=== PATIENT | male | born 1960 | race Caucasian/White ===

== ENCOUNTER 2021-10-28 11:00 | Outpatient (RCR) | payer BC, MEDICARE, SELFPAY ==
--- OUTSIDE RECORDS SUMMARY | 2021-10-16 14:41 | XMS_ITS | Continuity of Care Document ---
:1960 Author Care Team Providers Name Role Phone SEEN, ELSEWHERE Primary Care Physician Unavailable MD Marco Jarrett Attending Physician Allergies, Adverse Reactions, Alerts No known allergies Social History Smoking Status Unknown if ever smoked Additional Data Assigned Sex Male Problems Active Problems Medical Problem Onset Date Status Adenocarcinoma of right lung, stage 2021 Acti ve 3 Medications Medication Status Dose Units Route Directions Qty Days Start End Ins tructions Date Date Benzonatate Active 100 MG PO Three Times 10 (Tessalon A Day as Perles) 100 Mg needed CAP Dexamethasone Active 8 MG PO [id number] 04 October S TART DAY , PRIOR TO 2021 CHEMO 3:35pm Escitalopram Active 10 MG PO Daily 30 Oxalate (Lexapro) 10 Mg TAB Folic Acid Active 400 MCG PO Daily 100 Guaifenesin-Co Active 10 ML PO Every 4 120 deine Hours as (Codeine/Guaif needed enesin 100-10 Mg/5ML) 1 Kranthi KRANTHI Omeprazole Active 40 MG PO Daily 30 Ondansetron Active 8 MG PO Every 8 30 Hcl Hours as needed Prochlorperazi Active 10 MG PO Every 6 30 Fo r ne Maleate Hours as nausea /vomiti needed ng Tadalafil Active 20 MG PO As Needed 6 TAKE ONE (Cialis) 20 Mg TABLE T 30 MIN TAB TO 36 HRS PRIOR TO INTERCOURSE Dexamethasone Discontinu 4 MG PO As Directed 6 J une GIVE EVERY 6 ed as needed 13th, HOURS 2021 NEEDED FOR 2:33p CROUP m Dexamethasone Discontinu 4 MG PO .as September T kerrie on days ed Directed , , 2, 9, and 1 6 2021 2021 of first 2:17pm 2:33p cycle only. m Folic Acid Discontinu 1 MG PO Daily September ed , , 2021 2021 3:35pm 3:36p m Prochlorperazi Discontinu 10 MG PO Every 4-6 22 October Ju ne PRN ne Maleate ed Hours as , , Nausea /vomiti needed for 2021 2021 ng Nausea/Vomi 3:35pm 2:33p ting m Relevant Diagnostic Tests and/or Laboratory Data Laboratory Results Test Date/Time Result Interpretation Reference Result Comment Performing Range Site White Blood September 28, 5.07 5.00-10.00 [facility] Count 2021 [address] [facility] 2:20pm [place] [address] Red Blood Count September 28, 3.55 4.32-5.72 [facility] 2021 [address] [facility] 2:20pm [place] [address] Hemoglobin September 28, 10.3 13.5-17.5 [facility] 2021 [address] [facility] 2:20pm [place] [address] Hematocrit September 28, 31.8 38.8-50.0 [facility] 2021 [address] [facility] 2:20pm [place] [address] Mean September 28, 90 81-95 [facility] Corpuscular 2021 1999 [facility] Volume 2:20pm [place] [address] Mean September 28, 29 27-34 [facility] Corpuscular 2021 [address] [facility] Hemoglobin 2:20pm [place] [address] Mean September 28, 32 32-36 [facility] Corpuscular 2021 [address] [facility] Hemoglobin 2:20pm [place] [address] Concent Platelet Count September 28, 284 150-450 [facility] 2021 [address] [facility] 2:20pm [place] [address] RDW Coefficient September 28, 12.9 11.5-15.3 [facility] Variation 2021 [facility] [place] [address] Neutrophils (%) September 28, 65.6 50.0-70.0 [facility] (Auto) 2021 [address] [facility] 2:20pm [place] [address] Lymphocytes (%) September 28, 18.1 25.0-45.0 [facility] (Auto) 2021 [address] [facility] 2:20pm [place] [address] Monocytes (%) September 28, 11.6 0.00-11.0 [facility] (Auto) 2021 [address] [facility] 2:20pm [place] [address] Eosinophils (%) September 28, 4.3 0.0-7.0 [facility] (Auto) 2021 [address] [facility] 2:20pm [place] [address] Basophils (%) September 28, 0.2 0.0-3.0 [facility] Lab (Auto) 2021 [address] [facility] 2:20pm [place] [address] Immature September 28, 0.2 [facility] Granulocyte % 2021 1999 [facility] (Auto) 2:20pm [place] [address] Neutrophils # September 28, 3.32 1.70-7.00 [facility] Lab (Auto) 2021 [address] [facility] 2:20pm [place] [address] Lymphocytes # September 28, 0.92 0.90-2.90 [facility] Lab (Auto) 2021 [address] [facility] 2:20pm [place] [address] Monocytes # September 28, 0.59 0.30-0.90 [facility] Lab (Auto) 2021 [address] [facility] 2:20pm [place] [address] Eosinophils # September 28, 0.22 0.00-0.50 [facility] Lab (Auto) 2021 [address] [facility] 2:20pm [place] [address] Basophils # September 28, 0.01 0.00-0.20 [facility] Lab (Auto) 2021 [address] [facility] 2:20pm [place] [address] Immature September 28, 0.01 [facility] Granulocyte # 2021 [address] [facility] (Auto) 2:20pm [place] [address] Random Glucose September 28, 105 60-115 [facility] 2021 [address] [facility] 2:20pm [place] [address] Blood Urea September 28, 15 7-30 [facility] Nitrogen 2021 [address] [facility] 2:20pm [place] [address] Creatinine September 28, 0.8 0.5-1.5 [facility] 2021 [address] [facility] 2:20pm [place] [address] Estimated September 28, 83.973 [facility] Creatinine 2021 1999 [facility] 2:20pm [place] [address] Sodium Level September 28, 137 135-149 [facility] 2021 [address] [facility] 2:20pm [place] [address] Potassium Level September 28, 3.9 3.6-5.1 [facility] 2021 [address] [facility] 2:20pm [facility] [address] Chloride Level September 28, 99 96-114 [facility] 2021 [address] [facility] 2:20pm [facility] [address] Carbon Dioxide September 28, 27 20-32 [facility] Level 2021 [address] [facility] 2:20pm [facility] [address] Calcium Level September 28, 9.3 8.4-10.6 [facility] 2021 [address] [facility] 2:20pm [facility] [address] Total Protein September 28, 6.5 6.0-8.3 The use of [facility] 2021 Eltrombopag, a [address] [facility] 2:20pm [facility] [place] [address] stimulant used to treat thrombocytopenia and aplastic anemia, interferes with this measurement of total protein. A 5% bias has been observed. Albumin September 28, 3.8 3.3-5.0 [facility] 2021 [address] [facility] 2:20pm [facility] [address] Total Bilirubin September 28, 0.4 0.1-1.5 [facility] 2021 [address] [facility] 2:20pm [facility] [address] Aspartate Amino September 28, 79 12-35 [facility] Transf 2021 [address] [facility] (AST/SGOT) 2:20pm [place] [address] Alanine September 28, 143 4-50 [facility] Aminotransferas 2021 [address] [facility] e (ALT/SGPT) 2:20pm [place] [address] Alkaline September 28, 127 40-150 [facility] Phosphatase 2021 [address] [facility] 2:20pm [place] [address] Insurance Providers Guarantor Hector Norris Address [address] [place] [id number] Contact Info. Home Phone: Payer Policy Id Coverage Id Subscriber's Subscriber Id Effective E xpiration Name Date Date Medicare [id number] Jr, [id number] [address] [facility] [id number] Jr, Systems [facility] [id number] Hector [id number] Encounters Encounter Location(s) Arrival/Admit Date Discharge/Depart Date Provider(s) Registered [place] [facility] Recent Diagnosis Onset Date Adenocarcinoma of right lung, stage 3 Assessments Diagnosis Onset Date Resolution Status Adenocarcinoma of right Active lung, stage 3
--- NOTE | 2021-10-27 15:41 | ONC.NURNOTE ---
Received call from pt reporting his cough is generally worsening. He reports he has a hard time catching his breath during coughing fits; his tells him his color drains when he can't catch his breath. He is using guaifenesin with codeine as prescribed; he is not using the tessalon perles as he feels they increase the amount of phlegm in his throat. In general his SOB is increasing. Pt is scheduled to see Sara NoyolaAllen MONTENEGRO tomorrow; recommended he go to urgent care or ED with worsening respiratory symptoms. He feels he is stable enough to wait until tomorrow.
--- NOTE | 2021-10-28 09:14 | URNOTE ---
Addendum entered by Dhara Infante RN 11/16/21 14:44: AuthorizatioN: User: Estefany Francis Date: 10/02/21 13:13 Type: Eligibility Determination Note... Received request for prior auth for Pemetrexed ([id number]), Carboplatin (J9045), Pembrolizumab (J9271) and Aloxi (J2469). Per Patricia rehman [facility]([phone]),these do not require prior authorization. Call REf#[id number] Original Note: Received request for prior auth for Emend ([id number]). Pt has medicare and [employer] [place]. Prior authorization is not required as services are based on medical necessity and follow medicare guidelines.
[2021-10-28 11:30] LABS: Hemoglobin* 10.8 gm/dL (13.5-17.5); Immature Granulocytes Abs Auto 0.07 K/uL (0.00-0.30); Lymphocytes Percent Auto 8.9 % (20-44); Mean Corpuscular HGB Conc 34 gm/dL (32-36); Mean Corpuscular Hemoglobin 30 pg (26-34); Mean Corpuscular Volume 89 fL (80-100); Monocytes Percent Auto 5.3 % (0.0-11.0); Neutrophils Percent Auto 84.7 % (42.0-72.0); Platelet Count* 500 K/uL (140-440); RDW Coefficient of Variation % 14.7 % (11.5-15.5); White Blood Count* 6.09 K/uL (4.50-11.00)
[2021-10-28 11:34] LABS: Slide Review Reflex No
[2021-10-28 11:38] LABS: Albumin* 3.8 g/dL (3.3-5.0)
[2021-10-28 11:39] LABS: Chloride* 105 mmol/L (96-114); Potassium* 4.3 mmol/L (3.6-5.1); Sodium* 137 mmol/L (135-149)
[2021-10-28 11:41] LABS: Aspartate Amino Transferase* 35 U/L (12-35); Bilirubin Total* 0.3 mg/dL (0.1-1.5); Carbon Dioxide* 23 mmol/L (20-32); Creatinine* 0.7 mg/dL (0.5-1.5); Est. Creatinine Clearance* 64.96; Estimated Glomerular Filt Rate 104.83
[2021-10-28 11:42] LABS: Alkaline Phosphatase* 135 U/L (40-150); Blood Urea Nitrogen* 21 mg/dL (7-30); Calcium* 9.9 mg/dL (8.4-10.6); Glucose* 186 mg/dL (60-115); Total Protein* 6.6 g/dL (6.0-8.3)
[2021-10-28 11:55] LABS: Alanine Aminotransferase* 43 U/L (4-50)
[2021-10-28 12:11] LABS: Thyroid Stimulating Hormone* 0.222 uIU/mL (0.270-4.20)
[2021-10-28 12:57] LABS: SARS PCR* Negative SARS-CoV-2 (Negative)
[2021-10-28 13:13] LABS: Free T4 Free Thyroxine* 1.02 ng/dL (0.70-1.85)
[2021-10-29 20:30] LABS: Cortisol, Serum 1.5 ug/dL
[2021-10-29 20:52] LABS: Total T3 105 ng/dL (80-200)
--- NOTE | 2021-11-12 09:04 | ONC.NURNOTE ---
Heeler was asked to check on plan for patient and to determine if follow up is appropriate. Patient's last radiation treatment is scheduled for 11/18/2021, and appointmen to see provider and get treatment is 11/19/2021. These appointments will stay as planned.
--- NOTE | 2021-11-23 10:39 | ONC.NURNOTE ---
Care coordination: Per chart review, Mr. Norris was hospitalized at [facility] with worsening breathing. He was treated for pneumonia. [facility] is also assisting with Mr. Norris at this time. His radiation was interrupted last week. He is to be seen today, 11/23 with hopes to resume radiation to his right lung. He will need repeat PET followed by formulation of new chemo treatment plan either here at [facility] or at [facility] after completing radiation.
--- NOTE | 2021-11-24 14:46 | ONC.NURNOTE ---
Appts scheduled for Med Onc follow up completed XRT today message left on VM about next appt
== END 2021-11-22 23:59 | disposition home or self-care (01) ==
LOC: CCIC 11:00
PROVIDERS: Clinical Nurse Specialist; Visit Provider Internal Medicine Hematology & Oncology
DX: C34.91 Malignant neoplasm of unspecified part of right bronchus or lung (principal); M21.371 Foot drop, right foot; R06.09 Other forms of dyspnea; R53.83 Other fatigue; D64.9 Anemia, unspecified
CPT/HCPCS: 36415; 80053; 82533; 84439; 84443; 84480; 85025; 87635; 99213; 99215

== ENCOUNTER 2021-10-30 14:29 | Outpatient (CLI) | payer BC, MEDICARE, SELFPAY ==
--- NOTE | 2021-10-30 15:00 | CRLHL7_ITS ---
For Patients: As a result of the Century Cures Act, medical imaging exams and procedure reports are released immediately into your electronic medical record. You may view this report before your referring provider. If you have questions, please contact your health care provider. Indication: Cough Technique: Post contrast CT chest. 75 cc Isovue 370 intravenous contrast. Please note that all CT scans at this facility use dose modulation, iterative reconstruction, and/or weight-based dosing when appropriate to reduce radiation dose to as low as reasonably achievable. Comparison: CT-PET 08/13/2021, CT chest 07/31/2021 Findings: Large right perihilar mass measuring approximately 4.7 cm with spiculated margins. Narrowing of the interlobar artery without pulmonary embolism. Bronchovascular adenopathy extending along the right lower lobe bronchovascular tree. Narrowing of the right-sided airways with thickening of the bronchovascular structures extending into the right upper lobe and right middle lobe. Partial collapse of the right lung noted. Small right pleural effusion. Bulky mediastinal adenopathy involving the subcarinal and right paratracheal regions along with the precarinal region. Smaller lymph nodes in the prevascular space. Hyperdense exophytic cyst upper pole right kidney. No adrenal mass. Degenerative changes. No acute fracture. Multiple Schmorl`s nodes. Since the prior studies, the large right perihilar mass is similar. The right pleural thickening/right pleural effusion has developed since the prior study. Bulky mediastinal adenopathy has increased. There is increased volume loss within the right lung and increased narrowing of the right middle lobe airways. Impression: Large right perihilar mass with encasement of the interlobar artery and right-sided airways along with partial collapse of the right lung and adjacent bulky mediastinal adenopathy. The findings have progressed since the prior exams. Please note that all CT scans at this facility use dose modulation, iterative reconstruction, and/or weight-based dosing when appropriate to reduce radiation dose to as low as reasonably achievable. Dictated by Jason Perez MD @ 11/03/2021 10:54:26 AM (Electronically Signed)
--- NOTE | 2021-10-30 15:30 | CRLHL7_ITS ---
For Patients: As a result of the Century Cures Act, medical imaging exams and procedure reports are released immediately into your electronic medical record. You may view this report before your referring provider. If you have questions, please contact your health care provider. DATE: 10/30/2021. CLINICAL HISTORY: Lung cancer, rule out intracranial metastases. TECHNIQUE: Multi-sequence, multiplanar MRI examination of the brain was performed. Contrast: 15mL of Dotarem administered intravenously. COMPARISON: Brain MRI dated 09/10/2021. FINDINGS: There is no pathologic intracranial enhancement to suggest metastatic disease. The previously-seen enhancing foci within the left insula, superior right frontal gyrus, and left cerebellar hemisphere are not appreciated on the current examination. There is no restricted diffusion in the brain to indicate the presence of acute ischemia. No extra-axial collection, mass effect, or midline shift. Multiple scattered foci and more patchy regions of T2 prolongation within the white matter of both hemispheres as well as the bailey most consistent with sequela of chronic small vessel ischemia. Parenchymal volume is within normal limits for patient age. Ventricles are normal in size and morphology. The orbits are unremarkable. Mild mucosal thickening of the inferior right maxillary sinus. The mastoid air cells are clear. The calvarium is unremarkable. IMPRESSION: 1. No pathologic intracranial enhancement to suggest metastatic disease. 2. No acute intracranial abnormality. 3. Findings most consistent with sequela of chronic small vessel ischemia. Dictated by Cale Tan MD @ 11/01/2021 1:53:34 PM (Electronically Signed)
== END 2021-10-30 14:30 | disposition home or self-care (01) ==
LOC: CT 14:30
PROVIDERS: Visit Provider Clinical Nurse Specialist
DX: R51.9 Headache, unspecified (principal); I67.82 Cerebral ischemia; C34.91 Malignant neoplasm of unspecified part of right bronchus or lung
CPT/HCPCS: 70553; 71260; A9575; Q9967

== ENCOUNTER 2021-11-02 20:11 | Emergency (ER) | payer BC, MEDICARE, SELFPAY ==
[2021-11-02 20:20] VITALS: BP 114/75; PULSE 101; RESP 22; TEMP 36.7; O2SAT 96; BMI 27.8
--- NOTE | 2021-11-02 20:34 | CRLHL7_ITS ---
For Patients: As a result of the Century Cures Act, medical imaging exams and procedure reports are released immediately into your electronic medical record. You may view this report before your referring provider. If you have questions, please contact your health care provider. CLINICAL HISTORY: Pain and swelling right lower extremity TECHNIQUE: A compression venous ultrasound exam was performed of the right lower extremity using prasad-scale imaging, color Doppler and spectral Doppler analysis. FINDINGS: Sonographic imaging of the right lower extremity demonstrates normal compressibility and color Doppler venous blood flow within the common femoral vein, deep femoral vein, and the proximal greater saphenous vein. Within the thigh, the femoral vein is patent and compressible. At a lower level, the popliteal and posterior tibial veins also show normal compressibility and color Doppler venous blood flow. Limited imaging of the contralateral groin demonstrates a normal spectral waveform and color Doppler venous blood flow within the left common femoral vein. IMPRESSION: Normal venous ultrasound exam. No evidence of deep vein thrombosis within the right lower extremity. Dictated by Delisa Dupont MD @ 11/02/2021 9:44:02 PM (Electronically Signed)
--- NOTE | 2021-11-02 21:21 | ED_ITS ---
HPI - Extremity Problem General Chief complaint: Lower Extremity Swelling Stated complaint: Right foot swelling Time Seen by Provider: 11/02/21 20:32 History of Present Illness HPI Narrative: Patient is a 61-year-old currently being treated for lung cancer. Comes in with subjective swelling of his right calf and ankle. He has no symptoms for last several days. He has had chronic footdrop on the right. No other significant symptoms no chest pain no shortness of breath orthopnea no PND. Patient has chronic cough from his lung cancer. There is no redness of the right lower extremity. Related Data Home Medications Medication Instructions Recorded Confirmed benzonatate 100 mg capsule 100 mg PO TID PRN 10/28/21 10/28/21 codeine-guaifenesin oral syrup 10 ea PO Q4H PRN 10/28/21 10/28/21 dexamethasone 4 mg tablet 4 mg PO BID 10/28/21 10/28/21 escitalopram oxalate 10 mg tablet 10 mg PO DAILY 10/28/21 10/28/21 folic acid 400 mcg tablet 400 mcg PO DAILY 10/28/21 10/28/21 omeprazole 40 mg capsule,delayed 40 mg PO DAILY 10/28/21 10/28/21 release ondansetron 8 mg disintegrating 8 mg PO Q8H PRN 10/28/21 10/28/21 tablet prochlorperazine maleate 10 mg 10 mg PO Q6H PRN 10/28/21 10/28/21 tablet tadalafil 20 mg tablet 20 mg PO DAILY PRN 10/28/21 10/28/21 Allergies Allergy/AdvReac Type Severity Reaction Status Date / Time No Known Drug Allergies Allergy Verified 10/28/21 11:42 Review of Systems Status of ROS: Reports: 10 or more systems reviewed and unremarkable except as noted in History and below [facility] Medical History Hx of prostatic malignancy Hx of rheumatoid arthritis 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 Left inguinal hernia Lumbago Lung neoplasm Myalgia and myositis, unspecified Thoracic or lumbosacral neuritis or radiculitis Surgical History History of total right knee replacement S/P prostatectomy S/P rotator cuff repair Social History Smoking Status: Former smoker What tobacco products do you use: cigarettes Smoking quit date/years: <= 15 years ago Do you use any of these nicotine containing products: None Second hand tobacco smoke exposure: No How often do you have a drink containing alcohol: never AUDIT-C Alcohol total score: 0 Non-prescribed substance use: denies use Exam Narrative: Exam Narrative: EXAM GENERAL: Patient appears comfortable and well. EYES: No scleral icterus. ENT: Tympanic membranes and oropharynx normal. THYROID: no thyroid nodules or thyromegaly. LYMPH: No supraclavicular or cervical lymphadenopathy. SKIN: Visible skin seen during exam normal or with benign process only. EXT: Trace lower extremity edema the right foot ankle and calf. HEART: Regular rate and rhythm with no murmurs, rubs, or gallops. LUNGS: Clear to auscultation bilaterally with no crackles or wheezes. ABD: Soft, non tender, non distended. PSYCH: Good eye contact, speech is not pressured. Const: Vital Signs, click to edit/add: Vital Signs - 24 hr 11/02/21 20:20 Temperature 98.1 F Pulse Rate [Left F emoral] 101 H Pulse Rate [Left P ulse Oximeter] 101 H Respiratory Rate 22 Blood Pressure [Le ft Upper Arm] 114/75 Pulse Oximetry 96 Course Course Hospital Course: Ultrasound of the right lower extremities unremarkable for DVT. Questionable underlying mass which will be reviewed with Oncology. Vital Signs Vital signs: Initial Vital Signs Temperature 98.1 F 11/02/21 20:20 Temperature Source Temporal Artery Scan 11/02/21 20:20 Pulse Rate 101 H 11/02/21 20:20 Pulse Rhythm 11/02/21 20:20 Respiratory Rate 22 11/02/21 20:20 Blood Pressure 114/75 11/02/21 20:20 Blood Pressure Mean 88 11/02/21 20:20 Blood Pressure Position Sitting 11/02/21 20:20 Pulse Oximetry 96 11/02/21 20:20 Oxygen Delivery Method 11/02/21 20:20 Vital Signs Temperature 98.1 F 11/02/21 20:20 Pulse Rate 101 H 11/02/21 20:20 Respiratory Rate 22 11/02/21 20:20 Blood Pressure 114/75 11/02/21 20:20 Pulse Oximetry 96 11/02/21 20:20 Temperature 98.1 F 11/02/21 20:20 Pulse Rate 101 H 11/02/21 20:20 Respiratory Rate 22 11/02/21 20:20 Blood Pressure 114/75 11/02/21 20:20 Pulse Oximetry 96 11/02/21 20:20 Discharge Plan Discharge Clinical Impression: Edema Instructions: Edema (ED) Activity Level: No Restrictions Discharge Diet: Regular Prescriptions: No Action benzonatate 100 mg capsule 100 mg PO TID PRN (Reason: cough) 0RF dexamethasone 4 mg tablet 4 mg PO BID 0RF Rx Instructions: BID X3 days. Start day before chemo escitalopram oxalate 10 mg tablet 10 mg PO DAILY 0RF folic acid 400 mcg tablet 400 mcg PO DAILY 0RF codeine-guaifenesin Syrup 10 ea PO Q4H PRN0RF Rx Instructions: 10ml q4h omeprazole 40 mg capsule,delayed release(DR/EC) 40 mg PO DAILY 0RF ondansetron 8 mg tablet,disintegrating 8 mg PO Q8H PRN0RF prochlorperazine maleate 10 mg tablet 10 mg PO Q6H PRN0RF tadalafil 20 mg tablet 20 mg PO DAILY PRN0RF Rx Instructions: administer approximately 30min before sexual activity; do not use more than 1 dose per 24hrs Follow Up/Referrals: Provider,Not a Local [Primary Care Provider] - Stand Alone Forms: [employer] Info Instructions
== END 2021-11-02 21:32 | disposition home or self-care (01) ==
LOC: ED 21:27
PROVIDERS: Emergency Provider Internal Medicine
DX: R60.0 Localized edema (principal)
CPT/HCPCS: 93971; 99283; 99284

== ENCOUNTER 2021-12-24 14:36 | Outpatient (CLI) | payer BC, MEDICARE, SELFPAY ==
--- NOTE | 2021-12-24 14:45 | CRLHL7_ITS ---
For Patients: As a result of the 21st Century Cures Act, medical imaging exams and procedure reports are released immediately into your electronic medical record. You may view this report before your referring provider. If you have questions, please contact your health care provider. INDICATION: Non-small cell lung cancer TECHNIQUE: Following IV injection of FDG with uptake of 68 minutes, noncontrast CT scan followed by a PET scan were acquired along the length of body from the head to the upper thighs. Noncontrast CT was used for anatomic localization and photon attenuation correction of the PET-CT scan. - Blood glucose level: 123. - FDG dose (mCi): 11.68. COMPARISON: 08/13/2021 PET-CT. FINDINGS: Head/Neck: Multiple tracer avid right supraclavicular lymph nodes are increased from prior with SUV max of 8.0. - Chest: Right hilar mass with SUV max of 7.0 previously 20.2 measuring approximately 3.2 x 2.2 cm previously 5.8 x 4.4 cm. Subcarinal lymph node with SUV max of 5.1 previously 18.3 measuring 1.7 cm short axis previously 2.1 cm. Right paratracheal lymph node SUV max of 3.6 previously 13.2. Right upper lobe pulmonary nodule with SUV max of 4.4 is new from prior measuring 1.8 cm. Multiple additional smaller bilateral pulmonary nodules are new from prior more pronounced on the left. For example lingular nodule with SUV max of 4.8 measures 0.9 cm in diameter. - Background liver parenchyma with SUV mean of 1.9. No abnormal tracer uptake. - Musculoskeletal: Multiple tracer avid bone lesions consistent with bone metastases, including left scapula, left 12th rib, sacrum and right proximal femur. There is associated destruction of the anterior cortex of the right proximal femur with SUV max of 12.0. - CT findings: Heart is mildly enlarged. Small pericardial effusion. Right middle lobe atelectasis. Small bilateral pleural effusions. Pulmonary nodules as above. Thoracic lymph nodes and right hilar mass as above. Bone metastasis above. Lumbar spine hardware similar to prior. IMPRESSION : 1. Multiple new tracer avid bone metastases including right proximal femur lesion with destruction of anterior cortex. Recommend orthopedic consultation. 2. Tracer avid right supraclavicular lymph node metastases, increased from prior. 3. Multiple new bilateral pulmonary nodules, likely metastases. 4. Right hilar mass is decreased in size and uptake. Mediastinal lymph nodes are decreased in size and uptake. Dictated by Jason Daniel MD @ 12/30/2021 3:09:45 PM (Electronically Signed)
== END 2021-12-24 14:37 | disposition home or self-care (01) ==
LOC: RAD 14:39
PROVIDERS: Visit Provider Internal Medicine Medical Oncology
DX: C34.2 Malignant neoplasm of middle lobe, bronchus or lung (principal); R59.9 Enlarged lymph nodes, unspecified; R91.8 Other nonspecific abnormal finding of lung field
CPT/HCPCS: 78815; A9552

== ENCOUNTER 2022-02-01 11:42 | Emergency (ER) | payer BC, MEDICARE, SELFPAY ==
[2022-02-01 11:50] VITALS: BP 125/75; PULSE 78; RESP 20; TEMP 37.4; O2SAT 97; BMI 28.0
--- NOTE | 2022-02-01 12:41 | CRLHL7_ITS ---
For Patients: As a result of the Century Cures Act, medical imaging exams and procedure reports are released immediately into your electronic medical record. You may view this report before your referring provider. If you have questions, please contact your health care provider. INDICATION: Shortness of breath, wheezing TECHNIQUE: Chest 2 views COMPARISON: CT-PET 12/24/2021 FINDINGS: Increased prominence of the bronchovascular structures when compared to the prior study with interstitial thickening resulting in bronchial wall thickening and patchy ill-defined airspace opacities within the right lower lobe. Similar appearance of the right paramediastinal/right perihilar tissues. Tortuosity of the aorta. Trace right pleural effusion. No pneumothorax. Osseous structures are similar. IMPRESSION: Bilateral lower lobe bronchiolitis and right lower lobe infiltrate with trace right pleural effusion. Dictated by Jason Perez MD @ 02/01/2022 1:35:19 PM (Electronically Signed)
[2022-02-01 12:58] LABS: SARS PCR* Negative SARS-CoV-2 (Negative)
--- OUTSIDE RECORDS SUMMARY | 2022-02-01 13:13 | XMS_ITS | Encounter Summary ---
:1960 Author Organization [place] Address [address] [place] [address] Care Team Providers Name Role Phone Tin Hernandez Primary Care Provider Encounter Details Date Type Department Care Team Description 01/07/2022 Ancillary Procedure [facility] [place] [facility] [address] [place] [address] [place], [place] [phone] (Wo rk) [id number] Social History Tobacco Use Types Packs/Day Years Used Date Smoking Tobacco: Former Smokeless Tobacco: Never Alcohol Use Standard Drinks/Week Comments Yes 0 (1 standard drink = 0.6 oz pure alcoho l) Sex Assigned at Date Recorded Not on file COVID-19 Exposure Response Date Recorded In the last 10 days, have you been in contact with No / Unsu re 01/07/2022 12:10 PM CDT someone who was confirmed or suspected to have Coronavirus/COVID-19? documented as of this encounter Plan of Treatment Not on filedocumented as of this encounter Procedures Procedure Name Priority Date/Time Associated Diagnosis Comme nts POC US GUIDANCE Routine 01/07/2022 12:03 PM Resul ts for this NEEDLE PLACEMENT CDT procedure a re in the results section. documented in this encounter Results POC US Guidance Needle Placement (01/07/2022 12:03 PM CDT) Specimen (Source) Anatomical Location Collection Method / Collectio n Time Received Time / Laterality Volume Narrative [facility] - 01/07/2022 12:03 PM CDT Ultrasound was performed as guidance to an anesthesia procedure. ??Click PACS images hyperlink below to view an y stored images. ??For specific procedure details, view procedure note a uthored by anesthesia. Hecotr Castillo MD IMG POCUS Performing Organization Address City/State/ZIP Code Phon e Number [facility] documented in this encounter Visit Diagnoses Not on filedocumented in this encounter Care Teams Quarryman Relationship Specialty Start Date End Date Tin Hernandez PCP - General Family Medicine 01/06/[address] [place] [address] documented as of this encounter
--- OUTSIDE RECORDS SUMMARY | 2022-02-01 13:13 | XMS_ITS | Clinical Summary ---
:1960 Author Organization [place] Address [address] [place] [address] Care Team Providers Name Role Phone RyanTin chance Primary Care Provider Allergies No known active allergies Medications Medication Sig Dispensed Refills Start End Status Date Date aspirin-acetaminophe Take 1 tablet 0 Active n-caffeine (EXCEDRIN by mouth 2 MIGRAINE) 250-250-65 times daily MG tablet as needed LD 12/07 guaiFENesin-codeine Take 10 mLs 0 Active (ROBITUSSIN AC) by mouth 2 2 100-10 MG/5ML times daily solution as needed escitalopram Take 10 mg by 0 Act giovanni (LEXAPRO) 10 MG mouth daily 2 tablet folic acid (FOLVITE) Take 400 mcg 0 Active 400 MCG tablet by mouth 2 daily ondansetron (ZOFRAN) Take 8 mg by 0 Active 8 MG tablet mouth 2 times 2 daily as needed tadalafil (CIALIS) Take 20 mg by 0 Active 20 MG tablet mouth daily as needed diltiazem ER Take 240 mg 0 Activ e (DILT-XR) 240 MG 24 by mouth 2 hr ER beaded capsule daily albuterol (PROAIR Inhale 2 0 Ac tive HFA/PROVENTIL puffs into 2 HFA/VENTOLIN HFA) the lungs 4 108 (90 Base) times daily MCG/ACT inhaler as needed ipratropium - Inhale 3 mLs 0 Act giovanni albuterol 0.5 mg/2.5 into the 2 mg/3 mL (DUONEB) lungs 2 times 0.5-2.5 (3) MG/3ML daily as neb solution needed omeprazole Take 40 mg by 0 Activ e (PRILOSEC) [address] mouth daily capsule senna-docusate Take 1-2 30 tablet 0 Activ e (SENOKOT-S/PERICOLAC tablets by 2 E) 8.6-50 MG mouth 2 times tabletIndications: daily Take Osteolytic lesion while on oral due to metastasis narcotics to (H) prevent or treat constipation. polyethylene glycol Take 17 g by 7 packet 0 Active (MIRALAX) 17 g mouth daily 2 packetIndications: Osteolytic lesion due to metastasis (H) acetaminophen Take 2 60 tablet 0 Active (TYLENOL) 325 MG tablets (650 2 tabletIndications: mg) by mouth Osteolytic lesion every 4 hours due to metastasis as needed for (H) other (mild pain) oxyCODONE Take 1-2 20 tablet 0 Active (ROXICODONE) 5 MG tablets (5-10 2 tabletIndications: mg) by mouth Osteolytic lesion every 6 hours due to metastasis as needed for (H) moderate to severe pain rivaroxaban Take 1 tablet 35 tablet 0 Acti ve ANTICOAGULANT (10 mg) by 2 (XARELTO) 10 MG TABS mouth daily tabletIndications: Osteolytic lesion due to metastasis (H) celecoxib (CELEBREX) Take 1 14 capsule 0 Active 200 MG capsule (200 2 capsuleIndications: mg) by mouth Osteolytic lesion daily for 14 due to metastasis days Do not (H) take within 6 hours of ibuprofen (MOTRIN, ADVIL) or ketorolac (TORADOL) if prescribed. hydrOXYzine (ATARAX) Take 1 tablet 30 tablet 0 Active 25 MG (25 mg) by 2 tabletIndications: mouth every 6 Osteolytic lesion hours as due to metastasis needed for (H) itching or anxiety (with pain, moderate pain) ibuprofen Take 800 mg 0 Disconti nued (ADVIL/MOTRIN) 800 by mouth 3 2 022 (Stop at MG tablet times daily Discharg e) as needed pantoprazole Take 40 mg by 0 Dis continued (PROTONIX) 40 MG EC mouth daily 2 022 (Medication tablet Reconcilia tion Clean Up) prochlorperazine Take 10 mg by 0 Discontinued (COMPAZINE) 10 MG mouth 2 times 2 022 (Medication tablet daily as Reconcilia tion needed Clean Up) oxyCODONE Take 5 mg by 0 Discont inued (ROXICODONE) 5 MG mouth every 4 2 022 (Stop at tablet hours as Discharge) needed for mild pain Active Problems Problem Noted Date 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 Hector Castillo MD 01/07/2022 - Hospital Encounter Med Surg Wayne Humphries MD Osteol ytic lesion due 01/08/2022 to metastasis ( H) (Primary Dx) 01/07/2022 Travel 01/05/2022 Travel from Last 3 Months Social History Tobacco Use Types Packs/Day Years [...] was confirmed or suspected to have Coronavirus/COVID-19? Last Filed Vital Signs Vital Sign Reading Time Taken Comments Blood Pressure 119/73 01/08/2022 7:34 AM CDT Pulse 70 01/08/2022 7:34 AM CDT Temperature 36.3 ??C (97.4 ??F) 01/08/2022 7:34 AM CDT Respiratory Rate 16 01/08/2022 7:34 AM CDT Oxygen Saturation 95% 01/08/2022 7:34 AM CDT Inhaled Oxygen Concentration - - Weight 79 kg (174 lb 3.2 oz) 01/07/2022 5:10 PM CDT Height 167.6 cm (5' 6) 01/05/2022 11:00 AM CDT Body Mass Index 28.12 01/05/2022 11:00 AM CDT Plan of Treatment Health Maintenance Due Date Last Done Comments ADVANCE CARE PLANNING 1960 ANNUAL REVIEW OF HM ORDERS 1960 COPD ACTION PLAN 1960 CT COLONOGRAPHY 1960 FIT-DNA (Cologuard) 1960 FIT 1960 FLEX SIG 1960 SPIROMETRY 1960 Pneumococcal Vaccine: 1966 Pediatrics (0 to 5 Years) and At-Risk Patients (6 to 64 Years) (1 - PCV) HIV SCREENING 1975 HEPATITIS C SCREENING 1978 MEDICARE ANNUAL WELLNESS 1978 VISIT ZOSTER IMMUNIZATION (1 of 1979 2) LIPID 1995 PHQ-2 (once per calendar 04/25/2021 year) COVID-19 Vaccine (4 - 06/08/2021 04/13/2021, 09/24/2020, Booster for Pfizer series) 09/03/2020 INFLUENZA VACCINE (#1) 2021 02/12/2021, 01/27/2020, 02/26/2019, Additional history exists COLONOSCOPY 02/23/2027 02/23/2017 COLORECTAL CANCER SCREENING 02/23/2027 DTAP/TDAP/TD IMMUNIZATION 03/05/2031 03/05/2021, 12/09/2008 (3 - Td or Tdap) HEPATITIS B IMMUNIZATION Aged Out 11/23/2013, 07/03/2013, No longer eligible 06/04/2013 based on patient 's age to complete this topic IPV IMMUNIZATION Aged Out No longer eligi ble based on patient 's age to complete this topic MENINGITIS IMMUNIZATION Aged Out No longe r eligible based on patient 's age to complete this topic Medical Devices Implanted Type Area Milk Driver Device Identifier Shelf Model / Expiration Serial / Date Lot Synthes Locking Screw Im Nail 5 X 46mm Metallic Right: SYNTHES [id number] 08/23/2031 [id number] / Implanted: Qty: 1 on 01/07/2022 by Wayne Humphries MD at [facility] Hardware/Anc Hip / hor [id number] Procedures Procedure Name Priority Date/Time Associated Comments Diagnosis HEMOGLOBIN Routine 01/08/2022 5:36 AM Results f or this CDT procedure are i n the results section. XR SURGERY MARK Routine 01/07/2022 3:53 PM Result s for this FLUORO GREATER THAN CDT procedur e are in 5 MIN the results section. ANE SPINAL BLOCK Routine 01/07/2022 2:05 PM Resul ts for this FORM CDT procedure are i n the results section. INTERNAL FIXATION, 01/07/2022 2:00 PM Lung cancer FRACTURE, CDT metastatic to bone TROCHANTERIC, HIP, (H) USING PINS OR RODS Lesion of femur Case Notes SYNTHES RECON NAIL LOANERS.N blayne Carnes. [phone] John RAllen [phone] Ernestina Hamzah [phone] Special Needs C-Arm - Removed C-Arm (confl ict) to get scheduled - ok to do per Jeannette 01/01/22 Pranav GOLDBERG Table ABO/RH TYPE AND SCREEN STAT 01/07/2022 12:13 PM CDT Results for this procedure are i n the results section . TYPE AND SCREEN, ADULT STAT 01/07/2022 12:13 PM CDT Results for this procedure are i n the results section . ERYTHROCYTE SEDIMENTATION STAT 01/07/2022 12:13 PM CDT Results for this RATE AUTO procedure are i n the results section . CRP INFLAMMATION STAT 01/07/2022 12:13 PM CDT Results for this procedure are i n the results section . INR STAT 01/07/2022 12:13 PM CDT Resu lts for this procedure are i n the results section . CREATININE STAT 01/07/2022 12:13 PM CDT Resu lts for this procedure are i n the results section . POTASSIUM STAT 01/07/2022 12:13 PM CDT Resu lts for this procedure are i n the results section . CBC WITH PLATELETS STAT 01/07/2022 12:13 PM CDT Results for this procedure are i n the results section . POC US GUIDANCE NEEDLE Routine 01/07/2022 12:03 PM CDT Results for this PLACEMENT procedure are i n the results section . EKG CARDIAC - HIM SCAN 01/05/2022 1:43 PM CDT from Last 3 Months Results (ABNORMAL) Hemoglobin (01/08/2022 5:36 AM CDT) P athologist Signature Hemoglobin 10.7 (L) 13.3 - 01/08/2022 [facility] 17.7 g/dL 5:42 AM CDT Specimen Anatomical Collection Method / Collection Time Recei ry Time (Source) Location / Volume Laterality Blood STRUCTURE OF RIGHT Venipuncture / 01/08/2022 5:36 12/24 5:39 UPPER LIMB / Unknown AM CDT AM CDT Unknown Jason Suero PA-C LAB - BLOOD ORDERABLES Performing Organization Address City/State/ZIP Code Phon e Number [facility] [place] [address] [address] [facility] XR Surgery MARK Fluoro G/T 5 Min (01/07/2022 3:53 PM CDT) Specimen (Source) Anatomical Location Collection Method / Collectio n Time Received Time / Laterality Volume Narrative [facility] - 01/07/2022 3:56 PM CDT This exam was marked as non-reportable because it will not be read by a radiologist or a [place] non-radiologis t provider. Wayne Humphries MD IMG DIAGNOSTIC IMAGING ORDER DUNG Performing Organization Address City/State/ZIP Code Phon e Number [facility] Spinal Block (01/07/2022 2:05 PM CDT) Narrative Coleman Oneill MD - 01/07/2022 2:05 PM CDT Coleman Oneill MD ? 01/07/2022 ??2:11 PM Intrathecal injection Procedure Note Pre-Procedure Staff - ? Anesthesiologist: ??Jenni Oneill MD ? Performed By: anesthesiologist ? Location: OR ? Procedure Start/Stop Times: 2021 2:05 PM and 01/07/2022 2:08 PM ? Pre-Anesthestic Checklist: patien t identified, IV checked, risks and benefits discussed, informed consent, mo nitors and equipment checked, pre-op evaluation, at physician/surgeon' s request and post-op pain management Timeout: ? Correct Patient: Yes ? Correct Procedure: Yes ? Correct Site: Yes ? Correct Position: Yes Procedure Documentation Procedure: intrathecal injection ? Patient Position: sitting ? Skin prep: Chloraprep ? Insertion Site: L4-5, L3-4. (righ t paramedian approach). ? Needle Gauge: 24. ? Needle Length (Inches): 3.5 ? Spinal Needle Type: Pencan ? Introducer used ? # of attempts: 1 and ??# of redir ects: Assessment/Narrative ? Paresthesias: No. ? CSF fluid: clear. Medication(s) Administered Medication Administration Time: 2:05 PM Coleman Oneill MD DC ANESTHESIA Adult Type and Screen (01/07/2022 12:13 PM CDT) [facility] Signature ABO/RH(D) O POS 01/07/2022 [facility] B[facility] 12:15 PM BANK CDT Antibody Negative Negative 01/07/2022 [facility] Screen 12:15 PM BANK CDT SPECIMEN [id number] 01/07/2022 [facility] B[facility] EXPIRATION 12:15 PM BANK DATE CDT Specimen Anatomical Collection Method / Collection Time Recei ry Time (Source) Location / Volume Laterality Blood BLOOD SPECIMEN / Venipuncture / 01/07/2022 12:13 01/07 Unknown Unknown PM CDT 12:22 PM CDT Jason Suero PA-C LAB - BLOOD BANK TEST ORDER Performing Organization Address [facility] Phon e Number [facility] B[facility] [address] [place] [id number] INR (01/07/2022 12:13 PM CDT) P athologist Signature INR 0.94 0.85 - 1.15 01/07/2022 [facility] 12:36 PM CDT Specimen Anatomical Collection Method / Collection Time Recei ry Time (Source) Location / Volume Laterality Blood BLOOD SPECIMEN / Venipuncture / 01/07/2022 12:13 01/07 Unknown Unknown PM CDT 12:22 PM CDT Jason Suero PA-C LAB - BLOOD ORDERABLES Performing Organization Address [facility] Phon e Number [facility] [place] [address] Potassium (01/07/2022 12:13 PM CDT) athologist Signature Potassium 4.3 3.5 - 5.0 01/07/2022 [facility] mmol/L 12:38 PM CDT Specimen Anatomical Collection Method / Collection Time Recei ry Time (Source) Location / Volume Laterality Blood BLOOD SPECIMEN / Venipuncture / 01/07/2022 12:13 01/07 Unknown Unknown PM CDT 12:22 PM CDT Jason Suero PA-C LAB - BLOOD ORDERABLES Performing Organization Address City/[facility]/ZIP [place] [address] (ABNORMAL) Erythrocyte sedimentation rate auto (01/07/2022 12:13 PM CDT) [facility] gist Method Time Signature Erythrocyte 25 (H) 0 - 15 01/07/2022 [facility] Sedimentation Rate mm/hr 1:07 PM CDT Specimen Anatomical Collection Method / Collection Time Recei ry Time (Source) Location / Volume Laterality Blood BLOOD SPECIMEN / Venipuncture / 01/07/2022 12:13 01/07 Unknown Unknown PM CDT 12:22 PM CDT Jason Suero PA-C LAB - BLOOD ORDERABLES Performing Organization Address City/[facility]/ZIP [place] [address] (ABNORMAL) CRP inflammation (01/07/2022 12:13 PM CDT) athologist Signature CRP 1.4 (H) 0.0 - <0.8 01/07/2022 [facility] mg/dL 12:38 PM CDT Specimen Anatomical Collection Method / Collection Time Recei ry Time (Source) Location / Volume Laterality Blood BLOOD SPECIMEN / Venipuncture / 01/07/2022 12:13 01/07 Unknown Unknown PM CDT 12:22 PM CDT Jason Suero PA-C LAB - BLOOD ORDERABLES Performing Organization Address City/[facility]/ZIP Code Phon [place] [address] (ABNORMAL) Creatinine (01/07/2022 12:13 PM CDT) P athologist Signature Creatinine 0.69 (L) 0.70 - 01/07/2022 [facility] 1.30 mg/dL 12:38 PM CDT GFR Estimate >90 >60 01/07/2022 [facility] mL/min/1.7 12:38 PM CDT 3m2 Comment: Effective 2021 eGF Rcr in adults is calculated using the 2020 CKD-EPI creatinine equation which includ es age and gender (Megan et al., NEJM, DOI: 10.1056/EUQQvh9738777) Specimen Anatomical Collection Method / Collection Time Recei ry Time (Source) Location / Volume Laterality Blood BLOOD SPECIMEN / Venipuncture / 01/07/2022 12:13 01/07 Unknown Unknown PM CDT 12:22 PM CDT Jason Suero PA-C LAB - BLOOD ORDERABLES Performing Organization Address City/State/ZIP Code Phon e Number [facility] [place] [address] (ABNORMAL) CBC with platelets (01/07/2022 12:13 PM CDT) Patholo gist Method Time Signature WBC Count 13.2 (H) 4.0 - 11.0 01/07/2022 [facility] 10e3/uL 12:26 PM CDT RBC Count 4.02 (L) 4.40 - 01/07/2022 [facility] 5.90 12:26 PM CDT 10e6/uL Hemoglobin 12.0 (L) 13.3 - 01/07/2022 [facility] 17.7 g/dL 12:26 PM CDT Hematocrit 36.0 (L) 40.0 - 01/07/2022 [facility] 53.0 % 12:26 PM CDT MCV 90 78 - 100 01/07/2022 [facility] fL 12:26 PM CDT MCH 29.9 26.5 - 01/07/2022 [facility] 33.0 pg 12:26 PM CDT MCHC 33.3 31.5 - 01/07/2022 [facility] 36.5 g/dL 12:26 PM CDT RDW 15.2 (H) 10.0 - 01/07/2022 [facility] 15.0 % 12:26 PM CDT Platelet Count 417 150 - 450 01/07/2022 [facility] 10e3/uL 12:26 PM CDT Specimen Anatomical Collection Method / Collection Time Recei ry Time (Source) Location / Volume Laterality Blood BLOOD SPECIMEN / Venipuncture / 01/07/2022 12:13 01/07 Unknown Unknown PM CDT 12:22 PM CDT Jason Suero PA-C LAB - BLOOD ORDERABLES Performing Organization Address City/State/ZIP Code Phon e Number [facility] [place] [address] [facility] POC US Guidance Needle Placement (01/07/2022 12:03 PM CDT) Specimen (Source) Anatomical Location Collection Method / Collectio n Time Received Time / Laterality Volume Narrative [facility] - 01/07/2022 12:03 PM CDT Ultrasound was performed as guidance to an anesthesia procedure. ??Click PACS images hyperlink below to view an y stored images. ??For specific procedure details, view procedure note a uthored by anesthesia. Hector Castillo MD IMG POCUS Performing Organization Address City/State/ZIP Code Phon e Number [facility] EKG CARDIAC - HIM SCAN (01/05/2022 1:43 PM CDT) Specimen (Source) Anatomical Collection Method Collection Time Re ceived Time Location / / Volume Laterality 01/05/2022 1:43 PM CDT Narrative This result has an attachment that is no t available. Provider Outside ECG ORDERABLES from Last 3 Months Insurance Payer Benefit Plan / Subscriber ID Effective Phone Address T ype Group Dates MEDICARE MEDICARE [id number] 2021-Prese [phone] ATTN CLAI MS Medicare nt 40 [address] [place] [address] BCBS BCBS OF [place] [id number] 2021-Prese [phone] [address] [address] Indemnity nt [address] [place] [address] Advance Directives For more information, please contact: [phone] Latest Code Status on File Code Status Date Activated Date Inactivated Comments Full Code 01/07/2022 5:02 PM 01/08/2022 2:29 PM All basic an d advanced life-sustaining interventions are performed as norbert ropriate Question Answer Comments Code status determined by: Discussion with patient/ legal de cision maker Care Teams Fitter/Welder Relationship Specialty Start Date End Date Tin Hernandez PCP - General Family Medicine 01/06/[address] [place] [address]
--- OUTSIDE RECORDS SUMMARY | 2022-02-01 13:13 | XMS_ITS | Encounter Summary ---
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) [C34.90, C79.51] Lesion of femur [M89.9] [facility] Periop Services Procedures ZZC OPEN FIX INTER/SUBTROCH FX,PLATE ZZC OPEN FIX INTER/SUBTROCH FX,IMPLNT ZZC OPEN TREATMENT GREATER TROCHANTERIC FRACTURE PROPHYLACTIC INTRAMEDULLARY NAILING OF RIGHT HIP [address] [place], [place] [phone] Phone: Referral ID Status Reason Start Date Expiration Date Visits Requ ested Visits Authorized [id number] 1 1 Encounter Details Date Type Department Care Team Description 01/07/2022 Surgery [facility] Wayne Humphries M D PROPHYLACTIC [facility] Periop [facility] INTRAMEDULLARY NAILING OF Services [address] RIGHT [address] [place] [address] [place], [place] [phone] (Wo rk) [phone] [phone] Surgery Details Date/Time Status Location OR Service Patient Case Class Case Tr auma Class Type Case? 01/07/22 1:50 Posted [facility] OR Orthopedics Surgery Elective PM Main OR 02 Admit Panel 1 Procedure LRB Anes Op Region Wound Class Commen ts PROPHYLACTIC INTRAMEDULLARY NAILING OF Right Spinal Hip I-Clean RIGHT HIP Surgeon Surgeon Role Service Panel Wayne Humphries MD Primary Orthopedics 1 Jason Guzman PA-C Assisting 1 Case Notes [employer].Jose R Humphreys John PiersonAllen [phone] Ernestina ChildressAllen [phone] Special Needs C-Arm - Removed C-Arm (conflict) to get scheduled - ok to do per Jeannette 01/01/22 [facility], Pranav Table documented in this encounter Social History Tobacco Use Types Packs/Day Years [...] have Coronavirus/COVID-19? documented as of this encounter Last Filed Vital Signs Vital Sign Reading Time Taken Comments Blood Pressure 113/61 01/07/2022 1:40 PM CDT Pulse 67 01/07/2022 1:40 PM CDT Temperature 37.2 ??C (99 ??F) 01/07/2022 12:08 PM CDT Respiratory Rate 18 01/07/2022 1:40 PM CDT Oxygen Saturation 98% 01/07/2022 1:40 PM CDT Inhaled Oxygen Concentration - - Weight 77.1 kg (170 lb) 01/05/2022 11:00 AM CDT Height 167.6 cm (5' 6) 01/05/2022 11:00 AM CDT Body Mass Index 28.12 01/05/2022 11:00 AM CDT documented in this encounter Discharge Summaries Nikky Encinas PA-C - 01/08/2022 12:29 PM CDT ORTHOPEDIC DISCHARGE SUMMARY SUKHDEEP Murray 1960, Admission Date: 01/07/2022 Admission Diagnoses: 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 Humphries on 01/07/2022. There were no intraoperative complications and the patient was transferred to the recovery room and later the orthopedic unit in stable condition. Once the patient reached the orthopedic floor our orthopedic pain protocol was implemented along with the following: Anticoagulation Medications: Xarelto Therapy: PT and OT Activity: TTWB for comfort to increase as comfort allows Bracing: None Consultations during Admission: Hospitalist service for medical management. He will follow up with his oncologist and radiation oncologist through [facility] after discharge. COMPLICATIONS/SIGNIFICANT FINDINGS None DISCHARGE INFORMATION Condition at discharge: Good Discharge destination: Home Patient was seen by myself on the date of discharge. FOLLOW UP CARE Follow up with orthopedics in 10 days or sooner should the need arise. Ortho will continue to managepain control, post op anticoagulation and incision care. Follow up with your PCP for management of chronic medical problems and to evaluate for post op medical complications including constipation, nausea/vomiting, DVT/PE, anemia, changes in blood pressure, fevers/chills, urinary retention and atelectasis/pneumonia. Subjective Patient is doing well on POD #1. Pain is well controlled with oral medications. Ambulating. Tolerating oral intake. Voiding. Physical Exam BP 119/73 (BP Location: Right arm) Pulse 70 Temp 97.4 ??F (36.3 ??C) (Oral) Resp 16 Ht 1.676m (5' 6) Wt 79 kg (174 lb 3.2 oz) SpO2 95% BMI 28.12 kg/m?? The patient is A&Ox3. Appears comfortable, sitting up at bedside. Sensation is intact & equal to bilateral lower extremities in the L2 through S1 dermatomes. Calves aresoft and non-tender bilaterally Dorsiflexion and plantar flexion is intact & equal bilaterally. Fires quad. Appropriate flexion and extension of the toes. Brisk capillary refill in the toes. Palpable Right dorsalis pedis pulse. Right hip & thigh dressings C/D/I with no surrounding erythema. 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 [phone] Date: 01/08/2022 Time: 9:02 AM documented in this encounter Medications at Time of Discharge Medication Sig Dispensed Refills Start Date End Date acetaminophen (TYLENOL) Take 2 tablets (650 60 tablet 0 325 MG tabletIndications: mg) by mouth every 4 Osteolytic lesion due to hours as needed for metastasis (H) other (mild pain) albuterol (PROAIR Inhale 2 puffs into 0 2 HFA/PROVENTIL the lungs 4 times HFA/VENTOLIN HFA) 108 (90 daily as needed Base) MCG/ACT inhaler fvnmemo-wqzhlgftsvtch-fxs Take 1 tablet by 0 feine (EXCEDRIN MIGRAINE) mouth 2 times daily 250-250-65 MG tablet as needed LD 12/07 celecoxib (CELEBREX) 200 Take 1 capsule (200 14 capsule 0 MG capsuleIndications: mg) by mouth daily Osteolytic lesion due to for 14 days Do not metastasis (H) take within 6 hours of ibuprofen (MOTRIN, ADVIL) or ketorolac (TORADOL) if prescribed. diltiazem ER (DILT-XR) Take 240 mg by mouth 0 240 MG 24 hr ER beaded daily capsule escitalopram (LEXAPRO) 10 Take 10 mg by mouth 0 0 08/06/2021 MG tablet daily folic acid (FOLVITE) 400 Take 400 mcg by mouth 0 09/10/2021 MCG tablet daily guaiFENesin-codeine Take 10 mLs by mouth 0 2021 (ROBITUSSIN AC) 100-10 2 times daily as MG/5ML solution needed hydrOXYzine (ATARAX) 25 Take 1 tablet (25 mg) 30 tablet 0 0 01/07/2022 MG tabletIndications: by mouth every 6 Osteolytic lesion due to hours as needed for metastasis (H) itching or anxiety (with pain, moderate pain) ipratropium - albuterol Inhale 3 mLs into the 0 0 11/23/2021 0.5 mg/2.5 mg/3 mL lungs 2 times daily (DUONEB) 0.5-2.5 (3) as needed MG/3ML neb solution omeprazole (PRILOSEC) 40 Take 40 mg by mouth [address] capsule daily ondansetron (ZOFRAN) 8 MG Take 8 mg by mouth 2 0 09/10/2021 tablet times daily as needed oxyCODONE (ROXICODONE) 5 Take 1-2 tablets 20 tablet 0 01/07 MG tabletIndications: (5-10 mg) by mouth Osteolytic lesion due to every 6 hours as metastasis (H) needed for moderate to severe pain polyethylene glycol Take 17 g by mouth 7 packet 0 01/08/20 22 (MIRALAX) 17 g daily packetIndications: 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 tadalafil (CIALIS) 20 MG Take 20 mg by mouth 0 tablet daily as needed documented as of this encounter Progress Notes Anand Montgomery, OT - 01/08/2022 10:19 AM CDT 01/08/22928 Quick Adds Type of Visit Initial Occupational Therapy Evaluation Living Environment People in Home spouse Current Living Arrangements house Living Environment Comments Pt lives on 1 level; has tub shower, higher toilet Self-Care Usual Activity Tolerance good Current Activity Tolerance moderate Activity/Exercise/Self-Care Comment Ind w/ ADLs and IADLs at baseline General Information Onset of Illness/Injury or Date of Surgery 01/07/22 Referring Physician Wayne Humphries MD Additional Occupational Profile Info/Pertinent History of Current Problem hip nailing Existing Precautions/Restrictions weight bearing (TTWB) Left Lower Extremity (Weight-bearing Status) full weight-bearing (FWB) Right Lower Extremity (Weight-bearing Status) (S) touch down weight-bearing (TDWB) Sensory Sensory Quick Adds No deficits were identified Pain Assessment Patient Currently in Pain No Integumentary/Edema Integumentary/Edema no deficits were identifed Posture Posture not impaired Range of Motion Comprehensive General Range of Motion no range of motion deficits identified Strength Comprehensive (MMT) General Manual Muscle Testing (MMT) Assessment no strength deficits identified Muscle Tone Assessment Muscle Tone Quick Adds No deficits were identified Coordination Upper Extremity Coordination No deficits were identified Bed Mobility Bed Mobility No deficits identified Transfers Transfers toilet transfer;shower transfer Transfer Comments SBA for transfers Activities of Daily Living BADL Assessment/Intervention lower body dressing Lower Body Dressing Assessment/Training Boston Level (Lower Body Dressing) minimum assist (75% patient effort) Clinical Impression Criteria for Skilled Therapeutic Interventions Met (OT) Yes, treatment indicated OT Diagnosis decreased ADLs Influenced by the following impairments hip nailing OT Problem List-Impairments impacting ADL activity tolerance impaired;balance;mobility;post-surgicalprecautions Assessment of Occupational Performance 3-5 Performance Deficits Identified Performance Deficits LE dressing, all transfers Planned Therapy Interventions (OT) ADL retraining;transfer training Clinical Decision Making Complexity (OT) moderate complexity Risk & Benefits of therapy have been explained evaluation/treatment results reviewed;patient OT Discharge Planning OT Discharge Recommendation (DC Rec) (S) home with assist OT Rationale for DC Rec Pt tolerating therapy well - extensive Hx of surgeries and is familiar w/ therapy process. Pt requiring shoewr chair at this time and order has been put in. Pt will have spouse available to assist w/ ADLs at home Total Evaluation Time (Minutes) Total Evaluation Time (Minutes) 10 OT Goals Therapy Frequency (OT) One time eval and treatment OT Predicted Duration/Target Date for Goal Attainment 01/08/22 OT Goals Lower Body Dressing;Transfers;Toilet Transfer/Toileting OT: Lower Body Dressing Modified independent;using adaptive equipment;Goal Met;Completed;within precautions OT: Transfer Supervision/stand-by assist;with assistive device;within precautions;Goal Met;Completed (tub shower) OT: Toilet Transfer/Toileting Modified independent;toilet transfer;cleaning and garment management;within precautions;Goal Met;Completed Nikky Encinas PA-C - 01/08/2022 8:59 AM CDT Orthopedic Progress Note Assessment: 1 Day Post-Op S/P Procedure(s): PROPHYLACTIC INTRAMEDULLARY NAILING OF RIGHT HIP Plan: - Continue PT/OT. - Weightbearing status: TTWB for comfort to increase as comfort allows. - Anticoagulation: Xarelto x35 days in addition to SCDs, miguel stockings and early ambulation. - Discharge planning: Discharge to home today after IV antibiotics complete. Reengage radiation oncology in 7 to 10 days. Follow up with Dr. Humphries in 10 days. Subjective: Pain: Well controlled on Tylenol, atarax, oxycodone Nausea, Vomiting: No Chest pain: No Lightheadedness, Dizziness: No Neuro: Patient denies new onset numbness or paresthesias Patient doing well on POD #1. Ambulating with crutches, tolerating oral intake, voiding & pain is controlled with oral medications. Hgb 10.7 (12.0 pre-op). Objective: BP 119/73 (BP Location: Right arm) Pulse 70 Temp 97.4 ??F (36.3 ??C) (Oral) Resp 16 Ht 1.676m (5' 6) Wt 79 kg (174 lb 3.2 oz) SpO2 95% BMI 28.12 kg/m?? The patient is A&Ox3. Appears comfortable, sitting up at bedside. Sensation is intact & equal to bilateral lower extremities in the L2 through S1 dermatomes. Calves aresoft and non-tender bilaterally Dorsiflexion and plantar flexion is intact & equal bilaterally. Fires quad. Appropriate flexion and extension of the toes. Brisk capillary refill in the toes. Palpable Right dorsalis pedis pulse. Right hip & thigh dressings C/D/I with no surrounding erythema. Pertinent Labs Lab Results: personally reviewed. Lab Results Component Value Date INR 0.94 01/07/2022 Lab Results Component Value Date WBC 13.2 (H) 01/07/2022 HGB 10.7 (L) 01/08/2022 HCT 36.0 (L) 01/07/2022 MCV 90 01/07/2022 PLT 417 01/07/2022 No results found for: NA, CO2 Report completed by: Nikky Encinas PA-C [facility] Date: 01/08/2022 Time: 8:59 AM Michael Mazariegos MD - 01/08/2022 8:57 AM CDT [facility] MEDICINE PROGRESS NOTE Identification/Summary: 61-year-old male with a history of metastatic adenocarcinoma of the lung presents for prophylactic intramedullary nailing of the hip. Doing all right postoperative day #1. Metastatic adenocarcinoma the right lung Status post prophylactic intramedullary nailing Patient will follow up with his oncologist through [facility] Acute blood loss anemia Mild and asymptomatic without signs of ongoing losses Outpatient follow-up ?? Rheumatoid arthritis Clinically stable ?? Paroxysmal atrial fibrillation Not chronically anticoagulated Rate controlled ?? GERD Continue PPI ?? COPD No acute issues Home regimen ordered ?? Preoperative anemia Likely chronic disease Increases risk for need for transfusion Trend and transfuse if less than 7 or symptoms ?? Reactive thrombocytosis ?? Vitamin D deficiency ?? History of prostate cancer status post robotic prostatectomy ?? History of recent radiation related pericarditis # Overweight: Estimated body mass index is 28.12 kg/m?? as calculated from the following: Height as of this encounter: 1.676 m (5' 6). Weight as of this encounter: 79 kg (174 lb 3.2 oz). Diet: Discharge Instruction - Regular Diet Adult Regular Diet Adult DVT Prophylaxis: Defer to primary service Code Status: Full Code Anticipated possible discharge likely today Disposition Plan Expected Discharge Date: 01/08/2022 The patient's care was discussed with the Bedside Nurse, Jewelry Maker/Basic Combatant Swimmer and Patient. Michael [facility]os [facility] Phone: #[phone] Interval History/Subjective: Patient feeling good. Eating. Urinating. Ambulating. Pain is controlled. Hopes to go home today. From a medical standpoint he can go whenever he is cleared to go by surgery. Physical Exam/Objective: Temp: [97 ??F (36.1 ??C)-99.6 ??F (37.6 ??C)] 97.4 ??F (36.3 ??C) Pulse: [55-78] 70 Resp: [13-27] 16 BP: (109-138)/(61-85) 119/73 SpO2: [91 %-100 %] 95 % Body mass index is 28.12 kg/m??. GENERAL: Alert, appears comfortable, in no acute distress, appears stated age HEAD: Normocephalic, without obvious abnormality, atraumatic EYES: PERRL, conjunctiva/corneas clear, no scleral icterus, EOM's intact NECK: Supple, symmetrical, trachea midline BACK: Symmetric, no curvature, ROM normal LUNGS: Clear to auscultation bilaterally, no rales, rhonchi, or wheezing, symmetric chest rise on inhalation, respirations unlabored CHEST WALL: No tenderness or deformity HEART: Regular rate and rhythm, S1 and S2 normal, no murmur, rub, or gallop ABDOMEN: Soft, non-tender, bowel sounds active all four quadrants, no masses, no organomegaly, no rebound or guarding EXTREMITIES: Extremities normal, atraumatic, no cyanosis or edema SKIN: Dry to touch, no exanthems in the visualized areas NEURO: Alert, oriented x3, moves all four extremities freely PSYCH: Cooperative, behavior is appropriate Data reviewed today: I personally reviewed all new medications, labs, imaging/diagnostics reports over the past 24 hours. Pertinent findings include: Imaging: Recent Results (from the past 24 hour(s)) POC US Guidance Needle Placement Narrative Ultrasound was performed as guidance to an anesthesia procedure. Click PACS images hyperlink below to view any stored images. For specific procedure details, view procedure note authored by anesthesia. XR Surgery MARK Fluoro G/T 5 Min Narrative This exam was marked as non-reportable because it will not be read by a radiologist or a [facility] non-radiologist provider. Labs: Most Recent 3 CBC's:Recent Labs Lab Test 01/08/22 0536 01/07/22 1213 WBC -- 13.2* HGB 10.7* 12.0* MCV -- 90 PLT -- 417 Most Recent 3 BMP's:Recent Labs Lab Test 01/07/22 1213 POTASSIUM 4.3 CR 0.69* Most Recent 2 LFT's:No lab results found. Most Recent 3 INR's:Recent Labs Lab Test 01/07/22 1213 INR 0.94 Medications: Personally Reviewed. Medications ??? lactated ringers Stopped (01/07/222049) ??? diltiazem ER 240 mg Oral Daily ??? escitalopram 10 mg Oral Daily ??? folic acid 400 mcg Oral Daily ??? ketorolac 15 mg Intravenous Q6H ??? pantoprazole 40 mg Oral QAM AC ??? polyethylene glycol 17 g Oral Daily ??? rivaroxaban ANTICOAGULANT 10 mg Oral Daily ??? senna-docusate 1 tablet Oral BID ??? sodium chloride (PF) 3 mL Intracatheter Q8H Tasha Mensah, PT - 01/08/2022 8:52 AM CDT 01/08/22 0800 Quick Adds Type of Visit Initial PT Evaluation Living Environment People in Home spouse Current Living Arrangements house Home Accessibility stairs to enter home Number of Stairs, Main Entrance 3 Stair Railings, Main Entrance railings safe and in good condition Transportation Anticipated family or friend will provide Living Environment Comments spouse works during day; pt lives on one level Self-Care Equipment Currently Used at Home walker, rolling;crutches;wheelchair, manual Activity/Exercise/Self-Care Comment independent ADL's/IADL's General Information Onset of Illness/Injury or Date of Surgery 01/07/[address] Humphries Patient/Family Therapy Goals Statement (PT) move again Pertinent History of Current Problem (include personal factors and/or comorbidities that impact the POC) met. adenocarcinoma of R lung with R proximal femur lesion s/p prophylactic IM nailing R hip 01/07; PMH of RA, GERD, COPD Existing Precautions/Restrictions weight bearing Weight-Bearing Status - RLE toe touch weight-bearing Cognition Affect/Mental Status (Cognition) WFL Orientation Status (Cognition) oriented x 4 Follows Commands (Cognition) WFL Range of Motion (ROM) ROM Comment decreased rom/strength R hip s/p surgery Strength (Manual Muscle Testing) Strength Comments decreased rom/strength R hip s/p surgery Transfers Transfers sit-stand transfer Sit-Stand Transfer Sit-Stand Boston (Transfers) supervision;verbal cues Gait/Stairs (Locomotion) Boston Level (Gait) supervision;verbal cues;nonverbal cues (demo/gesture) Assistive Device (Gait) walker, front-wheeled Distance in Feet (Required for LE Total Joints) 100 Pattern (Gait) 3-point Deviations/Abnormal Patterns (Gait) gait speed decreased Maintains Weight-bearing Status (Gait) able to maintain;nonverbal cues (demo/gesture) to maintain;verbal cues to maintain Negotiation (Stairs) stairs independence;stairs assistive device;handrail location;number of steps;ascending technique;descending technique Boston Level (Stairs) supervision;verbal cues;nonverbal cues (demo/gesture) Handrail Location (Stairs) both sides Number of Steps (Stairs) 4 Ascending Technique (Stairs) [id number] Descending Technique (Stairs) [id number] Clinical Impression Criteria for Skilled Therapeutic Intervention Yes, treatment indicated PT Diagnosis (PT) impaired functional mobility Influenced by the following impairments decreased rom/strength/balance Functional limitations due to impairments transfers, gait, stairs Clinical Presentation (PT Evaluation Complexity) Stable/Uncomplicated Clinical Presentation Rationale pt presents as medically diagnosed Clinical Decision Making (Complexity) low complexity Planned Therapy Interventions (PT) gait training;home exercise program;stretching;stair training;strengthening;transfer training Anticipated Equipment Needs at Discharge (PT) crutches, axillary Risk & Benefits of therapy have been explained evaluation/treatment results reviewed;patient PT Discharge Planning PT Discharge Recommendation (DC Rec) home with assist PT Rationale for DC Rec spouse assist with IADL's as per prior level of function Plan of Care Review Plan of Care Reviewed With patient Total Evaluation Time Total Evaluation Time (Minutes) 10 Physical Therapy Goals PT Frequency One time eval and treatment only PT Predicted Duration/Target Date for Goal Attainment 01/08/22 PT Goals Transfers;Gait;Stairs PT: Transfers Modified independent;Assistive device;Sit to/from stand PT: Gait Modified independent;150 feet;Assistive device PT: Stairs Modified independent;3 stairs;Rail on left;Assistive device documented in this encounter H&P Notes Wayne Humphries MD - 01/07/2022 1:25 PM CDT I have reviewed the surgical (or preoperative) H&P that is linked to this encounter, and examined the patient. There are no significant changes: A 61-year-old male with adenocarcinoma of the lung seen recently for increasingly severe right thigh pain, with a large metastasis to the right proximal femur. Plan prophylactic IM leilani placement to preface radiation treatment. Anatomy, pathology options and plan reviewed. Risks reviewed. Questions addressed. Clinical Conditions Present on Arrival: Clinically Significant Risk Factors Present on Admission # Overweight: Estimated body mass index is 27.44 kg/m?? as calculated from the following: Height as of this encounter: 1.676 m (5' 6). Weight as of this encounter: 77.1 kg (170 lb). Source Note - Jose Angel, Provider - 01/05/2022 3:02 PM CDT documented in this encounter Consult Notes Michael Mazariegos MD - 01/07/2022 5:42 PM CDTAssociated Order(s): HOSPITALIST IP CONSULT [facility] MEDICINE CONSULT NOTE Physician requesting consult: Wayne Humphries MD Reason for consult: Postoperative medical management of medical co-morbidities as below Assessment and Plan Hector Norris is a 61 year old old male with a history of metastatic adenocarcinoma of the right lung presents for prophylactic intramedullary nailing of the right hip due to metastases. [facility] service was asked to evaluate patient for postoperative medical management as follows below. Please resume the home medications as reconciled and further noted below with ordered hold parameters. Vital signs have been stable post-operatively including hemodynamically stable blood pressure and heart rate. Thank you for this consult; we will continue to follow this patient until discharge. Metastatic adenocarcinoma the right lung Status post prophylactic intramedullary nailing Patient will follow up with his oncologist through [facility] Rheumatoid arthritis Clinically stable Paroxysmal atrial fibrillation Not chronically anticoagulated Rate controlled GERD Continue PPI COPD No acute issues Home regimen ordered Preoperative anemia Likely chronic disease Increases risk for need for transfusion Trend and transfuse if less than 7 or symptoms Reactive thrombocytosis Vitamin D deficiency History of prostate cancer status post robotic prostatectomy History of recent radiation related pericarditis Procedure(s): PROPHYLACTIC INTRAMEDULLARY NAILING OF RIGHT HIP Post-operative Day: Day of Surgery Code status:Full Code Estimated Blood Loss: * No values recorded between 01/07/2022 2:33 PM and 01/07/2022 3:57 PM * Hospital Problem List No problem-specific Assessment & Plan notes found for this encounter. 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 -Home medication reconciliation has been reviewed. Medications have been ordered as noted from the home list and changes are documented above HISTORY Hector Norris is a 61 year old old male with a history of tobacco use with quit date in 2021 presents with metastatic adenocarcinoma of the right lung with bony lesion causing pain and impending fracture of the right hip. Patient presents for a nailing. Please see the operative note for details of the surgery. Please H&P which was reviewed by me for preoperative course. Role of hospital medicine discussed and questions answered. Currently the patient is doing well. He is having minimal pain. He is having some snacks. He has had chemo and radiation for lung cancer. Is reportedly gotten into the lymph nodes now spread to the bone. He is planning on following up with his oncologist to c onsider further treatment. He was having hip pain and there was concern about impending fracture/pathologic fracture. He has a history of prostate cancer status post prostatectomy has not had any problems with urinary retention. He recently had pericarditis which she thinks was related to radiation therapy which has improved. He does have reflux disease and a history of intermittent atrial fibrillation. He is rate controlled on medication. Not anticoagulated. Past Medical History Patient Active Problem List Diagnosis Date Noted ??? Osteolytic lesion due to metastasis (H) 01/07/2022 Priority: Medium Surgical History He has no past surgical history on file. History reviewed. No pertinent surgical history. Family History Reviewed, and father had CAD Social History Reviewed, and he reports that he has quit smoking. He has never used smokeless tobacco. He reports current alcohol use. He reports that he does not use drugs. Social History Tobacco Use ??? Smoking status: Former Smoker ??? Smokeless tobacco: Never Used Substance Use Topics ??? Alcohol use: Yes Allergies No Known Allergies Prior to Admission Medications Medications Prior to Admission Medication Sig Dispense Refill Last Dose ??? albuterol (PROAIR HFA/PROVENTIL HFA/VENTOLIN HFA) 108 (90 Base) MCG/ACT inhaler Inhale 2 puffs into the lungs 4 times daily as needed Past Week at does not have with ??? rpwssso-hqurrsgehhcru-cqzzgdgo (EXCEDRIN MIGRAINE) 250-250-65 MG tablet Take 1 tablet by mouth 2times daily as needed LD 12/07 Past Month at Unknown time ??? diltiazem ER (DILT-XR) 240 MG 24 hr ER beaded capsule Take 240 mg by mouth daily 01/07/2022 at am ??? escitalopram (LEXAPRO) 10 MG tablet Take 10 mg by mouth daily 01/07/2022 at am ??? folic acid (FOLVITE) 400 MCG tablet Take 400 mcg by mouth daily Past Week at Unknown time ??? guaiFENesin-codeine (ROBITUSSIN AC) 100-10 MG/5ML solution Take 10 mLs by mouth 2 times daily asneeded Unknown at Unknown time ??? ibuprofen (ADVIL/MOTRIN) 800 MG tablet Take 800 mg by mouth 3 times daily as needed 01/06/2022 [id number] ??? ipratropium - albuterol 0.5 mg/2.5 mg/3 mL (DUONEB) 0.5-2.5 (3) MG/3ML neb solution Inhale 3 mLsinto the lungs 2 times daily as needed Past Week at Unknown time ??? omeprazole (PRILOSEC) [address] capsule Take 40 mg by mouth daily 01/07/2022 at am ??? ondansetron (ZOFRAN) 8 MG tablet Take 8 mg by mouth 2 times daily as needed 01/06/2022 at Unknowntime ??? oxyCODONE (ROXICODONE) 5 MG tablet Take 5 mg by mouth every 4 hours as needed for mild pain 01/06/2022 at 1400 ??? tadalafil (CIALIS) 20 MG tablet Take 20 mg by mouth daily as needed Unknown at Unknown time Review of Systems A 12 point comprehensive review of systems was negative except as noted above. OBJECTIVE Physical Exam Temp: [97.9 ??F (36.6 ??C)-99.6 ??F (37.6 ??C)] 97.9 ??F (36.6 ??C) Pulse: [55-78] 65 Resp: [13-27] 18 BP: (109-135)/(61-85) 131/78 SpO2: [91 %-100 %] 93 % Body mass index is 28.12 kg/m??. GENERAL: Alert, appears comfortable, in no acute distress, appears stated age HEAD: Normocephalic, without obvious abnormality, atraumatic NOSE: Nares normal, septum midline, mucosa normal, no drainage NECK: Supple, symmetrical, trachea midline BACK: Symmetric, no curvature, ROM normal LUNGS: Clear to auscultation bilaterally, no rales, rhonchi, or wheezing, symmetric chest rise on inhalation, respirations unlabored CHEST WALL: No tenderness or deformity HEART: Regular rate and rhythm, S1 and S2 normal, no murmur, rub, or gallop ABDOMEN: Soft, non-tender, bowel sounds active all four quadrants, no masses, no organomegaly, no rebound or guarding EXTREMITIES: Extremities normal, atraumatic, no cyanosis or edema SKIN: Dry to touch, no exanthems in the visualized areas NEURO: Alert, oriented x 4, moves all four extremities freely/spontaneously PSYCH: Cooperative, behavior is appropriate Cardiographics Reviewed Personally By Myself EKG Results: personally reviewed. Imaging Reviewed Personally By Myself Radiology Results: Recent Results (from the past 24 hour(s)) POC US Guidance Needle Placement Narrative Ultrasound was performed as guidance to an anesthesia procedure. Click PACS images hyperlink below to view any stored images. For specific procedure details, view procedure note authored by anesthesia. XR Surgery MARK Fluoro G/T 5 Min Narrative This exam was marked as non-reportable because it will not be read by a radiologist or a [place] non-radiologist provider. Labs Reviewed Personally By Myself Results for orders placed or performed during the hospital encounter of 01/07/22 (from the past 24 hour(s)) POC US Guidance Needle Placement Narrative Ultrasound was performed as guidance to an anesthesia procedure. Click PACS images hyperlink below to view any stored images. For specific procedure details, view procedure note authored by anesthesia. CBC with platelets Result Value Ref Range WBC Count 13.2 (H) 4.0 - 11.0 10e3/uL RBC Count 4.02 (L) 4.40 - 5.90 10e6/uL Hemoglobin 12.0 (L) 13.3 - 17.7 g/dL Hematocrit 36.0 (L) 40.0 - 53.0 % MCV 90 78 - 100 fL MCH 29.9 26.5 - 33.0 pg MCHC 33.3 31.5 - 36.5 g/dL RDW 15.2 (H) 10.0 - 15.0 % Platelet Count 417 150 - 450 10e3/uL Potassium Result Value Ref Range Potassium 4.3 3.5 - 5.0 mmol/L Creatinine Result Value Ref Range Creatinine 0.69 (L) 0.70 - 1.30 mg/dL GFR Estimate >90 >60 mL/min/1.73m2 INR Result Value Ref Range INR 0.94 0.85 - 1.15 CRP inflammation Result Value Ref Range CRP 1.4 (H) 0.0 - <0.8 mg/dL Erythrocyte sedimentation rate auto Result Value Ref Range Erythrocyte Sedimentation Rate 25 (H) 0 - 15 mm/hr ABO/Rh type and screen Narrative The following orders were created for panel order ABO/Rh type and screen. Procedure Abnormality Status --------- ------ Adult Type and Screen[[id number]] Final result Please view results for these tests on the individual orders. Adult Type and Screen Result Value Ref Range ABO/RH(D) O POS Antibody Screen Negative Negative SPECIMEN EXPIRATION DATE [id number] XR Surgery MARK Fluoro G/T 5 Min Narrative This exam was marked as non-reportable because it will not be read by a radiologist or a [place] non-radiologist provider. Preoperative Labs Reviewed Personally By Myself Sodium 142 potassium 4.3 chloride 109 bicarb 23 BUN 25 creatinine 1.14 glucose 109 white count 10.5 hemoglobin 11.5 MCV 93 platelets 447 sed rate 37 Thank you for this consultation. Appreciate the opportunity to participate in the care of Hector Norris, please feel free to contact us for any questions or concerns. Michael Mazariegos MD [facility] Phone: #[phone] documented in this encounter Miscellaneous Notes Plan of Care - Fatou Trujillo RN - 01/08/2022 12:29 PM CDT Patient A/O x 4, pleasant, cooperative. Complains of pain Rt hip controlled with FERDINAND/ PRN pain medication. Vitally stable on room air. Assist of 1 with a gait belt and walker. Tolerating regular diet. WBAT. Discharge information reviewed with patient to his satisfaction. All questions answered. Patient discharge in stable condition via a private vehicle with . Plan of Care - Anand Montgomery OT - 01/08/2022 10:23 AM CDT Occupational Therapy Discharge Summary Reason for therapy discharge: All goals and outcomes met, no further needs identified. Progress towards therapy goal(s). See goals on Care Plan in [facility] electronic health record for goal details. Goals met Therapy recommendation(s): No further therapy is recommended. Plan of Care - Tasha Mensah, PT - 01/08/2022 8:57 AM CDT Physical Therapy Discharge Summary Reason for therapy discharge: Goals met. Progress towards therapy goal(s). See goals on Care Plan in [facility] electronic health record for goal details. Goals met Therapy recommendation(s): Continue home exercise program. 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 VSS on RA. CMS intact. Dressing c/d/i. Voiding adequately. Pain managed with PRN oxycodone 10 mg, ice applied. IV SL. Up in chair. Discharge to home pending. Plan of Care - Lamar Drake RN - 01/07/2022 6:30 PM CDT Pt eating, drinking, due to void and has audible bowel sounds. 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 Goal Outcome Evaluation: Provider Notification - Wendy Gregg RN - 01/07/2022 1:24 PM CDT Notified Jason JIM, regarding todays labs, WBC elevated from 2 days ago. Will proceed with OR today. Pharmacy-Admission Medication History - Autumn Holm [facility] - 01/07/2022 12:29 PM CDT Pharmacy Note - Admission Medication History Pertinent Provider Information: n/a Prior To Admission ([employer]) med list completed and updated in EMR. [employer] Med List Medication Sig Last Dose ??? albuterol (PROAIR HFA/PROVENTIL HFA/VENTOLIN HFA) 108 (90 Base) MCG/ACT inhaler Inhale 2 puffs into the lungs 4 times daily as needed Past Week at does not have with ??? dtqurhj-cufeexsgbunub-bwweehqc (EXCEDRIN MIGRAINE) 250-250-65 MG tablet Take 1 tablet by mouth 2times daily as needed LD 12/07 Past Month at Unknown time ??? diltiazem ER (DILT-XR) 240 MG 24 hr ER beaded capsule Take 240 mg by mouth daily 01/07/2022 at am ??? escitalopram (LEXAPRO) 10 MG tablet Take 10 mg by mouth daily 01/07/2022 at am ??? folic acid (FOLVITE) 400 MCG tablet Take 400 mcg by mouth daily Past Week at Unknown time ??? guaiFENesin-codeine (ROBITUSSIN AC) 100-10 MG/5ML solution Take 10 mLs by mouth 2 times daily asneeded Unknown at Unknown time ??? ibuprofen (ADVIL/MOTRIN) 800 MG tablet Take 800 mg by mouth 3 times daily as needed 01/06/2022 [id number] ??? ipratropium - albuterol 0.5 mg/2.5 mg/3 mL (DUONEB) 0.5-2.5 (3) MG/3ML neb solution Inhale 3 mLsinto the lungs 2 times daily as needed Past Week at Unknown time ??? omeprazole (PRILOSEC) [address] capsule Take 40 mg by mouth daily 01/07/2022 at am ??? ondansetron (ZOFRAN) 8 MG tablet Take 8 mg by mouth 2 times daily as needed 01/06/2022 at Unknowntime ??? oxyCODONE (ROXICODONE) 5 MG tablet Take 5 mg by mouth every 4 hours as needed for mild pain 01/06/2022 at 1400 ??? tadalafil (CIALIS) 20 MG tablet Take 20 mg by mouth daily as needed Unknown at Unknown time Information source(s): Patient Method of interview communication: in-person Patient was asked about OTC/herbal products specifically. [employer] med list reflects this. Based on the pharmacist's assessment, the [employer] med list information appears reliable Allergies were reviewed, assessed, and updated with the patient. Patient did not bring any medications to the hospital and can't retrieve from home. No multi-dose medications are available for use during hospital stay. Thank you for the opportunity to participate in the care of this patient. Autumn Holm, PharmD, BCPS 01/07/2022 12:29 PM Op Note - Wayne Humphries MD - 01/07/2022 11:58 AM CDT Operative Note Name: Hector Norris PCP: Tin Hernandez Procedure Date: 01/07/2022 Procedure(s): PROPHYLACTIC INTRAMEDULLARY NAILING OF RIGHT HIP Pre-Procedure Diagnosis: Lung cancer metastatic to bone (H) [C34.90, C79.51] right femur Impending fracture subtrochanteric right femur secondary to metastatic lesion Right thigh pain Post-Procedure Diagnosis: Same Surgeon(s): Wayne Humphries MD Assist: Jason guzman PA-C PA-C assist was required for this operation due to the complexity of the procedure, for proper positioning of the limb during the operation, and for patient safety. Anesthesia Type: Regional Antibiotics: Ancef 2 g IVPB on induction Condition on discharge from OR: stable Indications: Patient is a 61-year-old male with adenocarcinoma of the lung currently under chemotherapeutic treatment presenting with 3-4-week history of increasing right thigh pain. Seen in the office last week with increasing thigh discomfort and an antalgic gait. Physical examination unremarkable. X-ray revealsa large permeative lesion in the subtrochanteric area of the proximal femur. Surgical indications include metastatic lesion with impending fracture requiring surgical stabilization. Findings: Anatomic maintenance of anatomy without fracture. Operative Report: Upon informed consent having reviewed the procedure along with attendant risk of complication informed decision made to proceed. All protocols and regimens were followed. Patient underwent a fascia iliac a block in preop per [facility]. He was appropriately premedicated. Consent obtained risks reviewed. Labswere checked. He was premedicated brought to the operative room undergoing anesthetic induction. Transferred to the Winfield table. Winfield boot was applied to the right lower extremity and the lower extremity is attached to the spar. The left lower extremity was flexed and abductedto accommodate fluoroscopic C arm. This was checked. No traction was applied. Slight adduction of the lower extremity with appropriate positioning of his torso and upper body. The lower extremity was then 8-minute Betadine scrub, alcohol washed and ChloraPrep in its entirety. We paused for patient identification, limb and procedure confirmation. A 2 cm incision was made proximal to the greater trochanter dissection carried down to the underlying fascia which was incised. I then dissected sharply to the trochanteric tip and introduced a long Steinmann pin into the trochanteric tip to the level of the lesser trochanter. Checked fluoroscopicallyin the frontal and sagittal plane. This was overdrilled 17 mm per routine. A long guide leilani was theninserted to the superior pole of the patella and measured at the greater trochanter, 380 mm. Reaming commenced at 8.5 mm progressing in 1 mm increments to 13.5 mm. I then reamed to 14mm with very little chatter. A 12 mm x 380mm Synthes recon nail was then chosen and attached to the introduction handle. I checked the alignment of the interlocking proximal screw holes with the cannula was inserted through the handle. Then, the nail was introduced over the guide leilani and impacted until the level of the superior pole of the patella distally. This was checked frequently both in the frontal and sagittal planes. Theproximal transverse screw hole was approached by a percutaneous cannula and drilled measured and filled with an appropriately sized interlocking proximal screw. Likewise fashion the very proximal trochanteric drill hole was predrilled measured and filled with the appropriately sized interlocking screwwith good fixation proximally. The spar was unlocked and widely abducted to accommodate the fluoroscopic C arm at 90 degrees. A 2 cm incision was made distally at the site of the interlocking transverse screws and dissection carrieddown to the fascia which was incised sharply. Cortex was exposed. With the C arm positioned in the sagittal plane, using the perfect [place] technique was used to drill the static transverse screw hole. This was measured and filled with the appropriately sized interlocking screw. Then, in likewise fashion using the C-arm in the sagittal plane, using the perfect [place] technique, the dynamic screw slot was predrilled measured and filled with the appropriately sized interlocking screw. Both screws obtained excellent purchase interlocking screw distally. The construct was checked frequently with the fluoroscopic C arm both in the frontal and sagittal planes. All wounds were thoroughly irrigated closed in layers. Soft dressings were applied. Counts were correct. EBL less than 50 cc. Patient tolerated the procedure well was brought to the PAR in stable condition. Postoperative plan: 1.toe-touch weightbearing for comfort to increase as comfort allows. 2.antibiotic coverage x24 hours. 3.VTE prophylaxis with formal anticoagulation given his concurrent malignancy 4.reengage radiation oncology in 7 to 10 days. 5.postoperative written instructions provided to the patient's including a personal contact information. 6.return to clinic within 10 days. Counts were correct. Bleeding was largely from reamed cancellous surfaces of the acetabulum as well as from the medullary canal of the femur. The patient tolerated the procedure well [facility] Estimated Blood Loss: Less than 50 cc Specimens: No specimen Drains: No drain Complications: None Wayne Humphries MD Date: 01/07/2022 Time: 3:37 PM Implant Name Type Inv. Item Serial No. Pump Installer Lot No. LRB No. Used Action SYNTHES TITANIUM NAIL RT 12MM X 380MM [employer] [id number] Right 1 Implanted SYNTHES LOCKING SCREW IM NAIL 5 X 38MM SYNTHES [id number] Right 1 Implanted SYNTHES IM LOCKING SCREW 5 X 72MM SYNTHES [id number] Right 1 Implanted SYNTHES LOCKING SCREW IM NAIL 5 X 40MM SYNTHES [id number] Right 1 Implanted SYNTHES LOCKING SCREW IM NAIL 5 X 46MM SYNTHES [id number] Right 1 Implanted Provider Notification - Blaine Castillo APRN [facility] - 01/06/2022 12:36 PM CDT I am evaluating this patient for upcoming Prophylactic Intramedullary Nailing of Right Hip with Dr. Humphries at [facility] on 01/07/22: - Notified by preop RNEllen, that patient cleared for surgery by PCP on H&P but did have some abnormal recent labs: Hemoglobin 11.5, Platelets 447, Sed Rate 37, CRP 1.75. Sent message to Dr. Humphries and his PA's to make sure they are ok proceeding with these labs. Waiting for response. - Update 01/06/22 at 1:52 pm: Dr. Humphries responded and is ok proceeding with the labs noted above. They have already ordered blood type & screen for this patient in preop tomorrow. OK to proceed. Blaine Castillo APRN, RAJNI Advanced Practice Nurse Navigator- Orthopedics [facility] Office Direct documented in this encounter Plan of Treatment Not on filedocumented as of this encounter Procedures Procedure Name Priority Date/Time Associated Comments Diagnosis HEMOGLOBIN Routine 01/08/2022 5:36 AM Results f or this CDT procedure are i n the results section. XR SURGERY MARK Routine 01/07/2022 3:53 PM Result s for this FLUORO GREATER THAN CDT procedur e are in 5 MIN the results section. INTERNAL FIXATION, 01/07/2022 2:00 PM Lung cancer FRACTURE, CDT metastatic to bone TROCHANTERIC, HIP, (H) USING PINS OR RODS Lesion of femur Case Notes SY[employer]ES RECON NAIL LOANERS.N blayne H. [phone] John Wells [phone] Ernestina Goodson [phone] Special Needs C-Arm - Removed C-Arm (confl ict) to get scheduled - ok to do per Jeannette 01/01/22 Pranav GOLDBERG Table TYPE AND SCREEN, ADULT STAT 01/07/2022 12:13 [...] are i n the results section . ABO/RH TYPE AND SCREEN STAT 01/07/2022 12:13 [...] - HIM SCAN 01/05/2022 1:43 PM CDT documented in this encounter Results (ABNORMAL) Hemoglobin (01/08/2022 5:36 AM CDT) athologist Signature Hemoglobin 10.7 (L) 13.3 - 01/08/2022 [facility] 17.7 g/dL 5:42 AM CDT Specimen Anatomical Collection Method / Collection Time Recei ry Time (Source) Location / Volume Laterality Blood STRUCTURE OF RIGHT Venipuncture / 01/08/2022 5:36 12/24 5:39 UPPER LIMB / Unknown AM CDT AM CDT Unknown Jason Guzman PA-C LAB - BLOOD ORDERABLES Performing Organization Address City/[facility]/ZIP Code Phon e Number [facility] [place] [address] [place], [place] [address]joe Hassan XR Surgery MARK Fluoro G/T 5 Min (01/07/2022 3:53 PM CDT) Specimen (Source) Anatomical Location Collection Method / Collectio n Time Received Time / Laterality Volume Narrative [facility] - 01/07/2022 3:56 PM CDT This exam was marked as non-reportable because it will not be read by a radiologist or a [place] non-radiologis t provider. Wayne Humphries MD IMG DIAGNOSTIC IMAGING ORDER DUNG Performing Organization Address City/[facility]/ZIP Code Phon e Number [facility] Adult Type and Screen (01/07/2022 12:13 PM CDT) [facility] gist Method Time Signature ABO/RH(D) O POS 01/07/2022 [facility] B[facility] 12:15 PM BANK CDT Antibody Negative Negative 01/07/2022 [facility] Screen 12:15 PM BANK CDT SPECIMEN [id number] 01/07/2022 [facility] EXPIRATION 12:15 PM BANK DATE CDT Specimen Anatomical Collection Method / Collection Time Recei ry Time (Source) Location / Volume Laterality Blood BLOOD SPECIMEN / Venipuncture / 01/07/2022 12:13 01/07 Unknown Unknown PM CDT 12:22 PM CDT Jason Guzman PA-C LAB - BLOOD BANK TEST ORDER Performing Organization Address City/[facility]/ZIP Code Phon e Number [facility] [address] [place] [address] (ABNORMAL) Erythrocyte sedimentation rate auto (01/07/2022 12:13 PM CDT) [facility] Signature Erythrocyte 25 (H) 0 - 15 01/07/2022 [facility] Sedimentation Rate mm/hr 1:07 PM CDT Specimen Anatomical Collection Method / Collection Time Recei ry Time (Source) Location / Volume Laterality Blood BLOOD SPECIMEN / Venipuncture / 01/07/2022 12:13 01/07 Unknown Unknown PM CDT 12:22 PM CDT Jason Guzman PA-C LAB - BLOOD ORDERABLES Performing Organization Address City/[facility]/ZIP Code Phon e Number [facility] [place] [address] (ABNORMAL) CRP inflammation (01/07/2022 12:13 PM CDT) P athologist Signature CRP 1.4 (H) 0.0 - <0.8 01/07/2022 [facility] mg/dL 12:38 PM CDT Specimen Anatomical Collection Method / Collection Time Recei ry Time (Source) Location / Volume Laterality Blood BLOOD SPECIMEN / Venipuncture / 01/07/2022 12:13 01/07 Unknown Unknown PM CDT 12:22 PM CDT Jason Guzman PA-C LAB - BLOOD ORDERABLES Performing Organization Address City/[facility]/ZIP Code Phon e Number [facility] [place] [address] INR (01/07/2022 12:13 PM CDT) P athologist Signature INR 0.94 0.85 - 1.15 01/07/2022 [facility] 12:36 PM CDT Specimen Anatomical Collection Method / Collection Time Recei ry Time (Source) Location / Volume Laterality Blood BLOOD SPECIMEN / Venipuncture / 01/07/2022 12:13 01/07 Unknown Unknown PM CDT 12:22 PM CDT Jason Guzman PA-C LAB - BLOOD ORDERABLES Performing Organization Address [facility]/ZIP Code Phon e Number [place] [address] (ABNORMAL) Creatinine (01/07/2022 12:13 PM CDT) athologist Signature Creatinine 0.69 (L) 0.70 - 01/07/2022 [facility] 1.30 mg/dL 12:38 PM CDT GFR Estimate >90 >60 01/07/2022 [facility] mL/min/1.7 12:38 PM CDT 3m2 Comment: Effective 2021 eGF Rcr in adults is calculated using the 2020 CKD-EPI creatinine equation which includ es age and gender (Megan et al., NEJM, DOI: 10.1056/WGARyb9079004) Specimen Anatomical Collection Method / Collection Time Recei ry Time (Source) Location / Volume Laterality Blood BLOOD SPECIMEN / Venipuncture / 01/07/2022 12:13 01/07 Unknown Unknown PM CDT 12:22 PM CDT Jason Guzman PA-C LAB - BLOOD ORDERABLES Performing Organization Address City/[facility] [place] [address] Potassium (01/07/2022 12:13 PM CDT) athologist Signature Potassium 4.3 3.5 - 5.0 01/07/2022 [facility] mmol/L 12:38 PM CDT Specimen Anatomical Collection Method / Collection Time Recei ry Time (Source) Location / Volume Laterality Blood BLOOD SPECIMEN / Venipuncture / 01/07/2022 12:13 01/07 Unknown Unknown PM CDT 12:22 PM CDT Jason Guzman PA-C LAB - BLOOD ORDERABLES Performing Organization Address City/[facility]/ZIP Code Phon e Number [facility] [place] [address] (ABNORMAL) CBC with platelets (01/07/2022 12:13 PM CDT) [facility] gist Method Time Signature WBC Count 13.2 (H) 4.0 - 11.0 01/07/2022 [facility] 10e3/uL 12:26 PM CDT RBC Count 4.02 (L) 4.40 - 01/07/2022 [facility] 5.90 12:26 PM CDT 10e6/uL Hemoglobin 12.0 (L) 13.3 - 01/07/2022 [facility] 17.7 g/dL 12:26 PM CDT Hematocrit 36.0 (L) 40.0 - 01/07/2022 [facility] 53.0 % 12:26 PM CDT MCV 90 78 - 100 01/07/2022 [facility] fL 12:26 PM CDT MCH 29.9 26.5 - 01/07/2022 [facility] 33.0 pg 12:26 PM CDT MCHC 33.3 31.5 - 01/07/2022 [facility] 36.5 g/dL 12:26 PM CDT RDW 15.2 (H) 10.0 - 01/07/2022 [facility] 15.0 % 12:26 PM CDT Platelet Count 417 150 - 450 01/07/2022 [facility] 10e3/uL 12:26 PM CDT Specimen Anatomical Collection Method / Collection Time Recei ry Time (Source) Location / Volume Laterality Blood BLOOD SPECIMEN / Venipuncture / 01/07/2022 12:13 01/07 Unknown Unknown PM CDT 12:22 PM CDT Jason Guzman PA-C LAB - BLOOD ORDERABLES Performing Organization Address City/State/ZIP Code Phon e Number [facility] [place] [address] POC US Guidance Needle Placement (01/07/2022 12:03 [...] no t available. 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 Maximum acetaminophen dose from all sources = 75 mg/kg/day not to exceed 4 grams/day. alum & mag hydroxide-simethicone (MAALOX ) suspension 30 mL 30 mL, Oral, EVERY 4 HOURS PRN, indigest ion, Starting on Komal 01/07/22 at 1701, Shake well. benzocaine-menthol (CEPACOL) 15-3.6 MG l ozenge 1 lozenge 1 lozenge, Buccal, EVERY 1 HOUR PRN, moderate pain, so re throat without fever, Starting on Komal 01/07/22 at 1701 bisacodyl (DULCOLAX) suppository 10 mg 10 mg, Rectal, DAILY PRN, constipation, Use if Magnesi um hydroxide (MILK of MAGNESIA) not effective after 24 hours. May discontinu e if patient having bowel movement., Starting on Tue01/07/22 at 1701, Hold for l oose stools. diltiazem ER (DILT-XR) 24 hr capsule 240 mg Given 01/08/2022 9:00 AM CDT 240 mg 240 mg, Oral, DAILY, First dose on Tue01/08/22 at 0900, DO NOT CRUSH. Hold for sbp < 120 escitalopram (LEXAPRO) tablet 10 mg Given 01/08/2022 9:00 AM CDT 10 mg 10 mg, Oral, DAILY, First dose on Tue01/08/22 at 0900 folic acid (FOLVITE) tablet 400 mcg Given 01/08/2022 9:00 AM CDT 400 mcg 400 mcg, Oral, DAILY, First dose on Tue01/07/22 at 1730 HYDROmorphone (DILAUDID) injection 0.2 m g 0.2 mg, Intravenous, EVERY 2 HOURS PRN, other, moderate pain (pain rating 4-6) IF patient unable to take oral pain medication or pain no t controlled with oral analgesics, Starting on Tue01/07/22 at 1 701, Hold IV PRN opioid dose for analgesic side effects. Notify provider to assess for uncontroll ed pain or analgesic side effects. HYDROmorphone (DILAUDID) injection 0.4 m g Given 01/07/2022 8:28 PM CDT 0.4 mg 0.4 mg, Intravenous, EVERY 2 HOURS PRN, other, severe pain (pain rating 7-10) IF patient unable to take oral pain medication or pain not controlled with oral analgesics, Starting on Tue01/07/22 at 1701, Hold IV PRN opioid dose for analgesic side effects. Notify provider to assess for uncontrolled pain or analgesic side effects. Given 01/07/2022 5:18 PM CDT 0.4 mg hydrOXYzine (ATARAX) tablet 25 mg Given 01/07/2022 7:00 PM CDT 25 mg 25 mg, Oral, EVERY 6 HOURS PRN, other, adjuvant pain, Starting on Tue01/07/22 at 1701 ketorolac (TORADOL) injection 15 mg Given 01/08/2022 6:18 AM CDT 15 mg 15 mg, Intravenous, EVERY 6 HOURS, First dose on Tue01/08/22 at 0030, For 3 doses, May continue use for up to 5 days MAX if order renewed. IF celecoxib (CELEBREX) was given pre-operatively, start ketorolac (TORADOL) 12 hours after celecoxib (CELEBREX) given. Can cause pain on injection. If ordered intravenously (IV) : administer through a running maintenance fluid over 1 minute followed by a flush. If patient complains of pain on injection, may dilute 15-30 mg in 5 mL and push over 1 to 2 minutes. Given 01/08/2022 12:43 AM CDT 15 mg lactated ringers infusion New Bag 01/07/2022 5:52 PM CDT 125 mL/hr at 125 mL/hr, Intravenous, CONTINUOUS, Change to saline lock when PO well tolerated., Starting on Tue01/07/22 at 1730, Until Tue01/08/22 at 1429 Restarted 01/07/2022 5:18 PM CDT 125 mL/hr lidocaine (LMX4) cream Topical, EVERY 1 HOUR PRN, pain, with VAD insertion, S tarting on [facility] 01/07/22 at 1701, Apply at least 30 minutes prior to VAD insertion in divided doses as needed for size of site for insertion. MAX Dose: 2.5 g (?? of 5 g tube) Do NOT give if patient has a history of allergy to any local anesthetic or any rosi product. Do NOT use both lidocaine intradermal/subcu taneous injection and the lidocaine cream on the same site. lidocaine 1 % 0.1-1 mL 0.1-1 mL, Other, EVERY 1 HOUR PRN, mild pain with VAD insertion, Starting on [facility] 01/07/22 at 1701, MAX dose 1 mL subcutane ous OR intradermal along the side of the vein in divided doses as needed for VAD insertion. Do NOT give if patient has a history of allergy to any local anesthet ic or any rosi product. Do NOT use both lidocaine intradermal/subcutaneous injec tion and the lidocaine cream on the same site. magnesium hydroxide (MILK OF MAGNESIA) s uspension 30 mL 30 mL, Oral, DAILY PRN, constipation, Us e if preventive measures (senna-docusate, docusate, and polyethylene glycol) are n ot effective., Starting on [facility] 01/07/22 at 1701, Shake well. Hold for loose stools. naloxone (NARCAN) injection 0.2 mg 0.2 mg, Intravenous, EVERY 2 MIN PRN, op ioid reversal, Starting on Komal 01/07/22 at 1704, Administer intravenous route when available and notify provider when administered. For unintended sedation or respiratory depression if all of the below criteria are met: ~ respiratory rate LES S than or EQUAL to 8. ~SaO2 less than 92% and or/end-tidal CO2 is greater than 50. ~ the patient is receiving an opioid, has unintended sedations assessed as RASS (-3), and is cur rently not on mechanical ventilation. RASS scale moderate (-3) is movement or eye opening to voice but no eye contact. Patient Monitoring Once the patient has demonstrated a response to the naloxone, continue to monitor respiratory rate, depth, oxygen saturation and end-tidal CO2 (if available) every 15 mi nutes x 2, then every 30 minutes x 2, then every 1 hour x 1 after each naloxone dose. Consider tr ansfer to ICU if patient respiratory parameters have not improved after 4 nalox one doses. naloxone (NARCAN) injection 0.2 mg 0.2 mg, Intramuscular, EVERY 2 MIN PRN, opioid reversal, Starting on Komal 01/07/22 at 1704, Administer intramuscular if an int ravenous route is not available and notify provider when administered. For unintend ed sedation or respiratory depression if all of the below criteria are met: ~ respiratory rate LESS than or EQUAL to 8. ~SaO2 less than 92% and or/end-tidal CO2 is greater th an 50. ~ the patient is receiving an opioid, has unintended sedations assessed as RASS (-3), and is currently not on mechanical ventilation. RASS scale moderate (-3) is movement or eye opening to voice but no eye contact. Patient Monitoring Once the patient has demonstrated a response to the naloxone, continue to m onitor respiratory rate, depth, oxygen saturation and end-tidal CO2 (if availab le) every 15 minutes x 2, then every 30 minutes x 2, then every 1 hour x 1 after each naloxone dose. Consider transfer to ICU if patient respiratory parameters have not improved after 4 naloxone doses. naloxone (NARCAN) injection 0.4 mg 0.4 mg, Intravenous, EVERY 2 MIN PRN, op ioid reversal, Starting on Komal 01/07/22 at 1704, Administer intravenous route when available and notify provider when administered. For unintended sedation or respiratory depression if all of the below criteria are met: ~ respiratory rate LES S than or EQUAL to 8. ~ SaO2 less than 92% and or/end-tidal CO2 is greater than 50. ~ the patient is receiving an opioid, has unintended sedation assessed as RASS (-4 ) or (-5) and patient is currently not on mechanical ventilation. RASS scale (-4) is deep sedation with no response to voice but movement or eye opening to physical stimulation. R ASS scale (-5) is unarousable. Patient Monitoring Once the patient has demonstrated a response to the naloxone, continue to monitor respiratory rate, depth, oxygen saturation and end-tidal CO2 (if available) every 15 mi nutes x 2, then every 30 minutes x 2, then every 1 hour x 1 after each naloxone dose. Consider tr ansfer to ICU if patient respiratory parameters have not improved after 4 nalox one doses. naloxone (NARCAN) injection 0.4 mg 0.4 mg, Intramuscular, EVERY 2 MIN PRN, opioid reversal, Starting on Komal 01/07/22 at 1704, Administer intramuscular if an int ravenous route is not available and notify provider when administered. For unintend ed sedation or respiratory depression if all of the below criteria are met: ~ res piratory rate LESS than or EQUAL to 8. ~ SaO2 less than 92% and or/end-tidal CO2 is greater manuel n 50. ~ the patient is receiving an opioid, has unintended sedation assessed as RASS (-4) or (-5) and patient is currently not on mechanical ventilation. RA SS scale (-4) is deep sedation with no response to voice but movement or eye opening to physical stimulation. RASS scale (-5) is unarousa ble. Patient Monitoring Once the patient has demonstrated a response to the nalox one, continue to monitor respiratory rate, depth, oxygen saturation and end-tidal CO2 (if availab le) every 15 minutes x 2, then every 30 minutes x 2, then every 1 hour x 1 after each naloxone dose. Consider transfer to ICU if patient respiratory parameters have not improved after 4 naloxone doses. ondansetron (ZOFRAN ODT) ODT tab 4 mg 4 mg, Oral, EVERY 6 HOURS PRN, nausea, v omiting, Starting on Komal 01/07/22 at 1701, This is Step 1 of nausea and vomiting management. If n ausea not resolved in 15 minutes, go to Step 2 prochlorperazine (COMPAZINE). Do not push through foil backing. Peel back foil and gently remove. Place on to ngue immediately. Administration with liquid unnecessary W ith dry hands, peel back foil backing and gently remove tablet. Do not push oral d isintegrating tablet through foil backing. Administer immediately on tongue and oral disintegrati ng tablet dissolves in seconds, then swallow with saliva. Liquid not required . ondansetron (ZOFRAN) injection 4 mg 4 mg, Intravenous, EVERY 6 HOURS PRN, nausea, vomiting , Administer over 2-5 Minutes, Starting on Komal 01/07/22 at 1701, This is Step 1 of nausea and vomiting management. If nausea not resolved in 15 minutes, go t o Step 2 prochlorperazine (COMPAZINE). Irritant. oxyCODONE (ROXICODONE) tablet 10 mg Given 01/08/2022 8:59 AM CDT 10 mg 10 mg, Oral, EVERY 4 HOURS PRN, severe pain, (pain rating 7-10), Starting on Komal 01/07/22 at 1701, Hold oral PRN dose for analgesic side effects. Notify provider to assess for uncontrolled pain or analgesic side effects. Hold while on IV CABLE LAYER or with regular IV opioid dosing. Given 01/08/2022 3:25 AM CDT 10 mg Given 01/07/2022 11:13 PM CDT 10 mg oxyCODONE (ROXICODONE) tablet 5 mg 5 mg, Oral, EVERY 4 HOURS PRN, other, mo derate pain (pain rating 4-6), Starting on Komal 01/07/22 at 1701, Hold oral PRN dose for analgesic side effects. Notify provider to assess for uncontrolled pain or analg esic side effects. Hold while on IV CABLE LAYER or with regular IV opioid dosing. pantoprazole (PROTONIX) EC tablet 40 mg Given 01/08/2022 6:32 AM CDT 40 mg 40 mg, Oral, EVERY MORNING BEFORE BREAKFAST, First dose on Tue01/08/22 at 0730, DO NOT CRUSH. polyethylene glycol (MIRALAX) Packet 17 g 17 g, Oral, DAILY, First dose on Tue01/08/22 at 0900, To prevent constipation. Mixed prescribed dose in 8 ounces of water, juice or s steve. Administer daily starting at 0900 on POD 1. Hold for loose stools. 1 Pa cket = 17 grams. Mix each gram with at least 1/2 ounce (15 mL) of water - 8 ounces for 17 g dose, 4 ounces for 8.5 g dose, 2 ounces for 4 g dose. F ollow with the same volume of water. Hold for loose stools unless being administer ed as part of a bowel prep regimen or bowel clean out. rivaroxaban ANTICOAGULANT (XARELTO) tablet 10 Given 9:02 AM CDT 10 mg mg 10 mg, Oral, DAILY, First dose on Komal 01/07/22 at 2200, For 35 days, Indications: Ortho post-op DVT Prophylaxis, Not recommended if CrCl less than 30 mL/min Given 01/07/2022 10:13 PM CDT 10 mg senna-docusate (SENOKOT-S/PERICOLACE) Given 01/08/2022 9:00 AM C DT 1 tablet 8.6-50 MG per tablet 1 tablet 1 tablet, Oral, 2 TIMES DAILY, First dose on Komal 01/07/22 at 2100, To prevent constipation. Hold for loose stools Hold for loose stools. Given 01/07/2022 8:28 PM CDT 1 tablet sodium chloride (PF) 0.9% PF flush 3 mL Given 01/08/2022 9:02 AM CDT 3 mLs 3 mL, Intracatheter, EVERY 8 HOURS, First dose on Komal 01/07/22 at 1730, to lock peripheral IV dormant line Given 01/08/2022 12:44 AM CDT 3 mLs sodium chloride (PF) 0.9% PF flush 3 mL 3 mL, Intracatheter, EVERY 1 MIN PRN, li ne flush, other, to ensure patency or to lock dormant line, Starting on Komal 01/07/22 at 1701 sodium chloride 0.9% Given 01/07/2022 2:44 PM 400 mLs Operative Site/Surgical (bottle) irrigation CDT Site PRN, Starting on Komal 01/07/22 at 1444, Intra-procedure documented in this encounter Active and Recently Administered Medications Times are shown in CDT. Scheduled Medication Order 01/06/2022 01/07/2022 01/08/2022 acetaminophen (TYLENOL) tablet 975 mg (COMPLETED) 1223 (Given - Provider: Wendy Gregg RN) 975 mg, Oral, ONCE, On Komal 01/07/22 at 12 30, For 1 dose, Maximum acetaminophen dose from all sources = 75 mg/kg/day not to exceed 4 grams/day., Pre-procedure ceFAZolin (ANCEF) 1 g vial to attach to NS 100 ml bag for ADULT or 50 ml bag for PEDS (COMPLETED) 2213 (New Bag - Provider: Zara Barrios, ZAIN) 0618 (New Bag - Provider: Zara Barrios RN) Routine, 1 g, Intravenous, EVERY 8 HOURS , First dose on Komal 01/07/22 at 2200, For 2 doses, First post-op dose due 8 hours after intra-op dose, see eMAR., Indications: Perioperative Pharmacoprophylaxis ceFAZolin Sodium (ANCEF) injection 2 g (COMPLETED) 1400 (Given - Provider: Vandana Padilla APRN SOCIAL SCIENCES PROFESSOR) Routine, 2 g, Intravenous, PRE-OP/PRE-VA OCEDURE, Starting on Komal 01/07/22 at 1203, For 1 dose, Give first dose within 1 hour PRIOR to incision. If patient weight is greater than or equal to 120 kg increa se dose to 3 g., Indications: Perioperative Pharmacoprophyla xis, Pre-procedure celecoxib (celeBREX) capsule 200 mg (COMPLETED) 1223 (Given - Provider: Wendy Gregg RN) 200 mg, Oral, ONCE, On Komal 01/07/22 at 1230, For 1 dose, Pre-proc edure diltiazem ER (DILT-XR) 24 hr capsule 240 mg 0900 (Given - Provider: Fatou Trujillo RN) 240 mg, Oral, DAILY, First dose on Tue at 0900, DO NOT CRUSH. Hold for sbp < 120 escitalopram (LEXAPRO) tablet 10 mg 0900 (Given - Provider: Fatou Trujillo RN) 10 mg, Oral, DAILY, First dose on Tue01/08/22 at 0900 folic acid (FOLVITE) tablet 400 mcg 2049 (Not Given - Provider: Karen Feliz RN - Reason: Other - Comment: pt already took medication) 0900 (Given - Provider: Fatou Trujillo, ZAIN) 400 mcg, Oral, DAILY, First dose on Komal 01/07/22 at 1730 ketorolac (TORADOL) injection 15 mg 0043 (Given - Provider: Zara Barrios RN)0618 (Given - Provider: Zara Barrios RN)1230 (Canceled Entry - Provider: Orders Generic Provider - Comment: Automatically canceled at discontinue of medication order) 15 mg, Intravenous, EVERY 6 HOURS, First dose on Tue01/08/22 at 0030, For 3 doses, May continue use for up to 5 days MAX if order renewed. IF celecoxib (CELEBREX) was given pre-operatively, start ketoro lac (TORADOL) 12 hours after celecoxib ( CELEBREX) given. Can cause pain on injection. If ordered intravenously (IV) : administer through a running maintenance fluid over 1 minute followed by a flush. If patient complains of pain on injection, may dilute 15-30 mg in 5 mL and push over 1 to 2 minutes. pantoprazole (PROTONIX) EC tablet 40 mg 0632 (Given - Provider: Zara Barrios RN) 40 mg, Oral, EVERY MORNING BEFORE BREAKF AST, First dose on Tue01/08/22 at 0730, DO NOT CRUSH. polyethylene glycol (MIRALAX) Packet 17 g 0859 (Not Given - Provider: Fatou Trujillo RN - Reason: Patient/family refused) 17 g, Oral, DAILY, First dose on 12/24 at 0900, To prevent constipation. Mixed prescribed dose in 8 ounces of water, juice or soda. Administer daily starting at 0900 on POD 1. Hold for loose stool s. 1 Packet = 17 grams. Mix each gram wi th at least 1/2 ounce (15 mL) of water - 8 ounces for 17 g dose, 4 ounces for 8.5 g dose, 2 ounces for 4 g dose. Follow with the same volume of water. Hold for lo ose stools unless being administered as part of a bowel prep regimen or bowel clean out. rivaroxaban ANTICOAGULANT (XARELTO) tablet 10 mg 2213 (Given - Provider: Zara Barrios RN) 0902 (Given - Provider: Fatou Trujillo , ZAIN) 10 mg, Oral, DAILY, First dose on Komal at 2200, For 35 days, Indications: Ortho post-op DVT Prophylaxis, Not recommended if CrCl less than 30 mL/min senna-docusate (SENOKOT-S/PERICOLACE) 8.6-50 MG per tablet 1 tablet 2027 (Given - Provider: Karen Feliz RN) 09 (Given - Provider: Fatou Trujillo , ZAIN) 1 tablet, Oral, 2 TIMES DAILY, First dos e on Komal 01/07/22 at 2100, To prevent constipation. Hold for loose stools Hold for loose stools. sodium chloride (PF) 0.9% PF flush 3 mL 1751 (Not Given - Provider: Lamar Drake RN - Reason: IV Infusing) 0044 (Given - Provider: Kenna Carcamo N)0902 (Given - Provider: Fatou Trujillo RN) 3 mL, Intracatheter, EVERY 8 HOURS, Firs t dose on Komal 01/07/22 at 1730, to lock peripheral IV dormant line tranexamic acid (LYSTEDA) tablet 1,950 mg (COMPLETED) 1223 (Given - Provider: Wendy Gregg RN) 1,950 mg, Oral, ONCE, On Komal 01/07/22 at 1230, For 1 dose, Administer with a sip of water in PRE OP area 90 minutes PRIOR to leaving Pre-op area., Pre-procedure Continuous Medication Order 01/06/2022 01/07/2022 01/08/2022 lactated ringers infusion (CANCELED) 122 0 (New Bag - Provider: Wendy Gregg RN)1501 (Paused - Provider: Vandana Padilla APRN CRNA - Comment: Switch to gravity)1502 (New Bag - Provider: Vandana Padilla APRN SOCIAL SCIENCES PROFESSOR)1553 (Anesthesia Volume Adjustment - Provider: Vandana Padilla APRN CRNA) at 100 mL/hr, Intravenous, CONTINUOUS, P re-procedure, Starting on Komal 01/07/22 at 1230, Until Komal 01/07/22 at 1558 1557 (Anesthesia Volum e Adjustment - Provider: Vandana Padilla APRN SOCIAL SCIENCES PROFESSOR) lactated ringers infusion 1718 (Restarte d - Provider: Lamar Drake, RN)1752 (New Bag - Provider: Lamar Drake RN)0 (Stopped - Provider: Karen Feliz, ZAIN) at 125 mL/hr, Intravenous, CONTINUOUS, C hange to saline lock when PO well tolerated., Starting on Komal 01/07/22 at 1730, Until Tue01/08/22 at 1429 PRN Medication Order 01/06/2022 01/07/2022 01/08/2022 acetaminophen (TYLENOL) tablet 650 mg 650 mg, Oral, EVERY 4 HOURS PRN, other, For optimal non-opioid multimodal pain management to improve pain control., Starting on Tue01/10/22 at 0000, May give first dose 4 hours after last scheduled dose of acetaminophen (TYLENOL). Maximum manoj taminophen dose from all sources = 75 mg/kg/day not to exceed 4 grams/day. albuterol (PROVENTIL HFA/VENTOLIN HFA) inhaler 2 puff, Inhalation, 4 TIMES DAILY PRN, w heezing, shortness of breath / dyspnea, Starting on Komal 01/07/22 at 1712, Check the dose counter on the inhaler to ensure there are doses remaining before administering. alum & mag hydroxide-simethicone (MAALOX) suspension 30 mL 30 mL, Oral, EVERY 4 HOURS PRN, indigest ion, Starting on Komal 01/07/22 at 1701, Shake well. benzocaine-menthol (CEPACOL) 15-3.6 MG lozenge 1 lozenge 1 lozenge, Buccal, EVERY 1 HOUR PRN, mod erate pain, sore throat without fever, Starting on Komal 01/07/22 at 1701 bisacodyl (DULCOLAX) suppository 10 mg 10 mg, Rectal, DAILY PRN, constipation, Use if Magnesium hydroxide (MILK of MAGNESIA) not effective after 24 hours. May discontinue if patient having bowel movement., Starting on Komal 01/07/22 at 1701, Hold for loose stools. fentaNYL (PF) (SUBLIMAZE) injection 50 mcg (CANCELED) 1303 (Given - Provider: Wendymariana Gregg RN)1304 (Given - Provider: Wendy Gregg RN) 50 mcg, Intravenous, EVERY 1 MIN PRN, ot her, procedural sedation/analgesia, Starting on Komal 01/07/22 at 1203, To be given under anesthesiologist supervision. Anesthesiologist will determine dosing at time of procedure. Max dose 100 mcg., Pre-procedure HYDROmorphone (DILAUDID) injection 0.2 mg(Linked Group 1) 1717 (See Alternative - Provider: Lamar Drake RN)2027 (See Alternative - Provider: Karen Feliz, ZAIN) 0.2 mg, Intravenous, EVERY 2 HOURS PRN, other, moderate pain (pain rating 4-6) IF patient unable to take oral pain medication or pain not controlled with oral analgesics, Starting on Komal 01/07/22 at 1701 , Hold IV PRN opioid dose for analgesic side effects. Notify provider to assess for uncontrolled pain or analgesic side effects. HYDROmorphone (DILAUDID) injection 0.4 mg(Linked Group 1) 1717 (Given - Provider: Lamar Drake RN)2027 (Given - Provider: Karen Feliz RN) 0.4 mg, Intravenous, EVERY 2 HOURS PRN, other, severe pain (pain rating 7-10) IF patient unable to take oral pain medication or pain not controlled with oral analgesics, Starting on Komal 01/07/22 at 1701, Hold IV PRN opioid dose for analgesic s santosh effects. Notify provider to assess for uncontrolled pain or analgesic side effects. hydrOXYzine (ATARAX) tablet 25 mg 1900 (Given - Provider: Lamar Drake RN) 25 mg, Oral, EVERY 6 HOURS PRN, other, a djuvant pain, Starting on Komal 01/07/22 at 1701 ipratropium - albuterol 0.5 mg/2.5 mg/3 mL (DUONEB) neb solution 3 mL 3 mL, Inhalation, 2 TIMES DAILY PRN, whe ezing, shortness of breath / dyspnea, Starting on Komal 01/07/22 at 1713 lidocaine (LMX4) cream Topical, EVERY 1 HOUR PRN, pain, with VA D insertion, Starting on Komal 01/07/22 at 1701, Apply at least 30 minutes prior to VAD insertion in divided doses as needed for size of site for insertion. MAX Dose : 2.5 g (?? of 5 g tube) Do NOT give if patient has a history of allergy to any local anesthetic or any rosi product. Do NOT use both lidocaine intradermal/subcutaneous injection and the lidocaine cream on the same site. lidocaine 1 % 0.1-1 mL 0.1-1 mL, Other, EVERY 1 HOUR PRN, mild pain with VAD insertion, Starting on Komal 01/07/22 at 1701, MAX dose 1 mL subcutaneous OR intradermal along the side of the vein in divided doses as needed for VAD insertion. Do NOT give if patient has a history of allergy to any local anesthetic or any rosi product. Do NOT use both lidocaine intradermal/subcutaneous injection and the lidocaine cream on the same site. magnesium hydroxide (MILK OF MAGNESIA) suspension 30 mL 30 mL, Oral, DAILY PRN, constipation, Us e if preventive measures (senna- docusate, docusate, and polyethylene glycol) are not effective., Starting on Komal 01/07/22 at 1701, Shake well. Hold for loose stools. midazolam (VERSED) injection 1 mg (CANCELED) 1303 (Given - Provider: Wendy Gregg, ZAIN)1304 (Given - Provider: Wendy Gregg RN) 1 mg, Intravenous, EVERY 1 MIN PRN, daniel tion, Starting on Komal 01/07/22 at 1203, To be given under anesthesiologist supervision. Anesthesiologist will determine dosing at time of procedure. Max dose 2 mg. This drug may cause significant respira tory depression. Monitor respiratory status and vital signs carefully for 1 hour after each dose., Pre-procedure naloxone (NARCAN) injection 0.2 mg(Linked Group 2) 0.2 mg, Intravenous, EVERY 2 MIN PRN, op ioid reversal, Starting on Komal 01/07/22 at 1704, Administer intravenous route when available and notify provider when administered. For unintended sedation or resp iratory depression if all of the below c riteria are met: ~ respiratory rate LESS than or EQUAL to 8. ~SaO2 less than 92% and or/end-tidal CO2 is greater than 50. ~ the patient is receiving an opioid, hurley s unintended sedations assessed as RASS (-3), and is currently not on mechanical ventilation. RASS scale moderate (-3) is movement or eye opening to voice but no eye contact. Patient Monitoring Once the patient has demonstrated a response to the naloxone, continue to monitor respiratory rate, depth, oxygen saturation and end-tidal CO2 (if available) every 15 minutes x 2, then every 30 minutes x 2, the n every 1 hour x 1 after each naloxone d ose. Consider transfer to ICU if patient respiratory parameters have not improved after 4 naloxone doses. naloxone (NARCAN) injection 0.2 mg(Linked Group 2) 0.2 mg, Intramuscular, EVERY 2 MIN PRN, opioid reversal, Starting on Komal 01/07/22 at 1704, Administer intramuscular if an intravenous route is not available and notify provider when administered. For uni ntended sedation or respiratory depressi on if all of the below criteria are met: ~ respiratory rate LESS than or EQUAL to 8. ~SaO2 less than 92% and or/end-tidal CO2 is greater than 50. ~ the patient is receiving an opioid, has unintended sed ations assessed as RASS (-3), and is currently not on mechanical ventilation. RASS scale moderate (-3) is movement or eye opening to voice but no eye contact. Pat ient Monitoring Once the patient has dem onstrated a response to the naloxone, continue to monitor respiratory rate, depth, oxygen saturation and end-tidal CO2 (if available) every 15 minutes x 2, then e very 30 minutes x 2, then every 1 hour x 1 after each naloxone dose. Consider transfer to ICU if patient respiratory parameters have not improved after 4 naloxone doses. naloxone (NARCAN) injection 0.4 mg(Linked Group 2) 0.4 mg, Intravenous, EVERY 2 MIN PRN, op ioid reversal, Starting on Komal 01/07/22 at 1704, Administer intravenous route when available and notify provider when administered. For unintended sedation or resp iratory depression if all of the below c riteria are met: ~ respiratory rate LESS than or EQUAL to 8. ~ SaO2 less than 92% and or/end-tidal CO2 is greater than 50. ~ the patient is receiving an opioid, h as unintended sedation assessed as RASS (-4) or (-5) and patient is currently not on mechanical ventilation. RASS scale (-4) is deep sedation with no response to voice but movement or eye opening to phy sical stimulation. RASS scale (-5) is un arousable. Patient Monitoring Once the patient has demonstrated a response to the naloxone, continue to monitor respiratory rate, depth, oxygen saturation and end -tidal CO2 (if available) every 15 minut es x 2, then every 30 minutes x 2, then every 1 hour x 1 after each naloxone dose. Consider transfer to ICU if patient respiratory parameters have not improved after 4 naloxone doses. naloxone (NARCAN) injection 0.4 mg(Linked Group 2) 0.4 mg, Intramuscular, EVERY 2 MIN PRN, opioid reversal, Starting on Komal 01/07/22 at 1704, Administer intramuscular if an intravenous route is not available and notify provider when administered. For uni ntended sedation or respiratory depressi on if all of the below criteria are met: ~ respiratory rate LESS than or EQUAL to 8. ~ SaO2 less than 92% and or/end- tidal CO2 is greater than 50. ~ the patient i s receiving an opioid, has unintended se dation assessed as RASS (-4) or (-5) and patient is currently not on mechanical ventilation. RASS scale (-4) is deep sedation with no response to voice but moveme nt or eye opening to physical stimulatio n. RASS scale (-5) is unarousable. Patient Monitoring Once the patient has demonstrated a response to the naloxone, continue to monitor respiratory rate, depth, o xygen saturation and end-tidal CO2 (if a vailable) every 15 minutes x 2, then every 30 minutes x 2, then every 1 hour x 1 after each naloxone dose. Consider transfer to ICU if patient respiratory parameters have not improved after 4 naloxone doses. ondansetron (ZOFRAN ODT) ODT tab 4 mg(Linked Group 3) 4 mg, Oral, EVERY 6 HOURS PRN, nausea, v omiting, Starting on Komal 01/07/22 at 1701, This is Step 1 of nausea and vomiting management. If nausea not resolved in 15 minutes, go to Step 2 prochlorperazine (C OMPAZINE). Do not push through foil back ing. Peel back foil and gently remove. Place on tongue immediately. Administration with liquid unnecessary With dry hands, peel back foil backing and gently remov e tablet. Do not push oral disintegratin g tablet through foil backing. Administer immediately on tongue and oral disintegrating tablet dissolves in seconds, then swallow with saliva. Liquid not required. ondansetron (ZOFRAN) injection 4 mg(Linked Group 3) 4 mg, Intravenous, EVERY 6 HOURS PRN, na usea, vomiting, Administer over 2-5 Minutes, Starting on Komal 01/07/22 at 1701, This is Step 1 of nausea and vomiting management. If nausea not resolved in 15 minut es, go to Step 2 prochlorperazine (COMPAZINE). Irritant. ondansetron (ZOFRAN) tablet 8 mg 8 mg, Oral, 2 TIMES DAILY PRN, nausea, Starting on Komal 01/07/22 a t 1713 oxyCODONE (ROXICODONE) tablet 10 mg(Linked Group 4) 1858 (Given - Provider: Lamar Drake RN)231 (Given - Provider: Zara Barrios RN) 0325 (Given - Provider: Zara Barrios RN)0859 (Given - Provider: Fatou Trujillo, ZAIN) 10 mg, Oral, EVERY 4 HOURS PRN, severe p ain, (pain rating 7-10), Starting on Komal 01/07/22 at 1701, Hold oral PRN dose for analgesic side effects. Notify provider to assess for uncontrolled pain or analge sic side effects. Hold while on IV CABLE LAYER or with regular IV opioid dosing. oxyCODONE (ROXICODONE) tablet 5 mg(Linked Group 4) 1858 (See Alternative - Provider: Lamar Drake RN)2312 (See Alternative - Provider: Zara Barrios RN) 0325 (See Alternative - Provider: Zara Barrios RN)0859 (See Alternative - Provider: Fatou Trujillo, ZAIN) 5 mg, Oral, EVERY 4 HOURS PRN, other, mo derate pain (pain rating 4-6), Starting on Komal 01/07/22 at 1701, Hold oral PRN dose for analgesic side effects. Notify provider to assess for uncontrolled pain or analgesic side effects. Hold while on IV CABLE LAYER or with regular IV opioid dosing. sodium chloride (PF) 0.9% PF flush 3 mL 3 mL, Intracatheter, EVERY 1 MIN PRN, li ne flush, other, to ensure patency or to lock dormant line, Starting on Tue01/07/22 at 1701 sodium chloride 0.9% (bottle) irrigation (CANCELED) 1444 (Given - Provider: Jason Guzman PA-C) PRN, Starting on Komal 01/07/22 at 1444, Intra-procedure Linked Groups Order Group 1: HYDROmorphone (DILAUDID) injection 0.2 mgJump to med 0.2 mg, Intravenous, EVERY 2 HOURS PRN, other, moderate pain (pain rating 4-6) IF patient unable to take oral pain medication or pain not controlled with oral analgesics, Starting on Komal 01/07/22 at 1701
Hold IV PRN opioid dose for analgesi c side effects. Notify provider to assess for uncontrolled pain or analgesic side effects.
Or HYDROmorphone (DILAUDID) injection 0.4 mgJump to med 0.4 mg, Intravenous, EVERY 2 HOURS PRN, other, severe pain (pain rating 7-10) IF patient unable to take oral pain medication or pain not controlled with oral analgesics, Starting on Komal 01/07/22 at 1701& lt;br>Hold IV PRN opioid dose for analge sic side effects. Notify provider to assess for uncontrolled pain or analgesic side effects.
Group 2: naloxone (NARCAN) injection 0.2 mgJump to med 0.2 mg, Intravenous, EVERY 2 MIN PRN, op ioid reversal, Starting on Komal 01/07/22 at 1704
Administer intravenous route when available and notify provider when administered. For unintended sedation or respiratory depression if a ll of the below criteria are met: ~ respiratory rate LESS than or EQUAL to 8. ~SaO2 less than 92% and or/end- tidal CO2 is greater than 50.& nbsp;~ the patient is receiving an opioi d, has unintended sedations assessed as RASS (-3), and is currently not on mechanical ventilation. RASS scale moderate (-3) is movement or eye opening to voice but no eye contact.&nbs p; Patient Monitoring Once the patient has demonstrated a response to the naloxone, continue to monitor respiratory rate, depth, oxygen satu ration and end-tidal CO2 (if available) every 15 minutes x 2, then every 30 minutes x 2, then every 1 hour x 1 after each naloxone dose. Consider transfer to ICU if patient respirator y parameters have not improved after 4 n aloxone doses.
Or naloxone (NARCAN) injection 0.4 mgJump to med 0.4 mg, Intravenous, EVERY 2 MIN PRN, op ioid reversal, Starting on Komal 01/07/22 at 1704
Administer intravenous route when available and notify provider when administered. For unintended sedation or respiratory depression if a ll of the below criteria are met: ~ respiratory rate LESS than or EQUAL to 8. ~ SaO2 less than 92% and or/end- tidal CO2 is greater than 50.& nbsp;~ the patient is receiving an opioi d, has unintended sedation assessed as RASS (-4) or (-5) and patient is currently not on mechanical ventilation. RASS scale (-4) is deep sedati on with no response to voice but movemen t or eye opening to physical stimulation. RASS scale (-5) is unarousable. Patient Monitoring On ce the patient has demonstrated a respon se to the naloxone, continue to monitor respiratory rate, depth, oxygen saturation and end-tidal CO2 (if available) every 15 minutes x 2, then every 30 minutes x 2, then every 1 hour x 1 after each nalo xone dose. Consider transfer to ICU if patient respiratory parameters have not improved after 4 naloxone doses.
Or naloxone (NARCAN) injection 0.2 mgJump to med 0.2 mg, Intramuscular, EVERY 2 MIN PRN, opioid reversal, Starting on Komal 01/07/22 at 1704
Administer intramuscular if an intravenous route is not available and notify provider when administered. For unintended sedation or respira tory depression if all of the below criteria are met: ~ respiratory rate LESS than or EQUAL to 8. ~SaO2 less than 92% and or/end-tidal CO2 is greater than 50. ~ the patient i s receiving an opioid, has unintended sedations assessed as RASS (-3), and is currently not on mechanical ventilation. RASS scale moderate (-3) is movement or eye opening to voice but no eye contact. Patient Monitoring Once the patient has demonstrated a response to the naloxone, continue to monitor respiratory rate, depth, oxygen saturation and end-t idal CO2 (if available) every 15 minutes x 2, then every 30 minutes x 2, then every 1 hour x 1 after each naloxone dose. Consider transfer to [facility] if patient respiratory parameters hav e not improved after 4 naloxone doses.
Or naloxone (NARCAN) injection 0.4 mgJump to med 0.4 mg, Intramuscular, EVERY 2 MIN PRN, opioid reversal, Starting on Komal 01/07/22 at 1704
Administer intramuscular if an intravenous route is not available and notify provider when administered. For unintended sedation or respira tory depression if all of the below criteria are met: ~ respiratory rate LESS than or EQUAL to 8. ~ SaO2 less than 92% and or/end-tidal CO2 is greater than 50. ~ the patient i s receiving an opioid, has unintended sedation assessed as RASS (-4) or (-5) and patient is currently not on mechanical ventilation. RASS s jorge luis (-4) is deep sedation with no respo nse to voice but movement or eye opening to physical stimulation. RASS scale (-5) is unarousable. Patien t Monitoring Once the patient has d emonstrated a response to the naloxone, continue to monitor respiratory rate, depth, oxygen saturation and end-tidal CO2 (if available) every 15 minutes x 2, then every 30 minutes x 2, then every 1 hour x 1 after each naloxone dose. Consider transfer to ICU if patient respiratory parameters have not improved after 4 naloxone doses.
Group 3: ondansetron (ZOFRAN ODT) ODT tab 4 mgJump to med 4 mg, Oral, EVERY 6 HOURS PRN, nausea, v omiting, Starting on Komal 01/07/22 at 1701
This is Step 1 of nausea and vomiting management. If nausea not resolved in 15 minutes, go to Step 2 prochlorperazine (COMPAZINE). Do not push through foil backing. Peel back foil and gently remove. Place on tongue immediately. Administration with liquid unnecessary With dry hands, pee l back foil backing and gently remove ta blet. Do not push oral disintegrating tablet through foil backing. Administer immediately on tongue and oral disintegrating tablet dissolves in seconds, then swallow with saliva. Liquid not required.
Or ondansetron (ZOFRAN) injection 4 mgJump to med 4 mg, Intravenous, EVERY 6 HOURS PRN, na usea, vomiting, Administer over 2-5 Minutes, Starting on Komal 01/07/22 at 1701
This is Step 1 of nausea and vomiting management. If naus ea not resolved in 15 minutes, go to Emmanuel p 2 prochlorperazine (COMPAZINE). Irritant.
Group 4: oxyCODONE (ROXICODONE) tablet 5 mgJump to med 5 mg, Oral, EVERY 4 HOURS PRN, other, mo derate pain (pain rating 4-6), Starting on Komal 01/07/22 at 1701
Hold oral PRN dose for analgesic side effects. Notify provider to assess for uncontrolled pain or analgesic side effects. Ho ld while on IV CABLE LAYER or with regular IV opioid dosing.
Or oxyCODONE (ROXICODONE) tablet 10 mgJump to med 10 mg, Oral, EVERY 4 HOURS PRN, severe p ain, (pain rating 7-10), Starting on Komal 01/07/22 at 1701
Hold oral PRN dose for analgesic side effects. Notify provider to assess for uncontrolled pain o r analgesic side effects. Hold whi le on IV CABLE LAYER or with regular IV opioid dosing.
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
--- OUTSIDE RECORDS SUMMARY | 2022-02-01 13:13 | XMS_ITS | Encounter Summary ---
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
--- OUTSIDE RECORDS SUMMARY | 2022-02-01 13:13 | XMS_ITS | Encounter Summary ---
:1960 Author Organization [facility] Address [address] [place] [id number] Care Team Providers Name Role Phone Unavailable Primary Care Provider Unavailable Encounter Details Date Type Department Care Team Description 01/05/2022 Travel Social History Tobacco Use Types Packs/Day Years Used Date Smoking Tobacco: Former Smokeless Tobacco: Never Alcohol Use Standard Drinks/Week Comments Yes 0 (1 standard drink = 0.6 oz pure alcoho l) Sex Assigned at Date Recorded Not on file COVID-19 Exposure Response Date Recorded In the last 10 days, have you been in contact with Yes 01/05/2022 11:18 AM CDT someone who was confirmed or suspected to have Coronavirus/COVID-19? documented as of this encounter Plan of Treatment Not on filedocumented as of this encounter Visit Diagnoses Not on filedocumented in this encounter
--- OUTSIDE RECORDS SUMMARY | 2022-02-01 13:13 | XMS_ITS | Encounter Summary ---
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) [C34.90, C79.51] Lesion of femur [M89.9] [facility] Periop Services Procedures ZZC OPEN FIX INTER/SUBTROCH FX,PLATE ZZC OPEN FIX INTER/SUBTROCH FX,IMPLNT ZZC OPEN TREATMENT GREATER TROCHANTERIC FRACTURE PROPHYLACTIC INTRAMEDULLARY NAILING OF RIGHT HIP [address] [place], [place] [phone] Phone: Referral ID Status Reason Start Date Expiration Date Visits Requ ested Visits Authorized [id number] 1 1 Encounter Details Date Type Department Care Team Description 01/07/2022 - Hospital Encounter [facility] Wayne Humphries MD 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 COMPLICATIONS/SIGNIFICANT FINDINGS None DISCHARGE INFORMATION [...] due to metastasis (H) Nikky Encinas PA-C/Dr. Humphries [facility] [phone] Date: 01/08/2022 Time: 9:02 AM documented in this encounter Medications at Time of Discharge Medication Sig Dispensed Refills Start Date End Date acetaminophen (TYLENOL) Take 2 tablets (650 60 tablet 0 325 MG tabletIndications: mg) by mouth every 4 Osteolytic lesion due to hours as needed for metastasis (H) other (mild pain) albuterol (PROAIR Inhale 2 puffs into 0 HFA/PROVENTIL the lungs 4 times HFA/VENTOLIN HFA) 108 (90 daily as needed Base) MCG/ACT inhaler nekmaik-syrrmnneftlah-oot Take 1 tablet by 0 feine (EXCEDRIN [...] g by mouth 7 packet 0 01/08/20 (MIRALAX) 17 g daily packetIndications: Osteolytic lesion [...] lower body dressing Lower Body Dressing Assessment/Training [place] Level (Lower Body Dressing) minimum assist (75% [...] CO2 Report completed by: Nikky Encinas PA-C [facility] Date: 01/08/2022 Time: 8:59 AM Michael Mazariegos MD - 01/08/2022 8:[address] [facility] MEDICINE PROGRESS NOTE Identification/Summary: 61-year-old male with a history of metastatic adenocarcinoma of the lung presents for prophylactic intramedullary nailing of the hip. Doing all right postoperative day #1. Metastatic adenocarcinoma the right lung Status post prophylactic intramedullary nailing Patient will follow up with his oncologist through [facility] Acute blood loss anemia Mild and asymptomatic [...] care was discussed with the Bedside Nurse, Corporate Strategy Analyst/Lockstitch Shoulder Joiner and Patient. Michael Mazariegos MD [facility] Medicine [facility] Phone: #[phone] Interval History/Subjective: Patient feeling good. Eating. Urinating. [...] be read by a radiologist or a [facility] non-radiologist provider. Labs: Most Recent 3 CBC's:Recent [...] sodium chloride (PF) 3 mL Intracatheter Q8H Rodrick Tasha, PT - 01/08/2022 8:52 AM CDT 01/08/22 [...] Transfers Transfers sit-stand transfer Sit-Stand Transfer Sit-Stand [place] (Transfers) supervision;verbal cues Gait/Stairs (Locomotion) [place] Level (Gait) supervision;verbal cues;nonverbal cues (demo/gesture) Assistive Device (Gait) walker, front-wheeled Distance in Feet (Required for LE Total Joints) 100 Pattern (Gait) 3-point Deviations/Abnormal Patterns (Gait) gait speed decreased Maintains Weight-bearing Status (Gait) able to maintain;nonverbal cues (demo/gesture) to maintain;verbal cues to maintain Negotiation (Stairs) stairs independence;stairs assistive device;handrail location;number of steps;ascending technique;descending technique [place] Level (Stairs) supervision;verbal cues;nonverbal cues (demo/gesture) Handrail Location (Stairs) both sides Number of Steps (Stairs) 4 Ascending Technique (Stairs) [id number]-[id number] Descending Technique (Stairs) [id number] Clinical Impression Criteria for Skilled Therapeutic Intervention [...] 5:42 PM CDTAssociated Order(s): HOSPITALIST IP CONSULT [facility] MEDICINE CONSULT NOTE Physician requesting consult: Wayne Humphries MD Reason for consult: Postoperative medical management of medical co-morbidities as below Assessment and Plan Hector Norris is a 61 year old old male with a history of metastatic adenocarcinoma of the right lung presents for prophylactic intramedullary nailing of the right hip due to metastases. [facility] [place] asked to evaluate patient for [...] will follow up with his oncologist through [facility] Rheumatoid arthritis Clinically stable Paroxysmal atrial fibrillation [...] Week at does not have with ??? zglvzge-nusdbhxdohnyh-xqgvkqgo (EXCEDRIN MIGRAINE) 250-250-65 MG tablet Take 1 [...] mouth 3 times daily as needed 01/06/2022 [id number] ??? ipratropium - albuterol 0.5 mg/2.5 mg/3 [...] be read by a radiologist or a [facility] non-radiologist provider. Labs Reviewed Personally By Myself [...] Abnormality Status --------- ------ Adult Type and Screen[[id number]] Final result Please view results for these tests on the individual orders. Adult Type and Screen Result Value Ref Range ABO/RH(D) O POS Antibody Screen Negative Negative SPECIMEN EXPIRATION DATE [id number] XR Surgery MARK Fluoro G/T 5 Min Narrative This exam was marked as non-reportable because it will not be read by a radiologist or a [facility] non-radiologist provider. Preoperative Labs Reviewed Personally By [...] any questions or concerns. Michael Mazariegos MD [facility] Phone: #[phone] documented in this encounter Miscellaneous Notes Plan [...] goal(s). See goals on Care Plan in [facility] electronic health record for goal details. Goals met Therapy recommendation(s): No further therapy is recommended. Plan of Care - Tasha Mensah, PT - 01/08/2022 8:57 AM CDT Physical Therapy Discharge Summary Reason for therapy discharge: Goals met. Progress towards therapy goal(s). See goals on Care Plan in [facility] electronic health record for goal details. [...] analgesics: Yes Does patient have an identified assistant baseball coach: Yes Has goal D/C date and [...] analgesics: Yes Does patient have an identified assistant baseball coach: Yes Has goal D/C date and time been discussed with patient: Yes Continue to monitor VS, labs, pain level, incision site and activity tolerance. Goal Outcome Evaluation: Provider Notification - Wendy Gregg RN - 01/07/2022 1:24 PM CDT Notified Jason JIM, regarding todays labs, WBC elevated from 2 days ago. Will proceed with OR today. Pharmacy-Admission Medication History - Autumn Holm [facility] - 01/07/2022 12:29 PM CDT Pharmacy Note - Admission Medication History Pertinent Provider Information: n/a Prior To Admission (OUTSIDE PLANT FIELD ENGINEER) med list completed and updated in EMR. OUTSIDE PLANT FIELD ENGINEER Med List Medication Sig Last Dose ??? albuterol (PROAIR HFA/PROVENTIL HFA/VENTOLIN HFA) 108 (90 Base) MCG/ACT inhaler Inhale 2 puffs into the lungs 4 times daily as needed Past Week at does not have with ??? sfapvnn-oyjbnlwdhigzs-nbcnowvl (EXCEDRIN MIGRAINE) 250-250-65 MG tablet Take 1 [...] mouth 3 times daily as needed 01/06/2022 [id number] ??? ipratropium - albuterol 0.5 mg/2.5 mg/3 [...] Patient was asked about OTC/herbal products specifically. OUTSIDE PLANT FIELD ENGINEER med list reflects this. Based on the pharmacist's assessment, the OUTSIDE PLANT FIELD ENGINEER med list information appears reliable Allergies were reviewed, assessed, and updated with the patient. Patient did not bring any medications to the hospital and can't retrieve from home. No multi-dose medications are available for use during hospital stay. Thank you for the opportunity to participate in the care of this patient. Autumn Holm, PharmD, [facility] 01/07/2022 12:29 PM Op Note - Wayne [...] fascia iliac a block in preop per [facility]. He was appropriately premedicated. Consent obtained risks reviewed. Labswere checked. He was premedicated brought to the operative room undergoing anesthetic induction. Transferred to the [place] table. [place] boot was applied to the right lower [...] in the sagittal plane, using the perfect [place] technique was used to drill the static transverse screw hole. This was measured and filled with the appropriately sized interlocking screw. Then, in likewise fashion using the C-arm in the sagittal plane, using the perfect [place] technique, the dynamic screw slot was predrilled [...] procedure well and was sent to the [facility] in stable condition. Estimated Blood Loss: Less than 50 cc Specimens: No specimen Drains: No drain Complications: None Wayne Humphries MD Date: 01/07/2022 Time: 3:37 PM Implant Name Type Inv. Item Serial No. Driller Brake Lining Lot No. LRB No. Used Action SYNTHES TITANIUM NAIL RT 12MM X 380MM SYNTHES [id number] Right 1 Implanted SYNTHES LOCKING SCREW IM NAIL 5 X 38MM SYNTHES [id number] Right 1 Implanted SYNTHES IM LOCKING SCREW 5 X 72MM SYNTHES [id number] Right 1 Implanted SYNTHES LOCKING SCREW IM NAIL 5 X 40MM SYNTHES [id number] Right 1 Implanted SYNTHES LOCKING SCREW IM NAIL 5 X 46MM SYNTHES [id number] Right 1 Implanted Provider Notification - Blaine Castillo APRN CNP - 01/06/2022 12:36 PM CDT I am evaluating this patient for upcoming Prophylactic Intramedullary Nailing of Right Hip with Dr. Humphries at [facility] on 01/07/22: - Notified by preop RNEllen, [...] APRN, RAJNI Advanced Practice Nurse Navigator- Orthopedics [facility] Office Direct documented in this encounter Plan [...] Notes SYNTHES RECON NAIL LOANERS.N blayne Carnes. [phone] John Wells [phone] Ernestina Hamzah [phone] Special Needs C-Arm - Removed C-Arm (confl ict) to get scheduled - ok to do per Jeannette 01/01/22 TRIPPPranav Table TYPE AND SCREEN, ADULT STAT 01/07/2022 [...] Signature Hemoglobin 10.7 (L) 13.3 - 01/08/2022 [facility] 17.7 g/dL 5:42 AM CDT Specimen Anatomical Collection Method / Collection Time Recei ry Time (Source) Location / Volume Laterality Blood STRUCTURE OF RIGHT Venipuncture / 01/08/2022 5:36 09/09/2021 5:39 UPPER LIMB / Unknown AM CDT AM CDT Unknown Jason Guzman PA-C LAB - BLOOD ORDERABLES Performing Organization Address City/[facility]/ZIP Code Phon e Number [facility] [place] [address] [facility] XR Surgery MARK Fluoro G/T 5 Min (01/07/2022 3:53 PM CDT) Specimen (Source) Anatomical Location Collection Method / Collectio n Time Received Time / Laterality Volume Narrative RADI[facility] - 01/07/2022 3:56 PM CDT This exam was marked as non-reportable because it will not be read by a radiologist or a [facility] non-radiologis t provider. Wayne Humphries MD IMG DIAGNOSTIC IMAGING ORDER DUNG Performing Organization Address [facility] Code Phon e Number [facility] Adult Type and Screen (01/07/2022 12:13 PM CDT) [facility] Method Time Signature ABO/RH(D) O POS 01/07/2022 [facility] B[facility] 12:15 PM BANK CDT Antibody Negative Negative 01/07/2022 [facility] Screen 12:15 PM BANK CDT SPECIMEN [id number] 01/07/2022 [facility] EXPIRATION 12:15 PM BANK DATE CDT Specimen Anatomical Collection Method / Collection Time Recei ry Time (Source) Location / Volume Laterality Blood BLOOD SPECIMEN / Venipuncture / 01/07/2022 12:13 01/07 Unknown Unknown PM CDT 12:22 PM CDT Jason Guzman PA-C LAB - BLOOD BANK TEST ORDER Performing Organization Address City/[facility]/ZIP Code Phon e Number [facility] [address] [place] [address] (ABNORMAL) Erythrocyte sedimentation rate auto (01/07/2022 12:13 PM CDT) [facility] Method Time Signature Erythrocyte 25 (H) 0 - 15 01/07/2022 [facility] Sedimentation Rate mm/hr 1:07 PM CDT Specimen Anatomical Collection Method / Collection Time Recei ry Time (Source) Location / Volume Laterality Blood BLOOD SPECIMEN / Venipuncture / 01/07/2022 12:13 01/07 Unknown Unknown PM CDT 12:22 PM CDT Jason Guzman PA-C LAB - BLOOD ORDERABLES Performing Organization Address City/[facility]/[place] [address] (ABNORMAL) CRP inflammation (01/07/2022 12:13 PM CDT) athologist Signature CRP 1.4 (H) 0.0 - <0.8 01/07/2022 [facility] mg/dL 12:38 PM CDT Specimen Anatomical Collection Method / Collection Time Recei ry Time (Source) Location / Volume Laterality Blood BLOOD SPECIMEN / Venipuncture / 01/07/2022 12:13 01/07 Unknown Unknown PM CDT 12:22 PM CDT Jason Guzman PA-C LAB - BLOOD ORDERABLES Performing Organization Address City/[facility]/[place] [address] INR (01/07/2022 12:13 PM CDT) athologist Signature INR 0.94 0.85 - 1.15 01/07/2022 [facility] 12:36 PM CDT Specimen Anatomical Collection Method / Collection Time Recei ry Time (Source) Location / Volume Laterality Blood BLOOD SPECIMEN / Venipuncture / 01/07/2022 12:13 01/07 Unknown Unknown PM CDT 12:22 PM CDT Jason Guzman PA-C LAB - BLOOD ORDERABLES Performing Organization Address City/[facility]/[place] [address] (ABNORMAL) Creatinine (01/07/2022 12:13 PM CDT) athologist Signature Creatinine 0.69 (L) 0.70 - 01/07/2022 [facility] 1.30 mg/dL 12:38 PM CDT GFR Estimate >90 >60 01/07/2022 [facility] mL/min/1.7 12:38 PM CDT 3m2 Comment: Effective 2021 eGF Rcr in adults is calculated using the 2020 CKD-EPI creatinine equation which includ es age and gender (Megan et al., [place], DOI: 10.1056/RGZHfq7928738) Specimen Anatomical Collection Method / Collection Time Recei ry Time (Source) Location / Volume Laterality Blood BLOOD SPECIMEN / Venipuncture / 01/07/2022 12:13 01/07 Unknown Unknown PM CDT 12:22 PM CDT Jason Guzman PA-C LAB - BLOOD ORDERABLES Performing Organization Address City/[facility]/[place] [address] Potassium (01/07/2022 12:13 PM CDT) P athologist Signature Potassium 4.3 3.5 - 5.0 01/07/2022 [facility] mmol/L 12:38 PM CDT Specimen Anatomical Collection Method / Collection Time Recei ry Time (Source) Location / Volume Laterality Blood BLOOD SPECIMEN / Venipuncture / 01/07/2022 12:13 01/07 Unknown Unknown PM CDT 12:22 PM CDT Jason Guzman PA-C LAB - BLOOD ORDERABLES Performing Organization Address City/[facility]/ZIP Code Phon e Number [facility] [place] [address] (ABNORMAL) CBC with platelets (01/07/2022 12:13 PM CDT) Patholo gist Method Time Signature WBC Count 13.2 (H) 4.0 - 11.0 01/07/2022 [facility] 10e3/uL 12:26 PM CDT RBC Count 4.02 (L) 4.40 - 01/07/2022 [facility] 5.90 12:26 PM CDT 10e6/uL Hemoglobin 12.0 (L) 13.3 - 01/07/2022 [facility] 17.7 g/dL 12:26 PM CDT Hematocrit 36.0 (L) 40.0 - 01/07/2022 [facility] 53.0 % 12:26 PM CDT MCV 90 78 - 100 01/07/2022 [facility] fL 12:26 PM CDT MCH 29.9 26.5 - 01/07/2022 [facility] 33.0 pg 12:26 PM CDT MCHC 33.3 31.5 - 01/07/2022 [facility] 36.5 g/dL 12:26 PM CDT RDW 15.2 (H) 10.0 - 01/07/2022 [facility] 15.0 % 12:26 PM CDT Platelet Count 417 150 - 450 01/07/2022 [facility] 10e3/uL 12:26 PM CDT Specimen Anatomical Collection Method / Collection Time Recei ry Time (Source) Location / Volume Laterality Blood BLOOD SPECIMEN / Venipuncture / 01/07/2022 12:13 01/07 Unknown Unknown PM CDT 12:22 PM CDT Jason Guzman PA-C LAB - BLOOD ORDERABLES Performing Organization Address City/State/ZIP Code Phon e Number [facility] [place] [address] [address] POC US Guidance Needle Placement (01/07/2022 12:03 [...] malignant neoplasm of bone and bone marrow 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 Maximum acetaminophen dose from all sources = 75 mg/kg/day not to exceed 4 grams/day. acetaminophen (TYLENOL) tablet 975 mg Given 01/07/2022 12:23 PM CDT 975 mg 975 mg, Oral, ONCE, On [facility] 01/07/22 at 1230, For 1 dose, Maximum acetaminophen dose from all sources = 75 mg/kg/day not to exceed 4 grams/day., Pre-procedure alum & mag hydroxide-simethicone (MAALOX ) suspension 30 mL 30 mL, Oral, EVERY 4 HOURS PRN, indigest ion, Starting on [facility] 01/07/22 at 1701, Shake well. benzocaine-menthol (CEPACOL) 15-3.6 MG l ozenge 1 lozenge 1 lozenge, Buccal, EVERY 1 HOUR PRN, moderate pain, so re throat without fever, Starting on [facility] 01/07/22 at 1701 bisacodyl (DULCOLAX) suppository 10 mg 10 mg, Rectal, DAILY PRN, constipation, Use if Magnesi um hydroxide (MILK of MAGNESIA) not effective after 24 hours. May discontinu e if patient having bowel movement., Starting on [place] 01/07/22 at 1701, Hold for l oose stools. ceFAZolin (ANCEF) 1 g vial to attach New Bag 01/08/2022 6:18 A M CDT 1 g 200 mL/hr to NS 100 ml bag for ADULT or 50 ml bag for PEDS Routine, 1 g, Intravenous, EVERY 8 HOURS, First dose on [place] 01/07/22 at 2200, For 2 doses, First post-op dose due 8 hours after intra-op dose, see eMAR., Indications: Perioperative Pharmacoprophylaxis New Bag 01/07/2022 10:13 PM CDT 1 g 200 mL/hr celecoxib (celeBREX) capsule 200 mg Given 01/07/2022 12:23 PM CDT 200 mg 200 mg, Oral, ONCE, On [place] 01/07/22 at 1230, For 1 dose, Pre-procedure diltiazem ER (DILT-XR) 24 hr capsule 240 mg Given 01/08/2022 9:00 AM CDT 240 mg 240 mg, Oral, DAILY, First dose on Tue01/08/22 at 0900, DO NOT CRUSH. Hold for sbp < 120 escitalopram (LEXAPRO) tablet 10 mg Given 01/08/2022 9:00 AM CDT 10 mg 10 mg, Oral, DAILY, First dose on Tue01/08/22 at 0900 fentaNYL (PF) (SUBLIMAZE) injection 50 m cg Given 01/07/2022 1:04 PM CDT 50 mcg 50 mcg, Intravenous, EVERY 1 MIN PRN, other, procedural sedation/analgesia, Starting on [place] 01/07/22 at 1203, To be given under anesthesiologist supervision. Anesthesiologist will determine dosing at time of procedure. Max dose 100 mcg., Pre-procedure Given 01/07/2022 1:03 PM CDT 50 mcg folic acid (FOLVITE) tablet 400 mcg Given 01/08/2022 9:00 AM CDT 400 mcg 400 mcg, Oral, DAILY, First dose on [place] 01/07/22 at 1730 HYDROmorphone (DILAUDID) injection 0.2 m g 0.2 mg, Intravenous, EVERY 2 HOURS PRN, other, moderate pain (pain rating 4-6) IF patient unable to take oral pain medication or pain no t controlled with oral analgesics, Starting on [place] 01/07/22 at 1 701, Hold IV PRN opioid [...] HOURS PRN, other, adjuvant pain, Starting on [place] 01/07/22 at 1701 ketorolac (TORADOL) injection 15 mg [...] mg lactated ringers infusion New Bag 01/07/2022 3:02 PM CDT at 100 mL/hr, Intravenous, CONTINUOUS, Pre-procedure, Starting on [place] 01/07/22 at 1230, Until Tue01/07/22 at 1558 New Bag 01/07/2022 12:20 PM CDT 100 mL/hr lactated ringers infusion New Bag 01/07/2022 5:52 PM CDT 125 mL/hr at 125 mL/hr, Intravenous, CONTINUOUS, Change to saline lock when PO well tolerated., Starting on Tue01/07/22 at 1730, Until Tue01/08/22 at 1429 Restarted 01/07/2022 5:18 PM CDT 125 mL/hr lidocaine (LMX4) cream Topical, EVERY 1 HOUR PRN, pain, with VAD insertion, S tarting on [place] 01/07/22 at 1701, Apply at [...] glycol) are n ot effective., Starting on [place] 01/07/22 at 1701, Shake well. Hold for loose stools. midazolam (VERSED) injection 1 mg Given 01/07/2022 1:04 PM CDT 1 mg 1 mg, Intravenous, EVERY 1 MIN PRN, sedation, Starting on [place] 01/07/22 at 1203, To be given under anesthesiologist supervision. Anesthesiologist will determine dosing at time of procedure. Max dose 2 mg. This drug may cause significant respiratory depression. Monitor respiratory status and vital signs carefully for 1 hour after each dose., Pre-procedure Given 01/07/2022 1:03 PM CDT 1 mg naloxone (NARCAN) injection 0.2 mg 0.2 mg, [...] analgesic side effects. Hold while on IV BRIM PLATER or with regular IV opioid dosing. Given [...] esic side effects. Hold while on IV BRIM PLATER or with regular IV opioid dosing. pantoprazole [...] line, Starting on [place] 01/07/22 at 1701 tranexamic acid (LYSTEDA) tablet 1,950 m g Given 01/07/2022 12:23 PM CDT 1,950 mg 1,950 mg, Oral, ONCE, On [place] 01/07/22 at 1230, For 1 dose, Administer with a sip of water in PRE OP area 90 minutes PRIOR to leaving Pre-op area., Pre-procedure documented in this encounter Active and Recently [...] (COMPLETED) 2213 (New Bag - Provider: Zara Barrios RN) 0618 (New Bag - Provider: Zara Barrios RN) Routine, 1 g, Intravenous, EVERY 8 HOURS , First dose on [place] 01/07/22 at 2200, For 2 doses, First post-op dose due 8 hours after intra-op dose, see eMAR., Indications: Perioperative Pharmacoprophylaxis ceFAZolin Sodium (ANCEF) injection 2 g (COMPLETED) 1400 (Given - Provider: Vandana Padilla APRN COMMERCIAL SALES DIRECTOR) Routine, 2 g, Intravenous, PRE-OP/PRE-NM OCEDURE, Starting on [place] 01/07/22 at 1203, [...] took medication) 0900 (Given - Provider: Fatou Trujillo RN) 400 mcg, Oral, DAILY, First dose on [...] RN) 0902 (Given - Provider: Fatou Trujillo RN) 10 mg, Oral, DAILY, First dose on [place] at 2200, For 35 days, Indications: Ortho post-op DVT Prophylaxis, Not recommended if CrCl less than 30 mL/min senna-docusate (SENOKOT-S/PERICOLACE) 8.6-50 MG per tablet 1 tablet 2027 (Given - Provider: Karen eFliz, RN) 0900 (Given - Provider: Fatou Trujillo , RN) 1 tablet, Oral, 2 TIMES DAILY, First dos e on [place] 01/07/22 at 2100, To prevent constipation. Hold for loose stools Hold for loose stools. sodium chloride (PF) 0.9% PF flush 3 mL 175 (Not Given - Provider: Lamar Drake RN - Reason: IV Infusing) 0044 (Given - Provider: Kenna Carcamo)0902 (Given - Provider: Fatou Trujillo, ZAIN) 3 mL, Intracatheter, EVERY 8 HOURS, Firs [...] (New Bag - Provider: Vandana Padilla APRN CRNA)1553 (Anesthesia Volume Adjustment - Provider: Vandana Padilla APRN CRNA) at 100 mL/hr, Intravenous, CONTINUOUS, P re-procedure, Starting on [place] 01/07/22 at 1230, Until [place] 01/07/22 at 1558 1557 (Anesthesia Volum e Adjustment - Provider: Vandana Padilla APRN CRNA) lactated ringers infusion 1718 (Restarte d - Provider: Lamar Drake, RN)1752 (New Bag - Provider: Lamar Drake, RN)2050 (Stopped - Provider: Karen Feliz, ZAIN) at [...] 50 mcg (CANCELED) 1303 (Given - Provider: Wendy Gregg RN)1304 (Given - Provider: Wendy Gregg RN) 50 mcg, Intravenous, EVERY 1 MIN PRN, ot her, procedural sedation/analgesia, Starting on [place] 01/07/22 at 1203, To be given under anesthesiologist supervision. Anesthesiologist will determine dosing at time of procedure. Max dose 100 mcg., Pre-procedure HYDROmorphone (DILAUDID) injection 0.2 mg(Linked Group 1) 1717 (See Alternative - Provider: Lamar Drake, RN)2027 (See Alternative - Provider: Karen Feliz, RN) 0.2 mg, Intravenous, EVERY 2 HOURS PRN, [...] Group 1) 1717 (Given - Provider: Lamar Drake, ZAIN)2027 (Given - Provider: Karen Feliz, RN) 0.4 mg, Intravenous, EVERY 2 HOURS PRN, other, severe pain (pain rating 7-10) IF patient unable to take oral pain medication or pain not controlled with oral analgesics, Starting on Komal 01/07/22 at 1701, Hold IV PRN opioid dose for analgesic s santosh effects. Notify provider to assess for uncontrolled pain or analgesic side effects. hydrOXYzine (ATARAX) tablet 25 mg 190 (Given - Provider: Lamar Drake, ZAIN) 25 mg, Oral, EVERY 6 HOURS PRN, [...] mg (CANCELED) 1303 (Given - Provider: Wendy Gregg RN)1304 (Given - Provider: Wendy Gregg, ZAIN) 1 mg, Intravenous, EVERY 1 MIN PRN, [...] oxyCODONE (ROXICODONE) tablet 10 mg(Linked Group 4) 185 (Given - Provider: Lamar Drake RN)2313 (Given - Provider: Zara Barrios RN) 0325 (Given - Provider: Zara Barrios RN)0859 (Given - Provider: Fatou Trujillo RN) 10 mg, Oral, EVERY 4 HOURS PRN, severe p ain, (pain rating 7-10), Starting on Komal 01/07/22 at 1701, Hold oral PRN dose for analgesic side effects. Notify provider to assess for uncontrolled pain or analge sic side effects. Hold while on IV BRIM PLATER or with regular IV opioid dosing. oxyCODONE (ROXICODONE) tablet 5 mg(Linked Group 4) 767 (See Alternative - Provider: Lamar Drake RN)2313 (See Alternative - Provider: Zara Barrios RN) 0325 (See Alternative - Provider: Zara Barrios RN)0859 (See Alternative - Provider: Fatou Trujillo RN) 5 mg, Oral, EVERY 4 HOURS PRN, other, mo derate pain (pain rating 4-6), Starting on Komal 01/07/22 at 1701, Hold oral PRN dose for analgesic side effects. Notify provider to assess for uncontrolled pain or analgesic side effects. Hold while on IV BRIM PLATER or with regular IV opioid dosing. sodium chloride (PF) 0.9% PF flush 3 mL 3 mL, Intracatheter, EVERY 1 MIN PRN, li ne flush, other, to ensure patency or to lock dormant line, Starting on Komal 01/07/22 at 1701 sodium chloride 0.9% (bottle) irrigation (CANCELED) 1444 (Given - Provider: Jason Guzman PA-C) PRN, Starting on Tue01/07/22 at 1444, Intra-procedure Linked Groups Order Group [...] after each naloxone dose. Consider transfer to [facility] if patient respiratory parameters hav e not [...] side effects. Ho ld while on IV BRIM PLATER or with regular IV opioid dosing.
Or oxyCODONE (ROXICODONE) tablet 10 mgJump to med 10 mg, Oral, EVERY 4 HOURS PRN, severe p ain, (pain rating 7-10), Starting on Komal 01/07/22 at 1701
Hold oral PRN dose for analgesic side effects. Notify provider to assess for uncontrolled pain o r analgesic side effects. Hold whi le on IV BRIM PLATER or with regular IV opioid dosing.
documented in this encounter Care Teams Piccolo Mechanic Relationship Specialty Start Date End Date Tin Hernandez PCP - General Family Medicine 01/06/[address] [place] [address] documented as of this encounter
--- OUTSIDE RECORDS SUMMARY | 2022-02-01 13:13 | XMS_ITS | Encounter Summary ---
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) [C34.90, C79.51] Lesion of femur [M89.9] [facility] Periop Services Procedures ZZC OPEN FIX INTER/SUBTROCH FX,PLATE ZZC OPEN FIX INTER/SUBTROCH FX,IMPLNT ZZC OPEN TREATMENT GREATER TROCHANTERIC FRACTURE PROPHYLACTIC INTRAMEDULLARY NAILING OF RIGHT HIP [address] [place], [place] [phone] Phone: Referral ID Status Reason Start Date Expiration Date Visits Requ ested Visits Authorized [id number] 1 1 Encounter Details Date Type Department Care Team Description 01/07/2022 Anesthesia Event M [facility] Mina Castillo [facility] [address] [place] [address] [place], [place] [phone] (Wo rk) [id number] [phone] Anesthesia Record Procedure Summary Procedure Name Responsible Anesthesia Start Anesthesia Stop Anesthesiologist Time Time PROPHYLACTIC Hector Castillo, 01/07/22 1400 01/07/22 1605 INTRAMEDULLARY NAILING MD OF RIGHT HIP (Right: Hip) Events Date Time Event Comment 01/07/2022 1236 1253 GRAVURE PRINTING MACHINIST Ready for Procedure 1400 An Start 1401 AN REASSESS I attest that I have identified and re-evaluated the patient immediately before the induction of anesthesia and I am satisfied that t he anesthetic plan is suitable for the patient's condition and procedure. The f irst vital signs recorded are pre- inducti on. Vandana Padilla APRN GRA[employer]URE PRINTING MACHINIST 1401 An Start Data 1404 MD Present 1410 Anesthesia Complete 1501 MD Present 1538 MD Present 1556 an stop data 1605 An Stop Electronically s igned by Vandana Padilla APRN [employer] PRINTING MACHINIST on 2021 4:05 PM Name Total midazolam 1 mg/mL 2 mg fentaNYL 50 mcg/mL 100 mcg propofol 10 mg/mL 501.1 mg ketamine 10 mg/mL 20 mg phenylephrine 0.1 mg/mL infusion (mcg/kg/min) 3.62 mg dexamethasone (DECADRON) 10 mg/mL 10 mg ondansetron 2 mg/mL 4 mg bupivacaine spinal 0.75% in dextrose 8.25% 1.8 mL ceFAZolin Sodium (ANCEF) injection 2 g 2 g ketorolac 30mg/mL 15 mg lactated ringers infusion 1,600 mL Agents Name NO HELIOX O2 N2O Air Exp Sevoflurane Exp Isoflurane Exp Desflurane Exp N2O O2 Delivery Device Ins Sevoflurane Ins Isoflurane Ins Desflurane O2 Auxiliary Blood No blood administrations on file. Lines, Drains, and Airways Type Details Placement Removal Incision/Surgical Site 01/07/22; 1444; 01/07/22 1444 by Right; Hip Elizabeth Childers RN Incision/Surgical Site 01/07/22; 1444; 01/07/22 1444 by Right; Leg Elizabeth Childers RN Peripheral IV 01/07/22; 1215; 18 01/07/22 1215 by 01/08/22 132 9 by G; Anterior, Left; Wendy Gregg, Nurse Lower forearm M, RN documented in this encounter Social History Tobacco [...] have Coronavirus/COVID-19? documented as of this encounter OR Notes Anesthesia Postprocedure Evaluation - Hector Castillo MD - 01/07/2022 4:40 PM CDT Patient: Hector Norris Procedure: Procedure(s): PROPHYLACTIC INTRAMEDULLARY NAILING OF RIGHT HIP Anesthesia Type: Spinal Note: Postop Pain Control: Uneventful Sign Out: Well controlled pain PONV: No Neuro/Psych: Uneventful Sign Out: Acceptable/Baseline neuro status Airway/Respiratory: Uneventful Sign Out: Acceptable/Baseline resp. status CV/Hemodynamics: Uneventful Sign Out: Acceptable CV status; No obvious hypovolemia; No obvious fluid overload Other NRE: NONE DID A NON-ROUTINE EVENT OCCUR? No Last vitals: Vitals Value Taken Time BP 123/71 01/07/22 1631 Temp 36.9 ??C (98.4 ??F) 01/07/22 1630 Pulse 63 01/07/22 1631 Resp 22 01/07/22 1631 SpO2 92 % 01/07/22 1631 Vitals shown include unvalidated device data. Electronically Signed By: Hector Castillo MD January 07, 2022 4:40 PM Anesthesia Procedure Notes - Coleman Oneill MD - 01/07/2022 2:11 PM CDT Associated Order(s): Spinal Block Intrathecal injection Procedure Note Pre-Procedure Staff - Anesthesiologist: Coleman Oneill MD Performed By: anesthesiologist Location: OR Procedure Start/Stop Times: 01/07/2022 2:05 PM and 01/07/2022 2:08 PM Pre-Anesthestic Checklist: patient identified, IV checked, risks and benefits discussed, informed consent, monitors and equipment checked, pre-op evaluation, at physician/surgeon's request and post-oppain management Timeout: Correct Patient: Yes Correct Procedure: Yes Correct Site: Yes Correct Position: Yes Procedure Documentation Procedure: intrathecal injection Patient Position: sitting Skin prep: Chloraprep Insertion Site: L4-5, L3-4. (right paramedian approach). Needle Gauge: 24. Needle Length (Inches): 3.5 Spinal Needle Type: Pencan Introducer used # of attempts: 1 and # of redirects: Assessment/Narrative Paresthesias: No. CSF fluid: clear. Medication(s) Administered Medication Administration Time: 01/07/2022 2:05 PM Anesthesia Preprocedure Evaluation - Hector Castillo MD - 01/07/2022 12:36 PM CDT Anesthesia Pre-Procedure Evaluation Patient: Hector Norris : 1960 Procedure : Procedure(s): PROPHYLACTIC INTRAMEDULLARY NAILING OF RIGHT HIP History reviewed. No pertinent past medical history. History reviewed. No pertinent surgical history. No Known Allergies Social History Tobacco Use ??? Smoking status: Former Smoker ??? Smokeless tobacco: Never Used Substance Use Topics ??? Alcohol use: Yes Wt Readings from Last 1 Encounters: 01/05/22 77.1 kg (170 lb) Anesthesia Evaluation Pt has had prior anesthetic. No history of anesthetic complications ROS/MED HX ENT/Pulmonary: Comment: Metastatic lung cancer Neurologic: Comment: Hx of L3-4 fusion per patient Cardiovascular: Comment: Admitted with pericarditis in late October, treated with NSAIDs, resolved METS/Exercise Tolerance: Hematologic: (+) anemia, Musculoskeletal: Comment: Pathologic femur fracture (+) arthritis (RA), GI/Hepatic: Comment: Gilbert syndrome Renal/Genitourinary: Comment: Hx of prostate cancer Endo: - neg endo ROS Psychiatric/Substance Use: Infectious Disease: Malignancy: Other: Physical Exam Airway Mallampati: II TM distance: > 3 FB Neck ROM: full Mouth opening: > 3 cm Respiratory Devices and Support Dental Comment: Fair dentition Cardiovascular Rhythm and rate: regular and normal Pulmonary breath sounds clear to auscultation OUTSIDE LABS: CBC: Lab Results Component Value Date WBC 13.2 (H) 01/07/2022 HGB 12.0 (L) 01/07/2022 HCT 36.0 (L) 01/07/2022 PLT 417 01/07/2022 BMP: No results found for: NA, POTASSIUM, CHLORIDE, CO2, BUN, CR, GLC COAGS: No results found for: PTT, INR, FIBR POC: No results found for: BGM, HCG, HCGS HEPATIC: No results found for: ALBUMIN, PROTTOTAL, ALT, AST, GGT, ALKPHOS, BILITOTAL, BILIDIRECT, ARTEMIO OTHER: No results found for: PH, LACT, A1C, YEFRI, PHOS, MAG, LIPASE, AMYLASE, TSH, T4, T3, CRP, SED Anesthesia Plan ASA Status: 4 NPO Status: NPO Appropriate Anesthesia Type: Spinal. Consents Anesthesia Plan(s) and associated risks, benefits, and realistic alternatives discussed. Questions answered and patient/billing customer service representative(s) expressed understanding. - Discussed: Risks, Benefits and Alternatives for BOTH SEDATION and the PROCEDURE were discussed - Discussed with: Patient, Spouse Postoperative Care Pain management: Peripheral nerve block (Single Shot), IV analgesics, Oral pain medications, Multi-modal analgesia. PONV prophylaxis: Ondansetron (or other 5HT-3), Dexamethasone or Solumedrol Comments: Other Comments: Discussed spinal vs GA with pt and . Pt aware that spinal may be difficult due to prior fusion. Pt prefers spinal. Fascia iliaca block for postop pain. Hector Castillo MD documented in this encounter Miscellaneous Notes Anesthesia Care Transfer Note - Angelica PadillaLAN high GRAVURE PRINTING MACHINIST - 01/07/2022 4:05 PM CDT Patient: Hector Norris Procedure: Procedure(s): PROPHYLACTIC INTRAMEDULLARY NAILING OF RIGHT HIP Diagnosis: Lung cancer metastatic to bone (H) [C34.90, C79.51] Lesion of femur [M89.9] Diagnosis Additional Information: No value filed. Anesthesia Type: Spinal Note: Oropharynx: oropharynx clear of all foreign objects and spontaneously breathing Level of Consciousness: awake Oxygen Supplementation: face mask Level of Supplemental Oxygen (L/min / FiO2): 6 Independent Airway: airway patency satisfactory and stable Dentition: dentition unchanged Vital Signs Stable: post-procedure vital signs reviewed and stable Report to RN Given: handoff report given Patient transferred to: PACU Handoff Report: Identifed the Patient, Identified the Reponsible Provider, Reviewed the pertinent medical history, Discussed the surgical course, Reviewed Intra-OP anesthesia mangement and issues during anesthesia, Set expectations for post-procedure period and Allowed opportunity for questions and acknowledgement of understanding Vitals: Vitals Value Taken Time BP 109/68 01/07/22 1600 Temp 37.6 ??C (99.6 ??F) 01/07/22 1600 Pulse 57 01/07/22 1603 Resp 18 01/07/22 1603 SpO2 100 % 01/07/22 1603 Vitals shown include unvalidated device data. Electronically Signed By: Vandana Padilla APRN CRNA January 07, 2022 4:05 PM documented in this encounter Plan of Treatment Not on filedocumented as of this encounter Procedures Procedure Name Priority Date/Time Associated Diagnosis Comme nts ANE SPINAL BLOCK Routine 01/07/2022 2:05 PM Resul ts for this FORM CDT procedure are i n the results section. documented in this encounter Results Spinal Block (01/07/2022 2:05 PM CDT) Narrative [...] Administration Time: 2:05 PM Coleman Oneill MD [place] ANESTHESIA documented in this encounter Visit Diagnoses Not on filedocumented in this encounter Administered Medications Inactive Administered Medications - up to 3 most recent administrations Medication Order MAR Action Action Date Dose Rate Site bupivacaine 0.75% in dextrose Given 01/07/2022 2:06 PM CDT 1.8 m Ls 8.25% (intrathecal) (SENSORCAINE) 0.75-8.25 % injection Intrathecal, PRN, Starting on Komal 01/07/22 at 1406, Anesthesia Intra-op ceFAZolin Sodium (ANCEF) injection 2 g Given 01/07/2022 2:00 PM CDT 2 g Routine, 2 g, Intravenous, PRE-OP/PRE-PROCEDURE, Starting on Komal 01/07/22 at 1203, For 1 dose, Give first dose within 1 hour PRIOR to incision. If patient weight is greater than or equal to 120 kg increase dose to 3 g., Indications: Perioperative Pharmacoprophylaxis, Pre-procedure dexamethasone PF (DECADRON) injection Given 01/07/2022 2:11 PM CDT 10 mg Intravenous, PRN, Administer over 1 Minutes, Starting on Komal 01/07/22 at 1411, Anesthesia Intra-op fentaNYL (PF) (SUBLIMAZE) injection Given 01/07/2022 2:02 PM CDT 100 mcg Intravenous, PRN, Administer over 3-5 Minutes, Starting on Komal 01/07/22 at 1402, Anesthesia Intra-op ketamine (KETALAR) injection Given 01/07/2022 2:12 PM CDT 20 mg Intravenous, PRN, Administer over 2-5 Minutes, Starting on Komal 01/07/22 at 1412, Anesthesia Intra-op ketorolac (TORADOL) injection Given 01/07/2022 3:39 PM CDT 15 mg Intravenous, PRN, Administer over 2 Minutes, Starting on Komal 01/07/22 at 1539, Anesthesia Intra-op lactated ringers infusion New Bag 01/07/2022 3:02 PM CDT at 100 mL/hr, Intravenous, CONTINUOUS, Pre-procedure, Starting on Komal 01/07/22 at 1230, Until Komal 01/07/22 at 1558 New Bag 01/07/2022 12:20 PM CDT 100 mL/hr midazolam (VERSED) injection Given 01/07/2022 2:00 PM CDT 2 mg Intravenous, Administer over 2 Minutes, PRN, Starting on Komal 01/07/22 at 1400, Anesthesia Intra-op ondansetron (ZOFRAN) injection Given 01/07/2022 2:37 PM CDT 4 mg Intravenous, PRN, Administer over 2-5 Minutes, Starting on Komal 01/07/22 at 1437, Anesthesia Intra-op phenylephrine 0.1 mg/mL Rate/Dose 01/07/2022 0.4 mcg/kg/min 18.504 infusion (mcg/kg/min) Change 3:16 PM CDT mL/hr Intravenous, CONTINUOUS PRN, Starting on Komal 01/07/22 at 1411, Anesthesia Intra-op New Bag 01/07/2022 2:11 PM CDT 0.5 mcg/kg/min 23.13 mL/hr propofol (DIPRIVAN) Rate/Dose Change 01/07/2022 3:39 50 mcg/kg/min 23 .13 mL/hr injection 10 mg/mL vial PM CDT Intravenous, PRN, Starting on Komal 01/07/22 at 1403, Anesthesia Intra-op Rate/Dose Change 01/07/2022 2:42 PM CDT 60 mcg/kg/min 27.756 mL/hr New Bag 01/07/2022 2:11 PM CDT 70 mcg/kg/min 32.382 mL/hr documented in this encounter Care Teams Acid Filler Relationship Specialty Start Date End Date Tin Hernandez PCP - General Family Medicine 01/06/[address] [place] [address] documented as of this encounter
--- OUTSIDE RECORDS SUMMARY | 2022-02-01 13:13 | XMS_ITS | Clinical Summary ---
:1960 Author Organization [facility] Address [address] [place] [address] Care Team Providers Name Role Phone Unavailable Primary Care Provider Unavailable Source Comments Patient records contain information from all sites at [facility]. For routine questions regarding patient records, call [phone] during business hours, M-F 8:00 AM - 5:00 PM Central Time. Record requests for emergency care only can be directed to [phone] at any time.[facility] Allergies No known active allergies Medications Medication Sig Dispensed Refills Start Date End Date Status codeine-guaiFENesin Take 10 mL by 0 08/05/2021 Active (ROBITUSSIN-AC) 10-100 mouth. mg/5 mL liquid escitalopram (LEXAPRO) Take 10 mg by 0 08/06/2021 Active 10 mg tablet mouth. omeprazole (PriLOSEC) omeprazole 40 mg capsule,delayed release 0 06/23/[address] capsule TAKE ONE CAPSULE BY MOUTH ONCE DAILY before a meal tadalafiL (CIALIS, tadalafil 20 mg tablet 0 Active ADCIRCA) 20 mg tablet TAKE ONE TABLET BY MOUTH NEEDED TIMED AROUND SEXUAL ACTIVITY benzonatate (TESSALON) 0 09/02/2021 Active 200 mg capsule prochlorperazine Take 1 tablet (10 30 tablet 3 09/10/202108/23 Active (COMPAZINE) 10 mg mg total) by mouth 3 tabletIndications: every 6 (six) Malignant Neoplasm Of hours as needed Right Main Bronchus for nausea or (HCC) vomiting (unrelieved by ondansetron). ondansetron (ZOFRAN) 8 Take 1 tablet (8 30 tablet 3 09/10/2021 Active mg tabletIndications: mg total) by mouth 3 Malignant Neoplasm Of every 8 (eight) Right Main Bronchus hours as needed (HCC) for nausea or vomiting. folic acid 400 mcg Take 1 tablet (400 100 tablet 3 09/10/2021 Active tabletIndications: mcg total) by Malignant Neoplasm Of mouth daily. Begin Right Main Bronchus 7 days before (HCC) PEMEtrexed and continue until 3 weeks after last dose of PEMEtrexed. albuterol 90 Inhale 2 puffs. 0 11/20/2021 Active mcg/actuation inhaler aspirin-acetaminophen- Take 1 tablet by 0 Active caffeine (EXCEDRIN mouth. MIGRAINE) 250-250-65 mg per tablet dilTIAZem CD (CARDIZEM 0 11/19/2021 Active CD/CARTIA XT) 180 mg 24 hr capsule pantoprazole Take 40 mg by 0 11/20/2021 Ac tive (PROTONIX) 40 mg EC mouth. tablet ipratropium-albuteroL Inhale 3 mL by 180 mL 11 11/23/2021 Active (DUONEB) 0.5-2.5 mg/3 nebulization every mL nebulizer solution 6 (six) hours as needed for wheezing. hydrOXYzine (ATARAX) Take 25 mg by 0 01/07/2022 Active 25 mg tablet mouth as needed. oxyCODONE (ROXICODONE) Take 5-10 mg by 0 12/29/2021 Active 5 mg immediate release mouth daily. tablet rivaroxaban (XARELTO) Take 1 tablet by 0 01/07/2022 Active 10 mg tablet mouth daily. ondansetron (ZOFRAN) 8 Take 8 mg by mouth 0 09/11/19 22 Active mg tablet as needed. escitalopram (LEXAPRO) Take 10 mg by 0 08/06/2021 Active 10 mg tablet mouth daily. codeine-guaiFENesin Take 10 mL by 0 12/23/2021 Active (ROBITUSSIN-AC) 10-100 mouth as needed. mg/5 mL liquid albuterol 90 Inhale 2 puffs as 0 11/20/2021 Active mcg/actuation inhaler needed. 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 2021: Stage IIIC (cT4, cN3, cM0) - Unsigned Encounters Date Type Specialty Care Team Description 01/27/2022 Hospital Encounter Radiation Aidee Sanchez Oncology Tj Covarrubias 01/26/2022 Hospital Encounter Radiation Aidee Sanchez Oncology Tj Covarrubias 01/26/2022 Hospital Encounter Radiation Lillian Sancheza Malign ant Neoplasm Of Lung Middle Lobe Or Bronchus (HCC); Oncology Tj Covarrubias Secondary Malig nant Neoplasm Bone (HCC) 01/25/2022 Hospital Encounter Radiation Aidee Sanchez Oncology Tj Covarrubias 01/22/2022 Hospital Encounter Radiation Aidee Sanchez Oncology Tj Covarrubias 01/21/2022 Hospital Encounter Radiation Aidee Sanchez Oncology Tj Covarrubias 01/15/2022 Hospital Encounter Radiation Aidee Sanchez Malign ant Neoplasm Of Lung Middle Lobe Or Bronchus (HCC); Oncology Tj Covarrubias Secondary Malig nant Neoplasm Bone (HCC) 01/15/2022 - Hospital Encounter Radiation Aidee Sanchez Malign ant Neoplasm Of Lung Middle Lobe Or Bronchus (HCC) (Primary Dx); 01/16/2022 Oncology Tj Covarrubias Secondary Malig nant Neoplasm Bone (HCC) 12/09/2021 Clinical Radiation Aidee Sanchez Follow-up Communication Oncology Tj Covarrubias 11/24/2021 Hospital Encounter Radiation Aidee Sanchez M.D. 11/24/2021 - Hospital Encounter Radiation [place] Malign ant Neoplasm 12/18/2021 Oncology Tj Childress Of Right Main Bronchus (HCC) 11/24/2021 Documentation Radiation Aidee Sanchez Oncology Tj Covarrubias 11/23/2021 Hospital Encounter Radiation Aidee Sanchez Oncology Tj Covarrubias 11/23/2021 Hospital Encounter Radiation Behzad Los Malign ant Neoplasm Oncology Tj Childress Of Right Main Bronchus (HCC) 11/19/2021 Clinical Radiation Aidee Sanchez Communication Oncology Tj Covarrubias 11/19/2021 Orders Only Radiation Aidee Sanchez Oncology Tj Covarrubias 11/19/2021 Patient Outreach Oncology Keith morrisMonster Urbano, RAllenNAllen, CAllenMAllenSAllenRAllenNAllen 11/18/2021 Clinical Radiation Aidee Sanchez Communication Oncology Tj Covarrubias 11/17/2021 Clinical Radiation Aidee Sanchez Communication Oncology Tj Covarrubias 11/16/2021 Hospital Encounter Radiation [place] M.D. Garces, Yolanda I., M.D. 11/13/2021 Hospital Encounter Radiation [place] M.D. Garces, Yolanda I., M.D. 11/12/2021 Hospital Encounter Radiation [place] M.D. Garces, Yolanda I., M.D. 11/11/2021 Hospital Encounter Radiation [place] M.D. 11/05/2021 Hospital Encounter Radiation Aidee Sanchez Malign ant Neoplasm Oncology Tj Covarrubias Of Right Main [place] Bronchus (HC C) Tj Childress 11/05/2021 Hospital Encounter Radiation [place] Malign ant Neoplasm Oncology Tj Childress Of Lung Middle Lobe Or Bronchus (HC C) (Primary Dx) 11/03/2021 Orders Only Radiation Aidee Sanchez Malignant Ne oplasm Oncology Tj Covarrubias Of Right Main Bronchus (HCC) (Primary Dx) from Last 3 Months Family History Medical History Relation Name Comments Lung cancer Father Prostate cancer Father Relation Name Status Comments Father Social History Tobacco Use Types Packs/Day Years Used Date Smoking Tobacco: Former Cigarettes 1 46 1975 - 08/27/2021 Smokeless Tobacco: Never Alcohol Use Standard Drinks/Week Comments Not Currently 0 (1 standard drink = 0.6 oz pure alcoho l) Alcohol Habits Answer Date Recorded How often do you have a drink containing alcohol? 2-4 times a month 08/23/2021 How many drinks containing alcohol do you have on a 3 or 4 08/23/2021 typical day when you are drinking? How often do you have six or more drinks on one Less than mo nthly 08/23/2021 occasion? Comment: Not asked Social Isolation Answer Date Recorded In a typical week, how many times do you More than three los es a week 08/23/2021 talk on the phone with family, friends, or neighbors? How often do you get together with friends Once a week 08/23/2021 or relatives? How often do you attend presybeterian or Never 2021 episcopalian services? Do you belong to any clubs or No 08/23/2021 organizations such as presybeterian groups, unions, fraternal or athletic groups, or school groups? How often do you attend meetings of the Never 08/23/2021 clubs or organizations you belong to? Are you now , , , 08/23/2021 , never or living with a partner? Physical Activity Answer Date Recorded On average, how many days per week do you engage in moderate to 5 days 08/23/2021 strenuous exercise (like walking fast, running, jogging, dancing, swimming, biking, or other activities that cause a light or heavy sweat)? On average, how many minutes do you engage in exercise at th is 60 min 08/23/2021 level? Stress Answer Date Recorded Do you feel stress - tense, restless, nervous, or Only a lit tle 08/23/2021 anxious, or unable to sleep at night because your mind is troubled all the time - these days? Intimate Partner Violence Answer Date Recorded Within the last year, have you been afraid of your partner o r No 08/23/2021 ex-partner? Within the last year, have you been humiliated or emotionall y No 08/23/2021 abused in other ways by your partner or ex-partner? Within the last year, have you been kicked, hit, slapped, or No 08/23/2021 otherwise physically hurt by your partner or ex-partner? Within the last year, have you been raped or forced to have any No 08/23/2021 kind of sexual activity by your partner or ex-partner? Transportation Needs Answer Date Recorded In the past 12 months, has lack of transportation kept you f rom No 08/23/2021 medical appointments or from getting medications? In the past 12 months, has lack of transportation kept you f rom No 08/23/2021 meetings, work, or getting things needed for daily living? Housing Stability Answer Date Recorded In the last 12 months, was there a time when you were Patien t refused 08/23/2021 not able to pay the mortgage or rent on time? In the last 12 months, how many places have you lived? 1 08/23/2021 In the last 12 months, was there a time when you did No 08/23/[address]21 [address] to sleep or slept in a care home (including now)? Education Answer Date Recorded What is the highest level of school Associate degree: julieta arreaga, 08/23/2021 you have completed or the highest technical, or vocational p christ degree you have received? Sex Assigned at Date Recorded Male 08/23/2021 10:27 AM CDT Last Filed Vital Signs Vital Sign Reading Time Taken Comments Blood Pressure 118/71 01/26/2022 3:24 PM CDT Pulse 94 01/15/2022 11:01 AM CDT Temperature 36.7 ??C (98.1 ??F) 01/26/2022 3:24 PM CDT Respiratory Rate 16 09/15/2021 7:46 AM CDT Oxygen Saturation 97% 11/05/2021 10:15 AM CDT walkin g Inhaled Oxygen Concentration - - Weight 76 kg (167 lb 8.8 oz) 01/26/2022 3:24 PM CDT Height 164.1 cm (5' 4.61) 09/15/2021 7:46 AM CDT Body Mass Index 28.22 09/15/2021 7:46 AM CDT Plan of Treatment Health Maintenance Due Date Last Done Comments CT Colonography 1960 Cologuard 1960 Colonoscopy 1960 Colorectal Cancer Screening 1960 FIT 1960 HIV Screening 1960 Hepatitis C Screening 1960 Pneumococcal vaccine (0-64 years) 1966 (1 - PCV) Zoster Vaccines (1 of 2) 1979 Depression Screening (Annual 04/25/2021 PHQ-2) COVID-19 Vaccine (4 - Booster for 06/08/2021 04/13/2021, , Pfizer series) 09/03/2020 Influenza Vaccine (#1) 2022 02/12/2021, 01/27/2020, 02/26/2019, Additional history exists Lipid (Cholesterol) Screening 10/05/2022 10/05/2017 Fasting Glucose for Diabetes 09/15/2024 09/15/2021, 022, Screening 03/05/2021, Additional history exists DTaP,Tdap,and Td Vaccines (3 - Td 03/05/2031 03/05/2021, or Tdap) Medical Devices Implanted Type Area Mold Maker Apprentice Device Shelf Model / Identifier Expiration Serial / Date Lot Hardware E.G. Hardware e.g. Back Pins/Screws/Ro pins/screws/r ds ods Description: Pins in lower back. Knee Implant Knee Implant Knee Procedures Procedure Name Priority Date/Time Associated Comments Diagnosis [facility] DAILY TREATMENT Routine 01/27/2022 3:15 PM R esults for this INFORMATION CDT procedure are i n the results section. [facility] DAILY TREATMENT Routine 01/26/2022 4:23 PM R esults for this INFORMATION CDT procedure are i n the results section. [facility] Rout[facility] 01/25/2022 10:21 Res ults for this INFORMATION AM CDT procedure are i n the results section. [facility] Routine 01/22/2022 10:05 Res ults for this INFORMATION AM CDT procedure are i n the results section. [facility] Routine 01/21/2022 1:30 PM R esults for this INFORMATION CDT procedure are i n the results section. [facility] COURSE COMPLETE Routine 01/21/2022 10:49 Res ults for this TREATMENT INFORMATION AM CDT proced ure are in the results section. INITIAL RAD ONC Routine 01/15/2022 12:00 Malignant Neoplasm Re sults for this TREATMENT PLANNING CT PM CDT Of Lung Middle Lobe procedure are in SIMULATION Or Bronchus (HCC ) the results Secondary Malignant section. Neoplasm Bone (HCC) OUTSIDE DX SKELETAL Routine 12/29/2021 12:10 Resu lts for this PM CDT procedure are i n the results section. OUTSIDE NM PET Routine 12/24/2021 4:15 PM Results for this CDT procedure are i n the results section. ARIA COURSE COMPLETE Routine 11/24/2021 1:21 PM R esults for this TREATMENT INFORMATION CDT proced ure are in the results section. [facility] DAILY TREATMENT Routine 11/24/2021 1:21 PM R esults for this INFORMATION CDT procedure are i n the results section. [facility] DAILY TREATMENT Routine 11/23/2021 11:02 Res ults for this INFORMATION AM CDT procedure are i n the results section. OUTSIDE CT BODY Routine 11/17/2021 3:20 AM Result s for this CDT procedure are i n the results section. OUTSIDE DX CHEST Routine 11/17/2021 1:15 AM Resul ts for this CDT procedure are i n the results section. [facility] DAILY TREATMENT Routine 11/16/2021 1:54 PM R esults for this INFORMATION CDT procedure are i n the results section. [facility] DAILY TREATMENT Routine 11/13/2021 9:53 AM R esults for this INFORMATION CDT procedure are i n the results section. [facility] DAILY TREATMENT Routine 11/12/2021 1:59 PM R esults for this INFORMATION CDT procedure are i n the results section. [facility] DAILY TREATMENT Routine 11/11/2021 10:00 Res ults for this INFORMATION AM CDT procedure are i n the results section. [facility]A COURSE COMPLETE Routine 11/11/2021 8:33 AM R esults for this TREATMENT INFORMATION CDT proced ure are in the results section. INITIAL RAD ONC Routine 11/05/2021 11:03 Malignant Neoplasm Re sults for this TREATMENT PLANNING CT AM CDT Of Right Main proce dure are in SIMULATION Bronchus (HCC) the results section. from Last 3 Months Results Aria Daily Treatment Information (01/27/2022 3:15 PM CDT)Only the most recent of 11 resultswithin the time period is included. [facility] gist Method Time Signature Course ID [id number] BANEGAS ARIA e Course Start 01/15/2022 BANEGAS ARIA Date 12:13 CDT First Treatment 01/21/2022 BANEGAS ARIA Date 12:57 CDT Last Treatment 01/27/2022 BANEGAS ARIA Date 15:15 CDT Treatment 6 BANEGAS ARIA Elapsed Days Reference Point [id number] BANEGAS ARIA Lscap Dosage Given to 1999 BANEGAS ARIA Date cGy Session Dosage 400 BANEGAS ARIA Given Reference Point [id number] BANEGAS ARIA Rfemur Dosage Given to 1999 BANEGAS ARIA Date cGy Session Dosage 400 BANEGAS ARIA Given Plan ID [id number] ETNA ARIA Fractions 5 BANEGAS ARIA Treated to Date Planned Total 5 BANEGAS ARIA Fractions Prescribed Dose 400 BANEGAS ARIA Per Fraction Prescription 1999 BANEGAS ARIA Dose in cGy Plan Primary [id number] BANEGAS ARIA Reference Point Rfemur Plan ID [id number] BANEGAS ARIA Fractions 5 BANEGAS ARIA Treated to Date Planned Total 5 BANEGAS ARIA Fractions Prescribed Dose 400 BANEGAS ARIA Per Fraction Prescription 1999 BANEGAS ARIA Dose in cGy Plan Primary [id number] BANEGAS ARIA Reference Point Lscap Specimen (Source) Anatomical Collection Method Collection Time Re ceived Time Location / / Volume Laterality 01/27/2022 3:15 PM CDT Provider Not In System RADIATION ONCOLOGY ORDERABLE S Performing Organization Address City/State/ZIP Code Phon e Number MAKENZIE KEN BANEGAS ARIA na Aria Course Complete Treatment Information (01/21/2022 10:49 AM CDT)Only the most recent of3 resultswithin the time period is included. [facility] gist Method Time Signature Course ID [id number] BANEGAS ARIA Course Start 11/09/2021 BANEGAS ARIA Date 17:06 CDT Course End Date 01/21/2022 BANEGAS ARIA 10:49 CDT Reference Point icru Lscap B[facility]GAS ARIA Dosage Given to 0 B[facility]GAS ARIA Date cGy Reference Point icru BANEGAS ARIA rfemur Dosage Given to 0 BANEGAS ARIA Date cGy Plan ID [id number] [facility] Fractions 0 BANEGAS ARIA Treated to Date Planned Total 5 [facility]AS ARIA Fractions Prescribed Dose 409 BANEGAS ARIA Per Fraction Prescription 2042.5 BANEGAS ARIA Dose in cGy Plan Primary icru Lscap BANEGAS ARIA Reference Point Plan ID [id number] [facility] ARIA Fractions 0 BANEGAS ARIA Treated to Date Planned Total 5 [facility]GAS ARIA Fractions Prescribed Dose 413 BANEGAS ARIA Per Fraction Prescription 2066.3 BANEGAS ARIA Dose in cGy Plan Primary icru BANEGAS ARIA Reference Point rfemur Specimen (Source) Anatomical Collection Method Collection Time Re ceived Time Location / / Volume Laterality 01/21/2022 10:49 AM CDT Provider Not In System RADIATION ONCOLOGY ORDERABLE S Performing Organization Address City/State/ZIP Code Phon e Number MAKENZIE BANEGAS ARIA na Initial Rad Onc Treatment Planning CT Simulation (01/15/2022 12:00 PM CDT)Only the most recent of2 resultswithin the time period is included. Specimen (Source) Anatomical Location Collection Method / Collectio n Time Received Time / Laterality Volume Narrative ETNA SUELLEN - 01/15/2022 12:00 PM CDT Hayley Chang, RTT ? 01/15/2022 12:44 PM Initial Rad Onc Treatment Planning CT Si mulation Performed by: Aidee Sanchez M.D. Authorized by: Aidee Sanchez M.D. Aidee Sanchez M.D. RADIATION ONCOLOGY ORDERABLE S Performing Organization Address City/[facility]/ZIP Code Phon e Number ETNA SUELLEN ETNA SUELLEN na Hip - Pelvis/ 2 Views Rt-Outside Skeletal Xray (12/29/2021 12:10 PM CDT) Specimen (Source) Anatomical Location Collection Method / Collectio n Time Received Time / Laterality Volume Narrative [facility] - 12/31/2021 11:57 AM CDT This order has been created and auto-finalized to support the import of outside images. If available, original i nterpretation can be found on the Media Tab in Chart Review, in Document V iewer, or as an image in QREADS. If a re-interpretation or overread is re quired please follow defined workflow. ?? Provider Not In System IMG DIAGNOSTIC IMAGING [facility] Performing Organization Address City/[facility]/ZIP Code Phon e Number IIWA IIMS NA PET SKULL to MID THIGH-Outside NM Pet (12/24/2021 4:15 PM CDT) Specimen (Source) Anatomical Location Collection Method / Collectio n Time Received Time / Laterality Volume Narrative IIWA - 12/30/2021 3:27 PM CDT This order has been created and auto-finalized to support the import of outside images. If available, original i nterpretation can be found on the Media Tab in Chart Review, in Document V iewer, or as an image in QREADS. If a re-interpretation or overread is re quired please follow defined workflow. ?? Provider Not In System IMG NM PROCEDURES Performing Organization Address City/[facility]/ZIP Code Phon e Number IIMS IIMS NA CT CHEST W-Outside CT Body (11/17/2021 3:20 AM CDT) Specimen (Source) Anatomical Location Collection Method / Collectio n Time Received Time / Laterality Volume Narrative IIWA - 11/17/2021 12:23 PM CDT This order has been created and auto-finalized to support the import of outside images. If available, original i nterpretation can be found on the Media Tab in Chart Review, in Document V iewer, or as an image in QREADS. If a re-interpretation or overread is re quired please follow defined workflow. ?? Provider Not In System IMG CT PROCEDURES Performing Organization Address City/State/ZIP Code Phon e Number II II NA XR CHEST 2 VIEWS PA AND LATERAL-Outside Chest Xray (11/17/2021 1:15 AM CDT) Specimen (Source) Anatomical Location Collection Method / Collectio n Time Received Time / Laterality Volume Narrative IIMS - 11/17/2021 12:17 PM CDT This order has been created and auto-finalized to support the import of outside images. If available, original i nterpretation can be found on the Media Tab in Chart Review, in Document V iewer, or as an image in QREADS. If a re-interpretation or overread is re quired please follow defined workflow. ?? Provider Not In System IMG DIAGNOSTIC IMAGING PROCE DURES Performing Organization Address [facility]/ZIP Code Phon e Number TEE OLIVEIRA NA from Last 3 Months Insurance Payer Benefit Plan Subscriber ID Effective Phone Address Typ e / Group Dates MITCHELL MEDRANO [id number] 2021-Prese [phone] [address] Indemnity BHAVANA BATEMAN nt [address] [place] [address] MEDICARE MEDICARE A [id number] 2021-Prese [address] [place] [address]
--- OUTSIDE RECORDS SUMMARY | 2022-02-01 13:14 | XMS_ITS | Encounter Summary ---
:1960 Author Organization [facility] Address [address] [place] [address] Care Team Providers Name Role Phone Unavailable Primary Care Provider Unavailable Encounter Details Date Type Department Care Team Description 11/23/2021 Hospital Encounter Department of Radiation Delilah Sanchez I., Oncology in [facility] [address] [facility] [address] [place] [id number] [phone] Social History Tobacco Use Types Packs/Day Years [...] or relatives? How often do you attend mu-ism or Never 2021 quaker services? Do you belong to any clubs or No 08/23/2021 organizations such as mu-ism groups, unions, fraternal or athletic groups, or [...] place to sleep or slept in a [place] (including now)? Education Answer Date Recorded What is the highest level of school Associate degree: julieta arreaga, 08/23/2021 you have completed or the highest technical, or vocational [facility] degree you have received? Sex Assigned at Date Recorded Male 08/23/2021 10:27 AM CDT documented as of this encounter Medications at Time of Discharge Medication Sig Dispensed Refills Start Date End Date albuterol 90 Inhale 2 puffs. 0 11/20/2021 mcg/actuation inhaler albuterol 90 Inhale 2 puffs as 0 11/20/2021 mcg/actuation inhaler needed. [id number] Take 1 tablet by 0 ffeine (EXCEDRIN mouth. MIGRAINE) 250-250-65 mg per tablet benzonatate (TESSALON) 0 09/02/2021 200 mg capsule codeine-guaiFENesin Take 10 mL by mouth. 0 2021 (ROBITUSSIN-AC) 10-100 mg/5 mL liquid dilTIAZem CD (CARDIZEM 0 11/19/2021 CD/CARTIA XT) 180 mg 24 hr capsule escitalopram (LEXAPRO) Take 10 mg by mouth. 0 10 mg tablet escitalopram (LEXAPRO) Take 10 mg by mouth 0 07/24 10 mg tablet daily. folic acid 400 mcg Take 1 tablet (400 100 tablet 3 tabletIndications: mcg total) by mouth Malignant Neoplasm Of daily. Begin 7 days Right Main Bronchus before PEMEtrexed (HCC) and continue until 3 weeks after last dose of PEMEtrexed. ipratropium-albuteroL Inhale 3 mL by 180 mL 11 11/23/2021 (DUONEB) 0.5-2.5 mg/3 mL nebulization every 6 nebulizer solution (six) hours as needed for wheezing. omeprazole (PriLOSEC) 40 omeprazole 40 mg capsule,delayed release 0 06/23/[address] capsule TAKE ONE CAPSULE BY MOUTH ONCE DAILY before a meal ondansetron (ZOFRAN) 8 Take 1 tablet (8 mg 30 tablet 3 08/2309/10/2022 mg tabletIndications: total) by mouth Malignant Neoplasm Of every 8 (eight) Right Main Bronchus hours as needed for (HCC) nausea or vomiting. ondansetron (ZOFRAN) 8 Take 8 mg by mouth 0 09/10 mg tablet as needed. pantoprazole (PROTONIX) Take 40 mg by mouth. 0 40 mg EC tablet prochlorperazine Take 1 tablet (10 mg 30 tablet 3 2 09/10/2022 (COMPAZINE) 10 mg total) by mouth tabletIndications: every 6 (six) hours Malignant Neoplasm Of as needed for nausea Right Main Bronchus or vomiting (HCC) (unrelieved by ondansetron). tadalafiL (CIALIS, tadalafil 20 mg tablet 0 ADCIRCA) 20 mg tablet TAKE ONE TABLET BY MOUTH NEEDED TIMED AROUND SEXUAL ACTIVITY amoxicillin-pot Take 1 tablet by 0 11/19/202107/2021 clavulanate (AUGMENTIN) mouth. 875-125 mg per tablet colchicine (COLCRYS) 0.6 Take 0.6 mg by 0 022 12/19/2021 mg tablet mouth. dexAMETHasone (DECADRON) Take 1 tablet (4 mg 6 tablet 3 12/03/2021 4 mg tabletIndications: total) by mouth See Malignant Neoplasm Of Admin Instructions. Right Main Bronchus , two times per day (HCC) the day before, day of, and day after PEMEtrexed. diazePAM (VALIUM) 2 mg Take 1 mg by mouth. 0 10/2411/29/2021 tablet ibuprofen (ADVIL,MOTRIN) Take by mouth. 0 022 12/10/2021 200 mg tablet oxyCODONE (ROXICODONE) 5 Take 5-10 mg by 0 202111/25/2021 mg immediate release mouth. tablet documented as of this encounter Plan of Treatment Not on filedocumented as of this encounter Visit Diagnoses Not on filedocumented in this encounter
--- OUTSIDE RECORDS SUMMARY | 2022-02-01 13:14 | XMS_ITS | Encounter Summary ---
:1960 Author Organization 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 [facility] Procedures Initial Rad Onc Treatment Planning CT Simulation [address] [place] [address] Referral ID Status Reason Start Date Expiration Date Visits Requ ested Visits Authorized [id number] Closed 11/03/2021 11/03/2022 1 1 Encounter Details Date Type Department Care Team Description 11/05/2021 Hospital Encounter Department of Ryley Sanchez M.D. [address] [place] [phone] Malignant Neoplasm Radiation Oncology Los Wen M.D. [address] [place] [address] Of Right Main in [facility] (HCC ) [place] [address] [place] [address] Social History Tobacco Use Types Packs/Day Years [...] or relatives? How often do you attend muslim or Never 2021 pentecostal services? Do you belong to any clubs or No 08/23/2021 organizations such as muslim groups, unions, fraternal or athletic groups, or [...] place to sleep or slept in a group home (including now)? Education Answer Date Recorded What is the highest level of school Associate degree: julieta arreaga, 08/23/2021 you have completed or the highest technical, or vocational p hawkram degree you have received? Sex Assigned at Date Recorded Male 08/23/2021 10:27 AM CDT documented as of this encounter Medications at Time of Discharge Medication Sig Dispensed Refills Start Date End Date benzonatate (TESSALON) 0 09/02/2021 200 mg capsule codeine-guaiFENesin Take 10 mL by 0 08/05/2021 (ROBITUSSIN-AC) 10-100 mouth. mg/5 mL liquid escitalopram (LEXAPRO) 10 Take 10 mg by 0 022 mg tablet mouth. escitalopram (LEXAPRO) 10 Take 10 mg by mouth 0 0 08/06/2021 mg tablet daily. folic acid 400 mcg Take 1 tablet (400 100 tablet 3 tabletIndications: mcg total) by mouth Malignant Neoplasm Of daily. Begin 7 days Right Main Bronchus (HCC) before PEMEtrexed and continue until 3 weeks after last dose of PEMEtrexed. omeprazole (PriLOSEC) 40 omeprazole 40 mg capsule,delayed release 0 06/23/[address] capsule TAKE ONE CAPSULE BY MOUTH ONCE DAILY before a meal ondansetron (ZOFRAN) 8 mg Take 1 tablet (8 mg 30 tablet 3 0 09/10/2021 09/10/2022 tabletIndications: total) by mouth Malignant Neoplasm Of every 8 (eight) Right Main Bronchus (HCC) hours as needed for nausea or vomiting. ondansetron (ZOFRAN) 8 mg Take 8 mg by mouth 0 tablet as needed. prochlorperazine Take 1 tablet (10 30 tablet 3 09/10/2021 0 09/10/2022 (COMPAZINE) 10 mg mg total) by mouth tabletIndications: every 6 (six) hours Malignant Neoplasm Of as needed for Right Main Bronchus (HCC) nausea or vomiting (unrelieved by ondansetron). tadalafiL (CIALIS, tadalafil 20 mg tablet 0 ADCIRCA) 20 mg tablet TAKE ONE TABLET BY MOUTH NEEDED TIMED AROUND SEXUAL ACTIVITY dexAMETHasone (DECADRON) Take 1 tablet (4 mg 6 tablet 3 12/03/2021 4 mg tabletIndications: total) by mouth See Malignant Neoplasm Of Admin Instructions. Right Main Bronchus (HCC) , two times per day the day before, day of, and day after PEMEtrexed. 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 Authorized by: Aidee Sanchez M.D. Simulation was performed under physician supervision based on physician order in preparation for radiation therapy. Physician was immediately available to provide assistance and direction throughout the procedure. Written consent for treatment was completed or confirmed. The patient was appropriately identified and placed in the treatment position using the necessary immobilization to ensure a reproducible treatment position. Reference lee were placed to facilitate marking of isocenter. Area scanned:Chest Contrast used for the simulation procedure: None Patient position: Head first supine Custom immobilization: Vac-kaley Motion management: 4D CT scan Bolus: No CT guidance: Following positioning of the patient, a series of slices was obtained to be utilized intreatment planning. CT images were transferred to the [employer] treatment planning system, after a reference isocenter was determined and marked. Segmentation and treatment planning will take place priorto treatment delivery. Patient set up and imaging was appropriate and completed without incident. Bridge Gang Worker use:No documented in this encounter Plan of Treatment Not on filedocumented as of this encounter Procedures Procedure Name Priority Date/Time Associated Comments Diagnosis INITIAL RAD ONC Routine 11/05/2021 11:03 AM Malignant Neoplasm Results for this TREATMENT PLANNING CDT Of Right Main procedur e are in CT SIMULATION Bronchus (HCC) the results section. documented in this encounter Results Initial Rad Onc Treatment Planning CT Simulation (11/05/2021 11:03 AM CDT) Specimen (Source) Anatomical Location Collection Method / Collectio n Time Received Time / Laterality Volume Narrative [facility] - 11/05/2021 11:03 AM CDT Hayley Bergman, RTT ? 11/05/2021 11:03 AM Initial Rad Onc Treatment Planning CT Si mulation Date/Time: 11/05/2021 11:03 AM Performed by: Los Wen M.D. Authorized by: Aidee Sanchez M.D. Aidee Sanchez M.D. RADIATION ONCOLOGY ORDERABLE S Performing Organization Address City/State/ZIP Code Phon e Number [facility] na documented in this encounter Visit Diagnoses Diagnosis Malignant Neoplasm Of Right Main Bronchu s (HCC) documented in this encounter
--- OUTSIDE RECORDS SUMMARY | 2022-02-01 13:14 | XMS_ITS | Encounter Summary ---
:1960 Author Organization [facility] Address [address] [place] [address] Care Team Providers Name Role Phone Unavailable Primary Care Provider Unavailable Encounter Details Date Type Department Care Team Description 11/12/2021 Hospital Encounter Department of Radiation Los Flores M.D. [address] [place] [address] Oncology in [facility] Aidee Sanchez M.D. [address] [place] [address] [address] Social History Tobacco Use Types Packs/Day Years [...] do you attend muslim or Never 2021 evangelical services? Do you belong to any clubs [...] place to sleep or slept in a alf (including now)? Education Answer Date Recorded What [...] after PEMEtrexed. documented as of this encounter Plan of Treatment Not on filedocumented as of this encounter Visit Diagnoses Not on filedocumented in this encounter
--- OUTSIDE RECORDS SUMMARY | 2022-02-01 13:14 | XMS_ITS | Encounter Summary ---
:1960 Author Organization [facility] Address [address] [place] [address] Care Team Providers Name Role Phone Unavailable Primary Care Provider Unavailable Encounter Details Date Type Department Care Team Description 11/19/2021 Patient Outreach Department of Oncology [place] M.S.N., R.N., [address] [facility] [place] [phone] [phone] [place] [address] [place] [address] Social History Tobacco Use Types Packs/Day Years [...] or relatives? How often do you attend temple or Never 2021 yarsanism services? Do you belong to any clubs or No 08/23/2021 organizations such as temple groups, unions, fraternal or athletic groups, or [...] place to sleep or slept in a [facility] (including now)? Education Answer Date Recorded What is the highest level of school Associate degree: julieta arreaga, 08/23/2021 you have completed or the highest technical, or vocational p christ degree you have received? Sex Assigned at Date Recorded Male 08/23/2021 10:27 AM CDT documented as of this encounter Progress Notes Abel Reagan M.S.N., Janneth, C.M.S.R.N. - 11/19/2021 7:21 AM CDT TUMOR BOARD DOCUMENTATION A review of the patient's medical record was completed by the Oncology Nurse Navigator status post the multidisciplinary Lung Tumor Board meeting. Mr. Norris's case was presented by Dr. Major Sanchez from Radiation Oncology for treatment planning discussion. 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 Recommendations were to increase steroid dosage to hopefully mitigate pain. Electronically signed by: Monster Harry, Janneth, C.M.S.R.N. Oncology Nurse Navigator - Lung Service Line 11/19/21 7:24 AM CDT documented in this encounter Plan of Treatment Not on filedocumented as of this encounter Visit Diagnoses Diagnosis Malignant Neoplasm Of Lung Middle Lobe O r Bronchus (HCC) - Primary documented in this encounter
--- OUTSIDE RECORDS SUMMARY | 2022-02-01 13:14 | XMS_ITS | Encounter Summary ---
:1960 Author Organization [facility] Address [address] [place] [address] Care Team Providers Name Role Phone Unavailable Primary Care Provider Unavailable Reason for Referral Outpatient (Routine) - Authorized Specialty Diagnoses / Procedures Referred By Contact Refer red To Contact Radiation Oncology Aidee Sanchez [facility] Jey Spencer [address] [place] [address] Referral ID Status Reason Start Date Expiration Date Visits V isits Requested Authorized [id number] Authorized 01/15/2022 01/14/2025 10 10 Radiation Therapy (Routine) - Authorized Specialty Diagnoses / Procedures Referred By Contact Refer red To Contact Diagnoses 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 [facility] Jey Procedures Management Visit [address] [place] [address] Referral ID Status Reason Start Date Expiration Date Visits V isits Requested Authorized [id number] Authorized 01/15/2022 01/15/2023 10 10 Radiation Therapy (Routine) - Authorized Specialty Diagnoses / Procedures Referred By Contact Refer red To Contact Diagnoses 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 [facility] Procedures Prior Auth Rad Tx [place] RADTN [place] DEL >=1 MEV COMPLEX [address] [place], [place] [phone] Referral ID Status Reason Start Date Expiration Date Visits V isits Requested Authorized [id number] Authorized 01/25/2022 01/15/2023 5 5 Radiation Therapy (Routine) - Closed Specialty Diagnoses / Procedures Referred By Contact Refer red To Contact Diagnoses 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 [facility] Jey Procedures Initial Rad Onc Treatment Planning CT Simulation [address] [place] [phone] Referral ID Status Reason Start Date Expiration Date Visits Requ ested Visits Authorized [id number] Closed 01/15/2022 01/15/2023 1 1 Outpatient (Routine) - Closed Specialty Diagnoses / Procedures Referred By Contact Refer red To Contact Radiation Oncology Aidee Sanchez [facility] M[facility] [address] [place] [address] Referral ID Status Reason Start Date Expiration Date Visits Requ ested Visits Authorized [id number] Closed 11/19/2021 11/19/2022 1 1 Scheduling Instructions Coordinate for same day he sees Dr. Jeff bloom at [facility], thanks! Reason for Visit Outpatient (Routine) - Closed Specialty Diagnoses / Procedures Referred By Contact Refer red To Contact Radiation Oncology Aidee Sanchez [facility]anna M.D. [address] [place] [address] Referral ID Status Reason Start Date Expiration Date Visits Requ ested Visits Authorized [id number] Closed 11/19/2021 11/19/2022 1 1 Encounter Details Date Type Department Care Team Description 01/15/2022 - Hospital Encounter Department of Aidee Sanchez Neoplasm Of Lung Middle Lobe Or Bronchus (HCC) (Primary Dx); 01/16/2022 Radiation Oncology Tj Covarrubias Secondary Malignant Neoplasm Bone (HCC) in [place] [address] [place], [place] [address] [facility] [phone] [place], [place] [phone] (Work) [phone] Social History Tobacco Use Types Packs/Day Years [...] or relatives? How often do you attend mandaen or Never 2021 jew services? Do you belong to any clubs or No 08/23/2021 organizations such as mandaen groups, unions, fraternal or athletic groups, or [...] AM CDT documented as of this encounter Last Filed Vital Signs Vital Sign Reading Time Taken Comments Blood Pressure 136/76 01/15/2022 11:01 AM CDT Pulse 94 01/15/2022 11:01 AM CDT Temperature 36.8 ??C (98.2 ??F) 01/15/2022 11:01 AM CDT Respiratory Rate - - Oxygen Saturation - - Inhaled Oxygen Concentration - - Weight 76 kg (167 lb 8.8 oz) 01/15/2022 11:01 AM CDT Height - - Body Mass Index 28.22 09/15/2021 7:46 AM CDT documented in this encounter Medications at Time of Discharge Medication Sig Dispensed Refills Start Date End Date albuterol 90 Inhale 2 puffs. 0 11/20/2021 mcg/actuation inhaler albuterol 90 Inhale 2 puffs as 0 11/20/2021 mcg/actuation inhaler needed. jskpcqn-fgyxyftigtnjg-yz Take 1 tablet by 0 ffeine (EXCEDRIN mouth. MIGRAINE) 250-250-65 mg per tablet benzonatate (TESSALON) 0 09/02/2021 200 mg capsule codeine-guaiFENesin Take 10 mL by mouth. 0 2021 (ROBITUSSIN-AC) 10-100 mg/5 mL liquid codeine-guaiFENesin Take 10 mL by mouth 0 022 (ROBITUSSIN-AC) 10-100 as needed. mg/5 mL liquid dilTIAZem CD (CARDIZEM 0 11/19/2021 CD/CARTIA XT) 180 mg 24 hr capsule escitalopram (LEXAPRO) Take 10 mg by mouth. 0 10 mg tablet escitalopram (LEXAPRO) Take 10 mg by mouth 0 07/24 10 mg tablet daily. folic acid 400 mcg Take 1 tablet (400 100 tablet 3 2 tabletIndications: mcg total) by mouth Malignant Neoplasm Of daily. Begin 7 days Right Main Bronchus before PEMEtrexed (HCC) and continue until 3 weeks after last dose of PEMEtrexed. hydrOXYzine (ATARAX) 25 Take 25 mg by mouth 0 mg tablet as needed. ipratropium-albuteroL Inhale 3 mL by 180 mL [...] mouth 0 09/10 mg tablet as needed. oxyCODONE (ROXICODONE) 5 Take 5-10 mg by 0 2021 mg immediate release mouth daily. tablet pantoprazole (PROTONIX) Take 40 mg by mouth. 0 40 mg EC tablet prochlorperazine Take 1 tablet (10 mg 30 tablet 3 2 09/10/2022 (COMPAZINE) 10 mg total) by mouth tabletIndications: every 6 (six) hours Malignant Neoplasm Of as needed for nausea Right Main Bronchus or vomiting (HCC) (unrelieved by ondansetron). rivaroxaban (XARELTO) 10 Take 1 tablet by 0 01/07 mg tablet mouth daily. tadalafiL (CIALIS, tadalafil 20 mg tablet 0 ADCIRCA) 20 mg tablet TAKE ONE TABLET BY MOUTH NEEDED TIMED AROUND SEXUAL ACTIVITY documented as of this encounter Progress Notes Jazmin Mejias P.A.-C., M.S. - 01/15/2022 11:00 AM CDT SUBJECTIVE DIAGNOSIS 1. Malignant Neoplasm Of Lung Middle Lobe Or Bronchus (HCC) 2. Secondary Malignant Neoplasm Bone (HCC) SUPERVISED BY: Aidee Sanchez M.D. HISTORY OF PRESENT ILLNESS Mr. Hector Norris is a 61-year-old male with metastatic lung cancer. His oncologic history is as follows: Oncology History Malignant Neoplasm Of Lung Middle Lobe Or Bronchus (HCC) 06/04/2021 Imaging Chest Xray: mass-like appearance within the right parahilar region 07/31/[address]: -right hilar mass lesion that measures ~6.3 x 4.6 x 5.0 cm, with tumoral airway encasement resultingin mild postobstructive atelectasis; lesion abuts the mediastinal fat and parietal pericardium 08/13/2021 Imaging PET-CT: -lobulated 4.5 x 3.3 cm proximal RML FDG avid mass with some partial collapse of the RML -metastatic lymphadenopathy involving the right hilum, right supraclavicular fossa and mediastinum -possible involvement of the left pulmonary hilum 08/28/2021 Biopsy/Pathology Flexible bronchoscopy demonstrated that the right middle lobe had evidence of invasion at RC2. Lymph nodes were identified corresponding to station 4L measuring 7mm and 7 measuring 30 mm. Lymph node, station 7, EBUS-FNA: positive for metastatic adenocarcinoma Lung, RML bronchus, biopsy: positive for adenocarcinoma Lymph node station 4L negative. 08/28/2021 Genetic Testing and Tumor Genotyping [facility]STP: KRAS G12D Too few cells to evaluate PD-L1 expression. 09/10/2021 Imaging MR Brain - IMPRESSION: 1. No evidence of intracranial metastatic disease. 2. The previously described tiny enhancing areas most likely represent vascular lesions/vessels. 09/10/2021 Tumor Board Recommendations were to proceed with chemo/immuno systemic therapies upfront with three to four cycles prior to initiating radiation therapy to provide the best chance of delaying disease progression. 09/15/2021 - Chemotherapy 09/15/21: Cycle 1 pemetrexed and carboplatin administered at [facility] in [place]. 10/05/21: Cycle 2 pemetrexed, carboplatin, and pembrolizumab administered at [facility]. Pembrolizumab / PEMEtrexed / CARBOplatin Start Date: 09/15/2021 10/30/[address] scan of the chest demonstrated a large right perihilar mass measuring approximately 4.7 cm with spiculated margins. Narrowing of the interlobar artery without pulmonary embolism. Bronchovascular adenopathy extending along the right lower lobe bronchovascular tree. Narrowing of the right-sided airways with thickening of the bronchovascular structures extending into the right upper lobe and right middle lobe. Partial collapse of the right lung noted. Small right pleural effusion. Bulky mediastinaladenopathy involving the subcarinal and right paratracheal regions along with the precarinal region.Smaller lymph nodes in the prevascular space. The findings have progressed since the prior exam. Hyperdense exophytic cyst upper pole right kidney. No adrenal mass. No acute fracture. MRI brain demonstrated no pathologic intracranial enhancement to suggest metastatic disease. 11/11/2021 - 11/24/2021 Radiation Therapy Radiation Therapy Treatment Details (11/11/2021 - 11/24/2021) Site: Right Lung Technique: IMRT Goal: Palliative Planned Treatment Start Date: 11/11/2021 11/17/2021 Tumor Board Consensus was that patient's pain is likely due to a large inflammatory reaction status post radiation therapy. Recommendations were to increase steroid dosage to hopefully mitigate pain. 12/24/2021 Imaging PET-CT scan demonstrated multiple new tracer avid bone metastases including right proximal femur lesion with destruction of the anterior cortex. Additional bone metastases included the left scapula, left 12th rib, and sacrum. Tracer avid right supraclavicular lymph node metastases, increased from prior. Multiple new bilateral pulmonary nodules, likely metastases. Right hilar mass was decreased in size and uptake. Mediastinal lymph nodes were decreased in size and uptake. 12/29/2021 Imaging X-ray demonstrated a large permeative lesion in the subtrochanteric area of the right proximal femur. 12/31/2021 Tumor Board Tumor board discussion with recommendation for referral to Orthopedics for stabilization of the right femur prior to radiation therapy. Systemic treatment options post-radiation were discussed and recommendation was for docetaxel and ramicurimab. 01/07/2022 Surgery and Procedures Prophylactic intramedullary nailing of right hip was performed by Dr. Wayne Humphries. 01/25/2022 - Radiation Therapy Radiation Therapy Treatment Details (Noted on 01/15/2022) Sites: Left Bone - Scapula, Right Bone - Extremity - Long bone of lower extremity Technique: No technique specified Goal: Palliative Planned Treatment Start Date: 01/25/2022 INTERVAL HISTORY The patient was seen and examined today with Dr. Sanchez. The patient reports doing about the same overall. He reports experiencing right hip and upper leg pain which led to further evaluation which revealed a metastatic lesion in the right proximal femur. Hereports that the pain had been present for 6-7 months and was getting worse over time. He rates the pain as 7- 9/10 in severity. He proceeded to surgery for prophylactic intramedullary nailing and reports tolerating this well overall. His stain has started to improve following surgery. He is taking oxycodone 1 tablet every 4 hours which decreases the pain to 5/10 in severity. He also reports that his right leg flexibility is improving. He is ambulating with crutches. In addition, he reports sporadic abdominal pain across the entire abdomen since surgery. He reports that the pain feels like it is in the muscles. The pain is worse with positional changes or coughing. The pain has been stable since surgery. He denies any changes in the pain with regards to eating or bowel movements. He reports regular bowel movements. He reports normal urination. He denies increased gas or bloating. Another area of pain that the patient mentioned is his left shoulder. He reports that he has had pain in this area for 1.5-2 years and has had two failed rotator cuff surgeries. He reports that the pain in his left shoulder is as bad as the pain in his right leg. He reports shallow breathing and a constant clearing ofhis lungs. REVIEW OF SYSTEMS Review of systems was negative except as documented above. PATIENT REPORTED SYMPTOM SCREEN FATIGUE (Scale: 0 = no fatigue; 10 = worst fatigue you can imagine): 7-8 PAIN (Scale: 0 = no pain; 10 = worst pain you can imagine): 7-9 OVERALL QUALITY OF LIFE (Scale: 0 = as bad as can be; 10 = as good as can be): 4-6 OBJECTIVE BP 136/76 (BP Location: Left arm, Patient Position: Sitting, Cuff Size: Regular) Pulse 94 Temp 36.8 ??C (Temporal) Wt 76 kg BMI 28.22 kg/m?? PHYSICAL EXAM General: Patient is alert and oriented in no apparent distress. ASSESSMENT / PLAN #1 Stage IIIC (cT4 N3 M0) right middle lobe lung adenocarcinoma #2 Pemetrexed and carboplatin chemotherapy initiated on September 15, 2021, pembrolizumab added with cycle2 on October 05, 2021 #3 Grid therapy to the right lung tumor on November 11, 2021 with subsequent external beam radiotherapy from November 12 through November 24, 2021; break in treatment due to hospitalization #4 Admission to [facility] with postobstructive pneumonia from November 17, 2021 through November 19, 2021 #5 Prophylactic intramedullary nailing of right hip on January 07, 2022 #6 Left scapula metastasis with associated pain I had a detailed discussion with the patient today regarding his metastatic lung cancer. We reviewedthe oncologic history as detailed above since his last radiation treatment here. The patient had prophylactic intramedullary nailing of the right hip performed last week. He reports that he is he healing well overall following surgery and that his pain is improving. His surgical incision is still bandaged. He has a follow-up appointment with Dr. Humphries on January 19, 2022. We discussed the risks, benefits, and alternatives of post-operative radiotherapy in this setting. We discussed the recommendation for radiation treatment to the right proximal femur in 5 fractions. I discussed the logistics as well as the acute and chronic side effects of treatment in detail. The acute side effects are common and include fatigue, radiation dermatitis, and possible pain flare. Long-term side effects should be minimal, but could include increased risk of bone arthritis and bone fracture. His questions were answered to his verbalized satisfaction. During our discussion, the patient also reported left shoulder pain. Dr. Sanchez and I reviewed the patient's recent PET-CT imaging which also showed a lesion in the left scapula. Dr. Sanchez discussed the option of radiation therapy to the left scapula in 5 fractions as well today. Please see her attestation for details on their discussion. After discussion, the patient verbally expressed his desire to proceed with radiation treatment. He signed consent. He is scheduled for CT simulation today. We will plan to initiate radiation therapy on January 25, 2022, but discussed that the start date is pending surgical clearance and might need to moved to a later date. Following radiation therapy, the patient will have follow-up scheduled with [facility] Medical Oncology providers at the [facility] for discussion on next systemic therapy treatment options. The patient was provided with our contact information. He will contact us with questions or concerns. He verbally expressed his understanding of the plan. EDUCATION Ready to learn, no apparent learning barriers were identified; learning preferences include listening. Explained diagnosis and treatment plan; patient expressed understanding of the content. I personally spent 45 minutes in care of the patient today. Time includes both non face to face and face to face patient care. Signed by: Jazmin Mejias P.A.-C., M.SAllen 01/15/2022 12:27 PM CDT [facility] [address] [place], [place] [id number] Associated attestation - Aidee Sanchez M.D. - 01/15/2022 5:12 PM CDT RADIATION ONCOLOGY FOLLOW-UP VISIT I saw and evaluated the patient and participated in the hernandez portions of the service. I reviewed the documentation of Ms. Jazmin Mejias PA-C, and agree with the findings and plan. On exam he has mild pain over the shoulder and not necessarily along the left scapula to palpation. Mr. Norris is a very pleasant 61 year old male with metastatic non-small cell lung cancer who progressed through chemotherapy and then was treated with GRID followed by EBRT (20 Gy on 5 fractions) whichhe completed on November 24, 2021. He had a follow-up PET/CT that showed a femur metastasis that underwent ORIF on 01/07/2022. He had other metastases as well as progression in his right neck nodes that were not treated with EBRT. He has pain in his left shoulder which he isn't sure if this is his rotatorcuff chronic problem or not. He is recovering well from his right femur surgery and will see Dr. Humphries back on Tuesday. We discussed the findings above and below in this note. We discussed her treatment alternatives. We discussed EBRT to the right femur and also the left scapular lesion. We discussed the rationale, risks, side effects and goals of radiation therapy. 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 They understood and their questionswere answered. He wished to proceed with treatment. We tentatively plan on delivering 2000 cGy in 5 fractions starting January 25 (2 1/2 weeks from his surgery, we will not treat the incisions) or on February 01 (3 1/2 weeks from his surgery). He will check with Dr. Humphries on Tuesday as to which day he is okayed to start on. EDUCATION Ready to learn, no apparent learning barriers were identified; learning preferences include listening. Explained diagnosis and treatment plan; patient expressed understanding of the content. CONSENT Discussed the risks, benefits, alternatives, and the necessity of other members of the healthcare team participating in the procedure. All questions answered and consent given. DIAGNOSIS #1 Stage IIIC (cT4 N3 M0) right middle lobe lung adenocarcinoma #2 Pemetrexed and carboplatin chemotherapy initiated on September 15, 2021, pembrolizumab added with cycle2 on October 05, 2021 #3 Grid therapy to the right lung tumor on November 11, 2021 with subsequent external beam radiotherapy from November 12 through November 24, 2021; break in treatment due to hospitalization #4 Admission to [facility] with postobstructive pneumonia from November 17, 2021 through November 19, 2021 #5 Prophylactic intramedullary nailing of right hip on January 07, 2022 #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 01/15/2022 4:55 PM CDT Radiation Oncology [facility] [address] [place] [address] documented in this encounter Plan of Treatment Scheduled Orders Name Type Priority Associated Order Schedule Diagnoses Prior Auth Rad Tx Radiation Oncology Routine Malignant Neoplas m Ordered: 01/15/2022 Of Lung Middle Lobe Or Bronchus (HCC ) Secondary Malignant Neoplasm Bone (HCC) Management Visit Radiation Oncology Routine Malignant Neoplasm 10 Occurrences Of Lung Middle Lobe starting 01/15/2022 Or Bronchus (HCC ) until 01/15/2023 Secondary Malignant Neoplasm Bone (HCC) Scheduled Referrals Name Type Priority Associated Order Schedule Diagnoses Radiation Oncology Outpatient Referral Routine On ce for 1 office visit Occurrences sta rting (clinic) 01/15/2022 unti l 01/15/2022 Radiation Oncology Outpatient Referral Routine 10 Occurrences nurse visit starting 2021 (clinic) until 3 documented as of this encounter Results Initial Rad Onc Treatment Planning CT Simulation (01/15/2022 12:00 PM CDT) Specimen (Source) Anatomical Location Collection Method / Collectio n Time Received Time / Laterality Volume Narrative [facility]EE [facility] SUELLEN - 01/15/2022 12:00 PM CDT Hayley Chang, RTT ? 01/15/2022 12:44 PM Initial Rad Onc Treatment Planning CT Si mulation Performed by: Aidee Sanchez M.D. Authorized by: Aidee Sanchez M.D. Aidee Sanchez M.D. RADIATION ONCOLOGY ORDERABLE S Performing Organization Address City/State/ZIP Code Phon e Number [facility] documented in this encounter Visit Diagnoses Diagnosis Malignant Neoplasm Of Lung Middle Lobe O r Bronchus (HCC) - Primary Secondary Malignant Neoplasm Bone (HCC) Malignant Neoplasm Of Lung Middle Lobe O r Bronchus (HCC) Secondary Malignant Neoplasm Bone (HCC) documented in this encounter
--- OUTSIDE RECORDS SUMMARY | 2022-02-01 13:14 | XMS_ITS | Encounter Summary ---
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 [facility] Procedures Management Visit [address] [place], [place] [address] Referral ID Status Reason Start Date Expiration Date Visits V isits Requested Authorized [id number] Authorized 11/03/2021 11/03/2022 10 10 Encounter Details Date Type Department Care Team Description 11/23/2021 Hospital Encounter Department of Los Wen Neoplasm Radiation Oncology Tj Childress Of Right Main in [place], [address] [facility] Bronch (HCC) [place], [place] [address] [facility] [address] [place], [place] [phone] (Work) [phone] Social History Tobacco Use Types Packs/Day Years [...] or relatives? How often do you attend taoist or Never 2021 uatsdin services? Do you belong to any clubs or No 08/23/2021 organizations such as taoist groups, unions, fraternal or athletic groups, or [...] Sign Reading Time Taken Comments Blood Pressure 133/80 11/23/2021 10:10 AM CDT Pulse 59 11/23/2021 10:10 AM CDT Temperature 36.6 ??C (97.9 ??F) 11/23/2021 10:10 AM CDT Respiratory Rate - - Oxygen Saturation - - Inhaled Oxygen Concentration - - Weight 81.6 kg (179 lb 14.3 oz) 11/23/2021 10:10 AM CDT Height - - Body Mass Index 30.3 09/15/2021 7:46 AM CDT documented in this encounter Medications at Time of Discharge Medication Sig Dispensed Refills Start Date End Date albuterol 90 Inhale 2 puffs. 0 11/20/2021 mcg/actuation inhaler albuterol 90 Inhale 2 puffs as 0 11/20/2021 mcg/actuation inhaler needed. [id number] Take 1 tablet by 0 ffeine (EXCEDRIN [...] (COLCRYS) 0.6 Take 0.6 mg by 0 11/19/ 022 12/19/2021 mg tablet mouth. dexAMETHasone (DECADRON) [...] mouth. tablet documented as of this encounter Progress Notes Los Wen M.D. - 11/23/2021 10:15 AM CDT SUBJECTIVE REASON FOR VISIT Evaluation for side effects while receiving radiation treatment for 1. 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 Hector Norris is a 61 y.o. 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 Heis currently undergoing GRID followed by external beam radiotherapy Treatment Course: 1xLung Plan ID Fractions Dose / Fraction (cGy) Dose Treated (cGy) Dose Planned (cGy) First Treatment Last Treatment Elapsed Days [id number] 199911/11/2021 11/11/2021 0 [id number] 4 / 5 400 1600 199911/12/2021 11/23/2021 11 Course Summary 11/11/2021 11/23/2021 12 The patient reports he is feeling better since he was dismissed from the hospital though he does have ongoing issues with cough. The cough is typically nonproductive. There is no associated hemoptysis.He can have pain with prolonged cough and he feels like he can not get enough air when he coughs extensively. He was on dexamethasone 4 mg twice daily for 3 or 4 days while in the hospital but has beenoff it for the last few days. He cannot tell if his cough is worse off of dexamethasone or not. He does have a nebulizer at home but is not utilizing it yet. Also has prescription for an albuterol inhaler that he has not filled yet. He has Tessalon Perles at home but has not been using these. His cough is when he exerts himself. He has minimal cough at rest. He had tachycardia and chest pain that brought him in the emergency room and resulted in his hospitalization. This has resolved. PATIENT REPORTED SYMPTOM SCREEN FATIGUE (Scale: 0 = no fatigue; 10 = worst fatigue you can imagine): 6-7 PAIN (Scale: 0 = no pain; 10 = worst pain you can imagine): 3-4 OVERALL QUALITY OF LIFE (Scale: 0 = as bad as can be; 10 = as good as can be): 3 OBJECTIVE BP 133/80 (BP Location: Right arm, Patient Position: Sitting, Cuff Size: Small) Pulse (!) 59 Temp 36.6 ??C (Temporal) Wt 81.6 kg BMI 30.30 kg/m?? , Oxygen saturation was 98% on room air at restand dropped to 96-97% with ambulation PHYSICAL EXAM General: Alert and oriented in no apparent distress. He is here by himself. His is on the phone. He did cough for prolonged duration while I was with him. Lungs: Clear to auscultation bilaterally. Heart: Regular rate and rhythm. Normal S1-S2. No murmurs. ASSESSMENT / PLAN #1 Stage IIIC (cT4 N3 M0) right middle lobe lung adenocarcinoma #2 Pemetrexed and carboplatin chemotherapy initiated on September 15, 2021, pembrolizumab added with cycle2 on October 05, 2021 #3 Grade therapy to the right lung tumor on November 11, 2021 with subsequent external beam radiotherapyfrom November 12 through November 16, 2021 #4 Admission to [facility] with postobstructive pneumonia from November 17, 2021 through November 19, 2021 The patient is doing well enough today to resume therapy. I prescribed DuoNebs to be utilized 4 times daily. I also encouraged him to utilize his albuterol inhaler and Tessalon Perles. We will check onhim again tomorrow to see how well this is helping him with his cough. If he has persistent difficulty, I will likely restart dexamethasone. We will get him connected again over at [facility] and [facility] hopefully later this week. He understands that if he has recrudescence of his chest pain or tachycardia, he should present to the emergency room. The patient and his wifeverbalized satisfaction with this plan. Signed by: Los Wen M.D. 11/23/21 11:57 AM CDT [facility] [address] [place] [address] documented in this encounter Miscellaneous Notes Addendum Note - Sam Dejesus - 11/23/2021 10:15 AM CDT Encounter addended by: Sam Dejesus on: 11/23/2021 12:10 PM Actions taken: Letter saved documented in this encounter Plan of Treatment Scheduled Orders Name Type Priority Associated Diagnoses Order S chedule Management Visit Radiation Oncology Routine Malignant Neoplasm Once for [address] Bronchus (HCC) 11/23/2021 un til 11/23/2021 documented as of this encounter Visit Diagnoses Diagnosis Malignant Neoplasm Of Right Main Bronchu s (HCC) documented in this encounter
--- OUTSIDE RECORDS SUMMARY | 2022-02-01 13:14 | XMS_ITS | Encounter Summary ---
:1960 Author Organization [facility] Address [address] [place] [address] Care Team Providers Name Role Phone Unavailable Primary Care Provider Unavailable Encounter Details Date Type Department Care Team Description 01/26/2022 Hospital Encounter Department of Radiation Delilah Sanchez I., Oncology in [facility] [address] [facility] [address] [place] [phone] Social History Tobacco Use Types Packs/Day Years [...] or relatives? How often do you attend lutheran or Never 2021 rastafarian services? Do you belong to any clubs or No 08/23/2021 organizations such as lutheran groups, unions, fraternal or athletic groups, or [...] place to sleep or slept in a usp (including now)? Education Answer Date Recorded What is the highest level of school Associate degree: julieta arreaga, 08/23/2021 you have completed or the highest technical, or vocational gucci polo degree you have received? Sex Assigned at Date Recorded Male 08/23/2021 10:27 AM CDT documented as of this encounter Plan of Treatment Not on filedocumented as of this encounter Visit Diagnoses Not on filedocumented in this encounter
--- OUTSIDE RECORDS SUMMARY | 2022-02-01 13:14 | XMS_ITS | Encounter Summary ---
:1960 Author Organization [facility] Address [address] [place] [address] Care Team Providers Name Role Phone Unavailable Primary Care Provider Unavailable Reason for Visit Appointment Request (Routine) - Closed Specialty Diagnoses / Procedures Referred By Contact Refer red To Contact Radiation Oncology Diagnoses Malignant Neoplasm Of Bronchus And Lung Right (HCC) Sara Jenkins APRN [address] [place] [phone] Referral ID Status Reason Start Date Expiration Date Visits Requ ested Visits Authorized [id number] Closed 11/04/2021 11/04/2022 1 1 Encounter Details Date Type Department Care Team Description 11/05/2021 Hospital Encounter Department of [place] Wen Neoplasm Radiation Oncology [facility] Of Lung Middle Lobe in [address] Or Bronchus (HCC) [place], [place] (Primary Dx) [address] [facility] [address] [place], [place] [phone] (Work) [phone] Social History Tobacco Use Types Packs/Day Years [...] or relatives? How often do you attend rastafari or Never 2021 denominational services? Do you belong to any clubs or No 08/23/2021 organizations such as rastafari groups, unions, fraQuick Hit or athletic groups, or school groups? How [...] place to sleep or slept in a half-way (including now)? Education Answer Date Recorded What is the highest level of school Associate degree: julieta arreaga, 08/23/2021 you have completed or the highest technical, or vocational p hawkram degree you have received? Sex Assigned at Date Recorded Male 08/23/2021 10:27 AM CDT documented as of this encounter Last Filed Vital Signs Vital Sign Reading Time Taken Comments Blood Pressure 108/60 11/05/2021 9:25 AM CDT Pulse 75 11/05/2021 9:25 AM CDT Temperature 36.4 ??C (97.6 ??F) 11/05/2021 9:25 AM CDT Respiratory Rate - - Oxygen Saturation 97% 11/05/2021 10:15 AM walking CDT Inhaled Oxygen Concentration - - Weight 78.4 kg (172 lb 13.5 oz) 11/05/2021 9:25 AM CDT Height - - Body Mass Index 29.11 09/15/2021 7:46 AM CDT documented in this [...] after PEMEtrexed. documented as of this encounter Consult Notes Jazmin Mejias P.A.-C., M.S. - 11/05/2021 9:30 AM CDT SUBJECTIVE REQUESTING PROVIDER Sara Jenkins APRN REASON FOR CONSULT 1. 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 ([phone]) HISTORY OF PRESENT ILLNESS Mr. Hector Norris is a 61-year-old male with locally advanced lung cancer, who presents todayfor an opinion regarding the role of radiation therapy in the management of the patient's disease. 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 10/05/21: Cycle 2 pemetrexed, carboplatin, and pembrolizumab administered at [facility]. Pembrolizumab / PEMEtrexed / CARBOplatin Start Date: [...] enhancement to suggest metastatic disease. 11/11/2021 - Radiation Therapy Radiation Therapy Treatment Details (Noted on 11/03/2021) Site: Right Lung Technique: IMRT Goal: Palliative Planned Treatment Start Date: 11/11/2021 INTERVAL HISTORY The patient was seen and examined today with Dr. Wen. The patient reports fatigue rated 7-8/10 in severity. He reports experiencing a worsening cough since his last chemotherapy treatment. He reports increased frequency of coughing as well as phlegm production. He has some associated chest pain that he relates to the coughing, rated 5-6/10 in severity. He is taking a Codeine cough medicine with benefit every 4-6 hours. He also takes Excedrin. He reportsthat he breathes good when he is at rest. He does experience shortness of breath with mild exertion.He can climb 1 flight of stairs without stopping. He experiences sporadic episodes, at least 3 timesper day, of not being able to take a breath in. This occurs primarily in the evening and resolves onits own. He reports irritation with food intake, stating that the food sits in his stomach. He also has occasional irritation with swallowing food down his esophagus. He has been more careful with chewing and is eating softer foods. He has no issues swallowing liquids. He reports that the swallowing changes has been for the past month. He reports nausea with intense episodes of coughing, but denies vomiting. He has lost approximately 5-6 pounds. He has a history of rheumatoid arthritis, but is not currently receiving treatment. The patient denies a history of prior radiation therapy or inflammatorybowel disease. His ECOG performance status is 1. REVIEW OF SYSTEMS Review of systems was negative except as documented above. PATIENT REPORTED SYMPTOM SCREEN FATIGUE (Scale: 0 = no fatigue; 10 = worst fatigue you can imagine): 7-8 PAIN (Scale: 0 = no pain; 10 = worst pain you can imagine): 5-6 OVERALL QUALITY OF LIFE (Scale: 0 = as bad as can be; 10 = as good as can be): 5-6 PAST MEDICAL HISTORY Past Medical History: Diagnosis Date ??? Arthritis Rheumatoid (HCC) ??? Dysfunction Erectile ??? Hernia Inguinal Left ??? 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 Primary Malignant Neoplasm Of Prostate (HCC) PAST SURGICAL HISTORY Past Surgical History: Procedure Laterality Date ??? BACK SURGERY x 3 ??? CARPAL TUNNEL RELEASE Bilateral ??? INGUINAL HERNIA REPAIR Left ??? KNEE ARTHROPLASTY Right x 3 ??? KNEE ARTHROPLASTY Left x 2 ??? PROSTATECTOMY ??? ROTATOR CUFF REPAIR FAMILY HISTORY Family History Problem Relation Age of Onset ??? Prostate cancer Father ??? Lung cancer Father SOCIAL HISTORY Social History Socioeconomic History ??? Marital status: Spouse name: Christiano ??? Number of children: 5 ??? Highest education level: Associate degree: occupational, technical, or vocational program Tobacco Use ??? Smoking status: Former Smoker Packs/day: 1.00 Years: 46.00 Pack years: 46.00 Types: Cigarettes Start date: 1975 Quit date: 08/27/2021 Years since quittin.1 ??? Smokeless tobacco: Never Used Social History Narrative He is . He has 5 children and 12 grandchildren. OBJECTIVE BP 108/60 (BP Location: Right arm, Patient Position: Sitting, Cuff Size: Regular) Pulse 75 Temp 36.4 ??C (Temporal) Wt 78.4 kg SpO2 97% Comment: walking BMI 29.11 kg/m?? PHYSICAL EXAM GENERAL: Alert and oriented in no apparent distress. ASSESSMENT / PLAN #1 Stage IIIB (cT2b N3 M0) right middle lobe lung adenocarcinoma #2 Pemetrexed and carboplatin chemotherapy initiated on September 15, 2021, pembrolizumab added with cycle2 on October 05, 2021 I had a discussion with the patient and his regarding his lung cancer diagnosis including the staging. We reviewed his oncologic history as detailed above. He has received two cycles of chemotherapy. The patient has recently experienced worsening symptoms and imaging confirms progression of disease. We had a detailed discussion regarding the risks, benefits, and alternatives of radiotherapy in this setting. The patient's case was reviewed by Dr. Roque in [place], who previously saw the patient, as well as Dr. Sanchez in [place]. We discussed the recommendation for palliative radiation therapy to the right lung tumor with 1 fraction of GRID therapy followed by intensity modulated radiotherapy (IMRT) in 5 fractions. I discussed the logistics as well as the acute and chronic side effects of radiotherapy. The acute side effects are common and include fatigue, shortness of breath, skin irritation, cough, pain and/or difficulty with swallowing with a rare need for hospitalization. A delayed side effect could include radiation pneumonitis. Long-term side effects could include ulceration or narrowing of the esophagus,broken rib, spinal cord damage, chronic shortness of breath, chronic chest wall pain, or secondary malignancy. The patient was provided with a written summary of recommendations. His questions were answered to her verbalized satisfaction. Dr. Wen also met with the patient today, please see his attestation for details. After discussion, the patient verbally stated that he would like to proceed with radiation therapy. He signed consent. He is scheduled for CT simulation today. We will plan to initiate radiation therapy on Tuesday,November 11, 2021. We also discussed that his Medical Oncology team was recommending proceeding with a PET-CT scan, which will be done following radiation therapy. Based on the results, they will then decide on the next systemic therapy recommendation. The patient was provided with our contact information. He was asked to contact us sooner with questions or concerns. He verbally expressed his understanding of the plan. EDUCATION Ready to learn, no apparent learning barriers were identified; learning preferences include listening. Explained diagnosis and treatment plan; patient expressed understanding of the content. CONSENT Discussed the risks, benefits, alternatives, and the necessity of other members of the healthcare team participating in the procedure. All questions answered and consent given. PRIMARY PROVIDER Tin Hernandez M.D., M.P.H. I personally spent 60 minutes in care of the patient today. Time includes both non face to face and face to face patient care. Signed by: Jazmin Mejias P.A.-C., M.S. 11/05/2021 1:11 PM CDT [facility] [address] [place] [address] Associated attestation - Los Wen M.D. - 11/09/2021 8:59 AM CDT I saw and evaluated the patient and participated in the hernandez portions of the service. I reviewed the documentation of Jazmin Mejias P.A.-C. and agree with the findings and plan. Mr. Hector Norris is a 61-year-old male with locally advanced lung cancer that is progressingdespite 2 cycles of carboplatin, pemetrexed and pembrolizumab with the second cycle. We are asked byMs. Jenkins evaluate the patient for radiotherapy. His oncologic history is well detailed in Ms. Mejias's note. He reports increasing fatigue as well as worsening cough since his last dose of chemotherapy in September. CT imaging on October 30, 2021 revealed progression of the large right perihilar mass now measuring 4.7 cm with bronchovascular adenopathy extending along the right lower lobe bronchovascular tree with partial right lung collapse. Brain MRI was negative. He is experiencing right-sided footdrop symptoms over the last 3 weeks but no other neurologic symptoms. He can become short of breath if helies flat or if his coughing become severe. He is not on oxygen therapy. His ECOG performance statusis 1. OBJECTIVE Blood pressure 108/60, pulse 75, temperature 36.4 ??C, temperature source Temporal, weight 78.4 kg, SpO2 97 %. Body mass index is 29.11 kg/m??. PHYSICAL EXAM General: Patient is awake, alert, and oriented to person, place, and time. No apparent distress. He is here today with his Christiano. ENT: Pupils equal, round, and reactive to light. Sclerae anicteric. Oral cavity inspection reveals moist mucous membranes and no visible lesions. Neck: Supple. Lymph: No palpable cervical, supraclavicular, infraclavicular, or axillary adenopathy. Spine: No tenderness to palpation or fist percussion. Lungs: Clear to auscultation bilaterally. Heart: Regular rate and rhythm. Normal S1 and S2. No murmurs. Abdomen: Normal active bowel sounds are present. Extremities: Mild pretibial edema. Neurologic: His strength in both lower extremities is normal except for with right foot dorsiflexionwhich is week. Left foot dorsiflexion was normal. He could not walk on tiptoes because of his right foot weakness. His gait is careful and a bit wide spaced because of his right foot weakness. DIAGNOSTICS I reviewed the patient's imaging and pathology report. ASSESSMENT / PLAN #1 Stage IIIC (cT4 N3 M0) right middle lobe lung adenocarcinoma #2 Pemetrexed and carboplatin chemotherapy initiated on September 15, 2021, pembrolizumab added with cycle2 on October 05, 2021 I had a detailed discussion with the patient and his regarding the risks, benefits, and alternatives of radiotherapy in this setting. His case has been reviewed with multiple colleagues and consensus recommendation is for palliative radiotherapy to a dose of 20 Gy in 5 fractions to the right lungmass utilizing intensity modulated radiotherapy. We will also attempt to treat the right lung mass with a GRID treatment of 20 Gy in 1 fraction, but I explained to the patient that we will only proceedwith GRID if it can be done safely. I discussed the acute and chronic toxicities of such treatment including acute side effects in detail. For a complete listing of these, please see 's note. After this discussion, I provided the patient with a written summary of my recommendations. His questions were answered to his verbalized satisfaction. The patient verbally stated that he would like toproceed with treatment and signed the consent form. He will undergo CT simulation without IV contrast on today. We will endeavor to begin treatment on Tuesday, November 11, 2021. My thanks to Ms. Jenkins and Drs. Jude Juarez, and David for the opportunity to participate in this patient's care. I have spent 25 minutes with this patient today with 20 minutes spent in counseling the patient. Signed by: Los Wen M.D. 11/05/21 7:01 PM CDT [facility] [place] documented in this encounter Miscellaneous Notes Addendum Note - Kaleigh Duncan C.N.A. - 11/05/2021 9:30 AM CDT Encounter addended by: Kaleigh Duncan C.N.A. on: 11/06/2021 7:25 AM Actions taken: Letter saved Addendum Note - Los Wen M.D. - 11/05/2021 9:30 AM CDT Encounter addended by: Los Wen M.D. on: 11/09/2021 9:33 AM Actions taken: Problem List modified, Visit diagnoses modified, SmartForm saved, Edit attestation on clinical note documented in this encounter Plan of Treatment Not on filedocumented as of this encounter Visit Diagnoses Diagnosis Malignant Neoplasm Of Lung Middle Lobe O r Bronchus (HCC) - Primary documented in this encounter"
--- OUTSIDE RECORDS SUMMARY | 2022-02-01 13:14 | XMS_ITS | Encounter Summary ---
:1960 Author Organization [facility] Address [address] [place] [address] Care Team Providers Name Role Phone Unavailable Primary Care Provider Unavailable Encounter Details Date Type Department Care Team Description 01/21/2022 Hospital Encounter Department of Radiation Delilah Sanchez I., Oncology in [facility] [address] [facility] [address] [place] [phone] Social History Tobacco Use Types Packs/Day Years [...] or relatives? How often do you attend buddhist or Never 2021 uatsdin services? Do you belong to any clubs or No 08/23/2021 organizations such as buddhist groups, unions, fraternal or athletic groups, or [...] place to sleep or slept in a correction (including now)? Education Answer Date Recorded What [...]
--- OUTSIDE RECORDS SUMMARY | 2022-02-01 13:14 | XMS_ITS | Encounter Summary ---
:1960 Author Organization [facility] Address [address] [place] [address] Care Team Providers Name Role Phone Unavailable Primary Care Provider Unavailable Encounter Details Date Type Department Care Team Description 11/11/2021 Hospital Encounter Department of Radiation Ruperto Wen, Oncology in [facility] [address] [facility] [address] [place] [phone] [phone] Social History Tobacco Use Types Packs/Day Years [...] or relatives? How often do you attend uatsdin or Never 2021 gnosticism services? Do you belong to any clubs or No 08/23/2021 organizations such as uatsdin groups, unions, fraternal or athletic groups, or [...] or the highest technical, or vocational p [facility] degree you have received? Sex Assigned at [...]
--- OUTSIDE RECORDS SUMMARY | 2022-02-01 13:14 | XMS_ITS | Encounter Summary ---
:1960 Author Organization [facility] Address [address] [place] [address] Care Team Providers Name Role Phone Unavailable Primary Care Provider Unavailable Encounter Details Date Type Department Care Team Description 11/18/2021 Clinical Communication Department of Aidee Sanchez [facility] [address] [facility] [address] [place] [phone] Social History Tobacco Use Types Packs/Day Years [...] or relatives? How often do you attend adventist or Never 2021 mu-ism services? Do you belong to any clubs or No 08/23/2021 organizations such as adventist groups, unions, fraternal or athletic groups, or [...] place to sleep or slept in a mcfp (including now)? Education Answer Date Recorded What is the highest level of school Associate degree: julieta arreaga, 08/23/2021 you have completed or the highest technical, or vocational p christ degree you have received? Sex Assigned at Date Recorded Male 08/23/2021 10:27 AM CDT documented as of this encounter Miscellaneous Notes Telephone Encounter - Aidee Sanchez M.D. - 11/18/2021 4:10 PM CDT I received a phone call from Dr. Contreras, Mr. Norris's dental amalgam processor. We discussed his care. I explained GRID and the 3 EBRT treatments that he has had thus far. Dr. Contreras is concerned about his upper airway and might have a laryngoscopy performed. He agreed with me to start steroids on Mr. Norris. We will hold on EBRT until he is stable and we can hopefully resume his last two treatments next week once his pain is controlled and his breathing has stabilized. He had a CT chest on October 30 at [facility]. I don't think the November 17 CT looks very different. He has my number and can call me with more questions. documented in this encounter Plan of Treatment Not on filedocumented as of this encounter Visit Diagnoses Not on filedocumented in this encounter
--- OUTSIDE RECORDS SUMMARY | 2022-02-01 13:14 | XMS_ITS | Encounter Summary ---
:1960 Author Organization [facility] Address [address] [place] [address] Care Team Providers Name Role Phone Unavailable Primary Care Provider Unavailable Encounter Details Date Type Department Care Team Description 11/16/2021 Hospital Encounter Department of Radiation Los Flores M.D. [address] [place] [address] Oncology in [facility] Aidee Sanchez M.D. [address] [place] [address] [phone] Social History Tobacco Use Types [...] or relatives? How often do you attend restorationism or Never 2021 hinduism services? Do you belong to any clubs or No 08/23/2021 organizations such as restorationism groups, unions, fraternal or athletic groups, or [...] place to sleep or slept in a skilled nursing (including now)? Education Answer Date Recorded What [...]
--- OUTSIDE RECORDS SUMMARY | 2022-02-01 13:14 | XMS_ITS | Encounter Summary ---
:1960 Author Organization [facility] Address [address] [place] [address] Care Team Providers Name Role Phone Unavailable Primary Care Provider Unavailable Reason for Referral Outpatient (Routine) - Closed Specialty Diagnoses / Procedures Referred By Contact Refer red To Contact Radiation Oncology [facility]idee Sanchez [facility] Hilton Khanna M.D. [address] [place] [phone] Referral ID Status Reason Start Date Expiration Date Visits Requ ested Visits Authorized [id number] Closed 11/19/2021 11/19/2022 1 1 Scheduling Instructions Coordinate for same day he sees Dr. Jeff bloom at [facility], thanks! Encounter Details Date Type Department Care Team Description 11/19/2021 Orders Only Department of Radiation Aidee Sanchez, Oncology in [place] [address] [place] [phone] (Wo rk) Social History Tobacco Use Types Packs/Day Years [...] or relatives? How often do you attend christian or Never 2021 episcopalian services? Do you belong to any clubs or No 08/23/2021 organizations such as christian groups, unions, fraternal or athletic groups, or [...] place to sleep or slept in a long term (including now)? Education Answer Date Recorded What is the highest level of school Associate degree: julieta arreaga, 08/23/2021 you have completed or the highest technical, or vocational p christ degree you have received? Sex Assigned at Date Recorded Male 08/23/2021 10:27 AM CDT documented as of this encounter Plan of Treatment Scheduled Referrals Name Type Priority Associated Diagnoses Order [facility] Radiation Oncology Outpatient Referral Routine Ex pected: office visit 12/07/2021 (clinic) (Approximate), Expires: 11/19/2022 documented as of this encounter Visit Diagnoses Not on filedocumented in this encounter
--- OUTSIDE RECORDS SUMMARY | 2022-02-01 13:14 | XMS_ITS | Encounter Summary ---
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 [facility] Procedures Management Visit [address] [place] [phone] Referral ID Status Reason Start Date Expiration Date Visits V isits Requested Authorized [id number] Authorized 01/15/2022 01/15/2023 10 10 Reason for Visit Radiation Therapy (Routine) - Authorized Specialty Diagnoses / Procedures Referred By Contact Refer red To Contact Diagnoses 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 [facility] Procedures Management Visit [address] [place] [phone] Referral ID Status Reason Start Date Expiration Date Visits V isits Requested Authorized [id number] Authorized 01/15/2022 01/15/2023 10 10 Encounter Details Date Type Department Care Team Description 01/26/2022 Hospital Encounter Department of Aidee Sanchez Neoplasm Of Lung Middle Lobe Or Bronchus (HCC); Radiation Oncology [facility] Secondary Malignant Neoplasm Bone (HCC) in [place], [address] [place] [address] [address] [facility] [address] [place], [place] [phone] (Work) [phone] Social History Tobacco Use Types Packs/Day Years [...] do you attend presybeterian or Never 2021 nondenominational services? Do you belong to any clubs [...] place to sleep or slept in a longterm (including now)? Education Answer Date Recorded What is the highest level of school Associate degree: julieta arreaga, 08/23/2021 you have completed or the highest technical, or vocational p [facility] degree you have received? Sex Assigned at Date Recorded Male 08/23/2021 10:27 AM CDT documented as of this encounter Last Filed Vital Signs Vital Sign Reading Time Taken Comments Blood Pressure 118/71 01/26/2022 3:24 PM CDT Pulse - - Temperature 36.7 ??C (98.1 ??F) 01/26/2022 3:24 PM CDT Respiratory Rate - - Oxygen Saturation - - Inhaled Oxygen Concentration - - Weight 76 kg (167 lb 8.8 oz) 01/26/2022 3:24 PM CDT Height - - Body Mass Index 28.22 09/15/2021 7:46 AM CDT documented in this encounter Medications at Time of Discharge Medication Sig Dispensed Refills Start Date End Date albuterol 90 Inhale 2 puffs. 0 11/20/2021 mcg/actuation inhaler albuterol 90 Inhale 2 puffs as 0 11/20/2021 mcg/actuation inhaler needed. yoipziq-[id number] Take 1 tablet by 0 ffeine (EXCEDRIN [...] ACTIVITY documented as of this encounter Progress Aidee Monteiro M.D. - 01/26/2022 3:45 PM CDT ATTESTATION FOR MANAGEMENT VISIT I saw and evaluated the patient and participated in the hernandez portions of the service as noted below. I reviewed the documentation of Ms. Lucero Whitaker RN and agree with the findings and plan. The patient appears well on exam. We will continue with radiation as planned and we anticipate that he will complete treatments this week. We anticipate that Mr. Hector Norris will complete radiation treatment as planned without interruptions. The course of treatment was tolerated well. He is having muscle aches, but no fever, chills or change in his chronic cough. Follow-up will be with Dr. Jarrett. We will be as needed. His questions were answered; he was comfortable with this plan. Aidee Sanchez M.D., 01/26/2022 SUBJECTIVE REASON FOR VISIT Evaluation for side effects while receiving radiation treatment for 1. Malignant Neoplasm Of Lung Middle Lobe Or Bronchus (HCC) 2. Secondary Malignant Neoplasm Bone (HCC) SUPERVISED BY: Aidee Sanchez M.D. HISTORY OF PRESENT ILLNESS Mr. Hector Norris is a 61 y.o. male with metastatic lung cancer. He is now undergoing palliative radiation therapy to the left scapula and right femur. Treatment Course: 2xMultiSite Plan ID Fractions Dose / Fraction (cGy) Dose Treated (cGy) Dose Planned (cGy) First Treatment Last Treatment Elapsed Days [id number] 400 1200 199901/21/2022 01/25/2022 4 [id number] 400 1200 199901/21/2022 01/25/2022 4 Course Summary 01/21/2022 01/25/2022 4 The patient was seen and examined today with Dr. Sanchez. The patient reports that his core muscles he uses with breathing are sore when he takes a deep breath. This started when radiation started this week. He is also experience left scapula pain, right femur radiating pain and his right gil is tender to touch. He denies any other new symptoms or concerns.He takes 1/2 of a 10 mg Oxycodone tablet every 6 hours as needed for pain management. PATIENT REPORTED SYMPTOM SCREEN FATIGUE (Scale: 0 = no fatigue; 10 = worst fatigue you can imagine): 4-6 PAIN (Scale: 0 = no pain; 10 = worst pain you can imagine): 6-9 OVERALL QUALITY OF LIFE (Scale: 0 = as bad as can be; 10 = as good as can be): 5-8 OBJECTIVE BP 118/71 (BP Location: Right arm, Patient Position: Sitting, Cuff Size: Regular) Temp 36.7 ??C (Temporal) Wt 76 kg BMI 28.22 kg/m?? 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 Patient was able to visit with Dr. Rutledgeadalberto. Plan is for patient to begin chemotherapy this coming Tuesday. Dr. Humphries will see patient in follow up this Tuesday. Dr. Humphries has been managing his pain medications. We will keep Radiation Oncology follow up to an as needed basis only. He will contact us with any questions or concerns. We will continue with radiation treatment as planned. Signed by: Lucero Whitaker R.N. 01/26/2022 3:49 PM CDT documented in this encounter Plan of Treatment Scheduled Orders Name Type Priority Associated Diagnoses Order S chedule Management Visit Radiation Oncology Routine Malignant Neoplasm Once for 1 Of Lung Middle Lobe Occurren baldmoero starting Or Bronchus (HCC ) 01/26/2022 until Secondary Malignant 01/27/20 22 Neoplasm Bone (HCC) documented as of this encounter Visit Diagnoses Diagnosis Malignant Neoplasm Of Lung Middle Lobe O r Bronchus (HCC) Secondary Malignant Neoplasm Bone (HCC) documented in this encounter
--- OUTSIDE RECORDS SUMMARY | 2022-02-01 13:14 | XMS_ITS | Encounter Summary ---
:1960 Author Organization [facility] Address [address] [place] [address] Care Team Providers Name Role Phone Unavailable Primary Care Provider Unavailable Encounter Details Date Type Department Care Team Description 11/17/2021 Clinical Communication Department of Aidee Sanchez [facility] [address] [facility] [address] [place] [phone] Social History Tobacco Use Types Packs/Day Years [...] or relatives? How often do you attend hindu or Never 2021 mormon services? Do you belong to any clubs or No 08/23/2021 organizations such as hindu groups, unions, fraternal or athletic groups, or [...] place to sleep or slept in a retirement (including now)? Education Answer Date Recorded What is the highest level of school Associate degree: leloalie arreaga, 08/23/2021 you have completed or the highest technical, or vocational p christ degree you have received? Sex Assigned at Date Recorded Male 08/23/2021 10:27 AM CDT documented as of this encounter Miscellaneous Notes Telephone Encounter - Maggie Castillo - 11/17/2021 8:26 AM CDT Caller: Christiano, patient's Is there a valid authorization to speak with caller? Yes Primary Radiation Oncologist: Dr. Sanchez Reason for call: Patient's called to say that the patient was admitted to [facility] yesterday with breathing difficulties. He will not be in for treatment today and wanted the team to know what is going on. Phone number: [phone] Is it okay to leave a voicemail on answering machine with test results? Yes Pharmacy (if medication related): N/A Maggiekristi Castillo I called and spoke with Mr. Norris's . He was having more pain yesterday and feeling more short of breath. He went to the ER and had a CT chest done. I do not yet have these images. The report indicates that it was compared to an July 2021 study. I explained that they likely did not have the October 30, 2021 study that we had. I did notice yesterday on his daily CBCT that he is getting more fluid on the right lung. I told her that if he misses his treatment today that we can resume once he is stabilized and safe to leave the hospital. She is wondering if they can give him his Oxygen as they will bemissing the appointment for that today. I told her to check with the hospitalist. Her questions were answered. We will get the CT chest into our system. documented in this encounter Plan of Treatment Not on filedocumented as of this encounter Visit Diagnoses Not on filedocumented in this encounter
--- OUTSIDE RECORDS SUMMARY | 2022-02-01 13:14 | XMS_ITS | Encounter Summary ---
:1960 Author Organization [facility] Address [address] [place] [address] Care Team Providers Name Role Phone Unavailable Primary Care Provider Unavailable Encounter Details Date Type Department Care Team Description 11/19/2021 Clinical Communication Department of Aidee Sanchez [facility] [address] [facility] [address] [place] [phone] Social History Tobacco Use Types Packs/Day Years [...] or relatives? How often do you attend baptist or Never 2021 shinto services? Do you belong to any clubs or No 08/23/2021 organizations such as baptist groups, unions, fraternal or athletic groups, or [...] place to sleep or slept in a snf (including now)? Education Answer Date Recorded What is the highest level of school Associate degree: leloalie arreaga, 08/23/2021 you have completed or the highest technical, or vocational p christ degree you have received? Sex Assigned at Date Recorded Male 08/23/2021 10:27 AM CDT documented as of this encounter Miscellaneous Notes Telephone Encounter - Aidee Sanchez M.D. - 11/19/2021 11:02 AM CDT I called and spoke with Mrs. Norris today. She states that Mr. Norris had a much better night last night. He is getting his laryngoscopy this morning. If all looks good they will discharge him this afternoon or tomorrow. We agreed to resume radiation on Tuesday. He will see Dr. Wen that day. I will see him back in [address] Jarrett at [facility]. Her questions were answered; she was comfortable with this plan. documented in this encounter Plan of Treatment Not on filedocumented as of this encounter Visit Diagnoses Not on filedocumented in this encounter
--- OUTSIDE RECORDS SUMMARY | 2022-02-01 13:14 | XMS_ITS | Encounter Summary ---
:1960 Author Organization [facility] Address [address] [place] [address] Care Team Providers Name Role Phone Unavailable Primary Care Provider Unavailable Reason for Referral Radiation Therapy (Routine) - Authorized Specialty Diagnoses / Procedures Referred By Contact Refer red To Contact Diagnoses 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 [facility] Procedures Management Visit [address] [place], [place] [phone] Referral ID Status Reason Start Date Expiration Date Visits V isits Requested Authorized [id number] Authorized 11/03/2021 11/03/2022 10 10 Reason for Visit Radiation Therapy (Routine) - Authorized Specialty Diagnoses / Procedures Referred By Contact Refer red To Contact Diagnoses 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 [facility] Procedures Management Visit [address] [place] [address] Referral ID Status Reason Start Date Expiration Date Visits V isits Requested Authorized [id number] Authorized 11/03/2021 11/03/2022 10 10 Encounter Details Date Type Department Care Team Description 11/24/2021 - Hospital Encounter Department of Leenstra, Malignan t Neoplasm 12/18/2021 Radiation Oncology Los Childress M.D. Of Right Main in [place], [address] [facility] Bronchus (HCC) [place], [place] [address] [facility] [address] [place], [place] [phone] (Work) [phone] Social History Tobacco Use Types Packs/Day Years [...] or relatives? How often do you attend islam or Never 2021 moravian services? Do you belong to any clubs or No 08/23/2021 organizations such as islam groups, unions, fraternal or athletic groups, or [...] place to sleep or slept in a fpc (including now)? Education Answer Date Recorded What is the highest level of school Associate degree: julieta arreaga, 08/23/2021 you have completed or the highest technical, or vocational p christ degree you have received? Sex Assigned at Date Recorded Male 08/23/2021 10:27 AM CDT documented as of this encounter Last Filed Vital Signs Vital Sign Reading Time Taken Comments Blood Pressure 138/79 11/24/2021 12:21 PM CDT Pulse 62 11/24/2021 12:21 PM CDT Temperature 36.6 ??C (97.9 ??F) 11/24/2021 12:21 PM CDT Respiratory Rate - - Oxygen Saturation - - Inhaled Oxygen Concentration - - Weight 81.9 kg (180 lb 8.9 oz) 11/24/2021 12:21 PM CDT Height - - Body Mass Index 30.41 09/15/2021 7:46 AM CDT documented in this encounter Medications at Time of Discharge Medication Sig Dispensed Refills Start Date End Date albuterol 90 Inhale 2 puffs. 0 11/20/2021 mcg/actuation inhaler albuterol 90 Inhale 2 puffs as 0 11/20/2021 mcg/actuation inhaler needed. [id number]-eghtjmpqbqpjf-zo Take 1 tablet by 0 ffeine (EXCEDRIN [...] BY MOUTH NEEDED TIMED AROUND SEXUAL ACTIVITY colchicine (COLCRYS) 0.6 Take 0.6 mg by 0 022 12/19/2021 mg tablet mouth. documented as of this encounter Progress Notes Los Wen M.D. - 11/24/2021 12:30 PM CDT SUBJECTIVE REASON FOR VISIT Evaluation for side effects while receiving radiation treatment for 1. 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 Hector Norris is a 61 y.o. 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 Heis currently undergoing GRID followed by external beam radiotherapy. He was hospitalized from November 17 through November 19, 2021 at [facility] for postobstructive pneumonia. Treatment Course: 1xLung Plan ID Fractions Dose / Fraction (cGy) Dose Treated (cGy) Dose Planned (cGy) First Treatment Last Treatment Elapsed Days [id number] 199911/11/2021 11/11/2021 0 [id number] 400 199911/12/2021 11/24/2021 12 Course Summary 11/11/2021 11/24/2021 13 Oncology History Malignant Neoplasm Of Lung Middle [...] Cycle 1 pemetrexed and carboplatin administered at [facility] in [place]. 10/05/21: Cycle 2 pemetrexed, carboplatin, and pembrolizumab administered at [facility]. Pembrolizumab / PEMEtrexed / CARBOplatin Start [...] increase steroid dosage to hopefully mitigate pain. Patient seen and evaluated today with Dr. Wen. The patient reports that his cough has improved and his shortness of breath has lessened some. He has not picked up his DuoNebs prescription. He is taking his Albuterol inhaler and Tessalon Pearls. He denies recurrence of chest pain or tachycardia. He denies diarrhea, dysphagia, nausea, vomiting, dehydration, fevers or chills. He rates sore throat pain at a 2 out of 10. He takes Oxycodone twice a day. PATIENT REPORTED SYMPTOM SCREEN FATIGUE (Scale: 0 = no fatigue; 10 = worst fatigue you can imagine): 4-6 PAIN (Scale: 0 = no pain; 10 = worst pain you can imagine): 3-5 OVERALL QUALITY OF LIFE (Scale: 0 = as bad as can be; 10 = as good as can be): 5-7 OBJECTIVE BP 138/79 (BP Location: Right arm, Patient Position: Sitting, Cuff Size: Small) Pulse 62 Temp 36.6 ??C (Temporal) Wt 81.9 kg BMI 30.41 kg/m?? , Oxygen saturation was 98% on room air at rest anddropped to 96-97% with ambulation PHYSICAL EXAM General: Alert and oriented in no apparent distress. He is here today with his daughter. ASSESSMENT / PLAN #1 Stage IIIC (cT4 N3 M0) right middle lobe lung adenocarcinoma #2 Pemetrexed and carboplatin chemotherapy initiated on September 15, 2021, pembrolizumab added with cycle2 on October 05, 2021 #3 Grade therapy to the right lung tumor on November 11, 2021 with subsequent external beam radiotherapyfrom November 12 through November 24, 2021; break in treatment due to hospitalization #4 Admission to [facility] with postobstructive pneumonia from November 17, 2021 through November 19, 2021 The patient is doing well overall. We encouraged patient to picket labor union DuoNeb prescription. [facility] will see patient next week to follow up. We will not order formal follow up at this time. We encourage patient to contact us for any questions or concerns. Signed by: Lucero Whitaker RN 11/24/21 1:27 PM CDT I saw and evaluated the patient and participated in the hernandez portions of the service. I reviewed the documentation of Lucero Whitaker R.N. and agree with the findings and plan. The patient appears well onexam. He is doing better now after his hospitalization. He will resume treatment. He will follow up with our colleagues in Medical Oncology at [facility] and likely with Dr. Sanchez in December. He will continue with treatment as planned. Signed by: Los Wen M.D. 12/18/2021 12:41 PM CDT [facility] [address] [place] [address] documented in this encounter Plan of Treatment Scheduled Orders Name Type Priority Associated Diagnoses Order S chedule Management Visit Radiation Oncology Routine Malignant Neoplasm Once for [address] Occurrences st arting Bronchus (HCC) 11/24/2021 un til 11/24/2021 documented as of this encounter Visit Diagnoses Diagnosis Malignant Neoplasm Of Right Main Bronchu s (HCC) documented in this encounter
--- OUTSIDE RECORDS SUMMARY | 2022-02-01 13:14 | XMS_ITS | Encounter Summary ---
:1960 Author Organization [facility] Address [address] [place] [address] Care Team Providers Name Role Phone Unavailable Primary Care Provider Unavailable Encounter Details Date Type Department Care Team Description 01/27/2022 Hospital Encounter Department of Radiation Delilah Sanchez I., Oncology in [facility] [address] [facility] [address] [place] [address] [phone] Social History Tobacco Use Types Packs/Day Years [...] or relatives? How often do you attend zoroastrianism or Never 2021 baptist services? Do you belong to any clubs or No 08/23/2021 organizations such as zoroastrianism groups, unions, fraternal or athletic groups, or [...] place to sleep or slept in a custodial (including now)? Education Answer Date Recorded What [...]
--- OUTSIDE RECORDS SUMMARY | 2022-02-01 13:14 | XMS_ITS | Encounter Summary ---
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 [facility] Region Procedures Initial Rad Onc Treatment Planning CT Simulation [address] [place] [address] Referral ID Status Reason Start Date Expiration Date Visits Requ ested Visits Authorized [id number] Closed 01/15/2022 01/15/2023 1 1 Encounter Details Date Type Department Care Team Description 01/15/2022 Hospital Encounter Department of Aidee Sanchez Neoplasm Of Lung Middle Lobe Or Bronchus (HCC); Radiation Oncology Tj Covarrubias Secondary Malignant Neoplasm Bone (HCC) in [place] [address] [place], [place] [address] [facility] [address] [place], [place] [phone] [address] (Work) [phone] Social History Tobacco Use Types Packs/Day Years [...] or relatives? How often do you attend mosque or Never 2021 caodaism services? Do you belong to any clubs or No 08/23/2021 organizations such as mosque groups, unions, fraternal or athletic groups, or [...] place to sleep or slept in a fdc (including now)? Education Answer Date Recorded What is the highest level of school Associate degree: julieta arreaga, 08/23/2021 you have completed or the highest technical, or vocational p rogram degree you have received? Sex Assigned at Date Recorded Male 08/23/2021 10:27 AM CDT documented as of this encounter Medications at Time of Discharge Medication Sig Dispensed Refills Start Date End Date albuterol 90 Inhale 2 puffs. 0 11/20/2021 mcg/actuation inhaler albuterol 90 Inhale 2 puffs as 0 11/20/2021 mcg/actuation inhaler needed. 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 Authorized by: Aidee Sanchez M.D. Simulation [...] placed to facilitate marking of isocenter. Area scanned: Chest, Abdomen, and Lower Extremity Contrast used for the simulation procedure: None Patient position: Head first supine and feet first supine Custom immobilization: Vac-kaley Motion management: None Bolus: No CT guidance: Following positioning of the patient, a series of slices was obtained to be utilized intreatment planning. CT images were transferred to the Eclipse treatment planning system, after a reference isocenter was determined and marked. Segmentation and treatment planning will take place priorto treatment delivery. Patient set up and imaging was appropriate and completed without incident. Automation Machine Builder use:No documented in this encounter Plan of Treatment Not on filedocumented as of this encounter Procedures Procedure Name Priority Date/Time Associated Comments Diagnosis INITIAL RAD ONC Routine 01/15/2022 12:00 PM Malignant Neoplasm Results for this TREATMENT PLANNING CDT Of Lung Middle Lobe pr ocedure are in CT SIMULATION Or Bronchus (HCC ) the results Secondary Malignant section. Neoplasm Bone (HCC) documented in this encounter Results Initial Rad Onc Treatment Planning CT Simulation (01/15/2022 12:00 PM CDT) Specimen (Source) Anatomical Location Collection Method / Collectio n Time Received Time / Laterality Volume Narrative MAKENZIE KEN - 01/15/2022 12:00 PM CDT Hayley Chang, RTT ? 01/15/2022 12:44 PM Initial Rad Onc Treatment Planning CT Si mulation Performed by: Aidee Sanchez M.D. Authorized by: Aidee Sanchez M.D. Aidee Sanchez M.D. RADIATION ONCOLOGY ORDERABLE S Performing Organization Address City/State/ZIP Code Phon e Number [facility] na documented in this encounter Visit Diagnoses Diagnosis Malignant Neoplasm Of Lung Middle Lobe O r Bronchus (HCC) Secondary Malignant Neoplasm Bone (HCC) documented in this encounter
--- OUTSIDE RECORDS SUMMARY | 2022-02-01 13:14 | XMS_ITS | Encounter Summary ---
:1960 Author Organization [facility] Address [address] [place] [address] Care Team Providers Name Role Phone Unavailable Primary Care Provider Unavailable Encounter Details Date Type Department Care Team Description 01/22/2022 Hospital Encounter Department of Radiation Delilah Sanchez I., Oncology in [facility] [address] [facility] [address] [place] [address] [phone] Social History Tobacco Use Types Packs/Day Years [...] do you attend baptist or Never 2021 sabianist services? Do you belong to any clubs [...] place to sleep or slept in a intermediate (including now)? Education Answer Date Recorded What [...]
--- OUTSIDE RECORDS SUMMARY | 2022-02-01 13:14 | XMS_ITS | Encounter Summary ---
:1960 Author Organization [facility] Address [address] [place] [address] Care Team Providers Name Role Phone Unavailable Primary Care Provider Unavailable Encounter Details Date Type Department Care Team Description 11/13/2021 Hospital Encounter Department of Radiation Los Flores M.D. [address] [place] [address] Oncology in [facility] Aidee Sanchez M.D. [address] [place] [address] [address] Social History Tobacco Use Types [...] or relatives? How often do you attend jain or Never 2021 taoism services? Do you belong to any clubs or No 08/23/2021 organizations such as jain groups, unions, fraternal or athletic groups, or [...] place to sleep or slept in a senior living (including now)? Education Answer Date Recorded What [...]
--- OUTSIDE RECORDS SUMMARY | 2022-02-01 13:14 | XMS_ITS | Encounter Summary ---
:1960 Author Organization [facility] Address [address] [place] [address] Care Team Providers Name Role Phone Unavailable Primary Care Provider Unavailable Encounter Details Date Type Department Care Team Description 11/24/2021 Documentation Department of Radiation [facility] [place] [address] [facility] [address] [place] [address] [phone] (Wo rk) Social History Tobacco Use Types [...] do you attend uatsdin or Never 2021 pentecostal services? Do you [...] or the highest technical, or vocational p [facility] degree you have received? Sex Assigned at Date Recorded Male 08/23/2021 10:27 AM CDT documented as of this encounter Miscellaneous Notes Radiation Completion Notes - Corie Miller R.N. - 11/24/2021 11:59 PM CDT DIAGNOSIS: 1. 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 Treatment Intent: Palliative Concomitant Therapy: Chemotherapy Single Plan Treatment Course: 1xLung Plan ID Fractions Dose / Fraction (cGy) Dose Treated (cGy) Dose Planned (cGy) First Treatment Last Treatment Elapsed Days [id number] 199911/11/2021 11/11/2021 0 [id number] 199911/12/2021 11/24/2021 12 Course Summary 11/11/2021 11/24/2021 13 Radiation Modality: Photons CLINICAL SUMMARY Mr. Hector Norris completed radiation treatment as planned with interruptions due to being hospitalized. The course of treatment was tolerated moderately well. The patient experienced no toxicities related to radiation treatment. TREATMENT RESPONSE: Response to treatment will be determined by post-treatment imaging and/or laboratory work. RECOMMENDED FOLLOW UP: Radiation Oncologist and Primary Medical Oncologist. Signed by: Corie Miller R.N., 12/08/2021 10:39 AM CDT [facility] [address] [place] [address] documented in this encounter Plan of Treatment Not on filedocumented as of this encounter Visit Diagnoses Diagnosis Malignant Neoplasm Of Lung Middle Lobe O r Bronchus (HCC) - Primary documented in this encounter
--- OUTSIDE RECORDS SUMMARY | 2022-02-01 13:14 | XMS_ITS ---
:1960 Author Organization [facility] Address [address] [place] [address] Care Team Providers Name Role Phone Unavailable Primary Care Provider Unavailable 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 2021: Stage IIIC (cT4, cN3, cM0) - Unsigned Current Oncology Plans Pembrolizumab / PEMEtrexed / CARBOplatinPlan Start Date:09/06/2021 Plan Provider:Deepthi Mcqueen APRN, C.N.P., M.S.N. Linked Problems Malignant Neoplasm Of Lung Middle Lobe O r Bronchus (HCC) Treatment Medications Current Day (Day 1, Cycle 2 Next Day ( Day 1, Cycle 3 - - Planned for 10/05/2021) Planned for 10/26) CARBOplatin CARBOplatin 670 mg in NaCl CARBOplatin 6 70 mg in NaCl (PARAPLATIN)CARBOplatin 0.9% 317 mL IVPB 0.9% 317 mL IVPB (PARAPLATIN) IVPB (BY AUC) in (PARAPLATIN)pembrolizumab (PARAPLATIN)pembrolizumab 250 mL 200 mg in NaCl 0.9% 108 mL 200 mg in NaC l 0.9% 108 mL (PARAPLATIN)pembrolizumab IVPB (KEYTRUDA)PEMEtrexed IVPB (KE YTRUDA)PEMEtrexed (KEYTRUDA)PEMEtrexed disodium 1,000 mg in NaCl disodium 1,00 0 mg in NaCl (ALIMTA)PEMEtrexed (ALIMTA) 0.9% 140 mL IVPB (ALIMTA) 0.9% 1 40 mL IVPB (ALIMTA) IVPB (500 mg vial) (ALIMTA) VASCULAR ACCESS PATENCY - PERIPHERAL INTRAVENOUS CATHETER AND RAPID INFUSION CATHETERPlan Start Date:09/15/2021 Linked Problems Malignant Neoplasm Of Lung Middle Lobe O r Bronchus (HCC) Treatment Medications No medications scheduled. Past Plans No past plan information found. Radiation Treatments Plan Last Treated Elapsed Days Fractions Prescribed Prescribed Total On Treated Fraction Dose Dose [id number] 01/27/2022 6 5 of 5 400 cGy 2,000 cGy [id number] 01/27/2022 6 5 of 5 400 cGy 2,000 cGy [id number] 11/24/2021 13 5 of 5 400 cGy 2,000 cGy [id number] 11/11/2021 0 1 of 1 2,000 cGy 2,000 cGy Reference Point Last Treated On Elapsed Days Session Dose Total Dos e [id number] Lscap 01/27/2022 6 400 cGy 2,000 cGy [id number] Rfemur 01/27/2022 6 400 cGy 2,000 cGy dpv 2000x 11/24/2021 13 400 cGy 2,000 cGy dpv 2000x GRID 11/11/2021 0 2,000 cGy 2,000 cGy
--- OUTSIDE RECORDS SUMMARY | 2022-02-01 13:14 | XMS_ITS | Encounter Summary ---
:1960 Author Organization [facility] Address [address] [place] [address] Care Team Providers Name Role Phone Unavailable Primary Care Provider Unavailable Reason for Visit Reason Comments Follow-up Encounter Details Date Type Department Care Team Description 12/09/2021 Clinical Communication Department of Aidee Sanchez Radiation Oncology in [facility] [place], [place] [address] [facility] [address] [place] [address] [phone] Social History Tobacco Use Types Packs/Day Years [...] or relatives? How often do you attend protestant or Never 2021 buddhism services? Do you belong to any clubs or No 08/23/2021 organizations such as protestant groups, unions, fraternal or athletic groups, or [...] this encounter Miscellaneous Notes Telephone Encounter - Lucreo Whitaker R.N. - 12/09/2021 3:27 PM CDT ASSESSMENT I returned patient's phone call today. Patient reports that on Tuesday he started having sore/pulled muscle pain that he describes as joint pain from the toes through out his body. Pain is more noticeable to the right foot, he describes this pain as over used muscle pain. He also notes more noticeable pain to his shoulders and hips. The pain makes him feel weak but he is able to ambulate. Pain has nowbeen ongoing for 4 days. He denies fevers, chills, sore throat, hemoptysis. Dysphagia has improved significantly. Cough is also improving. PLAN I have discussed with HERNÁN Miller. I then called patient back and left voicemail requesting call back. We need to know if he has experienced this type of pain before. We also need to determine if he is still on steroids. If he is off steroids, we need to know when his last dose was completed. If pain is not related to coming off steroids; then this is likely not radiation inflammatory pain related and we would therefore recommend he follow up with his primar care provider. Disposition/Recommendation: need to know if patient has experienced this pain before and status of steroid medication . Waiting patient call back. Information/Education: not applicable . Caller agreeable to plan of care: yes. The following references were used: provider Graf Wu PA-C . Telephone Encounter - Joaquina Malhotra - 12/09/2021 9:56 AM CDT Caller: Patient Is there a valid authorization to speak with caller? Yes and n/a Primary Radiation Oncologist: Dr. Sanchez Reason for call: Patient is calling hoping to speak with Lucero in regards to pain and fatigue levels.Patient reports not being able to handle getting out of bed for about 4 days now feeling very tired,weak and in to much pain, and would likes some advice on what to do. Please call the patient to answer his questions. Phone number: [phone] Is it okay to leave a voicemail on answering machine with test results? Yes Pharmacy (if medication related): N/A documented in this encounter Plan of Treatment Not on filedocumented as of this encounter Visit Diagnoses Not on filedocumented in this encounter
--- OUTSIDE RECORDS SUMMARY | 2022-02-01 13:14 | XMS_ITS | Encounter Summary ---
:1960 Author Organization [facility] Address [address] [place] [address] Care Team Providers Name Role Phone Unavailable Primary Care Provider Unavailable Encounter Details Date Type Department Care Team Description 11/24/2021 Hospital Encounter Department of Radiation Delilah Sanchez I., Oncology in [facility] [address] [facility] [address] [place] [address] [phone] Social History Tobacco Use Types Packs/Day Years [...] or relatives? How often do you attend christianity or Never 2021 scientology services? Do you belong to any clubs or No 08/23/2021 organizations such as christianity groups, unions, fraternal or athletic groups, or [...] place to sleep or slept in a halfway (including now)? Education Answer Date Recorded What is the highest level of school Associate degree: julieta arreaga, 08/23/2021 you have completed or the highest technical, or vocational p [facility] degree you have received? Sex Assigned at Date Recorded Male 08/23/2021 10:27 AM CDT documented as of this encounter Medications at Time of Discharge Medication Sig Dispensed Refills Start Date End Date albuterol 90 Inhale 2 puffs. 0 11/20/2021 mcg/actuation inhaler albuterol 90 Inhale 2 puffs as 0 11/20/2021 mcg/actuation inhaler needed. [id number] Take 1 tablet by 0 ffeine (EXCEDRIN [...]
--- OUTSIDE RECORDS SUMMARY | 2022-02-01 13:14 | XMS_ITS | Encounter Summary ---
:1960 Author Organization [facility] Address [address] [place] [address] Care Team Providers Name Role Phone Unavailable Primary Care Provider Unavailable Encounter Details Date Type Department Care Team Description 01/25/2022 Hospital Encounter Department of Radiation Delilah Sanchez I., Oncology in [facility] [address] [facility] [address] [place] [address] [phone] Social History Tobacco Use Types Packs/Day Years [...] or relatives? How often do you attend sabianism or Never 2021 hoahaoism services? Do you belong to any clubs or No 08/23/2021 organizations such as sabianism groups, unions, fraternal or athletic groups, or [...]
--- OUTSIDE RECORDS SUMMARY | 2022-02-01 13:15 | XMS_ITS | Encounter Summary ---
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 [facility] Procedures MR Brain without and with IV Contrast MR Brain with IV Contrast MO MRI BRAIN [address] [place], [place] [address] Referral ID Status Reason Start Date Expiration Date Visits V isits Requested Authorized [id number] Modified 08/27/2021 08/27/2022 1 1 Order Encounter Details Date Type Department Care Team Description 09/10/2021 Hospital Encounter Department of Catia Moore Neoplasm Radiology, Hayden Ladd M.D. Of Bronchus And Lung [place], in [address] [facility] Multiple Site Left [place], [place] ([facility]) [place] [address] [address] [facility] [phone] [place], [place] (Work) [phone] Social History Tobacco Use Types Packs/Day Years Used Date Smoking Tobacco: Former Cigarettes 1 46 1975 - 08/27/2021 Smokeless Tobacco: Never Alcohol Habits Answer Date Recorded How often [...] do you attend restorationism or Never 2021 adventist services? Do you belong to any clubs [...] place to sleep or slept in a long-term (including now)? Education Answer Date Recorded What is the highest level of school Associate degree: julieta arreaga, 08/23/2021 you have completed or the highest technical, or vocational [facility] degree you have received? Sex Assigned at Date Recorded Male 08/23/2021 10:27 AM CDT documented as of this encounter Medications at Time of Discharge Medication Sig Dispensed Refills Start Date End Date benzonatate (TESSALON) 0 09/02/2021 200 mg capsule codeine-guaiFENesin Take 10 mL by mouth. 0 2021 (ROBITUSSIN-AC) 10-100 mg/5 mL liquid escitalopram (LEXAPRO) 10 Take 10 mg by mouth. 0 08/06/2021 mg tablet escitalopram (LEXAPRO) 10 Take 10 mg by mouth 0 0 08/06/2021 mg tablet daily. omeprazole (PriLOSEC) 40 omeprazole 40 mg capsule,delayed release 0 06/23/[address] capsule TAKE ONE CAPSULE BY MOUTH ONCE DAILY before a meal ondansetron (ZOFRAN) 8 mg Take 8 mg by mouth as 0 09/10/2021 tablet needed. tadalafiL (CIALIS, tadalafil 20 mg tablet 0 ADCIRCA) 20 mg tablet TAKE ONE TABLET BY MOUTH NEEDED TIMED AROUND SEXUAL ACTIVITY documented as of this encounter Plan of Treatment Not on filedocumented as of this encounter Procedures Procedure Name Priority Date/Time Associated Comments Diagnosis MR BRAIN WITHOUT RAD - Routine 09/10/2021 6:58 Malignant Results for this AND WITH IV (most inpatients AM CDT Neoplasm Of procedure a re in CONTRAST and all Bronchus And Lung the result s outpatients) Multiple Site section. Left (HCC) documented in this encounter Results MR Brain without and with IV Contrast (09/10/2021 6:58 AM CDT) Anatomical Region Laterality Modality Head, Brain, Neuroradiology RST LOS, Neuroradiology ARZ N/A Magnetic Resonance LOS, Neuroradiology FLA LOS Specimen (Source) Anatomical Collection Method Collection Time Re ceived Time Location / / Volume Laterality 09/10/2021 7:30 AM CDT Impressions 09/10/2021 7:41 AM CDT 1. No evidence of intracranial metastatic disease. 2. The previously described tiny enhanci ng areas most likely represent vascular lesions/vessels. Narrative 09/10/2021 7:41 AM CDT EXAM: MR BRAIN WITHOUT AND WITH IV CONTRAST COMPARISON: MRI head 08/26/2021. 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 Stable subtle area of linear enhancement over the left cerebellar hemisphere (17/55), also likely vascular. A subtle linear area of enhancement along the right superior frontal gyrus (17/135) is stable and likely represents a vessel. The addition al tiny focus of enhancement in the right parietal lobe is not definitely seen and was most likely vascular/artifactual. No focal areas of intraparenchymal enhancement to suggest metastatic diseas e. Mild scattered foci of FLAIR hyperintens ity in the cerebral white matter and moderate/prominent FLAIR hyperintensity in the bailey most co nsistent with small vessel ischemic disease. Mild cerebral and cerebellar parenchymal volume loss. Stable appearance of the pituitary gland. Tiny developmental venous anomaly superior right frontal lo be. Slight mucosal thickening in the paranas al sinuses. Procedure Note Toya Aparicio M.D. - 09/10/2021Forma tting of this note might be different from the original. EXAM: MR BRAIN WITHOUT AND WITH IV CONTR AST COMPARISON: MRI head 08/26/2021. 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 Stable subtle area of linear enhancement over the left cerebellar hemisphere (/55), also likely vascular. A subtle linear area of enhancement along the right superior frontal gyrus (/135) is stable and likely represents a vessel. The addition al tiny focus of enhancement in the right parietal lobe is not definitely seen and was most likely vascular/artifactual. No focal areas of intraparenchymal enhancement to suggest metastatic diseas e. Mild scattered foci of FLAIR hyperintens ity in the cerebral white matter and moderate/prominent FLAIR hyperintensity in the bailey most co nsistent with small vessel ischemic disease. Mild cerebral and cerebellar parenchymal volume loss. Stable appearance of the pituitary gland. Tiny developmental venous anomaly superior right frontal lo be. Slight mucosal thickening in the paranas al sinuses. IMPRESSION: 1. No evidence of intracranial metastati c disease. 2. The previously described tiny enhanci ng areas most likely represent vascular lesions/vessels. 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 documented in this encounter
--- OUTSIDE RECORDS SUMMARY | 2022-02-01 13:15 | XMS_ITS | Encounter Summary ---
:1960 Author Organization [facility] Address [address] [place] [id number] Care Team Providers Name Role Phone Unavailable Primary Care Provider Unavailable Encounter Details Date Type Department Care Team Description 09/08/2021 Patient Outreach Department [place] M.S.N., R.N., [address] [facility] [place] [phone] [address] [place] [address] [place] [address] Social History Tobacco Use Types Packs/Day Years Used Date Smoking Tobacco: Former Cigarettes 1 34 Quit : 08/27/2021 Smokeless Tobacco: Never Alcohol Habits Answer [...] or relatives? How often do you attend holiness or Never 2021 taoism services? Do you belong to any clubs or No 08/23/2021 organizations such as holiness groups, unions, fraternal or athletic groups, or [...] Neoplasm Of Right Main Bronchu s (HCC) - Primary documented in this encounter
--- OUTSIDE RECORDS SUMMARY | 2022-02-01 13:15 | XMS_ITS | Encounter Summary ---
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) [facility] [address] [place] [phone] Referral ID Status Reason Start Date Expiration Date Visits Requ ested Visits Authorized [id number] Closed 09/01/2021 09/01/2022 1 1 Scheduling Instructions Patient would like to be called once norbert ointments scheduled Reason for Visit Outpatient (Routine) - Closed Specialty Diagnoses / Procedures Referred By Contact Refer red To Contact Radiation Oncology Diagnoses 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 Malignant Neoplasm Of Bronchus And Lung Multiple Site Right (HCC) in [address] [place] [phone] [place], [place] [phone] (Work) [phone] Social History Tobacco Use Types Packs/Day Years [...] or relatives? How often do you attend nondenominational or Never 2021 confucianism services? Do you belong to any clubs or No 08/23/2021 organizations such as nondenominational groups, unions, fraternal or athletic groups, or [...] place to sleep or slept in a prison (including now)? Education Answer Date Recorded What is the highest level of school Associate degree: julieta arreaga, 08/23/2021 you have completed or the highest technical, or vocational p rogram degree you have received? Sex Assigned at Date Recorded Male 08/23/2021 10:27 AM CDT documented as of this encounter Last Filed Vital Signs Vital Sign Reading Time Taken Comments Blood Pressure - - Pulse - - Temperature - - Respiratory Rate - - Oxygen Saturation - - Inhaled Oxygen Concentration - - Weight 80 kg (176 lb 5.9 oz) 09/10/2021 10:15 AM CDT Height - - Body Mass Index 29.42 08/27/2021 9:57 AM CDT documented in this encounter Medications [...] documented as of this encounter Consult Notes Anand Estrada APRN, C.N.P. - 09/10/2021 10:30 AM CDT Images from the original note were not included. SUBJECTIVE RADIATION ONCOLOGY CONSULT NOTE REQUESTING PROVIDER Radha Moore M.D. SUPERVISING PHYSICIAN Lamar Roque MD, PhD ([phone]). 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 Asked to see patient with a recently diagnosed stage IIIB, [id number] vs stage IIIC [id number] right middle lobe lung adenocarcinoma for evaluation for radiation therapy. HISTORY OF PRESENT ILLNESS: History was obtained from the patient and his . Mr. Hector Norris is a 61-year-old male who was recently diagnosed with astage IIIB, [id number] middle lobe lung adenocarcinoma. He is a former smoker with a 34 pack-year smoking history having quit on 07/28/2021. His oncologic history is as follows: Oncology [...] of the left pulmonary hilum 08/28/2021 Biopsy/Pathology Lymph node, station 7, EBUS-FNA: positive for metastatic adenocarcinoma Lung, RML bronchus, biopsy: positive for adenocarcinoma Lymph node station 4L negative. 08/28/2021 Genetic Testing and Tumor Genotyping [facility] pndg Too few cells to evaluate PD-L1 expression. 09/10/2021 Imaging MR Brain - IMPRESSION: 1. No evidence of intracranial metastatic disease. 2. The previously described tiny enhancing areas most likely represent vascular lesions/vessels. INTERVAL HISTORY: Mr. Hector Norris comes to Radiation Oncology today for evaluation for possible radiation therapy for a right middle lobe lung cancer. Symptomatically, Mr. Norris reports he has a productive cough and in the last two weeks he has developed small amounts of hemoptysis with the phlegm that is more in the morning and clears see as the daygoes on. He has been taking Tessalon Perles as well as Robitussin with codeine which he usually takes at bedtime because the codeine makes him too sleepy. He does report having some central chest pain related to the tumor. He denies any other new onset of chest pain, heart palpitations, or worsening shortness of breath. Mr. Norris denies any new focal neurologic deficits, but he states that he has hada few episodes of double vision in the past three weeks as well as some headaches that resolve with the use of acetaminophen. He states he does does not awaken with headaches; he thinks that the headaches are more stress related because of his diagnosis. He denies any fevers, drenching night sweats, new lumps, new bony pain, new bowel or bladder problems. He has smoked marijuana in the past but not since his diagnosis. He occasionally will use gummy bears with marijuana; he states that if he has toomuch of that he does experience heart palpitations. He quit smoking on July 28, 2021, and he states he did not have any difficulty with quitting due to his diagnosis of lung cancer. Mr. Norrsi states that he can lie on his back or on his right side without any problems. However if he lies on his left side, he experiences right-sided chest pain. He states that he has a good appetite and his weight has remained stable. His states that he complains of feeling roper faster. Mr. Norris denies any prior history of radiation therapy. He is interested in receiving treatment at [facility] as well as potential radiation therapy at our outreach radiation oncology practice in [place], [place]. REVIEW OF SYSTEMS: A complete 14-point review of systems was performed, and the pertinent positives have been described above. Constitutional: Positive for fatigue, loss of appetite and night sweats. Respiratory: Positive for coughing up mucus (phlegm), dry cough, dyspnea and wheezing. Cardiovascular: Positive for chest pain, pressure or tightness, swelling in the legs or feet and rapid or fluttering heart beat. Genitourinary: Positive for difficulty urinating. Musculoskeletal: Positive for arthralgias, pain or stiffness in the joints, joint swelling and muscle pain/stiffness. Neurological: Positive for excessive daytime sleepiness. Psychiatric/Behavioral: Positive for excessive daytime sleepiness/tiredness and little interest or pleasure in doing things over past two weeks. The following systems were negative: Skin, Eyes, ENT, GI, Hematologic Medications: Reviewed and updated today. Allergies: Reviewed and updated today. Radiation History: No. Prior cancer: Prostate cancer s/p prostatectomy in 2015. Pacemaker: No. PAST MEDICAL HISTORY: ??? Impotence of organic origin ??? Erectile Dysfunction ??? Low back pain ??? Prostate cancer (HC) ??? RA (rheumatoid arthritis) (HC) ??? ROTATOR CUFF DISORDER, OTHER 05/06/2006 partial tear of distal subscapularis tendon and biceps tendinitis. No prior history of lupus or scleroderma. PAST SURGICAL HISTORY: ??? Prostatectomy 2015 SOCIAL HISTORY: Social History Socioeconomic History ??? Marital status: ??? Highest education level: Associate degree: occupational, technical, or vocational program Tobacco Use ??? Smoking status: Former Smoker Packs/day: 1.00 Years: 34.00 Pack years: 34.00 Types: Cigarettes Quit date: 08/27/2021 Years since quittin.0 ??? Smokeless tobacco: Never Used Social Determinants of Health Financial Resource Strain: Unknown ??? Difficulty of Paying Living Expenses: Patient refused Food Insecurity: Unknown ??? Worried About Running Out of Food in the Last Year: Patient refused ??? Ran Out of Food in the Last Year: Patient refused Transportation Needs: No Transportation Needs ??? Lack of Transportation (Medical): No ??? Lack of Transportation (Non-Medical): No Physical Activity: Sufficiently Active ??? Days of Exercise per Week: 5 days ??? Minutes of Exercise per Session: 60 min Stress: No Stress Concern Present ??? Feeling of Stress : Only a little Social Connections: Moderately Isolated ??? Frequency of Communication with Friends and Family: More than three times a week ??? Frequency of Social Gatherings with Friends and Family: Once a week ??? Attends Yazdanism Services: Never ??? Active Member of Clubs or Organizations: No ??? Attends Club or Organization Meetings: Never ??? Marital Status: Intimate Partner Violence: Not At Risk ??? Fear of Current or Ex-Partner: No ??? Emotionally Abused: No ??? Physically Abused: No ??? Sexually Abused: No Housing Stability: Unknown ??? Unable to Pay for Housing in the Last Year: Patient refused ??? Number of Places Lived in the Last Year: 1 ??? Unstable Housing in the Last Year: No Tobacco: Prior cigarette smoking having quit on 07/28/2021. Alcohol: Beer, 12 pack per week Recreation Drugs: He used to smoke marijuana but now will use marijuana gummy bears. 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 FAMILY HISTORY: ??? Cancer-prostate Father ??? Lung cancer Father PHYSICAL EXAM: VITALS: There were no vitals filed for this visit. Pain: 3 of 10. Location: Central chest. SpO2: 98% on room air at rest. Pulse: 64. ECOG performance status of 0. GENERAL: This is a well and fit-appearing male in no acute distress who converses well. Alert and oriented x 3. Eyes: Sclerae anicteric. ENT: Neck is supple without masses. Lymph: No cervical, supraclavicular, infraclavicular, axillary or epitrochlear lymphadenopathy palpable. LUNGS: Clear to auscultation bilaterally, no crackles, wheezes or rhonchi. No accessory muscle use. Possible slight dullness noted in mid right posterior lung field with percussion. HEART: Regular rate and rhythm, no murmurs, rubs or gallops. ABDOMEN: Soft, non-tender, non-distended. MUSCULOSKELETAL: No spinal point tenderness with palpation or percussion. EXTREMITIES: Warm and well perfused, no upper or lower extremity edema noted. SKIN: No concerning skin lesions. No jaundice. LABS: Lab Results Component Value Date WBC 8.7 08/26/2021 HGB 12.1 (L) 08/26/2021 HCT 37.3 (L) 08/26/2021 RBC 4.10 (L) 08/26/2021 MCV 91.0 08/26/2021 MCH 31.5 08/01/2021 MCHC 34.7 08/01/2021 RDW 11.7 (L) 08/26/2021 MPV 9.5 08/01/2021 Lab Results Component Value Date ALT 8 08/26/2021 AST 19 08/26/2021 ALKPHOS 115 08/26/2021 BILITOT 0.4 08/26/2021 Lab Results Component Value Date CREATININE 0.95 08/26/2021 BUN 14 08/26/2021 NA 136 08/26/2021 CL 100 08/26/2021 CO2 25 03/05/2021 GLUCOSE 84 08/26/2021 CALCIUM 9.7 08/26/2021 RADIOLOGY: I personally reviewed the radiology images. PATHOLOGY: I personally reviewed the pathology findings. ASSESSMENT AND PLAN: Mr. Hector Norris is a 61-year-old male with a recent diagnosis a stage IIIB, [id number] vs stage IIIC [id number] right middle lobe lung adenocarcinoma for evaluation for radiation therapy. I informed and Mrs. Norris that the brain MRI done this morning does not reveal any evidence of metastaticdisease in the brain. They expressed relief with the news. I explained to and Mrs. Norris the role of radiation therapy for local control of tumor as opposed to chemotherapy being both a local and systemic treatment. I noted that with a locally advanced lung cancer, radiation therapy is given with concurrent chemotherapy and the chemotherapy given during radiation therapy acts as a radiosensitizerincreasing the effectiveness the radiation against the tumor. I reviewed his PET/CT scan and CT chest scan with them noting the extent of the tumor. I stated that sometimes induction chemotherapy is recommended before proceeding with chemoradiation due to the size of the tumor and the size of the potential radiation treatment field. If induction chemotherapy is recommended, then restaging imaging would be done before consideration of proceeding with chemoradiation therapy. Mr. Norris asked if he could receive treatment at our outreach radiation oncology practice in [place], [place]. I stated that we could refer him to them when it is time to proceed with radiation therapy. We also discussed the potential for proton beam radiation therapy as an option for treatment if necessary which could only be done in [place]. I informed them of the potential acute side effects from radiation therapy including but not limited to fatigue, esophagitis, cough, and an approximate 8-15% risk of radiation pneumonitis. All of their questions were answered to the best my ability and to their apparent satisfaction. Mr. Hector Norris was also seen and evaluated by Dr. Lamar Roque in my presence. Please refer to her attestation for her recommendations regarding the role of radiation therapy including the risks and benefits with treatment. We informed the patient that we will discuss his case at our Lung tumor Board this afternoon prior to his meeting with Dr. Juarez of Medical Oncology. Depending on the recommendations of the Lung tumor Board, we will determine if he starts with induction chemotherapy versus chemoradiation. Mr. Norris and his both verbalized understanding of our discussion and agreement with the current plan of care for treatment. EDUCATION Ready to learn, no apparent learning barriers were identified; learning preferences include listening. Explained diagnosis and treatment plan; patient expressed understanding of the content. CONSENT Discussed the risks, benefits, alternatives, and the necessity of other members of the healthcare team participating in the procedure. All questions answered and consent given. I personally spent 62 minutes in care of the patient today. Time includes both non face to face and face to face patient care. Electronically signed by: Dedrick Estrada APRN, C.N.PAllen 09/10/21 8:07 AM CDT I was asked by Radha Moore M.D. for an opinion regarding the role of radiation therapy in the management of the patient's disease. I saw and evaluated the patient and I participated in the hernandez portions of the service. I reviewed the documentation of Mr. Estrada and I agree with the findings and plan. Mr. Hector Norris is a 61 y.o. 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 Screen capture of his current disease (PET-CT 08/13/2021): We reviewed Mr. Norris's imaging at our multidisciplinary lung tumor board. Given his extensive nodalinvolvement, bulky disease and high risk of occult distant metastasis at this time, we recommended starting with systemic therapy and restaging. If he has a good response without any new metastatic disease, we can consider consolidative/definitive chemoradiation at that time. Cytoreduction would also facilitate photon radiation as he is interested in treatment at our [place] facility. We will see Mr. Norris again after 2-3 months of systemic therapy with restaging imaging to reassess him for chemoradiation. Lamar Roque MD, PhD Single Corner Cutter Heavy Duty Mechanic Department of Radiation Oncology [facility] documented in this encounter Miscellaneous Notes Addendum Note - Lamar Roque M.D., Ph.D. - 09/10/2021 10:30 AM CDT Encounter addended by: Lamar Roque M.D., Ph.D. on: 09/10/2021 3:49 PM Actions taken: Clinical Note Signed, Cosign clinical note, Letter saved documented in this encounter Plan of Treatment Scheduled Referrals Name Type Priority Associated Order Schedule Diagnoses Radiation Oncology Outpatient Referral Routine Malignant Neopl asm Once for 1 - Lung consult Of Bronchus And Occurrence s starting (clinic) Lung Multiple Site 2 until Right (HCC) 09/10/2021 documented as of this encounter Visit Diagnoses Diagnosis Malignant Neoplasm Of Right Main Bronchu s (HCC) - Primary Malignant Neoplasm Of Bronchus And Lung Multiple Site Right (HCC) documented in this encounter
--- OUTSIDE RECORDS SUMMARY | 2022-02-01 13:15 | XMS_ITS | Encounter Summary ---
:1960 Author Organization [facility] Address [address] [place] [id number] Care Team Providers Name Role Phone Unavailable Primary Care Provider Unavailable Encounter Details Date Type Department Care Team Description 09/01/2021 Lab RST RO Radha Liriano, Malignant Neoplasm Of [address] [place] [address] [place] [phone] 200 [facility] Multiple Site Right [place], [place] ([facility]) [id number] (Wo rk) Social History Tobacco Use Types Packs/Day Years Used Date Smoking Tobacco: Former Cigarettes Quit : 08/27/2021 Smokeless Tobacco: Never Alcohol [...] or relatives? How often do you attend episcopalian or Never 2021 mandaeism services? Do you belong to any clubs or No 08/23/2021 organizations such as episcopalian groups, unions, fraternal or athletic groups, or [...] place to sleep or slept in a detention (including now)? Education Answer Date Recorded What [...] Name Priority Date/Time Associated Diagnosis Comme nts SOLID TUMOR Routine 08/28/2021 12:14 PM Malignant Neoplasm Re sults for this TARGETED CANCER CDT Of Bronchus And Lung proc edure are in PANEL Multiple Site Right the resu lts (HCC) section. documented in this encounter Results Solid Tumor Targeted Cancer Gene Panel by Next Generation Sequencing (08/28/2021 12:14 PM CDT) Component Value Ref Test Analysis Performed Pathologis t Range Method Time At Signature Result Provided diagnosis: Lung adenocarcinoma 09/16/2021 DTL 12:47 PM The following alteration was identified: CDT Gene: KRAS DNA change: c.35G>A Amino Acid change: p.G12D ([id number]) Classification: MUTATION No additional reportable alterations were identified within the analyzed regions of the tested genes listed in the method description. Released By Justo Sierra, 09/16/2021 DTMonroe Spencer 12:47 PM CDT Additional CLINICAL TRIALS 09/16/2021 DTL Information Possible clinical trials of benefit for this patient c an be 12:47 PM found at the following sites: CDT 1) ClinicalTrials.gov: www.clinicaltrials.gov/ct2/search/advanced 2) [facility]: www.[facility]/research/clinical-trials/ 3) National Cancer [place]: www.cancer.gov/clinicaltrials/search REFERENCE TRANSCRIPT(S) Mutation nomenclature is based on the following GenBank accession number(s) (build GRCh37 (hg19)): KRAS [id number]. Specimen Cells 09/16/2021 DTL 12:47 PM CDT Tissue ID [id number] 09/16/2021 DTL (smears 3 and 6) 12:47 PM CDT Interpretation ASSOCIATIONS BETWEEN KRAS MUTATIONS AND LUNG CANCER 09/16/2021 DTL Approximately 20% of patients with lung adenocarcinoma have 12:47 PM a somatic mutation in the KRAS gene (1). KRAS mutations, CDT primarily those occurring at codons 12, 13, and 61, result in constitutive activation of the JOLLY/MAPK signaling pathway (2-5). Current data suggests that the efficacy of EGFR-targeted therapies in lung cancer is limited to patients with tumors lacking KRAS mutations. Thus, the detection of a non-G12C KRAS activating mutation within this tumor suggests that EGFR-targeted therapies may have limited therapeutic value for this patient (2). REFERENCES 1. cancer.[email or web address].ac.uk/cancergenome/projects/cosmic/ 2. Caitlin Rev Clin Oncol. 2010Dec 15;8(11):661-8 (PMID 87819568) 3. Int J Cancer 2011;131(5):O341-707 (PMID [id number]) 4. Mod Pathol. 2008 August; Suppl 2:S16-22 (PMID [id number]) 5. J Clin Oncol. 2005 Dec 24;23(25):5886-9 (PMID [id number]) Comment: ----ADDITIONAL INFORMATION---- Microscopic examination was performed by a pathologist to identify areas of tumor for enrichment by macrodissection. Next generation sequencing is performed to test for the presence of a mutation within targeted regions of the following genes: ABL1, AKT1, ALK, AP C, COOPER, BRAF, CDH1, CDKN2A, CSF1R, CTNNB1, EGFR, ERBB2, ERBB4, EZH2, FBXW7, FGFR1, FGFR2, FGFR3, FLT3, GNA11, GNAQ, GNAS, HNF1A, HRAS, IDH1, IDH2, VLAD 2, JAK3, KDR, KIT, KRAS, MET, MLH1, MPL, NOTCH1, NPM1, NRAS, PDGFRA, PIK3CA, PTEN, PTPN11, RB1, RET, SMAD4, SMARCB1, SMO, SRC, STK11, TP53, and VHL. Mutation nomenclature is based on build GRCh37 (hg19). For details about gene reference transcripts (GenBank accession numbers) and additional information about this test, see www.[employer] (Test ID CAPN). CLINICAL CORRELATIONS Test results should be interpreted in co ntext of clinical findings, tumor sampling, histopathology, and other labo ratory data. If results obtained do not match other clinical or laboratory f indings, please contact the laboratory for possible interpretation. Misinterpretation of results may occur if the information provided is mel ccurate or incomplete. The presence or absence of a mutation ma y not be predictive of response to therapy in all patients. TECHNICAL LIMITATIONS This test does not detect large insertio ns, deletions, or duplications or genomic copy number variants. This assay has been shown to detect >99% of single base substitutions and >93% of known COSMIC insertions and mansi tions up to 22bp in length within the reportable range of this assay. A negative (wild type) result does not r ule out the presence of a mutation that may be present but below the limits of detection of this assay. The analytical sensitivity of this assay is 5-10% with a minimum coverage of 100X. Rare polymorphisms may be present that c ould lead to false negative or false positive results. This test cannot differentiate between s omatic and germline alterations. Additional testing may be necessary to c larify the significance of results if there is a potential hereditary risk. Metastatic and corresponding primary les ions may have discordant results. TEST CLASSIFICATION This test was developed and its performa nce characteristics determined by [facility] in a manner consistent with CLIA requirements. This test has not been cleared or approved by the [place] d and Drug Administration. Specimen Anatomical Collection Method Collection Time Receive d Time (Source) Location / / Volume Laterality Varies (Lung) 08/28/2021 12:14 09/03/2021 4:50 PM CDT PM CDT Narrative This result has an attachment that is no t available. Radha Moore M.D. 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
--- OUTSIDE RECORDS SUMMARY | 2022-02-01 13:15 | XMS_ITS | Encounter Summary ---
:[address] [facility] Address [address] [place] [address] Care Team Providers Name Role Phone Unavailable Primary Care Provider Unavailable Encounter Details Date Type Department Care Team Description 08/28/2021 Ancillary Procedure Department of Pulmonary and CC Medicine Social History Tobacco Use Types Packs/Day Years [...] do you attend mosque or Never 2021 buddhist services? Do you belong to any clubs [...] Name Priority Date/Time Associated Diagnosis Comme nts PULMONARY AND CC Routine 08/28/2021 8:50 AM Resul ts for this MEDICINE IMAGE EXAM CDT procedur e are in the results section. documented in this encounter Results EBUS-Pulmonary And CC Medicine Image Exam (08/28/2021 8:50 AM CDT) Specimen (Source) Anatomical Collection Method Collection Time Re ceived Time Location / / Volume Laterality 08/28/2021 8:47 AM CDT Narrative [facility] - 08/28/2021 10:13 AM CDT This order has been created and auto-finalized to support the import of images acquired without order. The clini rafal documentation to support these images can be found on the encounter manuel t produced images. Provider Not In System IMG NON RAD IMAGING PROCEDUR ES Performing Organization Address City/State/ZIP Code Phon e Number [facility] NA documented in this encounter Visit Diagnoses Not on filedocumented in this encounter
--- OUTSIDE RECORDS SUMMARY | 2022-02-01 13:15 | XMS_ITS | Encounter Summary ---
:1960 Author Organization [facility] Address [address] [place] [address] Care Team Providers Name Role Phone Unavailable Primary Care Provider Unavailable Encounter Details Date Type Department Care Team Description 09/04/2021 Orders Only Division of Pulmonary Radha Moore Malignant Neoplasm Of Medicine in B, M.D. Bronchus And Lung [place], [place] [address] [facility] Multiple Site Right [address] [place], [place] (HCC) (Primary Dx) [place] [phone] Social History Tobacco Use Types Packs/Day Years [...] or relatives? How often do you attend moravian or Never 2021 restorationism services? Do you belong to any clubs or No 08/23/2021 organizations such as moravian groups, unions, fraternal or athletic groups, or [...] Bronchus And Lung Multiple Site Right (HCC) - Primary documented in this encounter
--- OUTSIDE RECORDS SUMMARY | 2022-02-01 13:15 | XMS_ITS | Encounter Summary ---
:1960 Author Organization [facility] Address [address] [place] [address] Care Team Providers Name Role Phone Unavailable Primary Care Provider Unavailable Encounter Details Date Type Department Care Team Description 08/27/2021 Ancillary Department of Radha Moorep lasm Procedure Radiology in Radha Ladd M.D. Of Bronchus And Lung [place], [facility] [facility] Multiple Site Right [place], [place] ([facility]) [address] [place] [address] [place], [place] [phone] [phone] (Work) Social History Tobacco Use Types Packs/Day Years [...] or relatives? How often do you attend voodoo or Never 2021 samaritan services? Do you belong to any clubs or No 08/23/2021 organizations such as voodoo groups, unions, fraternal or athletic groups, or [...] place to sleep or slept in a nursing home (including now)? Education Answer Date Recorded [...] Procedure Name Priority Date/Time Associated Comments Diagnosis INTERPRETATION OF RAD - Routine 08/27/2021 7:58 Malignant Result s for OUTSIDE NM PET SCAN (most inpatients AM CDT Neoplasm Of this procedure and all Bronchus And are in the outpatients) Lung Multiple results Site Right (HCC) section. documented in this encounter Results Interpretation of Outside NM PET Scan (08/27/2021 7:58 AM CDT) Anatomical Region Laterality Modality Nuclear Medicine PET RST LOS, Nuclear Medicine ARZ LOS, N/A Nuclear Medicine Nuclear Medicine FLA LOS, Nuclear Medicine, Other, Neuroradiology ARZ LOS, Neuroradiology FLA LOS, Neuroradiology RST LOS Specimen (Source) Anatomical Collection Method Collection Time Re ceived Time Location / / Volume Laterality 08/31/2021 9:30 AM CDT Impressions 08/31/2021 9:47 AM CDT Large right middle lobe FDG avid lung mass consistent with malignancy. Metastatic lymphadenopathy involving the right hilu m, right supraclavicular fossa and mediastinum. Possible involvement of the left pulmonary hilum. No other concerning FDG avid distant metastatic disease. Narrative 08/31/2021 9:47 AM CDT EXAM: ??INTERPRETATION OF OUTSIDE NM PET SCAN dated 08/13/2021. TECHNIQUE: ??F-18 FDG PET/CT scan obtain ed from the lower calvarium through the mid thighs at approximately 54 minutes following intra venous injection of 8.[address] component was acquired for attenuation correction and anatomic fusion. COMPARISON: ??Outside chest CT dated 11/2021. INDICATION: Right lung mass. Evaluate fo r metastases. Initial treatment strategy. FINDINGS: ??There is a lobulated approxi mately 4.5 x 3.3 cm proximal right middle lobe FDG avid mass with SUV max of 20.2. This causes some p artial collapse of the right middle lobe. There is contiguous uptake in the metast atic lymph nodes involving the right pulmonary hilum. Additional FDG avid metastatic lymphaden opathy present in the subcarinal space, right lower paratracheal region, with a separate FDG avid right upper paratracheal lymph node. Additional small FDG avid lymph node in the posterolatera l right anterior mediastinal region abutting the ascending thoracic aorta. There is suspicious mild activity in the posterior aspects of the right sternoclavicular fossa and in the left pulmonary hilum. No abnormal uptake in the liver or adren als. Reactive uptake about the hips and shoulders. No obvious focal FDG avid bone lesions. Phy siologic bowel activity. Additional incidental CT findings: Minor emphysematous changes and atelectasis in the lungs. Vascular and coronary artery calcificati ons. Prostatectomy. Lumbar spine fusion hardware. DJD spine. Bilateral renal cysts. Colonic diverticu la. Procedure Note James Conrad M.D. - 08/31/2021Format ting of this note might be different from the original. EXAM: INTERPRETATION OF OUTSIDE NM PET S CAN dated 08/13/2021. TECHNIQUE: F-18 FDG PET/CT scan obtained from the lower calvarium through the mid thighs at approximately 54 minutes following intra venous injection of 8.[address] component was acquired for attenuation correction and anatomic fusion. COMPARISON: Outside chest CT dated 07/31. INDICATION: Right lung mass. Evaluate fo r metastases. Initial treatment strategy. FINDINGS: There is a lobulated approxima tely 4.5 x 3.3 cm proximal right middle lobe FDG avid mass with SUV max of 20.2. This causes some p artial collapse of the right middle lobe. There is contiguous uptake in the metast atic lymph nodes involving the right pulmonary hilum. Additional FDG avid metastatic lymphaden opathy present in the subcarinal space, right lower paratracheal region, with a separate FDG avid right upper paratracheal lymph node. Additional small FDG avid lymph node in the posterolatera l right anterior mediastinal region abutting the ascending thoracic aorta. There is suspicious mild activity in the posterior aspects of the right sternoclavicular fossa and in the left pulmonary hilum. No abnormal uptake in the liver or adren als. Reactive uptake about the hips and shoulders. No obvious focal FDG avid bone lesions. Phy siologic bowel activity. Additional incidental CT findings: Minor emphysematous changes and atelectasis in the lungs. Vascular and coronary artery calcificati ons. Prostatectomy. Lumbar spine fusion hardware. DJD spine. Bilateral renal cysts. Colonic diverticu la. IMPRESSION: Large right middle lobe FDG avid lung ma ss consistent with malignancy. Metastatic lymphadenopathy involving the right hilu m, right supraclavicular fossa and mediastinum. Possible involvement of the left pulmonary hilum. No other concerning FDG avid distant metastatic disease. 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
--- OUTSIDE RECORDS SUMMARY | 2022-02-01 13:15 | XMS_ITS | Encounter Summary ---
:1960 Author Organization [facility] Address [address] [place] [address] Care Team Providers Name Role Phone Unavailable Primary Care Provider Unavailable Encounter Details Date Type Department Care Team Description 09/14/2021 Education Department of Patient Gabriele Juarez M.D., Ph.D. [address] [place] [address] Malignant Neoplasm Of Education in [facility], Mikayla ColbertSAllenN., R.N. [address] [place] [address] Bronchus And Lung [place] Multiple Site Left [address] [place] [address] ([facility]) [place] [phone] Social History Tobacco Use Types Packs/Day Years [...] or relatives? How often do you attend confucianist or Never 2021 catholic services? Do you belong to any clubs or No 08/23/2021 organizations such as confucianist groups, unions, fraternal or athletic groups, or [...]
--- OUTSIDE RECORDS SUMMARY | 2022-02-01 13:15 | XMS_ITS | Encounter Summary ---
:1960 Author Organization [facility] Address [address] [place] [address] Care Team Providers Name Role Phone Unavailable Primary Care Provider Unavailable Encounter Details Date Type Department Care Team Description 09/10/2021 Clinical Communication Department of Radiation Messi Roque, Oncology in [place], [place], Ph. D. [place] [address] [address] [facility] [address] [place] [address] [phone] Social History Tobacco Use Types Packs/Day Years [...] or relatives? How often do you attend scientology or Never 2021 catholic services? Do you belong to any clubs or No 08/23/2021 organizations such as scientology groups, unions, fraternal or athletic groups, or [...] this encounter Miscellaneous Notes Telephone Encounter - Lamar Roque M.D., Ph.D. 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 Hector Norris is a 61 y.o. 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 We reviewed Mr. Norris's imaging in detail. He has extensive adenopathy including an ipsilateral prevascular node. The group consensus was to start with induction systemic therapy and restage. If he hasa good response with no new metastatic disease, we can consider definitive chemoradiation. The left hilar node has not been biopsied but the level of suspicion was moderate to low. The radiation field would likely focus on the ipsilateral FDG avid disease and we would monitor the left hilum if he is acandidate for chemoradiation post systemic therapy. Lamar Roque MD, PhD Black Belt [employer]ized Finish Plater Department of Radiation Oncology [facility] documented in this encounter Plan of Treatment Not on filedocumented as of this encounter Visit Diagnoses Not on filedocumented in this encounter
--- OUTSIDE RECORDS SUMMARY | 2022-02-01 13:15 | XMS_ITS | Encounter Summary ---
:1960 Author Organization [facility] Address [address] [place] [address] Care Team Providers Name Role Phone Unavailable Primary Care Provider Unavailable Encounter Details Date Type Department Care Team Description 08/26/2021 Hospital Encounter Department of Catia Potter Neoplasm Of Bronchus And Lung Multiple Site Right (HCC); Laboratory Medicine [place]. [facility] Lung [facility] Pathology, [address] [place] [address], in [place], [place] [address] [place] [address] [place], [place] (Work) [address] [phone] Social History Tobacco Use Types Packs/Day Years Used Date Smoking Tobacco: Never Assessed Alcohol Habits Answer Date Recorded How often [...] do you attend taoist or Never 2021 holiness services? Do you belong to any clubs [...] minutes do you engage in exercise at is 60 min 08/23/2021 level? Stress Answer [...] highest technical, or vocational [facility] [place] degree you have received? Sex Assigned at Date Recorded Male 08/23/2021 10:27 AM CDT documented as of this encounter Medications at Time of Discharge Medication Sig Dispensed Refills Start Date End Date codeine-guaiFENesin Take 10 mL by mouth. 0 2021 (ROBITUSSIN-AC) 10-100 mg/5 mL liquid escitalopram (LEXAPRO) Take 10 mg by mouth. 0 10 mg tablet escitalopram (LEXAPRO) Take 10 mg by mouth 0 07/24 10 mg tablet daily. omeprazole (PriLOSEC) 40 omeprazole 40 mg capsule,delayed release 0 06/23/[address] capsule TAKE ONE CAPSULE BY MOUTH ONCE DAILY before a meal tadalafiL (CIALIS, tadalafil 20 mg tablet 0 ADCIRCA) 20 mg tablet TAKE ONE TABLET BY MOUTH NEEDED TIMED AROUND SEXUAL ACTIVITY albuterol 90 Inhale 2 puffs. 0 06/04/2021 022 mcg/actuation inhaler fluticasone Inhale 1 puff 2 (two) 0 06/23/2021 propion-salmeteroL times a day. 250-50 mcg/dose diskus inhaler fluticasone propionate Administer 2 sprays 0 06/2408/27/2021 (FLONASE) 50 into nostril(s). mcg/actuation nasal spray HYDROcodone-chlorphenira Take 5 mL by mouth. 0 08/27/2021 mine (TUSSIONEX PENNKINETIC) 10-8 mg/5 mL ER suspension documented as of this encounter Plan of Treatment Not on filedocumented as of this encounter Procedures Procedure Name Priority Date/Time Associated Comments Diagnosis CBC WITH DIFFERENTIAL, Routine 08/26/2021 10:16 Malignant Neop lasm Results for this B AM CDT Of Bronchus And procedure ar e in Lung Multiple Site the resul ts Right (HCC) section. Mass Lung COMPREHENSIVE Routine 08/26/2021 10:16 Malignant Neoplasm Resu lts for this METABOLIC PANEL, S/P AM CDT Of Bronchus And proc edure are in Lung Multiple Site the resul ts Right (HCC) section. Mass Lung documented in this encounter Results Comprehensive Metabolic Panel (08/26/2021 10:16 AM CDT) P athologist Signature Potassium, S 4.5 3.6 - 5.2 08/26/2021 DTL mmol/L 11:12 AM CDT Sodium, S 136 135 - 145 08/26/2021 DTL mmol/L 11:12 AM CDT Chloride, S 100 98 - 107 08/26/2021 DTL mmol/L 11:12 AM CDT Bicarbonate, S 25 22 - 29 08/26/2021 DTL mmol/L 11:12 AM CDT Anion Gap 11 7 - 15 08/26/2021 DTL 11:12 AM CDT BUN (Blood Urea 14 8 - 24 08/26/2021 DTL Nitrogen), S mg/dL 11:12 AM CDT Creatinine 0.95 0.74 - 08/26/2021 DTL 1.35 mg/dL 11:12 AM CDT eGFR-Non 86 >=60 08/26/2021 DTL Black/ mL/min/BSA 11:12 AM CDT [place] Comment: ----ADDITIONAL INFORMATION---- Estimated GFR calculated using the 2009 CKD_EPI creatinine equation. eGFR-Black/ >90 >=60 mL/min/BSA 2021 11:12 AM CDT DTL Comment: ----ADDITIONAL INFORMATION---- Estimated GFR calculated using the 2009 CKD_EPI creatinine equation. Calcium, Total, S 9.7 8.8 - 10.2 mg/dL 08/26/2021 11:1 2 AM CDT DTL Glucose, S 84 70 - 140 mg/dL 08/26/2021 11:12 AM CDT DTL Protein, Total, S 6.4 6.3 - 7.9 g/dL 08/26/2021 11:12 AM CDT DTL Albumin, S 3.8 3.5 - 5.0 g/dL 08/26/2021 11:12 AM CDT DTL Aspartate Aminotransferase 19 8 - 48 U/L 08/26/2021 1 1:12 AM CDT DTL (AST), S Alkaline Phosphatase, S 115 40 - 129 U/L 08/26/2021 11 :12 AM CDT DTL Alanine Aminotransferase (ALT), 8 7 - 55 U/L 022 11:12 AM CDT DTL S Bilirubin, Total, S 0.4 <=1.2 mg/dL 08/26/2021 11:12 A M CDT DTL Specimen Anatomical Collection Method Collection Time Receive d Time (Source) Location / / Volume Laterality Blood (Blood, 08/26/2021 10:16 08/26/2021 Venous) AM CDT 10:48 AM CDT Sharad Potter M.D. LAB BLOOD ADD-ON Performing Organization Address City/State/ZIP Code Phon e Number [facility] - [address] [place], [place] [address] [facility] [place] [address] [facility] [address] [facility] (ABNORMAL) CBC with Differential, Blood (08/26/2021 10:16 AM CDT) [facility] gist Method Time Signature Hemoglobin 12.1 (L) 13.2 - 08/26/2021 DTL 16.6 g/dL 10:49 AM CDT Hematocrit 37.3 (L) 38.3 - 08/26/2021 DTL 48.6 % 10:49 AM CDT Erythrocytes 4.10 (L) 4.35 - 08/26/2021 DTL 5.65 10:49 AM CDT x10(12)/L MCV 91.0 78.2 - 08/26/2021 DTL 97.9 fL 10:49 AM CDT RBC Distrib Width 11.7 (L) 11.8 - 08/26/2021 DTL 14.5 % 10:49 AM CDT Platelet Count 571 (H) 135 - 317 08/26/2021 DTL x10(9)/L 10:49 AM CDT Leukocytes 8.7 3.4 - 9.6 08/26/2021 DTL x10(9)/L 10:49 AM CDT Neutrophils 6.28 1.56 - 08/26/2021 DTL 6.45 10:49 AM CDT x10(9)/L Lymphocytes 1.36 0.95 - 08/26/2021 DTL 3.07 10:49 AM CDT x10(9)/L Monocytes 0.94 (H) 0.26 - 08/26/2021 DTL 0.81 10:49 AM CDT x10(9)/L Eosinophils 0.12 0.03 - 08/26/2021 DTL 0.48 10:49 AM CDT x10(9)/L Basophils <0.03 0.01 - 08/26/2021 DTL 0.08 10:49 AM CDT x10(9)/L Specimen Anatomical Collection Method Collection Time Receive d Time (Source) Location / / Volume Laterality Blood (Blood, 08/26/2021 10:16 08/26/2021 Venous) AM CDT 10:34 AM CDT Sharad Potter M.D. LAB BLOOD ADD-ON Performing Organization Address City/State/ZIP Code Phon e Number 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
--- OUTSIDE RECORDS SUMMARY | 2022-02-01 13:15 | XMS_ITS | Encounter Summary ---
:1960 Author Organization [facility] Address [address] [place] [address] Care Team Providers Name Role Phone Unavailable Primary Care Provider Unavailable Reason for Referral Outpatient (Routine) - Authorized Specialty Diagnoses / Procedures Referred By Contact Refer red To Contact Radiation Oncology Aidee Sanchez [facility] Jey Spencer [address] [place] [address] Referral ID Status Reason Start Date Expiration Date Visits V isits Requested Authorized [id number] Authorized 11/03/2021 11/03/2022 10 10 Radiation Therapy (Routine) - Authorized Specialty Diagnoses / Procedures Referred By Contact Refer red To Contact Diagnoses 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 [facility] Procedures Management Visit [address] [place], [place] [address] Referral ID Status Reason Start Date Expiration Date Visits V isits Requested Authorized [id number] Authorized 11/03/2021 11/03/2022 10 10 Radiation Therapy (Routine) - Authorized Specialty Diagnoses / Procedures Referred By Contact Refer red To Contact Diagnoses 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 [facility] Procedures Prior Auth Rad Tx [place] [facility] [address] [place] [address] Referral ID Status Reason Start Date Expiration Date Visits V isits Requested Authorized [id number] Authorized 11/10/2021 11/03/2022 6 6 Radiation Therapy (Routine) - Closed Specialty Diagnoses / Procedures Referred By Contact Refer red To Contact Diagnoses 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 [facility] Region Procedures Initial Rad Onc Treatment Planning CT Simulation [address] [place] [address] Referral ID Status Reason Start Date Expiration Date Visits Requ ested Visits Authorized [id number] Closed 11/03/2021 11/03/2022 1 1 Encounter Details Date Type Department Care Team Description 11/03/2021 Orders Only Department of Aidee Sanchez Malignant N eoplasm Of Radiation Oncology in [place] Right Main Bronchus Spencer, [facility] a [address] [place] (HCC) (Primary Dx) [address] [place] [phone] Social History Tobacco Use Types Packs/Day Years [...] do you attend baptist or Never 2021 scientology services? Do you [...] place to sleep or slept in a penitentiary (including now)? Education Answer Date Recorded What is the highest level of school Associate degree: julieta arreaga, 08/23/2021 you have completed or the highest technical, or vocational p rogram degree you have received? Sex Assigned at Date Recorded Male 08/23/2021 10:27 AM CDT documented as of this encounter Plan of Treatment Scheduled Orders Name Type Priority Associated Order Schedule Diagnoses Prior Auth Rad Tx Radiation Oncology Routine Malignant Neoplas m Ordered: 11/03/2021 Of Right Main Bronchus (HCC) Management Visit Radiation Oncology Routine Malignant Neoplasm 10 Occurrences Of Right Main starting 11/03 Bronchus (HCC) until 023 Scheduled Referrals Name Type Priority Associated Order Schedule Diagnoses Radiation Oncology Outpatient Referral Routine 10 Occurrences nurse visit starting 2021 (clinic) until 5 documented as of this encounter Results Initial Rad Onc Treatment Planning CT Simulation (11/05/2021 11:03 AM CDT) Specimen (Source) Anatomical Location Collection Method / Collectio n Time Received Time / Laterality Volume Narrative MAKENZIE KEN - 11/05/2021 11:03 AM CDT Hyaley Bergman, RTT ? 11/05/2021 11:03 AM Initial Rad Onc Treatment Planning CT Si mulation Date/Time: 11/05/2021 11:03 AM Performed by: Los Wen M.D. Authorized by: Aidee Sanchez M.D. Aidee Sanchez M.D. RADIATION ONCOLOGY ORDERABLE S Performing Organization Address City/State/ZIP Code Phon e Number RICHMOND SUELLEN RICHMOND SUELLEN na documented in this encounter Visit Diagnoses Diagnosis Malignant Neoplasm Of Right Main Bronchu s (HCC) - Primary Malignant Neoplasm Of Right Main Bronchu s (HCC) documented in this encounter
--- OUTSIDE RECORDS SUMMARY | 2022-02-01 13:15 | XMS_ITS | Encounter Summary ---
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) Radha Moore [place] [facility] [address] [place] [phone] Referral ID Status Reason Start Date Expiration Date Visits Requ ested Visits Authorized [id number] Closed 09/01/2021 09/01/2022 1 1 Scheduling Instructions Patient would like to be called once norbert ointments scheduled Outpatient (Routine) - Closed Specialty Diagnoses / Procedures Referred By Contact Refer red To Contact Medical Oncology / Diagnoses 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 [facility] [address] [place] [phone] Referral ID Status Reason Start Date Expiration Date Visits Requ ested Visits Authorized [id number] Closed 08/27/2021 08/27/2022 1 1 Encounter Details Date Type Department Care Team Description 09/01/2021 Virtual Visit Division of Pulmonary Radha Moore Malignant Neoplasm Of Medicine in B, MEdison. Bronchus And Lung [place], [place] [address] [facility] Multiple Site Right 200 [place], [place] (HCC) (Primary Dx) [place] [phone] Social History Tobacco Use Types Packs/Day Years [...] do you attend rastafari or Never 2021 anabaptist services? Do you belong to any clubs or No 08/23/2021 organizations such as rastafari groups, unions, fraternal or athletic groups, or [...] CDT documented as of this encounter Progress Radha Graham M.D. - 09/01/2021 4:30 PM CDT Mr. Norris is being called to discuss the results of the bronchoscopy. He was originally seen by me on 08/27/21 for lung nodule consultation. 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 The next step will be to proceed with Oncology and Radiation oncology consult. I will add on PD-1 and molecular markers. documented in this encounter Miscellaneous Notes Addendum Note - Radha Moore M.D. - 09/01/2021 4:30 PM CDT Addended by: RADHA MOORE on: 09/01/2021 04:28 PM Modules accepted: Orders documented in this encounter Plan of Treatment Scheduled Referrals Name Type Priority Associated Diagnoses Order S chedule Oncology - Medical, Outpatient Referral Routine Malignant Neop lasm Expected: lung consult Of Bronchus And Lung 022 (clinic) Multiple Site Right (Approxi mate), (HCC) Expires: 12/02/2022 Radiation Oncology Outpatient Referral Routine Malignant Neopl asm Expected: - Lung consult Of Bronchus And Lung 09/01 (clinic) Multiple Site Right (Approxi mate), (HCC) Expires: 12/02/2022 documented as of this encounter Results Solid Tumor Targeted Cancer Gene Panel by Next Generation Sequencing (08/28/2021 12:14 PM CDT) Component Value Ref Test Analysis Performed Pathologis t Range Method Time At Signature Result Provided diagnosis: Lung adenocarcinoma 09/16/2021 DTL 12:47 PM The following alteration was identified: CDT Gene: KRAS DNA change: c.35G>A Amino Acid change: p.G12D ([id number]) Classification: MUTATION No additional reportable alterations were identified within the analyzed regions of the tested genes listed in the method description. Released By Justo Sierra, 09/16/2021 MARIO Spencer 12:47 PM CDT Additional CLINICAL TRIALS 09/16/2021 DTL Information Possible clinical trials of benefit for this patient c an be 12:47 PM found at the following sites: CDT 1) ClinicalTrials.gov: www.clinicaltrials.gov/ct2/search/advanced 2) [facility]: www.[facility]/research/clinical-trials/ 3) National Cancer [place]: www.cancer.gov/clinicaltrials/search REFERENCE TRANSCRIPT(S) Mutation nomenclature is based on the following GenBank accession number(s) (build GRCh37 (hg19)): KRAS [id number]. Specimen Cells 09/16/2021 DTL 12:47 PM CDT Tissue ID [id number] 09/16/2021 DTL (smears 3 and 6) 12:47 [...] 1. cancer.leonardo.ac.uk/cancergenome/projects/cosmic/ 2. Caitlin Rev Clin Oncol. 2011 Dec 15;8(11):661-8 (PMID [id number]) 3. Int J Cancer 2011;131(5):L389-791 (PMID 13731867) 4. Mod Pathol. 2007; Suppl 2:S16-22 (PMID 39293697) 5. J Clin Oncol. 2005 Dec 24;23(25):5900-9 (PMID [id number]) Comment: ----ADDITIONAL INFORMATION---- Microscopic examination was performed [...] and additional information about this test, see www.[employer]. [employer] (Test ID CAPN). CLINICAL CORRELATIONS Test results [...] and its performa nce characteristics determined by [facility] in a manner consistent with CLIA requirements. 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
--- OUTSIDE RECORDS SUMMARY | 2022-02-01 13:15 | XMS_ITS | Encounter Summary ---
:1960 Author Organization [facility] Address [address] [place] [address] Care Team Providers Name Role Phone Unavailable Primary Care Provider Unavailable Encounter Details Date Type Department Care Team Description 08/31/2021 Orders Only Division of Pulmonary Radha Carrizales Malignant Neoplasm Of Medicine in B, M.D. Bronchus And Lung [place], [place] [address] [facility] Multiple Site Right [address] [place], [place] (HCC) (Primary Dx) [place] [phone] Social History Tobacco Use Types Packs/Day Years [...] or relatives? How often do you attend yazidism or Never 2021 judaism services? Do you belong to any clubs or No 08/23/2021 organizations such as yazidism groups, unions, fraternal or athletic groups, or [...] place to sleep or slept in a jail (including now)? Education Answer Date Recorded What is the highest level of school Associate degree: julieta arreaga, 08/23/2021 you have completed or the highest technical, or vocational [facility] degree you have received? Sex Assigned at Date Recorded Male 08/23/2021 10:27 AM CDT documented as of this encounter Miscellaneous Notes Addendum Note - Radha Carrizales M.D. 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
--- OUTSIDE RECORDS SUMMARY | 2022-02-01 13:15 | XMS_ITS | Encounter Summary ---
:1960 Author Organization [facility] Address [address] [place] [address] Care Team Providers Name Role Phone Unavailable Primary Care Provider Unavailable Reason for Visit Episode Based Medications (Routine) - Authorized Specialty Diagnoses / Procedures Referred By Contact Refer red To Contact Diagnoses Malignant Neoplasm Of Lung Middle Lobe Or Bronchus (HCC) Deepthi Mcqueen, Rst Onc [facility] Procedures IL ONDANSETRON HCL INJECTION IL PEMBROLIZUMAB INJ IL CARBOPLATIN INJECTION IL PEMETREXED INJECTION LAN C.N.P., M.S.N. [address] [facility] [address] [place] [phone] Referral ID Status Reason Start Date Expiration Date Visits V isits Requested Authorized [id number] Authorized 09/10/2021 09/10/2022 5 5 Encounter Details Date Type Department Care Team Description 09/15/2021 Infusion Department of Oncology Deepthi Mcqueen , Malignant Neoplasm Of in [facility] michael LAN, C.N.P., Right Main Bronchus [address] [facility] M.S.N. (HCC) (Primary Dx) [place], [place] [address] [facility] [address] [place], [place] [phone] (Wo rk) Social History Tobacco Use Types [...] or relatives? How often do you attend anabaptism or Never 2021 congregation services? Do you belong to any clubs or No 08/23/2021 organizations such as anabaptism groups, unions, fraternal or athletic groups, or [...] (HCC) - Primary documented in this encounter Administered Medications Inactive Administered Medications - up to 3 most recent administrations Medication Order MAR Action Action Date Dose Rate Site CARBOplatin 670 mg in NaCl New Bag 09/15/2021 11:33 AM CDT 670 mg 684 mL/hr 0.9% 342 mL IVPB (PARAPLATIN) 670 mg (rounded from 665 mg, Target AUC = 5), intravenous, at 684 mL/hr, Administer over 30 Minutes, Once, On Tue09/15/21 at 1115, For 1 dose cyanocobalamin 1,000 mcg/mL Given 09/15/2021 9:50 AM CDT 1,000 m cg Left Deltoid injection 1,000 mcg (VITAMIN B12) 1,000 mcg, intramuscular, Once, On Tue09/15/21 at 0945, For 1 dose, Begin 1 week before cycle 1 PEMEtrexed (Alimta) is started, then every 9 weeks. fosaprepitant in NaCl 0.9% IVPB New Bag 09/15/2021 10:06 AM CD T 150 mg 500 mL/hr 150 mg (EMEND) 150 mg, intravenous, at 500 mL/hr, Administer over 30 Minutes, Once, On Tue09/15/21 at 1000, For 1 dose, Incompatible with solutions containing divalent cations (calcium, magnesium) including lactated Ringer's solution. ondansetron in NaCl 0.9% IVPB 16 mg New Bag 09/15/2021 9:46 AM CDT 16 mg 232 mL/hr (ZOFRAN) 16 mg, intravenous, at 232 mL/hr, Administer over 15 Minutes, Once, On Tue09/15/21 at 1000, For 1 dose PEMEtrexed disodium 1,000 mg in New Bag 09/15/2021 10:43 AM CD T 1,000 mg 900 mL/hr NaCl 0.9% 150 mL IVPB (ALIMTA) 1,000 mg (rounded from 960 mg = 500 mg/m2 ? 1.92 m2 Treatment Plan BSA from Measured weight), intravenous, at 900 mL/hr, Administer over 10 Minutes, Once, On Tue09/15/21 at 1045, For 1 dose, Give after pembrolizumab and approximately 30 minutes prior to [place] tribe agent sodium chloride 0.9 % injection 3 mL Given 09/15/2021 10:57 AM CDT 20 mL 3 mL, intra-catheter, As needed, line care, Starting on Tue09/15/21 at 0934, Prior to and following infusion and between multiple consecutive infusions. documented in this encounter
--- OUTSIDE RECORDS SUMMARY | 2022-02-01 13:15 | XMS_ITS | Encounter Summary ---
:1960 Author Organization [facility] Address [address] [place] [address] Care Team Providers Name Role Phone Unavailable Primary Care Provider Unavailable Encounter Details Date Type Department Care Team Description 09/10/2021 Lab Department of Laboratory Deepthi Mcqueen, Malignant Neoplasm Of Medicine and Pathology, Deanna MONTENEGRO NKatharine, M.S.N. Right Main Bronchus [facility] in [address] [place] [address] ([facility]) [place], [place] [address] [place] [phone] [place] [address] [phone] Social History Tobacco Use Types Packs/Day Years [...] or relatives? How often do you attend yarsanism or Never 2021 church services? Do you belong to any clubs or No 08/23/2021 organizations such as yarsanism groups, unions, fraternal or athletic groups, or [...] Name Priority Date/Time Associated Diagnosis Comme nts [id number] CDX Routine 09/10/2021 3:44 PM Malignant Neoplasm Of Results for this CDT Right Main Bronchus procedur e are in (HCC) the results section. documented in this encounter Results [id number] CDx - Sent Out Lab (09/10/2021 3:44 PM CDT) [facility] Method Time Signature [id number] SEE COMMENT 09/22/2021 GUAR CDx 10:40 AM CDT Comment: For final report, select Lab-Send Out L ab Results hyperlink below. Specimen Anatomical Collection Method Collection Time Receive d Time (Source) Location / / Volume Laterality Varies (Blood, 09/10/2021 3:44 PM 022 8:13 Venous) CDT AM CDT Narrative [facility] - 09/22/2021 10:40 AM CD T Specimen Information: Specimen ID: [id number] Specimen Type: Varies Specimen Collection Start Date: 09/11/19 ??3:44 PM Specimen Received Date: 09/11/2021 ??8:1 3 AM Specimen ID: [id number] Specimen Type: Varies Specimen Collection Start Date: 09/11/19 ??3:44 PM Specimen Received Date: 09/11/2021 ??8:1 3 AM Deepthi Mcqueen APRN, C.N.P., M.S.N. LAB [facility] Performing Organization Address City/State/ZIP Code Phon e Number [facility] [address] [place] [address] [place], [place] [address] [phone] documented in this encounter Visit Diagnoses Diagnosis Malignant Neoplasm Of Right Main Bronchu s (HCC) documented in this encounter
--- OUTSIDE RECORDS SUMMARY | 2022-02-01 13:15 | XMS_ITS | Encounter Summary ---
:1960 Author Organization [facility] Address [address] [place] [address] Care Team Providers Name Role Phone Unavailable Primary Care Provider Unavailable Reason for Visit Reason Comments Triage Internal referral from Sonido angela Encounter Details Date Type Department Care Team Description 09/01/2021 Clinical Communication Department of Javon Gastelum (Internal Oncology in Hayley Hickey APRN, referral from Bessy Bruner, M.S. Pulmonary) [address] [place] [phone] Social History Tobacco Use Types Packs/Day Years [...] or relatives? How often do you attend spiritism or Never 2021 mormonism services? Do you belong to any clubs or No 08/23/2021 organizations such as spiritism groups, unions, fraternal or athletic groups, or [...] this encounter Miscellaneous Notes Telephone Encounter - Timothy Muhammad P.A.-C. - 09/02/2021 12:15 PM CDT OK to schedule next opening documented in this encounter Plan of Treatment Not on filedocumented as of this encounter Visit Diagnoses Not on filedocumented in this encounter
--- OUTSIDE RECORDS SUMMARY | 2022-02-01 13:15 | XMS_ITS | Encounter Summary ---
:1960 Author Organization [facility] Address [address] [place] [address] Care Team Providers Name Role Phone Unavailable Primary Care Provider Unavailable Encounter Details Date Type Department Care Team Description 09/14/2021 Admin Visit Department of Oncology in [place], [place] [address] [place] [phone] Social History Tobacco Use Types Packs/Day Years [...] or relatives? How often do you attend rastafarian or Never 2021 mosque services? Do you belong to any clubs or No 08/23/2021 organizations such as rastafarian groups, unions, fraternal or athletic groups, or [...] to sleep or slept in a senior care (including now)? Education Answer Date Recorded What [...]
--- OUTSIDE RECORDS SUMMARY | 2022-02-01 13:15 | XMS_ITS | Encounter Summary ---
:1960 Author Organization [facility] Address [address] [place] [address] Care Team Providers Name Role Phone Unavailable Primary Care Provider Unavailable Reason for Referral Outpatient (Routine) - Closed Specialty Diagnoses / Procedures Referred By Contact Refer red To Contact Diagnoses Malignant Neoplasm Of Right Main Bronchus (HCC) Edema Localized Deepthi [facility]queen [facility] Procedures US Lower Extremity Veins Left C.N.P., M.S.N. [address] [place] [phone] Referral ID Status Reason Start Date Expiration Date Visits Requ ested Visits Authorized [id number] Closed 09/10/2021 09/10/2022 1 1 Reason for Visit Outpatient (Routine) - Closed Specialty Diagnoses / Procedures Referred By Contact Refer red To Contact Diagnoses Malignant Neoplasm Of Right Main Bronchus (HCC) Edema Localized Deepthi Mcqueen APRN, [facility] Procedures US Lower Extremity Veins Left C.N.P., M.S.N. [address] [place] [phone] Referral ID Status Reason Start Date Expiration Date Visits Requ ested Visits Authorized [id number] Closed 09/10/2021 09/10/2022 1 1 Encounter Details Date Type Department Care Team Description 09/10/2021 Hospital Encounter Department of Deepthi Mcqueen Neoplasm Of Right Main Bronchus (HCC); Radiology, Gonda N, FACTORY SUPERVISOR, C.N.P., Edema L ocalized ; Building, in M.S.N. Edema Localized [place], [address] [place], [place] [address] [facility] [phone] [place], [place] [phone] (Work) [phone] Social History Tobacco Use Types Packs/Day Years [...] do you attend buddhist or Never 2021 voodoo services? Do you belong to any clubs [...] Procedure Name Priority Date/Time Associated Comments Diagnosis US LOWER RAD - Routine 09/10/2021 3:13 Malignant Results for this EXTREMITY VEINS (most inpatients PM CDT Neoplasm Of Right pro cedure are in LEFT and all Main Bronchus the results outpatients) (HCC) section. Edema Localized documented in this encounter Results US Lower Extremity Veins Left (09/10/2021 3:13 PM CDT) Anatomical Region Laterality Modality Lower Extremity, Ultrasound RST LOS, Ultrasound ARZ LOS, Lef t Ultrasound Ultrasound FLA LOS Specimen (Source) Anatomical Collection Method Collection Time Re ceived Time Location / / Volume Laterality 09/10/2021 3:26 PM CDT Impressions 09/10/2021 4:05 PM CDT Negative for acute DVT. Narrative 09/10/2021 4:05 PM CDT EXAM: US LOWER EXTREMITY VEINS LEFT Exam performed with color and spectral D oppler analysis. COMPARISON: None. FINDINGS: LEFT: Common Femoral Vein: Negative. Profunda Femoral Vein: Negative. Femoral Vein: Negative. Popliteal Vein: Negative. Gastrocnemius Veins: Negative where seen . Soleal Veins: Negative where seen. Posterior Tibial Veins: Negative where s een. Peroneal Veins: Negative where seen. Great Saphenous Vein: Negative where see n. Small Saphenous Vein: Not evaluated. Popliteal Fossa: Negative. Other: n/a Information on venous thrombosis and man agement can be found on the [employer] site. Link [email or web address].[email or web address]/topic/clinical-answers/[email or web address]/cpm-[email or web address] 85308 Procedure Note Lele Harrison M.B., B.Ch. - 2021 EXAM: US LOWER EXTREMITY VEINS LEFT Exam performed with color and spectral D oppler analysis. COMPARISON: None. FINDINGS: LEFT: Common Femoral Vein: Negative. Profunda Femoral Vein: Negative. Femoral Vein: Negative. Popliteal Vein: Negative. Gastrocnemius Veins: Negative where seen . Soleal Veins: Negative where seen. Posterior Tibial Veins: Negative where s een. Peroneal Veins: Negative where seen. Great Saphenous Vein: Negative where see n. Small Saphenous Vein: Not evaluated. Popliteal Fossa: Negative. Other: n/a Information on venous thrombosis and man agement can be found on the [employer] site. Link [email or web address].[email or web address]/topic/clinical-answers/[email or web address]/cpm-[email or web address] [address] IMPRESSION: Negative for acute DVT. Deepthi Mcqueen APRN, C.N.P., M.S.N. IMG US PROCEDUR ES documented in this encounter Visit Diagnoses Diagnosis Malignant Neoplasm Of Right Main Bronchu s (HCC) Edema Localized documented in this encounter
--- OUTSIDE RECORDS SUMMARY | 2022-02-01 13:15 | XMS_ITS | Encounter Summary ---
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 [facility] Procedures Bronchoscopy (Adult): [address] [place] [phone] Referral ID Status Reason Start Date Expiration Date Visits Requ ested Visits Authorized [id number] Closed 08/27/2021 08/27/2022 1 1 Encounter Details Date Type Department Care Team Description 08/28/2021 Hospital Encounter Division of Yoandy Birmingham Malignan t Neoplasm Of Pulmonary Medicine T[facility] Bronchus And Lung in [place], [address] [facility] Multiple Site Right [place], [place] (HCC) 200 [facility] [address] [place], [place] [phone] (Work) [phone] Social History Tobacco Use Types Packs/Day Years [...] do you attend taoist or Never 2021 adventist services? Do you [...] Sign Reading Time Taken Comments Blood Pressure 100/73 08/28/2021 11:05 AM CDT standing Pulse 65 08/28/2021 11:05 AM CDT standing Temperature 36.8 ??C (98.2 ??F) 08/28/2021 10:15 AM CDT Respiratory Rate 19 08/28/2021 11:05 AM CDT standin g Oxygen Saturation 95% 08/28/2021 11:05 AM CDT standi ng Inhaled Oxygen Concentration - - Weight - - Height - - Body Mass Index - - documented in this encounter Medications at Time [...] SEXUAL ACTIVITY documented as of this encounter H&P Notes Patricia Mccollum Admin Closure - 08/28/2021 10:00 AM CDT Administrative Closure: This record is being filed as incomplete for a missing Interval H&P. Health Information Management Services documented in this encounter OR Notes Op Note - Yoandy Birmingham M.D. - 08/28/2021 9:39 AM CDT FULL OP NOTE Procedure(s) (LRB): 1. Flexible bronchoscopy 2. Bronchoscopic intubation 3. EBUS with transbronchial needle aspiration station 4 L and 7 4. Endobronchial biopsy from right middle lobe bronchus Surgeon(s) and Role: MD Sarah Alamo MD fellow Anesthesia Type Moderate sedation Pre-operative Diagnosis Abnormal CT scan concerning for malignancy Post-operative Diagnosis Same Findings 1. Endobronchial invasion at the right middle lobe 2. Mediastinal lymphadenopathy Complications None Operative Note Narrative After standard procedural pause and adequate topical and intravenous anesthesia the fiberoptic bronchoscope was introduced orally and the posterior oropharynx, larynx, and vocal cords were inspected which were normal. The bronchoscope was then advanced beyond the vocal cords and into the mid trachea where an 8.0 cuffed wire spiral endotracheal tube was placed fiberoptically. An inspection of the visible right and left tracheobronchial tree was then completed. The right middle lobe had evidence of invasion at RC2. The adult bronchoscope was then exchanged for the endobronchial ultrasound scope and a survey of the mediastinal and hilar lymph nodes performed. Identified werelymph nodes corresponding to station 4 L measuring 7 millimeters, 7 measuring 30 millimeters. At this time EBUS-directed transbronchial needle aspirates were obtained for lymph node stations 4L and 7 in that order. We obtained diagnostic specimen from station seven. We obtained three passes for slidesand one additional for cell block. We were unable to take more passes as he became intolerant of sedation. We did take one additional biopsy from the right middle lobe orifice that was small and this was sent for permanent. He will require deep sedation or general anesthesia for future procedures. The procedure was tolerated well and the patient was a extubated and in stable condition on transferto the recovery area. ?? Specimens ID Type Source Tests Collected by Time A : 4L Aspirate Lymph Node CYTOLOGY FINE NEEDLE ASPIRATION (INCLUDES CORE BIOPSIES Yoandy Birmingham M.D. 08/28/2021 1002 B : 7 Aspirate Lymph Node CYTOLOGY FINE NEEDLE ASPIRATION (INCLUDES CORE BIOPSIES Yoandy Birmingham M.D.08/28/2021 1003 C : Tissue Lung, Right Middle Lobe SURGICAL PATHOLOGY Yoandy Birmingham M.D. 08/28/2021 1005 Drains None Estimated Blood Loss None Implants None Yoandy Birmingham M.D. documented in this encounter Plan of Treatment Scheduled Orders Name Type Priority Associated Order Schedule Diagnoses Bronchoscopy (Adult): Procedures Routine Malignant Neoplasm Once for 1 Of Bronchus And Occurrences Lung Multiple Site starting 08/28/2021 Right (HCC) until 2 Glucose, POCT Point of Care Routine Routine lab Testing-Docked collection (n ext Device collection) for 1 Occurrences starting 2021 until 2 documented as of this encounter Procedures Procedure Name Priority Date/Time Associated Comments Diagnosis CYTOLOGY FINE NEEDLE Routine 08/28/2021 10:02 AM Malignant Dell plasm Results for this ASPIRATION (INCLUDES CDT Of Bronchus And proc edure are in CORE BIOPSIES Lung Multiple Site the resu lts Right (HCC) section. documented in this encounter Results (ABNORMAL) Cytology Fine Needle Aspiration (including core biopsies) (08/28/2021 10:02 AM CDT) Component Value Ref Test Analysis Performed Pathologis t Range Method Time At Signature (A) 08/31/2021 DTL 2:28 PM CDT Report Lele Hightower M.D., Ph.D. 08/31/2021 DTL electronically 2:28 PM signed by CDT I verify that I have examined all relevant slides/materials for the specimen(s) and rendered or confirmed the diagnosis. (A) Gross A: Received 3 spray-fixed smears, 3 Diff-Quik stained 08/31/2021 DTL Description smears, and 3cc of blood-tinged fluid. 2:28 PM CDT Specimen evaluated for adequacy on site. B: Received 3 spray-fixed smears, 3 Diff-Quik stained smears, and 4cc of blood-tinged fluid. Specimen evaluated for adequacy on site. C: Received tissue. Additionally, received in formalin labeled with the patient's name, medical record number and lung, right middle lobe bronchus is a 0.1 cm in average diameter by 0.3 cm in length pale bergman soft tissue fragment. The specimen is submitted en toto in cassette C1. ??Grossed by KARY. (A) Source A. Lymph node, Station 4 left, EBUS fine needle aspiration 08/31/2021 DTL 2:28 PM B. Lymph node, Station 7, EBUS fine needle aspiration CDT C. Lung, Right middle lobe bronchus, biopsy (A) Addendum Right middle lobe bronchus, Station 7, Station 4 left , 09/09/2021 DTL specimen for PD-L1 immunohistochemistry studies (clone 12:51 PM 22C3, CDT [employer] [place], [place], [place]; using a proprietary detection system) (C1): There are too few tumor cells to evaluate for PD-L1 expression. Interpretation: Studies suggest that positive PD-L1 immunohistochemistry in tumor cells and/or tumor-associated immune cells may predict tumor response to therapy with immune checkpoint inhibitors. ??This result should not be used as the sole factor in determining treatment, as other factors (for example, tumor mutation burden, and microsatellite instability) have been also studied as predictive markers. Fixation: This test has been validated for non-decalcified paraffin embedded tissue specimens fixed in 10% neutral buffered formalin. This assay has not been validated on tissues subjected to the decalcification process and/or use of alternative fixatives for bone/bone marrow specimens or cell blocks. Signed by Preet Titus M.D. 09/03/2021 10:57 AM This test was developed using an analyte specific reagent. Its performance characteristics were determined by [facility] in a manner consistent with CLIA requirements. This test has not been cleared or approved by the U.S. Food and Drug Administration. Genetic testing for Solid Tumor Targeted Cancer Panel (CAPN) will be performed and resulted in the patient's medical record. Signed by Jaime Claire M.D. 09/09/2021 12:51 PM (A) Comment: REVISED RESULTS Interpretation A. Lymph node, Station 4 left, EBUS fine needle aspi ration 09/09/2021 12:51 PM CDT DTL (smears/cell block): Negative for malignancy. Lymphocytes consistent with sampled lymph node. B. Lymph node, Station 7, EBUS fine needle aspiration (smears/cell block): Positive for malignancy. ??Metastatic adenocarcinoma. C. Lung, Right middle lobe bronchus, biopsy (tissue): Positive for malignancy. ??Adenocarcinoma. Immunohistochemistry performed for both Parts B and C demonstrate that the cells of interest are focally positive for TTF1 and negative for p40, supporting the diagnosis of adenocarcinoma (consistent with a lung primary). (A) Specimen (Source) Anatomical Collection Method Collection Time Re ceived Time Location / / Volume Laterality Aspirate (Lymph 08/28/2021 10:02 Node) AM CDT Aspirate (Lymph 08/28/2021 10:03 Node) AM CDT Narrative This result has an attachment that is no t available. Radha Moore M.D. 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) documented in this encounter Administered Medications Inactive Administered Medications - up to 3 most recent administrations Medication Order MAR Action Action Date Dose Rate Site benzocaine 20 % mouth spray Given 08/28/2021 9:37 AM CDT 4 spray s (HURRICAINE/TOPEX) mouth/throat, Code/trauma/sedation medication, Starting on Tue08/28/21 at 0937 fentaNYL injection (SUBLIMAZE) Given 08/28/2021 9:36 AM CDT 50 mcg intravenous, Code/trauma/sedation medication, Starting on Tue08/28/21 at 0936 fentaNYL injection (SUBLIMAZE) Given 08/28/2021 9:40 AM CDT 50 mcg intravenous, Code/trauma/sedation medication, Starting on Tue08/28/21 at 0940 fentaNYL injection (SUBLIMAZE) Given 08/28/2021 9:43 AM CDT 25 mcg intravenous, Code/trauma/sedation medication, Starting on Tue08/28/21 at 0943 fentaNYL injection (SUBLIMAZE) Given 08/28/2021 9:44 AM CDT 25 mcg intravenous, Code/trauma/sedation medication, Starting on Tue08/28/21 at 0944 fentaNYL injection (SUBLIMAZE) Given 08/28/2021 9:56 AM CDT 50 mcg intravenous, Code/trauma/sedation medication, Starting on Tue08/28/21 at 0956 lactated ringers New Bag 08/28/2021 9:01 AM CDT 75 mL/hr 75 mL/hr 75 mL/hr, intravenous, Continuous, Starting on Tue08/28/21 at 0845, Pre-Op lidocaine 10 mg/mL (1 %) injection Given 08/28/2021 10:08 AM CDT 23 mL (XYLOCAINE) topical, Code/trauma/sedation medication, Starting on Tue08/28/21 at 1008 midazolam (PF) injection (VERSED) Given 08/28/2021 9:36 AM CDT 2 mg Code/trauma/sedation medication, Starting on Tue08/28/21 at 0936 midazolam (PF) injection (VERSED) Given 08/28/2021 9:40 AM CDT 2 mg Code/trauma/sedation medication, Starting on Tue08/28/21 at 0940 midazolam (PF) injection (VERSED) Given 08/28/2021 9:43 AM CDT 1 mg Code/trauma/sedation medication, Starting on Tue08/28/21 at 0943 midazolam (PF) injection (VERSED) Given 08/28/2021 9:44 AM CDT 1 mg Code/trauma/sedation medication, Starting on Tue08/28/21 at 0944 midazolam (PF) injection (VERSED) Given 08/28/2021 9:56 AM CDT 2 mg Code/trauma/sedation medication, Starting on Tue08/28/21 at 0956 documented in this encounter
--- OUTSIDE RECORDS SUMMARY | 2022-02-01 13:15 | XMS_ITS | Encounter Summary ---
:[address] [facility] Address [address] [place] [address] Care Team Providers Name Role Phone Unavailable Primary Care Provider Unavailable Reason for Referral Specialty Diagnoses / Procedures Referred By Contact Refer red To Contact Gabriele Juarez M.D., [facility] Ph.D. [address] [place] [address] [phone] Referral ID Status Reason Start Date Expiration Date Visits Requ ested Visits Authorized Reason for Visit Reason Comments NT needed 09/15 8am Encounter Details Date Type Department Care Team Description 09/10/2021 Clinical Communication Department of HUGO Juarez 09/15 8am Oncology in GabrieleFranc cummings M.D., Ph.D. [address] [phone] Social History Tobacco Use Types Packs/Day Years [...] or relatives? How often do you attend religion or Never 2021 mormonism services? Do you belong to any clubs or No 08/23/2021 organizations such as religion groups, unions, [employer] or athletic groups, or school groups? How [...] place to sleep or slept in a assisted (including now)? Education Answer Date Recorded What is the highest level of school Associate degree: julieta arreaga, 08/23/2021 you have completed or the highest technical, or vocational p christ degree you have received? Sex Assigned at Date Recorded Male 08/23/2021 10:27 AM CDT documented as of this encounter Plan of Treatment Scheduled Referrals Name Type Priority Associated Order Schedule Diagnoses Patient Education - Outpatient Referral Routine Malignant Neop lasm Expected: Introduction to Of Bronchus And 2, cancer care (clinic) Lung Multiple Site E xpires: Left (HCC) 12/11/2022 documented as of this encounter Visit Diagnoses Diagnosis Malignant Neoplasm Of Bronchus And Lung Multiple Site Left (HCC) - Primary documented in this encounter
--- OUTSIDE RECORDS SUMMARY | 2022-02-01 13:15 | XMS_ITS | Encounter Summary ---
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 [facility] Procedures MR Brain without and with IV Contrast MR Brain with IV Contrast [place] MRI BRAIN W CNTRST [address] [place], [place] [address] Referral ID Status Reason Start Date Expiration Date Visits V isits Requested Authorized [id number] Modified 08/27/2021 08/27/2022 1 1 Order Outpatient (Routine) - Closed Specialty Diagnoses / Procedures Referred By Contact Refer red To Contact Radha Moore M.D. 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 [facility] Procedures ECG 12 Lead 200 [place] [address] Referral ID Status Reason Start Date Expiration Date Visits Requ ested Visits Authorized [id number] Closed 08/27/2021 08/27/2022 1 1 Reason for Visit Appointment Request (Routine) - Closed Specialty Diagnoses / Procedures Referred By Contact Refer red To Contact Pulmonary Medicine Diagnoses Malignant Neoplasm Of Unspecified Part Of Lung Laterality Unknown (HCC) Tin Hernandez M.D., M.P.H. [address] [place] [address] Referral ID Status Reason Start Date Expiration Date Visits Requ ested Visits Authorized [id number] Closed 08/11/2021 08/11/2022 1 1 Encounter Details Date Type Department Care Team Description 08/27/2021 Comprehensive Visit Division of Catia Moore Neoplasm Of Bronchus And Lung Multiple Site Right (HCC) (Primary Dx); Pulmonary Radha Ladd, Malignant Neopl asm Of Bronchus And Lung Multiple Site Left (HCC); Medicine in [place] Lymphadenopathy [place]; [place], [facility] Lymphadenopathy Mediastinum; [place], [place] Smoking Tobacco Use Personal History [facility] [phone] [place], [place] [phone] (Work) [phone] Social History Tobacco Use Types Packs/Day Years [...] do you attend mosque or Never 2021 rastafarian services? Do you [...] Sign Reading Time Taken Comments Blood Pressure 107/62 08/27/2021 9:57 AM CDT Pulse 75 08/27/2021 9:57 AM CDT Temperature - - Respiratory Rate - - Oxygen Saturation 97% 08/27/2021 9:57 AM CDT Inhaled Oxygen Concentration - - Weight 79.1 kg (174 lb 6.1 oz) 08/27/2021 9:57 AM CDT Height 164.9 cm (5' 4.92) 08/27/2021 9:57 AM CDT Body Mass Index 29.09 08/27/2021 9:57 AM CDT documented in this encounter Consult Notes Radha Moore M.D. - 08/27/2021 10:30 AM CDT SUBJECTIVE REASON FOR CONSULT Pulmonary Lung Nodule Referred by:Tin Hernandez HISTORY OF PRESENT ILLNESS Hector Norris is a 61 y.o. male who presents for evaluation and treatment of lung nodule. He hasa past medical history of prostate cancer, prior tobacco use, rheumatoid arthritis, and chronic cough. As part of evaluation for cough, he underwent chest x-ray which showed right perihilar consolidation. He ended up having a chest CT on 07/31/2021. He has gotten a brain MRI as well as a PET-CT as part of the evaluation. Per review of records, ultrasound-guided biopsy of a right supraclavicular node was attempted but the nodule is deemed not amenable to percutaneous biopsy. He is presenting to [place] for further workup of his lung nodule, including biopsy. Upon seeing the patient today, he reports no significant shortness of breath but still has ongoing cough. He denies any fever at this time. He denies any weight loss. He is not on any blood thinning medications. He did not have any prior issues with anesthesia. He denies any neck issues or loose teeth. Review of Systems Pertinent items are noted in HPI; all other review of systems was negative. Past medical history Prostate cancer status post prostatectomy 2015 rheumatoid arthritis, well controlled and not requiring any therapy Social history He has smoked approximately 34 pack year smoking history, quit in July of 2021. 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 He has been exposed to significant dust including still,iron, wood dust as well as pneumonia. 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 Family history Father with lung cancer OBJECTIVE BP 107/62 (BP Location: Right arm, Patient Position: Sitting, Cuff Size: Regular) Pulse 75 Ht 164.9 cm Wt 79.1 kg SpO2 97% BMI 29.09 kg/m?? PHYSICAL EXAM General: Alert, no acute distress Heart: Regular rhythm Lungs: diminished breath sounds in left lung noted, no wheezing or rhonchi Extremities: or well perfused, no edema noted Skin: no rashes noted on exposed skin DIAGNOSTIC REVIEW I have reviewed the patient's current laboratory, imaging, and other diagnostic studies. CT chest 07/31/2021: Right hilar mass that measures 6.3 by 4.6 x 5.0 cm with dermal invasion leading to postobstructive atelectasis. MRI of the brain 08/26/2021: Several areas of enhancement, potentially vascular in etiology. 3-4 week interval follow-up recommended. PET-CT on 08/13/2021: FDG avid mass in the right central middle lobe invading the hilar region and extracting the right middle lobe bronchus, measuring approximately 4.6 x 3.5 cm with SUV max of 20.2. There also FDG avid 4R, 10 R , subcarinal, and paratracheal lymph nodes. A 6 mm right supraclavicular node was also suspicious for locally advanced malignancy. PFT's from today: Pulmonary Functions Testing Results: FEV1 Date Value Ref Range Status 08/27/2021 2.25 L Final FVC Date Value Ref Range Status 08/27/2021 3.50 L Final FEV1/FVC Date Value Ref Range Status 08/27/2021 64.11 % Final Borderline obstruction with FEV1 over FVC of 64% and normal FEV1. Diffusing capacity and total lung capacity are normal. ASSESSMENT / PLAN ASSESSMENT #1 Likely locally metastatic lung cancer, likely stage IIIb #2 Prior tobacco use, 34 pack year history Mr. Norris Is a 61-year-old prior tobacco user with a history of prostate cancer in the past status post prostatectomy who presents today for evaluation of lung nodule. Imaging findings as well as tobacco use history of concerning for primary lung malignancy. We will proceed with bronchoscopy with EBUSsampling for staging and pathologic diagnosis. PLAN - he will likely need a repeat MRI brain in 3-4 weeks - will proceed with bronchoscopy with EBUS sampling of the PET avid lymph nodes for pathologic diagnosis. Note to bronchoscopist: Please perform airway inspection and EBUS biopsy PET avid nodes for pathologic diagnosis and staging. Please get enough tissue for molecular markers. Radha Moore M.D. Associated attestation - Eugene Lawson M.B.B.S. - 08/27/2021 2:49 PM CDT I saw and evaluated the patient, participating in the hernandez portions of the service. I reviewed the resident/fellow???s note. I agree with the resident/fellow???s findings and plan. Mr. Norris is a 61-year-old male who recently quit smoking after a 34 pack-year history. He had a cough and was evaluated with a chest x-ray, which showed a large right hilar mass. He had a chest CT scan done on 07/31/2021, which shows a 6 x 5 cm right hilar mass along with significant hilar and mediastinal lymphadenopathy. FDG PET confirmed hypermetabolic activity in the primary tumor, as well as in the extensive hilar and mediastinal lymphadenopathy. There is suggestion of an FDG avid lymph node just anterior to the ascending aorta. There is also a hint of uptake at the contralateral hilum. There does not appear to be any distant metastatic disease. Brain MRI showed several small areas of enhancem ent, which were thought to be possibly vascular in etiology. Recommendation was for a short-term 3-4week follow-up MRI. ASSESSMENT AND PLAN #1 Right hilar 5 x 6 cm mass #2 Extensive right hilar, mediastinal and possibly left hilar lymphadenopathy #3 History of 34 pack-year smoking, quit 1 month ago We discussed the imaging findings with Mr. Norris and that they are highly concerning for lung cancer. Clinically, this appears to be a stage IIIB or IIIC disease. There does not appear to be any evidence of distant metastasis. However, we will need to repeat the brain MRI in 3-4 weeks as recommended by Radiology. We will also have the outside PET-CT reviewed by our radiologists for ruling out any distant disease. We have planned for obtaining a bronchoscopy with EBUS lymph node sampling to obtain sufficient tissue for making a diagnosis and for sending tissue for next generation sequencing and PD L1 testing. We will have a phone call with the patient after biopsy results are received and then likely make further referrals to Medical Oncology and Radiation Oncology. The patient expressed understanding of our recommendations and had no other questions at this time. The remainder of the plan is as outlined in Dr. Moore' note. documented in this encounter Plan of Treatment Scheduled Orders Name Type Priority Associated Diagnoses Order S chedule Bronchoscopy (Adult): Procedures Routine Malignant Neoplasm Of Expected: 08/27/2021 Bronchus And Lung (Approxima te), Multiple Site Right Expires: 11/27/2022 (HCC) Scheduled Referrals Name Type Priority Associated Diagnoses Order S chedule NonF2F phone Outpatient Referral Routine Expected : visit 09/01/2021, Expires: 2022 documented as of this encounter Results MR Brain without and with IV Contrast (09/10/2021 6:58 AM CDT) Anatomical Region Laterality Modality Head, Brain, Neuroradiology RST LOS, Neuroradiology ARZ N/A Magnetic Resonance [facility], Neuroradiology [facility] Specimen (Source) Anatomical Collection Method Collection Time [...] associated decreased signal on the SWI images (; 03/21), likely a vascular lesion such as a [...] associated decreased signal on the SWI images (; 03/21), likely a vascular lesion such as a [...] areas most likely represent vascular lesions/vessels. Radha Moore M.D. IMG MRI PROCEDURES ECG 12 Lead (08/27/2021 11:44 AM CDT) P athologist Signature Ventricular Rate 56 BPM MUSE ECG/Min [place] Interval 172 ms MUSE QRSD Interval 96 ms MUSE QT Interval 444 ms MUSE QTC Interval 428 ms MUSE P [place] 18 degrees MUSE R [place] 6 degrees MUSE T Wave [place] 12 degrees MUSE Specimen Anatomical Collection Method Collection Time Receive d Time (Source) Location / / Volume Laterality 08/27/2021 11:44 08/27/2021 AM CDT 11:55 AM CDT Impressions MUSE - 08/27/2021 11:55 AM CDT Sinus bradycardia Otherwise normal ECG No previous ECGs available Reviewed by DODIE France Narrative This result has an attachment that is no t available. Procedure Note Socrates Muhammad M.D. - 08/27/2021Forma tting of this note might be different from the original. IMPRESSION: Sinus bradycardia Otherwise normal ECG No previous ECGs available Reviewed by DODIE France Radha Moore M.D. ECG ORDERABLES Performing Organization Address City/State/ZIP Code Phon e Number MUSE MUSE NA Interpretation of Outside NM PET Scan (08/27/2021 [...] FDG avid distant metastatic disease. 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
--- OUTSIDE RECORDS SUMMARY | 2022-02-01 13:15 | XMS_ITS | Encounter Summary ---
:1960 Author Organization [facility] Address [address] [place] [address] Care Team Providers Name Role Phone Unavailable Primary Care Provider Unavailable Reason for Visit Reason Comments sx dyspnea sx worsening cough Encounter Details Date Type Department Care Team Description 10/27/2021 Clinical Communication Department of Zoila Infante sx dyspnea; sx Oncology in D, R.N. worsening cough [place], [facility] [address] [place], [place] [address] [facility] [phone] [place] [address] Social History Tobacco Use Types Packs/Day Years [...] or relatives? How often do you attend caodaism or Never 2021 gnosticist services? Do you belong to any clubs or No 08/23/2021 organizations such as caodaism groups, unions, fraternal or athletic groups, or [...] this encounter Miscellaneous Notes Telephone Encounter - Hollie Sky - 10/27/2021 2:33 PM CDT Is there a valid auth to speak with caller? n/a -patient Reason for call: Gene states that his coughing has gotten scary bad to the point where he turns purple from coughing so hard -it is productive with white phlegm. He become lightheaded and dizzy withthese cough attacks. Timothy also shares that he becomes very short of breath on any activity and he feels his heart rate increase. Sporadically he is not able to take a deep breath. He denies chest painwith breathing but does have it when he coughs violently. Gene is receiving treatment locally and was informed to contact his local provider with these concerns. He verbalized understanding and will call today. Thank you, Hollie Medical Admin. Graduate Civil Engineer RST ONC NINFA MED AA POD 3 documented in this encounter Plan of Treatment Not on filedocumented as of this encounter Visit Diagnoses Not on filedocumented in this encounter
--- OUTSIDE RECORDS SUMMARY | 2022-02-01 13:15 | XMS_ITS | Encounter Summary ---
:1960 Author Organization [facility] Address [address] [place] [address] Care Team Providers Name Role Phone Unavailable Primary Care Provider Unavailable Reason for Visit Reason Comments sx headache/body aches Encounter Details Date Type Department Care Team Description 09/18/2021 Clinical Communication Department of Zoila Infante headache/body Oncology in D, RChaya [facility], [address] [place] [address] [address] [facility] [phone] [place] [address] Social History Tobacco Use Types Packs/Day Years [...] do you attend mu-ism or Never 2021 druze services? Do you belong to any clubs [...] this encounter Miscellaneous Notes Telephone Encounter - Amara Glover R.N. - 09/18/2021 2:37 PM CDT SUBJECTIVE CHIEF COMPLAINT / REASON FOR CALL sx headache/body aches Information Discussed I contacted Christiano and let her know that Gene should avoid taking Ibuprofen or any other NSAID medications. We reviewed Tylenol, 1000mg Q6 hours would be OK to take. She asked if he can drink alcohol or have a beer every now and then. I encouraged them to avoid thisfor now, but to ask the provider at their next visit. Christiano verbalized understanding of the information discussed and was grateful for the call. PLAN - will avoid NSAIDs, Tylenol ok for headache - next treatment in [place] Disposition/Recommendation: self-care appropriate at this time, patient encouraged to call back withquestions Information/Education: patient/caller able to teach back Caller agreeable to plan of care: yes The following references were used: nursing clinical judgement Telephone Encounter - Hollie Sky - 09/18/2021 2:21 PM CDT Is there a valid auth to speak with caller? Yes -spouse Reason for call: Christiano would like to know if it is okay that Gene take Ibuprofen. She shares that he has issues with headaches and normally Tylenol would work however he is also having some body achesand would like to take ibuprofen. Christiano states that he has no fever/chilss or other concerning sympto ms. His last treatment was on 09/15. Thank you, Hollie Medical Admin. Cooky Packer RST ONC NINFA [place] AA POD 3 documented in this encounter Plan of Treatment Not on filedocumented as of this encounter Visit Diagnoses Not on filedocumented in this encounter
--- OUTSIDE RECORDS SUMMARY | 2022-02-01 13:15 | XMS_ITS | Encounter Summary ---
:1960 Author Organization [facility] Address [address] [place] [address] Care Team Providers Name Role Phone Unavailable Primary Care Provider Unavailable Reason for Visit Reason Comments Guardant 360 results Encounter Details Date Type Department Care Team Description 09/22/2021 Clinical Communication Department of Donna Mcqueen Oncology in michael [facility] C.N.[place], [place] M.S.N. [address] [facility] [address] [place] [phone] Social History Tobacco Use Types Packs/Day Years [...] or relatives? How often do you attend congregation or Never 2021 presybeterian services? Do you belong to any clubs or No 08/23/2021 organizations such as congregation groups, unions, fraternal or athletic groups, or [...] or the highest technical, or vocational gucci pool degree you have received? Sex Assigned at Date Recorded Male 08/23/2021 10:27 AM CDT documented as of this encounter Plan of Treatment Not on filedocumented as of this encounter Visit Diagnoses Not on filedocumented in this encounter
--- OUTSIDE RECORDS SUMMARY | 2022-02-01 13:15 | XMS_ITS | Encounter Summary ---
:1960 Author Organization [facility] Address [address] [place] [address] Care Team Providers Name Role Phone Unavailable Primary Care Provider Unavailable Reason for Visit Episode Based Medications (Routine) - Authorized Specialty Diagnoses / Procedures Referred By Contact Refer red To Contact Diagnoses Malignant Neoplasm Of Lung Middle Lobe Or Bronchus (HCC) Deepthi Mcqueen Rst Onc [facility] Procedures WA ONDANSETRON HCL INJECTION WA PEMBROLIZUMAB INJ WA CARBOPLATIN INJECTION WA PEMETREXED INJECTION eBssy MONTENEGRO, M.S.N. [address] [place] [address] [place] [phone] Referral ID Status Reason Start Date Expiration Date Visits V isits Requested Authorized [id number] Authorized 09/10/2021 09/10/2022 5 5 Encounter Details Date Type Department Care Team Description 09/15/2021 Education Department of Oncology Deepthi Mcqueen APRN, C.NKatharine, M.S.N. [address] [place] [phone] Malignant Neoplasm Of in Franc, Estefany Castillo R.N. [address] [place] [phone] Right Main Bronchus [place] (HCC) [address] [place] [phone] Social History Tobacco Use Types Packs/Day Years [...] or relatives? How often do you attend jainism or Never 2021 amish services? Do you belong to any clubs or No 08/23/2021 organizations such as jainism groups, unions, fraternal or athletic groups, or [...] Sign Reading Time Taken Comments Blood Pressure 156/83 09/15/2021 7:46 AM CDT Pulse 61 09/15/2021 7:46 AM CDT Temperature 36 ??C (96.8 ??F) 09/15/2021 7:46 AM CDT Respiratory Rate 16 09/15/2021 7:46 AM CDT Oxygen Saturation 97% 09/15/2021 7:46 AM CDT Inhaled Oxygen Concentration - - Weight 81.5 kg (179 lb 10.8 oz) 09/15/2021 7:46 AM CDT Height 164.1 cm (5' 4.61) 09/15/2021 7:46 AM CDT Body Mass Index 30.27 09/15/2021 7:46 AM CDT documented in this encounter Progress Notes Estefany Castillo R.N. - 09/15/2021 8:00 AM CDT I met with Mr. Norris and his to complete chemotherapy Education. Reviewed the pemetrexed and carboplatin, antiemetics, side effects, symptoms to call for and how to reach the care team. He will betransitioned his care to [facility] for the next cycle and already has an appointment time set up for 09/28. I did explain that until he meets with that team, he can call us for any concerns. Once he is established there he should be reaching out to that local team. The genetics were still pending for him so the pembrolizumab Education was not completed today. I did explain that the [facility] team will have to review that with him if they decide to add that in for his cycle 2. He verbalized understand ing of all information shared had no questions per documented in this encounter Plan of Treatment Not on filedocumented as of this encounter Visit Diagnoses Diagnosis Malignant Neoplasm Of Right Main Bronchu s (HCC) documented in this encounter
--- OUTSIDE RECORDS SUMMARY | 2022-02-01 13:15 | XMS_ITS | Encounter Summary ---
:1960 Author Organization [facility] Address [address] [place] [address] Care Team Providers Name Role Phone Unavailable Primary Care Provider Unavailable Reason for Referral Specialty Diagnoses / Procedures Referred By Contact Refer red To Contact Deepthi Mcqueen APRN, [facility] Allison.Luis, M.S.N. 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 On[facility] Deanna MONTENEGRONKatharine, M.S.N. 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 [address] [place] [phone] Referral ID Status Reason Start Date Expiration Date Visits Requ ested Visits Authorized [id number] Closed 09/10/2021 09/10/2022 1 1 Reason for Visit Outpatient (Routine) - Closed Specialty Diagnoses / Procedures Referred By Contact Refer red To Contact Medical Oncology / Diagnoses Malignant Neoplasm Of Bronchus And Lung Multiple Site Right (HCC) Radha Moore [facility] Oncology Tj Ladd [address] [place] [phone] Referral ID Status Reason Start Date Expiration Date Visits Requ ested Visits Authorized [id number] Closed 09/01/2021 09/01/2022 1 1 Encounter Details Date Type Department Care Team Description 09/10/2021 Comprehensive Visit Department of Nell Juarez nt Neoplasm Of Right Main Bronchus (HCC) (Primary Dx); Oncology in [facility], Malignant Neop lasm Of Bronchus And Lung Multiple Site Right (HCC); [place], [place] Tj, Ph.D. Edema Localized 200 [facility] 200 [place] [phone] Social History Tobacco Use Types Packs/Day Years [...] or relatives? How often do you attend gnosticism or Never 2021 zoroastrianism services? Do you belong to any clubs or No 08/23/2021 organizations such as gnosticism groups, unions, fraternal or athletic groups, or [...] highest level of school Associate degree: julieta gennajovani, 08/23/2021 you have completed or the highest technical, or vocational p [employer] degree you have received? Sex Assigned at Date Recorded Male 08/23/2021 10:27 AM CDT documented as of this encounter Last Filed Vital Signs Vital Sign Reading Time Taken Comments Blood Pressure 149/87 09/10/2021 1:26 PM CDT Pulse 61 09/10/2021 1:26 PM CDT Temperature 36.8 ??C (98.3 ??F) 09/10/2021 1:26 PM CDT Respiratory Rate - - Oxygen Saturation 96% 09/10/2021 1:26 PM CDT Inhaled Oxygen Concentration - - Weight 80.7 kg (177 lb 14.6 oz) 09/10/2021 1:26 PM CDT Height - - Body Mass Index 29.68 08/27/2021 9:57 AM CDT documented in this encounter Consult Notes Deepthi Mcqueen APRN, C.N.P., M.S.N. - 09/10/2021 1:40 PM CDT PRIMARY CARE PHYSICIAN No primary care provider on file. REQUESTING PROVIDER Radha Moore M.D. [address] [place] [phone] LOCAL ONCOLOGIST No care engineering team supervisor to display PRIMARY [place] ONCOLOGIST Primary Oncology Team (Lung Care Team Blue): Gabriele Juarez M.D., Ph.D. Deepthi Mcqueen APRN, C.N.P., M.S.N. CHIEF COMPLAINT 1. Lung adenocarcinoma SUBJECTIVE HISTORY OF PRESENT ILLNESS Mr. Norris is a 61 y.o. patient, a former smoker with a 46 pack year history (quit August 2021). Medical history is pertinent for resected prostate cancer in 2015. Oncology History Malignant Neoplasm Of Right Main [...] areas most likely represent vascular lesions/vessels. INTERVAL HISTORY Mr. Norris presents for medical oncology consultation, he is accompanied by his Christiano. He had COVID-19 in February not requiring treatment. He has had a couple months of irritative cough for which a chest x-ray was completed in May with diagnosis of pneumonia without resolution of symptoms with treatment. CT scan was completed in July which showed findings of malignancy. He has had some mild shortness of breath especially at times of coughing jags. Takes codeine cough syrup to help alleviate this especially at night. Mild mid-sternal chest discomfort squeezing sensation occursintermittently. No dysphonia nor dysphagia. Denies fevers. Has been having some symptoms of allergicrhinitis seasonally this year. He has noticed lower leg swelling for the past approximate one week. ECOG performance status 0 = Fully active, able to carry on all pre-disease performance without restriction General: Associated symptoms: arthralgias, chest pain, fatigue, joint swelling and myalgias The following portions of the patient's history were reviewed and updated as appropriate: allergies,current medications, family history, medical history, social history, surgical history and problem list. REVIEW OF SYSTEMS Constitutional: Positive for fatigue, loss of appetite [...] were negative: Skin, Eyes, ENT, GI, Hematologic MEDICAL/SURGICAL HISTORY No past medical history on file. Depression, on an antidepressant. Prostate cancer Arthritis - has trialed Humira. Not currently established with rheumatology. No past surgical history on file. 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 Likely occupational exposures including fiberglass, asbestos, steel dust. Tobacco: Former smoker. He was able to quit cold turkey at time of diagnosis. Originally from [place], has been in [place] for the past 24 years. Usually when in good health attends the gym for a mixed work-out of weights and cardio FAMILY HISTORY No family history on file. His father had a few different types of cancers including prostate cancer and a GI cancer and an unknown cancer and finally a pulmonary malignancy or metastasis. Otherwise non-contributory for malignancy. OBJECTIVE VITAL SIGNS BP 149/87 (BP Location: Right arm, Patient Position: Sitting) Pulse 61 Temp 36.8 ??C (Tympanic) Wt 80.7 kg SpO2 96% BMI 29.68 kg/m?? PHYSICAL EXAM Vitals reviewed. Constitutional Appearance: Normal appearance. He is not ill-appearing. Eyes Conjunctiva/sclera: Conjunctivae normal. Cardiovascular Rate and Rhythm: Normal rate and regular rhythm. Heart sounds: Normal heart sounds. Pulmonary Effort: Pulmonary effort is normal. Breath sounds: Normal breath sounds. Comments: Clear percussion throughout. Musculoskeletal General: No swelling. Normal range of motion. Left lower le+ Pitting Edema present. Lymphadenopathy Cervical: No cervical adenopathy. Skin General: Skin is cool and dry. Capillary Refill: Capillary refill takes less than 2 seconds. Findings: No rash. Nails: There is no clubbing. Neurological General: No focal deficit present. Mental Status: He is alert. Motor: No weakness. Gait: Gait normal. Psychiatric Mood and Affect: Mood normal. Behavior: Behavior normal. LABORATORY DATA No visits with results within 1 Week(s) from this visit. Latest known visit with results is: Hospital Outpatient Visit on 08/28/2021 Component Date Value ??? Case Number 08/28/2021 [id number] (A) ??? Report electronically si* 08/28/2021 (A) Value:Lele Hightower M.D., Ph.D. I verify that I have examined all relevant slides/materials for the specimen(s) and rendered or confirmed the diagnosis. ??? Gross Description 08/28/2021 (A) Value:A: Received 3 spray-fixed smears, 3 Diff-Quik stained smears, and 3cc of blood-tinged fluid. Specimen evaluated for adequacy on site. B: [...] is submitted en toto in cassette C1. Grossed by KARY. ??? Source 08/28/2021 (A) Value:A. Lymph node, Station 4 left, EBUS fine needle aspiration B. Lymph node, Station 7, EBUS fine needle aspiration C. Lung, Right middle lobe bronchus, biopsy ??? Addendum 08/28/2021 (A) Value:Right middle lobe bronchus, Station 7, Station 4 left , specimen for PD-L1 immunohistochemistry studies (clone [id number], [employer] [place], [place], [place]; using a proprietary detection system) (C1): There are too few tumor cells to evaluate for PD-L1 expression. Interpretation: Studies suggest that positive PD-L1 immunohistochemistry in tumor cells and/or tumor-associated immune cells may predict tumor response to therapy with immune checkpoint inhibitors. This result should not be used as the [...] reagent. Its performance characteristics were determined by [facility] in a manner consistent with CLIA requirements. This test has not been cleared or approved by the U.S. Food and Drug Administration. Genetic testing for Solid Tumor Targeted Cancer Panel (CAPN) will be performed and resulted in the patient's medical record. Signed by Jaime Claire M.D. 09/09/2021 12:51 PM ??? Interpretation 08/28/2021 (A) Value:A. Lymph node, Station 4 left, EBUS fine needle aspiration (smears/cell block): Negative for malignancy. Lymphocytes consistent with sampled lymph node. B. Lymph node, Station 7, EBUS fine needle aspiration (smears/cell block): Positive for malignancy. Metastatic adenocarcinoma. C. Lung, Right middle lobe bronchus, biopsy (tissue): Positive for malignancy. Adenocarcinoma. Immunohistochemistry performed for both Parts B and C demonstrate that the cells of interest are focally positive for TTF1 and negative for p40, supporting the diagnosis of adenocarcinoma (consistent with a lung primary). RADIOLOGICAL DATA MR Brain without and with IV Contrast Result Date: 09/10/2021 Impression: 1. No evidence of intracranial metastatic disease. 2. The previously described tiny enhancing areas most likely represent vascular lesions/vessels. 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 Norris is a 61 y.o. patient diagnosed with right middle lobe lung adenocarcinoma. Stage is IIIB (T2, N3, M0). Brain imaging is negative. PD-L1 testing not able to be completed due to tissue insufficiency. MCSTP is pending. Guardant has been ordered for him to complete today. He has met with colleagues in radiation oncology today with subsequent multidisciplinary tumor boarddiscussion and recommendation for induction systemic therapy followed by re-evaluation for consideration of induction chemoradiation. This will include carboplatin and pemetrexed for cycle 1 with intent to add pembrolizumab for cycle 2 pending genetic results. After 3-4 cycles of induction chemoimmunotherapy we will reassess for possibility of definitive intent treatment course consisting of 6 weeks of chemotherapy and radiation given concurrently. Chemotherapy side effects could include but are not limited to cytopenias, fatigue, nausea / vomiting, hair thi nning, dermatitis, neuropathies. Discussed history of autoimmune diagnoses which includes rheumatoid arthritis. Immunotherapy side effects can include fatigue, dermatitis, endocrinopathies, colitis, arthritis. Other conditions can occur and sometimes can be serious, which can include but are not limited to pneumonitis, hepatitis, nephritis. Inflammation can affect any body system. Uncommonly side effects can beserious to the point of hospitalization or mortality. Plan: Carboplatin and Pemetrexed cycle 1 next week Consult medical oncology [place] for continuity of care closer to home. I have requested from scheduling for him to start treatment here next week to allow for more time for him to establish with the care team at [place] for subsequent cycles. Consider adding pembrolizumab with cycle 2 pending genetic testing Restaging imaging prior to cycle 4 and re-consult with radiation oncology at that time. #3 Unilateral ankle edema in the setting of malignancy For rule out of DVT I have written for left leg venous ultrasound with doppler today Update: this is negative. Continue to monitor. PATIENT EDUCATION Ready to learn, no apparent learning barriers were identified; learning preferences include listening. Explained diagnosis and treatment plan; patient expressed understanding of the content. Gabriele Jefferson M.D., Ph.D. - 09/10/2021 1:40 PM CDT CHIEF COMPLAINT/PUPROSE OF VISIT: Stage IIIB adenocarcinoma of the lung Primary oncology team is Dr. Juarez/ [facility] Blue Team This is a supervisory note. Mr. Norris was seen in Lung Blue Team. Please refer to the excellent note of Mrs Mcqueen for a full history, physical, review of systems. I have reviewed the note and confirmed findings and recommendations. HISTORY OF PRESENT ILLNESS: Mr. Norris is a 61 y.o. male with the following oncologic history: Oncology History Malignant Neoplasm Of Right Main [...] Too few cells to evaluate PD-L1 expression. 08/28/2021 Clinical Stage Staging form: Lung, AJCC 8th Edition - Clinical stage from 08/28/2021: Stage IIIB (cT2a, cN3, cM0) Stage prefix: Initial diagnosis Laterality: Right Tumor size (mm): 45 Type of lung cancer: Locally advanced or metastatic non-small cell lung cancer Stage used in treatment planning: Yes National guidelines used in treatment planning: Yes Type of national guideline used in treatment planning: NCCN 09/10/2021 Imaging MR Brain - IMPRESSION: 1. No evidence of intracranial metastatic disease. 2. The previously described tiny enhancing areas most likely represent vascular lesions/vessels. 09/14/2021 - Chemotherapy Pembrolizumab / PEMEtrexed / CARBOplatin Start Date: 09/14/2021 (Planned) VITAL SIGNS: Vitals: 09/10/21 1326 BP: 149/87 BP Location: Right arm Patient Position: Sitting Pulse: 61 Temp: 36.8 ??C TempSrc: Tympanic SpO2: 96% Weight: 80.7 kg DIAGNOSTICS: I reviewed the imaging studies and agree with the interpretation as recorded. I reviewed the pertinent laboratory and diagnostic data. 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 Due to the extent of the disease everybody feels more comfortable if we start with systemic treatment. Given the fact that histumor's genetic testing is pending we would start with a cycle of pemetrexed carboplatin as soon as next week and tailor further treatment pending the results of the genetic testing. After a total of 4cycles of systemic therapy we will re-evaluate with imaging to consider consolidation chemotherapy radiation. PLANNING: - start systemic therapy next week PATIENT EDUCATION Ready to learn, no apparent learning barriers were identified; learning preferences include listening. Explained diagnosis and treatment plan; patient expressed understanding of the content. Discussed with the patient we work together as a care team of physicians, nurse practitioners/physician assistants, nurses and other net application support specialist that specialize in this cancer. Also, reviewed the importance of maintaining ongoing care with local oncology team and primary care physician. ADMINISTRATIVE BILLING I personally spent over half of a total 60 minutes face to face with the patient in counseling and discussion and/or coordination of care as described above. Answers for HPI/ROS submitted by the patient on 08/23/2021 Fatigue: Yes Loss of appetite: Yes Night sweats: Yes No eye issues: Yes No ENT issues: Yes Chest pain, pressure or tightness: Yes Rapid or fluttering heart beats: Yes Swelling in the legs or feet: Yes Shortness of breath: Yes Coughing up mucus (phlegm): Yes Dry cough: Yes Wheezing: Yes No GI issues: Yes Muscle pain/stiffness: Yes Pain or stiffness in the joints: Yes Joint swelling: Yes No skin issues: Yes No neurologic issues: Yes Excessive daytime sleepiness/tiredness: Yes Little interest or pleasure in doing things: Yes No blood/lymph issues: Yes Difficulty urinating: Yes documented in this encounter Plan of Treatment Scheduled Referrals Name Type Priority Associated Diagnoses Order S chedule Oncology - Medical, Outpatient Referral Routine Malignant Neop lasm Expected: general consult Of Right Main 09/10/2021 (clinic) Bronchus (HCC) (Approximate), Malignant Neoplasm Expires: Of Bronchus And Lung 023 Multiple Site Right (HCC) Oncology - Chemo Outpatient Referral Routine Malignant Neoplas m Expected: education visit Of Right Main 09/10/2021, (clinic) Bronchus (HCC) Expires: 09/10/2022 documented as of this encounter Results Thyroid Function [place] (09/15/2021 6:39 AM CDT) athologist Signature TSH, Sensitive 0.4 0.3 - 4.2 09/15/2021 DTL mIU/L 7:58 AM CDT Specimen Anatomical Collection Method Collection Time Receive d Time (Source) Location / / Volume Laterality Blood (Blood, 09/15/2021 6:39 AM 09/16/19 7:23 Venous) CDT AM CDT Deepthi Mcqueen APRN, C.N.P., M.S.N. LAB BLOOD ADD-O N Performing Organization Address City/State/ZIP Code Phon e Number [facility] - 200 [place], [place] [address] [place] [address] [facility] [address] [facility] (ABNORMAL) Comprehensive Metabolic Panel (09/15/2021 6:39 AM CDT) athologist Signature Potassium, S 4.7 3.6 - 5.2 09/15/2021 DTL mmol/L 7:58 AM CDT Sodium, S 136 135 - 145 09/15/2021 DTL mmol/L 7:58 AM CDT Chloride, S 99 98 - 107 09/15/2021 DTL mmol/L 7:58 AM CDT Bicarbonate, S 22 22 - 29 09/15/2021 DTL mmol/L 7:58 AM CDT Anion Gap 15 7 - 15 09/15/2021 DTL 7:58 AM CDT BUN (Blood Urea 20 8 - 24 09/15/2021 DTL Nitrogen), S mg/dL 7:58 AM CDT Creatinine 0.82 0.74 - 09/15/2021 DTL 1.35 mg/dL 7:58 AM CDT eGFR-Non >90 >=60 09/15/2021 DTL Black/ mL/min/BSA 7:58 AM CDT Indian Comment: ----ADDITIONAL INFORMATION---- Estimated GFR calculated using the 2009 CKD_EPI creatinine equation. eGFR-Black/ >90 >=60 mL/min/BSA 2021 7:58 AM CDT DTL Comment: ----ADDITIONAL INFORMATION---- Estimated GFR calculated using the 2009 CKD_EPI creatinine equation. Calcium, Total, S 10.3 (H) 8.8 - 10.2 mg/dL 09/15/2021 7:58 AM CDT DTL Glucose, S 181 (H) 70 - 140 mg/dL 09/15/2021 7:58 AM CDT D TL Protein, Total, S 7.3 6.3 - 7.9 g/dL 09/15/2021 7:58 A M CDT DTL Albumin, S 4.3 3.5 - 5.0 g/dL 09/15/2021 7:58 AM CDT D TL Aspartate Aminotransferase 32 8 - 48 U/L 09/15/2021 7 :58 AM CDT DTL (AST), S Alkaline Phosphatase, S 125 40 - 129 U/L 09/15/2021 7: 58 AM CDT DTL Alanine Aminotransferase 35 7 - 55 U/L 09/15/2021 7:5 8 AM CDT DTL (ALT), S Bilirubin, Total, S 0.2 <=1.2 mg/dL 09/15/2021 7:58 AM CDT DTL Specimen Anatomical Collection Method Collection Time Receive d Time (Source) Location / / Volume Laterality Blood (Blood, 09/15/2021 6:39 AM 09/16/19 7:23 Venous) CDT AM CDT Deepthi Mcqueen APRN C.N.P., M.S.N. LAB BLOOD ADD-O N Performing Organization Address City/State/ZIP Code Phon e Number [facility] - [address] [place], [place] [address] [place] [address] [facility] [address] (ABNORMAL) CBC with Differential, Blood (09/15/2021 6:39 AM CDT) [facility] Method Time Signature Hemoglobin 12.0 (L) 13.2 - 09/15/2021 DTL 16.6 g/dL 7:29 AM CDT Hematocrit 36.2 (L) 38.3 - 09/15/2021 DTL 48.6 % 7:29 AM CDT Erythrocytes 4.12 (L) 4.35 - 09/15/2021 DTL 5.65 7:29 AM CDT x10(12)/L MCV 87.9 78.2 - 09/15/2021 DTL 97.9 fL 7:29 AM CDT RBC Distrib Width 12.6 11.8 - 09/15/2021 DTL 14.5 % 7:29 AM CDT Platelet Count 555 (H) 135 - 317 09/15/2021 DTL x10(9)/L 7:29 AM CDT Leukocytes 10.4 (H) 3.4 - 9.6 09/15/2021 DTL x10(9)/L 7:29 AM CDT Neutrophils 9.54 (H) 1.56 - 09/15/2021 DTL 6.45 7:29 AM CDT x10(9)/L Lymphocytes 0.61 (L) 0.95 - 09/15/2021 DTL 3.07 7:29 AM CDT x10(9)/L Monocytes 0.23 (L) 0.26 - 09/15/2021 DTL 0.81 7:29 AM CDT x10(9)/L Eosinophils <0.03 0.03 - 09/15/2021 DTL 0.48 7:29 AM CDT x10(9)/L Basophils <0.03 0.01 - 09/15/2021 DTL 0.08 7:29 AM CDT x10(9)/L Specimen Anatomical Collection Method Collection Time Receive d Time (Source) Location / / Volume Laterality Blood (Blood, 09/15/2021 6:39 AM 09/16/19 7:09 Venous) CDT AM CDT Deepthi Mcqueen APRN, C.N.P., M.S.N. LAB BLOOD ADD-O N Performing Organization Address City/State/ZIP Code Phon e Number [facility] - [address] [place], [place] [address] [place] [address] [facility] [address] [place] [address] CDx - Sent Out Lab (09/10/2021 3:44 PM CDT) [facility] gist Method Time Signature [place] [address] SEE COMMENT 09/22/2021 GUAR CDx 10:40 AM CDT Comment: For final report, select Lab-Send Out L ab Results hyperlink below. Specimen Anatomical Collection Method Collection Time Receive d Time (Source) Location / / Volume Laterality Varies (Blood, 09/10/2021 3:44 PM 022 8:13 Venous) CDT AM CDT Narrative [facility] - 09/22/2021 10:40 AM CD T Specimen Information: Specimen ID: [id number] Specimen Type: Varies Specimen Collection Start Date: 09/11/19 ??3:44 PM Specimen Received Date: 09/11/2021 ??8:1 3 AM Specimen ID: [id number] Specimen Type: Varies Specimen Collection Start Date: 09/11/19 ??3:44 PM Specimen Received Date: 09/11/2021 ??8:1 3 AM Deepthi Mcqueen APRN C.N.PAllen, M.S.N. LAB GENETIC [facility] Performing Organization Address City/State/ZIP Code Phon e Number [facility] [address] [place] [address] [place], [place] [address] [phone] [place] Lower Extremity Veins Left (09/10/2021 3:13 [...] man agement can be found on the [employer] site. Link [email or web address] Procedure Note Lele Harrison M.B., B.Ch. - [...] man agement can be found on the [employer] site. Link [email or web address] IMPRESSION: Negative for acute DVT. Deepthi Mcqueen APRN, C.N.P., M.S.N. IM US PROCEDUR ES documented in this encounter Visit Diagnoses Diagnosis Malignant Neoplasm Of Right Main Bronchu s (HCC) - Primary Malignant Neoplasm Of Bronchus And Lung Multiple Site Right (HCC) Edema Localized Malignant Neoplasm Of Right Main Bronchu s (HCC) Edema Localized Malignant Neoplasm Of Right Main Bronchu s (HCC) documented in this encounter
--- OUTSIDE RECORDS SUMMARY | 2022-02-01 13:16 | XMS_ITS | Clinical Summary ---
:1960 Author Organization [facility] [place] [address] Care Team Providers Name Role Phone Hakeem Cunningham Edmundeunice [facility] Primary Care Provider [phone] Ray Corona MD Unavailable Alejandra Fam RN, BSN, OCN Unavailable [phone] Gabriele Juarez Unavailable Aidee Sanchez MD Unavailable Allergies No known active allergies Medications Medication Sig Dispensed Refills Start End Date Status Date omeprazole Take 1 Capsule 90 Capsule 3 Act giovanni (PRILOSEC) 40 mg (40 mg) by mouth 2 Delayed-Release once daily before capsuleIndicatio a meal. ns: Chronic GERD escitalopram Take 1 Tablet (10 90 Tablet 2 Active oxalate mg) by mouth 2 (LEXAPRO) 10 mg every morning. tabletIndication s: Major depressive disorder, recurrent, moderate (HC) benzonatate Take 1 Capsule 90 Capsule 2 Ac tive (TESSALON) 200 (200 mg) by mouth 2 mg 3 times daily if capsuleIndicatio needed for Cough. ns: Cough folic acid 1 mg Take 1 mg by 0 A ctive tablet mouth once daily. ondansetron Take 8 mg by 0 Activ e (Zofran) 8 mg mouth every 8 tablet hours if needed for Nausea/Vomiting. tadalafiL Take 20 mg by 0 Active (CIALIS;ADCIRCA) mouth once daily 20 mg tablet if needed for Erectile Dysfunction. Take 30 minutes before sexual activity. aspirin-acetamin Take 1 Tablet by 0 Active ophen-caffeine mouth every 6 (Excedrin hours if needed Migraine) for Headache. Max 250-250-65 mg acetaminophen dose: 4000mg in 24 hrs. albuterol HFA Inhale 2 Puffs by 8.5 g 0 Active (PRO-AIR; mouth every 4 2 VENTOLIN; hours while PROVENTIL) 90 awake. mcg/actuation inhalerIndicatio ns: Cough, Pneumonia, bacterial dilTIAZem CD Take 1 Capsule 90 Capsule 3 A ctive (CARDIZEM CD) (240 mg) by mouth 2 240 mg extended once daily. release 24 hr Replaces previous capsuleIndicatio RX ns: PAF (paroxysmal atrial fibrillation) (HC) colchicine 0.6 Take 1 Tablet 120 Tablet 0 Active mg (0.6 mg) by mouth 2 tabletIndication in the morning s: Pericarditis, and 1 Tablet (0.6 unspecified mg) in the chronicity, evening. unspecified type oxyCODONE-acetam Take 1 Tablet by 17 Tablet 0 Active inophen mouth every 6 2 (Percocet) 5-325 hours if needed mg per for Pain. Max tabletIndication acetaminophen s: Malignant dose: 4000mg in neoplasm of 24 hrs. hilus of right lung (HC) ibuprofen Take 1 Tablet 360 Tablet 0 Activ e (ADVIL; MOTRIN) (800 mg) by mouth 2 800 mg every 6 hours if tabletIndication needed for Pain. s: Pericarditis, unspecified chronicity, unspecified type, Arthralgia, unspecified joint codeine-guaiFENe Take 10 mL by 373 mL 2 Active sin (ROBITUSSIN mouth every 4 2 AC) 10-100 mg/5 hours if needed mL for Cough. Max liquidIndication dose 60 mL per 24 s: Cough hrs. oxyCODONE Take by mouth 0 Active (ROXICODONE) 5 every 4 hours if 2 mg immediate needed. release tablet pantoprazole Take 1 Tablet (40 30 Tablet 0 01/06/20 Discontinued (PROTONIX) 40 mg mg) by mouth once 2 22 (*Patient states delayed-release daily before a no longer tabletIndication meal. josefina ing/Not on s: Pericarditis, sen ding facility unspecified list) chronicity, unspecified type Active Problems Problem Noted Date Pleural effusion 11/19/2021 Metastatic lung carcinoma, right 11/18/2021 Pneumonia due to infectious organism 11/17/2021 Atrial fibrillation and flutter 11/17/2021 Chest pain 11/17/2021 Malignant neoplasm of hilus of right lung 08/01/2021 History of prostate cancer 08/01/2021 Malignant neoplasm of bronchus of middle lobe 08/02/19 Malignant tumor of prostate 06/23/2021 Inguinal hernia, left 10/14/2020 History of colonic polyps 02/27/2018 Polyp of colon 02/23/2018 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 08/26/2016 Lumbar radiculopathy 08/26/2016 Rheumatoid arthritis 08/11/2015 S/P total right knee replacement 07/05/2015 Hyperglycemia 07/05/2015 Overview: Glucose of 353 noted with labs on 6 - no history of diabetes mellitus. Recent steroids and surgeries. Recommend follow up in clinic with consideration of fasting glucose/ A1c. S/P prostatectomy 06/10/2015 Vitamin D deficiency 06/02/2012 Arthritis 05/13/2011 Gilbert's syndrome 09/23/2009 Myalgia and myositis, unspecified 09/16/2009 Mixed hearing loss, unilateral 05/30/2007 Overview: RIGHT Sensorineural hearing loss, unilateral 05/30/2007 Unspecified tinnitus 05/30/2007 Thoracic or lumbosacral neuritis or radiculitis, unspe cified 10/18/2006 Lumbago 10/12/2006 Other specified disorders of rotator cuff syndrome of shoulder and allied 05/06/2006 disorders Overview: partial tear of distal subscapularis ten don and biceps tendinitis. Impotence of organic origin 01/11/2006 Pericarditis Resolved Problems Problem Noted Date Resolved Date Pericarditis 11/18/2021 11/18/2021 Pain medication agreement 01/01/2016 02/28/2018 Pain medication agreement 02/10/2012 09/04/2015 Encounters Date Type Specialty Care Team Description 01/19/2022 Orders Only Scanner <No scans attac hed> 01/05/2022 Preop Visit Ruben Ruiz, Preoperative Ex am (DOS Kaley Azul MD 01/07 at [facility] nce Update (COVID-1 9 test done Declines f melly shot) 01/05/2022 Telephone [facility] cardiac abiel Royal MD 01/05/2022 Orders Only Ruben Ruiz, <No scans attac hed> Kaley Azul MD 01/05/2022 Travel 01/05/2022 Telephone Vivian, Appointment Redanis Lange NP 12/24/2021 Orders Only Scanner <No scans attac hed> 12/23/2021 Refill Hakeem Cunningham Refill Reques t Marty Byrd (codeine-g uaiFENesin (ROBITUSSIN AC) 10-100 mg/5 mL liquid & ibuprofen (ADVI L; MOTRIN) 800 mg tablet) 12/13/2021 Refill Hakeem Cunninghamill RequMarty Henderson (Codeine-g uaifenesin) 12/11/2021 Office Visit Hakeem Cunningham Pain (Whole b tyron pain ) Marty Byrd 12/11/2021 Travel 12/09/2021 Orders Only Lab, [facility] 12/09/2021 Office Visit Cathy Prather U p ([facility], feeli ng better, still h aving feelings of hea rt racing. ) 12/09/2021 Travel 12/01/2021 Hospital Encounter Hakeem Cunningham Pericar dial effusion Marty Byrd 12/01/2021 Patient Outreach Ernestina Jones Care Management Dat, ZAIN (2nd clinician outreach) 12/01/2021 Travel 11/26/2021 Telephone Stephen Stone MD Cardiovas cular Diagnostic Test ing (INCOMING REFER RAL WORK QUEUE); Cardiol ogy Appointment 11/25/2021 Office Visit Hakeem Cunningham [facility] F/U (DOD: Marty Bryd 11/19/21 - Pneumonia ) 11/25/2021 Travel 11/24/2021 Patient Outreach Priscila Wilson RN ACT Care Management (/ACT Care Armida mix - RN outreach [facility]) 11/20/2021 Refill Hakeem Cunningham Refnaeem Byrd, [facility] 11/20/2021 Patient Outreach Saroj Newman RN Pri mary RN Care Management; Hos pital F/U (D/C Date: 11/19/21) 11/17/2021 - Hospital Encounter Melissa Salo Los, [place] eoplasm of hilus of right lung (Primary Dx); 11/19/2021 PA Pneumonia of right middle lobe due to in fectious organism; Ha Serna MD Chest wall pain; Shadi, Cancer associ ated pain; Robb Canela K H, M BBS Cough; Caitlin Li Leukocytosi s, unspecified type; MD Angelique Pericarditis, unspecified chronicity, un specified type; s, U Hospitalist PAF (paro xysmal atrial fibrillation) (HC); Svc Pleural effusio n Discharge Summary - Caitlin Pabon MD - 11/19/2021 2:26 PM CDT Images from the original not e were not included. HOSPITALIST DISCHARGE SUMMAR Y ? ? [facility] Admission Date: 11/17/2021 Discharge Date: 11/19/2021 Discharge Plan: Cash Tinoco was discharged to home. Principal Diagnosis Post obstructive pneumonia Hospital Problem List Principal Problem: Pneumonia due to infectious organism Active Problems: Mixed hearing loss, unilate ral Gilbert's syndrome Rheumatoid arthritis (HC) Malignant neoplasm of hilus of right lung (HC) History of prostate cancer Atrial fibrillation and flu tter (HC) Chest pain Pericarditis Metastatic lung carcinoma, right (HC) Large right hilar lung adeno carcinoma ADDITIONAL COMMENTS REGARDIN G DIAGNOSIS SPECIFICITY Additional Diagnosis Informa tion ?? Hospital Course Cash Tinoco is a 61 y.o. male with a history of prostate ca rheumatoid arhthritis and Large right hilar lung adenocarcinoma on ongoing chemo and radiation at [place] that came from at home 11/16 du e to worse cough with white sputum no hemoptysis and worse shortness of breath ; he thinks his severe cough caused chest pain and shortness of breath In ED heart rate Went up to 140s after cough and EKG showed a fib and diffuse ST elevation His CT chest showed ` 1. ??Worsening consolidation of the right middle lobe when compared 08/13/2021 secondary to the enlarging right hilar mass, postobstructive pneumonia cannot be completely excluded. 2. ??Significant worsening o f the mediastinal metastatic adenopathy. 3. ??Multifocal narrowing of the branches of the right pulmonary artery secondary to a large hilar mass, with occlusion of the pulmonary artery vessels supplying the right middle lobe. 4. ??Interval development of multiple small right-sided pulmonary nodules several which have peripheral areas of groundglass, the largest of which measures 8 mm in the right upper lobe given their inter brianna rapid development in the patient's history these are concerning for metastatic foci. 5. ??Interval development of septal edema and thickening in the right lower lobe and a small right-sided effusion, may reflect compression and/or occlusion of the pulmonary veins and/or lymphatics secon lisa to the extensive neopla stic involvement of the hilum and mediastinum. 6. ??Small pericardial effus ion` Patient cardioverted sponta neously to NSR but had another episode 11/19 and was given iv cardizem briefly so ok discharge with cardizem cd 180 mg [address] [facility] Also ibuprofen and colchicin e per cardiology for pericarditis & small pericardial effusion ; plan follow up echo in 1 week ; per cardiology these likely secondary chemo keytruda ;patient sees oncology at [place] and should follow up there Also seen by pulmonary with severe wheezing and shortness of breath Started on decadron and breathing improved ok discharge with 7 days decadron & augmentin ; s/p FLEXIBLE LARYNGOSCOPY pln ENT evaluation As outpatient Plan discharge later today negative Right lower extremity Us here Per cardiology Small Pericardial Effusion, Pericarditis A. Effusion likely sequelae of Keytruda, but could also be result of pericarditis from viral illness. ESR 61, CRP 24 B.??Awaiting oncology consul t re Keytruda. Regardless, treating with Ibuprofen 600mg TID (two weeks, start taper once inflammatory markers normalize), colchicine 0.6mg BID x 3 months, and Protonix 40mg QD (GI prophylaxis). Pulm st arted steroids. Limited TTE one week. ?? Metastatic Adenocarcinoma Post-obstructive Pneumonia A. Follow sergo Sanchez at [place], recommending delaying dose 4/5 on XRT. Pulmonary added Dexamethasone 4mg BID Also pt wants valium at disc harge will order Recommendations for Outpatie nt Provider ? ? PCP: Hakeem Cunningham, [facility] Recommendations for outpati ent provider Specific recommendations to be addressed at the follow up visit: Hospital follow up Medication regimen changes: start augmentin and dexamethasone Colchicine 3 months Ibuprofen 2 weeks and taper per inflammatory markers Follow-up labs/imaging: echo follow up 1 week Cardiology follow up oncology follow up Functional evaluations: Fall Risk: Total Score (If 5 or > is High Risk): 2 (11/19/21799) NuDESC (>/=2 abnormal): 0 ( 11/19/21799) MOCA: // SLUMS: Discharge Medications Your Home Medicines START taking these medicines Instructions amoxicillin-clavulanate (875 MG-125 MG) tablet For diagnoses: Pneumonia of right middle lobe due to infectious organism Commonly known as: AUGMENTIN Take 1 Tablet by mouth in t he morning and 1 Tablet in the evening. Take with meals. Do all this for 7 days. colchicine 0.6 mg tablet For diagnoses: Pericarditis, unspecified chronicity, unspecified type Take 1 Tablet (0.6 mg) by m outh 2 times daily. dexAMETHasone 4 mg tablet For diagnoses: Neoplasm of h ilus of right lung Commonly known as: DECADRON Take 1 Tablet (4 mg) by ozzy th 2 times daily with meals for 7 days. diazePAM 2 mg tablet For diagnoses: Cancer associ ated pain, Pericarditis, unspecified chronicity, unspecified type Commonly known as: VALIUM Take 0.5 Tablets (1 mg) by mouth 2 times daily if needed for Muscle Spasm for up to 7 days. dilTIAZem CD 180 mg extended release 24 hr capsule For diagnoses: PAF (paroxysm al atrial fibrillation) (HC) Start taking on: November 20 Commonly known as: CARDIZEM CD Take 1 Capsule (180 mg) by mouth once daily. ibuprofen 600 mg tablet For diagnoses: Pericarditis, unspecified chronicity, unspecified type Commonly known as: ADVIL; MO CHARLES Take 1 Tablet (600 mg) by m outh 3 times daily with meals for 14 days. Maximum of 3200 mg in 24 hours. oxyCODONE 5 mg immediate rel ease tablet For diagnoses: Pericarditis, unspecified chronicity, unspecified type Commonly known as: ROXICODON E Take 1-2 Tablets (5-10 mg) by mouth every 6 hours if needed for Pain. CONTINUE taking these medici edgar Instructions albuterol HFA 90 mcg/actuati on inhaler For diagnoses: Cough, Pneumo jonatan, bacterial Commonly known as: PRO-AIR; VENTOLIN; PROVENTIL Inhale 2 Puffs by mouth debra ry 4 hours while awake benzonatate 200 mg capsule For diagnoses: Cough Commonly known as: TESSALON Take 1 Capsule (200 mg) by mouth 3 times daily if needed for Cough. codeine-guaiFENesin 10-100 m g/5 mL liquid For diagnoses: Cough Commonly known as: ROBITUSSI N AC Take 10 mL by mouth every 4 hours if needed for Cough. Max dose 60 mL per 24 hrs. escitalopram oxalate 10 mg t ablet For diagnoses: Major depress giovanni disorder, recurrent, moderate (HC) Commonly known as: LEXAPRO Take 1 Tablet (10 mg) by mo uth every morning. Excedrin Migraine 250-250-65 mg Generic drug: aspirin-acetam inophen-caffeine Take 1 Tablet by mouth ever y 6 hours if needed for Headache. Max acetaminophen dose: 4000mg in 24 hrs. folic acid 1 mg tablet Take 1 mg by mouth once bree ly. omeprazole 40 mg Delayed-Rel ease capsule For diagnoses: Chronic GERD Commonly known as: PRILOSEC Take 1 Capsule (40 mg) by m outh once daily before a meal. tadalafiL 20 mg tablet Commonly known as: MAURICIO;LICHA CIRCA Take 20 mg by mouth once da brianna if needed for Erectile Dysfunction. Take 30 minutes before sexual activity. Zofran 8 mg tablet Generic drug: ondansetron Take 8 mg by mouth every 8 hours if needed for Nausea/Vomiting. Where to get your medicines These medications were sent to [facility] [address] [place] [address] Hours: M-F 8am-9pm,Sat/Sun/ Holiday 8:30am-4:30pm ?? amoxicillin-clavulanate ( 875 MG-125 MG) tablet ?? colchicine 0.6 mg tablet ?? dexAMETHasone 4 mg tablet ?? diazePAM 2 mg tablet ?? dilTIAZem CD 180 mg exten ded release 24 hr capsule ?? ibuprofen 600 mg tablet ?? oxyCODONE 5 mg immediate release tablet Pertinent Findings / Procedu res First weight: 79.8 kg (175 l b 14.8 oz) (11/17/2115) Last weight: 79.8 kg (175 lb 14.8 oz) (11/17/2115) Consultants Encounter Notes Consults from Bashir Contreras DO (Critical Care Medicine) Consults from Danitza Stone MD (Cardiovascular Disease) Diet / Activity / Follow-Up After Discharge Orders and I nstructions Primary Care Provider divine w up appointment(s) Dat [facility] When to follow up: 1 to 5 d ays Regular diet: - eat a wide variety of eusebio ds, including fruits and vegetable, dairy, grains and meats - limit the amount of solid fat such as butter, margarine and shortening - get most of your fat sourc es from fish, nuts and vegetable oils Up as tolerated Get regular activity and tr y to walk for a total of 30 minutes per day. Start by walking for 5 to 10 minutes at one time and slowly build to walking for 30 minutes one time. Rest is also an important pa rt of healing. Slowly return to your regular level of activity. Save your energy by spreading out activities that make you tired. Rest as needed. When should you be concerne d? Your health care provider i s: Hakeem Cunningham [facility] Please call your health care provider if: - you feel you are getting w orse or having an increase in problems - fever greater than 101 deg shobha - increasing shortness of br eath - any signs of infection (in creasing redness, swelling, tenderness, warmth, change in appearance, or increased drainage) - blood in your urine or sto ol - coughing or vomiting blood - nausea (upset stomach) and vomiting and/or diarrhea that will not stop - severe pain that is not re lieved by medicine, rest or ice Call 911 if you feel you are having a medical emergency. [facility] were [facility] at the [facility]? You were in the hospital fo r pneumonia and pericarditis Pending Studies Lab results that may not be resulted at time of discharge: (From admission through now) None Total time spent on discharg e coordination: 35 minutes. Patient was seen and examined today. Caitlin Li MD Hospitalist, [facility] ? ? [phone] 11/16/2021 Phone Office Visit Hakeem Cunningham, [facility] 11/16/2021 [facility] 11/16/[facility]21 Travel 11/16/2021 Telephone Hakeem Cunningham A ppointment Request [facility] (Sooner appoint ment ) 11/10/2021 Refill Hakeem Cunningham R efill Request (Albuterol [facility]) from Last 3 Months Immunizations Name Administration Dates Next Due COVID-19 vaccine (Nurego 09/24/2020, 09/03/2020 30mcg/0.3mL) PF, MDV Hepatitis B (Adult) 11/23/2013, 07/03/2013, 06/04/2013 Influenza RIV4 (Age 18+ Years) PRESERV 02/12/2021, 0 FREE Influenza Virus, Unspecified 02/06/2019 Influenza, IIV3 (Age >=3 years) 01/20/2015 Influenza, IIV4 (=>6mos) MDV 02/26/2019, 01/21/2018, 017 Tdap 03/05/2021, 12/09/2008 Tuberculin (PPD) 09/15/2010 Family History Medical History Relation Name Comments Cancer-prostate Father Relation Name Status Comments Father Social History Tobacco Use Types Packs/Day Years Used Date Former Smoker Cigarettes 0.9 45 Quit: 07/29/19 22 Smokeless Tobacco: Never Used Tobacco Cessation: Ready to Quit: No; Co unseling Given: Yes Comments: 5-6 per day Alcohol Use Standard Drinks/Week Comments Yes 0 (1 standard drink = 0.6 oz pure alcoho l) beer-12 pack in one wk Alcohol Habits Answer Date Recorded How often do you have a drink containing alcohol? 2-3 times a week 11/02/2018 How many drinks containing alcohol do you have on a Not aske d typical day when you are drinking? How often do you have six or more drinks on one Not asked occasion? Comment: Not asked Sex Assigned at Date Recorded Not on file COVID-19 Exposure Response Date Recorded In the last 10 days, have you been in contact with No / Unsu re 01/05/2022 1:15 PM CDT someone who was confirmed or suspected to have Coronavirus/COVID-19? Obstetrics History Last Filed Vital Signs Vital Sign Reading Time Taken Comments Blood Pressure 110/66 01/05/2022 1:34 PM CDT Pulse 67 01/05/2022 1:34 PM CDT Temperature 36.3 ??C (97.3 ??F) 01/05/2022 1:34 PM CDT Respiratory Rate 18 01/05/2022 1:34 PM CDT Oxygen Saturation 96% 01/05/2022 1:34 PM CDT Inhaled Oxygen Concentration - - Weight 77.2 kg (170 lb 3.2 oz) 01/05/2022 1:34 PM CDT Height 163.8 cm (5' 4.5) 01/05/2022 1:34 PM CDT Body Mass Index 28.76 01/05/2022 1:34 PM CDT Plan of Treatment Health Maintenance Due Date Last Done Comments Pneumococcal series for age 19-64 1966 (1 - PCV) Zoster (shingles) series for age 1204/14/1979 50+ (1 of 2) COVID-19 vaccine series (4 - 06/08/2021 04/13/2021, 021, Booster for Pfizer series) 09/03/2020 Influenza for age 50-64 12/24/2021 02/12/2021, 01/27/2020, 02/26/2019, Additional history exists Lipids for age 45-75 10/05/2022 10/05/2017, 06/01/2012, 09/23/2009 (Postponed), Additional history exists Depression screening for age 12+ 12/13/2022 12/13/2021, , 11/11/2020, Additional history exists BMI (ht and wt on same day) for 01/05/2023 01/05/2022, 07/24, age 18+ 03/05/2021, Additional history exists Colonoscopy through age 75 02/24/2028 02/23/2018, 3 Tetanus booster 03/05/2031 03/05/2021, 12/09/2008 Hepatitis C screening for age Completed 05/17/2013, 2013, 18-79 05/17/2013, Additional history exists Tdap Completed 03/05/2021, 12/09/2008 Medical Devices Implanted Type Area Compressed Gas Equipment Mechanic Device Shelf Model / Identifier Expiration Serial / Date Lot Mesh Inguinal 1.8x4in Marlex Preshaped W/Opening - [id number] Ge neral Left: [employer] 12/21/2023 [id number] / Implanted: Qty: 1 on 03/10/2021 by Jonny Cerna MD at [facility] Abdomen / Implants [id number] Implant On The Fly - [id number] Left: Knee DEPUY 01/22/2019 [id number] / Implanted: Qty: 1 on 07/08/2010 at [facility] / [id number] Description: FEMORAL UNI COMPONENET SZ 4 LM/RL Insert Knee Rt Sz3 [place] Unicondylar Uhmwpe - [id number] Right: Knee [employer] 12/28/2019 [id number] / Implanted: Qty: 1 on 07/04/2015 by Wayne Humphries MD at [facility] / [id number] Description: Implanted Right Medial Procedures Procedure Name Priority Date/Time Associated Comments Diagnosis SCAN-OPERATIVE/PROCEDU 01/19/2022 12:00 R esults for this RE REPORT AM CDT procedure are i n the results section. BASIC METABOLIC PANEL Routine 01/05/2022 2:06 PM Pre-op exam Results for this CDT procedure are i n the results section. CBC W PLT NO DIFF Routine 01/05/2022 2:06 PM Pre-op exam Resu lts for this CDT procedure are i n the results section. SEDIMENTATION RATE Routine 01/05/2022 2:06 PM Pericarditis, Re sults for this CDT unspecified procedure are i n chronicity, the results unspecified type section. C-REACTIVE PROTEIN Routine 01/05/2022 2:06 PM Pericarditis, Re sults for this CDT unspecified procedure are i n chronicity, the results unspecified type section. COVID 19 Routine 01/05/2022 1:35 PM Pre-op exam Results f or this CDT procedure are i n the results section. COVID 19 COLLECTION Routine 01/05/2022 1:35 PM Pre-op exam Re sults for this CDT procedure are i n the results section. EKG 12 LEAD Routine 01/05/2022 Pre-op exam SCAN-OPERATIVE/PROCEDU 12/24/2021 12:00 R esults for this RE REPORT AM CDT procedure are i n the results section. HEPATIC FUNCTION PANEL Routine 12/09/2021 3:39 PM PAF (paroxys mal Results for this CDT atrial procedure are i n fibrillation) (H C) the results Pericarditis, section. unspecified chronicity, unspecified type SEDIMENTATION RATE Routine 12/09/2021 3:39 PM Pericarditis, Re sults for this CDT unspecified procedure are i n chronicity, the results unspecified type section. C-REACTIVE PROTEIN Routine 12/09/2021 3:39 PM Pericarditis, Re sults for this CDT unspecified procedure are i n chronicity, the results unspecified type section. BASIC METABOLIC PANEL Routine 12/09/2021 3:39 PM Pericarditis, Results for this CDT unspecified procedure are i n chronicity, the results unspecified type section. ECHO LIMITED WO STAT 12/01/2021 11:37 Pericardial Results for this CONTRAST AM CDT effusion procedure are i n the results section. US VENOUS LOWER Routine 11/19/2021 2:37 PM Result s for this EXTREMITY RIGHT CDT procedure ar e in the results section. SCAN-CARDIAC STRIP 11/19/2021 8:06 AM CDT BASIC METABOLIC PANEL Early AM 11/19/2021 6:06 AM Results for this CDT procedure are i n the results section. EKG 12 LEAD STAT 11/19/2021 2:52 AM Results f or this CDT procedure are i n the results section. SCAN-CARDIAC STRIP 11/19/2021 2:37 AM CDT SCAN-CARDIAC STRIP 11/18/2021 11:51 PM CDT SCAN-CARDIAC STRIP 11/18/2021 11:19 PM CDT SCAN-CARDIAC STRIP 11/18/2021 10:26 PM CDT SCAN-CARDIAC STRIP 11/18/2021 9:11 PM CDT BASIC METABOLIC PANEL Early AM 11/18/2021 5:43 AM Results for this CDT procedure are i n the results section. SCAN-CARDIAC STRIP 11/17/2021 6:38 PM CDT EKG 12 LEAD CESAR 11/17/2021 5:14 PM Results f or this CDT procedure are i n the results section. SEDIMENTATION RATE Today 11/17/2021 4:31 PM Res ults for this CDT procedure are i n the results section. ECHO COMPLETE W STAT 11/17/2021 11:58 Results for this CONTRAST AM CDT procedure are i n the results section. C-REACTIVE PROTEIN Timed 11/17/2021 11:00 Resul ts for this AM CDT procedure are i n the results section. TSH CESRA 11/17/2021 11:00 Results for this AM CDT procedure are i n the results section. MAGNESIUM Today 11/17/2021 11:00 Results for this AM CDT procedure are i n the results section. TROPONIN I STAT 11/17/2021 11:00 Results for this AM CDT procedure are i n the results section. EKG 12 LEAD STAT 11/17/2021 10:33 Results for this AM CDT procedure are i n the results section. COVID 19 Timed 11/17/2021 4:34 AM Results f or this CDT procedure are i n the results section. COVID 19 COLLECTION Today 11/17/2021 4:34 AM Re sults for this CDT procedure are i n the results section. CT CHEST W STAT 11/17/2021 3:22 AM Results f or this CDT procedure are i n the results section. PROCALCITONIN CESAR 11/17/2021 1:45 AM Results for this CDT procedure are i n the results section. NUCLEATED RED BLOOD STAT 11/17/2021 1:45 AM Re sults for this CELLS PERCENT OF CDT procedur e are in BLOOD LEUKOCYTES the results section. POTASSIUM STAT 11/17/2021 1:45 AM Results f or this CDT procedure are i n the results section. CBC W PLT NO DIFF STAT 11/17/2021 1:45 AM Resu lts for this CDT procedure are i n the results section. XR CHEST 2 VIEWS PA STAT 11/17/2021 1:16 AM Re sults for this AND LATERAL CDT procedure are i n the results section. PROTIME-INR STAT 11/17/2021 12:56 Results for this AM CDT procedure are i n the results section. TROPONIN I STAT 11/17/2021 12:56 Results for this AM CDT procedure are i n the results section. BASIC METABOLIC PANEL STAT 11/17/2021 12:56 Re sults for this AM CDT procedure are i n the results section. EKG 12 LEAD STAT 11/17/2021 12:15 Results for this AM CDT procedure are i n the results section. from Last 3 Months Results SCAN-OPERATIVE/PROCEDURE REPORT (01/19/2022 12:00 AM CDT) Narrative This result has an attachment that is no t available. Scanner OTHER (ABNORMAL) SEDIMENTATION RATE (01/05/2022 2:06 PM CDT)Only the most recent of3 resultswithin the time period is included. [facility] gist Method Time Signature SEDIMENTATION RATE 37 (H) <20 mm/hr 01/05/2022 [facility] 7:16 PM CDT [facility] TRAL LABORATORY Specimen Anatomical Collection Method / Collection Time Recei ry Time (Source) Location / Volume Laterality Blood BLOOD SPECIMEN / Venipuncture / 01/05/2022 2:06 2021 2:06 Unknown Unknown PM CDT PM CDT Kaley Ruiz MD HEMATOLOGY Performing Organization Address City/State/ZIP Code Phon e Number [facility] [employer] [address] [place], [place] [address] [place] [address] LABORATORY-CENTRAL 2000 LABORATORY (ABNORMAL) CBC W PLT NO DIFF (01/05/2022 2:06 PM CDT)Only the most recent of2 resultswithin the time period is included. Analysis Performed At [facility] logist Time Signature WHITE BLOOD 10.5 4.5 - 11.0 01/05/2022 [facility] [employer] COUNT thou/cu mm 2:46 PM CDT [facility] RED BLOOD COUNT 3.86 (L) 4.30 - 01/05/2022 [facility] 5.90 2:46 PM CDT [facility] HEMOGLOBIN 11.5 (L) 13.5 - 01/05/2022 [facility] 17.5 g/dL 2:46 PM CDT [facility] HEMATOCRIT 35.9 (L) 37.0 - 01/05/2022 [facility] 53.0 % 2:46 PM CDT [facility] MCV 93 80 - 100 01/05/2022 [facility] fL 2:46 PM CDT [facility] MCH 29.8 26.0 - 01/05/2022 [facility] 34.0 pg 2:46 PM CDT [facility] MCHC 32.0 32.0 - 01/05/2022 [facility] 36.0 g/dL 2:46 PM CDT [facility] RDW 15.9 (H) 11.5 - 01/05/2022 [facility] 15.5 % 2:46 PM CDT [facility] PLATELET COUNT 447 (H) 140 - 440 01/05/2022 [facility] thou/cu mm 2:46 PM CDT [facility] MPV 9.1 6.5 - 11.0 01/05/2022 [facility] fL 2:46 PM CDT [facility] Specimen Anatomical Collection Method / Collection Time Recei ry Time (Source) Location / Volume Laterality Blood BLOOD SPECIMEN / Venipuncture / 01/05/2022 2:06 2021 2:06 Unknown Unknown PM CDT PM CDT Klaey Ruiz MD HEMATOLOGY Performing Organization Address City/State/ZIP Code Phon e Number [facility] [address] [place], [place] [phone] [facility] [address] (ABNORMAL) C-REACTIVE PROTEIN (01/05/2022 2:06 PM CDT)Only the most recent of3 resultswithin the time period is included. Analysis Performed At Patho logist Time Signature C-REACTIVE 1.75 (H) <0.50 01/06/2022 [facility] PROTEIN mg/dL 3:52 AM CDT [facility] TRAL LABORATORY Specimen Anatomical Collection Method / Collection Time Recei ry Time (Source) Location / Volume Laterality Blood BLOOD SPECIMEN / Venipuncture / 01/05/2022 2:06 2021 2:06 Unknown Unknown PM CDT PM CDT Kaley Ruiz MD CHEMISTRY Performing Organization Address City/State/ZIP Code Phon e Number [facility] [employer] [address] [place] [address] LABORATORY-CENTRAL 2000 LABORATORY (ABNORMAL) BASIC METABOLIC PANEL (01/05/2022 2:06 PM CDT)Only the most recent of 5 resultswithin the time period is included. Analysis Performed At [facility] Time Signature SODIUM 142 135 - 145 01/06/2022 [facility] mmol/L 3:53 AM CDT [facility] TRAL LABORATORY POTASSIUM 4.3 3.5 - 5.0 01/06/2022 [facility] mmol/L 3:53 AM CDT [facility] TRAL LABORATORY CHLORIDE 109 98 - 110 01/06/2022 [facility] mmol/L 3:53 AM CDT [facility] TR[facility] LAB[facility] CO2,TOTAL 23 21 - 31 01/06/2022 [facility] mmol/L 3:53 AM CDT [facility] LAB[facility] ANION GAP 10 5 - 18 01/06/2022 [facility] 3:53 AM CDT [facility] TR[facility] LAB[facility]ATORY GLUCOSE 109 (H) 65 - 100 01/06/2022 [facility] [employer] mg/dL 3:53 AM CDT [facility] TR[facility] LABORATORY CALCIUM 9.6 8.5 - 10.5 01/06/2022 [facility] mg/dL 3:53 AM CDT [facility] TR[facility] LAB[facility] BUN 25 8 - 25 01/06/2022 [facility] [employer] mg/dL 3:53 AM CDT [facility] TR[facility] LAB[facility]ORY CREATININE 1.14 0.72 - 01/06/2022 [facility] [employer] 1.25 mg/dL 3:53 AM CDT [facility] LAB[facility] BUN/CREAT RATIO 22 (H) 10 - 20 01/06/2022 [facility] 3:53 AM CDT [facility] LAB[facility] eGFR 73 (L) >90 01/06/2022 [facility] [employer] mL/min/1.7 3:53 AM CDT [facility] 3m2 TRAL LABORATORY Comment: As of 2021, eGFR is calcu lated by the CKD-EPI creatinine equation without race adjustment. eGFR can be inf luenced by muscle mass, exercise, and diet. The reported eGFR is an estimation only and is only applicable if the renal function is stable. Specimen Anatomical Collection Method / Collection Time Recei ry Time (Source) Location / Volume Laterality Blood BLOOD SPECIMEN / Venipuncture / 01/05/2022 2:06 2021 2:06 Unknown Unknown PM CDT PM CDT Kaley Ruiz MD CHEMISTRY Performing Organization Address City/[facility] Phon e Number [facility] [address] [place] [address] LABORATORY-CENTRAL 1999 LABORATORY COVID 19 (01/05/2022 1:35 PM CDT) Analysis Performed At Patho logist Time Signature COVID 19 Negative Negative 01/06/2022 [facility] 7:55 PM CDT [facility] MOLECULAR TRAL LABORATORY Specimen Anatomical Location / Collection Method Collection Nikita e Received Time (Source) Laterality / Volume Other SPECIMEN FROM Non-Blood / 01/05/2022 1:35 01/05/2022 9:15 NASOPHARYNGEAL Unknown PM CDT PM CDT STRUCTURE / Unknown Narrative [facility] LABORATORY-CENTRAL LABORAT ORY - 01/06/2022 7:55 PM CDT All PCR tests are subject to false negative result due to variability in viral load and collection te chnique. A negative result does not rule out a SARS-CoV-2 infection. Clinical correlation required. This test has been authorized by FDA und er an Emergency Use Authorization (EUA). This test is only authorized for the duration of time the declaration that circumstances exist justifying the authorizati on of the emergency use of in vitro diag nostic tests for detection of SARS-CoV-2 virus and/or diagnosis of COVID-19 infection under section 564(b)(1) of the Act, 21 U.S.C. 360bbb-3(b) (1), unless the authorization is terminated or revoked sooner. Kaley Ruiz MD MICROBIOLOGY Performing Organization Address City/[facility] Phon e Number [facility] [address] [place] [address] LABORATORY-CENTRAL 1999 LABORATORY COVID 19 COLLECTION (01/05/2022 1:35 PM CDT)Only the most recent of2 results within the time period is included. Patholo gist Method Time Signature TESTING [facility] 01/05/2022 [facility] LABORATORY Laboratory 9:16 PM CDT LABORATORY-CE NTRAL LABORATORY Comment: Specimen submitted to [facility] for testing. Specimen Anatomical Location / Collection Method Collection Nikita e Received Time (Source) Laterality / Volume Other SPECIMEN FROM Non-Blood / 01/05/2022 1:35 01/05/2022 2:45 NASOPHARYNGEAL Unknown PM CDT PM CDT STRUCTURE / Unknown Kaley Ruiz MD SEND OUTS Performing Organization Address City/State/ZIP Code Phon e Number [facility] [address] [place] [address] LABORATORY-CENTRAL 2000 LABORATORY EKG 12 LEAD (01/05/2022)Only the most recent of5 resultswithin the time period is included. Narrative This result has an attachment that is no t available. Kaley Ruiz MD EKG ORD SCAN-OPERATIVE/PROCEDURE REPORT (12/24/2021 12:00 AM CDT) Narrative This result has an attachment that is no t available. Scanner OTHER (ABNORMAL) HEPATIC FUNCTION PANEL (12/09/2021 3:39 PM CDT) [facility] Method Time Signature ALBUMIN 3.3 3.2 - 4.6 12/09/2021 [facility] g/dL 4:14 PM [facility] PROTEIN,TOTAL 5.9 (L) 6.0 - 8.0 12/09/2021 [facility] g/dL 4:14 PM [facility] LAB[facility] GLOBULIN 2.6 2.0 - 3.7 12/09/2021 [facility] g/dL 4:14 PM [facility] LABORAT[facility] A/G RATIO 1.3 1.0 - 2.0 12/09/2021 [facility] 4:[address] [facility] LAB[facility] BILIRUBIN,TOTAL 0.3 0.2 - 1.2 12/09/2021 [facility] mg/dL 4:[address] [facility] LABOR[facility]ORY BILIRUBIN,DIRECT 0.2 0.1 - 0.5 12/09/2021 [facility] mg/dL 4:14 PM [facility] LAB[facility]ORY BILIRUBIN,INDIRE 0.1 (L) 0.2 - 0.8 12/09/[address] mg/dL 4:[address] [facility] LABORATORY ALK PHOSPHATASE 129 50 - 136 12/09/2021 [facility] IU/L 4:14 PM CDT HOSPITAL LABORATORY ALT (SGPT) 24 8 - 45 12/09/2021 [facility] IU/L 4:14 PM CDT [facility]OSPITAL LAB[facility] AST (SGOT) 20 2 - 40 12/09/2021 [facility] IU/L 4:14 PM CDT HOSPITAL LABORATORY Specimen Anatomical Collection Method / Collection Time Recei ry Time (Source) Location / Volume Laterality Blood BLOOD SPECIMEN / Venipuncture / 12/09/2021 3:39 2021 3:40 Unknown Unknown PM CDT PM CDT Cathy JIM CHEMISTRY Performing Organization Address City/State/ZIP Code Phon e Number [facility] SENDOUT INTERNAL ZIP [place] [address] [phone] [facility] ECHO LIMITED WO CONTRAST (12/01/2021 11:37 AM CDT) P athologist Signature EJECTION 60% PROSOLV FRACTION Anatomical Region Laterality Modality HEART Ultrasound Specimen (Source) Anatomical Collection Method Collection Time Re ceived Time Location / / Volume Laterality 12/01/2021 10:48 AM CDT Narrative 12/01/2021 1:11 PM CDT [facility] [address], [place] [address] Main: ? Transthoracic Echo Report ALEJANDRINACASH ID: [id number] Age: 61 : 1 06/15/1959 Ordering Provider: HAKEEM CUNNINGHAM Exam Date: 12/01/2021 10:48 Gender: M S onographer: ESCOBAR Height: 65 in BS A: 1.88 m?? BP: 146 / 83 Weight: 178 lbs BMI: 29.6 kg/m?? HR: 77 Location: [facility] Rhythm: Normal Sinus Rhythm Procedure Components: Limited 2D imagin g, Color Doppler, Limited Spectral Doppler Indications: Pericardial effusion Technical Quality: Adequate Contrast: N one Final Conclusion Previous Study: 2021 1. Tiny, hemodynamically insignificant pericardial effusion. 2. Normal left ventricular systolic fun ction. Calculated left ventricular ejection fraction (modified Mooney technique) is 60 %. 3. No regional wall motion abnormalitie s. 4. Normal right ventricular chamber siz e. Normal right ventricular systolic function. When compared to the previous echocardi ographic images of 11/17/2021, there has been no significant change. Estimated EF: 60% FINDINGS Left Ventricle Normal left ventricular chamber size. Basal ventricular septal thickening. Normal left ventricular systolic functio n. Calculated left ventricular ejection fr action (modified Mooney technique) is 60 %. No regional wall motion abnormalities. Diastolic Function Indeterminate left v entricular diastolic function. Right Ventricle Normal right ventricula r chamber size. Normal right ventricular systolic function. Right ventricular systolic pressure cannot be estimated due to mel bility to detect peak tricuspid regurgitation Doppler velocity. Left Atrium Left atrium was not assesse d. Right Atrium Right atrium was not asses sed. Atrial Septum Atrial septum was not ass essed. Aortic Valve Aortic valve was not asses sed. Mitral Valve Mitral valve was not asses sed. Tricuspid Valve Normal tricuspid valve. Trivial tricuspid valve regurgitation. Pulmonic Valve Pulmonary valve was not assessed. Pericardium Tiny, hemodynamically insig nificant pericardial effusion. Aorta Aortic sinus of Valsalva was not well visualized. Ascending aorta was not well visualized. Inferior Vena Cava Normal inferior vena cava with normal inspiratory collapse. MEASUREMENTS ??(Male / Female) Normal V alues 2D MEASUREMENTS AND LV FUNCTION IVS Diastolic Thickness ? 1.25 cm ? < 1.1 cm / < 1.0 cm LV Diastolic Diameter PLAX ?4 .58 cm ? 4.2 - 5.9 / 3.9 - 5.3 cm LV Diastolic Diameter Index ? 2. 43 cm/m?? LVPW Diastolic Thickness ? 0.848 cm ?< 1.1 cm / < 1.0 cm LV Systolic Diameter PLAX ? 3 .08 cm LV Systolic Diameter Index ?1 .64 cm/m?? LVOT Diameter ? 2.3 cm LVOT Cardiac Output ? 7.45 l/min LVOT Cardiac Index ?3.83 l/min??m?? LVOT Stroke Volume ?96.8 ml Stroke Volume Index ? 49.7 ml/m?? LV Ejection Fraction MOD BP ? 59 .8 % ?>= 55 ??% LV Mass ? 168 g LV Mass Index ? 87.5 g/m?? DIASTOLOGY Mitral E Point Velocity ? 0.511 m/sec ? 0.70 - 1.02 m/sec Mitral A Point Velocity ? 0.771 m/sec ? 0.06 - 1.06 m/sec Mitral E to A Ratio ? 0.663 ? 1.1 - 2.1 MV Deceleration Time ?243 msec ?167 - 231 msec LV E' Lateral Velocity ?0.0903 m/sec Mitral E to LV E' Lateral Ratio ?? 5.66 LV E' Septal Velocity ? 0.0435 m/sec Mitral E to LV E' Septal Ratio ?11. 7 AORTIC VALVE LVOT Peak Velocity ?1.28 m/sec LVOT Velocity Time Integral ? 23 .3 cm MITRAL VALVE MV Pressure Half Time ? 71 msec MV Area PHT ? 3.1 cm?? TRICUSPID VALVE AND ESTIMATED PRESSURES Right Atrial Pressure ? 3 mmHg HCM DATA LVOT CASSIUS (r) ?6.55 mmHg Earnest Del Real MD (Electronically Signed) [facility] d Site Final Date: 01 December 2021 13:11 ICD-10 Codes: I31.3 Procedure Note Earnest Del Real MD - 12/01/2021Form atting of this note might be different from the original. [facility] [address], [place] [address] Main: Transthoracic Echo Report CASH TINOCO Excellian ID: [id number] Age: 61 : 1 06/15/1959 Ordering Provider: HAKEEM CUNNINGHAM Exam Date: 12/01/2021 10:48 Gender: M S onographer: ESCOBAR Height: 65 in BS A: 1.88 m?? BP: 146 / 83 Weight: 178 lbs BMI: 29.6 kg/m?? HR: 77 Location: [facility] Rhythm: Normal Sinus Rhythm Procedure Components: Limited 2D imagin g, Color Doppler, Limited Spectral Doppler Indications: Pericardial effusion Technical Quality: Adequate Contrast: N one Final Conclusion Previous Study: 2021 1. Tiny, hemodynamically insignificant pericardial effusion. 2. Normal left ventricular systolic fun ction. Calculated left ventricular ejection fraction (modified Mooney technique) is 60 %. 3. No regional wall motion abnormalitie s. 4. Normal right ventricular chamber siz e. Normal right ventricular systolic function. When compared to the previous echocardi ographic images of 11/17/2021, there has been no significant change. Estimated EF: 60% FINDINGS Left Ventricle Normal left ventricular chamber size. Basal ventricular septal thickening. Normal left ventricular systolic function. Calculated left ventricular ejection fr action (modified Mooney technique) is 60 %. No regional wall motion abnormalities. Diastolic Function Indeterminate left v entricular diastolic function. Right Ventricle Normal right ventricula r chamber size. Normal right ventricular systolic function. Right ventricular systolic pressure cannot be estimated due to mel bility to detect peak tricuspid regurgitation Doppler velocity. Left Atrium Left atrium was not assesse d. Right Atrium Right atrium was not asses sed. Atrial Septum Atrial septum was not ass essed. Aortic Valve Aortic valve was not asses sed. Mitral Valve Mitral valve was not asses sed. Tricuspid Valve Normal tricuspid valve. Trivial tricuspid valve regurgitation. Pulmonic Valve Pulmonary valve was not assessed. Pericardium Tiny, hemodynamically insig nificant pericardial effusion. Aorta Aortic sinus of Valsalva was not well visualized. Ascending aorta was not well visualized. Inferior Vena Cava Normal inferior vena cava with normal inspiratory collapse. MEASUREMENTS (Male / Female) Normal Brianna ues 2D MEASUREMENTS AND LV FUNCTION IVS Diastolic Thickness 1.25 cm < 1.1 c m / < 1.0 cm LV Diastolic Diameter PLAX 4.58 cm 4.2 - 5.9 / 3.9 - 5.3 cm LV Diastolic Diameter Index 2.43 cm/m?? LVPW Diastolic Thickness 0.848 cm < 1.1 cm / < 1.0 cm LV Systolic Diameter PLAX 3.08 cm LV Systolic Diameter Index 1.64 cm/m?? LVOT Diameter 2.3 cm LVOT Cardiac Output 7.45 l/min LVOT Cardiac Index 3.83 l/min??m?? LVOT Stroke Volume 96.8 ml Stroke Volume Index 49.7 ml/m?? LV Ejection Fraction MOD BP 59.8 % >= 5 5 % LV Mass 168 g LV Mass Index 87.5 g/m?? DIASTOLOGY Mitral E Point Velocity 0.511 m/sec 0.7 0 - 1.02 m/sec Mitral A Point Velocity 0.771 m/sec 0.0 6 - 1.06 m/sec Mitral E to A Ratio 0.663 1.1 - 2.1 MV Deceleration Time 243 msec 167 - 231 msec LV E' Lateral Velocity 0.0903 m/sec Mitral E to LV E' Lateral Ratio 5.66 LV E' Septal Velocity 0.0435 m/sec Mitral E to LV E' Septal Ratio 11.7 AORTIC VALVE LVOT Peak Velocity 1.28 m/sec LVOT Velocity Time Integral 23.3 cm MITRAL VALVE MV Pressure Half Time 71 msec MV Area PHT 3.1 cm?? TRICUSPID VALVE AND ESTIMATED PRESSURES Right Atrial Pressure 3 mmHg HCM DATA LVOT CASSIUS (r) 6.55 mmHg Earnest Del Real MD (Electronically Signed) [facility] d Site Final Date: 01 December 2021 13:11 ICD-10 Codes: I31.3 Hakeem Cunningham [facility] ECHO ORD US VENOUS LOWER EXTREMITY RIGHT (11/19/2021 2:37 PM CDT) Anatomical Region Laterality Modality LEGS, LEG R, Abdomen Ultrasound Specimen (Source) Anatomical Collection Method Collection Time Re ceived Time Location / / Volume Laterality 11/19/2021 2:37 PM CDT Impressions 11/19/2021 2:53 PM CDT 1. ??No deep venous thrombosis in the ri ght lower extremity. Narrative 11/19/2021 2:53 PM CDT For Patients: As a result of the Cures Act, medical imaging exams and procedure reports are released immediately into your [facility] medical record. You may view this report before your referring provider. If you have questions, please contact your health care provider. EXAM: US VENOUS LOWER EXTREMITY RIGHT LOCATION: [facility] DATE/TIME: 11/19/2021 2:37 PM INDICATION: Lower extremity swelling and pain COMPARISON: None. TECHNIQUE: Venous Duplex ultrasound of t he right lower extremity with and without compression, augmentation and duplex. Color flow and spectral Doppler with waveform analysis performed. FINDINGS: Exam includes the common femor al, femoral, popliteal, and contralateral common femoral veins as well as segmentally visualized deep calf veins and greater saphenous vein. RIGHT: No deep vein thrombosis. No super ficial thrombophlebitis. No popliteal cyst. Procedure Note Catina Oglesby MD - 11/19/2021Form atting of this note might be different from the original. For Patients: As a result of the Cures Act, medical imaging exams and procedure reports are released immediately into your electronic medical record. You may view this report before your referring provider. If you have questions, please contact [facility] health care provider. EXAM: US VENOUS LOWER EXTREMITY RIGHT LOCATION: [facility] MEDICAL IMAGING DATE/TIME: 11/19/2021 2:37 PM INDICATION: Lower extremity swelling and pain COMPARISON: None. TECHNIQUE: Venous Duplex ultrasound of t he right lower extremity with and without compression, augmentation and duplex. Color flow and spectral Doppler with waveform analysis performed. FINDINGS: Exam includes the common femor al, femoral, popliteal, and contralateral common femoral veins as well as segmentally visualized deep calf veins and greater saphenous vein. RIGHT: No deep vein thrombosis. No super ficial thrombophlebitis. No popliteal cyst. IMPRESSION: 1. No deep venous thrombosis in the [facility] t lower extremity. Anca Angelique Li MD US SCAN-CARDIAC STRIP (11/19/2021 8:06 AM CDT) Narrative This result has an attachment that is no t available. Scanner OTHER SCAN-CARDIAC STRIP (11/19/2021 2:37 AM CDT) Narrative This result has an attachment that is no t available. Scanner OTHER SCAN-CARDIAC STRIP (11/18/2021 11:51 PM CDT) Narrative This result has an attachment that is no t available. Scanner OTHER SCAN-CARDIAC STRIP (11/18/2021 11:19 PM CDT) Narrative This result has an attachment that is no t available. Scanner OTHER SCAN-CARDIAC STRIP (11/18/2021 10:26 PM CDT) Narrative This result has an attachment that is no t available. Scanner OTHER SCAN-CARDIAC STRIP (11/18/2021 9:11 PM CDT) Narrative This result has an attachment that is no t available. Scanner OTHER SCAN-CARDIAC STRIP (11/17/2021 6:38 PM CDT) Narrative This result has an attachment that is no t available. Scanner OTHER ECHO COMPLETE W CONTRAST (11/17/2021 11:58 AM CDT) P athologist Signature EJECTION 55% PROSOLV FRACTION Anatomical Region Laterality Modality HEART Ultrasound Specimen (Source) Anatomical Collection Method Collection Time Re ceived Time Location / / Volume Laterality 11/17/2021 10:56 AM CDT Narrative 11/17/2021 12:[place] [address] Main: [email or web address] ? Transthoracic Echo Report CASH TINOCO Krishna ID: [id number] Age: 61 : 1 06/15/1959 Ordering Provider: JAMES COLON Exam Date: 11/17/2021 10:56 Gender: M S onographer: [facility] Height: 66 in BS A: 1.89 m?? BP: 119 / 72 Weight: 175 lbs BMI: 28.2 kg/m?? HR: 10 8 Location: Inpatient (Portable) Rhythm: Atrial Fibrillation Procedure Components: 2D imaging with c ontrast, Color Doppler, Spectral Doppler Indications: Chest pain, unspecified Technical Quality: Fair Contrast: Defin ity Constrast Dose (ml): 0.30 Final Conclusion 1. Normal left ventricular systolic fun ction. Estimated left ventricular ejection fraction is 55%. 2. No regional wall motion abnormalitie s. 3. Mild ventricular septal thickening ( 1.2 cm). 4. Normal right ventricular chamber siz e. Mildly decreased right ventricular systolic function. 5. No significant valvular heart diseas e. 6. Small pericardial effusion, without evidence of hemodynamic effect. There were no prior studies available f or comparison. Estimated EF: 55% FINDINGS Left Ventricle Normal left ventricular chamber size. Mild ventricular septal thickening (1.2 cm). Normal left ventricular systolic function. Estimated left ventricular ej ection fraction is 55%. No regional wall motion abnormalities. Diastolic Function Indeterminate left v entricular diastolic function. Right Ventricle Normal right ventricula r chamber size. Mildly decreased right ventricular systolic function. Estimated right ventricular systolic pressure is 29 mmH g. Left Atrium Mild left atrial enlargemen t. Left atrial volume index is 38 ml/m??. Right Atrium Normal right atrial size. Atrial Septum Hypermobile atrial septum . No evidence of inter-atrial shunt by color flow Doppler. Aortic Valve Trileaflet aortic valve. N o aortic valve stenosis. No aortic valve regurgitation. Mitral Valve Normal mitral valve. No mi tral valve stenosis. Trivial mitral valve regurgitation. Tricuspid Valve Normal tricuspid valve. Mild tricuspid valve regurgitation. Pulmonic Valve Normal pulmonary valve. No pulmonary valve stenosis. Trivial pulmonary valve regurgitation. Pericardium Small pericardial effusion, without evidence of hemodynamic effect. Aorta Aortic sinus of Valsalva is katlyn l in size (3.5 cm, ZScore = -0.29). Normal indexed ascending aorta dimension (3.6 cm, 1.9 cm/m??). Inferior Vena Cava Dilated inferior massiel a cava with normal collapse. MEASUREMENTS ??(Male / Female) Normal V alues 2D MEASUREMENTS AND LV FUNCTION IVS Diastolic Thickness ? 1.2 cm ?< 1.1 cm / < 1.0 cm LV Diastolic Diameter PLAX ?4 .6 cm ?4.2 - 5.9 / 3.9 - 5.3 cm LV Diastolic Diameter Index ? 2. 43 cm/m?? LVPW Diastolic Thickness ? 0.9 cm ?< 1.1 cm / < 1.0 cm LV Systolic Diameter PLAX ? 3 .1 cm LV Systolic Diameter Index ?1 .64 cm/m?? LVOT Diameter ? 2.3 cm LVOT Cardiac Output ? 8.09 l/min LVOT Cardiac Index ?4.16 l/min??m?? LVOT Stroke Volume ?74.9 ml Stroke Volume Index ? 38.5 ml/m?? LA Volume MOD BP ?70.9 ml LA Volume Index MOD BP ?37.5 ml/m?16 - 34 ml/m?? RV Diastolic Basal Diameter ? 3. 8 cm RV Diastolic Mid Diameter ? 2 .9 cm LV Mass ? 170 g LV Mass Index ? 88.3 g/m?? Sinuses of Valsalva Diameter(d) ?? 3.5 cm Ascending Aorta Diameter(s) ? 3. 6 cm IVC Diameter Expiration ? 2.3 cm Ascending Aorta Index ? 1.9 cm/m?? M MODE TAPSE MM ?1.41 cm AORTIC VALVE AV Peak Velocity ?1.23 m/sec ?< 2.0 m/sec AV Peak Gradient ?6.05 mmHg AV Mean Gradient ?3.67 mmHg AV Velocity Time Integral ? 1 9.9 cm LVOT Peak Velocity ?1.12 m/sec LVOT Velocity Time Integral ? 18 cm AV Area Cont Eq vti ? 3.76 cm?? AV Area Cont Eq pk ?3.8 cm?? AV Dimensionless Index ?0.904 TRICUSPID VALVE AND ESTIMATED PRESSURES TR Peak Velocity ?2.31 m/sec TR Peak Gradient ?21.3 mmHg Right Atrial Pressure ? 8 mmHg Right Ventricular Systolic Press ??29.3 mmHg HCM DATA LVOT CASSIUS (r) ?5.06 mmHg Aortic Root ZScore: -0.29 Earnest Del Real MD [facility] Accredited Site (Electronically Signed) Final Date: 17 November 2021 12:25 ICD-10 Codes: R07.9 Procedure Note Earnest Del Real MD - 11/17/2021Form atting of this note might be different [place] [address] Main: [email or web address] Transthoracic Echo Report CASH TINOCO Krishna ID: [id number] Age: 61 : 1 06/15/1959 Ordering Provider: JAMES COLON Exam Date: 11/17/2021 10:56 Gender: M S onographer: [facility] Height: 66 in BS A: 1.89 m?? BP: 119 / 72 Weight: 175 lbs BMI: 28.2 kg/m?? HR: 10 8 Location: Inpatient (Portable) Rhythm: Atrial Fibrillation Procedure Components: 2D imaging with c ontrast, Color Doppler, Spectral Doppler Indications: Chest pain, unspecified Technical Quality: Fair Contrast: Defin ity Constrast Dose (ml): 0.30 Final Conclusion 1. Normal left ventricular systolic fun ction. Estimated left ventricular ejection fraction is 55%. 2. No regional wall motion abnormalitie s. 3. Mild ventricular septal thickening ( 1.2 cm). 4. Normal right ventricular chamber siz e. Mildly decreased right ventricular systolic function. 5. No significant valvular heart diseas e. 6. Small pericardial effusion, without evidence of hemodynamic effect. There were no prior studies available f or comparison. Estimated EF: 55% FINDINGS Left Ventricle Normal left ventricular chamber size. Mild ventricular septal thickening (1.2 cm). Normal left ventricular systolic function. Estimated left ventricular ej ection fraction is 55%. No regional wall motion abnormalities. Diastolic Function Indeterminate left v entricular diastolic function. Right Ventricle Normal right ventricula r chamber size. Mildly decreased right ventricular systolic function. Estimated right ventricular systolic pressure is 29 mmH g. Left Atrium Mild left atrial enlargemen t. Left atrial volume index is 38 ml/m??. Right Atrium Normal right atrial size. Atrial Septum Hypermobile atrial septum . No evidence of inter-atrial shunt by color flow Doppler. Aortic Valve Trileaflet aortic valve. N o aortic valve stenosis. No aortic valve regurgitation. Mitral Valve Normal mitral valve. No mi tral valve stenosis. Trivial mitral valve regurgitation. Tricuspid Valve Normal tricuspid valve. Mild tricuspid valve regurgitation. Pulmonic Valve Normal pulmonary valve. No pulmonary valve stenosis. Trivial pulmonary valve regurgitation. Pericardium Small pericardial effusion, without evidence of hemodynamic effect. Aorta Aortic sinus of Valsalva is katlyn l in size (3.5 cm, ZScore = -0.29). Normal indexed ascending aorta dimension (3.6 cm, 1.9 cm/m??). Inferior Vena Cava Dilated inferior massiel a cava with normal collapse. MEASUREMENTS (Male / Female) Normal Brianna ues 2D MEASUREMENTS AND LV FUNCTION IVS Diastolic Thickness 1.2 cm < 1.1 cm / < 1.0 cm LV Diastolic Diameter PLAX 4.6 cm 4.2 - 5.9 / 3.9 - 5.3 cm LV Diastolic Diameter Index 2.43 cm/m?? LVPW Diastolic Thickness 0.9 cm < 1.1 c m / < 1.0 cm LV Systolic Diameter PLAX 3.1 cm LV Systolic Diameter Index 1.64 cm/m?? LVOT Diameter 2.3 cm LVOT Cardiac Output 8.09 l/min LVOT Cardiac Index 4.16 l/min??m?? LVOT Stroke Volume 74.9 ml Stroke Volume Index 38.5 ml/m?? LA Volume MOD BP 70.9 ml LA Volume Index MOD BP 37.5 ml/m?? 16 - 34 ml/m?? RV Diastolic Basal Diameter 3.8 cm RV Diastolic Mid Diameter 2.9 cm LV Mass 170 g LV Mass Index 88.3 g/m?? Sinuses of Valsalva Diameter(d) 3.5 cm Ascending Aorta Diameter(s) 3.6 cm IVC Diameter Expiration 2.3 cm Ascending Aorta Index 1.9 cm/m?? M MODE TAPSE MM 1.41 cm AORTIC VALVE AV Peak Velocity 1.23 m/sec < 2.0 m/sec AV Peak Gradient 6.05 mmHg AV Mean Gradient 3.67 mmHg AV Velocity Time Integral 19.9 cm LVOT Peak Velocity 1.12 m/sec LVOT Velocity Time Integral 18 cm AV Area Cont Eq vti 3.76 cm?? AV Area Cont Eq pk 3.8 cm?? AV Dimensionless Index 0.904 TRICUSPID VALVE AND ESTIMATED PRESSURES TR Peak Velocity 2.31 m/sec TR Peak Gradient 21.3 mmHg Right Atrial Pressure 8 mmHg Right Ventricular Systolic Press 29.3 m mHg HCM DATA LVOT CASSIUS (r) 5.06 mmHg Aortic Root ZScore: -0.29 Earnest Del Real MD [facility] Accredited Site (Electronically Signed) Final Date: 17 November 2021 12:25 ICD-10 Codes: R07.9 James Colon MD ECHO ORD TROPONIN I (11/17/2021 11:00 AM CDT)Only the most recent of2 resultswithin the time period is included. athologist Signature TROPONIN I <0.010 <0.034 11/17/2021 [facility] ng/mL 11:45 AM CDT LABORATORY Specimen Anatomical Collection Method / Collection Time Recei ry Time (Source) Location / Volume Laterality Blood BLOOD SPECIMEN / Non-Lab 11/17/2021 11:00 022 Unknown Venipuncture / AM CDT 11:05 AM CDT Unknown James Colon MD CHEMISTRY Performing Organization Address City/State/ZIP Code Phon e Number [facility] LABORATORY SENDOUT INTERNAL ZIP [place] [phone] [place] [address] TSH (11/17/2021 11:00 AM CDT) athologist Signature TSH 0.63 0.35 - 4.94 11/17/2021 [facility] uIU/mL 4:24 PM CDT LABORATORY Specimen Anatomical Collection Method / Collection Time Recei ry Time (Source) Location / Volume Laterality Blood BLOOD SPECIMEN / Non-Lab 11/17/2021 11:00 022 Unknown Venipuncture / AM CDT 11:05 AM CDT Unknown Narrative [facility] LABORATORY - 11/17/2021 4:24 PM CDT In Adults, TSH values between 5.00 and 10.00 uIU/ml do not necessarily indicate the presence of Hyp othyroidism. Correlation with clinical findings such as presence of goiter and/or Thyroperoxidase (TPO) Antibody ma y be helpful. For more information please refer to GISELA 20 ; 291: [phone]. Yared JIM CHEMISTRY Performing Organization Address [facility]/ZIP Code Phon e Number [facility] LABORATORY SENDOUT INTERNAL ZIP [place], [place] [phone] [place] [address] MAGNESIUM (11/17/2021 11:00 AM CDT) P athologist Signature MAGNESIUM 1.8 1.6 - 2.6 11/17/2021 [facility] mg/dL 5:01 PM CDT LABORATORY Specimen Anatomical Collection Method / Collection Time Recei ry Time (Source) Location / Volume Laterality Blood BLOOD SPECIMEN / Non-Lab 11/17/2021 11:00 022 Unknown Venipuncture / AM CDT 11:05 AM CDT Unknown Cyn JIM CHEMISTRY Performing Organization Address [facility] Phon e Number [facility] LABORATORY SENDOUT INTERNAL [place] [address] [phone] [place] [address] COVID 19 (11/17/2021 4:34 AM CDT) Analysis Performed At Patho logist Time Signature COVID 19 Negative Negative 11/17/2021 [facility] 6:08 AM CDT [facility] Comment: All PCR tests are subject to fa lse negative result due to variability in viral load and collection technique. A n egative result does not rule out a SARS-CoV-2 infection. Clinical correlation required . Specimen Anatomical Location / Collection Method Collection Nikita e Received Time (Source) Laterality / Volume Other SPECIMEN FROM Non-Blood / 11/17/2021 4:34 11/17/2021 4:56 NASOPHARYNGEAL Unknown AM CDT AM CDT STRUCTURE / Unknown Narrative [facility] LABORATORY - 11/17/2021 6:08 AM CDT This test has been authorized by FDA und er an Emergency Use Authorization (EUA). This test is only authorized for the duration of time the declaration that circumstances exist justifying the authorization of th e emergency use of in vitro diagnostic tests for detection of SARS-CoV-2 virus and/or diagnosis of COVID-19 infection under section 564(b)(1) of the Act, 21 U.S.C. 360bbb-3(b) (1), unless the authorization is terminated or revoked sooner. Salo JIM MICROBIOLOGY Performing Organization Address City/State/ZIP Code Phon e Number [facility] LABORATORY SENDOUT INTERNAL ZIP [place] [address] [phone] [facility] [address] CHEST W (11/17/2021 3:22 AM CDT) Anatomical Region Laterality Modality CHEST, THORAX, HEART Computed Tomography Specimen (Source) Anatomical Collection Method Collection Time Re ceived Time Location / / Volume Laterality 11/17/2021 3:22 AM CDT Impressions 11/17/2021 3:56 AM CDT 1. ??Worsening consolidation of the right middle lobe when compared 08/13/2021 secondary to the enlarging right hilar mass, postobstructive pneumonia cannot be completely excluded. 2. ??Significant worsening of the medias tinal metastatic adenopathy. 3. ??Multifocal narrowing of the branche s of the right pulmonary artery secondary to a large hilar mass, with occlusion of the pulmonary artery vessels supplying the right middle lobe. 4. ??Interval development of multiple sm all right-sided pulmonary nodules several which have peripheral areas of groundglass, the largest of which measures 8 mm in the right upper lobe given their inter brianna rapid development in the patient's h istory these are concerning for metastatic foci. 5. ??Interval development of septal lizbeth a and thickening in the right lower lobe and a small right-sided effusion, may reflect compression and/or occlusion of the pulmonary veins and/or lymphatics secon lisa to the extensive neoplastic involve ment of the hilum and mediastinum. 6. ??Small pericardial effusion Narrative 11/17/2021 3:56 AM CDT For Patients: As a result of the Century Cures Act, medical imaging exams and procedure reports are released immediately into your [facility] medical record. You may view this report before your referring provider. If you have questions, please contact your health care provider. EXAM: CT CHEST W LOCATION: [facility] MEDICAL IMAGING DATE/TIME: 11/17/2021 3:22 AM INDICATION: Eval for atypical pnumonia v s worsening lung CA COMPARISON: None. TECHNIQUE: CT chest with IV contrast. Mu ltiplanar reformats were obtained. Dose reduction techniques were used. CONTRAST: IOHEXOL 350 MG IODINE/ML IV 50 0 ML BOTTLE: 60mL FINDINGS: LUNGS AND PLEURA: There is worsening con solidation of the right prior exam. Increased septal edema seen within the right lower lobe with a small right pleural effusion now presents. Multiple pulmonary n odules are seen within the right upper l obe which are new from the prior exam several which have subtle groundglass areas surrounding them the largest of which is within the right upper lobe measuring 8 mm posteriorly (image 92, series 3). MEDIASTINUM/AXILLAE: The large right hil ar mass is again identified which when compared to the prior PET/CT appears to be enlarged the hilar and mediastinal adenopathy has significantly worsened with co nfluent infrahilar adenopathy now measur ing 3.6 x 5 cm. The large hilar mass narrows the right mainstem bronchus, similar to prior exam. Narrowing to occlusion of multiple right middle lobe bronchi are again noted. ?? Right hilar mass narrows and compresses the right upper lobe pulmonary artery branches and has occluded the right middle lobe coronary artery branch as well as the narrowing the right lower lobe pulmona ry artery branches. The right lower lobe and interlobar branches A small pericardial effusion is present. CORONARY ARTERY CALCIFICATION: Mild. UPPER ABDOMEN: No significant finding. MUSCULOSKELETAL: A remote compression fr acture of L1 is noted. No acute osseous abnormalities are noted at this time. Procedure Note North Perez MD - 11/17/2021For matting of this note might be different from the original. For Patients: As a result of the ntury Cures Act, medical imaging exams and procedure reports are released immediately into your electronic medical record. You may view this report before your referring provider. If you have questions, please contact [facility] health care provider. EXAM: CT CHEST W LOCATION: [facility] MEDICAL IMAGING DATE/TIME: 11/17/2021 3:22 AM INDICATION: Eval for atypical pnumonia v s worsening lung CA COMPARISON: None. TECHNIQUE: CT chest with IV contrast. Mu ltiplanar reformats were obtained. Dose reduction techniques were used. CONTRAST: IOHEXOL 350 MG IODINE/ML IV 50 0 ML BOTTLE: 60mL FINDINGS: LUNGS AND PLEURA: There is worsening con solidation of the right prior exam. Increased septal edema seen within the right lower lobe with a small right pleural effusion now presents. Multiple pulmonary nodules are seen within the right upper lobe which are ne w from the prior exam several which have subtle groundglass areas surrounding them the largest of which is within the right upper lobe measuring 8 mm posteriorly (image 92, series 3). MEDIASTINUM/AXILLAE: The large right hil ar mass is again identified which when compared to the prior PET/CT appears to be enlarged the hilar and mediastinal adenopathy has significantly worsened with confluent infrahilar adenopathy now measuring 3.6 x 5 cm. The large hilar mass narrows the right mainstem bronchus, similar to prior exam. Narrowing to occlusion of multiple right middle lobe bronchi are again noted. Right hilar mass narrows and compresses the right upper lobe pulmonary artery branches and has occluded the right middle lobe coronary artery branch as well as the narrowing the right lower lobe pulmonary artery branches. The right lower lobe and inter lobar branches A small pericardial effusion is present. CORONARY ARTERY CALCIFICATION: Mild. UPPER ABDOMEN: No significant finding. MUSCULOSKELETAL: A remote compression fr acture of L1 is noted. No acute osseous abnormalities are noted at this time. IMPRESSION: 1. Worsening consolidation of the right middle lobe when compared 08/13/2021 secondary to the enlarging right hilar mass, postobstructive pneumonia cannot be completely excluded. 2. Significant worsening of the mediasti nal metastatic adenopathy. 3. Multifocal narrowing of the branches of the right pulmonary artery secondary to a large hilar mass, with occlusion of the pulmonary artery vessels supplying the right middle lobe. 4. Interval development of multiple smal l right-sided pulmonary nodules several which have peripheral areas of groundglass, the largest of which measures 8 mm in the right upper lobe given their interval rapid development in the patient's history the se are concerning for metastatic foci. 5. Interval development of septal edema and thickening in the right lower lobe and a small right-sided effusion, may reflect compression and/or occlusion of the pulmonary veins and/or lymphatics secondary to the extensive neoplastic involvement of the hilum and mediastinum. 6. Small pericardial effusion Salo JIM CT PROCALCITONIN (11/17/2021 1:45 AM CDT) P athologist Signature PROCALCITONIN 0.14 <0.50 11/17/2021 [facility] ng/ml 4:55 AM CDT LABORATORY Specimen Anatomical Collection Method / Collection Time Recei ry Time (Source) Location / Volume Laterality Blood BLOOD SPECIMEN / Non-Lab 11/17/2021 1:45 11/18/19 1:49 Unknown Venipuncture / AM CDT AM CDT Unknown Narrative [facility] LABORATORY - 11/17/2021 4:55 AM CDT Procalcitonin for initial assessment of Lower Respiratory Tract Infection: Results Interpretation <0.1 ng/mL ?Antibiotics strong ly discouraged.* 0.1 - 0.25 ng/mL ??Antibiotics discourag ed. * 0.26 - 0.50 ng/mL Antibiotics encouraged . >0.50 ng/mL ? Antibiotics strongl y encouraged. *If suspicion of infection high, clinica lly unstable, or immunosuppressed: initiate antibiotics. Repeat PCT testing in 6-24 hours. Repeat PCT testing every 1-2 days whil e on antibiotics to assess response to therapy. Procalcitonin for initial assessment of severe sepsis risk: Results Interpretation < 0.5 ng/mL Associated with a low risk f or progression to severe sepsis/septic shock. > 2.0 ng/mL Associated with a high risk for progression to severe sepsis/septic shock. Note: PCT levels below 0.5 ng/mL do not exclude an infection, because localized infections may also be associated with such low levels. If the PCT measurement is done very early after the systemic infec tion process has started (usually <6 johnathon rs), these values may still be low. PCT levels between 0.5 ng/mL and 2.0 ng/ mL should be interpreted in the context of the specific clinical background and conditions of the individual patient. It is recommended to re-test PCT within 6-24 hours if any concentrations <2.0 ng/mL are obtained. Salo JIM SEND OUTS Performing Organization Address City/State/ZIP Code Phon e Number [facility] LABORATORY SENDOUT INTERNAL ZIP [place] [phone] [place] [address] NUCLEATED RED BLOOD CELLS PERCENT OF BLOOD LEUKOCYTES (11/17/2021 1:45 AM CDT) athologist Signature NRBC 0.0 % 11/17/2021 [facility] 1:53 AM CDT LABORATORY ABS NRBC 0.0 thou /cu mm 11/17/2021 [facility] 1:53 AM CDT LABORATORY Specimen Anatomical Collection Method / Collection Time Recei ry Time (Source) Location / Volume Laterality Blood BLOOD SPECIMEN / Non-Lab 11/17/2021 1:45 11/18/19 22 1:49 Unknown Venipuncture / AM CDT AM CDT Unknown Salo JIM LABORATORY Performing Organization Address City/[facility]/ZIP Code Phon e Number [facility] LABORATORY SENDOUT INTERNAL [place] [phone] [place] [address] POTASSIUM (11/17/2021 1:45 AM CDT) athologist Signature POTASSIUM 4.1 3.5 - 5.0 11/17/2021 [facility] mmol/L 2:03 AM CDT LABORATORY Specimen Anatomical Collection Method / Collection Time Recei ry Time (Source) Location / Volume Laterality Blood BLOOD SPECIMEN / Non-Lab 11/17/2021 1:45 11/18/19 22 1:49 Unknown Venipuncture / AM CDT AM CDT Unknown Doctor Unknown CHEMISTRY Performing Organization Address City/[facility]/ZIP Code Phon e Number [facility] LABORATORY SENDOUT INTERNAL [place] [phone] [place] [address] XR CHEST 2 VIEWS PA AND LATERAL (11/17/2021 1:16 AM CDT) Anatomical Region Laterality Modality CHEST, THORAX, Lung, HEART Computed Radi ography Specimen (Source) Anatomical Collection Method Collection Time Re ceived Time Location / / Volume Laterality 11/17/2021 1:16 AM CDT Impressions 11/17/2021 1:27 AM CDT Progressive increase consolidation within the right lower lobe, which may be attributable to interval increase in size of malignancy and postobstructive infection/inflammation. There is also increasing interstitial change throughout the remai nder of the right lung, which may reflect atypical infiltrate versus lymphangitic carcinomatosis. Correlation with CT imaging would be helpful. Left lung is clear. No definitive pleura l effusion. No pneumothorax. Cardiomediastinal silhouette is normal. Postsurgical changes of the visualized l umbar spine. Narrative 11/17/2021 1:27 AM CDT For Patients: As a result of the Cures Act, medical imaging exams and procedure reports are released immediately into your [facility] medical record. You may view this report before your referring provider. If you have questions, please contact your health care provider. EXAM: XR CHEST 2 VIEWS PA AND LATERAL LOCATION: [facility]ICAL IMAG[facility] DATE/TIME: 11/17/2021 1:16 AM INDICATION: Chest pain; cough COMPARISON: 08/01/2021; 07/31/2021 Procedure Note Burke Valle MD - 11/17/2021For matting of this note might be different from the original. For Patients: As a result of the Cures Act, medical imaging exams and procedure reports are released immediately into your electronic medical record. You may view this report before your referring provider. If you have questions, please contact [facility] health care provider. EXAM: XR CHEST 2 VIEWS PA AND LATERAL LOCATION: [facility]AG[facility] DATE/TIME: 11/17/2021 1:16 AM INDICATION: Chest pain; cough COMPARISON: 08/01/2021; 07/31/2021 IMPRESSION: Progressive increase consolidation withi n the right lower lobe, which may be attributable to interval increase in size of malignancy and postobstructive infection/inflammation. There is also increasing interstitial change throughout the remai nder of the right lung, which may reflect atypical infiltrate versus lymphangitic carcinomatosis. Correlation with CT imaging would be helpful. Left lung is clear. No definitive pleura l effusion. No pneumothorax. Cardiomediastinal silhouette is normal. Postsurgical changes of the visualized l umbar spine. Salo JIM GENERAL IMAGING PROTIME-INR (11/17/2021 12:56 AM CDT) P athologist Signature INR 1.0 <1.3 11/17/2021 [facility] 1:16 AM CDT LABORATORY PROTIME 13.0 12.0 - 13.8 11/17/2021 [facility] sec 1:16 AM CDT LABORATORY Specimen Anatomical Collection Method / Collection Time Recei ry Time (Source) Location / Volume Laterality Blood BLOOD SPECIMEN / Non-Lab 11/17/2021 12:56 022 1:00 Unknown Venipuncture / AM CDT AM CDT Unknown Narrative [facility] LABORATORY - 11/17/2021 1:16 AM CDT ?Therapeutic Range 2.0-3.0 for most anticoagulated patients 2.5-3.5 or 4.0 for high risk patients The INR is only used for patients on sta ble oral anticoagulant therapy. It makes no significant contribution to the diagnosis or treatment of patients whose Protime is prolonged f or other reasons. INR results are increased when heparin l evels exceed 1.0 U/mL, which corresponds to an aPTT >125 seconds if the patient is on UFH. [facility] Performing Organization Address City/State/ZIP Code Phon e Number [facility] SENDOUT INTERNAL ZIP [place], [place] [phone] [place] [address] from Last 3 Months Insurance Payer Benefit Plan / Subscriber ID Effective Dates Phone Addre ss Type Group MEDICARE PART A MEDICARE PART A [id number] 2021-Presen ATTN: CLAIMS - HB USE ONLY HB ONLY t [address] [place] [address] BLUE CROSS BLUE CROSS OF [id number] 2021-Presen [address] [place] [address] MEDICARE PART B MEDICARE PART B [id number] 2021-Presen ATTN: CLAIMS - HB USE ONLY HB ONLY t [address] [place] [address] MEDICARE - PB MEDICARE PB [id number] 2021-Presen ATTN : CLAIMS USE ONLY ONLY t [address] [place] [address] Advance Directives Latest Code Status on File Code Status Date Activated Date Inactivated Comments Full Code 11/17/2021 3:14 PM 11/19/2021 8:27 PM Code Status Discussion: Reviewed Preferences Full Code 03/10/2021 7:37 AM 03/10/2021 4:28 PM Code Status Discussion: Unable to Assess Preferences, Provid er to review later Full Code 07/04/2015 12:48 PM 07/05/2015 7:24 PM Full Code 07/04/2015 9:34 AM 07/04/2015 12:48 PM Full Code 06/05/2015 8:10 PM 06/06/2015 2:49 PM 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
--- OUTSIDE RECORDS SUMMARY | 2022-02-01 13:16 | XMS_ITS | Encounter Summary ---
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 [facility] Procedures MR Brain without and with IV Contrast MR Brain with IV Contrast [address] [place] [address] Referral ID Status Reason Start Date Expiration Date Visits V isits Requested Authorized [id number] Modified 08/17/2021 08/17/2022 1 1 Order Encounter Details Date Type Department Care Team Description 08/17/2021 Documentation Division of Pulmonary Galen Potter M.D. Medicine in [address] [place] [phone] [place] [address] [phone] Social History Tobacco Use Types Packs/Day Years [...] do you attend christianity or Never 2021 mormonism services? Do you belong to any clubs or No 08/23/2021 organizations such as christianity groups, unions, fraSpaBoom or athletic groups, or school groups? How [...] or slept in a assisted (including now)? Sex Assigned at Date Recorded Male 08/23/2021 10:27 AM CDT documented as of this encounter Progress Notes Sharad Potter M.D. - 08/17/2021 12:57 PM CDT Triage note 61-year-old current smoker with history of prostate cancer. Presents with chronic cough. Abnormal chest radiograph was identified. CT scan reportedly confirmed a 6 cm right hilar mass with postobstructive atelectasis. The patient is scheduled to undergo some sort of biopsy today. I do not have the detailed information. They also do not have the outside images. We need to obtain outside imaging. We also will have to obtain the results of the biopsy. The patient will need a PET CT scan and pulmonary function testing prior to her visit. We would also need an MRI scan of the brain. In addition we would want some basic laboratory testing. If this was already done at the outside facility we need the results otherwise I will enter orders to pre schedule that. After that is available the patient can be seen in our clinic. documented in this encounter Plan of Treatment Not on filedocumented as of this encounter Results Pulmonary Function Tests (08/27/2021 7:04 AM CDT) Analysis Performed At Patho logist Time Signature VC MAX POST 3.31 L 08/27/2021 [facility] 9:58 AM CDT SUITE PostFVC 3.31 L 08/27/2021 [facility] 9:58 AM CDT SUITE PostFEV1 2.39 L 08/27/2021 [facility] 9:58 AM CDT SUITE FEV1/FVC POST 72.39 % 08/27/2021 [facility] 9:58 AM CDT SUITE FEF 25-75 % 1.69 L/s 08/27/2021 [facility] 9:58 AM CDT SUITE PEF POST 6.24 L/s 08/27/2021 [facility] 9:58 AM CDT SUITE FET POST 10.91 sec 08/27/2021 [facility] 9:58 AM CDT SUITE DLCO SINGLE 18.04 ml/(min*mm 08/27/2021 [facility] Hg) 9:58 AM CDT SUITE DLCOC SINGLE 19.58 ml/(min*mm 08/27/2021 [facility]ATH [facility] Hg) 9:58 AM CDT SUITE HB 12.10 g(Hb)/dL 08/27/2021 [facility] 9:58 AM CDT SUITE VA SINGLE 4.62 L 08/27/2021 [facility] 9:58 AM CDT SUITE [id number] 98.00 % 08/27/2021 [facility] 9:58 AM CDT SUITE PulseRest 63.00 1/min 08/27/2021 [facility] 9:58 AM CDT SUITE [id number] 93.00 % 08/27/2021 [facility] 9:58 AM CDT SUITE PulseExer 103.00 1/min 08/27/2021 [facility] 9:58 AM CDT SUITE EXER TIME 3.00 min 08/27/2021 [facility] 9:58 AM CDT SUITE STEP HEIGHT 9.00 Inch 08/27/2021 [facility] 9:58 AM CDT SUITE TLC POST 4.93 L 08/27/2021 [facility] 9:58 AM CDT SUITE VC POST 3.34 L 08/27/2021 [facility] 9:58 AM CDT SUITE FRCPLETH POST 2.90 L 08/27/2021 [facility] 9:58 AM CDT SUITE RV 1.59 L 08/27/2021 [facility] AM [facility] SUITE RV % TLC POST 32.32 % 08/27/2021 [facility] 9:58 AM CDT SUITE VC MAX PRE 3.50 L 08/27/2021 [facility] 9:58 AM CDT SUITE FVC 3.50 L 08/27/2021 [facility] 9:58 AM CDT SUITE FEV1 2.25 L 08/27/2021 [facility] 9:58 AM CDT SUITE FEV1/FVC 64.11 % 08/27/2021 [facility] 9:58 AM CDT SUITE [id number]% 1.26 L/s 08/27/2021 [facility] 9:58 AM CDT SUITE PEF PRE 6.11 L/s 08/27/2021 [facility] 9:58 AM CDT SUITE FET PRE 9.65 sec 08/27/2021 [facility] 9:58 AM CDT SUITE SUBSTANCE POST Albuterol 08/27/2021 [facility] 9:58 AM CDT SUITE DOSE POST 2 Puff 08/27/2021 [facility] 9:58 AM CDT SUITE % PRED VC MAX 92 % % 08/27/2021 [facility] 9:58 AM CDT SUITE FVC% 92 % % 08/27/2021 [facility] 9:58 AM CDT SUITE FEV1% 75 % % 08/27/2021 [facility] 9:58 AM CDT SUITE % PRED 82 % % 08/27/2021 [facility] FEV1/FVC 9:58 AM CDT SUITE % PRED FEF 49 % % 08/27/2021 [facility] 25-75% 9:58 AM CDT SUITE % PRED PEF 83 % % 08/27/2021 [facility] 9:58 AM CDT SUITE PRED TLC 6.05 08/27/2021 [facility] 9:58 AM CDT SUITE PRED RV 1.91 08/27/2021 [facility] 9:58 AM CDT SUITE PRED VC MAX 3.83 08/27/2021 [facility] 9:58 AM CDT SUITE PRED FVC 3.83 08/27/2021 [facility] 9:58 AM CDT SUITE PRED FEV 1 2.99 08/27/2021 [facility] 9:58 AM CDT SUITE PRED FEV1/FVC 78.2 08/27/2021 [facility] 9:58 AM CDT SUITE PRED FEF 2.56 08/27/2021 [facility] 25-75% 9:58 AM CDT SUITE PRED PEF 7.4 08/27/2021 [facility] 9:58 AM CDT SUITE PRED DLCO 23.3 08/27/2021 [facility] 9:58 AM CDT SUITE PRED DLCOc 23.3 08/27/2021 [facility] 9:58 AM CDT SUITE Specimen (Source) Anatomical Collection Method Collection Time Re ceived Time Location / / Volume Laterality 08/27/2021 7:04 AM CDT Impressions [facility] - 08/27/2021 9:58 AM C DT Abnormal study. Borderline obstruction with a negative bronchodilator response. Normal lung volumes and normal diffusing capacity. Normal rest and exercise oximetry. Narrative This result has an attachment that is no t available. Procedure Note Misael Morrison M.D., M.P.H. - 08/27/2021 IMPRESSION: Abnormal study. Borderline obstruction w ith a negative bronchodilator response. Normal lung volumes and normal diffusing capacity. Normal rest and exercise oximetry. Sharad Potter M.D. PFT ORDERABLES Performing Organization Address City/State/ZIP Code Phon e Number [facility] NA MR Brain without and with IV Contrast (08/26/2021 4:55 PM CDT) Anatomical Region Laterality Modality Head, Brain, Neuroradiology RST LOS, Neuroradiology ARZ N/A Magnetic Resonance LOS, Neuroradiology FLA LOS Specimen (Source) Anatomical Collection Method Collection Time Re ceived Time Location / / Volume Laterality 08/26/2021 5:05 PM CDT Impressions 08/26/2021 5:55 PM CDT Several small areas of enhancement, potentially vascular in etiology, most prominent left subinsular white matter and left cerebellar hemisph ere. Consider short-term 3-4 week follow-up. Narrative 08/26/2021 5:55 PM CDT EXAM: MR BRAIN WITHOUT AND WITH IV CONTRAST COMPARISON: No comparisons. FINDINGS: Two punctate foci of enhanceme nt left subinsular white matter and peripheral aspect of the left cerebral hemisphere (se600/im65 and 47), both appear to be associated with susceptibility artifact, and therefore likely vascular related. Additional very subtle linear enhancemen t right frontal and parietal lobes (se600/im88 and 84). 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 Mild generalized intracranial volume los s and chronic small vessel changes, most prominent within the brainstem. Somewhat prominent web designer developer ior aspect of the pituitary gland, without overt underlying mass. No recent infarct, intracranial blood pr oducts, hydrocephalus, mass effect or midline shift. Patent arterial flow voids at the skull base. Trace mucosal thickening about paranasal sinuses. Clear mastoid air cells. Procedure Note Beatris Issa M.D., M.B.A. - 022 EXAM: MR BRAIN WITHOUT AND WITH IV CONTR AST COMPARISON: No comparisons. FINDINGS: Two punctate foci of enhanceme nt left subinsular white matter and peripheral aspect of the left cerebral hemisphere (se600/im65 and 47), both appear to be associated with susceptibility artifact, and therefore likely vascular related. Additional very subtle linear enhancemen t right frontal and parietal lobes (se600/im88 and 84). 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 Mild generalized intracranial volume los s and chronic small vessel changes, most prominent within the brainstem. Somewhat prominent web designer developer ior aspect of the pituitary gland, without overt underlying mass. No recent infarct, intracranial blood pr oducts, hydrocephalus, mass effect or midline shift. Patent arterial flow voids at the skull base. Trace mucosal thickening about paranasal sinuses. Clear mastoid air cells. IMPRESSION: Several small areas of enhancement, pote ntially vascular in etiology, most prominent left subinsular white matter and left cerebellar hemisph ere. Consider short-term 3-4 week follow-up. Sharad RACHEL MRI PROCEDURES Comprehensive Metabolic Panel (08/26/2021 10:16 AM CDT) athologist Signature Potassium, S 4.5 3.6 - [...] 08/26/2021 [facility] Black/ mL/min/BSA 11:12 AM CDT Guamanian Comment: ----ADDITIONAL INFORMATION---- Estimated GFR calculated using [...] City/State/ZIP Code Phon e Number [facility] [address] [place], [place] [address] [facility] [place] [address] [facility] [address] (ABNORMAL) CBC with Differential, Blood (08/26/2021 10:16 AM CDT) [facility] gist Method Time Signature Hemoglobin 12.1 [...] City/State/ZIP Code Phon e Number [facility] - [address] [place], [place] [address] [facility] [place] [address] [facility] [address] documented in this encounter Visit Diagnoses Diagnosis [facility] - Primary 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
--- OUTSIDE RECORDS SUMMARY | 2022-02-01 13:16 | XMS_ITS | Encounter Summary ---
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 [facility] Procedures MR Brain without and with IV Contrast MR Brain with IV Contrast [address] [place] [address] Referral ID Status Reason Start Date Expiration Date Visits V isits Requested Authorized [id number] Modified 08/17/2021 08/17/2022 1 1 Order Encounter Details Date Type Department Care Team Description 08/26/2021 Hospital Encounter Department of Catia Potter Neoplasm Of Bronchus And Lung Multiple Site Right (HCC); Radiology, Hayden Orourke M.D. [facility], in [place], [address] [place], [place] [address] [facility] [address] [place], [place] [phone] [address] (Work) [phone] Social History Tobacco Use Types Packs/Day Years [...] or relatives? How often do you attend mormon or Never 2021 jewish services? Do you belong to any clubs or No 08/23/2021 organizations such as mormon groups, unions, fraternal or athletic groups, or [...] - Inhaled Oxygen Concentration - - Weight - - Height 167.6 cm (5' 6) 08/26/2021 4:00 PM CDT Body Mass Index - - documented in [...] Diagnosis MR BRAIN WITHOUT RAD - Routine 08/26/2021 4:55 Malignant Results for this AND WITH IV (most inpatients PM CDT Neoplasm Of procedure a re in CONTRAST and all Bronchus And Lung the result s outpatients) Multiple Site section. Right (HCC) [facility] documented in this encounter Results MR Brain without and with IV Contrast (08/26/2021 4:55 PM CDT) Anatomical Region Laterality Modality Head, Brain, Neuroradiology RST LOS, Neuroradiology AR N/A Magnetic Resonance LOS, Neuroradiology [facility] Specimen (Source) Anatomical Collection Method [...] most prominent within the brainstem. Somewhat prominent drilling assistant ior aspect of the pituitary gland, without [...] most prominent within the brainstem. Somewhat prominent drilling assistant ior aspect of the pituitary gland, without [...] 3-4 week follow-up. 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 documented in this encounter Additional Health Concerns Infection Onset Date Last Indicated Resolved Time COVID19 Pending 08/26/2021 08/26/2021 08/26/2021 5:49 PM CDT documented as of this encounter
--- OUTSIDE RECORDS SUMMARY | 2022-02-01 13:17 | XMS_ITS ---
:1960 Author Care Team Providers Name Role Phone HAKEEM CUNNINGHAM MD Primary Care Provider [phone] Allergies Code Code System Name Reaction Severity Status Onset NKDA ? Medications Name Status Start Date Stop Date ? ? amoxicillin 500 mg capsule Completed ? 01/14 TAKE ONE CAPSULE BY MOUTH THREE TIMES DAILY UNTIL GONE ciprofloxacin 500 mg tablet Completed ? 12/25 Take 1 Tablet (500 mg) by mouth 2 times daily for 7 days. escitalopram 10 mg tablet Completed ? 2020 Take 1 Tablet by mouth every morning. hydrocodone 5 mg-acetaminophen 325 mg tablet Completed ? 01/14/2021 TAKE ONE TABLET BY MOUTH EVERY SIX HOURS NEEDED FOR PAIN ibuprofen 600 mg tablet Completed ? 01/15/20 21 TAKE ONE TABLET BY MOUTH EVERY SIX HOURS NEEDED FOR PAIN omeprazole 20 mg capsule,delayed release Completed ? 01/14/2021 Take 1 capsule by mouth 2 times daily before meals. omeprazole 40 mg capsule,delayed release Active ? Not available TAKE ONE CAPSULE BY MOUTH ONCE DAILY before a meal ondansetron HCl 4 mg tablet Completed ? 12/25 Take 1 Tablet (4 mg) by mouth every 8 hours if needed for Nause a/Vomiting tadalafil 20 mg tablet Active ? Not avail able TAKE ONE TABLET BY MOUTH NEEDED TIMED AROUND SEXUAL ACTIVITY Problems Name Status Onset Date Source ? Malignant Tumor of Prostate Active 04/30/2015 Hist ory Raised Prostate Specific Antigen Active 05/13/2015 History Procedure on Genitourinary System Active 06/13/2015 History Postoperative Care Active 06/13/2015 History History of Malignant Neoplasm of Prostate Active 2015 History Erectile Dysfunction Following Radical Prostatectomy Active 11/03/2015 History Procedures Date Name Performed by ? 05/25/2017 Repair Rotator Cuff Chronic Information not available Notes: 05/25/2017 - REPAIR ROTATOR CUF F CHRONIC 02/23/2017 Colonoscopy Thru Stoma Spx Information n ot available Notes: 02/23/2017 - COLONOSCOPY THRU S CONNER SPX 06/05/2015 [facility] Radical Prostatectomy Information not available Notes: 06/05/2015 - [facility]ARO RADICAL PRO STATECTOMY 05/13/2015 Biopsy of Prostate Information not avmimi reece Notes: 05/13/2015 - BIOPSY OF PROSTATE 05/13/2015 N Block Other Peripheral Information not available Notes: 05/13/2015 - N BLOCK OTHER GHADA PHERAL 04/30/1999 Total Knee Arthroplasty Information not available Notes: 04/30/1999 - TOTAL KNEE ARTHROP LASTY ? Remove Spine Lamina 1/2 Lmbr Information not available Notes: REMOVE SPINE LAMINA 1/2 LMBR Results Lab Results Date Name Specimen Result Interpretation Description Value Range Status Address ? 01/14/2021 PSA, Total, BLDV ? PSA, <0.10 <4.0 NG/mL [facility] Serum or Total NG/mL Urology - Plasma Augusto Monroy b: [address] [place] [address] Past Encounters 01/14/2021 History of Malignant Neoplasm of Prostat e; Erectile Dysfunction Following Radical Prostatectomy Lele Mendoza, PAC: [address] [facility], [address], [place] [address], Ph. Social History Tobacco Smoking Status Light Tobacco Smoker (2 packs per wee k) Vaccine List None recorded. Plan of Care Reminders Provider Appointments None recorded. ? ? Lab None recorded. ? ? Referral None recorded. ? ? Procedures None recorded. ? ? Surgeries None recorded. ? ? Imaging None recorded. ? ? Vitals Height Weight BMI 5 ft 6 in 175 lbs 28.2 kg/m2
--- OUTSIDE RECORDS SUMMARY | 2022-02-01 13:17 | XMS_ITS | Encounter Summary ---
:1960 Author Organization [employer] Address [address], [place] [address] Care Team Providers Name Role Phone Unassigned, Provider Primary Care Provider Unavailable Reason for Visit Reason Comments CHEMICAL EXPOSURE 11/2 hour ago Encounter Details Date Type Department Care Team Description 05/20/2005 Emergency [facility] [place], TOXIC EFFECT [facility] [address] [place], [place] [id number] [place] [address] [place] [address] Social History Tobacco Use Types Packs/Day Years Used Date Smoking Tobacco: Never Assessed Sex Assigned at Date Recorded Not on file documented as of this encounter Last Filed Vital Signs Vital Sign Reading Time Taken Comments Blood Pressure 117/58 05/20/2005 12:06 PM SMEARER Pulse 53 05/20/2005 12:06 PM SMEARER Temperature 36.5 ??C (97.7 ??F) 05/20/2005 12:06 PM SMEARER Respiratory Rate 20 05/20/2005 12:06 PM SMEARER Oxygen Saturation 100% 05/20/2005 12:06 PM SMEARER Inhaled Oxygen Concentration - - Weight - - Height - - Body Mass Index - - documented in this encounter Discharge Instructions Discharge InstructionsFaby Heredia - 05/20/2005 2:43 PM SMEARER Dear Ms. Norris, Thank you for choosing [facility] for your emergency medical needs. You have received emergency care only and your condition may change. Therefore, we highly recommend you follow-up with your physician as directed. For follow-up care contact: Please follow up with your primary care clinic/provider. Occupational Health [phone] For follow-up care, you should be seen within tomorrow or Tuesday. When you see your doctor, bring your medications and instructions to the office. If you had x-rays,an EKG, or lab tests today, they have been reviewed by your emergency department doctor. We will contact you at once if other important findings are notified after further review of our staff. If you do not continue to improve or if your condition worsens, please call your doctor or the emergency roomright away. I understand that my condition may require more care and will arrange for further treatment as recommended. If you would like to be seen in a [facility] clinic, please call the [facility] Appointment Desk at [phone] anytime between 7:00 AM and 9:00 PM, 7 days a week, 365 days a year (Hearing Impaired: ). Please bring these instructions with you when you are seen in your follow-up appointment. Co-pays for this visit may be paid for at the discharge desk. Chemical Inhalation Your caregiver has diagnosed you as suffering from chemical inhalation (breathing in). Inhaling chemical gas is dangerous. It causes an irritation of the linings of the breathing tubes within the lungs. If this irritation (inflammation) or reaction to the chemical is bad, it can cause difficulty breathing. Do not return to the area of the chemical exposure until authorities tell you it is safe. Chemical inhalation is often treated with observation. Observation may often be carried out at home.If the reaction has been severe hospitalization may be required. Sometimes anti-inflammatory medications are necessary. These are medications which decrease the inflammation (soreness from use) Bronchioles in the lungs. If hospitalization is required, it will be necessary for you to remain in the hospitaluntil your breathing is close to normal and it is safe for you to go home. CALL YOUR CAREGIVER OR THIS LOCATION IF ? an oral temperature above 102&deg; F (38.9&deg; C) develops, or as your caregiver suggests. RETURN IMMEDIATELY IF: ?? You have wheezing, difficulty breathing, continuous cough, nausea (feeling sick to your stomach) or vomiting. ?? You have shortness of breath with your usual activities, or if your heart seems to beat too fast with minimal (very little) exercise. ?? You become confused, irritable, or unusually sleepy. Have someone drive you to the emergency department or call [address] yourself. A re- check will determine if hospitalization is necessaryfor closer observation and/or treatment. ExitCare(R) Patient Information (C)2004 [employer]. \\[email or web address]\epic\ExitcareNonfieldFull\NonFields\di\Bengali - No [email or web address]\[id number] RER documented in this encounter Consult Notes Nii Kruger R - 05/20/2005 3:10 PM SMEARER [facility] Toxicology Consult Note Patient Name: Hector Norris Date of : 1960 Chief Complaint: Patient presents with: CHEMICAL EXPOSURE Date of Consultation: 05/20/2005 Reason for Consultation: The Toxicology Service was asked by Dr. Faria and Faby Heredia PA-C to evaluate this patient for chlorine fumes exposure, and to make recommendations for disposition and further treatment Assessment: Hector Norris is a 45 yr old male presenting with approximately 30 minutes exposureto chlorine fumes while working in an open area 20 ft (height) X 20 ft (width) X 60 ft (length). He initially had burning in chest after 30 minutes of working in the environment then a cough. He is currently improving and has minimal to no symptoms at the time of Tox evaluation. Recommendations: 1. CXR 2. PEFR 3. Treat wheezing and respiratory symptoms with albuteral neb. 4. Admit for severe respiratory symptoms or failure to respond to nebs 5. Follow-up [facility] prn History: Hector Norris is a 45 yr old male brought in from work for chlorine exposure. History is taken from the patient. 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 The pipes may not have been fully flushed before [employer] crew moved in. The area of workspace was large at 20'X20'X60'. Although he smelled a slight odor throughout the work period, he did not experience symptoms until 30-40 minutes of working. It started with a sensation in his chest followed by coughing spell. He immediatley left the area for attention. PMH: No past medical history on file. BAck Surgery X 2 Meds: There are no current hospital/outpatient medications on file prior to 05/20/05 Allergies: No Known Allergies. 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 No obvious or classic odors on the patient Mouth/Throat: no exudates, no erythema and no dental tenderness Neck: supple, without adenopathy or tenderness Chest/Pulmonary: chest clear with equal lung sounds bilaterally, no chest wall tenderness or deformities, no tachypnea and no retractions Laboratory Data: chest X-ray was reviewed and there is increased interstitial pattern, withour distent consolidation Summary: Hector Norris is a 45 yr old male with chlorine odor exposure. The toxicology service recommendations are listed above, and we will continue to follow this patient with you. Thank you forallowing us to participate in this patient's care. If you have any questions, or if the patient's condition changes, please page the Toxicology Service at pager [phone] Time with Patient: 20 minutes. Electronically Signed by: Nii Kruger MD - 05/20/2005 - 3:10 PM Director, Clinical Toxicology Service Pager: [phone] RER documented in this encounter ED Notes [place] [facility] - 06/01/2005 3:19 AM [facility] Emergency Department Attending Supervision Note Patient Name: Hector Norris Date of : 1960 I have personally seen and examined patient. Case reviewed and discussed with Faby Heredia PA-C. PMH, FH, SOC, ROS reviewed. Please see today's note by MARGARITO. MARGARITO Care under my supervision. This electronic signature covers the nursing and ancillary testing orders for this visit. Author: [facility] RER Faby Heredia - 05/20/2005 2:43 PM [facility] Emergency Department Work Slip Patient Name: Hector Norris Date of : 1960 Date of Evaluation: 05/20/2005 Patient states this injury/illness is work related and occurred on 05/20/05 Follow-up with [facility] [phone] Tuesday or Tuesday. Return to work on 05/24/05 if the following restrictions can be met: symptoms resolved and able to be seen in the clinic Faby Heredia Attending Physician: [facility] RER Patricia Luciano - 05/20/2005 2:35 PM SMEARER 1405 Toxicology here to see pt. Pt admits to breathing better after neb. Peak flow - 500 with little effort. Pt states he is so much better than was b/4.1445 D/C instructions given to pt. He had no fur ther questions. Pt will f/u tomorrow of Tue. with Occ. med. Left knowing what to return to ED for ifany SOB, or trouble breathing. RER Faby Heredia - 05/20/2005 1:52 PM [facility] Emergency Department Visit Note Patient Name: Hector Norris Date of : 1960 Chief Complaint: Patient presents with: CHEMICAL EXPOSURE--ED - 11/2 hour ago HPI: 45yo male presents to ED for chemical exposure. 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 Pt states he did not purge the pipes before removing them. For approx 20 mintues he could smell a strong odor of the chlorine. He then began having mild burning of the eyes, chest pain, SOB and nausea. Denies respiratory difficulty, CRUZ, vision changes, syncope. Pt left the area after this. Upon arrival to the ED the pt reports his sx are resolving. He no longer c/o SOB and the chest discomfort is improving. Denies eye pain, blurred vision, CRUZ. Pt stoppedsmoking seven months ago- he was a 1ppd x 28yr smoker previously. Denies hx CAD or lung dz. Pt denies other injuries or potential exposures. Denies possibility of CO exposure. No other medical concernsat this time. PMH: No past medical history on file. No past surgical history on file. Meds: No active medications on file as of 05/20/2005 Allergies: Review of patient's allergies indicates no known allergies. Social and Family History: Tobacco Use: quit Alcohol Use: Not on file FH-n/c Review of Systems: Please see [employer] flowsheet for review of systems. Physical Exam: BP 117/58 Pulse 53 Temp (Src) 97.7 (Oral) Resp 20 SaO2 100% General: alert, oriented to person, place, time, normal hydration and NAD, reading magazine Head: atraumatic Eyes: PERRL, EOMI, corneas clear and conjunctivae with mild injection otherwise clear Mouth/Throat: mmm, no oral lesions or lacerations, oropharynx clear, no exudates, no erythema, no dental tenderness, structures midline and no hoarseness, posterior pharynx clear, airway patent, no swelling Neck: no tenderness, supple, full AROM, no adenopathy and no bruits Chest/Pulmonary: mild wheezing bilateral LL otherwise chest clear with equal lung sounds bilaterally, no chest wall tenderness or deformities, no tachypnea, no retractions and no cyanosis Cardiovascular: S1, S2 normal, regular rate and rhythm, no murmur, no rubs, no S3 or S4, no JVD, nopedal edema and peripheral pulses radial, DP and PT symmetric Musculoskel/Extremities: normal extremities, no edema, erythema, tenderness and full AROM of major joints without tenderness Skin: no rashes, no diaphoresis and skin color normal Neuro: speech clear, gait stable, cranial nerves II-XII grossly symmetric, motor: 5/5 strength in upper lower extremities and sensory/light touch Medical Decision Making: Dr. Nii Kruger from toxicology contacted regarding need for admission. Pt is several hours out from exposure and sx are resolving. Tox felt pt could be d/c home with instructions to return to ED ifsx increase/worsen. The critical time for chlorine exposure and pulmonary edema is usually shortly after the incident. Chest xray normal. Results reviewed with the pt. Toxicology service was able to see the pt in the ED and reviewed the chest xray as well. Peak flows 500. Agreed with plan for d/c homeand close f/u. Advised to return to ED if increase pain, SOB, neck/chest/throat tightness, dizziness. Pt to otherwise f/u [facility] tomorrow. Pt agreed with plan and questions answered. Assessment: 45yo male chlorine gas exposure Plan: as above Condition on disposition: Stable Patient seen with: [facility] This electronic signature covers the nursing and ancillary testing orders for this visit. Author: Faby Heredia - 05/20/2005 1:52 PM [facility] - 05/20/2005 1:15 PM [facility] Emergency Department Visit Note Patient Name: Millie Norris Date of : 1960 Chief Complaint: Patient presents with: CHEMICAL EXPOSURE--ED - 11/2 hour ago HPI: 45 year old male exposed to chlorine gas at 10:30. Mr Norris states he was at the [employer] working on [employer]. 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 Pt states he did not purge the pipes before removing them. For approx 20 mintues he could smell a strong odor of the chlorine. He then began having mild SOB and nausea. Denies respiratory difficulty, CRUZ, vision changes, eye pain, syncope, presyncope, other injuries or potential exposures, possibility of CO exposure. Pt left the area after this. Upon arrival to the ED the pt reports his sx are resolving. He no longer c/o SOB. PMH: Denies history of CAD Meds: No active medications on file as of 05/20/2005 Allergies: Review of patient's allergies indicates no known allergies. Social and Family History: stopped smoking seven months ago- he was a 1ppd x 28yr smoker previously. Review of Systems: Please see [employer] flowsheet for review of systems. Physical Exam: BP 117/58 Pulse 53 Temp (Src) 97.7 (Oral) Resp 20 SaO2 100% General: alert, oriented to person, place, time and normal hydration Head: atraumatic Eyes: PERRL, EOMI, corneas clear and conjunctivae clear Nose: no rhinorrhea/nasal discharge Mouth/Throat: no exudates, no erythema and no dental tenderness Neck: no tenderness, supple and full AROM Chest/Pulmonary: no chest wall tenderness or deformities, no tachypnea and mild wheezing heard diffusely throughout both lungs wheezing resloved with one albuterol neb Cardiovascular: S1, S2 normal and regular rate and rhythm Abdomen: soft, non-tender, no guarding, no rebound tenderness and no tenderness to percussion Musculoskel/Extremities: normal extremities, no edema, erythema, tenderness and full AROM of major joints without tenderness Skin: no rashes, no diaphoresis and skin color normal Neuro: speech clear, gait stable, cranial nerves II-XII grossly symmetric and sensory/light touch Medical Decision Makin45 year old male exposed to cholrine gas for less than 1/2 hour in a large space currently asymptomatic. He was seen by the Tox freight team associate by Dr. Kruger who felt pt could be d/c home with instructions to return to ED if sx increase/worsen. The critical time for chlorine exposure and pulmonary edema is usually shortly after the incident. Chest xray normal. Results reviewed with the pt. Toxicology service was able to see the pt in the ED and reviewed the chest xray as well. Peak flows 500. Agreed withplan for d/c home and close f/u. Advised to return to ED if increase pain, SOB, neck/chest/throat tightness, dizziness. Pt [facility]. Pt agreed with plan and questions answered. Plan: Re-check Vitals Imaging: Plain Radiograph(s): chest Consultation: Toxicology Medication: Albuterol [place] patient/family Re-evaluate patient Check response to treatment Planned Disposition: home Condition on disposition: Stable This electronic signature covers the nursing and ancillary testing orders for this visit. Author: [facility] - 05/20/2005 1:15 PM RER Mustapha Patricia Waqas - 05/20/2005 12:57 PM SMEARER BETY AGS EXPOSURE WHILE CLEANING OUT LINES FOR DEMOLITION. C/O OF COUGH AND SOME IRRITAION. LUNGS CLEAR AT THIS TIME. RER Shanthi Stanford - 05/20/2005 12:04 PM SMEARER Chlorine gas RER documented in this encounter Plan of Treatment Not on filedocumented as of this encounter Procedures Procedure Name Priority Date/Time Associated Diagnosis Comme nts CHEST PA/LATERAL Routine 05/20/2005 1:41 PM Resul ts for this SMEARER procedure are i n the results section. documented in this encounter Results CHEST PA/LATERAL (05/20/2005 1:41 PM SMEARER) Component Value Ref Test Analysis Performed At Patholo gist Range Method Time Signature Chest AP/PA + PA AND LATERAL CHEST 05/20/05 AT 1338 HOURS REGIONS Lateral 2 INDICATIONS: ??Chlorine gas exposure. RADIOLOGY Views COMPARISONS: ??None. Cardiovascular appearance is normal and the lungs are expand ed and clear. ??No soft tissue or bony abnormalities. ??No air trap ping. CONCLUSION: ??Normal chest. Anatomical Region Laterality Modality Other Specimen (Source) Anatomical Collection Method Collection Time Re ceived Time Location / / Volume Laterality 05/20/2005 1:41 PM SMEARER [facility] MD RAD GENERAL DIAGNOSTIC/RH documented in this encounter Visit Diagnoses Diagnosis Toxic effect of chlorine gas(987.6) Toxic effect of chlorine gas documented in this encounter Care Teams Assembler Finger Buffs Relationship Specialty Start Date End Date Unassigned, Provider PCP - General 09/19/02 10/29/[address] [place] [id number] documented as of this encounter
--- OUTSIDE RECORDS SUMMARY | 2022-02-01 13:17 | XMS_ITS | Encounter Summary ---
:1960 Author Organization [employer] Address [address] [address] Care Team Providers Name Role Phone Unassigned, Provider Primary Care Provider Unavailable Reason for Visit Reason Comments EYE IRRITATION Encounter Details Date Type Department Care Team Description 10/30/2018 Emergency HH Emergency Burke Griffin, Chemical exposure of [address] eye (Primary Dx) [place], [place] [id number] [address] [facility] [phone] [place], [place] [id number] (Wo rk) Social History Tobacco Use Types Packs/Day Years Used Date Smoking Tobacco: Every Day Smokeless Tobacco: Never Alcohol Use Standard Drinks/Week Comments Yes 0 (1 standard drink = 0.6 oz pure alcoho l) Sex Assigned at Date Recorded Not on file documented as of this encounter Last Filed Vital Signs Vital Sign Reading Time Taken Comments Blood Pressure 134/84 10/30/2018 7:44 AM CDT Pulse 59 10/30/2018 7:44 AM CDT Temperature 36.6 ??C (97.8 ??F) 10/30/2018 7:44 AM CDT Respiratory Rate 16 10/30/2018 7:44 AM CDT Oxygen Saturation 96% 10/30/2018 7:44 AM CDT Inhaled Oxygen Concentration - - Weight - - Height - - Body Mass Index - - documented in this encounter Discharge Instructions AttachmentsThe following attachments cannot be sent through Care Everywhere. Chemical Keratitis (Thai)documented in this encounter ED Notes Jaci Worthington RN - 10/30/2018 8:20 AM CDT [facility] ED Nursing Discharge Note BP 134/84 Pulse (!) 59 Temp 97.8 ??F (36.6 ??C) (Oral) Resp 16 SpO2 96% Admission Date/Time: 10/30/2018 7:40 AM Patient discharged: to Home. Patient accompanied by: friend. Transported by: Walked Valuables were taken home by patient: Yes Work/School Slip given: No Discharge instructions given and explained to patient: Yes Discharge prescriptions given to patient or electronically prescribed by provider: No Patient verbalized understanding. Yes Patient level of pain on discharge: 0 Patients condition on discharge related to chief complaint and treatment in ED: Stable. ---End of Report--- Burke Tracy MD - 10/30/2018 8:18 AM CDT [facility] Emergency Department Visit Note Chief Complaint: Chief Complaint Patient presents with ??? EYE IRRITATION HPI: Patient was at work with safety goggles on and got a splash of [employer] clear PVC primer in his eye. Eye feels irritated but no other symptoms He says the splash didn't go directly into his eye, but rather around his glasses. No other complaints or concerns. PMH: No past medical history on file. No past surgical history on file. Meds: No outpatient medications have been marked as taking for the 10/30/18 encounter (Hospital Encounter). Allergies: Patient has no known allergies. Social and Family History: Social History Tobacco Use ??? Smoking status: Current Every Day Smoker ??? Smokeless tobacco: Never Used Substance Use Topics ??? Alcohol use: Yes No family history on file. Review of Systems: Please see HPI. Otherwise, complete ROS is noncontributory. Physical Exam: BP 134/84 Pulse (!) 59 Temp 97.8 ??F (36.6 ??C) (Oral) Resp 16 SpO2 96% General: alert and in no acute distress Head: atraumatic, normocephalic Eyes: EOMI, PERRL. Right eye: pH is 7, vision is normal. Full slit lamp exam with staining is normal. Neuro: Patient awake, alert, oriented, speech is fluent, gait is normal Psychiatric: affect/mood normal, cooperative, normal judgement/insight and memory intact Medical Decision Making: Patient with chemical injury to the right eye. pH is normal after irrigation here in the ED. No evidence of corneal injury. Vision is normal. At this time he has a normal exam and further workup or treatment is not indicated at this time. I reviewed the SDS with the patient. He will FU with his PCP in2d if he is having any symptoms. No further workup is indicated at this time in the Emergency Department. Discussed danger signs at length with the patient and all questions fully answered. Return if symptoms persist or worsen, or any new troubling symptoms develop. Condition on disposition: Stable aJci oWrthington RN - 10/30/2018 8:06 AM CDT Provider at bedside. Jaci Worthington RN - 10/30/2018 8:03 AM CDT After proparacaine administered to right eye, irrigated eye with 400ml Lactated Ringers, patient then requested to stop due to discomfort. MD updated. documented in this encounter Plan of Treatment Not on filedocumented as of this encounter Visit Diagnoses Diagnosis Chemical exposure of eye - Primary Triage Assessment Note - Jaci Worthington RN - 10/30/2018 7:43 AM CDT Chief Complaint: Chemical injury to right eye. Onset: Just prior to arrival. 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 States he rinsed with water immediately. Feels the lid is injured. Treatments/Monitoring Initiated: NA. Arrived to ER by: Private vehicle, ambulatory with steady gait. documented in this encounter Administered Medications Inactive Administered Medications - up to 3 most recent administrations Medication Order MAR Action Action Date Dose Rate Site proparacaine (OPHTHETIC) 0.5 % Given 10/30/2018 7:[address] ophthalmic solution 2 Drop 2 Drop, Right Eye, ONCE, On Tue10/30/18 at 0830, For 1 dose documented in this encounter Active and Recently Administered Medications Times are shown in CDT. Scheduled Medication Order 10/28/2018 10/29/2018 10/30/2018 proparacaine (OPHTHETIC) 0.5 % ophthalmic solution 2 Drop (COMPL ETED) [id number] (Given - Provider: Jaci Worthington RN) 2 Drop, Right Eye, ONCE, Tue10/30/18 at 0830, For 1 dose documented in this encounter Care Teams Radiological Metallurgist Relationship Specialty Start Date End Date Unassigned, Provider PCP - General Unknown Physician 10/30/[address] [place] [id number] documented as of this encounter
--- OUTSIDE RECORDS SUMMARY | 2022-02-01 13:17 | XMS_ITS | Encounter Summary ---
:1960 Author Organization [facility] Address [address], [place] [address] Care Team Providers Name Role Phone Unassigned, Provider Primary Care Provider Unavailable Encounter Details Date Type Department Care Team Description 05/20/2005 Correspondence None [facility] Conse nt and Release Social History Tobacco Use Types Packs/Day Years Used Date Smoking Tobacco: Never Assessed Sex Assigned at Date Recorded Not on file documented as of this encounter Progress Notes [facility] ROMELIA, PROVIDER - 05/20/2005 12:00 AM BRICK SETTER documented in this encounter Plan of Treatment Not on filedocumented as of this encounter Visit Diagnoses Not on filedocumented in this encounter Care Teams Aemt Relationship Specialty Start Date End Date Unassigned, Provider PCP - General 09/19/02 10/29/[address] [place] [address] documented as of this encounter
--- OUTSIDE RECORDS SUMMARY | 2022-02-01 13:17 | XMS_ITS | Clinical Summary ---
:1960 Author Organization [facility] Address [address] [place] [address] Care Team Providers Name Role Phone Unassigned, Provider Primary Care Provider Unavailable Source Comments You are receiving this document as you are listed as the primary care provider,follow-up provider, or the patient has been referred to you for consultation.This is in compliance with the Medicare and Medicaid EHR Incentive Program,which states Providers who transition their patient to another setting of careor provider of care or refers their patient to another provider of care shouldprovide summarycare record for each transition of care or referral. [facility] Allergies No known active allergies Medications No known medications Social History Tobacco Use Types Packs/Day Years Used Date Smoking Tobacco: Every Day Smokeless Tobacco: Never Alcohol Use Standard Drinks/Week Comments Yes 0 (1 standard drink = 0.6 oz pure alcoho l) Sex Assigned at Date Recorded Not on file Last Filed Vital Signs Vital Sign Reading Time Taken Comments Blood Pressure 134/84 10/30/2018 7:44 AM CDT Pulse 59 10/30/2018 7:44 AM CDT Temperature 36.6 ??C (97.8 ??F) 10/30/2018 7:44 AM CDT Respiratory Rate 16 10/30/2018 7:44 AM CDT Oxygen Saturation 96% 10/30/2018 7:44 AM CDT Inhaled Oxygen Concentration - - Weight - - Height - - Body Mass Index - - Plan of Treatment Health Maintenance Due Date Last Done Comments Colon Cancer Screening Plan Due 1960 Hep C Screening (Preventive 1960 Services) PSA Screening Discussion 1960 COVID-19 Vaccine (#1) 1960 HIV Screening (Preventive 1976 Services) Adult Preventive Visit 1978 DTaP/Tdap/Td (1 - Tdap) 1979 Cholesterol 1995 Zoster/Shingles (1 of 2) 2010 Influenza (#1) 2021 HepA Aged Out No longer eligib le based on patient's age to complete this topic HepB Aged Out No longer eligib le based on patient's age to complete this topic Hib Aged Out No longer eligib le based on patient's age to complete this topic IPV (Polio) Aged Out No longer eligib le based on patient's age to complete this topic MCV4 Aged Out No longer eligib le based on patient's age to complete this topic Pneumococcal Aged Out No longer eligib le based on patient's age to complete this topic Insurance Payer Benefit Plan Subscriber ID Effective Phone Address Typ e / Group Dates [facility] HP SELF [id number] 2017-Pre Co mmercial INSURED sent MISC INS WORK MISC INS [id number] 1999-Pre CLAIMS Wor kers Comp COMP WC WORK COMP WC sent DEPT [address] [place] [address] [facility] 2005-Pr [phone] Workers Comp WC MUTUAL WC esent [phone] [place] [address] AMERISURE AMERISURE 2018-Pre [phone] Workers Comp INSURANCE WC INSURANCE WC sent [id number] [id number] BCBS BCBS CCS [id number] 2018-Pr [address] Com mercial BLUE LINK 01 esent [address] [place] [address] Cash Norris Personal/Famil Self [id number] y (Home) [facility] [phone] [place], [place] (Work) [address] CASH NORRIS Comp Self [address] (Home) [place] [address] Cash Norris Workers Comp Self [id number] (Home) [place] [address] Care Teams Analytics Analyst Relationship Specialty Start Date End Date Unassigned, Provider PCP - General Unknown Physician 10/30/[address] [place] [address] [place] [address]
--- OUTSIDE RECORDS SUMMARY | 2022-02-01 13:17 | XMS_ITS | Encounter Summary ---
:1960 Author Organization [facility] Address [address], [place] [address] Care Team Providers Name Role Phone Unassigned, Provider Primary Care Provider Unavailable Encounter Details Date Type Department Care Team Description 05/20/2005 Emergency Room Emergency Dept Emergency, [facility] [address] [place] [address] Provider ORDERS/[place] [address] Social History Tobacco Use Types Packs/Day Years Used Date Smoking Tobacco: Never Assessed Sex Assigned at Date Recorded Not on file documented as of this encounter Progress Notes Emergency, Provider - 05/20/2005 12:00 AM PROGRAM SPECIALIST documented in this encounter Plan of Treatment Not on filedocumented as of this encounter Visit Diagnoses Not on filedocumented in this encounter Care Teams Secretary Of State Relationship Specialty Start Date End Date Unassigned, Provider PCP - General 09/19/02 10/29/18 [address] [place] [address] documented as of this encounter
--- OUTSIDE RECORDS SUMMARY | 2022-02-01 13:17 | XMS_ITS | Encounter Summary ---
:1960 Author Organization [facility] Address [address] [place] [address] Care Team Providers Name Role Phone Unassigned, Provider Primary Care Provider Unavailable Encounter Details Date Type Department Care Team Description 05/20/2005 Correspondence Emergency Dept Patricia Luciano, RN [facility] D[facility] PATIENT [address] [facility] [place], [place] [facility] [address] [address] [phone] [place] [address] Social History Tobacco Use Types Packs/Day Years Used Date Smoking Tobacco: Never Assessed Sex Assigned at Date Recorded Not on file documented as of this encounter Progress Notes Patricia Luciano - 05/20/2005 12:00 AM HAND TACKER TACKER documented in this encounter Plan of Treatment Not on filedocumented as of this encounter Visit Diagnoses Not on filedocumented in this encounter Care Teams Lpta Relationship Specialty Start Date End Date Unassigned, Provider PCP - General 09/19/02 10/29/18 [address] [place] [address] documented as of this encounter
[2022-02-01 13:26] VITALS: O2SAT 94
[2022-02-01 13:30] VITALS: BP 129/77; PULSE 81; RESP 16; O2SAT 94
[2022-02-01 13:36] LABS: NT Pro B Type NatriureticPept* 749 PG/mL (0-125)
[2022-02-01 13:42] LABS: Troponin I* < 0.01 ng/mL (0.01-0.04)
--- NOTE | 2022-02-01 13:52 | ED.GENADULT ---
HPI - General Adult General Chief complaint: Shortness of Breath/Dyspnea Stated complaint: Cancer patient/Shortness of breath Time Seen by Provider: 02/01/22 12:35 Source: patient Mode of arrival: ambulatory Limitations: no limitations History of Present Illness HPI narrative: 61-year-old patient with a history of adenocarcinoma of the lung with metastasis presents today with increased shortness breath. He states that for the last week or so he has had a productive cough that keeps him up at night. States that his uncomfortable to lay down to sleep at night because he develops increased chest pressure on lying down. He states that he felt the exact same way awhile back when he was diagnosed with pneumonia. He denies fevers or chills that he is aware of appetite is unchanged. Again he is feeling short of breath at rest and with physical activity, productive cough. No sore throat, no abdominal discomfort. No blood in his sputum. Related Data Home Medications Medication Instructions Recorded Confirmed benzonatate 100 mg capsule 100 mg PO TID PRN cough 10/28/21 02/01/22 codeine-guaifenesin oral syrup 10 ea PO Q4H PRN 10/28/21 02/01/22 escitalopram oxalate 10 mg tablet 10 mg PO DAILY 10/28/21 02/01/22 omeprazole 40 mg capsule,delayed 40 mg PO DAILY 10/28/21 02/01/22 release ondansetron 8 mg disintegrating 8 mg PO Q8H PRN 10/28/21 02/01/22 tablet prochlorperazine maleate 10 mg 10 mg PO Q6H PRN 10/28/21 02/01/22 tablet tadalafil 20 mg tablet 20 mg PO DAILY PRN 10/28/21 02/01/22 gambyzc-ytsosshwmxvek-zlgukqky 250 1 tab PO Q4-6H PRN 12/14/21 01/25/22 mg-250 mg-65 mg tablet (Excedrin Extra Strength) colchicine 0.6 mg tablet 0.6 mg PO BID PRN 12/14/21 02/01/22 folic acid 400 mcg tablet 0.4 mg PO QDAY 12/14/21 02/01/22 ibuprofen 800 mg tablet 800 mg PO Q8H 12/14/21 02/01/22 oxycodone 5 mg tablet 5 mg PO Q4H PRN 12/14/21 02/01/22 rivaroxaban 10 mg tablet (Xarelto) 10 mg PO QDAY 01/25/22 02/01/22 diltiazem HCl 240 mg 240 mg PO Q24H 02/01/22 02/01/22 capsule,extended release 24 hr diltiazem HCl 60 mg tablet mg 02/01/22 Previous Rx's Medication Instructions Recorded dexamethasone 4 mg tablet 8 mg PO BID #12 tabs 01/29/22 amoxicillin 875 mg-potassium 1 tab PO BID 7 days #14 tabs 02/01/22 clavulanate 125 mg tablet azithromycin 250 mg tablet 250 mg PO .As prescribed #6 tabs 02/01/22 Allergies Allergy/AdvReac Type Severity Reaction Status Date / Time No Known Drug Allergies Allergy Verified 02/01/22 13:07 Review of Systems Status of ROS: Reports: 10 or more systems reviewed and unremarkable except as noted in History and below [facility] Medical History Hx of prostatic malignancy Hx of rheumatoid arthritis 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 Left inguinal hernia Lumbago Lung neoplasm Myalgia and myositis, unspecified Thoracic or lumbosacral neuritis or radiculitis Surgical History History of total right knee replacement S/P prostatectomy S/P rotator cuff repair Social History Smoking Status: Former smoker What tobacco products do you use: cigarettes Smoking quit date/years: <= 15 years ago Do you use any of these nicotine containing products: None Second hand tobacco smoke exposure: No How often do you have a drink containing alcohol: 2-3 times a week How many standard drinks containing alcohol do you have on a typical day: 3 or 4 AUDIT-C Alcohol total score: 4 Non-prescribed substance use: denies use service: Yes Exam Narrative: Exam Narrative: Well-nourished well-developed patient in no acute distress. Alert and oriented. Answers questions appropriately. Mood and affect are appropriate. Thoughts are goal oriented and rational. No tangential or magical thinking noted. Patient speaks in full sentences without needing to catch his breath. Speech is not slurred or pressured. Voice sounds normal. HEENT: Normocephalic atraumatic. Pupils are equally round reactive to light. Extraocular muscles are intact. Conjunctivae are moist without any icterus noted. Moist mucous membranes. Posterior pharynx is normal. Neck is supple. Cardiovascular: Heart is regular rate and rhythm S1 and S2 are present without any murmurs. Lungs: Clear to auscultation bilaterally no wheezes rhonchi or rales are appreciated. Patient takes deep breaths without any discomfort. He just has slightly decreased breath sounds on both sides. Abdomen: Soft and nontender nondistended with normal bowel sounds. Extremities: Bilateral lower extremities show 1+ pitting edema with the right greater than the left which the patient states is new. Skin: Well perfused without any obvious rashes. Const: Vital Signs, click to edit/add: Vital Signs - 24 hr 02/01/22 11:50 02/01/22 13:26 Temperature 99.4 F Pulse Rate [Bilate ral] 78 Respiratory Rate 20 Blood Pressure [Le ft Upper Arm] 125/75 Pulse Oximetry 97 94 Oxygen Delivery Me thod Room Air Course Course Hospital Course: Lab work was reviewed from earlier in the cancer infusion center: White blood cell count is slightly elevated at 12.5. Hemoglobin low at 10.5. Platelet count 486. He does have a left shift with 93% neutrophils. Chemistries are unremarkable. Troponin was less than 0.01 and BNP up at 749. Chest x-ray consistent with a new right lower lobe infiltrate. Vital Signs Vital signs: Initial Vital Signs Temperature 99.4 F 02/01/22 11:50 Temperature Source Temporal Artery Scan 02/01/22 11:50 Pulse Rate 78 02/01/22 11:50 Pulse Rhythm 02/01/22 11:50 Pulse Strength 3+ Normal 02/01/22 11:50 Respiratory Rate 20 02/01/22 11:50 Blood Pressure 125/75 02/01/22 11:50 Blood Pressure Mean 91 02/01/22 11:50 Blood Pressure Position Supine 02/01/22 11:50 Pulse Oximetry 97 02/01/22 11:50 Oxygen Delivery Method 02/01/22 11:50 Vital Signs Temperature 99.4 F 02/01/22 11:50 Pulse Rate 78 02/01/22 11:50 Respiratory Rate 20 02/01/22 11:50 Blood Pressure 125/75 02/01/22 11:50 Pulse Oximetry 97 02/01/22 11:50 Oxygen Delivery Method 02/01/22 11:50 Temperature 99.4 F 02/01/22 11:50 Pulse Rate 78 02/01/22 11:50 Respiratory Rate 20 02/01/22 11:50 Blood Pressure 125/75 02/01/22 11:50 Pulse Oximetry 94 02/01/22 13:26 Oxygen Delivery Method 02/01/22 11:50 Medical Decision Making [facility] Narrative Medical decision making narrative: 61-year-old male with adenocarcinoma with metastasis come presenting with increased shortness of breath and productive cough, findings and workup consistent with pneumonia. Given the patient's comorbidities ring put him on Augmentin and azithromycin. Also showing very mild signs of fluid overload with extremity swelling, small pleural effusion, elevated BNP-patient received 1 dose of oral Lasix in the ED today. He is to follow up as an outpatient as needed. Return to the ER if symptoms worsen. Medical Records Medical records reviewed: Yes I reviewed the patient's medical records Lab Data Lab results reviewed: Yes I reviewed the patient's lab results Labs: Lab Results 02/01/22 02/01/22 Range/Units 10:55 12:02 Troponin I < 0.01 L (0.01-0.04) ng/mL NT-Pro-B Natriuret Pep 749 H (0-125) PG/mL SARS-CoV-2 (PCR) Negative SARS-CoV-2 (Negative) Imaging Data Chest x-ray: Attestation: I have reviewed the pertinent imaging results. Radiologist's impression: Chest 2 views COMPARISON: CT-PET 12/24/2021 FINDINGS: Increased prominence of the bronchovascular structures when compared to the prior study with interstitial thickening resulting in bronchial wall thickening and patchy ill-defined airspace opacities within the right lower lobe. Similar appearance of the right paramediastinal/right perihilar tissues. Tortuosity of the aorta. Trace right pleural effusion. No pneumothorax. Osseous structures are similar. IMPRESSION: Bilateral lower lobe bronchiolitis and right lower lobe infiltrate with trace right pleural effusion. ECG Data Attestation: I personally reviewed and interpreted this ECG as follows: (Normal sinus rhythm pulse 76) Discharge Plan Discharge Clinical Impression: Pneumonia Patient Disposition: Home, Self-Care Condition: Stable Instructions: Community Acquired Pneumonia (DC) Additional Instructions: Take both antibiotics as prescribed, start today. Return to the ER if you are getting worse instead of better. Prescriptions: New amoxicillin-pot clavulanate 875-125 mg tablet 1 tab PO BID 7 Days Qty: 14 0RF azithromycin 250 mg tablet 250 mg PO .As prescribed Qty: 6 0RF Taper: Z-STEPHENIE 500 mg Q24H for 1 Day and 0 Hour 250 mg Q24H for 4 Days and 0 Hour Rx Instructions: For 250 mg dose pack: take 500 mg today (day 1), then 250 mg for 4 days (days 2-5) No Action oxycodone 5 mg tablet 5 mg PO Q4H PRN ibuprofen 800 mg tablet 800 mg PO Q8H colchicine 0.6 mg tablet 0.6 mg PO BID PRN folic acid 400 mcg tablet 0.4 mg PO QDAY Excedrin Extra Strength 250-250-65 mg tablet 1 tab PO Q4-6H PRN Xarelto 10 mg tablet 10 mg PO QDAY Rx Instructions: for 35 days benzonatate 100 mg capsule 100 mg PO TID PRN (Reason: cough) escitalopram oxalate 10 mg tablet 10 mg PO DAILY codeine-guaifenesin Syrup 10 ea PO Q4H PRN Rx Instructions: 10ml q4h omeprazole 40 mg capsule,delayed release(DR/EC) 40 mg PO DAILY ondansetron 8 mg tablet,disintegrating 8 mg PO Q8H PRN prochlorperazine maleate 10 mg tablet 10 mg PO Q6H PRN tadalafil 20 mg tablet 20 mg PO DAILY PRN Rx Instructions: administer approximately 30min before sexual activity; do not use more than 1 dose per 24hrs diltiazem HCl 60 mg tablet diltiazem HCl 240 mg capsule,extended release 24hr 240 mg PO Q24H Label Comments: Take 1 Capsule (240 mg) by mouth once daily. dexamethasone 4 mg tablet 8 mg PO BID Qty: 12 5RF Rx Instructions: TAKE 2 TABS TWICE A DAY FOR 3 DAYS START THE DAY BEFORE CHEMO, DAY OF CHEMO AND DAY AFTER CHEMO Follow Up/Referrals: Provider,Not a Local [Primary Care Provider] - Stand Alone Forms: Your Style Unzipped Info Instructions
[2022-02-01 14:22] VITALS: BP 119/89; PULSE 81; RESP 20; TEMP 37; O2SAT 96
[2022-02-01] MEDS: FUROSEMIDE 20 MG TABLET PO (14:27)
--- NOTE | 2022-02-01 14:34 | ED.NURSE ---
Patient was discharged home. Discharge instructions provided to patient. Prescriptions for Azithromycin and Augmentin sent to [facility]. PO lasix X1 given to patient prior to discharge. Will go to [facility] tomorrow for chemo at 1130 and will follow up with PCP in 1 week. Patient had no other questions and left ambulatory with crutches.
--- NOTE | 2022-02-01 18:30 | ED.NURSE ---
cancels IV order prior to departure--bloodwork already in lab from [facility].
== END 2022-02-01 14:30 | disposition home or self-care (01) ==
PROVIDERS: Emergency Provider Family Medicine
DX: J18.9 Pneumonia, unspecified organism (principal)
CPT/HCPCS: 36415; 71046; 80048; 83605; 83880; 84484; 85025; 87631; 87635; 93005; 94761; 99284; 99285; A9270

== ENCOUNTER 2022-02-25 11:18 | Outpatient (CLI) | payer BC, MEDICARE, SELFPAY ==
--- OUTSIDE RECORDS SUMMARY | 2022-02-25 11:24 | XMS_ITS | Encounter Summary ---
:1960 Author Organization [facility] Address [address] [place] [address] Care Team Providers Name Role Phone Tin [...] on filedocumented in this encounter Care Teams Forge Tender Relationship Specialty Start Date End Date Tin Hernandez PCP - General Family Medicine 01/06/[address] [place], [place] [id number] documented as of this encounter
--- OUTSIDE RECORDS SUMMARY | 2022-02-25 11:24 | XMS_ITS | Encounter Summary ---
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) Lesion of femur Lung cancer metastatic to bone (H) [C34.90, C79.51] Lesion of femur [M89.9] [facility] Periop Services Procedures ZZC OPEN FIX INTER/SUBTROCH FX,PLATE ZZC OPEN FIX INTER/SUBTROCH FX,IMPLNT ZZC OPEN TREATMENT GREATER TROCHANTERIC FRACTURE PROPHYLACTIC INTRAMEDULLARY NAILING OF RIGHT HIP [address] [place], [place] [phone] Phone: Referral ID Status Reason Start Date Expiration Date Visits Requ ested Visits Authorized [id number] 1 1 Encounter Details Date Type Department Care Team Description 01/07/2022 Anesthesia Event M [facility] Cast[facility] [address] [place] [address] [place], [place] [phone] (Wo rk) [address] [phone] Anesthesia Record Procedure Summary Procedure Name Responsible Anesthesia Start Anesthesia Stop Anesthesiologist Time Time PROPHYLACTIC Hector Castillo, 01/07/22 1400 01/07/22 1605 INTRAMEDULLARY NAILING MD OF RIGHT HIP (Right: Hip) Events Date Time Event Comment 01/07/2022 1236 1253 COMMUNICATIONS EQUIPMENT SUPERVISOR Ready for Procedure 1400 An Start 1401 AN REASSESS I attest that I have identified and re-evaluated the patient immediately before the induction of anesthesia and I am satisfied that t he anesthetic plan is suitable for the patient's condition and procedure. The f irst vital signs recorded are pre- inducti on. Vandana Padilla APRN COMMUNICATIONS EQUIPMENT SUPERVISOR 1401 An Start Data 1404 MD Present 1410 Anesthesia Complete 1501 MD Present 1538 MD Present 1556 an stop data 1605 An Stop Electronically s igned by Vandana Padilla APRN COMMUNICATIONS EQUIPMENT SUPERVISOR on 2021 4:05 PM Name Total midazolam [...] and realistic alternatives discussed. Questions answered and patient/bank representative(s) expressed understanding. - Discussed: Risks, Benefits [...] Miscellaneous Notes Anesthesia Care Transfer Note - Vandana Padilla APRN COMMUNICATIONS EQUIPMENT SUPERVISOR - 01/07/2022 4:05 PM CDT Patient: Hector [...] Administration Time: 2:05 PM Coleman Oneill MD CT ANESTHESIA documented in this encounter Visit Diagnoses [...] Administer over 2 Minutes, PRN, Starting on Ko[place] 01/07/22 at 1400, Anesthesia Intra-op ondansetron (ZOFRAN) [...] mL/hr documented in this encounter Care Teams Carpenter Assistant Relationship Specialty Start Date End Date Tin Hernandez PCP - General Family Medicine 01/06/[address] [place] [address] documented as of this encounter
--- OUTSIDE RECORDS SUMMARY | 2022-02-25 11:24 | XMS_ITS | Encounter Summary ---
:1960 Author Organization [facility] Address [address] [place] [id number] Care Team Providers Name Role Phone Tin Hernandez Primary Care Provider Encounter Details Date Type Department Care Team Description 02/06/2022 Travel Social History Tobacco Use Types Packs/Day Years Used Date Smoking Tobacco: Former Smokeless Tobacco: Never Alcohol Use Standard Drinks/Week Comments Yes 0 (1 standard drink = 0.6 oz pure alcoho l) Sex Assigned at Date Recorded Not on file COVID-19 Exposure Response Date Recorded In the last 10 days, have you been in contact No / Unsure 02/06/2022 10:07 PM CDT with someone who was confirmed or suspected to have Coronavirus/COVID-19? documented as of this encounter Plan of Treatment Not on filedocumented as of this encounter Visit Diagnoses Not on filedocumented in this encounter Care Teams Compensation Expert Relationship Specialty Start Date End Date Tin Hernandez PCP - General Family Medicine 01/06/[address] [place], [place] [id number] documented as of this encounter
--- OUTSIDE RECORDS SUMMARY | 2022-02-25 11:24 | XMS_ITS | Encounter Summary ---
:1960 Author Organization [facility] Address [address] [place] [id number] Care Team Providers Name Role Phone Hakeem Cunningham Maryjane Primary Care Provider Reason for Visit Reason Comments Flank Pain Auth/Cert (Routine) Specialty Diagnoses / Procedures Referred By Contact Refer red To Contact Med Surg Diagnoses SIRS (systemic inflammatory response syndrome) (H) Acute respiratory failure with hypoxia (H) Malignant neoplasm of lung, unspecified laterality, unspecified part of lung (H) Acute respiratory failure with hypoxia (H) [address] Malignant neoplasm of lung, unspecified laterality, unspecified part of lung (H) SIRS (systemic inflammatory response syndrome) (H) [address] [place], [place] [address] Phone: Fax: Referral ID Status Reason Start Date Expiration Date Visits Requ ested Visits Authorized [id number] 1 1 Encounter Details Date Type Department Care Team Description 02/06/2022 - [facility] Burke Morelos MD [address] [place], [place] [id number] Acute respiratory failure with hypoxia ( H); 02/08/2022 Encounter [facility] Gomez Leong MD [address] [place], [place] [id number] Malignant neoplasm of lung, unspecified laterality, unspecified part of lung (H); [place] [address] Herman Los Del Real DO [address] [facility] [address] [place] [id number] SIRS (systemic inflammatory response syn drome) (H) [address] [facility] Steph Lott MD [address] [place], [place] [id number] [place] [address] Social History Tobacco Use Types Packs/Day [...] Sign Reading Time Taken Comments Blood Pressure 108/66 02/08/2022 12:25 AM CDT Pulse 69 02/08/2022 7:42 AM CDT Temperature 36.4 ??C (97.5 ??F) 02/08/2022 12:25 AM CDT Respiratory Rate 16 02/08/2022 11:57 AM CDT Oxygen Saturation 92% 02/08/2022 11:57 AM CDT Inhaled Oxygen Concentration - - Weight 74.8 kg (165 lb) 02/06/2022 10:10 PM CDT Height 165.1 cm (5' 5) 02/06/2022 10:10 PM CDT Body Mass Index 27.46 02/06/2022 10:10 PM CDT documented in this encounter Discharge Summaries Steph Lott MD - 02/08/2022 2:21 PM CDT [facility] Hospitalist Discharge Summary Date of Admission: 02/06/2022 Date of Discharge: 02/08/2022 2:21 PM Discharging Provider: Steph Lott MD Discharge Service: Hospitalist Service Discharge Diagnoses Cash Tinoco??is a 61 year old??male who presented with complaints of??rt sided flank/rib pain. Medical history is notable for metastatic lung cancer, currently undergoing chemotherapy, recently dx'd pneumonia.?? Initial evaluation revealed low grade fever, hypoxia, tachycardia. Possible pneumonia, lytic bony metastatic disease.?? Initial treatment included normal saline, tylenol, zosyn, morphine. ? 02/08 : ?? Clinically stable Discharge home today ? A/P: ? Rt sided chest/back/flank pain Likely related to metastatic disease Will increase oral oxycodone IV dilaudid prn Pain management consulted stable ? Acute respiratory failure with hypoxia ?? Possible pneumonia, health care associated Continue zosyn, azithromycin Follow blood cultures, sputum culture Seems to be a reactive component, will order DuoNebs 4 times daily Consider adding steroids if slow to improve, patient reports adverse effect from steroids?? Clinically improved, discharged on oral levaquin - will complete 7 days antibiotic course, not needing oxygen at discharge ? Metastatic lung cancer Getting chemotherapy, radiation at [facility] Having some slight diarrhea from chemotherapy Monitor for excessive watery stools Discussed that patient could meet with palliative care within the [facility] system for ongoing symptom management and goals of care discussion. ?? Clinically Significant Risk Factors Present on Admission ? # Hypoalbuminemia: Albumin = 2.3 g/dL (Ref range: 3.5 - 5.0 g/dL) on admission, will monitor as appropriate?? # Coagulation Defect:??home medication list includes an anticoagulant medication? # Overweight:??Estimated body mass index is 27.46 kg/m?? as calculated from the following: ?Height as of this encounter: 1.651 m (5' 5). ?Weight as of this encounter: 74.8 kg (165 lb). ?? Follow-ups Needed After Discharge Follow-up Appointments Follow-up and recommended labs and tests Follow up with primary care provider, HAKEEM CUNNINGHAM, within 7 days for hospital follow- up. No follow up labs or test are needed. Follow up with Oncology As advised {Additional follow-up instructions/to-do's for PCP : none Unresulted Labs Ordered in the Past 30 Days of this Admission No orders found from 01/07/2022 to 02/07/2022. These results will be followed up by pcp Discharge Disposition Discharged to home Condition at discharge: Stable Consultations This Hospital Stay CARE MANAGEMENT / SOCIAL WORK IP CONSULT PAIN MANAGEMENT ADULT IP CONSULT PALLIATIVE CARE ADULT IP CONSULT Code Status Prior Time Spent on this Encounter I, Steph Lott MD, personally saw the patient today and spent greater than 30 minutes dischargingthis patient. Steph Lott MD [address] [address] Physical Exam Vital Signs: Weight: 165 lbs 0 oz GENERAL: The patient is not in any acute distressed. Awake and alert. HEENT: Nonicteric sclerae, PERRLA, EOMI. Oropharynx clear. Moist mucous membranes. Conjunctivae appear well perfused. HEART: Regular rate and rhythm without murmurs. LUNGS: Clear to auscultation bilaterally. No wheezing or crackles. ABDOMEN: Soft, positive bowel sounds, nontender. SKIN: No rash, no excessive bruising, petechiae, or purpura. EXTREMITIES : no rashes, no swelling in legs. NEUROLOGIC: conscious and oriented, follows commands, no obvious focal deficits. ROS: All other systems negative Primary Care Physician HAKEEM CUNNINGHAM Discharge Orders Reason for your hospital stay Sob, cough Follow-up and recommended labs and tests Follow up with primary care provider, HAKEEM CUNNINGHAM, within 7 days for hospital follow- up. No follow up labs or test are needed. Follow up with Oncology As advised Activity Your activity upon discharge: activity as tolerated Diet Follow this diet upon discharge: Orders Placed This Encounter Room Service Combination Diet Regular Diet Adult Significant Results and Procedures Most Recent 3 CBC's:Recent Labs Lab Test 02/08/22 0623 02/06/22 2303 01/08/22 0536 01/07/22 1213 WBC 3.5* 5.7 -- 13.2* HGB 9.8* 10.7* 10.7* 12.0* MCV 91 91 -- 90 PLT 241 213 -- 417 Most Recent 3 BMP's:Recent Labs Lab Test 02/08/2262202/06/22230201/07/22 1213 NA 135* 133* -- POTASSIUM 3.9 3.9 4.3 CHLORIDE 102 100 -- CO2 22 25 -- BUN 17 24* -- CR 0.60* 0.57* 0.69* ANIONGAP 11 8 -- YEFRI 9.5 9.3 -- GLC 107 98 -- Most Recent 2 LFT's:Recent Labs Lab Test 02/08/2262202/06/222302 AST 14 14 ALT 19 21 ALKPHOS 106 122* BILITOTAL 0.3 0.5 Discharge Medications Discharge Medication List as of 02/08/2022 1:38 PM START taking these medications Details levofloxacin (LEVAQUIN) 750 MG tablet Take 1 tablet (750 mg) by mouth daily for 7 days, Disp-7 tablet, R-0, E-Prescribe CONTINUE these medications which have NOT CHANGED Details acetaminophen (TYLENOL) 325 MG tablet Take 2 tablets (650 mg) by mouth every 4 hours as needed for other (mild pain), Disp-60 tablet, R-0, Local Print albuterol (PROAIR HFA/PROVENTIL HFA/VENTOLIN HFA) 108 (90 Base) MCG/ACT inhaler Inhale 2 puffs into the lungs 4 times daily as needed, Historical abslzdv-iwwyjkldioccr-vcsuaufv (EXCEDRIN MIGRAINE) 250-250-65 MG tablet Take 1 tablet by mouth 2 times daily as needed LD 12/07, Historical colchicine (COLCYRS) 0.6 MG tablet Take 0.6 mg by mouth 2 times daily, Historical diltiazem ER (DILT-XR) 240 MG 24 hr ER beaded capsule Take 240 mg by mouth daily, Historical escitalopram (LEXAPRO) 10 MG tablet Take 10 mg by mouth daily, Historical folic acid (FOLVITE) 400 MCG tablet Take 400 mcg by mouth daily, Historical guaiFENesin-codeine (ROBITUSSIN AC) 100-10 MG/5ML solution Take 10 mLs by mouth 2 times daily as needed, Historical hydrOXYzine (ATARAX) 25 MG tablet Take 1 tablet (25 mg) by mouth every 6 hours as needed for itchingor anxiety (with pain, moderate pain), Disp-30 tablet, R-0, Local Print ipratropium - albuterol 0.5 mg/2.5 mg/3 mL (DUONEB) 0.5-2.5 (3) MG/3ML neb solution Inhale 3 mLs into the lungs 2 times daily as needed, Historical omeprazole (PRILOSEC) [address] capsule Take 40 mg by mouth daily, Historical ondansetron (ZOFRAN) 8 MG tablet Take 8 mg by mouth 2 times daily as needed, Historical oxyCODONE IR (ROXICODONE) 10 MG tablet Take 10-20 mg by mouth every 4 hours as needed for severe pain, Historical rivaroxaban ANTICOAGULANT (XARELTO) 10 MG TABS tablet Take 1 tablet (10 mg) by mouth daily, Disp-35 tablet, R-0, Local PrintFor DVT Prevention tadalafil (CIALIS) 20 MG tablet Take 20 mg by mouth daily as needed, Historical STOP taking these medications amoxicillin-clavulanate (AUGMENTIN) 875-125 MG tablet Comments: Reason for Stopping: Allergies No Known Allergies documented in this encounter Discharge Instructions Discharge InstructionsAva Diamond APRN POLICY CHECKER - 02/08/2022 1:33 PM CDT Pain Team Instructions - You were prescribed Oxycodone for pain. - Acetaminophen (Tylenol) may be used as needed for pain. Do not exceed more than 3000 mg of Tylenolper day in a 24 hour period. Many prescription pain medications contain Tylenol?? (acetaminophen), including Vicodin??, Tylenol #3??, [place]??, Lortab??, and Percocet??. You should not take any extra pills of Tylenol?? if you are using these prescription medications or you can get very sick. - Oral NSAIDs such as Ibuprofen, Advil, Aleve, Motrin, Celebrex, Meloxicam, Toradol should be avoided. Voltaren (Diclofenac) gel may be used on the skin topically 3-4 times daily on painful joints, back, chest wall. This is a topical NSAID and can be a safe alternative for those with cardiac, kidney, or liver disease, bleeding disorders, GI ulcers, GI bleeding, or taking blood thinning medication. This may be purchased over the counter. - Lidocaine ointment may be used up to 3-4 times daily on painful areas. If you do not want to use an ointment, lidocaine patches could be an alternative. You may wear up to 1-3 patches at a time. You should only use one lidocaine product, either a patch or an ointment, not both. Do not place lidocaine on red or open skin. Avoid heat over lidocaine due to risk of real. Patches may be used and on for12 hours and then remove and have off for 12 hours. Lidocaine can be purchased over the counter. Aspercreme or Salon Pas are common Lidocaine brands over the counter. - Store your medications in a safe and secure place. - Only take medications prescribed to you and only take them as directed by your doctor. Taking morethan the prescribed amount increases your risk for respiratory depression or . - Dispose of any unused medications in your home. Wfhv-jgs-psmztcv medications and prescription drugs can pollute yin and be harmful to humans, fish, and other wildlife when disposed of improperly -- do not flush medications down the toilet or place in the trash. Properly disposing of medicines is important to prevent abuse or poisoning and protect the environment. Prescription and ajht-nfe-xcnwdhi medications are collected anonymously from residents for free at [facility] drop-off locations usually located at your local police department. - Opioid pain medications can cause addiction. If you have a history of chemical dependency of any type, you are at a higher risk of becoming addicted to pain medications. Only take these prescribed medications to treat your pain when all other options have been tried. Take it for as short a time and as few doses as possible. Store your pain pills in a secure place, as they are frequently stolen and provide a dangerous opportunity for children or visitors in your house to start abusing these powerful medications. We will not replace any lost or stolen medicine. - As soon as your pain is better, you should seek out a drug take back program (see your local police department) to dispose of your extra medication. - Opioid medicines can make you drowsy or impaired. You must not drive, operate dangerous equipment,or engage in any other dangerous activities such as drinking alcohol or using illicit drugs while taking these medications. If you drive while taking these medications, you could be arrested for DUI, or driving under the influence. Do not drink any alcohol while you are taking these medications. - Opioids can have side effects of nausea, vomiting, constipation. Take your medication with food. - All opioids tend to cause constipation. Drink plenty of water and eat foods that have a lot of fiber, such as fruits, vegetables, prune juice, apple juice and high fiber cereal. Take a laxative if you don't move your bowels at least every other day. Miralax??, Milk of Magnesia, Colace??, or Senna?? can be used to keep you regular. You will likely need to continue stool softeners and stimulants while taking opioids. Call your Oncologist or Primary Care Provider if it has been greater than 3 days since your last bowel movement. - Follow up with Primary Care Provider, Oncology documented in this encounter Medications at Time [...] (90 daily as needed Base) MCG/ACT inhaler pjmajiy-uhumrvlyduiis-hkm Take 1 tablet by 0 feine (EXCEDRIN MIGRAINE) mouth 2 times daily 250-250-65 MG tablet as needed LD 12/07 colchicine (COLCYRS) 0.6 Take 0.6 mg by mouth 0 MG tablet 2 times daily diltiazem ER (DILT-XR) Take 240 mg by mouth 0 240 MG 24 hr ER beaded daily capsule escitalopram (LEXAPRO) 10 Take 10 mg by mouth 0 0 08/06/2021 MG tablet daily folic acid (FOLVITE) 400 Take 400 mcg by 0 2021 MCG tablet mouth daily guaiFENesin-codeine Take 10 mLs by mouth 0 2021 (ROBITUSSIN AC) 100-10 2 times daily as MG/5ML solution needed hydrOXYzine (ATARAX) 25 Take 1 tablet (25 30 tablet 0 01/07 MG tabletIndications: mg) by mouth every 6 Osteolytic lesion due to hours as needed for metastasis (H) itching or anxiety (with pain, moderate pain) ipratropium - albuterol Inhale 3 mLs into 0 11/23 0.5 mg/2.5 mg/3 mL the lungs 2 times (DUONEB) 0.5-2.5 (3) daily as needed MG/3ML neb solution omeprazole (PRILOSEC) 40 Take 40 mg by mouth [address] capsule daily ondansetron (ZOFRAN) 8 MG Take 8 mg by mouth 2 0 09/10/2021 tablet times daily as needed oxyCODONE IR (ROXICODONE) Take 10-20 mg by 0 10 MG tablet mouth every 4 hours as needed for severe pain rivaroxaban ANTICOAGULANT Take 1 tablet (10 35 tablet 0 (XARELTO) 10 MG TABS mg) by mouth daily tabletIndications: 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 Tavo was diagnosed with lung cancer in August. He is hoping that treatment will give him more time, but he also knows that his time may be more limited. He has started to have conversations with his Christiano and 5 children. 2 of his kids are open to talking about his diagnosis while the other 3 are not wanting to talk about this topic. Gave him a blank HCD and he shared that my and I have been meaning to complete this. He is coping well overall and has good support. He said, I know I'll be ok but I worry more about my family when I am gone. Provided active listening, validation of feelings and emotional support. Plan is for Gene to discharge home this afternoon. No follow up necessary. Megan Finn LIQUID SUGAR MELTER Palliative Care Office # [phone] Rosette Balderas RN - 02/08/2022 1:35 PM CDT Care Management Discharge Note Discharge Date: 02/08/2022 Discharge Disposition: home Discharge Services: none Discharge Transportation: family Education Provided on the Discharge Plan: AVS per bedside RN. Persons Notified of Discharge Plans: patient Patient/Family in Agreement with the Plan: yes Additional Information: Chart reviewed. Patient in droplet precautions. Patient will be discharge per bedside RN. Rosette Balderas RN Tarah Harris RT - 02/08/2022 6:20 AM CDT Pt received scheduled nebulizer treatment. Tolerated well, on 2L NC. Breath sounds are coarse crackles pre/post. Will continue to follow as needed. Steph Lott MD - 02/07/2022 1:06 PM CDT POST MIDNIGHT ADMISSION : Cash Tinoco is a 61 year old male who presented with complaints of rt sided flank/rib pain. Medical history is notable for metastatic lung cancer, currently undergoing chemotherapy, recently dx'd pneumonia. Initial evaluation revealed low grade fever, hypoxia, tachycardia. Possible pneumonia, lytic bony metastatic disease. Initial treatment included normal saline, tylenol, zosyn, morphine. 02/07 : On 2 liters of oxygen - not using oxygen at home Continue nebs, iv antibiotics - azithromycin, zosyn Echo ordered Still having pain around chest Consult pain management Started lidocaine patch Consulted palliative care to determine goals of care Not medically ready for discharge at this time. Another 1-2 days to discharge A/P: Rt sided chest/back/flank pain Likely related to metastatic disease Will increase oral oxycodone IV dilaudid prn ?? Acute respiratory failure with hypoxia Possible pneumonia Continue zosyn, azithromycin Follow blood cultures, sputum culture Seems to be a reactive component, will order DuoNebs 4 times daily Consider adding steroids if slow to improve, patient reports adverse effect from steroids ?? Metastatic lung cancer Getting chemotherapy, radiation at [facility] Having some slight diarrhea from chemotherapy Monitor for excessive watery stools ?? Clinically Significant Risk Factors Present on Admission ?? # Hypoalbuminemia: Albumin = 2.3 g/dL (Ref range: 3.5 - 5.0 g/dL) on admission, will monitor as appropriate # Coagulation Defect: home medication list includes an anticoagulant medication # Overweight: Estimated body mass index is 27.46 kg/m?? as calculated from the following: Height as of this encounter: 1.651 m (5' 5). Weight as of this encounter: 74.8 kg (165 lb). Nikki Ackerman RN - 02/07/2022 12:30 PM CDT Report given to Francie PITTMAN. documented in this encounter H&P Notes Los Del Real DO - 02/07/2022 1:47 AM CDT [facility] ADMISSION HISTORY AND PHYSICAL Assessment & Plan Cash Tinoco is a 61 year old male who presented with complaints of rt sided flank/rib pain. Medical history is notable for metastatic lung cancer, currently undergoing chemotherapy, recently dx'd pneumonia. Initial evaluation revealed low grade fever, hypoxia, tachycardia. Possible pneumonia, lytic bony metastatic disease. Initial treatment included normal saline, tylenol, zosyn, morphine. A/P: Rt sided chest/back/flank pain Likely related to metastatic disease Will increase oral oxycodone IV dilaudid prn Acute respiratory failure with hypoxia Possible pneumonia Continue zosyn, azithromycin Follow blood cultures, sputum culture Seems to be a reactive component, will order DuoNebs 4 times daily Consider adding steroids if slow to improve, patient reports adverse effect from steroids Metastatic lung cancer Getting chemotherapy, radiation at [facility] Having some slight diarrhea from chemotherapy Monitor for excessive watery stools Clinically Significant Risk Factors Present on Admission # Hypoalbuminemia: Albumin = 2.3 g/dL (Ref range: 3.5 - 5.0 g/dL) on admission, will monitor as appropriate # Coagulation Defect: home medication list includes an anticoagulant medication # Overweight: Estimated body mass index is 27.46 kg/m?? as calculated from the following: Height as of this encounter: 1.651 m (5' 5). Weight as of this encounter: 74.8 kg (165 lb). DVTP: Lovenox prophylactic dose Code Status: Full Code Disposition: Inpatient Expected LOS: 2 days Goals for the hospitalization: pain control, improvement in breathing Diet: regular Fluids: Normal saline at 100/h Disposition Plan Expected Discharge Date: 02/09/2022 Chief Complaint cough, chest pain HISTORY Cash Tinoco is a 61 year old male who presented with complaints of cough and chest pain. Wasrecently diagnosed with pneumonia as an outpatient. Has been on azithromycin and Augmentin for about5 days. Symptoms not really getting any better. No nausea or vomiting but he has had some diarrhea. Has about 3 or 4 loose stools a day. No hematemesis, melena, hematochezia. No urinary complaints. No significant lower extremity edema. Says that he takes Decadron around chemotherapy days and says thathe feels horrible when he is on Decadron. Past Medical History Past Medical History: No date: Cancer (H) Surgical History Past Surgical History: Procedure Laterality Date ??? OPEN REDUCTION INTERNAL FIXATION HIP NAILING Right 01/07/2022 Procedure: PROPHYLACTIC INTRAMEDULLARY NAILING OF RIGHT HIP; Surgeon: Wayne Humphries MD; Location: [facility] Main OR Family History No family history on file. Social History Social History Tobacco Use ??? Smoking status: Former ??? Smokeless tobacco: Never Substance Use Topics ??? Alcohol use: Yes ??? Drug use: Never Allergies No Known Allergies Prior to Admission Medications Prior to Admission Medications Prescriptions Last Dose Informant Patient Reported? Taking? acetaminophen (TYLENOL) 325 MG tablet No No Sig: Take 2 tablets (650 mg) by mouth every 4 hours as needed for other (mild pain) albuterol (PROAIR HFA/PROVENTIL HFA/VENTOLIN HFA) 108 (90 Base) MCG/ACT inhaler Yes No Sig: Inhale 2 puffs into the lungs 4 times daily as needed ytzqqfk-paqiujklshfas-lquhnchb (EXCEDRIN MIGRAINE) 250-250-65 MG tablet Yes No Sig: Take 1 tablet by mouth 2 times daily as needed LD 12/07 celecoxib (CELEBREX) 200 MG capsule No No Sig: Take 1 capsule (200 mg) by mouth daily for 14 days Do not take within 6 hours of ibuprofen (MOTRIN, ADVIL) or ketorolac (TORADOL) if prescribed. diltiazem ER (DILT-XR) 240 MG 24 hr ER beaded capsule Yes No Sig: Take 240 mg by mouth daily escitalopram (LEXAPRO) 10 MG tablet Yes No Sig: Take 10 mg by mouth daily folic acid (FOLVITE) 400 MCG tablet Yes No Sig: Take 400 mcg by mouth daily guaiFENesin-codeine (ROBITUSSIN AC) 100-10 MG/5ML solution Yes No Sig: Take 10 mLs by mouth 2 times daily as needed hydrOXYzine (ATARAX) 25 MG tablet No No Sig: Take 1 tablet (25 mg) by mouth every 6 hours as needed for itching or anxiety (with pain, moderate pain) ipratropium - albuterol 0.5 mg/2.5 mg/3 mL (DUONEB) 0.5-2.5 (3) MG/3ML neb solution Yes No Sig: Inhale 3 mLs into the lungs 2 times daily as needed omeprazole (PRILOSEC) [address] capsule Yes No Sig: Take 40 mg by mouth daily ondansetron (ZOFRAN) 8 MG tablet Yes No Sig: Take 8 mg by mouth 2 times daily as needed oxyCODONE (ROXICODONE) 5 MG tablet No No Sig: Take 1-2 tablets (5-10 mg) by mouth every 6 hours as needed for moderate to severe pain polyethylene glycol (MIRALAX) 17 g packet No No Sig: Take 17 g by mouth daily rivaroxaban ANTICOAGULANT (XARELTO) 10 MG TABS tablet No No Sig: Take 1 tablet (10 mg) by mouth daily senna-docusate (SENOKOT-S/PERICOLACE) 8.6-50 MG tablet No No Sig: Take 1-2 tablets by mouth 2 times daily Take while on oral narcotics to prevent or treat constipation. tadalafil (CIALIS) 20 MG tablet Yes No Sig: Take 20 mg by mouth daily as needed Facility-Administered Medications: None Review of Systems A 12 point comprehensive review of systems was negative except as noted above in HPI. PHYSICAL EXAMINATION Vitals Temp: [99.6 ??F (37.6 ??C)] 99.6 ??F (37.6 ??C) Pulse: [94-112] 94 Resp: [24] 24 BP: (108-132)/(64-101) 115/73 SpO2: [91 %-95 %] 93 % Examination Physical Exam: Gen: no acute distress, slightly drowsy ENT: no scleral icterus Pulm: lungs are diminished with soft end expiratory wheezing, no retractions CV: regular rate and rhythm, no significant lower extremity pitting edema GI: abdomen is soft, non-tender, non-distended with active bowel sounds. MSK: no obvious deformities of the extremities Derm: Not pale, no jaundice Psych: appropriate affect Pertinent Radiology Radiology Results: Recent Results (from the past 24 hour(s)) CT Chest Pulmonary Embolism w Contrast Narrative EXAM: CT ABDOMEN PELVIS W CONTRAST, CT CHEST PULMONARY EMBOLISM W CONTRAST LOCATION: [facility] DATE/TIME: 02/07/2022 12:22 AM INDICATION: Right chest and flank pain. COMPARISON: CT chest 11/17/2021. PET/CT 08/13/2021. Abdominal ultrasound 01/16/2019. TECHNIQUE: CT chest pulmonary angiogram and routine CT abdomen pelvis with IV contrast. Arterial phase through the chest and venous phase through the abdomen and pelvis. Multiplanar reformats and MIP reconstructions were performed. Dose reduction techniques were used. CONTRAST: Isovue 370 100ml FINDINGS: ANGIOGRAM CHEST: No pulmonary embolus. No aortic dissection or aneurysm. LUNGS AND PLEURA: The right hilar neoplasm appears to have decreased in size from 11/17/2021 although is difficult to measure given contiguous collapse of the right middle lobe. As before, the mass encases and attenuates bronchi and pulmonary vessels of the right middle lobe more than right lower lobe. Patchy and nodular consolidation in both lower lobes and left upper lobe has worsened from 11/17/2021. Nodularity in the right upper lobe has improved from the prior study. Small right pleural effusion. MEDIASTINUM/AXILLAE: Mediastinal lymphadenopathy has improved from 11/17/2021. For example, a right paratracheal lymph node which was previously 2.5 x 2.1 cm is now 1.5 x 1.2 cm (image 95 of series 4).However, left hilar lymphadenopathy has newly developed with the largest node now measuring 1.9 x 1.5 cm (image 134 of series 4). CORONARY ARTERY CALCIFICATION: Moderate. HEPATOBILIARY: Normal. PANCREAS: Normal. SPLEEN: Normal. ADRENAL GLANDS: Normal. KIDNEYS/BLADDER: Stable 1.7 cm hyperdense cortical lesion of the upper pole of the right kidney probably a benign hyperdense cyst. Additional small benign cysts of both kidneys do not warrant follow-up. BOWEL: Normal. LYMPH NODES: Normal. VASCULATURE: Unremarkable. PELVIC ORGANS: Normal. MUSCULOSKELETAL: A destructive lytic and soft tissue mass of the left scapula has enlarged and now measures about 3.0 cm, previously 1.2 cm on 11/17/2021 (image 51 of series 4). A similar lesion measuring 2.9 cm which destroys the left posterior 12th rib was not included in the [id number] on 11/17/2021 but is new from PET/CT 08/13/2021 (image 75 of series 5). A new 15 mm nodule has developed in the subcutaneous fat of the back slightly to the rightof midline at the T11 level (image 225 of series 4). Post-ORIF of the proximal right femur incompletely imaged. Posterior and interbody fusion at L2-L3. Impression IMPRESSION: 1. No pulmonary embolus. 2. Right hilar neoplasm appears to have mildly decreased in size from 11/17/2021 although is difficult to measure given contiguous collapse of the right middle lobe. As before, the mass encases and attenuates airways and pulmonary vessels of the right middle lobe more than right lower lobe. 3. Patchy and nodular consolidation in both lower lobes and left upper lobe has worsened from 11/17/2021. This may be on the basis of infection and/or metastatic disease. Nodularity of the right upper lobe has improved from the prior study. 4. Small right pleural effusion. 5. Interval improvement in metastatic mediastinal lymphadenopathy. 6. Development of left hilar lymphadenopathy which may be metastatic or reactive. 7. 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 8. 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 9. Additional 15 mm nodule in the subcutaneous fat of the back slightly to the right of midline at T11 level is probably a metastasis. CT Abdomen Pelvis w Contrast Narrative EXAM: CT ABDOMEN PELVIS W CONTRAST, CT CHEST PULMONARY EMBOLISM W CONTRAST LOCATION: [facility] DATE/TIME: 02/07/2022 12:22 AM INDICATION: Right chest and flank pain. COMPARISON: CT chest 11/17/2021. PET/CT 08/13/2021. Abdominal ultrasound 01/16/2019. TECHNIQUE: CT chest pulmonary angiogram and routine CT abdomen pelvis with IV contrast. Arterial phase through the chest and venous phase through the abdomen and pelvis. Multiplanar reformats and MIP reconstructions were performed. Dose reduction techniques were used. CONTRAST: Isovue 370 100ml FINDINGS: ANGIOGRAM CHEST: No pulmonary embolus. No aortic dissection or aneurysm. LUNGS AND PLEURA: The right hilar neoplasm appears to have decreased in size from 11/17/2021 although is difficult to measure given contiguous collapse of the right middle lobe. As before, the mass encases and attenuates bronchi and pulmonary vessels of the right middle lobe more than right lower lobe. Patchy and nodular consolidation in both lower lobes and left upper lobe has worsened from 11/17/2021. Nodularity in the right upper lobe has improved from the prior study. Small right pleural effusion. MEDIASTINUM/AXILLAE: Mediastinal lymphadenopathy has improved from 11/17/2021. For example, a right paratracheal lymph node which was previously 2.5 x 2.1 cm is now 1.5 x 1.2 cm (image 95 of series 4).However, left hilar lymphadenopathy has newly developed with the largest node now measuring 1.9 x 1.5 cm (image 134 of series 4). CORONARY ARTERY CALCIFICATION: Moderate. HEPATOBILIARY: Normal. PANCREAS: Normal. SPLEEN: Normal. ADRENAL GLANDS: Normal. KIDNEYS/BLADDER: Stable 1.7 cm hyperdense cortical lesion of the upper pole of the right kidney probably a benign hyperdense cyst. Additional small benign cysts of both kidneys do not warrant follow-up. BOWEL: Normal. LYMPH NODES: Normal. VASCULATURE: Unremarkable. PELVIC ORGANS: Normal. MUSCULOSKELETAL: A destructive lytic and soft tissue mass of the left scapula has enlarged and now measures about 3.0 cm, previously 1.2 cm on 11/17/2021 (image 51 of series 4). A similar lesion measuring 2.9 cm which destroys the left posterior 12th rib was not included in the [id number] on 11/17/2021 but is new from PET/CT 08/13/2021 (image 75 of series 5). A new 15 mm nodule has developed in the subcutaneous fat of the back slightly to the rightof midline at the T11 level (image 225 of series 4). Post-ORIF of the proximal right femur incompletely imaged. Posterior and interbody fusion at L2-L3. Impression IMPRESSION: 1. No pulmonary embolus. 2. Right hilar neoplasm appears to have mildly decreased in size from 11/17/2021 although is difficult to measure given contiguous collapse of the right middle lobe. As before, the mass encases and attenuates airways and pulmonary vessels of the right middle lobe more than right lower lobe. 3. Patchy and nodular consolidation in both lower lobes and left upper lobe has worsened from 11/17/2021. This may be on the basis of infection and/or metastatic disease. Nodularity of the right upper lobe has improved from the prior study. 4. Small right pleural effusion. 5. Interval improvement in metastatic mediastinal lymphadenopathy. 6. Development of left hilar lymphadenopathy which may be metastatic or reactive. 7. 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 8. 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 9. Additional 15 mm nodule in the subcutaneous fat of the back slightly to the right of midline at T11 level is probably a metastasis. Advance Care Planning [place] DO Hospitalist [facility] Phone: #[phone] documented in this encounter Consult Notes Ava Diamond APRN POLICY CHECKER - 02/08/2022 11:40 AM CDT [facility] ACUTE PAIN SERVICE CONSULTATION Date of Admission: 02/06/2022 Date of Consult (When I saw the patient): 02/08/22 Physician requesting consult: Jason Suero Reason for consult: acute on chronic chest pain, h/o cancer Primary Care Physician: Hakeem Cunningham Assessment/Plan: Cash Tinoco is a 61 year old male who was admitted on 02/06/2022. Pain team was asked to seethe patient for acute on chronic chest pain, h/o cancer on chronic opioids. Admitted for pneumonia. History of metastatic lung cancer, currently undergoing chemotherapy, recently diagnosed with pneumonia.??Describes pain as 6-9/10 and aching. Chronic pain is located in the hips, shoulders. Acute pain is located in the right lower chest wall and is exacerbated by coughing. The patient denies nausea, vomiting, constipation, diarrhea. He reports cough and shortness of breath. Diet is regular. The patient does no longer smoke and denies chemical dependency history. Opioid Induced Respiratory Depression Risk Assessment:?high. Age, pulmonary function Plans for discharge, pain team will sign off PLAN: 1) Pain is consistent with acute on chronic cancer pain, acute chest pain. Labs and imaging indicated: I have personally reviewed pertinent labs, tests, and radiologic imaging in patient's chart. Treatment plan includes multimodal pain approach, Hospital Medicine Service for medical management, Palliative care is consulted. Patient educated regarding multimodal pain approach, medications as listed below, reviewed discharge medications, discussed over the counter lidocaine and voltaren for pain. Patient is understanding of the plan. All questions and concerns addressed to patient's satisfaction. 2)Multimodal Medication Therapy Topical: lidocaine patch daily NSAID'S: CrCl 122. On Xarelto Muscle Relaxants: none Adjuvants: APAP PRN, Robitussin with Codeine Antidepressants/anxiolytics: Lexapro 10mg daily Opioids: oxycodone 10-20mg q4hprn (home med). IV Pain medication: Dilaudid 0.5mg q2hprn 3)Non-medication interventions: ice, heat, rest 4)Constipation Prophylaxis: none ordered - plans for discharge today 02/08/22, if not leaving will need ordered -Opioid prescriber has been Charan Burgos -[employer] pulled from system on 02/08. This indicates chronic oxycodone 10 oxycodone 10mg 20 for 4 d 01/26 oxycodone 37 for 3 d 01/26 oxycodone 8 for 1 d 01/22 oxycodone 5mg 20 for 5 d Many Oxycodone Rx since 12/29. Discharge Recommendations - We recommend prescribing the following at the time of discharge: home meds History of Present Illness (HPI): Cash Tinoco is a 61 year old old male who presented for chest pain , PNA. Past medical history as above. The pain is reported to be acute on chronic , located in the chest, hips, knees, shoulders. Current pain is rated at 6-9/10 and goal is 2-4/10. Per [place] [employer] review, the patient does have an opioid tolerance. Opioid induced side effects noted and include:none Reviewed medical record, labs, imaging, ED note, and care everywhere. Past pain treatments have included: diazpem, codeine cough syrup, hydrocodone, oxycodone Home pain medications/psych medications/anticoagulation medications include: oxycodone, APAP, Excedrin, Atarax, guaifenesin-codeine Last UDS: none recent Medical History PAST MEDICAL HISTORY: Past Medical History: Diagnosis Date ??? Cancer (H) PAST SURGICAL HISTORY: Past Surgical History: Procedure Laterality Date ??? OPEN REDUCTION INTERNAL FIXATION HIP NAILING Right 01/07/2022 Procedure: PROPHYLACTIC INTRAMEDULLARY NAILING OF RIGHT HIP; Surgeon: Wayne Humphries MD; Location: [facility] Main OR FAMILY HISTORY: No family history on file. SOCIAL HISTORY: Social History Tobacco Use ??? Smoking status: Former ??? Smokeless tobacco: Never Substance Use Topics ??? Alcohol use: Yes [employer] Tobacco: reports that he has quit smoking. He has never used smokeless tobacco. Alcohol: reports current alcohol use. Illicit drugs: reports no history of drug use. Allergies No Known Allergies Problem List Patient Active Problem List Diagnosis Date Noted ??? SIRS (systemic inflammatory response syndrome) (H) 02/07/2022 Priority: Medium ??? Acute respiratory failure with hypoxia (H) 02/07/2022 Priority: Medium ??? Malignant neoplasm of lung, unspecified laterality, unspecified part of lung (H) 02/07/2022 Priority: Medium ??? 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 acetaminophen (TYLENOL) 325 MG tablet Take 2 tablets (650 mg) by mouth every 4 hours as needed for other (mild pain) 60 tablet 0 PRN ??? albuterol (PROAIR HFA/PROVENTIL HFA/VENTOLIN HFA) 108 (90 Base) MCG/ACT inhaler Inhale 2 puffs into the lungs 4 times daily as needed 02/06/2022 at can bring ??? [] amoxicillin-clavulanate (AUGMENTIN) 875-125 MG tablet Take 1 tablet by mouth 2 times daily 02/06/2022 ??? chqzpbh-jaehmstswjshq-hmbmttan (EXCEDRIN MIGRAINE) 250-250-65 MG tablet Take 1 tablet by mouth 2times daily as needed LD 12/07 PRN ??? colchicine (COLCYRS) 0.6 MG tablet Take 0.6 mg by mouth 2 times daily 02/06/2022 ??? diltiazem ER (DILT-XR) 240 MG 24 hr ER beaded capsule Take 240 mg by mouth daily 02/06/2022 ??? escitalopram (LEXAPRO) 10 MG tablet Take 10 mg by mouth daily 02/06/2022 ??? folic acid (FOLVITE) 400 MCG tablet Take 400 mcg by mouth daily 02/06/2022 ??? guaiFENesin-codeine (ROBITUSSIN AC) 100-10 MG/5ML solution Take 10 mLs by mouth 2 times daily asneeded PRN ??? hydrOXYzine (ATARAX) 25 MG tablet Take 1 tablet (25 mg) by mouth every 6 hours as needed for itching or anxiety (with pain, moderate pain) 30 tablet 0 PRN ??? ipratropium - albuterol 0.5 mg/2.5 mg/3 mL (DUONEB) 0.5-2.5 (3) MG/3ML neb solution Inhale 3 mLsinto the lungs 2 times daily as needed Past Week ??? omeprazole (PRILOSEC) [address] capsule Take 40 mg by mouth daily 02/06/2022 ??? ondansetron (ZOFRAN) 8 MG tablet Take 8 mg by mouth 2 times daily as needed PRN ??? oxyCODONE IR (ROXICODONE) 10 MG tablet Take 10-20 mg by mouth every 4 hours as needed for severepain 02/06/2022 ??? rivaroxaban ANTICOAGULANT (XARELTO) 10 MG TABS tablet Take 1 tablet (10 mg) by mouth daily 35 tablet 0 02/06/2022 ??? tadalafil (CIALIS) 20 MG tablet Take 20 mg by mouth daily as needed PRN Review of Systems Complete ROS reviewed, unless noted in HPI, all other systems reviewed (with patient) and all othersfound to be negative. Objective: Physical Exam: BP 108/66 (BP Location: Left arm, Patient Position: Semi-Goodwin's) Pulse 69 Temp 97.5 ??F (36.4 ??C) (Oral) Resp 18 Ht 1.651 m (5' 5) Wt 74.8 kg (165 lb) SpO2 90% BMI 27.46 kg/m?? Weight: Vitals: 02/06/22 2210 Weight: 74.8 kg (165 lb) Body mass index is 27.46 kg/m??. General Appearance: Alert, cooperative, no distress Head: Normocephalic, without obvious abnormality, atraumatic Eyes: PERRL, conjunctiva/corneas clear, EOM's intact ENT/Throat: Lips, mucosa, and tongue normal; teeth and gums normal Lymph/Neck: Supple, symmetrical, trachea midline Lungs: Productive cough, NC O2 Chest Wall: No tenderness or deformity Abdomen: Soft, non-tender, bowel sounds active all four quadrants, no masses, no organomegaly Musculoskeletal: Extremities normal, atraumatic Skin: Skin warm, dry Neurologic: Alert and oriented X 3, Moves all 4 extremities Psych: Affect is appropriate Imaging: Reviewed I have personally reviewed pertinent labs, tests, and radiologic imaging in patient's chart. Echocardiogram Complete Result Date: 02/07/2022 [id number]^[place]EN^[place] [address] Name: CASH TINOCO : 1960 Study Date: 02/07/2022 01:33 PM Age:61 yrs Gender: Male Patient Location: [facility] Reason For Study: Chest Pain Ordering Physician: STEPH LOTT Performed By: PILY BSA: 1.8 m2 Height: 65 in Weight: 165 lb HR: 80 Procedure Complete Echo Adult. Definity ([facility] #[id number]) given intravenously. Interpretation Summary Left ventricular size, wall motion and function are normal. The ejection fraction is 55-60%. Normal right ventricle size and systolic function. The left atrium is mildly dilated. No obvious valvular disease. No previous study for comparison. I WMSI = 1.00 % Normal = 100 X - Cannot 0 - (2) - Mildly 2 - Segments Size Interpret Hyperkinetic 1 - Normal Hypokinetic Hypokinetic 1-2 small 7 - 3-5 moderate 3 - Akinetic 4 - 5 - 6 - Akinetic Dyskinetic 6-14 large Dyskinetic Aneurysmal w/scar w/scar 15-16diffuse Left Ventricle Left ventricular size, wall motion and function are normal. The ejection fraction is 55-60%. There is normal left ventricular wall thickness. Grade I or early diastolic dysfunction. Normal left ventricular wall motion. Right Ventricle Normal right ventricle size and systolic function. Atria The left atrium is mildly dilated. Right atrial size is normal. There is no atrial shuntseen. Mitral Valve Mitral valve leaflets appear normal. There is no evidence of mitral stenosis or clinically significant mitral regurgitation. Tricuspid Valve Tricuspid valve leaflets appear normal. There is no evidence of tricuspid stenosis or clinically significant tricuspid regurgitation. Aortic Va lve Aortic valve leaflets appear normal. There is no evidence of aortic stenosis or clinically significant aortic regurgitation. Pulmonic Valve The pulmonic valve is normal in structure and function. Vessels The aorta root is normal. IVC diameter <2.1 cm collapsing >50% with sniff suggests a normal RA pressure of 3 mmHg. Pericardium There is no pericardial effusion. Rhythm Sinus rhythm was noted. MMode/2D Measurements & Calculations IVSd: 1.3 cm LVIDd: 4.4 cm LVIDs: 2.7 cm LVPWd: 0.82 cm FS: 38.3 % LV mass(C)d:165.9 grams LV mass(C)dI: 91.0 grams/m2 Ao root diam: 3.5 cm LA dimension: 3.9 cm asc Aorta Diam: 3.7 cm LA/Ao: 1.1 LVOT diam: 2.3 cm LVOT area: 4.1 cm2 LA Volume Indexed (AL/bp): 35.0 ml/m2 RWT: 0.37 Time Measurements MM HR: 80.0 BPM Doppler Measurements & Calculations MV E max edilia: 81.0 cm/sec MV A max edilia: 94.0 cm/sec MV E/A: 0.86 MV dec slope: 502.6 cm/sec2 MV dec time: 0.16 sec Ao V2 max: 156.4 cm/sec Ao max P.0 mmHg Ao V2 mean: 114.3 cm/sec Ao mean P.9 mmHg Ao V2 VTI: 27.8 cm MANJULA(I,D): 4.0 cm2 MANJULA(V,D): 3.8 cm2 LV V1 max P.3 mmHg LV V1 max: 144.1 cm/sec LV V1 VTI: 27.0 cm SV(LVOT): 110.7 ml SI(LVOT): 60.8 ml/m2 PA acc time: 0.11 sec TR max edilia: 257.9 cm/sec TR max P.6 mmHg AV Edilia Ratio (DI): 0.92 MANJULA Index (cm2/m2): 2.2 E/E': 14.0 E/E' av.8 Lateral E/e': 9.5 Medial E/e': 14.0 Peak E' Edilia: 5.8 cm/sec Report approved by: Christiana Ford 02/08/2022 08:[address] Abdomen Pelvis w Contrast Result Date: 02/07/2022 EXAM: CT ABDOMEN PELVIS W CONTRAST, CT CHEST PULMONARY EMBOLISM W CONTRAST LOCATION: [facility] DATE/TIME: 02/07/2022 12:22 AM INDICATION: Right chest and flank pain. COMPARISON: CT chest 11/17/2021. PET/CT 08/13/2021. Abdominal ultrasound 01/16/2019. TECHNIQUE: CT chest pulmonary angiogram and routine CT abdomen pelvis with IV contrast. Arterial phase through the chest and venous phase through the abdomen and pelvis. Multiplanar reformats and MIP reconstructions were performed. Dose reduction techniques were used. CONTRAST: Isovue 370 100ml FINDINGS: ANGIOGRAM CHEST: No pulmonary embolus. No aortic dissection or aneurysm. LUNGS AND PLEURA: The right hilar neoplasm appears to have decreased in size from 11/17/2021 although is difficult to measure given contiguous collapse of the right middle lobe. As before, the mass encases and attenuates bronchi and pulmonary vessels of the right middle lobe more than right lower lobe. Patchy and nodular consolidation in both lower lobes and left upper lobe has worsened from 11/17/2021. Nodularity in the right upper lobe has improved from the prior study. Small right pleural effusion. MEDIASTINUM/AXILLAE: Mediastinal lymphadenopathy has improved from 11/17/2021. For example, a right paratracheal lymph node which was previously 2.5x 2.1 cm is now 1.5 x 1.2 cm (image 95 of series 4). However, left hilar lymphadenopathy has newly developed with the largest node now measuring 1.9 x 1.5 cm (image 134 of series 4). CORONARY ARTERY CALCIFICATION: Moderate. HEPATOBILIARY: Normal. PANCREAS: Normal. SPLEEN: Normal. ADRENAL GLANDS: Normal. KIDNEYS/BLADDER: Stable 1.7 cm hyperdense cortical lesion of the upper pole of the right kidney probably a benign hyperdense cyst. Additional small benign cysts of both kidneys do not warrant follow-up. BOWEL: Normal. LYMPH NODES: Normal. VASCULATURE: Unremarkable. PELVIC ORGANS: Normal. MUSCULOSKELETAL: A destructive lytic and soft tissue mass of the left scapula has enlarged and now measures about 3.0 cm, previously 1.2 cm on 11/17/2021 (image 51 of series 4). A similar lesion measuring 2.9 cm which destroys the left posterior 12th rib was not included in the [id number] on 11/17/2021 but is new from PET/CT 08/13/2021 (image 75 of series 5). A new 15 mm nodule has developed in the subcutaneous fat of the back slightly to the right of midline at the T11 level (image 225 of series 4). Post-ORIF of the proximal right femur incompletely imaged. Posterior and interbody fusion at L2-L3. IMPRESSION: 1. No pulmonary embolus. 2. Right hilar neoplasm appears to have mildly decreased in size from 11/17/2021 although is difficult to measure given contiguous collapse of the right middle lobe. As before, the mass encases and attenuates airways and pulmonary vessels of the right middle lobe more than right lower lobe. 3. Patchy and nodular consolidation in both lower lobes and left upper lobe has worsened from 11/17/2021. This may be on the basis of infection and/or metastatic disease. Nodularity of the right upper lobe has improved from the prior study. 4. Small right pleural effusion. 5.Interval improvement in metastatic mediastinal lymphadenopathy. 6. Development of left hilar lymphadenopathy which may be metastatic or reactive. 7. Worsening lytic metastasis destroys a portion of theleft scapula. 8. 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 9. Additional 15 mm nodule in the subcutaneous fat of the back slightly to the right of midline at T11 level is probably a metastasis. CT Chest Pulmonary Embolism w Contrast Result Date: 02/07/2022 EXAM: CT ABDOMEN PELVIS W CONTRAST, CT CHEST PULMONARY EMBOLISM W CONTRAST LOCATION: [facility] DATE/TIME: 02/07/2022 12:22 AM INDICATION: Right chest and flank pain. COMPARISON: CT chest 11/17/2021. PET/CT 08/13/2021. Abdominal ultrasound 01/16/2019. TECHNIQUE: CT chest pulmonary angiogram and routine CT abdomen pelvis with IV contrast. Arterial phase through the chest and venous phase through the abdomen and pelvis. Multiplanar reformats and MIP reconstructions were performed. Dose reduction techniques were used. CONTRAST: Isovue 370 100ml FINDINGS: ANGIOGRAM CHEST: No pulmonary embolus. No aortic dissection or aneurysm. LUNGS AND PLEURA: The right hilar neoplasm appears to have decreased in size from 11/17/2021 although is difficult to measure given contiguous collapse of the right middle lobe. As before, the mass encases and attenuates bronchi and pulmonary vessels of the right middle lobe more than right lower lobe. Patchy and nodular consolidation in both lower lobes and left upper lobe has worsened from 11/17/2021. Nodularity in the right upper lobe has improved from the prior study. Small right pleural effusion. MEDIASTINUM/AXILLAE: Mediastinal lymphadenopathy has improved from 11/17/2021. For example, a right paratracheal lymph node which was previously 2.5x 2.1 cm is now 1.5 x 1.2 cm (image 95 of series 4). However, left hilar lymphadenopathy has newly developed with the largest node now measuring 1.9 x 1.5 cm (image 134 of series 4). CORONARY ARTERY CALCIFICATION: Moderate. HEPATOBILIARY: Normal. PANCREAS: Normal. SPLEEN: Normal. ADRENAL GLANDS: Normal. KIDNEYS/BLADDER: Stable 1.7 cm hyperdense cortical lesion of the upper pole of the right kidney probably a benign hyperdense cyst. Additional small benign cysts of both kidneys do not warrant follow-up. BOWEL: Normal. LYMPH NODES: Normal. VASCULATURE: Unremarkable. PELVIC ORGANS: Normal. MUSCULOSKELETAL: A destructive lytic and soft tissue mass of the left scapula has enlarged and now measures about 3.0 cm, previously 1.2 cm on 11/17/2021 (image 51 of series 4). A similar lesion measuring 2.9 cm which destroys the left posterior 12th rib was not included in the [id number] on 11/17/2021 but is new from PET/CT 08/13/2021 (image 75 of series 5). A new 15 mm nodule has developed in the subcutaneous fat of the back slightly to the right of midline at the T11 level (image 225 of series 4). Post-ORIF of the proximal right femur incompletely imaged. Posterior and interbody fusion at L2-L3. IMPRESSION: 1. No pulmonary embolus. 2. Right hilar neoplasm appears to have mildly decreased in size from 11/17/2021 although is difficult to measure given contiguous collapse of the right middle lobe. As before, the mass encases and attenuates airways and pulmonary vessels of the right middle lobe more than right lower lobe. 3. Patchy and nodular consolidation in both lower lobes and left upper lobe has worsened from 11/17/2021. This may be on the basis of infection and/or metastatic disease. Nodularity of the right upper lobe has improved from the prior study. 4. Small right pleural effusion. 5.Interval improvement in metastatic mediastinal lymphadenopathy. 6. Development of left hilar lymphadenopathy which may be metastatic or reactive. 7. Worsening lytic metastasis destroys a portion of theleft scapula. 8. 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 9. Additional 15 mm nodule in the subcutaneous fat of the back slightly to the right of midline at T11 level is probably a metastasis. Labs: Reviewed I have personally reviewed pertinent labs, tests, and radiologic imaging in patient'schart. Recent Results (from the past 24 hour(s)) Echocardiogram Complete Collection Time: 02/07/22 2:39 PM Result Value Ref Range LVEF 55-60% CBC with platelets Collection Time: 02/08/22 6:23 AM Result Value Ref Range WBC Count 3.5 (L) 4.0 - 11.0 10e3/uL RBC Count 3.39 (L) 4.40 - 5.90 10e6/uL Hemoglobin 9.8 (L) 13.3 - 17.7 g/dL Hematocrit 30.7 (L) 40.0 - 53.0 % MCV 91 78 - 100 fL MCH 28.9 26.5 - 33.0 pg MCHC 31.9 31.5 - 36.5 g/dL RDW 14.7 10.0 - 15.0 % Platelet Count 241 150 - 450 10e3/uL Comprehensive metabolic panel Collection Time: 02/08/22 6:23 AM Result Value Ref Range Sodium 135 (L) 136 - 145 mmol/L Potassium 3.9 3.5 - 5.0 mmol/L Chloride 102 98 - 107 mmol/L Carbon Dioxide (CO2) 22 22 - 31 mmol/L Anion Gap 11 5 - 18 mmol/L Urea Nitrogen 17 8 - 22 mg/dL Creatinine 0.60 (L) 0.70 - 1.30 mg/dL Calcium 9.5 8.5 - 10.5 mg/dL Glucose 107 70 - 125 mg/dL Alkaline Phosphatase 106 45 - 120 U/L AST 14 0 - 40 U/L ALT 19 0 - 45 U/L Protein Total 5.7 (L) 6.0 - 8.0 g/dL Albumin 2.0 (L) 3.5 - 5.0 g/dL Bilirubin Total 0.3 0.0 - 1.0 mg/dL GFR Estimate >90 >60 mL/min/1.73m2 Total time spent 82 minutes with greater than 50% in consultation, education and coordination of care. Also discussed with RN, , pharmacist. Thank you for this consultation. Ava Diamond APRN, KITCHEN CLERK-C Acute Care Pain Management Program [facility] ([facility]) Tuesday-Tuesday 8a-4p Page via online [employer] system or call [phone] Adriana Shaw CNS - 02/08/2022 8:30 AM CDTAssociated Order(s): PALLIATIVE CARE ADULT IP CONSULT [facility] Palliative Care Consultation Note Patient: Cash Tinoco Date of Admission: 02/06/2022 Requesting Clinician / Team: Dr. Lott Reason for consult: Goals of care Code status: Full Code Impression & Recommendations: SYMPTOM ASSESSMENT Palliative Care is not managing symptoms of their patient. ADVANCED CARE PLANNING - No HCD or POLST documents completed. Blank copy of honoring choices document provided to patient. Reviewed the role and function of this document and that healthcare wishes and decision makers can be identified here. - Surrogate decision maker: , Christiano Tinoco. GOALS OF CARE DISCUSSION - Continue current cares and treatment with [facility]. - Discussed that patient could meet with palliative care within the [facility] system for ongoing symptom management and goals of care discussion. ?? Thank you for the opportunity to participate in the care of this patient and family. Our team: does not plan on following further, however do not hesitate to call or re-consult if we can be of further assistance to the patient/family. ?? During regular M-F work hours -- if you are not sure who specifically to contact -- please contact us by calling us directly at the Palliative Care Main Line [phone] ?? After regular work hours and on weekends/holidays, you can leave a message at [phone] History of Present Illness: History gathered today from: patient, medical chart, outside records including Care Everywhere Cash Tinoco is a 61 year old male admitted to [facility] on 02/06/2022 with c/o right flank and rib pain. Patient has H metastatic lung cancer and undergoing Chemotherapy with carboplatin and Keytruda through [facility] in [place] patient is status post radiation treatment to right bronchus, left scapula and right femur. He has a past medical history also of rheumatoid arthritis, left inguinal hernia and prostate cancer. Prior to admission, patient had been treat for CAP with azithromycin and augmentin x5 days prior to admission. Today, the patient was seen for: Goals of care Prognosis, Goals, & Planning: ?? Functional Status just prior to hospitalization: 1 (Restricted in physically strenuous activity but ambulatory and able to carry out work of a light or sedentary nature) ?? Prognosis, Goals, and/or Advance Care Planning were addressed today: Yes Summary/Comments: Met inpatient room with patient and [facility] palliative care. Reviewed Palliative Care is specialized medical care for people with serious illness, focused on providing patients with relief from symptoms, pain and stresses of serious illness. The goal is to improve quality of life for both the patient and the family. Patient feels that overall he is coping quite well. He acknowledges that should cancer progress thathis time would be more limited. He is hopeful that treatments will suppress cancer growth and provide him with more time. He is working with his family to get healthcare and legal documents organized. Reports that of his 5 children, 2 are coping relatively well and the other 3 are avoidant of discussion of diagnosis. Reviewed the role of the honoring choices document as a means to identify decision makers and healthcare wishes when patient unable to make medical decisions for himself. He acknowledges that this needs to be completed. Blank copy provided to him for completion. ?? Patient's decision making preferences: independently ?? Patient has decision-making capacity today for complex decisions: Yes ?? I have concerns about the patient/family's health literacy today: No ?? Patient has a completed Health Care Directive: No. ?? Code status: Full Code Coping, Meaning, & Spirituality: Mood, coping, and/or meaning in the context of serious illness were addressed today: No [place] Symptom Data: # Pain severity the last 12 hours: low # Dyspnea severity the last 12 hours: low # Nausea severity the last 12 hours: none # Anxiety severity the last 12 hours: none ROS: Comprehensive ROS is reviewed and is negative except as here & per HPI. Past Medical History: Past Medical History: Diagnosis Date ??? Cancer (H) Past Surgical History: Past Surgical History: Procedure Laterality Date ??? OPEN REDUCTION INTERNAL FIXATION HIP NAILING Right 01/07/2022 Procedure: PROPHYLACTIC INTRAMEDULLARY NAILING OF RIGHT HIP; Surgeon: Wayne Humphries MD; Location: [facility] Main OR Family History: No family history on file. Social: ?? Living situation: lives with , Christiano. ?? [place] family / caregivers: , Christiano. Patient has 5 children. ?? Current in-home services: none Allergies: No Known Allergies Medications: I have reviewed this patient's medication profile and medications from this hospitalization. Lab Results: personally reviewed. Lab Results Component Value Date NA 135 02/08/2022 CO2 22 02/08/2022 BUN 17 02/08/2022 Lab Results Component Value Date WBC 3.5 02/08/2022 HGB 9.8 02/08/2022 HCT 30.7 02/08/2022 MCV 91 02/08/2022 PLT 241 02/08/2022 AST Date Value Ref Range Status 02/08/2022 14 0 - 40 U/L Final ALT Date Value Ref Range Status 02/08/2022 19 0 - 45 U/L Final Alkaline Phosphatase Date Value Ref Range Status 02/08/2022 106 45 - 120 U/L Final Albumin Date Value Ref Range Status 02/08/2022 2.0 (L) 3.5 - 5.0 g/dL Final RADIOLOGY: CT Abdomen Pelvis w Contrast Result Date: 02/07/2022 EXAM: CT ABDOMEN PELVIS W CONTRAST, CT CHEST PULMONARY EMBOLISM W CONTRAST LOCATION: [facility] DATE/TIME: 02/07/2022 12:22 AM INDICATION: Right chest and flank pain. COMPARISON: CT chest 11/17/2021. PET/CT 08/13/2021. Abdominal ultrasound 01/16/2019. TECHNIQUE: CT chest pulmonary angiogram and routine CT abdomen pelvis with IV contrast. Arterial phase through the chest and venous phase through the abdomen and pelvis. Multiplanar reformats and MIP reconstructions were performed. Dose reduction techniques were used. CONTRAST: Isovue 370 100ml FINDINGS: ANGIOGRAM CHEST: No pulmonary embolus. No aortic dissection or aneurysm. LUNGS AND PLEURA: The right hilar neoplasm appears to have decreased in size from 11/17/2021 although is difficult to measure given contiguous collapse of the right middle lobe. As before, the mass encases and attenuates bronchi and pulmonary vessels of the right middle lobe more than right lower lobe. Patchy and nodular consolidation in both lower lobes and left upper lobe has worsened from 11/17/2021. Nodularity in the right upper lobe has improved from the prior study. Small right pleural effusion. MEDIASTINUM/AXILLAE: Mediastinal lymphadenopathy has improved from 11/17/2021. For example, a right paratracheal lymph node which was previously 2.5x 2.1 cm is now 1.5 x 1.2 cm (image 95 of series 4). However, left hilar lymphadenopathy has newly developed with the largest node now measuring 1.9 x 1.5 cm (image 134 of series 4). CORONARY ARTERY CALCIFICATION: Moderate. HEPATOBILIARY: Normal. PANCREAS: Normal. SPLEEN: Normal. ADRENAL GLANDS: Normal. KIDNEYS/BLADDER: Stable 1.7 cm hyperdense cortical lesion of the upper pole of the right kidney probably a benign hyperdense cyst. Additional small benign cysts of both kidneys do not warrant follow-up. BOWEL: Normal. LYMPH NODES: Normal. VASCULATURE: Unremarkable. PELVIC ORGANS: Normal. MUSCULOSKELETAL: A destructive lytic and soft tissue mass of the left scapula has enlarged and now measures about 3.0 cm, previously 1.2 cm on 11/17/2021 (image 51 of series 4). A similar lesion measuring 2.9 cm which destroys the left posterior 12th rib was not included in the [id number] on 11/17/2021 but is new from PET/CT 08/13/2021 (image 75 of series 5). A new 15 mm nodule has developed in the subcutaneous fat of the back slightly to the right of midline at the T11 level (image 225 of series 4). Post-ORIF of the proximal right femur incompletely imaged. Posterior and interbody fusion at L2-L3. IMPRESSION: 1. No pulmonary embolus. 2. Right hilar neoplasm appears to have mildly decreased in size from 11/17/2021 although is difficult to measure given contiguous collapse of the right middle lobe. As before, the mass encases and attenuates airways and pulmonary vessels of the right middle lobe more than right lower lobe. 3. Patchy and nodular consolidation in both lower lobes and left upper lobe has worsened from 11/17/2021. This may be on the basis of infection and/or metastatic disease. Nodularity of the right upper lobe has improved from the prior study. 4. Small right pleural effusion. 5.Interval improvement in metastatic mediastinal lymphadenopathy. 6. Development of left hilar lymphadenopathy which may be metastatic or reactive. 7. Worsening lytic metastasis destroys a portion of theleft scapula. 8. 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 9. Additional 15 mm nodule in the subcutaneous fat of the back slightly to the right of midline at T11 level is probably a metastasis. CT Chest Pulmonary Embolism w Contrast Result Date: 02/07/2022 EXAM: CT ABDOMEN PELVIS W CONTRAST, CT CHEST PULMONARY EMBOLISM W CONTRAST LOCATION: [facility] DATE/TIME: 02/07/2022 12:22 AM INDICATION: Right chest and flank pain. COMPARISON: CT chest 11/17/2021. PET/CT 08/13/2021. Abdominal ultrasound 01/16/2019. TECHNIQUE: CT chest pulmonary angiogram and routine CT abdomen pelvis with IV contrast. Arterial phase through the chest and venous phase through the abdomen and pelvis. Multiplanar reformats and MIP reconstructions were performed. Dose reduction techniques were used. CONTRAST: Isovue 370 100ml FINDINGS: ANGIOGRAM CHEST: No pulmonary embolus. No aortic dissection or aneurysm. LUNGS AND PLEURA: The right hilar neoplasm appears to have decreased in size from 11/17/2021 although is difficult to measure given contiguous collapse of the right middle lobe. As before, the mass encases and attenuates bronchi and pulmonary vessels of the right middle lobe more than right lower lobe. Patchy and nodular consolidation in both lower lobes and left upper lobe has worsened from 11/17/2021. Nodularity in the right upper lobe has improved from the prior study. Small right pleural effusion. MEDIASTINUM/AXILLAE: Mediastinal lymphadenopathy has improved from 11/17/2021. For example, a right paratracheal lymph node which was previously 2.5x 2.1 cm is now 1.5 x 1.2 cm (image 95 of series 4). However, left hilar lymphadenopathy has newly developed with the largest node now measuring 1.9 x 1.5 cm (image 134 of series 4). CORONARY ARTERY CALCIFICATION: Moderate. HEPATOBILIARY: Normal. PANCREAS: Normal. SPLEEN: Normal. ADRENAL GLANDS: Normal. KIDNEYS/BLADDER: Stable 1.7 cm hyperdense cortical lesion of the upper pole of the right kidney probably a benign hyperdense cyst. Additional small benign cysts of both kidneys do not warrant follow-up. BOWEL: Normal. LYMPH NODES: Normal. VASCULATURE: Unremarkable. PELVIC ORGANS: Normal. MUSCULOSKELETAL: A destructive lytic and soft tissue mass of the left scapula has enlarged and now measures about 3.0 cm, previously 1.2 cm on 11/17/2021 (image 51 of series 4). A similar lesion measuring 2.9 cm which destroys the left posterior 12th rib was not included in the [id number] on 11/17/2021 but is new from PET/CT 08/13/2021 (image 75 of series 5). A new 15 mm nodule has developed in the subcutaneous fat of the back slightly to the right of midline at the T11 level (image 225 of series 4). Post-ORIF of the proximal right femur incompletely imaged. Posterior and interbody fusion at L2-L3. IMPRESSION: 1. No pulmonary embolus. 2. Right hilar neoplasm appears to have mildly decreased in size from 11/17/2021 although is difficult to measure given contiguous collapse of the right middle lobe. As before, the mass encases and attenuates airways and pulmonary vessels of the right middle lobe more than right lower lobe. 3. Patchy and nodular consolidation in both lower lobes and left upper lobe has worsened from 11/17/2021. This may be on the basis of infection and/or metastatic disease. Nodularity of the right upper lobe has improved from the prior study. 4. Small right pleural effusion. 5.Interval improvement in metastatic mediastinal lymphadenopathy. 6. Development of left hilar lymphadenopathy which may be metastatic or reactive. 7. Worsening lytic metastasis destroys a portion of theleft scapula. 8. 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 9. Additional 15 mm nodule in the subcutaneous fat of the back slightly to the right of midline at T11 level is probably a metastasis. Physical Exam: Temp: [97.5 ??F (36.4 ??C)-97.9 ??F (36.6 ??C)] 97.5 ??F (36.4 ??C) Pulse: [69-89] 69 Resp: [18-20] 18 BP: (108-109)/(66) 108/66 SpO2: [90 %-99 %] 90 % Wt Readings from Last 3 Encounters: 02/06/22 74.8 kg (165 lb) 01/07/22 79 kg (174 lb 3.2 oz) General appearance: alert, appears stated age, cooperative and no distress Head: Normocephalic, without obvious abnormality, atraumatic Eyes: lids and lashes normal. Sclera anicteric. Nose: no discharge Throat: lips with out lesions. Oral mucosa pink and moist Lungs: non-labored Extremities: nail clubbing noted Neurologic: Alert. Oriented x4 TTS: I have personally spent a total of 40 minutes on unit in review of medical record, consultationwith the medical providers and assessment of patient today, with more than 50% of this time spent incounseling, coordination of care, and discussion with patient and family re: symptom management, risks and benefits of management options and development of plan of care as noted above. Mikayla Shaw APRN, ANGLESMITH HELPER Palliative Care [phone] Shae Knight RN - 02/07/2022 11:59 AM CDTAssociated Order(s): CARE MANAGEMENT / SOCIAL WORK IP CONSULT Care Management Initial Consult General Information Assessment completed with: Patient, Type of CM/SW Visit: Initial Assessment Primary Care Provider verified and updated as needed: Yes Readmission within the last 30 days: current reason for admission unrelated to previous admission Return Category: Exacerbation of disease Advance Care Planning: Advance Care Planning Reviewed: (States no HCD, spouse makes decisions for me if needed) Communication Assessment Patient's communication style: spoken language (Norwegian or Bilingual) Cognitive Cognitive/Neuro/Behavioral: WDL Living Environment: People in home: spouse Current living Arrangements: house Able to return to prior arrangements: yes Family/Social Support: Care provided by: self, spouse/significant other Provides care for: no one Marital Status: Description of Support System: Supportive, Involved Current Resources: Patient receiving home care services: No Community Resources: None Equipment currently used at home: crutches Supplies currently used at home: Nebulizer tubing Employment/Financial: Employment Status: Financial Concerns: Lifestyle & Psychosocial Needs: Social Determinants of Health Tobacco Use: Medium Risk ??? Smoking Tobacco Use: Former ??? Smokeless Tobacco Use: Never ??? Passive Exposure: Not on file Alcohol Use: Not on file Financial Resource Strain: Not on file Food Insecurity: Not on file Transportation Needs: Not on file Physical Activity: Not on file Stress: Not on file Social Connections: Not on file Intimate Partner Violence: Not on file Depression: Not on file Housing Stability: Not on file Functional Status: Prior to admission patient needed assistance: Dependent ADLs:: Independent Dependent IADLs:: Independent Additional Information: Assessment completed with patient. Patient states he lives with his spouse in their house. He is mostly if I'm not in pain independent with ADLs and IADLs. He ambulates with crutches and drives. Currently no services in the home. Spouse to transport at discharge. Final discharge plan pending progression and recommendations. Shae Knight RN documented in this encounter ED Notes Gomez Leong MD - 02/07/2022 12:24 AM CDT EMERGENCY DEPARTMENT SIGN OUT NOTE ED COURSE AND MEDICAL DECISION MAKING Patient was signed out to me by Dr Burke Morelos at 12:24 AM 1:33 AM Spoke with hospitalist, Dr. Momin. In brief, Cash Tinoco is a 61 year old male who initially presented for flank pain. Patient woke up today with shortness of breath and a bad cough and has been coughing up a lot of mucus. He says whenever he coughs he gets pain everywhere and points to his ribs and chest. Patient points to his right flank as his main area of pain. Patient has stage IV lung cancer and pneumonia. The patient's CT returned showing signs of patchy consolidation in the bilateral lower lobes consistent with pneumonia. Given his symptoms we will plan to admit him to the hospital and IV antibiotics have been started. He is comfortable with this plan. FINAL IMPRESSION 1. Acute respiratory failure with hypoxia (H) 2. Malignant neoplasm of lung, unspecified laterality, unspecified part of lung (H) 3. SIRS (systemic inflammatory response syndrome) (H) LAB Labs Ordered and Resulted from Time of ED Arrival to Time of ED Departure COMPREHENSIVE METABOLIC PANEL - Abnormal Result Value Sodium 133 (*) Potassium 3.9 Chloride 100 Carbon Dioxide (CO2) 25 Anion Gap 8 Urea Nitrogen 24 (*) Creatinine 0.57 (*) Calcium 9.3 Glucose 98 Alkaline Phosphatase 122 (*) AST 14 ALT 21 Protein Total 5.7 (*) Albumin 2.3 (*) Bilirubin Total 0.5 GFR Estimate >90 CRP INFLAMMATION - Abnormal CRP 29.2 (*) CBC WITH PLATELETS AND DIFFERENTIAL - Abnormal WBC Count 5.7 RBC Count 3.63 (*) Hemoglobin 10.7 (*) Hematocrit 32.9 (*) MCV 91 MCH 29.5 MCHC 32.5 RDW 14.6 Platelet Count 213 DIFFERENTIAL - Abnormal % Neutrophils 85 % Lymphocytes 7 % Monocytes 8 % Eosinophils 0 % Basophils 0 Absolute Neutrophils 4.8 Absolute Lymphocytes 0.4 (*) Absolute Monocytes 0.5 Absolute Eosinophils 0.0 Absolute Basophils 0.0 RBC Morphology Confirmed RBC Indices Platelet Assessment Value: Automated Count Confirmed. Platelet morphology is normal. LACTIC ACID WHOLE BLOOD - Normal Lactic Acid 0.9 TROPONIN I - Normal Troponin I 0.[address] Abdomen Pelvis w Contrast Final Result IMPRESSION: 1. No pulmonary embolus. 2. Right hilar neoplasm appears to have mildly decreased in size from 11/17/2021 although is difficult to measure given contiguous collapse of the right middle lobe. As before, the mass encases and attenuates airways and pulmonary vessels of the right middle lobe more than right lower lobe. 3. Patchy and nodular consolidation in both lower lobes and left upper lobe has worsened from 11/17/2021. This may be on the basis of infection and/or metastatic disease. Nodularity of the right upper lobe has improved from the prior study. 4. Small right pleural effusion. 5. Interval improvement in metastatic mediastinal lymphadenopathy. 6. Development of left hilar lymphadenopathy which may be metastatic or reactive. 7. 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 8. 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 9. Additional 15 mm nodule in the subcutaneous fat of the back slightly to the right of midline at T11 level is probably a metastasis. CT Chest Pulmonary Embolism w Contrast Final Result IMPRESSION: 1. No pulmonary embolus. 2. Right hilar neoplasm appears to have mildly decreased in size from 11/17/2021 although is difficult to measure given contiguous collapse of the right middle lobe. As before, the mass encases and attenuates airways and pulmonary vessels of the right middle lobe more than right lower lobe. 3. Patchy and nodular consolidation in both lower lobes and left upper lobe has worsened from 11/17/2021. This may be on the basis of infection and/or metastatic disease. Nodularity of the right upper lobe has improved from the prior study. 4. Small right pleural effusion. 5. Interval improvement in metastatic mediastinal lymphadenopathy. 6. Development of left hilar lymphadenopathy which may be metastatic or reactive. 7. 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 8. 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 9. Additional 15 mm nodule in the subcutaneous fat of the back slightly to the right of midline at T11 level is probably a metastasis. Echocardiogram Complete (Results Pending) Gomez Leong [facility] EMERGENCY ROOM [facility] [id number] Gomez Loeng MD 02/08/22 [id number] Laly Talley, ZAIN - 02/06/2022 10:15 PM CDT Patient reports right sided pain, patient unable to localize pain to a specific spot but appears to be pointing to the right flank/rib area Reports pain started this morning after coughing and describes as sharp Denies N/V/ symptoms Took 5mg oxycodone 1 hour ROTARY [employer] with no relief Hx stage IV lung cancer with metastasis and is currently going through chemo Triage Assessment Row Name 02/06/22 [id number] Triage Assessment (Adult) Airway WDL WDL Respiratory WDL Respiratory WDL WDL Skin Circulation/Temperature WDL Skin Circulation/Temperature WDL WDL Cardiac WDL Cardiac WDL X;rhythm Pulse Rate & Regularity tachycardic Peripheral/Neurovascular WDL Peripheral Neurovascular WDL WDL Cognitive/Neuro/Behavioral WDL Cognitive/Neuro/Behavioral WDL WDL Burke Morelos MD - 02/06/2022 10:06 PM CDT EMERGENCY DEPARTMENT ENCOUNTER ED Course & Medical Decision Making I saw and examined the patient is mildly tachycardic and oxygen saturations with a good waveform on room air are in the upper 80s. I placed him on supplemental oxygen by nasal cannula and he is more comfortable and sats are normalizing. He is complaining of significantly productive cough, he was recently diagnosed with pneumonia and he is taking Augmentin and azithromycin according to his paper records already at home. He feels that he is getting worse despite being on this therapy. I am suspicious for a resistance, failed outpatient pneumonia. He could have a PE, his pain does extend down into hisabdomen as well. For these reasons I do feel that CT PE study and CT abdomen pelvis would be most indicated given his complicated patient. CT pending and he is signed out at shift change. 10:25 PM I introduced myself to the patient, obtained patient history, performed a physical exam, and discussed plan for ED workup including potential diagnostic laboratory/imaging studies and interventions. Prior to making a final disposition on this patient the results of patient's tests and other diagnostic studies were discussed with the patient. All questions were answered. Patient expressed understanding of the plan and was amenable to it. Medications 0.9% sodium chloride BOLUS (1,000 mLs Intravenous New Bag 02/06/22 1238) Followed by sodium chloride 0.9% infusion (has no administration in time range) morphine (PF) injection 4 mg (has no administration in time range) iopamidol (ISOVUE-370) solution 100 mL (has no administration in time range) acetaminophen (TYLENOL) tablet 650 mg (650 mg Oral Given 02/06/22 3101) Final Impression 1. Acute respiratory failure with hypoxia (H) 2. Malignant neoplasm of lung, unspecified laterality, unspecified part of lung (H) 3. SIRS (systemic inflammatory response syndrome) (H) Chief Complaint Chief Complaint Patient presents with ??? Flank Pain Patient reports right sided pain, patient unable to localize pain to a specific spot but appears to be pointing to the right flank/rib area Reports pain started this morning after coughing and describes as sharp Denies N/V/ symptoms Took 5mg oxycodone 1 hour [employer] with no relief Hx stage IV lung cancer with metastasis and is currently going through chemo Triage Assessment Row Name 02/06/22 3919 Triage Assessment (Adult) Airway WDL WDL Respiratory WDL Respiratory WDL WDL Skin Circulation/Temperature WDL Skin Circulation/Temperature WDL WDL Cardiac WDL Cardiac WDL X;rhythm Pulse Rate & Regularity tachycardic Peripheral/Neurovascular WDL Peripheral Neurovascular WDL WDL Cognitive/Neuro/Behavioral WDL Cognitive/Neuro/Behavioral WDL WDL HPI Cash Tinoco is a 61 year old male who presents for evaluation of flank pain and cough. Patient has stage IV lung cancer and pneumonia. Patient reports being on Augmentin and Azithromycin . Patient woke up today with shortness of breath and a bad cough and has been coughing up a lot of mucus. He says whenever he coughs he gets pain everywhere and points to his ribs and chest. Patient points to his right flank as his main area of pain. Patient had his 2nd round of chemo on Tuesday. I, Noah Palm am serving as a scribe to document services personally performed by Burke Morelos M.D. based on my observation and the provider's statements to me. IBurke M.D attest that Noah Palm is acting in a scribe capacity, has observed my performance of the services and has documented them in accordance with my direction. Past Medical History Past Medical History: Diagnosis Date ??? Cancer (H) Past Surgical History: Procedure Laterality Date ??? OPEN REDUCTION INTERNAL FIXATION HIP NAILING Right 01/07/2022 Procedure: PROPHYLACTIC INTRAMEDULLARY NAILING OF RIGHT HIP; Surgeon: Wayne Humphries MD; Location: [facility] Main OR No family history on file. Social History Tobacco Use ??? Smoking status: Former ??? Smokeless tobacco: Never Substance Use Topics ??? Alcohol use: Yes ??? Drug use: Never Relevant past medical, surgical, family and social history as documented above, has been reviewed and discussed with patient. No changes or additions, unless otherwise noted in the HPI. Current Medications acetaminophen (TYLENOL) 325 MG tablet albuterol (PROAIR HFA/PROVENTIL HFA/VENTOLIN HFA) 108 (90 Base) MCG/ACT inhaler ghyrbof-ziichyvlttckg-dppgsgkl (EXCEDRIN MIGRAINE) 250-250-65 MG tablet celecoxib (CELEBREX) 200 MG capsule diltiazem ER (DILT-XR) 240 MG 24 hr ER beaded capsule escitalopram (LEXAPRO) 10 MG tablet folic acid (FOLVITE) 400 MCG tablet guaiFENesin-codeine (ROBITUSSIN AC) 100-10 MG/5ML solution hydrOXYzine (ATARAX) 25 MG tablet ipratropium - albuterol 0.5 mg/2.5 mg/3 mL (DUONEB) 0.5-2.5 (3) MG/3ML neb solution omeprazole (PRILOSEC) [address] capsule ondansetron (ZOFRAN) 8 MG tablet oxyCODONE (ROXICODONE) 5 MG tablet polyethylene glycol (MIRALAX) 17 g packet rivaroxaban ANTICOAGULANT (XARELTO) 10 MG TABS tablet senna-docusate (SENOKOT-S/PERICOLACE) 8.6-50 MG tablet tadalafil (CIALIS) 20 MG tablet Allergies No Known Allergies Review of Systems Review of Systems Respiratory: Positive for cough and shortness of breath. Cardiovascular: Positive for chest pain. Genitourinary: Positive for flank pain (Right side). All other systems reviewed and are negative. Remainder of systems reviewed, unless noted in HPI all others negative. Physical Exam BP (!) 132/101 Pulse 112 Temp 99.6 ??F (37.6 ??C) (Oral) Resp 24 Ht 1.651 m (5' 5) Wt 74.8 kg (165 lb) SpO2 91% BMI 27.46 kg/m?? Physical Exam Vitals and nursing note reviewed. Constitutional: General: He is not in acute distress. HENT: Head: Normocephalic. Nose: Nose normal. Eyes: General: No scleral icterus. Cardiovascular: Rate and Rhythm: Normal rate. Pulmonary: Comments: Mildly tachypneic. Decreased breath sounds throughout. Late expiratory wheezing. Referredupper airway sounds versus rhonchi auscultated throughout Musculoskeletal: Cervical back: Neck supple. Skin: Findings: No rash. Neurological: Mental Status: He is alert. Mental status is at baseline. Psychiatric: Mood and Affect: Mood normal. Labs & Imaging Labs Ordered and Resulted from Time of ED Arrival to Time of ED Departure COMPREHENSIVE METABOLIC PANEL - Abnormal Result Value Sodium 133 (*) Potassium 3.9 Chloride 100 Carbon Dioxide (CO2) 25 Anion Gap 8 Urea Nitrogen 24 (*) Creatinine 0.57 (*) Calcium 9.3 Glucose 98 Alkaline Phosphatase 122 (*) AST 14 ALT 21 Protein Total 5.7 (*) Albumin 2.3 (*) Bilirubin Total 0.5 GFR Estimate >90 CRP INFLAMMATION - Abnormal CRP 29.2 (*) CBC WITH PLATELETS AND DIFFERENTIAL - Abnormal WBC Count 5.7 RBC Count 3.63 (*) Hemoglobin 10.7 (*) Hematocrit 32.9 (*) MCV 91 MCH 29.5 MCHC 32.5 RDW 14.6 Platelet Count 213 DIFFERENTIAL - Abnormal % Neutrophils 85 % Lymphocytes 7 % Monocytes 8 % Eosinophils 0 % Basophils 0 Absolute Neutrophils 4.8 Absolute Lymphocytes 0.4 (*) Absolute Monocytes 0.5 Absolute Eosinophils 0.0 Absolute Basophils 0.0 RBC Morphology Confirmed RBC Indices Platelet Assessment Value: Automated Count Confirmed. Platelet morphology is normal. LACTIC ACID WHOLE BLOOD - Normal Lactic Acid 0.9 TROPONIN I - Normal Troponin I 0.02 INR - Normal INR 1.10 Results for orders placed or performed during the hospital encounter of 02/06/22 Comprehensive metabolic panel Result Value Ref Range Sodium 133 (L) 136 - 145 mmol/L Potassium 3.9 3.5 - 5.0 mmol/L Chloride 100 98 - 107 mmol/L Carbon Dioxide (CO2) 25 22 - 31 mmol/L Anion Gap 8 5 - 18 mmol/L Urea Nitrogen 24 (H) 8 - 22 mg/dL Creatinine 0.57 (L) 0.70 - 1.30 mg/dL Calcium 9.3 8.5 - 10.5 mg/dL Glucose 98 70 - 125 mg/dL Alkaline Phosphatase 122 (H) 45 - 120 U/L AST 14 0 - 40 U/L ALT 21 0 - 45 U/L Protein Total 5.7 (L) 6.0 - 8.0 g/dL Albumin 2.3 (L) 3.5 - 5.0 g/dL Bilirubin Total 0.5 0.0 - 1.0 mg/dL GFR Estimate >90 >60 mL/min/1.73m2 CRP inflammation Result Value Ref Range CRP 29.2 (H) 0.0 - <0.8 mg/dL Lactic acid whole blood Result Value Ref Range Lactic Acid 0.9 0.7 - 2.0 mmol/L Result Value Ref Range Troponin I 0.02 0.00 - 0.29 ng/mL Result Value Ref Range INR 1.10 0.85 - 1.15 CBC with platelets and differential Result Value Ref Range WBC Count 5.7 4.0 - 11.0 10e3/uL RBC Count 3.63 (L) 4.40 - 5.90 10e6/uL Hemoglobin 10.7 (L) 13.3 - 17.7 g/dL Hematocrit 32.9 (L) 40.0 - 53.0 % MCV 91 78 - 100 fL MCH 29.5 26.5 - 33.0 pg MCHC 32.5 31.5 - 36.5 g/dL RDW 14.6 10.0 - 15.0 % Platelet Count 213 150 - 450 10e3/uL Manual Differential Result Value Ref Range % Neutrophils 85 % % Lymphocytes 7 % % Monocytes 8 % % Eosinophils 0 % % Basophils 0 % Absolute Neutrophils 4.8 1.6 - 8.3 10e3/uL Absolute Lymphocytes 0.4 (L) 0.8 - 5.3 10e3/uL Absolute Monocytes 0.5 0.0 - 1.3 10e3/uL Absolute Eosinophils 0.0 0.0 - 0.7 10e3/uL Absolute Basophils 0.0 0.0 - 0.2 10e3/uL RBC Morphology Confirmed RBC Indices Platelet Assessment Automated Count Confirmed. Platelet morphology is normal. Automated Count Confirmed. Platelet morphology is normal. Burke Morelos MD Emergency Medicine [facility] [address] [facility] [id number] 02/06/2022 Burke Morelos MD 02/07/22 0013 documented in this encounter Miscellaneous Notes Plan of Care - Simona Santoro RN - 02/08/2022 12:49 PM CDT Problem: Plan of Care - These are the overarching goals to be used throughout the patient stay. Goal: Plan of Care Review Description: The Plan of Care Review/Shift note should be completed every shift. The Outcome Evaluation is a brief statement about your assessment that the patient is improving, declining, or no change. This information will be displayed automatically on your shift note. Outcome: Adequate for Care Transition Goal Outcome Evaluation: Patient alert and oriented. Did home O2 test with patient, Oxygen saturation did not drop below 90%.Pt Ok'd for discharge. Plan of Care - Rosaura Loera RN - 02/08/2022 4:58 AM CDT Continues on 2L O2. PRN cough medication utilized with encouragement. Pt took 1/2 ordered dose, did report it was effective. Requests PRN pain medication for CA pain, as well as acute pain r/t severe cough. Alert and oriented. Problem: Gas Exchange Impaired Goal: Optimal Gas Exchange Outcome: Not Progressing Problem: Plan of Care - These are the overarching goals to be used throughout the patient stay. Goal: Optimal Comfort and Wellbeing Outcome: Progressing Intervention: Monitor Pain and Promote Comfort Recent Flowsheet Documentation Taken 02/08/2022 0037 by Rosaura Loera RN Pain Management Interventions: medication (see MAR) Problem: Pneumonia Goal: Resolution of Infection Signs and Symptoms Intervention: Prevent Infection Progression Recent Flowsheet Documentation Taken 02/08/2022 0100 by Rosaura Loera RN Isolation Precautions: droplet precautions maintained Goal Outcome Evaluation: Outcome Evaluation: Cough mildly improved with use of cough medication Plan of Care - Shana Whitehead RN - 02/07/2022 10:20 PM CDT Problem: Plan of Care - These are the overarching goals to be used throughout the patient stay. Goal: Absence of Hospital-Acquired Illness or Injury Intervention: Identify and Manage Fall Risk Recent Flowsheet Documentation Taken 02/07/20221707 by Sahna Whitehead RN Safety Promotion/Fall Prevention: ??? activity supervised ??? clutter free environment maintained ??? fall prevention program maintained ??? room organization consistent Problem: Plan of Care - These are the overarching goals to be used throughout the patient stay. Goal: Optimal Comfort and Wellbeing Outcome: Progressing Intervention: Monitor Pain and Promote Comfort Recent Flowsheet Documentation Taken 02/07/20221707 by Shana Whitehead RN Pain Management Interventions: medication (see MAR) Problem: Pneumonia Goal: Resolution of Infection Signs and Symptoms Outcome: Progressing Goal Outcome Evaluation: Pt is alert and oriented. Has SOB on exertion. O2 @ 2LPM. Coughs frequently and nasal swab came back with Human Rhinovirus. Placed on droplet precaution. Dr. El ordered to have patient wears a mask in his room. Standby assist. IV dilaudid and Oxycodone administered as needed. C/o pain to chest and side of abdomen when he coughs. VSS Significant Event - Sandra El MD - 02/07/2022 6:55 PM CDT Significant Event Note Time of event: 6:55 PM February 07, 2022 Description of event: Informed by nursing that the patient tested positive for rhinovirus and droplet precautions have been initiated Plan: Discontinue IV antibiotics no indication of the same. Strict droplet precautions, patient must wear a mask because the risk of transmission is very high Discussed with: bedside nurse Sandra El MD Provider Notification - Shana Whitehead RN - 02/07/2022 6:[address] Barajas notified re: Lab result for nasal swab done this 9:26am: Human Rhinovirus detected. Pt placed on droplet precaution. Plan of Care - Francie Segundo RN - 02/07/2022 2:56 PM CDT Goal Outcome Evaluation: resp work Problem: Plan of Care - These are the overarching goals to be used throughout the patient stay. Goal: Optimal Comfort and Wellbeing Outcome: Progressing Pt cont to have significant pain when came up from ER. Given PRN IV Dilaudid which was helpful. Lidocaine patch applied. Problem: Plan of Care - These are the overarching goals to be used throughout the patient stay. Goal: Readiness for Transition of Care Outcome: Progressing Pt cont on 2L NC, cont on IV fluids and antibx. Cont to have coarse tight cough. Pt is slightly wheezy. Provider Notification - Shira Rocha, RT - 02/07/2022 1:48 PM CDT Pt admitted with metastatic lung CA and PNA. Pt has hx of lung CA and is a former smoker. Pt is on 2 LPM NC, o2 sats 95%, BS diminished, cs, exp wheeze with increased aeration after nebs. Will continue Duoneb QID and PRN at this time. Will RE-EVAL 02/10/33 or sooner if needed. 02/07/22 1346 RCAT Assessment Reason for Assessment Other (see comments) (Lung CA) Pulmonary Status 4 Surgical Status 0 Chest X-ray 4 Respiratory Pattern 2 Mental Status 0 Breath Sounds 4 Cough Effectiveness 1 Level of Activity 1 O2 Required for SpO2>=92% 1 Acuity Level (points) 17 Acuity Level 2 Re-eval Interval Guideline Every 3 days Re-evaluation Date 02/10/22 Clinical Indications/Symptoms Aerosol Therapy RCAT protocol Volume Expansion Prevent atelectasis Pharmacy-Admission Medication History - Elizabeth Whaley RP - 02/07/2022 10:32 AM CDT Pharmacy Note - Admission Medication History Pertinent Provider Information: was prescribed augmentin & zpak 02/01. Zpak is complete Prior To Admission ([employer]) med list completed and updated in EMR. [employer] Med List Medication Sig Last Dose ??? acetaminophen (TYLENOL) 325 MG tablet Take 2 tablets (650 mg) by mouth every 4 hours as needed for other (mild pain) PRN ??? albuterol (PROAIR HFA/PROVENTIL HFA/VENTOLIN HFA) 108 (90 Base) MCG/ACT inhaler Inhale 2 puffs into the lungs 4 times daily as needed 02/06/2022 at can bring ??? amoxicillin-clavulanate (AUGMENTIN) 875-125 MG tablet Take 1 tablet by mouth 2 times daily 02/06/2022 ??? axmksgs-tfujxpjaysgvm-ztosmubh (EXCEDRIN MIGRAINE) 250-250-65 MG tablet Take 1 tablet by mouth 2times daily as needed LD 12/07 PRN ??? colchicine (COLCYRS) 0.6 MG tablet Take 0.6 mg by mouth 2 times daily 02/06/2022 ??? diltiazem ER (DILT-XR) 240 MG 24 hr ER beaded capsule Take 240 mg by mouth daily 02/06/2022 ??? escitalopram (LEXAPRO) 10 MG tablet Take 10 mg by mouth daily 02/06/2022 ??? folic acid (FOLVITE) 400 MCG tablet Take 400 mcg by mouth daily 02/06/2022 ??? guaiFENesin-codeine (ROBITUSSIN AC) 100-10 MG/5ML solution Take 10 mLs by mouth 2 times daily asneeded PRN ??? hydrOXYzine (ATARAX) 25 MG tablet Take 1 tablet (25 mg) by mouth every 6 hours as needed for itching or anxiety (with pain, moderate pain) PRN ??? ipratropium - albuterol 0.5 mg/2.5 mg/3 mL (DUONEB) 0.5-2.5 (3) MG/3ML neb solution Inhale 3 mLsinto the lungs 2 times daily as needed Past Week ??? omeprazole (PRILOSEC) [address] capsule Take 40 mg by mouth daily 02/06/2022 ??? ondansetron (ZOFRAN) 8 MG tablet Take 8 mg by mouth 2 times daily as needed PRN ??? oxyCODONE IR (ROXICODONE) 10 MG tablet Take 10-20 mg by mouth every 4 hours as needed for severepain 02/06/2022 ??? rivaroxaban ANTICOAGULANT (XARELTO) 10 MG TABS tablet Take 1 tablet (10 mg) by mouth daily 02/06/2022 ??? tadalafil (CIALIS) 20 MG tablet Take 20 mg by mouth daily as needed PRN Information source(s): Patient and CareEverywhere/SureScripts Method of interview communication: in-person Summary of Changes to [employer] Med List New: colchicine, augmentin Discontinued: miralax, celebrex Changed: oxycodone increased Patient was asked about OTC/herbal products specifically. [employer] med list reflects this. In the past week, patient estimated taking medication this percent of the time: greater than 90%. Allergies were reviewed, assessed, and updated with the patient. Medications currently not available for use during hospital stay. Family/Patient commercial sales representative states they will bring albuterol to [facility]. The information provided in this note is only as accurate as the sources available at the time of the update(s). Thank you for the opportunity to participate in the care of this patient. Elizabeth Whaley RPH 02/07/2022 10:32 AM Plan of Care - Fatou Tian RN - 02/07/2022 6:32 AM CDT Goal Outcome Evaluation: Problem: Plan of Care - These are the overarching goals to be used throughout the patient stay. Goal: Plan of Care Review Description: The Plan of Care Review/Shift note should be completed every shift. The Outcome Evaluation is a brief statement about your assessment that the patient is improving, declining, or no change. This information will be displayed automatically on your shift note. Outcome: Progressing Problem: Pneumonia Goal: Fluid Balance Outcome: Progressing Pain controlled with Oxycodone prn. O2 saturation in the mid 90's on 2L O2 via NC. Vitals stable. Patient due to void. documented in this encounter Plan of Treatment Not on filedocumented as of this encounter Procedures Procedure Name Priority Date/Time Associated Comments Diagnosis COMPREHENSIVE Routine 02/08/2022 6:23 AM Results for this METABOLIC PANEL CDT procedure ar e in the results section. CBC WITH PLATELETS Routine 02/08/2022 6:23 AM Res ults for this CDT procedure are i n the results section. ECHO COMPLETE WITH Routine 02/07/2022 2:39 PM Res ults for this CONTRAST CDT procedure are i n the results section. COVID-19 VIRUS STAT 02/07/2022 9:26 AM Results for this (CORONAVIRUS) BY PCR CDT procedu re are in the results section. RESPIRATORY PANEL PCR STAT 02/07/2022 9:26 AM Results for this CDT procedure are i n the results section. RESPIRATORY AEROBIC STAT 02/07/2022 2:34 AM Re sults for this BACTERIAL CULTURE CDT procedure are in the results section. CT ABDOMEN PELVIS W STAT 02/07/2022 12:22 Resu lts for this CONTRAST AM CDT procedure are i n the results section. CT CHEST PULMONARY STAT 02/07/2022 12:21 Resul ts for this EMBOLISM W CONTRAST AM CDT procedur e are in the results section. B-TYPE NATRIURETIC Add-On 02/06/2022 11:03 Resul ts for this PEPTIDE ( EAST ONLY) PM CDT proce dure are in the results section. CBC WITH PLATELETS AND STAT 02/06/2022 11:03 R esults for this DIFFERENTIAL PM CDT procedure are i n the results section. CBC WITH PLATELETS & STAT 02/06/2022 11:03 Res ults for this DIFFERENTIAL PM CDT procedure are i n the results section. TROPONIN I STAT 02/06/2022 11:03 Results for this PM CDT procedure are i n the results section. INR STAT 02/06/2022 11:03 Results for this PM CDT procedure are i n the results section. LACTIC ACID WHOLE STAT 02/06/2022 11:03 Result s for this BLOOD PM CDT procedure are i n the results section. DIFFERENTIAL STAT 02/06/2022 11:03 Results for this PM CDT procedure are i n the results section. CRP INFLAMMATION STAT 02/06/2022 11:03 Results for this PM CDT procedure are i n the results section. COMPREHENSIVE STAT 02/06/2022 11:03 Results fo r this METABOLIC PANEL PM CDT procedure ar e in the results section. documented in this encounter Results (ABNORMAL) Comprehensive metabolic panel (02/08/2022 6:23 AM CDT) [facility] Method Time Signature Sodium 135 (L) 136 - 145 02/08/2022 [facility] mmol/L 7:45 AM CDT Potassium 3.9 3.5 - 5.0 02/08/2022 [facility] mmol/L 7:45 AM CDT Chloride 102 98 - 107 02/08/2022 [facility] mmol/L 7:45 AM CDT Carbon Dioxide 22 22 - 31 02/08/2022 [facility] (CO2) mmol/L 7:45 AM CDT Anion Gap 11 5 - 18 02/08/2022 [facility] mmol/L 7:45 AM CDT Urea Nitrogen 17 8 - 22 02/08/2022 [facility] mg/dL 7:45 AM CDT Creatinine 0.60 (L) 0.70 - 02/08/2022 [facility] 1.30 7:45 AM CDT mg/dL Calcium 9.5 8.5 - 02/08/2022 [facility] 10.5 7:45 AM CDT mg/dL Glucose 107 70 - 125 02/08/2022 [facility] mg/dL 7:45 AM CDT Alkaline 106 45 - 120 02/08/2022 [facility] Phosphatase U/L 7:45 AM CDT AST 14 0 - 40 02/08/2022 [facility] U/L 7:45 AM CDT ALT 19 0 - 45 02/08/2022 [facility] U/L 7:45 AM CDT Protein Total 5.7 (L) 6.0 - 8.0 02/08/2022 [facility] g/dL 7:45 AM CDT Albumin 2.0 (L) 3.5 - 5.0 02/08/2022 [facility] g/dL 7:45 AM CDT Bilirubin Total 0.3 0.0 - 1.0 02/08/2022 [facility] mg/dL 7:45 AM CDT GFR Estimate >90 >60 02/08/2022 [facility] mL/min/1. 7:45 AM CDT 73m2 Comment: Effective 2021 eGF Rcr in adults is calculated using the 2020 CKD-EPI creatinine equation which includ es age and gender (Megan et al., NEM, DOI: 10.1056/BTMLii5306060) Specimen Anatomical Collection Method / Collection Time Recei ry Time (Source) Location / Volume Laterality Blood STRUCTURE OF LEFT Venipuncture / 02/08/2022 6:23 02/08 7:15 HAND / Unknown Unknown AM CDT AM CDT [place] DO LAB - BLOOD ORDERABLES Performing Organization Address City/State/ZIP Code Phon e Number [facility] [place] [address] [place] [address] (ABNORMAL) CBC with platelets (02/08/2022 6:23 AM CDT) [facility] gist Method Time Signature WBC Count 3.5 (L) 4.0 - 11.0 02/08/2022 [facility] 10e3/uL 7:19 AM CDT RBC Count 3.39 (L) 4.40 - 02/08/2022 [facility] 5.90 7:19 AM CDT 10e6/uL Hemoglobin 9.8 (L) 13.3 - 02/08/2022 [facility] 17.7 g/dL 7:19 AM CDT Hematocrit 30.7 (L) 40.0 - 02/08/2022 [facility] 53.0 % 7:19 AM CDT MCV 91 78 - 100 02/08/2022 [facility] fL 7:19 AM CDT MCH 28.9 26.5 - 02/08/2022 [facility] 33.0 pg 7:19 AM CDT MCHC 31.9 31.5 - 02/08/2022 [facility] 36.5 g/dL 7:19 AM CDT RDW 14.7 10.0 - 02/08/2022 [facility] 15.0 % 7:19 AM CDT Platelet Count 241 150 - 450 02/08/2022 [facility] 10e3/uL 7:19 AM CDT Specimen Anatomical Collection Method / Collection Time Recei ry Time (Source) Location / Volume Laterality Blood STRUCTURE OF LEFT Venipuncture / 02/08/2022 6:23 02/08 7:15 HAND / Unknown Unknown AM CDT AM CDT [place] DO LAB - BLOOD ORDERABLES Performing Organization Address City/State/ZIP Code Phon e Number [facility] [place] [address] [place] [address] ECHO COMPLETE WITH CONTRAST (02/07/2022 2:39 PM CDT) athologist Signature LVEF 55-60% CARDIOLOGY RESULTS Anatomical Region Laterality Modality Ultrasound Specimen (Source) Anatomical Collection Method Collection Time Re ceived Time Location / / Volume Laterality 02/07/2022 1:33 PM CDT Narrative 02/08/2022 8:39 AM CDT [id number]^OREN^[place] [address] Name: CASH TINOCO : 1960 Study Date: 02/07/2022 01:33 PM Age: 61 yrs Gender: Male Patient Location: [facility] Reason For Study: Chest Pain Ordering Physician: STEPH LOTT Performed By: PILY BSA: 1.8 m2 Height: 65 in Weight: 165 lb HR: 80 Procedure Complete Echo Adult. Definity ([facility] #[id number]) given intravenously. Interpretation Summary Left ventricular size, wall motion and f unction are normal. The ejection fraction is 55-60%. Normal right ventricle size and systolic function. The left atrium is mildly dilated. No obvious valvular disease. No previous study for comparison. I ?WMSI = 1.00 ? % Normal = 1 00 X - Cannot ?? 0 - ?(2) - Mildly 2 - ?Segments ??Size Interpret ?Hyperkinetic 1 - Normal ? ?Hypokinetic ??Hypokinetic ??1-2 ? small ? 7 - ?3-5 ? moderate 3 - Akinetic 4 - ?5 - ? 6 - Akinetic Dyskinetic ?? 6-14 ?large ? Dyskinetic ?? Aneurys mal ??w/scar ? w/scar ? 15-16 ?? diffuse Left Ventricle Left ventricular size, wall motion and f unction are normal. The ejection fraction is 55-60%. There is normal left ventricular wall thickness. Grade I or early diastolic dysfunction. Normal l eft ventricular wall motion. Right Ventricle Normal right ventricle size and systolic function. Atria The left atrium is mildly dilated. Right atrial size is normal. There is no atrial shunt seen. Mitral Valve Mitral valve leaflets appear normal. The re is no evidence of mitral stenosis or clinically significant mitral regurgi tation. Tricuspid Valve Tricuspid valve leaflets appear normal. There is no evidence of tricuspid stenosis or clinically significant tricu spid regurgitation. Aortic Valve Aortic valve leaflets appear normal. The re is no evidence of aortic stenosis or clinically significant aortic regurgi tation. Pulmonic Valve The pulmonic valve is normal in structur e and function. Vessels The aorta root is normal. IVC diameter < 2.1 cm collapsing >50% with sniff suggests a normal RA pressure of 3 mmHg. Pericardium There is no pericardial effusion. Rhythm Sinus rhythm was noted. MMode/2D Measurements & Calculations IVSd: 1.3 cm LVIDd: 4.4 cm LVIDs: 2.7 cm LVPWd: 0.82 cm FS: 38.3 % LV mass(C)d: 165.9 grams LV mass(C)dI: 91.0 grams/m2 Ao root diam: 3.5 cm LA dimension: 3.9 cm asc Aorta Diam: 3.7 cm LA/Ao: 1.1 LVOT diam: 2.3 cm LVOT area: 4.1 cm2 LA Volume Indexed (AL/bp): 35.0 ml/m2 RWT: 0.37 Time Measurements MM HR: 80.0 BPM Doppler Measurements & Calculations MV E max edilia: 81.0 cm/sec MV A max edilia: 94.0 cm/sec MV E/A: 0.86 MV dec slope: 502.6 cm/sec2 MV dec time: 0.16 sec Ao V2 max: 156.4 cm/sec Ao max P.0 mmHg Ao V2 mean: 114.3 cm/sec Ao mean P.9 mmHg Ao V2 VTI: 27.8 cm MANJULA(I,D): 4.0 cm2 MANJULA(V,D): 3.8 cm2 LV V1 max P.3 mmHg LV V1 max: 144.1 cm/sec LV V1 VTI: 27.0 cm SV(LVOT): 110.7 ml SI(LVOT): 60.8 ml/m2 PA acc time: 0.11 sec TR max edilia: 257.9 cm/sec TR max P.6 mmHg AV Edilia Ratio (DI): 0.92 MANJULA Index (cm2/m2): 2.2 E/E': 14.0 E/E' av.8 Lateral E/e': 9.5 Medial E/e': 14.0 Peak E' Edilia: 5.8 cm/sec Report approved by: Christiana Ford 01/23 08:39 AM Procedure Note Ele Slade MD - 02/08/2022 [id number]^OREN^[place] [address] Name: CASH TINOCO : 1960 Study Date: 02/07/2022 01:33 PM Age: 61 yrs Gender: Male Patient Location: [facility] Reason For Study: Chest Pain Ordering Physician: STEPH LOTT Performed By: PILY BSA: 1.8 m2 Height: 65 in Weight: 165 lb HR: 80 Procedure Complete Echo Adult. Definity ([facility] #[id number] 4-011) given intravenously. Interpretation Summary Left ventricular size, wall motion and f unction are normal. The ejection fraction is 55-60%. Normal right ventricle size and systolic function. The left atrium is mildly dilated. No obvious valvular disease. No previous study for comparison. I WMSI = 1.00 % Normal = 100 X - Cannot 0 - (2) - Mildly 2 - Segments Size Interpret Hyperkinetic 1 - Normal Hypoki netic Hypokinetic 1-2 small 7 - 3-5 moderate 3 - Akinetic 4 - 5 - 6 - Akinetic Dyskin etic 6-14 large Dyskinetic Aneurysmal w/scar w/scar 15- 16 diffuse Left Ventricle Left ventricular size, wall motion and f unction are normal. The ejection fraction is 55-60%. There is normal left ventricular wall thickness. Grade I or early diastolic dysfunction. Normal l eft ventricular wall motion. Right Ventricle Normal right ventricle size and systolic function. Atria The left atrium is mildly dilated. Right atrial size is normal. There is no atrial shunt seen. Mitral Valve Mitral valve leaflets appear normal. The re is no evidence of mitral stenosis or clinically significant mitral regurgi tation. Tricuspid Valve Tricuspid valve leaflets appear normal. There is no evidence of tricuspid stenosis or clinically significant tricu spid regurgitation. Aortic Valve Aortic valve leaflets appear normal. The re is no evidence of aortic stenosis or clinically significant aortic regurgi tation. Pulmonic Valve The pulmonic valve is normal in structur e and function. Vessels The aorta root is normal. IVC diameter < 2.1 cm collapsing >50% with sniff suggests a normal RA pressure of 3 mmHg. Pericardium There is no pericardial effusion. Rhythm Sinus rhythm was noted. MMode/2D Measurements & Calculations IVSd: 1.3 cm LVIDd: 4.4 cm LVIDs: 2.7 cm LVPWd: 0.82 cm FS: 38.3 % LV mass(C)d: 165.9 grams LV mass(C)dI: 91.0 grams/m2 Ao root diam: 3.5 cm LA dimension: 3.9 cm asc Aorta Diam: 3.7 cm LA/Ao: 1.1 LVOT diam: 2.3 cm LVOT area: 4.1 cm2 LA Volume Indexed (AL/bp): 35.0 ml/m2 RWT: 0.37 Time Measurements MM HR: 80.0 BPM Doppler Measurements & Calculations MV E max edilia: 81.0 cm/sec MV A max edilia: 94.0 cm/sec MV E/A: 0.86 MV dec slope: 502.6 cm/sec2 MV dec time: 0.16 sec Ao V2 max: 156.4 cm/sec Ao max P.0 mmHg Ao V2 mean: 114.3 cm/sec Ao mean P.9 mmHg Ao V2 VTI: 27.8 cm MANJULA(I,D): 4.0 cm2 MANJULA(V,D): 3.8 cm2 LV V1 max P.3 mmHg LV V1 max: 144.1 cm/sec LV V1 VTI: 27.0 cm SV(LVOT): 110.7 ml SI(LVOT): 60.8 ml/m2 PA acc time: 0.11 sec TR max edilia: 257.9 cm/sec TR max P.6 mmHg AV Edilia Ratio (DI): 0.92 MANJULA Index (cm2/m2): 2.2 E/E': 14.0 E/E' av.8 Lateral E/e': 9.5 Medial E/e': 14.0 Peak E' Edilia: 5.8 cm/sec Report approved by: Christiana Ford 01/23 08:39 AM Steph Lott MD CV ECHO ORDERABLES (ABNORMAL) Respiratory Panel PCR (02/07/2022 9:26 AM CDT) [facility] Method Time Signature Adenovirus Not Detected Not Detected 02/07/2022 [facility] 5:34 PM CDT LABORATORY Coronavirus Not Detected Not Detected 02/07/2022 [facility] 5:34 PM CDT LABORATORY Comment: This test detects Coronavirus 2 29E, HKU1, NL63 and OC43 but does not distinguish between them. It does not de tect MERS ( Respiratory Syndrome), SARS (Severe Acute Respirator y Syndrome) or 2019-nCoV (Novel 2018) Coronavirus. Human Metapneumovirus Not Detected Not Detected 02/07/2022 5 :34 [facility] PM CDT LABORATORY Human Rhin/Enterovirus Detected (A) Not Detected 02/07/2022 5:34 [facility] PM CDT LABORATORY Influenza A Not Detected Not Detected 02/07/2022 5:34 [facility] PM CDT LABORATORY Influenza A, H1 Not Detected Not Detected 02/07/2022 5:34 [facility] PM CDT LABORATORY Influenza A 2009 H1N1 Not Detected Not Detected 02/07/2022 5 :34 [facility] PM CDT LABORATORY Influenza A, H3 Not Detected Not Detected 02/07/2022 5:34 [facility] PM CDT LABORATORY Influenza B Not Detected Not Detected 02/07/2022 5:34 [facility] PM CDT LABORATORY Parainfluenza Virus 1 Not Detected Not Detected 02/07/2022 5 :34 [facility] PM CDT LABORATORY Parainfluenza Virus 2 Not Detected Not Detected 02/07/2022 5 :34 [facility] PM CDT LABORATORY Parainfluenza Virus 3 Not Detected Not Detected 02/07/2022 5 :34 [facility] PM CDT LABORATORY Parainfluenza Virus 4 Not Detected Not Detected 02/07/2022 5 :34 [facility] PM CDT LABORATORY Respiratory Syncytial Not Detected Not Detected 02/07/2022 5 :34 [facility] Virus A PM CDT LABORATORY Respiratory Syncytial Not Detected Not Detected 02/07/2022 5 :34 [facility] Virus B PM CDT LABORATORY Chlamydia Pneumoniae Not Detected Not Detected 02/07/2022 5: 34 [facility] PM CDT LABORATORY Mycoplasma Pneumoniae Not Detected Not Detected 02/07/2022 5 :34 [facility] PM CDT LABORATORY Specimen Anatomical Location / Collection Method Collection Nikita e Received Time (Source) Laterality / Volume Swab NASOPHARYNGEAL Non-blood 02/07/2022 9:26 02/07/2022 9:31 STRUCTURE / Unknown Collection / AM CDT AM CDT Unknown Narrative [facility] - 02/07/2022 5:34 PM C DT The ePlex Respiratory Panel is a qualita tive nucleic acid, multiplex, in vitro diagnostic test for the simultaneous det ection and identification of multiple respiratory viral and bacterial nucleic acids in nasopharyngeal swabs collected in viral transport media from individual ex hibiting signs and symptoms of respiratory infection. The assay has received FDA ap proval for the testing of nasopharyngeal (ANIMAL CARE WORKER) swabs only. The [facility]ious Diseases [facility] n[facility] Laboratory at [facility] has validated the performance characteristic s for bronchial alveolar lavage specimens. This test is used for clinical purposes and should not be regarded as investigational or for research. This laboratory is cert ified under the Clinical Laboratory Improvement Amendments of 1988 (CLIA-88) as qualified to perform high complexity clinical laboratory testing. Steph Lott MD LAB - MICRO GENERAL ORDERABL ES Performing Organization Address City/State/ZIP Code Phon e Number [facility] [address] Diag. Lab [address] [facility], [address] Asymptomatic COVID-19 Virus (Coronavirus) by PCR Nose (02/07/2022 9:26 AM CDT) Analysis Performed At Patho logist Time Signature SARS CoV2 PCR Negative Negative 02/07/2022 [facility] 10:19 AM CDT Comment: NEGATIVE: SARS-CoV-2 (COVID-19) RNA not detected, presumed negative. Specimen Anatomical Collection Method Collection Time Receive d Time (Source) Location / / Volume Laterality Swab NASAL STRUCTURE / Non-blood 02/07/2022 9:26 AM 01/23 9:31 Unknown Collection / CDT AM CDT Unknown Narrative [facility] - 02/07/2022 10:19 AM CDT Testing was performed using the Xpert Xpress SARS-CoV-2 Assay on the [employer] Systems. A dditional information about this Emergency Use Authorization (EUA) a ssay can be found via the Lab Guide. This test should be ordered for t he detection of SARS-CoV-2 in individuals who meet SARS-CoV-2 clinical and/or epidemiological criteria. Test performance is unknown in asymptomatic patients. This test is for in vitro diagnostic use unde r the FDA EUA for laboratories certified under CLIA to per form high complexity testing. This test has not been FDA cleared or ap proved. A negative result does not rule out the presence of PCR in hibitors in the specimen or target RNA in concentration below the li randi of detection for the assay. The possibility of a false negati ve should be considered if the patient's recent exposure or clinica l presentation suggests COVID-19. This test was validated by the [facility]. This laboratory is certified under the Clinical Laboratory Improvement Amendments of 1988 (CLIA-88) as qualified to perform high complexity laboratory testing. Steph Lott MD LAB - MICRO GENERAL ORDERABL ES Performing Organization Address City/State/ZIP Code Phon e Number [facility] [place] [address] [facility] (ABNORMAL) Respiratory Aerobic Bacterial Culture with Gram Stain (02/07/2022 2:34 AM CDT) Analysis Performed At Patho logist Time Signature Culture 3+ Normal 02/09/2022 [facility] laura 7:52 AM CDT LABORATORY Culture 4+ Cierra 02/09/2022 [facility] albicans (A) 7:52 AM CDT LABORATORY Comment: Susceptibilities not routinely done Gram Stain Result <10 Squamous 02/09/2022 7:52 AM [facility] epithelial cells/low CDT power field Gram Stain Result <25 PMNs/low power 02/09/2022 7: 52 AM [facility] field CDT Gram Stain Result 4+ Mixed laura 02/09/2022 7:52 A M [facility] CDT Specimen Anatomical Collection Method Collection Time Receive d Time (Source) Location / / Volume Laterality Sputum SPUTUM / Unknown Non-blood 02/07/2022 2:34 AM 02/07 2:38 Collection / CDT AM CDT Unknown [place] DO LAB - MICRO GENERAL ORDERABL ES Performing Organization Address City/State/ZIP Code Phon e Number [facility] [place] [address] Diag. Lab [address] [facility], [address] CT Abdomen Pelvis w Contrast (02/07/2022 12:22 AM CDT) Anatomical Region Laterality Modality Abdomen/Pelvis, SUBRAD CT BODY, UMP CT ABDOMEN PELVIS, Computed Tomography RAD CT Specimen (Source) Anatomical Collection Method Collection Time Re ceived Time Location / / Volume Laterality 02/07/2022 12:22 AM CDT Impressions 02/07/2022 1:16 AM CDT IMPRESSION: 1. ??No pulmonary embolus. 2. ??Right hilar neoplasm appears to hav e mildly decreased in size from 11/17/2021 although is difficult to measure given contiguous collapse of the right middle lobe. As before, the mass encases and at tenuates airways and pulmonary vessels o f the right middle lobe more than right lower lobe. 3. ??Patchy and nodular consolidation in both lower lobes and left upper lobe has worsened from 11/17/2021. This may be on the basis of infection and/or metastatic disease. Nodularity of the right upper lobe has improved from the prior study. 4. ??Small right pleural effusion. 5. ??Interval improvement in metastatic mediastinal lymphadenopathy. 6. ??Development of left hilar lymphaden opathy which may be metastatic or reactive. 7. 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 8. 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 9. ??Additional 15 mm nodule in the subc utaneous fat of the back slightly to the right of midline at T11 level is probably a metastasis. Narrative 02/07/2022 1:16 AM CDT EXAM: CT ABDOMEN PELVIS W CONTRAST, CT CHEST PULMONARY EMBOLISM W CONTRAST LOCATION: [facility] DATE/TIME: 02/07/2022 12:22 AM INDICATION: Right chest and flank pain. COMPARISON: CT chest 11/17/2021. PET/CT 08/13/2021. Abdominal ultrasound 01/16/2019. TECHNIQUE: CT chest pulmonary angiogram and routine CT abdomen pelvis with IV contrast. Arterial phase through the chest and venous phase through the abdomen and pelvis. Multiplanar reformats and MIP reconstructions were performed. Dose reduction techniques were used. CONTRAST: Isovue 370 100ml FINDINGS: ANGIOGRAM CHEST: No pulmonary embolus. N o aortic dissection or aneurysm. LUNGS AND PLEURA: The right hilar neopla sm appears to have decreased in size from 11/17/2021 although is difficult to measure given contiguous collapse of the right middle lobe. As before, the mass enca ses and attenuates bronchi and pulmonary vessels of the right middle lobe more than right lo wer lobe. Patchy and nodular consolidation in both lower lobes and left upper lobe has worsened from 11/17/2021. Nodularity in the right upper lobe has improved f rom the prior study. Small right pleural effusion. MEDIASTINUM/AXILLAE: Mediastinal lymphad enopathy has improved from 11/17/2021. For example, a right paratracheal lymph node which was previously 2.5 x 2.1 cm is now 1.5 x 1.2 cm (image 95 of series 4). However, left hilar lymphadenopathy has newly developed with the largest node now tabatha uring 1.9 x 1.5 cm (image 134 of series 4). CORONARY ARTERY CALCIFICATION: Moderate. HEPATOBILIARY: Normal. PANCREAS: Normal. SPLEEN: Normal. ADRENAL GLANDS: Normal. KIDNEYS/BLADDER: Stable 1.7 cm hyperdens e cortical lesion of the upper pole of the right kidney probably a benign hyperdense cyst. Additional small benign cysts of both kidneys do not warrant follow-up. BOWEL: Normal. LYMPH NODES: Normal. VASCULATURE: Unremarkable. PELVIC ORGANS: Normal. MUSCULOSKELETAL: A destructive lytic and soft tissue mass of the left scapula has enlarged and now measures about 3.0 cm, previously 1.2 cm on 11/17/2021 (image 51 of series 4). A similar lesion measuri ng 2.9 cm which destroys the left industrial cleaning technician ior 12th rib was not included in the [id number] o n 11/17/2021 but is new from PET/CT 08/13/2021 (image 75 of series 5). A new 15 mm nodule has developed in the subcutaneous fat of the back slightly to the right of midline at the T11 level (image 225 o f series 4). Post-ORIF of the proximal right femur i ncompletely imaged. Posterior and interbody fusion at L2-L3. Procedure Note Lele Valle MD - 02/07/2022Format ting of this note might be different from the original. EXAM: CT ABDOMEN PELVIS W CONTRAST, CT C HEST PULMONARY EMBOLISM W CONTRAST LOCATION: [facility] DATE/TIME: 02/07/2022 12:22 AM INDICATION: Right chest and flank pain. COMPARISON: CT chest 11/17/2021. PET/CT 08/13/2021. Abdominal ultrasound 01/16/2019. TECHNIQUE: CT chest pulmonary angiogram and routine CT abdomen pelvis with IV contrast. Arterial phase through the chest and venous phase through the abdomen and pelvis. Multiplanar reformats and MIP reconstructions were performed. Dose reduction techniques were used. CONTRAST: Isovue 370 100ml FINDINGS: ANGIOGRAM CHEST: No pulmonary embolus. N o aortic dissection or aneurysm. LUNGS AND PLEURA: The right hilar neopla sm appears to have decreased in size from 11/17/2021 although is difficult to measure given contiguous collapse of the right middle lobe. As before, the mass encases and attenuates bronchi and pulmonary vessels of the right middle lobe more than right lo wer lobe. Patchy and nodular consolidation in both lower lobes and left upper lobe has worsened from 11/17/2021. Nodularity in the right upper lobe has improved from the prior study. Small right pleural effusion. MEDIASTINUM/AXILLAE: Mediastinal lymphad enopathy has improved from 11/17/2021. For example, a right paratracheal lymph node which was previously 2.5 x 2.1 cm is now 1.5 x 1.2 cm (image 95 of series 4). However, left hilar lymphadenopathy has newly developed with the largest node now tabatha uring 1.9 x 1.5 cm (image 134 of series 4). CORONARY ARTERY CALCIFICATION: Moderate. HEPATOBILIARY: Normal. PANCREAS: Normal. SPLEEN: Normal. ADRENAL GLANDS: Normal. KIDNEYS/BLADDER: Stable 1.7 cm hyperdens e cortical lesion of the upper pole of the right kidney probably a benign hyperdense cyst. Additional small benign cysts of both kidneys do not warrant follow-up. BOWEL: Normal. LYMPH NODES: Normal. VASCULATURE: Unremarkable. PELVIC ORGANS: Normal. MUSCULOSKELETAL: A destructive lytic and soft tissue mass of the left scapula has enlarged and now measures about 3.0 cm, previously 1.2 cm on 11/17/2021 (image 51 of series 4). A similar lesion measuring 2.9 cm which destroys the left posterior 12th rib was not included in the [id number] o n 11/17/2021 but is new from PET/CT 08/13/2021 (image 75 of series 5). A new 15 mm nodule has developed in the subcutaneous fat of the back slightly to the right of midline at the T11 level (image 225 of series 4). Post-ORIF of the proximal right femur i ncompletely imaged. Posterior and interbody fusion at L2-L3. IMPRESSION: 1. No pulmonary embolus. 2. Right hilar neoplasm appears to have mildly decreased in size from 11/17/2021 although is difficult to measure given contiguous collapse of the right middle lobe. As before, the mass encases and attenuates airways and pulmonary vessels of the right middle lobe more than right lower lobe. 3. Patchy and nodular consolidation in b oth lower lobes and left upper lobe has worsened from 11/17/2021. This may be on the basis of infection and/or metastatic disease. Nodularity of the right upper lobe has improved from the prior study. 4. Small right pleural effusion. 5. Interval improvement in metastatic me diastinal lymphadenopathy. 6. Development of left hilar lymphadenop athy which may be metastatic or reactive. 7. 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 8. 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 9. Additional 15 mm nodule in the subcut aneous fat of the back slightly to the right of midline at T11 level is probably a metastasis. Burke Morelos MD IMG CT ORDERABLES CT Chest Pulmonary Embolism w Contrast (02/07/2022 12:21 AM CDT) Anatomical Region Laterality Modality Chest, SUBRAD CT BODY, UMP CT CHEST Comp uted Tomography Specimen (Source) Anatomical Collection Method Collection Time Re ceived Time Location / / Volume Laterality 02/07/2022 12:21 AM CDT Impressions 02/07/2022 1:16 AM CDT IMPRESSION: 1. ??No pulmonary embolus. 2. ??Right hilar neoplasm appears to hav e mildly decreased in size from 11/17/2021 although is difficult to measure given contiguous collapse of the right middle lobe. As before, the mass encases and at tenuates airways and pulmonary vessels o f the right middle lobe more than right lower lobe. 3. ??Patchy and nodular consolidation in both lower lobes and left upper lobe has worsened from 11/17/2021. This may be on the basis of infection and/or metastatic disease. Nodularity of the right upper lobe has improved from the prior study. 4. ??Small right pleural effusion. 5. ??Interval improvement in metastatic mediastinal lymphadenopathy. 6. ??Development of left hilar lymphaden opathy which may be metastatic or reactive. 7. 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 8. 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 9. ??Additional 15 mm nodule in the subc utaneous fat of the back slightly to the right of midline at T11 level is probably a metastasis. Narrative 02/07/2022 1:16 AM CDT EXAM: CT ABDOMEN PELVIS W CONTRAST, CT CHEST PULMONARY EMBOLISM W CONTRAST LOCATION: [facility] DATE/TIME: 02/07/2022 12:22 AM INDICATION: Right chest and flank pain. COMPARISON: CT chest 11/17/2021. PET/CT 08/13/2021. Abdominal ultrasound 01/16/2019. TECHNIQUE: CT chest pulmonary angiogram and routine CT abdomen pelvis with IV contrast. Arterial phase through the chest and venous phase through the abdomen and pelvis. Multiplanar reformats and MIP reconstructions were performed. Dose reduction techniques were used. CONTRAST: Isovue 370 100ml FINDINGS: ANGIOGRAM CHEST: No pulmonary embolus. N o aortic dissection or aneurysm. LUNGS AND PLEURA: The right hilar neopla sm appears to have decreased in size from 11/17/2021 although is difficult to measure given contiguous collapse of the right middle lobe. As before, the mass enca ses and attenuates bronchi and pulmonary vessels of the right middle lobe more than right lo wer lobe. Patchy and nodular consolidation in both lower lobes and left upper lobe has worsened from 11/17/2021. Nodularity in the right upper lobe has improved f rom the prior study. Small right pleural effusion. MEDIASTINUM/AXILLAE: Mediastinal lymphad enopathy has improved from 11/17/2021. For example, a right paratracheal lymph node which was previously 2.5 x 2.1 cm is now 1.5 x 1.2 cm (image 95 of series 4). However, left hilar lymphadenopathy has newly developed with the largest node now tabatha uring 1.9 x 1.5 cm (image 134 of series 4). CORONARY ARTERY CALCIFICATION: Moderate. HEPATOBILIARY: Normal. PANCREAS: Normal. SPLEEN: Normal. ADRENAL GLANDS: Normal. KIDNEYS/BLADDER: Stable 1.7 cm hyperdens e cortical lesion of the upper pole of the right kidney probably a benign hyperdense cyst. Additional small benign cysts of both kidneys do not warrant follow-up. BOWEL: Normal. LYMPH NODES: Normal. VASCULATURE: Unremarkable. PELVIC ORGANS: Normal. MUSCULOSKELETAL: A destructive lytic and soft tissue mass of the left scapula has enlarged and now measures about 3.0 cm, previously 1.2 cm on 11/17/2021 (image 51 of series 4). A similar lesion measuri ng 2.9 cm which destroys the left industrial cleaning technician ior 12th rib was not included in the [id number] o n 11/17/2021 but is new from PET/CT 08/13/2021 (image 75 of series 5). A new 15 mm nodule has developed in the subcutaneous fat of the back slightly to the right of midline at the T11 level (image 225 o f series 4). Post-ORIF of the proximal right femur i ncompletely imaged. Posterior and interbody fusion at L2-L3. Procedure Note Lele Valle MD - 02/07/2022Format ting of this note might be different from the original. EXAM: CT ABDOMEN PELVIS W CONTRAST, CT C HEST PULMONARY EMBOLISM W CONTRAST [facility] AND CLINIC DATE/TIME: 02/07/2022 12:22 AM INDICATION: Right chest and flank pain. COMPARISON: CT chest 11/17/2021. PET/CT 08/13/2021. Abdominal ultrasound 01/16/2019. TECHNIQUE: CT chest pulmonary angiogram and routine CT abdomen pelvis with IV contrast. Arterial phase through the chest and venous phase through the abdomen and pelvis. Multiplanar reformats and MIP reconstructions were performed. Dose reduction techniques were used. CONTRAST: Isovue 370 100ml FINDINGS: ANGIOGRAM CHEST: No pulmonary embolus. N o aortic dissection or aneurysm. LUNGS AND PLEURA: The right hilar neopla sm appears to have decreased in size from 11/17/2021 although is difficult to measure given contiguous collapse of the right middle lobe. As before, the mass encases and attenuates bronchi and pulmonary vessels of the right middle lobe more than right lo wer lobe. Patchy and nodular consolidation in both lower lobes and left upper lobe has worsened from 11/17/2021. Nodularity in the right upper lobe has improved from the prior study. Small right pleural effusion. MEDIASTINUM/AXILLAE: Mediastinal lymphad enopathy has improved from 11/17/2021. For example, a right paratracheal lymph node which was previously 2.5 x 2.1 cm is now 1.5 x 1.2 cm (image 95 of series 4). However, left hilar lymphadenopathy has newly developed with the largest node now tabatha uring 1.9 x 1.5 cm (image 134 of series 4). CORONARY ARTERY CALCIFICATION: Moderate. HEPATOBILIARY: Normal. PANCREAS: Normal. SPLEEN: Normal. ADRENAL GLANDS: Normal. KIDNEYS/BLADDER: Stable 1.7 cm hyperdens e cortical lesion of the upper pole of the right kidney probably a benign hyperdense cyst. Additional small benign cysts of both kidneys do not warrant follow-up. BOWEL: Normal. LYMPH NODES: Normal. VASCULATURE: Unremarkable. PELVIC ORGANS: Normal. MUSCULOSKELETAL: A destructive lytic and soft tissue mass of the left scapula has enlarged and now measures about 3.0 cm, previously 1.2 cm on 11/17/2021 (image 51 of series 4). A similar lesion measuring 2.9 cm which destroys the left posterior 12th rib was not included in the [id number] o n 11/17/2021 but is new from PET/CT 08/13/2021 (image 75 of series 5). A new 15 mm nodule has developed in the subcutaneous fat of the back slightly to the right of midline at the T11 level (image 225 of series 4). Post-ORIF of the proximal right femur i ncompletely imaged. Posterior and interbody fusion at L2-L3. IMPRESSION: 1. No pulmonary embolus. 2. Right hilar neoplasm appears to have mildly decreased in size from 11/17/2021 although is difficult to measure given contiguous collapse of the right middle lobe. As before, the mass encases and attenuates airways and pulmonary vessels of the right middle lobe more than right lower lobe. 3. Patchy and nodular consolidation in b h lower lobes and left upper lobe has worsened from 11/17/2021. This may be on the basis of infection and/or metastatic disease. Nodularity of the right upper lobe has improved from the prior study. 4. Small right pleural effusion. 5. Interval improvement in metastatic me diastinal lymphadenopathy. 6. Development of left hilar lymphadenop athy which may be metastatic or reactive. 7. 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 8. 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 9. Additional 15 mm nodule in the subcut aneous fat of the back slightly to the right of midline at T11 level is probably a metastasis. Burke Morelos MD [facility] [place] CT ORDERABLES B-Type Natriuretic Peptide ([facility] Only) (02/06/2022 11:03 PM CDT) athologist Signature BNP 33 0 - 53 02/07/2022 [facility] pg/mL 2:47 AM CDT Specimen Anatomical Collection Method / Collection Time Recei ry Time (Source) Location / Volume Laterality Blood STRUCTURE OF RIGHT Venipuncture / 02/06/2022 11:03 UPPER LIMB / Unknown PM CDT 11:08 PM CDT Unknown [place] DO LAB - BLOOD ORDERABLES Performing Organization Address City/State/ZIP Code Phon e Number [facility] [place] [address] [facility] (ABNORMAL) Manual Differential (02/06/2022 11:03 PM CDT) Patholo gist Method Time Signature % Neutrophils 85 % 02/07/2022 [facility] 12:04 AM LABORATORY CDT % Lymphocytes 7 % 02/07/2022 [facility] 12:04 AM LABORATORY CDT % Monocytes 8 % 02/07/2022 [facility] 12:04 AM LABORATORY CDT % Eosinophils 0 % 02/07/2022 [facility] 12:04 AM LABORATORY CDT % Basophils 0 % 02/07/2022 [facility] 12:04 AM LABORATORY CDT Absolute 4.8 1.6 - 8.3 02/07/2022 [facility] Neutrophils 10e3/uL 12:04 AM LABORATORY CDT Absolute 0.4 (L) 0.8 - 5.3 02/07/2022 [facility] Lymphocytes 10e3/uL 12:04 AM LABORATORY CDT Absolute 0.5 0.0 - 1.3 02/07/2022 [facility] Monocytes 10e3/uL 12:04 AM LABORATORY CDT Absolute 0.0 0.0 - 0.7 02/07/2022 [facility] Eosinophils 10e3/uL 12:04 AM LABORATORY CDT Absolute 0.0 0.0 - 0.2 02/07/2022 [facility] Basophils 10e3/uL 12:04 AM LABORATORY CDT RBC Morphology Confirmed RBC 02/07/2022 [facility] Indices 12:04 AM LABORATORY CDT Platelet Automated Automated 02/07/2022 [facility] Assessment Count Count 12:04 AM LABORATORY Confirmed. Confirmed. CDT Platelet Platelet morphology is morphology is normal. normal. Specimen Anatomical Collection Method / Collection Time Recei ry Time (Source) Location / Volume Laterality Blood STRUCTURE OF RIGHT Venipuncture / 02/06/2022 11:03 UPPER LIMB / Unknown PM CDT 11:08 PM CDT Unknown Burke Morelos MD LAB - BLOOD ORDERABLES Performing Organization Address City/State/ZIP Code Phon e Number [facility] [place] [address] [place] [address] (ABNORMAL) CBC with platelets and differential (02/06/2022 11:03 PM CDT) [facility] gist Method Time Signature WBC Count 5.7 4.0 - 11.0 02/07/2022 [facility] 10e3/uL 12:04 AM CDT RBC Count 3.63 (L) 4.40 - 02/07/2022 [facility] 5.90 12:04 AM CDT 10e6/uL Hemoglobin 10.7 (L) 13.3 - 02/07/2022 [facility] 17.7 g/dL 12:04 AM CDT Hematocrit 32.9 (L) 40.0 - 02/07/2022 [facility] 53.0 % 12:04 AM CDT MCV 91 78 - 100 02/07/2022 [facility] fL 12:04 AM CDT MCH 29.5 26.5 - 02/07/2022 [facility] 33.0 pg 12:04 AM CDT MCHC 32.5 31.5 - 02/07/2022 [facility] 36.5 g/dL 12:04 AM CDT RDW 14.6 10.0 - 02/07/2022 [facility] 15.0 % 12:04 AM CDT Platelet Count 213 150 - 450 02/07/2022 [facility] 10e3/uL 12:04 AM CDT Specimen Anatomical Collection Method / Collection Time Recei ry Time (Source) Location / Volume Laterality Blood STRUCTURE OF RIGHT Venipuncture / 02/06/2022 11:03 UPPER LIMB / Unknown PM CDT 11:08 PM CDT Unknown Burke Morelos MD LAB - BLOOD ORDERABLES Performing Organization Address City/[facility]/ZIP Code Phon e Number [facility] [place] [address] INR (02/06/2022 11:03 PM CDT) athologist Signature INR 1.10 0.85 - 1.15 02/06/2022 [facility] 11:19 PM CDT Specimen Anatomical Collection Method / Collection Time Recei ry Time (Source) Location / Volume Laterality Blood STRUCTURE OF RIGHT Venipuncture / 02/06/2022 11:03 UPPER LIMB / Unknown PM CDT 11:08 PM CDT Unknown Burke Morelos MD LAB - BLOOD ORDERABLES Performing Organization Address City/State/ZIP Code Phon e Number [facility] [place] [address] Troponin I (02/06/2022 11:03 PM CDT) P athologist Signature Troponin I 0.02 0.00 - 0.29 02/06/2022 [facility] ng/mL 11:38 PM CDT Specimen Anatomical Collection Method / Collection Time Recei ry Time (Source) Location / Volume Laterality Blood STRUCTURE OF RIGHT Venipuncture / 02/06/2022 11:03 UPPER LIMB / Unknown PM CDT 11:08 PM CDT Unknown Burke Morelos MD LAB - BLOOD ORDERABLES Performing Organization Address City/[facility]/[place]IP [place] [address] Lactic acid whole blood (02/06/2022 11:03 PM CDT) athologist Signature Lactic Acid 0.9 0.7 - 2.0 02/06/2022 [facility] mmol/L 11:17 PM CDT Specimen Anatomical Collection Method / Collection Time Recei ry Time (Source) Location / Volume Laterality Blood STRUCTURE OF RIGHT Venipuncture / 02/06/2022 11:03 UPPER LIMB / Unknown PM CDT 11:08 PM CDT Unknown Burke Morelos MD LAB - BLOOD ORDERABLES Performing Organization Address City/[facility]/[place] [address] (ABNORMAL) CRP inflammation (02/06/2022 11:03 PM CDT) athologist Signature CRP 29.2 (H) 0.0 - <0.8 02/06/2022 [facility] mg/dL 11:28 PM CDT Specimen Anatomical Collection Method / Collection Time Recei ry Time (Source) Location / Volume Laterality Blood STRUCTURE OF RIGHT Venipuncture / 02/06/2022 11:03 UPPER LIMB / Unknown PM CDT 11:08 PM CDT Unknown Burke Morelos MD LAB - BLOOD ORDERABLES Performing Organization Address City/[facility]/[place]IP [place] [address] (ABNORMAL) Comprehensive metabolic panel (02/06/2022 11:03 PM CDT) Patholo gist Method Time Signature Sodium 133 (L) 136 - 145 02/06/2022 [facility] mmol/L 11:28 PM CDT Potassium 3.9 3.5 - 5.0 02/06/2022 [facility] mmol/L 11:28 PM CDT Chloride 100 98 - 107 02/06/2022 [facility] mmol/L 11:28 PM CDT Carbon Dioxide 25 22 - 31 02/06/2022 [facility] (CO2) mmol/L 11:28 PM CDT Anion Gap 8 5 - 18 02/06/2022 [facility] mmol/L 11:28 PM CDT Urea Nitrogen 24 (H) 8 - 22 02/06/2022 [facility] mg/dL 11:28 PM CDT Creatinine 0.57 (L) 0.70 - 02/06/2022 [facility] 1.30 11:28 PM CDT mg/dL Calcium 9.3 8.5 - 02/06/2022 [facility] 10.5 11:28 PM CDT mg/dL Glucose 98 70 - 125 02/06/2022 [facility] mg/dL 11:28 PM CDT Alkaline 122 (H) 45 - 120 02/06/2022 [facility] Phosphatase U/L 11:28 PM CDT AST 14 0 - 40 02/06/2022 [facility] U/L 11:28 PM CDT ALT 21 0 - 45 02/06/2022 [facility] U/L 11:28 PM CDT Protein Total 5.7 (L) 6.0 - 8.0 02/06/2022 [facility] g/dL 11:28 PM CDT Albumin 2.3 (L) 3.5 - 5.0 02/06/2022 [facility] g/dL 11:28 PM CDT Bilirubin Total 0.5 0.0 - 1.0 02/06/2022 [facility] Y mg/dL 11:28 PM CDT GFR Estimate >90 >60 02/06/2022 [facility] mL/min/1. 11:28 PM CDT 73m2 Comment: Effective 2021 eGF Rcr in adults is calculated using the 2020 CKD-EPI creatinine equation which includ es age and gender (Megan et al., NEJ, DOI: 10.1056/NWJBpz9779929) Specimen Anatomical Collection Method / Collection Time Recei ry Time (Source) Location / Volume Laterality Blood STRUCTURE OF RIGHT Venipuncture / 02/06/2022 11:03 UPPER LIMB / Unknown PM CDT 11:08 PM CDT Unknown Burke Morelos MD LAB - BLOOD ORDERABLES Performing Organization Address City/State/ZIP Code Phon e Number [facility] [place] [address] [facility] documented in this encounter Visit Diagnoses Diagnosis SIRS (systemic inflammatory response syn drome) (H) - Primary Systemic inflammatory response syndrome, unspecified Acute respiratory failure with hypoxia ( H) Acute respiratory failure Malignant neoplasm of lung, unspecified laterality, unspecified part of lung (H) SIRS (systemic inflammatory response syn drome) (H) Systemic inflammatory response syndrome, unspecified Acute respiratory failure with hypoxia ( H) Acute respiratory failure Malignant neoplasm of lung, unspecified laterality, unspecified part of lung (H) documented in this encounter Admitting Diagnoses Diagnosis SIRS (systemic inflammatory response syn drome) (H) Systemic inflammatory response syndrome, unspecified documented in this encounter Administered Medications Inactive Administered Medications - up to 3 most recent administrations Medication Order MAR Action Action Date Dose Rate Site 0.9% sodium chloride BOLUS New Bag 02/06/2022 11:03 PM 1,000 mLs 1000 mL/hr Intravenous, 1,000 mL, CDT ONCE, at 1,000 mL/hr, Administer over 1 Hours, On 02/06/22 at 2300, For 1 dose acetaminophen (TYLENOL) tablet 650 mg Given 02/06/2022 10:57 PM CDT 650 mg 650 mg, Oral, ONCE, On 02/06/22 at 2300, For 1 dose, Maximum acetaminophen dose from all sources = 75 mg/kg/day not to exceed 4 grams/day. acetaminophen (TYLENOL) tablet 650 mg Given 02/08/2022 8:52 AM CDT 650 mg 650 mg, Oral, EVERY 4 HOURS PRN, other, mild pain, Starting on 02/07/22 at 1035, Maximum acetaminophen dose from all sources = 75 mg/kg/day not to exceed 4 grams/day. Given 02/08/2022 12:37 AM CDT 650 mg Given 02/07/2022 5:08 PM CDT 650 mg azithromycin 500 mg (ZITHROMAX) in 0.9% New Bag 02/07/2022 2:27 AM CDT 500 mg NaCl 250 mL intermittent infusion 500 mg STAT, 500 mg, Intravenous, EVERY 24 HOURS, First dose on 02/07/22 at 0230, Indications: Community Acquired Pneumonia colchicine (COLCYRS) tablet 0.6 mg Given 02/08/2022 8:48 AM CDT 0.6 mg 0.6 mg, Oral, 2 TIMES DAILY, First dose on 02/07/22 at 2100 Given 02/07/2022 10:00 PM CDT 0.6 mg diltiazem ER (DILT-XR) 24 hr capsule 240 mg Given 02/08/2022 8:48 AM CDT 240 mg 240 mg, Oral, DAILY, First dose on 02/07/22 at 1130, DO NOT CRUSH. Given 02/07/2022 10:55 AM CDT 240 mg escitalopram (LEXAPRO) tablet 10 mg Given 02/08/2022 8:47 AM CDT 10 mg 10 mg, Oral, DAILY, First dose on 02/07/22 at 1130 Given 02/07/2022 10:55 AM CDT 10 mg folic acid (FOLVITE) tablet 400 mcg Given 02/08/2022 8:47 AM CDT 400 mcg 400 mcg, Oral, DAILY, First dose on 02/07/22 at 1130 Given 02/07/2022 10:55 AM CDT 400 mcg guaiFENesin-codeine (ROBITUSSIN AC) 100-10 Given 02/08/2022 9:58 AM CDT 10 mLs MG/5ML solution 10 mL 10 mL, Oral, 2 TIMES DAILY PRN, cough, Starting on 02/07/22 at 1035 Given 02/08/2022 12:37 AM CDT 5 mLs Given 02/07/2022 12:13 PM CDT 10 mLs HYDROmorphone (PF) (DILAUDID) injection 0.5 Given 01/23 12:37 AM CDT 0.5 mg mg 0.5 mg, Intravenous, EVERY 2 HOURS PRN, moderate to severe pain, Starting on 02/07/22 at 0206 Given 02/07/2022 7:32 PM CDT 0.5 mg Given 02/07/2022 1:26 PM CDT 0.5 mg iopamidol (ISOVUE-370) solution 100 mL Given 02/07/2022 12:00 AM CDT 100 mLs 100 mL, Intravenous, ONCE, On 02/07/22 at 0000, For 1 dose ipratropium - albuterol 0.5 mg/2.5 mg/3 mL Given 02/08/2022 11:5 7 AM CDT 3 mLs (DUONEB) neb solution 3 mL 3 mL, Nebulization, 4 TIMES DAILY RT, First dose on 02/07/22 at 0800 Given 02/08/2022 7:42 AM CDT 3 mLs Given 02/07/2022 4:02 PM CDT 3 mLs ipratropium - albuterol 0.5 mg/2.5 mg/3 mL Given 02/07/2022 8:42 PM CDT 3 mLs (DUONEB) neb solution 3 mL 3 mL, Inhalation, 2 TIMES DAILY PRN, wheezing, shortness of breath / dyspnea, Starting on 02/07/22 at 1036 Lidocaine (LIDOCARE) Patch/Med Applied 02/08/2022 12:12 PM 1 patch Other (see 4 % Patch 1 patch CDT comments) 1 patch, Transdermal, EVERY 24 HOURS 0800, Administer over 12 Hours, First dose on 02/07/22 at 1330, Apply patch(s) to skin. To prevent lidocaine toxicity, patient should be patch free for 12 hrs daily. Patches may be cut to smaller size prior to removing release liner. Reminder: Remove previous patch before applying new patch. NEVER APPLY HEAT OVER PATCH which increases absorption and may lead to local anesthetic toxicity. Do not apply over area where liposomal bupivacaine was injected for 96 hours post injection. Patch/Med Applied 02/07/2022 1:27 PM CDT 1 patch Other (see comments) lidocaine patch in PLACE First dose on 02/07/22 at 1400, Chart every shift, confirming that patch is still in place on patient (no barcode scan needed). Se e patch order for dose information. NEVER APPLY HEAT OVER PATCH which will in crease absorption and may lead to risk of local anesthetic toxicit y. Do not apply over area where liposomal bupivacaine injected for 96 hours. morphine (PF) injection 4 mg Given 02/07/2022 10:52 AM CDT 4 mg 4 mg, Intravenous, EVERY 15 MIN PRN, moderate to severe pain, Starting on 02/06/22 at 2332, For 3 doses, Notify the provider to assess for uncontrolled pain or analgesic side effects. Hold while on IV [employer] or with regular IV opioid dosing. Given 02/07/2022 8:06 AM CDT 4 mg Given 02/07/2022 12:18 AM CDT 4 mg naloxone (NARCAN) injection 0.2 mg 0.2 mg, Intravenous, EVERY 2 MIN PRN, op ioid reversal, Starting on 02/07/22 at 1859, Administer intravenous route when available and notify [...] 2 MIN PRN, opioid reversal, Starting on 02/07/22 at 1859, Administer intramuscular if an intravenous ro squaxin is not available and notify provider when administered. For unintended daniel tion or respiratory depression if all of the below criteria are met: ~ respiratory rate LESS than or EQUAL to 8. ~SaO2 less than 92% and or/end-tidal CO2 i s greater than 50. ~ the patient is receiving an opioid, has unin tended sedations assessed as RASS (-3), and is currently not on mechanical ventilati on. RASS scale moderate (-3) is movement or [...] MIN PRN, op ioid reversal, Starting on 02/07/22 at 1859, Administer intravenous route when available and notify [...] 2 MIN PRN, opioid reversal, Starting on 02/07/22 at 1859, Administer intramuscular if an intravenous ro squaxin is not available and notify provider when administered. For unintended daniel tion or respiratory depression if all of the below criteria are met: ~ respiratory rate LESS than or EQUAL to 8. ~ SaO2 less than 92% and or/end-tidal CO2 is greater than 50. ~ the patient is receiving an opioid, has unin tended sedation assessed as RASS (-4) or (-5) and patient is currently not on mechanical ventil ation. RASS scale (-4) is deep sedation with no response to voice but movement o r eye opening to physical stimulation. RASS scale [...] HOURS PRN, nausea, v omiting, Starting on 02/07/22 at 0211, This is Step 1 of nausea and vomiting management. If n ausea not resolved in 15 minutes, go to Step 2 prochlorperazine ( COMPAZINE). With dry hands, peel back foil backing and gently remove tablet. Do not push oral disintegrating tablet through foil backing. Administer immediately on tongue and ora l disintegrating tablet dissolves in seconds, then swallow with saliva. Liquid not required. ondansetron (ZOFRAN) injection 4 mg 4 mg, Intravenous, EVERY 6 HOURS PRN, nausea, vomiting , Administer over 2-5 Minutes, Starting on 02/07/22 at 021 1, Give IF patient unable to tolerate oral medication. This is Step 1 of nausea and vomiting evin gement. If nausea not resolved in 15 minutes, go to Step 2 prochlorperazine (COMPAZINE). Irritant. oxyCODONE (ROXICODONE) tablet 10 mg Given 02/07/2022 6:58 AM CDT 10 mg 10 mg, Oral, EVERY 4 HOURS PRN, moderate to severe pain, Starting on 02/07/22 at 0206 Given 02/07/2022 2:33 AM CDT 10 mg oxyCODONE (ROXICODONE) tablet 10-20 mg Given 02/08/2022 9:59 AM CDT 20 mg 10-20 mg, Oral, EVERY 4 HOURS PRN, severe pain, Starting on 02/07/22 at 1036 Given 02/08/2022 5:52 AM CDT 20 mg Given 02/08/2022 2:05 AM CDT 20 mg pantoprazole (PROTONIX) EC tablet 40 mg Given 02/08/2022 8:47 AM CDT 40 mg 40 mg, Oral, 2 TIMES DAILY, First dose on 02/07/22 at 1100, Therapeutic interchange for omeprazole. Given 02/07/2022 7:32 PM CDT 40 mg Given 02/07/2022 11:03 AM CDT 40 mg perflutren lipid microsphere (DEFINITY) Given 02/07/2022 2:39 PM CDT 2 mLs injection SUSP 2 mL 2 mL, Intravenous, ONCE, On 02/07/22 at 1500, For 1 dose piperacillin-tazobactam (ZOSYN) 3.375 g vial Given 1:29 AM CDT 3.375 g to attach to NS 100 mL bag STAT, 3.375 g, Intravenous, ONCE, On 02/07/22 at 0130, For 1 dose, Lactated Ringer's solution is not compatible with piperacillin-tazobactam for injection. , Indications: Community Acquired Pneumonia piperacillin-tazobactam (ZOSYN) 3.375 g vial Given 3:59 PM CDT 3.375 g to attach to NS 100 mL bag STAT, 3.375 g, Intravenous, EVERY 8 HOURS, First dose on 02/07/22 at 0730, Lactated Ringer's solution is not compatible with piperacillin-tazobactam for injection. , Indications: Community Acquired Pneumonia Given 02/07/2022 8:09 AM CDT 3.375 g prochlorperazine (COMPAZINE) injection 1 0 mg 10 mg, Intravenous, EVERY 6 HOURS PRN, nausea, vomitin g, Administer over 1-2 Minutes, Starting on 02/07/22 at 0211, IF patient unable to tolerate oral medication. This is Step 2 of nausea and vomiting management. Give if nausea not resolved 15 minutes after giving ondansetron (ZOFRAN). prochlorperazine (COMPAZINE) suppository 25 mg 25 mg, Rectal, EVERY 12 HOURS PRN, nause a, vomiting, Starting on 02/07/22 at 0211, This is Step 2 of nausea and vomit ing management. Give if nausea not resolved 15 minutes after giving ondansetron (ZOFRAN). prochlorperazine (COMPAZINE) tablet 10 m g 10 mg, Oral, EVERY 6 HOURS PRN, vomiting , Starting on 02/07/22 at 0211, This is Step 2 of nausea and vomiting management . Give if nausea not resolved 15 minutes after giving ondansetron (ZOFRAN). rivaroxaban ANTICOAGULANT (XARELTO) tablet 10 Given 8:48 AM CDT 10 mg mg 10 mg, Oral, DAILY, First dose on 02/07/22 at 1130, Indications: Afib-non valvular, Ortho post-op DVT Prophylaxis Given 02/07/2022 10:55 AM CDT 10 mg sodium chloride (PF) 0.9% PF flush 3 mL Given 02/08/2022 10:01 AM CDT 3 mLs 3 mL, Intracatheter, EVERY 8 HOURS, First dose on 02/07/22 at 0230, to lock peripheral IV dormant line Given 02/08/2022 2:07 AM CDT 3 mLs sodium chloride 0.9% infusion New Bag 02/07/2022 12:26 PM CDT 100 mL/hr at 50 mL/hr, Intravenous, CONTINUOUS, Administer after the bolus., Starting on 02/07/22 at 0000, Until 02/07/22 at 1852 Rate/Dose Verify 02/07/2022 12:00 PM CDT 100 mL/hr Rate/Dose Verify 02/07/2022 10:00 AM CDT 100 mL/hr documented in this encounter Active and Recently Administered Medications Times are shown in CDT. Scheduled Medication Order 02/06/2022 02/07/2022 02/08/2022 0.9% sodium chloride BOLUS (COMPLETED) 2303 (New Bag - Provider: Mari Mosley RN) 0047 (Stopped - Provider: Mari Mosley RN) Intravenous, 1,000 mL, ONCE, at 1,000 mL /hr, Administer over 1 Hours, On 02/06/22 at 2300, For 1 dose acetaminophen (TYLENOL) tablet 650 mg (COMPLETED) 2256 (Given - Provider: Mari Mosley RN) 650 mg, Oral, ONCE, On 02/06/22 at 2 300, For 1 dose, Maximum acetaminophen dose from all sources = 75 mg/kg/day not to exceed 4 grams/day. azithromycin 500 mg (ZITHROMAX) in 0.9% NaCl 250 mL intermittent infusion 500 mg (CANCELED) 226 (New Bag - Provider: Eagle Mosley RN)033 (Stopped - Provider: Fatou Tian RN) STAT, 500 mg, Intravenous, EVERY 24 HOUR S, First dose on 02/07/22 at 0230, Indications: Community Acquired Pneumonia colchicine (COLCYRS) tablet 0.6 mg 0 (Given - Provider: Shana Whitehead RN) 0848 (Given - Provider: Simona Santoro RN) 0.6 mg, Oral, 2 TIMES DAILY, First dose on 02/07/22 at 2100 diltiazem ER (DILT-XR) 24 hr capsule 240 mg 1055 (Given - Provider: Nikki Ackerman RN) 0848 (Given - Provider: Kenna Moran) 240 mg, Oral, DAILY, First dose on 02/07/22 at 1130, DO NOT CRUSH. escitalopram (LEXAPRO) tablet 10 mg 1055 (Given - Provider: Nikki Ackerman RN) 0847 (Given - Provider: Kenna Moran) 10 mg, Oral, DAILY, First dose on 02/07/22 at 1130 folic acid (FOLVITE) tablet 400 mcg 1055 (Given - Provider: Nikki Ackerman RN) 0847 (Given - Provider: Kenna Moran) 400 mcg, Oral, DAILY, First dose on 02/07/22 at 1130 influenza recomb quadrivalent PF (FLUBLOK) injection 0.5 mL 1400 (Canceled Entry - Provider: Orders Generic Provider - Comment: Automatically canceled at discontinue of medication order) 0.5 mL, Intramuscular, PRIOR TO DISCHARG E, On 02/08/22 at 1000, For 1 dose, - Administer when afebrile (less than 100.4 F) x 24 hours. - If you need to change the due time, follow the instructions i n the reference link below. - If the pat ient refuses the vaccine at the time of administration, chart as Vaccine Refused. - If administering multiple vaccines (such as COVID-19 vaccine) at the same time , administer in different limbs, if poss ible. If you need to administer in the same limb, separate injection sites by 1 inch or more. iopamidol (ISOVUE-370) solution 100 mL (COMPLETED) 0000 (Given - Provider: ALANNA Carlos) 100 mL, Intravenous, ONCE, On 02/07/22 at 0000, For 1 dose ipratropium - albuterol 0.5 mg/2.5 mg/3 mL (DUONEB) neb solu tion 3 mL 0845 (Given - Provider: Shira Rocha, RT)1202 (Given - Provider: Shira Rocha RT)1602 (Given - Provider: Shira Rocha, RT)2000 (Canceled Entry - Provider: Cesia Martin RT - Comment: JUDY Vogel given) 0742 (Given - Provider: Cesia Martin, RT)1157 (Given - Provider: Cesia Martin RT)1600 (Canceled Entry - Provider: Orders Generic Provider - Comment: Automatically canceled at discontinue of medication order) 3 mL, Nebulization, 4 TIMES DAILY RT, First dose on 02/07/22 at 0800 Lidocaine (LIDOCARE) 4 % Patch 1 patch 1 327 (Patch/Med Applied - Provider: Francie Segundo RN - Comment: left chest flank) 0049 (Patch/Med Removed - Provider: Rosaura Loera, ZAIN)0937 (Not Given - Provider: Simona Santoro RN - Reason: Other - Comment: Patch was removed at 0030, 12 hour off period required. Application rescheduled for 1230.) 1 patch, Transdermal, EVERY 24 HOURS 080 0, Administer over 12 Hours, First dose on 02/07/22 at 1330, Apply patch(s) to skin. To prevent lidocaine toxicity, patient should be patch free for 12 hrs da 1212 (Patch/Med Applied - Provider: Simona Santoro RN - Comment: R abdomen)1421 (Due: Patch/Med Removed - Provider: Orders Generic Provider - Comment: Time automatically adjusted from order being discontinued) brianna. Patches may be cut to smaller size prior to removing release liner. Reminder: Remove previous patch before applying new patch. NEVER APPLY HEAT OVER PATCH which increases absorption and may lead to local anesthetic toxicity. Do not apply over area where liposomal bupivacaine was injected for 96 hours post injection. lidocaine patch in PLACE 1329 (Patch in Place - Provider: Francie Segundo RN)2202 (Patch in Place - Provider: Shana Whitehead RN) 0501 (Patch Free Period - Provider: Rosaura Loera, ZAIN)1400 (Canceled Entry - Provider: Orders Generic Provider - Comment: Automatically canceled at discontinue of medication order) First dose on 02/07/22 at 1400, Kenisha t every shift, confirming that patch is still in place on patient (no barcode scan needed). See patch order for dose information. NEVER APPLY HEAT OVER PATCH whic h will increase absorption and may lead to risk of local anesthetic toxicity. Do not apply over area where liposomal bupivacaine injected for 96 hours. pantoprazole (PROTONIX) EC tablet 40 mg 1103 (Given - Provider: Nikki Ackerman RN)1932 (Given - Provider: Shana Whitehead RN) 0847 (Given - Provider: Simona Santoro RN) 40 mg, Oral, 2 TIMES DAILY, First dose o n 02/07/22 at 1100, Therapeutic interchange for omeprazole. perflutren lipid microsphere (DEFINITY) injection SUSP 2 mL (COMPLETED) 1439 (Given - Provider: Roxann Alfred PARAM) 2 mL, Intravenous, ONCE, On 02/07/22 at 1500, For 1 dose piperacillin-tazobactam (ZOSYN) 3.375 g vial to attach to NS 100 mL bag (COMPLETED) 0129 (Given - Provider: Mari Mosley RN) STAT, 3.375 g, Intravenous, ONCE, On 02/07/22 at 0130, For 1 dose, Lactated Ringer's solution is not compatible with piperacillin-tazobactam for injection. , Indications: Community Acquired Pneumonia piperacillin-tazobactam (ZOSYN) 3.375 g vial to attach to NS 100 mL bag (CANCELED) 0809 (Given - Provider: Adrian Ackerman RN)1559 (Given - Provider: Shana Whitehead RN) STAT, 3.375 g, Intravenous, EVERY 8 HOUR S, First dose on 02/07/22 at 0730, Lactated Ringer's solution is not compatible with piperacillin-tazobactam for injection. , Indications: Community Acquired Pneumonia rivaroxaban ANTICOAGULANT (XARELTO) tablet 10 mg 1055 (Given - Provider: Nikki Ackerman RN) 0848 (Given - Provider: Simona Santoro, Kenna Canela) 10 mg, Oral, DAILY, First dose on Sun at 1130, Indications: Afib-non valvular, Ortho post-op DVT Prophylaxis sodium chloride (PF) 0.9% PF flush 3 mL 0221 (Not Given - Provider: Mari Mosley RN - Reason: IV Infusing)1206 (Not Given - Provider: Nikki Ackerman RN - Reason: IV Infusing)1830 (Canceled Entry - Provider: Shana Whitehead RN - Comment: IV infusing) 0207 (Given - Provider: Rosaura Loera, RN)1001 (Given - Provider: Simona Santoro, RN) 3 mL, Intracatheter, EVERY 8 HOURS, Firs t dose on 02/07/22 at 0230, to lock peripheral IV dormant line Continuous Medication Order 02/06/2022 02/07/2022 02/08/2022 sodium chloride 0.9% infusion (CANCELED) 0048 (New Bag - Provider: Mari Mosley RN)0400 (Rate/Dose Change - Provider: Fatou Tian RN)0654 (Rate/Dose Verify - Provider: Fatou Tian RN)0800 (Rate/Dose Verify - Provider: Nikki Ackerman RN) at 50 mL/hr, Intravenous, CONTINUOUS, Ad android architect after the bolus., Starting on 02/07/22 at 0000, Until 02/07/22 at 1852 1000 (Rate/Dose Verify - Provider: Nikki Ackerman RN)1200 (Rate/Dose Verify - Provider: Nikki Ackerman RN)1226 (New Bag - Provider: Nikki Ackerman RN)1923 (Infusion stopped per MD order - Provider: Shana Whitehead RN) PRN Medication Order 02/06/2022 02/07/2022 02/08/2022 acetaminophen (TYLENOL) tablet 650 mg 17 08 (Given - Provider: Shana Whitehead RN) 0037 (Given - Provider: Rosaura Loera, ZAIN)0852 (Given - Provider: Simona Santoro, ZAIN) 650 mg, Oral, EVERY 4 HOURS PRN, other, mild pain, Starting on 02/07/22 at 1035, Maximum acetaminophen dose from all sources = 75 mg/kg/day not to exceed 4 grams/day. albuterol (PROVENTIL HFA/VENTOLIN HFA) inhaler 2 puff, Inhalation, 4 TIMES DAILY PRN, s hortness of breath / dyspnea, wheezing, Starting on 02/07/22 at 1035, Check the dose counter on the inhaler to ensure there are doses remaining before administering. guaiFENesin-codeine (ROBITUSSIN AC) 100-10 MG/5ML solution 1 0 mL 1213 (Given - Provider: Nikki Ackerman, ZAIN) 0037 (Given - Provider: Rosaura Loera, ZAIN - Comment: patient refused full dose)0958 (Given - Provider: Simona Santoro RN) 10 mL, Oral, 2 TIMES DAILY PRN, cough, Starting on 02/07/22 at 1035 HYDROmorphone (PF) (DILAUDID) injection 0.5 mg 1218 (Not Given - Provider: Nikki Ackerman RN - Reason: Other - Comment: pt wanted oxy at this time)1326 (Given - Provider: Francie Segundo RN)1932 (Given - Provider: Shana Whitehead RN) 0037 (Given - Provider: Rosaura Loera, ZAIN) 0.5 mg, Intravenous, EVERY 2 HOURS PRN, moderate to severe pain, Starting on 02/07/22 at 0206 ipratropium - albuterol 0.5 mg/2.5 mg/3 mL (DUONEB) neb solu tion 3 mL 2041 (Given - Provider: Tarah Harris, RT) 3 mL, Inhalation, 2 TIMES DAILY PRN, whe ezing, shortness of breath / dyspnea, Starting on 02/07/22 at 1036 lidocaine (LMX4) cream Topical, EVERY 1 HOUR PRN, pain, with VA D insertion, Starting on 02/07/22 at 0211, Apply at least 30 minutes prior to VAD insertion in divided doses as needed for size of site for insertion. MAX Dos e: 2.5 g (?? of 5 g tube) Do NOT give if patient has a history of allergy to any local anesthetic or any rosi product. Do NOT use both lidocaine intradermal/subcutaneous injection and the lidocaine cream on the same site. lidocaine 1 % 0.1-1 mL 0.1-1 mL, Other, EVERY 1 HOUR PRN, mild pain with VAD insertion, Starting on 02/07/22 at 0211, MAX dose 1 mL subcutaneous OR intradermal along the side of the vein in divided doses as needed for VAD insertion. Do NOT give if patient has a history of allergy to any local anesthetic or any rosi product. Do NOT use both lidocaine intradermal/subcutaneous injection and the lidocaine cream on the same site. melatonin tablet 3 mg 3 mg, Oral, AT BEDTIME PRN, sleep, Start ing on 02/07/22 at 0211, Do not give unless at least 6 hours of uninterrupted sleep is expected. morphine (PF) injection 4 mg (COMPLETED) 17 (Given - Provider: Mari Mosley, RN)08 (Given - Provider: Nikki Ackerman, RN)1052 (Given - Provider: Nikki Ackerman, ZAIN) 4 mg, Intravenous, EVERY 15 MIN PRN, mod erate to severe pain, Starting on 02/06/22 at 2332, For 3 doses, Notify the provider to assess for uncontrolled pain or analgesic side effects. Hold while on IV MARKETING AUTOMATION ANALYST or with regular IV opioid dosing. naloxone (NARCAN) injection 0.2 mg(Linked Group 1) 0.2 mg, Intravenous, EVERY 2 MIN PRN, op ioid reversal, Starting on 02/07/22 at 1859, Administer intravenous route when available and notify provider when administered. For unintended sedation or res piratory depression if all of the below criteria are met: ~ respiratory rate LESS than or EQUAL to 8. ~SaO2 less than 92% and or/end-tidal CO2 is greater than 50. ~ the patient is receiving an opioid, h as unintended sedations assessed as RASS (-3), and is currently not on mechanical ventilation. RASS scale moderate (-3) is movement or eye opening to voice but no eye contact. Patient Monitoring Once th e patient has demonstrated a response to the naloxone, continue to monitor respiratory rate, depth, oxygen saturation and end-tidal CO2 (if available) every 15 minutes x 2, then every 30 minutes x 2, th en every 1 hour x 1 after each naloxone dose. Consider transfer to ICU if patient respiratory parameters have not improved after 4 naloxone doses. naloxone (NARCAN) injection 0.2 mg(Linked Group 1) 0.2 mg, Intramuscular, EVERY 2 MIN PRN, opioid reversal, Starting on 02/07/22 at 1859, Administer intramuscular if an intravenous route is not available and notify provider when administered. For un intended sedation or respiratory depress ion if all of the below criteria are met: ~ respiratory rate LESS than or EQUAL to 8. ~SaO2 less than 92% and or/end- tidal CO2 is greater than 50. ~ the patient i s receiving an opioid, has unintended se dations assessed as RASS (-3), and is currently not on mechanical ventilation. RASS scale moderate (-3) is movement or eye opening to voice but no eye contact. Pa tient Monitoring Once the patient has de monstrated a response to the naloxone, continue to monitor respiratory rate, depth, oxygen saturation and end-tidal CO2 (if available) every 15 minutes x 2, then every 30 minutes x 2, then every 1 hour x 1 after each naloxone dose. Consider transfer to ICU if patient respiratory parameters have not improved after 4 naloxone doses. naloxone (NARCAN) injection 0.4 mg(Linked Group 1) 0.4 mg, Intravenous, EVERY 2 MIN PRN, op ioid reversal, Starting on 02/07/22 at 1859, Administer intravenous route when available and notify provider when administered. For unintended sedation or res piratory depression if all of the below criteria [...] voice but movement or eye opening to ph ysical stimulation. RASS scale (-5) is u narousable. Patient Monitoring Once the patient has demonstrated a response to the naloxone, continue to monitor respiratory rate, depth, oxygen saturation and en d-tidal CO2 (if available) every 15 [place]ie [place] x 2, then every 30 minutes x 2, then every 1 hour x 1 after each naloxone dose. Consider transfer to ICU if patient respiratory parameters have not improved after 4 naloxone doses. naloxone (NARCAN) injection 0.4 mg(Linked Group 1) 0.4 mg, Intramuscular, EVERY 2 MIN PRN, opioid reversal, Starting on 02/07/22 at 1859, Administer intramuscular if an intravenous route is not available and notify provider when administered. For un intended sedation or respiratory depress ion if all of the below criteria are met: ~ respiratory rate LESS than or EQUAL to 8. ~ SaO2 less than 92% and or/end-tidal CO2 is greater than 50. ~ the patient is receiving an opioid, has unintended s edation assessed as RASS (-4) or (-5) and patient is currently not on mechanical ventilation. RASS scale (-4) is deep sedation with no response to voice but movem ent or eye opening to physical stimulati on. RASS scale (-5) is unarousable. Patient Monitoring [...] (ZOFRAN ODT) ODT tab 4 mg(Linked Group 2) 4 mg, Oral, EVERY 6 HOURS PRN, nausea, v omiting, Starting on 02/07/22 at 0211, This is Step 1 of nausea and vomiting management. If nausea not resolved in 15 minutes, go to Step 2 prochlorperazine ( COMPAZINE). With dry hands, peel back fo il backing and gently remove tablet. Do not push oral disintegrating tablet through foil backing. Administer immediately on tongue and oral disintegrating tablet dissolves in seconds, then swallow with saliva. Liquid not requi red. ondansetron (ZOFRAN) injection 4 mg(Linked Group 2) 4 mg, Intravenous, EVERY 6 HOURS PRN, na usea, vomiting, Administer over 2-5 Minutes, Starting on 02/07/22 at 0211, Give IF patient unable to tolerate oral medication. This is Step 1 of nausea and vo miting management. If nausea not resolve d in 15 minutes, go to Step 2 prochlorperazine (COMPAZINE). Irritant. oxyCODONE (ROXICODONE) tablet 10 mg (CANCELED) 0233 (Given - Provider: Mari Mosley RN)0658 (Given - Provider: Fatou Tian RN) 10 mg, Oral, EVERY 4 HOURS PRN, moderate to severe pain, Starting on 02/07/22 at 0206 oxyCODONE (ROXICODONE) tablet 10-20 mg 1 217 (Given - Provider: Nikki Ackerman, RN)1701 (Given - Provider: Maria Luisa Cota, RN)2159 (Given - Provider: Shana Whitehead, RN) 0205 (Given - Provider: Rosaura Loera, RN)0552 (Given - Provider: Camelia Jones, RN)0959 (Given - Provider: Simona Santoro, ZAIN) 10-20 mg, Oral, EVERY 4 HOURS PRN, sever e pain, Starting on 02/07/22 at 1036 Patient is already receiving anticoagula tion with heparin, enoxaparin (LOVENOX), warfarin (COUMADIN) or other anticoagulant medication CONTINUOUS PRN, Starting on 02/07/22 at 0211, Until 01/23 at 1621 prochlorperazine (COMPAZINE) injection 10 mg(Linked Group 3) 10 mg, Intravenous, EVERY 6 HOURS PRN, n ausea, vomiting, Administer over 1-2 Minutes, Starting on 02/07/22 at 0211, IF patient unable to tolerate oral medication. This is Step 2 of nausea and vomiti ng management. Give if nausea not resolv ed 15 minutes after giving ondansetron (ZOFRAN). prochlorperazine (COMPAZINE) suppository 25 mg(Linked Group 3) 25 mg, Rectal, EVERY 12 HOURS PRN, nause a, vomiting, Starting on 02/07/22 at 0211, This is Step 2 of nausea and vomiting management. Give if nausea not resolved 15 minutes after giving ondansetron (ZOFRAN). prochlorperazine (COMPAZINE) tablet 10 mg(Linked Group 3) 10 mg, Oral, EVERY 6 HOURS PRN, vomiting , Starting on 02/07/22 at 0211, This is Step 2 of nausea and vomiting management. Give if nausea not resolved 15 minutes after giving ondansetron (ZOFRAN). sodium chloride (PF) 0.9% PF flush 3 mL 3 mL, Intracatheter, EVERY 1 MIN PRN, li ne flush, other, to ensure patency or to lock dormant line, Starting on 02/07/22 at 0211 Linked Groups Order Group 1: naloxone (NARCAN) injection 0.2 mgJump to med 0.2 mg, Intravenous, EVERY 2 MIN PRN, op ioid reversal, Starting on 02/07/22 at 1859
Administer intravenous route when available and notify provider when administered. For unintende d sedation or respiratory depression if all of the below criteria are met: ~ respiratory rate LESS than or EQUAL to 8. ~SaO2 less than 92% and or/end-tidal CO2 is greater than 50.&amp ;nbsp;~ the patient is receiving an opio id, has unintended sedations assessed as RASS (-3), and is currently not on mechanical ventilation. RASS scale moderate (-3) is movement or eye opening to voice but no eye contact.&nb sp; Patient Monitoring Once the patient has demonstrated a response to the naloxone, continue to monitor respiratory rate, depth, oxygen sat uration and end-tidal CO2 (if available) every 15 minutes x 2, then every 30 minutes x 2, then every 1 hour x 1 after each naloxone dose. Consider transfer to ICU if patient respirato ry parameters have not improved after 4 naloxone doses.
Or naloxone (NARCAN) injection 0.4 mgJump to med 0.4 mg, Intravenous, EVERY 2 MIN PRN, op ioid reversal, Starting on 02/07/22 at 1859
Administer intravenous route when available and notify provider when administered. For unintende d sedation or respiratory depression if all of the below criteria are met: ~ respiratory rate LESS than or EQUAL to 8. ~ SaO2 less than 92% and or/end-tidal CO2 is greater than 50.&amp ;nbsp;~ the patient is receiving an opio id, has unintended sedation assessed as RASS (-4) or (-5) and patient is currently not on mechanical ventilation. RASS scale (-4) is deep sedat ion with no response to voice but moveme nt or eye opening to physical stimulation. RASS scale (-5) is unarousable. Patient Monitoring O nce the patient has demonstrated a respo nse to the naloxone, continue to monitor respiratory rate, depth, oxygen saturation and end-tidal CO2 (if available) every 15 minutes x 2, then every 30 minutes x 2, then every 1 hour x 1 after each nal oxone dose. Consider transfer to ICU if patient respiratory parameters have not improved after 4 naloxone doses.
Or naloxone (NARCAN) injection 0.2 mgJump to med 0.2 mg, Intramuscular, EVERY 2 MIN PRN, opioid reversal, Starting on 02/07/22 at 1859
Administer intramuscular if an intravenous route is not available and notify provider when administered . For unintended sedation or respir atory depression if all of the below criteria are met: ~ respiratory rate LESS than or EQUAL to 8. ~SaO2 less than 92% and or/end-tidal CO2 is greater than 50. ~ the patient is receiving an opioid, has unintended sedations assessed as RASS (-3), and is currently not on mechanical ventilation. RASS scale moderate (-3) is movement or eye opening to voic e but no eye contact. Patient Monitoring Once the patient has demonstrated a response to the naloxone, continue to monitor respiratory rate, depth, oxygen saturation and end- tidal CO2 (if available) every 15 minutes x 2, then every 30 minutes x 2, then every 1 hour x 1 after each naloxone dose. Consider transfer to ICU if patient respiratory parameters hurley ve not improved after 4 naloxone doses.
Or naloxone (NARCAN) injection 0.4 mgJump to med 0.4 mg, Intramuscular, EVERY 2 MIN PRN, opioid reversal, Starting on 02/07/22 at 1859
Administer intramuscular if an intravenous route is not available and notify provider when administered . For unintended sedation or respir atory depression if all of the below criteria are met: ~ respiratory rate LESS than or EQUAL to 8. ~ SaO2 less than 92% and or/end-tidal CO2 is greater than 50. ~ the patient is receiving an opioid, has unintended sedation assessed as RASS (-4) or (-5) and patient is currently not on mechanical ventilation. RASS scale (-4) is deep sedation with no resp onse to voice but movement or eye opening to physical stimulation. RASS scale (-5) is unarousable. Patie nt Monitoring Once the patient has demonstrated a response to the naloxone, continue to monitor respiratory rate, depth, oxygen saturation and end-tidal CO2 (if available) every 15 minutes x 2, then every 30 minutes x 2, then every 1 hour x 1 after each naloxone dose. Consider transfer to ICU if patient respiratory parameters have not improved after 4 naloxone doses.
Group 2: ondansetron (ZOFRAN ODT) ODT tab 4 mgJump to med 4 mg, Oral, EVERY 6 HOURS PRN, nausea, v omiting, Starting on 02/07/22 at 0211
This is Step 1 of nausea and vomiting management. If nausea not resolved in 15 minutes, go t o Step 2 prochlorperazine (COMPAZINE).&n bsp;With dry hands, peel back foil backing and gently remove tablet. Do not push oral disintegrating tablet through foil backing. Administer immediately on to ngue and oral disintegrating tablet diss olves in seconds, then swallow with saliva. Liquid not required.
Or ondansetron (ZOFRAN) injection 4 mgJump to med 4 mg, Intravenous, EVERY 6 HOURS PRN, na usea, vomiting, Administer over 2-5 Minutes, Starting on 02/07/22 at 0211
Give IF patient unable to tolerate oral medication. This is Step 1 of nausea and vomiting management. If n ausea not resolved in 15 minutes, go to Step 2 prochlorperazine (COMPAZINE). Irritant.
Group 3: prochlorperazine (COMPAZINE) injection 10 mgJump to med 10 mg, Intravenous, EVERY 6 HOURS PRN, n ausea, vomiting, Administer over 1-2 Minutes, Starting on 02/07/22 at 0211
IF patient unable to tolerate oral medication. This is Step 2 of nausea an d vomiting management. Give if nausea no t resolved 15 minutes after giving ondansetron (ZOFRAN).
Or prochlorperazine (COMPAZINE) tablet 10 mgJump to med 10 mg, Oral, EVERY 6 HOURS PRN, vomiting , Starting on 02/07/22 at 0211
This is Step 2 of nausea and vomiting management. Give if nausea not resolved 15 minutes after giving ondansetron (ZOFRAN).
Or prochlorperazine (COMPAZINE) suppository 25 mgJump to med 25 mg, Rectal, EVERY 12 HOURS PRN, nause a, vomiting, Starting on 02/07/22 at 0211
This is Step 2 of nausea and vomiting management. Give if nausea not resolved 15 minutes after giving ondansetron (ZOFRAN).
documented in this encounter Additional Health Concerns Infection Onset Date Last Indicated Resolved Time Human Rhinovirus 02/07/2022 02/07/2022 02/12/2022 11:3 9 PM CDT documented as of this encounter Care Teams Clinical Trainer Relationship Specialty Start Date End Date Hakeem Cunningham PCP - General Family Medicine 01/06/22 [address] [facility] [place] [place] [id number] documented as of this encounter
--- OUTSIDE RECORDS SUMMARY | 2022-02-25 11:24 | XMS_ITS | Encounter Summary ---
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) [C34.90, C79.51] Lesion of femur [M89.9] [facility] Periop Services Procedures ZZC OPEN FIX INTER/SUBTROCH FX,PLATE ZZC OPEN FIX INTER/SUBTROCH FX,IMPLNT ZZC OPEN TREATMENT GREATER TROCHANTERIC FRACTURE PROPHYLACTIC INTRAMEDULLARY NAILING OF RIGHT HIP [address] [place], [place] [phone] Phone: Referral ID Status Reason Start Date Expiration Date Visits Requ ested Visits Authorized [id number] 1 1 Encounter Details Date Type Department Care Team Description 01/07/2022 - Hospital Encounter [facility] Wayne Humphries MD 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 COMPLICATIONS/SIGNIFICANT FINDINGS None DISCHARGE INFORMATION [...] to metastasis (H) Nikky Encinas PA-C/Dr. 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 (H) albuterol (PROAIR Inhale 2 puffs into 0 2 HFA/PROVENTIL the lungs 4 times HFA/VENTOLIN HFA) 108 daily as needed (90 Base) MCG/ACT inhaler xruwycd-vlychlosjviam-fd Take 1 tablet by 0 ffeine (EXCEDRIN mouth 2 times daily MIGRAINE) 250-250-65 MG as needed LD 12/07 tablet diltiazem ER (DILT-XR) Take 240 mg by mouth 0 240 MG 24 hr ER beaded daily capsule escitalopram (LEXAPRO) Take 10 mg by mouth 0 07/24 10 MG tablet daily folic acid (FOLVITE) 400 [...] MG DR capsule daily ondansetron (ZOFRAN) 8 Take 8 mg by mouth 2 0 MG tablet times daily as needed rivaroxaban Take 1 tablet (10 35 tablet 0 01/07/2022 ANTICOAGULANT (XARELTO) mg) by mouth daily 10 MG TABS tabletIndications: 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 documented as of this encounter Progress Notes Anand Montgomery OT - 01/08/2022 10:19 AM CDT 01/08/22 0929 Quick Adds Type of Visit Initial Occupational [...] lower body dressing Lower Body Dressing Assessment/Training [place] Level (Lower Body Dressing) minimum assist (75% [...] CO2 Report completed by: Nikky Encinas PA-C [facility] Date: 01/08/2022 Time: 8:59 AM Michael Mazariegos MD - 01/08/2022 8:57 AM CDT [facility] MEDICINE PROGRESS NOTE Identification/Summary: 61-year-old male with a history of metastatic adenocarcinoma of the lung presents for prophylactic intramedullary nailing of the hip. Doing all right postoperative day #1. Metastatic adenocarcinoma the right lung Status post prophylactic intramedullary nailing Patient will follow up with his oncologist through [facility] Acute blood loss anemia Mild and asymptomatic [...] care was discussed with the Bedside Nurse, Bulb Farmworker/Modern Languages Professor and Patient. Michael Mazariegos MD [facility] Medicine [facility] Phone: #[phone] Interval History/Subjective: Patient feeling good. Eating. Urinating. [...] be read by a radiologist or a [place] non-radiologist provider. Labs: Most Recent 3 CBC's:Recent [...] Transfers Transfers sit-stand transfer Sit-Stand Transfer Sit-Stand [place] (Transfers) supervision;verbal cues Gait/Stairs (Locomotion) [place] Level (Gait) supervision;verbal cues;nonverbal cues (demo/gesture) Assistive Device (Gait) walker, front-wheeled Distance in Feet (Required for LE Total Joints) 100 Pattern (Gait) 3-point Deviations/Abnormal Patterns (Gait) gait speed decreased Maintains Weight-bearing Status (Gait) able to maintain;nonverbal cues (demo/gesture) to maintain;verbal cues to maintain Negotiation (Stairs) stairs independence;stairs assistive device;handrail location;number of steps;ascending technique;descending technique [place] Level (Stairs) supervision;verbal cues;nonverbal cues (demo/gesture) Handrail Location (Stairs) both sides Number of Steps (Stairs) 4 Ascending Technique (Stairs) pavf-dl-bygc Descending Technique (Stairs) novh-lr-ebau Clinical Impression Criteria for Skilled Therapeutic Intervention [...] 5:42 PM CDTAssociated Order(s): HOSPITALIST IP CONSULT [facility] MEDICINE CONSULT NOTE Physician requesting consult: Wayne Humphries MD Reason for consult: Postoperative medical management of medical co-morbidities as below Assessment and Plan Hector Norris is a 61 year old old male with a history of metastatic adenocarcinoma of the right lung presents for prophylactic intramedullary nailing of the right hip due to metastases. [facility] service was asked to evaluate patient [...] will follow up with his oncologist through [facility] Rheumatoid arthritis Clinically stable Paroxysmal atrial fibrillation [...] Week at does not have with ??? czmypyq-emyurzmghudbi-omvtzywo (EXCEDRIN MIGRAINE) 250-250-65 MG tablet Take 1 tablet by mouth 2times daily as needed LD 8/15 Past Month at Unknown time ??? diltiazem [...] mouth 3 times daily as needed 01/06/2022 [id number] ??? ipratropium - albuterol 0.5 mg/2.5 mg/3 [...] be read by a radiologist or a [place] non-radiologist provider. Labs Reviewed Personally By Myself [...] Abnormality Status --------- ------ Adult Type and Screen[[id number]] Final result Please view results for these tests on the individual orders. Adult Type and Screen Result Value Ref Range ABO/RH(D) O POS Antibody Screen Negative Negative SPECIMEN EXPIRATION DATE [id number] XR Surgery MARK Fluoro G/T 5 Min Narrative This exam was marked as non-reportable because it will not be read by a radiologist or a [place] non-radiologist provider. Preoperative Labs Reviewed Personally By Myself Sodium 142 potassium 4.3 chloride 109 bicarb 23 BUN 25 creatinine 1.14 glucose 109 white count 10.5 hemoglobin 11.5 MCV 93 platelets 447 sed rate 37 Thank you for this consultation. Appreciate the opportunity to participate in the care of Hector Norris, please feel free to contact us for any questions or concerns. iMchael Mazariegos MD [facility] Phone: #[phone] documented in this encounter Miscellaneous Notes Plan [...] with . Plan of Care - Anand Montgomery, OT - 01/08/2022 10:23 AM CDT Occupational Therapy Discharge Summary Reason for therapy discharge: All goals and outcomes met, no further needs identified. Progress towards therapy goal(s). See goals on Care Plan in [facility] electronic health record for goal details. Goals met Therapy recommendation(s): No further therapy is recommended. Plan of Care - Tahsa Mensah, PT - 01/08/2022 8:57 AM CDT Physical Therapy Discharge Summary Reason for therapy discharge: Goals met. Progress towards therapy goal(s). See goals on Care Plan in [facility] electronic health record for goal details. Goals [...] analgesics: Yes Does patient have an identified job coach/job developer: Yes Has goal D/C date and time [...] analgesics: Yes Does patient have an identified job coach/job developer: Yes Has goal D/C date and time been discussed with patient: Yes Continue to monitor VS, labs, pain level, incision site and activity tolerance. Goal Outcome Evaluation: Provider Notification - Wendy Gregg RN - 01/07/2022 1:24 PM CDT Notified Jason JIM, regarding todays labs, WBC elevated from 2 days ago. Will proceed with OR today. Pharmacy-Admission Medication History - Autumn Holm [facility] - 01/07/2022 12:29 PM CDT Pharmacy Note - Admission Medication History Pertinent Provider Information: n/a Prior To Admission (GRAIN ELEVATOR AGENT) med list completed and updated in EMR. GRAIN ELEVATOR AGENT Med List Medication Sig Last Dose ??? albuterol (PROAIR HFA/PROVENTIL HFA/VENTOLIN HFA) 108 (90 Base) MCG/ACT inhaler Inhale 2 puffs into the lungs 4 times daily as needed Past Week at does not have with ??? jmeypef-qjnpsrarpgudf-egtsslnr (EXCEDRIN MIGRAINE) 250-250-65 MG tablet Take 1 [...] mouth 3 times daily as needed 01/06/2022 [id number] ??? ipratropium - albuterol 0.5 mg/2.5 mg/3 [...] Patient was asked about OTC/herbal products specifically. GRAIN ELEVATOR AGENT med list reflects this. Based on the pharmacist's assessment, the GRAIN ELEVATOR AGENT med list information appears reliable Allergies were reviewed, assessed, and updated with the patient. Patient did not bring any medications to the hospital and can't retrieve from home. No multi-dose medications are available for use during hospital stay. Thank you for the opportunity to participate in the care of this patient. Autumn Holm, PharmD, [facility] 01/07/2022 12:29 PM Op Note [...] fascia iliac a block in preop per [facility]. He was appropriately premedicated. Consent obtained risks reviewed. Labswere checked. He was premedicated brought to the operative room undergoing anesthetic induction. Transferred to the Seaside table. Seaside boot was applied to the right lower [...] in the sagittal plane, using the perfect makah technique was used to drill the static transverse screw hole. This was measured and filled with the appropriately sized interlocking screw. Then, in likewise fashion using the C-arm in the sagittal plane, using the perfect makah technique, the dynamic screw slot was predrilled [...] procedure well and was sent to the [place] in stable condition. Estimated Blood Loss: Less than 50 cc Specimens: No specimen Drains: No drain Complications: None Wayne Humphries MD Date: 01/07/2022 Time: 3:37 PM Implant Name Type Inv. Item Serial No. Sealer Dry Cell Lot No. LRB No. Used Action SYNTHES TITANIUM NAIL RT 12MM X 380MM SYNTHES [id number] Right 1 Implanted SYNTHES LOCKING SCREW IM NAIL 5 X 38MM SYNTHES [id number] Right 1 Implanted SYNTHES IM LOCKING SCREW 5 X 72MM SYNTHES [id number] Right 1 Implanted SYNTHES LOCKING SCREW IM NAIL 5 X 40MM SYNTHES [id number] Right 1 Implanted SYNTHES LOCKING SCREW IM NAIL 5 X 46MM SYNTHES [id number] Right 1 Implanted Provider Notification - Blaine Castillo APRN CNP - 01/06/2022 12:36 PM CDT I am evaluating this patient for upcoming Prophylactic Intramedullary Nailing of Right Hip with Dr. Humphries at [facility] on 01/07/22: - Notified by preop RNEllen, [...] tomorrow. OK to proceed. Blaine Castillo APRN, CNP Advanced Practice Nurse Navigator- Orthopedics [facility] Office Direct documented in this encounter [...] Notes SYNTHES RECON NAIL LOANERS.N blayne Carnes. [phone] John Wells [phone] Ernestina Goodson [phone] Special Needs C-Arm - Removed C-Arm (confl ict) to get scheduled - ok to do per Jeannette 01/01/22 Pranav Carnes Table TYPE AND SCREEN, ADULT STAT 01/07/2022 [...] Signature Hemoglobin 10.7 (L) 13.3 - 01/08/2022 [facility] 17.7 g/dL 5:42 AM CDT Specimen Anatomical Collection Method / Collection Time Recei ry Time (Source) Location / Volume Laterality Blood STRUCTURE OF RIGHT Venipuncture / 01/08/2022 5:36 /09/2021 5:39 UPPER LIMB / Unknown AM CDT AM CDT Unknown Jason Guzman PA-C LAB - BLOOD ORDERABLES Performing Organization Address City/State/ZIP Code Phon e Number [facility] [place] [address] [place] [address] XR Surgery MARK Fluoro G/T 5 Min (01/07/2022 3:53 PM CDT) Specimen (Source) Anatomical Location Collection Method / Collectio n Time Received Time / Laterality Volume Narrative [facility] - 01/07/2022 3:56 PM CDT This exam was marked as non-reportable because it will not be read by a radiologist or a [place] non-radiologis t provider. Wayne Humphries MD IMG DIAGNOSTIC IMAGING ORDER DUNG Performing Organization Address City/[facility]/ZIP Code Phon e Number [facility] Adult Type and Screen (01/07/2022 12:13 PM CDT) [facility] Method Time Signature ABO/RH(D) O POS 01/07/2022 [facility] 12:15 PM BANK CDT Antibody Negative Negative 01/07/2022 [facility] Screen 12:15 PM BANK CDT SPECIMEN [id number] 01/07/2022 [facility] EXPIRATION 12:15 PM BANK DATE CDT Specimen Anatomical Collection Method / Collection Time Recei ry Time (Source) Location / Volume Laterality Blood BLOOD SPECIMEN / Venipuncture / 01/07/2022 12:13 01/07 Unknown Unknown PM CDT 12:22 PM CDT Jason Guzman PA-C LAB - BLOOD BANK TEST ORDER Performing Organization Address City/[facility]/ZIP Code Phon e Number [facility] [address] [place] [address] (ABNORMAL) Erythrocyte sedimentation rate auto (01/07/2022 12:13 PM CDT) Patholo gist Method Time Signature Erythrocyte 25 (H) 0 - 15 01/07/2022 [facility] Sedimentation Rate mm/hr 1:07 PM CDT Specimen Anatomical Collection Method / Collection Time Recei ry Time (Source) Location / Volume Laterality Blood BLOOD SPECIMEN / Venipuncture / 01/07/2022 12:13 01/07 Unknown Unknown PM CDT 12:22 PM CDT Jason Guzman PA-C LAB - BLOOD ORDERABLES Performing Organization Address City/[facility]/[place] [address] (ABNORMAL) CRP inflammation (01/07/2022 12:13 PM CDT) athologist Signature CRP 1.4 (H) 0.0 - <0.8 01/07/2022 [facility] mg/dL 12:38 PM CDT Specimen Anatomical Collection Method / Collection Time Recei ry Time (Source) Location / Volume Laterality Blood BLOOD SPECIMEN / Venipuncture / 01/07/2022 12:13 01/07 Unknown Unknown PM CDT 12:22 PM CDT Jason Guzman PA-C LAB - BLOOD ORDERABLES Performing Organization Address City/[facility]/[place] [address] INR (01/07/2022 12:13 PM CDT) athologist Signature INR 0.94 0.85 - 1.15 01/07/2022 [facility] 12:36 PM CDT Specimen Anatomical Collection Method / Collection Time Recei ry Time (Source) Location / Volume Laterality Blood BLOOD SPECIMEN / Venipuncture / 01/07/2022 12:13 01/07 Unknown Unknown PM CDT 12:22 PM CDT Jason Guzman PA-C LAB - BLOOD ORDERABLES Performing Organization Address City/[facility]/[place] [address] (ABNORMAL) Creatinine (01/07/2022 12:13 PM CDT) athologist Signature Creatinine 0.69 (L) 0.70 - 01/07/2022 [facility] 1.30 mg/dL 12:38 PM CDT GFR Estimate >90 >60 01/07/2022 [facility] mL/min/1.7 12:38 PM CDT 3m2 Comment: Effective 2021 eGF Rcr in adults is calculated using the 2020 CKD-EPI creatinine equation which includ es age and gender (Megan et al., [place], DOI: 10.1056/JYXEdh2473740) Specimen Anatomical Collection Method / Collection Time Recei ry Time (Source) Location / Volume Laterality Blood BLOOD SPECIMEN / Venipuncture / 01/07/2022 12:13 01/07 Unknown Unknown PM CDT 12:22 PM CDT Jason Guzman PA-C LAB - BLOOD ORDERABLES Performing Organization Address City/[facility]/ZIP Code Phon e Number [facility] [place] [address] Potassium (01/07/2022 12:13 PM CDT) athologist Signature Potassium 4.3 3.5 - 5.0 01/07/2022 [facility] mmol/L 12:38 PM CDT Specimen Anatomical Collection Method / Collection Time Recei ry Time (Source) Location / Volume Laterality Blood BLOOD SPECIMEN / Venipuncture / 01/07/2022 12:13 01/07 Unknown Unknown PM CDT 12:22 PM CDT Jason Guzman PA-C LAB - BLOOD ORDERABLES Performing Organization Address City/State/ZIP Code Phon e Number [facility] [place] [address] (ABNORMAL) CBC with platelets (01/07/2022 12:13 PM CDT) [facility] gist Method Time Signature WBC Count 13.2 (H) 4.0 - 11.0 01/07/2022 [facility] 10e3/uL 12:26 PM CDT RBC Count 4.02 (L) 4.40 - 01/07/2022 [facility] 5.90 12:26 PM CDT 10e6/uL Hemoglobin 12.0 (L) 13.3 - 01/07/2022 [facility] 17.7 g/dL 12:26 PM CDT Hematocrit 36.0 (L) 40.0 - 01/07/2022 [facility] 53.0 % 12:26 PM CDT MCV 90 78 - 100 01/07/2022 [facility] fL 12:26 PM CDT MCH 29.9 26.5 - 01/07/2022 [facility] 33.0 pg 12:26 PM CDT MCHC 33.3 31.5 - 01/07/2022 [facility] 36.5 g/dL 12:26 PM CDT RDW 15.2 (H) 10.0 - 01/07/2022 [facility] 15.0 % 12:26 PM CDT Platelet Count 417 150 - 450 01/07/2022 [facility] 10e3/uL 12:26 PM CDT Specimen Anatomical Collection Method / Collection Time Recei ry Time (Source) Location / Volume Laterality Blood BLOOD SPECIMEN / Venipuncture / 01/07/2022 12:13 01/07 Unknown Unknown PM CDT 12:22 PM CDT Jason Guzman PA-C LAB - BLOOD ORDERABLES Performing Organization Address City/State/ZIP Code Phon e Number [facility] [place] [address] [place] [address] POC US Guidance Needle Placement (01/07/2022 12:03 [...] management to improve pain control., Starting on [place] at 0000, May give first dose 4 hours after last scheduled dose of acetaminophen (TYLENOL). Maximum acetaminophen dose from all sources = 75 mg/kg/day not to exceed 4 grams/day. acetaminophen (TYLENOL) tablet 975 mg Given 01/07/2022 12:23 PM CDT 975 mg 975 mg, Oral, ONCE, On [facility] 01/07/22 at 1230, For 1 dose, Maximum acetaminophen dose from all sources = 75 mg/kg/day not to exceed 4 grams/day., Pre-procedure alum & mag hydroxide-simethicone (MAALOX ) suspension 30 mL 30 mL, Oral, EVERY 4 HOURS PRN, indigest ion, Starting on [facility] 01/07/22 at 1701, Shake well. benzocaine-menthol (CEPACOL) [...] 200 mg 200 mg, Oral, ONCE, On [place] 01/07/22 at 1230, For 1 dose, Pre-procedure [...] 01/07/22 at 1730, Until Tue01/08/22 at 1429 Restarted [...] analgesic side effects. Hold while on IV RESEARCH AND INSIGHTS EXECUTIVE or with regular IV opioid dosing. Given [...] esic side effects. Hold while on IV RESEARCH AND INSIGHTS EXECUTIVE or with regular IV opioid dosing. pantoprazole [...] 1400 (Given - Provider: Vandana Padilla APRN CRNA) Routine, 2 g, Intravenous, PRE-OP/PRE-FL OCEDURE, Starting on [place] 01/07/22 at 1203, [...] 1 tablet 2027 (Given - Provider: Karen Feliz, ZAIN) 0900 (Given - Provider: Fatou Trujillo , ZAIN) [...] infusion 1718 (Restarte d - Provider: Lamar Drake RN)1752 (New Bag - Provider: Lamar Drake RN)2050 (Stopped - Provider: Karen Feliz RN) at 125 mL/hr, Intravenous, CONTINUOUS, C hange [...] Lamar Drake RN)2027 (Given - Provider: Karen Feliz, ZAIN) 0.4 mg, Intravenous, EVERY 2 HOURS PRN, [...] 25 mg 190 (Given - Provider: Lamar Drake RN) 25 [...] Wendy Gregg, ZAIN)1304 (Given - Provider: Wendy Gregg, ZAIN) 1 [...] oxyCODONE (ROXICODONE) tablet 10 mg(Linked Group 4) 006 (Given - Provider: Lamar Drake RN)2313 (Given [...] sic side effects. Hold while on IV RESEARCH AND INSIGHTS EXECUTIVE or with regular IV opioid dosing. oxyCODONE (ROXICODONE) tablet 5 mg(Linked Group 4) 1858 (See Alternative - Provider: Lamar Drake RN)231 (See Alternative - Provider: Zara Barrios RN) [...] analgesic side effects. Hold while on IV RESEARCH AND INSIGHTS EXECUTIVE or with regular IV opioid dosing. sodium [...] after each naloxone dose. Consider transfer to [facility] if patient respiratory parameters hav e [...] side effects. Ho ld while on IV RESEARCH AND INSIGHTS EXECUTIVE or with regular IV opioid dosing.
Or oxyCODONE (ROXICODONE) tablet 10 mgJump to med 10 mg, Oral, EVERY 4 HOURS PRN, severe p ain, (pain rating 7-10), Starting on [place] 01/07/22 at 1701
Hold oral PRN dose for analgesic side effects. Notify provider to assess for uncontrolled pain o r analgesic side effects. Hold whi le on IV RESEARCH AND INSIGHTS EXECUTIVE or with regular IV opioid dosing.
documented in this encounter Care Teams Reading Intervention Teacher Relationship Specialty Start Date End Date Tin Hernandez PCP - General Family Medicine 01/06/[address] [place] [address] documented as of this encounter
--- OUTSIDE RECORDS SUMMARY | 2022-02-25 11:24 | XMS_ITS | Clinical Summary ---
:1960 Author Organization [facility] Address [address] [place] [id number] Care Team Providers Name Role Phone Tin Hernandez Maryjane Primary Care Provider Allergies No known active allergies Medications Medication Sig Dispensed Refills Start End Date Status Date aspirin-acetaminop Take 1 tablet 0 Active hen-caffeine by mouth 2 (EXCEDRIN times daily MIGRAINE) as needed LD 250-250-65 MG 8/15 tablet guaiFENesin-codein Take 10 mLs 0 Active e (ROBITUSSIN AC) by mouth 2 2 100-10 MG/5ML times daily solution as needed escitalopram Take 10 mg by 0 Act giovanni (LEXAPRO) 10 MG mouth daily 2 tablet folic acid Take 400 mcg 0 Active (FOLVITE) 400 MCG by mouth 2 tablet daily ondansetron Take 8 mg by 0 Activ e (ZOFRAN) 8 MG mouth 2 times 2 tablet daily as needed tadalafil (CIALIS) Take 20 mg by 0 Active 20 MG tablet mouth daily as needed diltiazem ER Take 240 mg 0 Activ e (DILT-XR) 240 MG by mouth 2 24 hr ER beaded daily capsule albuterol (PROAIR Inhale 2 0 Ac tive HFA/PROVENTIL puffs into 2 HFA/VENTOLIN HFA) the lungs 4 108 (90 Base) times daily MCG/ACT inhaler as needed ipratropium - Inhale 3 mLs 0 Act giovanni albuterol 0.5 into the 2 mg/2.5 mg/3 mL lungs 2 times (DUONEB) 0.5-2.5 daily as (3) MG/3ML neb needed solution omeprazole Take 40 mg by 0 Activ e (PRILOSEC) [address] capsule acetaminophen Take 2 60 tablet 0 Active (TYLENOL) 325 MG tablets (650 2 tabletIndications: mg) by mouth Osteolytic lesion every 4 hours due to metastasis as needed for (H) other (mild pain) rivaroxaban Take 1 tablet 35 tablet 0 Acti ve ANTICOAGULANT (10 mg) by 2 (XARELTO) 10 MG mouth daily TABS tabletIndications: Osteolytic lesion due to metastasis (H) hydrOXYzine Take 1 tablet 30 tablet 0 Acti ve (ATARAX) 25 MG (25 mg) by 2 tabletIndications: mouth every 6 Osteolytic lesion hours as due to metastasis needed for (H) itching or anxiety (with pain, moderate pain) oxyCODONE IR Take 10-20 mg 0 Act giovanni (ROXICODONE) 10 MG by mouth tablet every 4 hours as needed for severe pain colchicine Take 0.6 mg 0 Active (COLCYRS) 0.6 MG by mouth 2 tablet times daily senna-docusate Take 1-2 30 tablet 0 02/08/20 Disco ntinued (SENOKOT-S/PERICOL tablets by 2 22 (Medication MIRNA) 8.6-50 MG mouth 2 times R econciliation tabletIndications: daily Take Clean Up) Osteolytic lesion while on oral due to metastasis narcotics to (H) prevent or treat constipation. polyethylene Take 17 g by 7 packet 0 02/08/20 Disc ontinued glycol (MIRALAX) mouth daily 2 22 ( Medication 17 g Reconcilia tion packetIndications: C lean Up) Osteolytic lesion due to metastasis (H) oxyCODONE Take 1-2 20 tablet 0 02/08/20 Discontinu ed (Dose (ROXICODONE) 5 MG tablets (5-10 2 22 adjustment) tabletIndications: mg) by mouth Osteolytic lesion every 6 hours due to metastasis as needed for (H) moderate to severe pain celecoxib Take 1 14 capsule 0 02/08/20 Discontin ued (CELEBREX) 200 MG capsule (200 2 22 (Medication capsuleIndications mg) by mouth Reconciliation : Osteolytic daily for 14 Melissa n Up) lesion due to days Do not metastasis (H) take within 6 hours of ibuprofen (MOTRIN, ADVIL) or ketorolac (TORADOL) if prescribed. amoxicillin-clavul Take 1 tablet 0 0 Discontinued (Stop anate (AUGMENTIN) by mouth 2 2 22 a t Discharge) 875-125 MG tablet times daily levofloxacin Take 1 tablet 7 tablet 0 02/16/20 Exp ired (LEVAQUIN) 750 MG (750 mg) by 2 22 tabletIndications: mouth daily Malignant neoplasm for 7 days of lung, unspecified laterality, unspecified part of lung (H), SIRS (systemic inflammatory response syndrome) (H) Active Problems Problem Noted Date SIRS (systemic inflammatory response syndrome) 022 Acute respiratory failure with hypoxia 02/07/2022 Malignant neoplasm of lung, unspecified laterality, un specified part of 02/07/2022 lung Osteolytic lesion due to metastasis 01/07/2022 Encounters Date Type Specialty Care Team Description 02/06/2022 - Hospital Encounter Med Surg Burke Morelos MD Acute respiratory failure with hypoxia ( H); 02/08/2022 Gomez Leong Malignant yvonne plasm of lung, unspecified laterality, unspecified part of lung (H); MD Kun SIRS (systemic inflammatory response syn drome) (H) Los Del Real, Steph Carrero MD 02/06/2022 Travel 01/07/2022 Anesthesia Event Surgery Cash Castillo MD 01/07/2022 Surgery Surgery Wayne Humphries MD PROPHYLACTIC INTRAMEDULLARY NAILING OF RIGHT HIP 01/07/2022 Ancillary Procedure Radiology. Cash Castillo MD 01/07/2022 - Hospital Encounter Med [...] Mass Index 27.46 02/06/2022 10:10 PM CDT Plan of Treatment Health Maintenance [...] history exists COLONOSCOPY 02/23/2027 02/23/2017 COLORECTAL CANCER 02/23/2027 SCREENING DTAP/TDAP/TD IMMUNIZATION 03/05/2031 03/05/2021, 12/09/2008 (3 - Td or Tdap) HEPATITIS B IMMUNIZATION Completed 11/23/2013, 07/03/2013, 06/04/2013 LUNG CANCER SCREENING Discontinued 02/07/2022 IPV IMMUNIZATION Aged Out No longer eligi ble based on patient 's age to complete this topic MENINGITIS IMMUNIZATION Aged Out No longe r eligible based on patient 's age to complete this topic Medical Devices Implanted Type Area Lay Out Worker Device Identifier Shelf Model / Expiration Serial / Date Lot Synthes Locking Screw Im Nail 5 X 46mm Metallic Right: SYNTHES [id number] 08/23/2031 [id number] / Implanted: Qty: 1 on 01/07/2022 by Wayne Humphries MD at [facility] Hardware/Anc Hip / hor [id number] Procedures Procedure Name Priority Date/Time Associated Comments [...] are i n the results section. RESPIRATORY PANEL PCR STAT 02/07/2022 9:26 AM Results for this CDT procedure are i n the results section. COVID-19 VIRUS STAT 02/07/2022 9:26 AM Results for this (CORONAVIRUS) BY PCR CDT procedu re are in the results section. RESPIRATORY AEROBIC STAT 02/07/2022 [...] procedur e are in the results section. CBC WITH PLATELETS & STAT 02/06/2022 11:03 Res ults for this DIFFERENTIAL PM CDT procedure are i n the results section. B-TYPE NATRIURETIC Add-On 02/06/2022 11:03 Resul ts for this PEPTIDE ([facility] ONLY) PM CDT proce dure are in the results section. DIFFERENTIAL STAT 02/06/2022 11:03 Results for this PM CDT procedure are i n the results section. CBC WITH PLATELETS AND [...] procedure ar e in the results section. HEMOGLOBIN Routine 01/08/2022 5:36 AM Results f or this CDT procedure are i n the results section. XR SURGERY MARK FLUORO Routine 01/07/2022 3:53 PM Results for this GREATER THAN 5 MIN CDT procedure are in the results section. ANE SPINAL BLOCK FORM Routine 01/07/2022 2:05 PM Results for this CDT procedure are i n the results section. INTERNAL FIXATION, 01/07/2022 2:00 PM Lung cancer FRACTURE, CDT metastatic to bone TROCHANTERIC, HIP, (H) USING PINS OR RODS Lesion of femur Case Notes SYNTHES RECON NAIL LOANERS.N blayne H. [phone] John Wells [phone] Ernestina Goodson [phone] Special Needs C-Arm - Removed C-Arm (confl [...] CDT from Last 3 Months Results (ABNORMAL) Comprehensive metabolic panel (02/08/2022 6:23 AM CDT)Only the most recent of2 resultswithin the time period is included. [facility] Method Time Signature Sodium 135 (L) 136 - 145 02/08/2022 [facility] mmol/L 7:45 AM CDT Potassium 3.9 3.5 - 5.0 02/08/2022 [facility] mmol/L 7:45 AM CDT Chloride 102 98 - 107 02/08/2022 [facility] mmol/L 7:45 AM CDT Carbon Dioxide 22 22 - 31 02/08/2022 [facility] (CO2) mmol/L 7:45 AM CDT Anion Gap 11 5 - 18 02/08/2022 [facility] mmol/L 7:45 AM CDT Urea Nitrogen 17 8 - 22 02/08/2022 [facility] mg/dL 7:45 AM CDT Creatinine 0.60 (L) 0.70 - 02/08/2022 [facility] 1.30 7:45 AM CDT mg/dL Calcium 9.5 8.5 - 02/08/2022 [facility] 10.5 7:45 AM CDT mg/dL Glucose 107 70 - 125 02/08/2022 [facility] mg/dL 7:45 AM CDT Alkaline 106 45 - 120 02/08/2022 [facility] Phosphatase U/L 7:45 AM CDT AST 14 0 - 40 02/08/2022 [facility] U/L 7:45 AM CDT ALT 19 0 - 45 02/08/2022 [facility] U/L 7:45 AM CDT Protein Total 5.7 (L) 6.0 - 8.0 02/08/2022 [facility] g/dL 7:45 AM CDT Albumin 2.0 (L) 3.5 - 5.0 02/08/2022 [facility] g/dL 7:45 AM CDT Bilirubin Total 0.3 0.0 - 1.0 02/08/2022 [facility] mg/dL 7:45 AM CDT GFR Estimate >90 >60 02/08/2022 [facility] mL/min/1. 7:45 AM CDT 73m2 Comment: Effective 2021 eGF Rcr in adults is calculated using the 2020 CKD-EPI creatinine equation which includ es age and gender (Megan et al., NEJM, DOI: 10.1056/GITGkf5963091) Specimen Anatomical Collection Method / Collection Time Recei ry Time (Source) Location / Volume Laterality Blood STRUCTURE OF LEFT Venipuncture / 02/08/2022 6:23 02/08 7:15 HAND / Unknown Unknown AM CDT AM CDT [place] DO LAB - BLOOD ORDERABLES Performing Organization Address City/State/ZIP Code Phon e Number [facility] [place] [address] [facility] [address] (ABNORMAL) CBC with platelets (02/08/2022 6:23 AM CDT)Only the most recent of2 resultswithin the time period is included. [facility] gist Method Time Signature WBC Count 3.5 (L) 4.0 - 11.0 02/08/2022 [facility] 10e3/uL 7:19 AM CDT RBC Count 3.39 (L) 4.40 - 02/08/2022 [facility] 5.90 7:19 AM CDT 10e6/uL Hemoglobin 9.8 (L) 13.3 - 02/08/2022 [facility] 17.7 g/dL 7:19 AM CDT Hematocrit 30.7 (L) 40.0 - 02/08/2022 [facility] 53.0 % 7:19 AM CDT MCV 91 78 - 100 02/08/2022 [facility] fL 7:19 AM CDT MCH 28.9 26.5 - 02/08/2022 [facility] 33.0 pg 7:19 AM CDT MCHC 31.9 31.5 - 02/08/2022 [facility] 36.5 g/dL 7:19 AM CDT RDW 14.7 10.0 - 02/08/2022 [facility] 15.0 % 7:19 AM CDT Platelet Count 241 150 - 450 02/08/2022 [facility] 10e3/uL 7:19 AM CDT Specimen Anatomical Collection Method / Collection Time Recei ry Time (Source) Location / Volume Laterality Blood STRUCTURE OF LEFT Venipuncture / 02/08/2022 6:23 02/08 7:15 HAND / Unknown Unknown AM CDT AM CDT [place] DO LAB - BLOOD ORDERABLES Performing Organization Address City/State/ZIP Code Phon e Number [facility] [place] [address] [place] [address] ECHO COMPLETE WITH CONTRAST (02/07/2022 2:39 PM CDT) athologist Signature LVEF 55-60% CARDIOLOGY RESULTS Anatomical Region Laterality Modality Ultrasound Specimen (Source) Anatomical Collection Method Collection Time Re ceived Time Location / / Volume Laterality 02/07/2022 1:33 PM CDT Narrative 02/08/2022 8:39 AM CDT [id number]^[address]EN[address] [address] Name: CASH TINOCO : 1960 Study Date: 02/07/2022 01:33 PM Age: 61 yrs Gender: Male Patient Location: [facility] Reason For Study: Chest Pain Ordering Physician: STEPH LOTT Performed By: PILY BSA: 1.8 m2 Height: 65 in Weight: 165 lb HR: 80 Procedure Complete Echo Adult. Definity ([facility] #[id number]) given intravenously. Interpretation Summary Left ventricular size, [...] Doppler Measurements & Calculations MV E max tam: 81.0 cm/sec MV A max tam: 94.0 cm/sec MV E/A: 0.86 MV dec [...] PA acc time: 0.11 sec TR max tam: 257.9 cm/sec TR max P.6 mmHg AV Tam Ratio (DI): 0.92 MANJULA Index (cm2/m2): 2.2 E/E': 14.0 E/E' av.8 Lateral E/e': 9.5 Medial E/e': 14.0 Peak E' Tam: 5.8 cm/sec Report approved by: Christiana Ford 01/23 08:39 AM Procedure Note Ele Slade MD - 02/08/2022 [id number]^OREN^[place] [address] Name: CASH TINOCO : 1960 Study Date: 02/07/2022 01:33 PM Age: 61 yrs Gender: Male Patient Location: [facility] Reason For Study: Chest Pain Ordering Physician: STEPH LOTT Performed By: PILY BSA: 1.8 m2 Height: 65 in Weight: 165 lb HR: 80 Procedure Complete Echo Adult. Definity ([facility] #[id number]) given intravenously. Interpretation Summary Left [...] Doppler Measurements & Calculations MV E max tam: 81.0 cm/sec MV A max tam: 94.0 cm/sec MV E/A: 0.86 MV dec [...] PA acc time: 0.11 sec TR max tam: 257.9 cm/sec TR max P.6 mmHg AV Tam Ratio (DI): 0.92 MANJULA Index (cm2/m2): 2.2 E/E': 14.0 E/E' av.8 Lateral E/e': 9.5 Medial E/e': 14.0 Peak E' Tam: 5.8 cm/sec Report approved by: Christiana Ford 01/23 08:39 AM Steph Lott MD CV ECHO ORDERABLES Asymptomatic COVID-19 Virus (Coronavirus) by PCR Nose (02/07/2022 9:26 AM CDT) Analysis Performed At Patho logist Time Signature SARS CoV2 PCR Negative Negative 02/07/2022 [facility] 10:19 AM CDT Comment: NEGATIVE: SARS-CoV-2 (COVID-19) RNA not detected, presumed negative. Specimen Anatomical Collection Method Collection Time Receive d Time (Source) Location / / Volume Laterality Swab NASAL STRUCTURE / Non-blood 02/07/2022 9:26 AM 01/23 9:31 Unknown Collection / CDT AM CDT Unknown Narrative [facility] - 02/07/2022 10:19 AM CDT Testing was performed using the Xpert Xpress SARS-CoV-2 Assay on the [employer]Xpert Instrument Systems. A dditional information about this [...] COVID-19. This test was validated by the [facility]. This laboratory is certified under the Clinical Laboratory Improvement Amendments of 1988 (CLIA-88) as qualified to perform high complexity laboratory testing. Steph Lott MD LAB - MICRO GENERAL ORDERABL ES Performing Organization Address City/State/ZIP Code Phon e Number [facility] [place] [address] [facility] Rocky Hassan (ABNORMAL) Respiratory Panel PCR (02/07/2022 9:26 AM CDT) [facility] Method Time Signature Adenovirus Not Detected Not Detected 02/07/2022 [facility] 5:34 PM CDT LABORATORY Coronavirus Not Detected Not Detected 02/07/2022 [facility] 5:34 PM CDT LABORATORY Comment: This test detects Coronavirus 2 29E, HKU1, NL63 and OC43 but does not distinguish between them. It does not de tect MERS ( Respiratory Syndrome), SARS (Severe Acute Respirator y Syndrome) or 2019-nCoV (Novel 2019) Coronavirus. Human Metapneumovirus Not Detected Not Detected [...] ap proval for the testing of nasopharyngeal (PATENT ENGINEER) swabs only. The Infectious Diseases Diag nostic Laboratory at [facility] has validated the performance characteristic s for [...] Code Phon e Number [facility] LABORATORY [facility] [place] [address] Diag. Lab [address] [facility], Room D297 (ABNORMAL) Respiratory Aerobic Bacterial Culture with Gram [...] Code Phon e Number [facility] [place] [address] Diag. Lab [address] [facility], Room D297 CT Abdomen Pelvis w Contrast (02/07/2022 12:22 AM CDT) Anatomical Region Laterality Modality Abdomen/Pelvis, SUBRAD CT BODY, P CT ABDOMEN PELVIS, Computed Tomography RAD CT [...] CT CHEST PULMONARY EMBOLISM W CONTRAST [facility] DATE/TIME: 02/07/2022 12:22 AM INDICATION: Right chest [...] ng 2.9 cm which destroys the left carbonizer tester ior 12th rib was not included in the ypncr-xx-grqa o n 11/17/2021 but is new from [...] C HEST PULMONARY EMBOLISM W CONTRAST LOCATION: [facility] DATE/TIME: 02/07/2022 12:22 AM INDICATION: Right [...] 12th rib was not included in the wgvdm-lv-dzrx o n 11/17/2021 but is new from [...] is probably a metastasis. Burke Morelos MD [facility] CT ORDERABLES CT Chest Pulmonary Embolism w [...] CT CHEST PULMONARY EMBOLISM W CONTRAST LOCATION: [facility] DATE/TIME: 02/07/2022 12:22 AM INDICATION: Right [...] ng 2.9 cm which destroys the left carbonizer tester ior 12th rib was not included in the [id number]-ur-xdde o n 11/17/2021 but is new from [...] C HEST PULMONARY EMBOLISM W CONTRAST LOCATION: [facility] DATE/TIME: 02/07/2022 12:22 AM INDICATION: Right chest [...] 12th rib was not included in the qojeb-gl-qgmc o n 11/17/2021 but is new from [...] is probably a metastasis. Burke Morelos MD [facility] CT ORDERABLES B-Type Natriuretic Peptide ([facility] Only) (02/06/2022 11:03 PM CDT) athologist Signature BNP 33 0 - 53 02/07/2022 [facility] pg/mL 2:47 AM CDT Specimen Anatomical Collection Method / Collection Time Recei ry Time (Source) Location / Volume Laterality Blood STRUCTURE OF RIGHT Venipuncture / 02/06/2022 11:03 UPPER LIMB / Unknown PM CDT 11:08 PM CDT Unknown [place] DO LAB - BLOOD ORDERABLES Performing Organization Address City/State/ZIP Code Phon e Number [facility] [place] [address] [facility] Rocky Hassan (ABNORMAL) CBC with platelets and differential (02/06/2022 11:03 PM CDT) Patholo gist Method Time Signature WBC Count 5.7 4.0 - 11.0 02/07/2022 [facility] 10e3/uL 12:04 AM CDT RBC Count 3.63 (L) 4.40 - 02/07/2022 [facility] 5.90 12:04 AM CDT 10e6/uL Hemoglobin 10.7 (L) 13.3 - 02/07/2022 [facility] 17.7 g/dL 12:04 AM CDT Hematocrit 32.9 (L) 40.0 - 02/07/2022 [facility] 53.0 % 12:04 AM CDT MCV 91 78 - 100 02/07/2022 [facility] fL 12:04 AM CDT MCH 29.5 26.5 - 02/07/2022 [facility] 33.0 pg 12:04 AM CDT MCHC 32.5 31.5 - 02/07/2022 [facility] 36.5 g/dL 12:04 AM CDT RDW 14.6 10.0 - 02/07/2022 [facility] 15.0 % 12:04 AM CDT Platelet Count 213 150 - 450 02/07/2022 [facility] 10e3/uL 12:04 AM CDT Specimen Anatomical Collection Method / Collection Time Recei ry Time (Source) Location / Volume Laterality Blood STRUCTURE OF RIGHT Venipuncture / 02/06/2022 11:03 UPPER LIMB / Unknown PM CDT 11:08 PM CDT Unknown Burke Morelos MD LAB - BLOOD ORDERABLES Performing Organization Address City/State/ZIP Code Phon e Number [facility] [place] [address] [facility] [address] Troponin I (02/06/2022 11:03 PM CDT) P athologist Signature Troponin I 0.02 0.00 - 0.29 02/06/2022 [facility] ng/mL 11:38 PM CDT Specimen Anatomical Collection Method / Collection Time Recei ry Time (Source) Location / Volume Laterality Blood STRUCTURE OF RIGHT Venipuncture / 02/06/2022 11:03 UPPER LIMB / Unknown PM CDT 11:08 PM CDT Unknown Burke Morelos MD LAB - BLOOD ORDERABLES Performing Organization Address City/[facility]/[place] [address] INR (02/06/2022 11:03 PM CDT)Only the most recent of2 resultswithin the time period is included. P athologist Signature INR 1.10 0.85 - 1.15 02/06/2022 [facility] 11:19 PM CDT Specimen Anatomical Collection Method / Collection Time Recei ry Time (Source) Location / Volume Laterality Blood STRUCTURE OF RIGHT Venipuncture / 02/06/2022 11:03 UPPER LIMB / Unknown PM CDT 11:08 PM CDT Unknown Burke Morelos MD LAB - BLOOD ORDERABLES Performing Organization Address City/[facility]/[place] [address] Lactic acid whole blood (02/06/2022 11:03 PM CDT) athologist Signature Lactic Acid 0.9 0.7 - 2.0 02/06/2022 [facility] mmol/L 11:17 PM CDT Specimen Anatomical Collection Method / Collection Time Recei ry Time (Source) Location / Volume Laterality Blood STRUCTURE OF RIGHT Venipuncture / 02/06/2022 11:03 UPPER LIMB / Unknown PM CDT 11:08 PM CDT Unknown Burke Morelos MD LAB - BLOOD ORDERABLES Performing Organization Address City/[facility]/[place] [address] (ABNORMAL) Manual Differential (02/06/2022 11:03 PM CDT) [facility] gist Method Time Signature % Neutrophils 85 % 02/07/2022 [facility] 12:04 AM LABORATORY CDT % Lymphocytes 7 % 02/07/2022 [facility] 12:04 AM LABORATORY CDT % Monocytes 8 % 02/07/2022 [facility] 12:04 AM LABORATORY CDT % Eosinophils 0 % 02/07/2022 [facility] 12:04 AM LABORATORY CDT % Basophils 0 % 02/07/2022 [facility] 12:04 AM LABORATORY CDT Absolute 4.8 1.6 - 8.3 02/07/2022 [facility] Neutrophils 10e3/uL 12:04 AM LABORATORY CDT Absolute 0.4 (L) 0.8 - 5.3 02/07/2022 [facility] Lymphocytes 10e3/uL 12:04 AM LABORATORY CDT Absolute 0.5 0.0 - 1.3 02/07/2022 [facility] Monocytes 10e3/uL 12:04 AM LABORATORY CDT Absolute 0.0 0.0 - 0.7 02/07/2022 [facility] Eosinophils 10e3/uL 12:04 AM LABORATORY CDT Absolute 0.0 0.0 - 0.2 02/07/2022 [facility] Basophils 10e3/uL 12:04 AM LABORATORY CDT RBC Morphology Confirmed RBC 02/07/2022 [facility] Indices 12:04 AM LABORATORY CDT Platelet Automated Automated 02/07/2022 [facility] Assessment Count Count 12:04 AM LABORATORY Confirmed. [...] Organization Address City/State/ZIP Code Phon e Number [facility] [place] [address] [facility] [address] (ABNORMAL) CRP inflammation (02/06/2022 11:03 PM CDT)Only the most recent of2 resultswithin the time period is included. P athologist Signature CRP 29.2 (H) 0.0 - <0.8 02/06/2022 [facility] mg/dL 11:28 PM CDT Specimen Anatomical Collection Method / Collection Time Recei ry Time (Source) Location / Volume Laterality Blood STRUCTURE OF RIGHT Venipuncture / 02/06/2022 11:03 UPPER LIMB / Unknown PM CDT 11:08 PM CDT Unknown Burke Morelos MD LAB - BLOOD ORDERABLES Performing Organization Address [facility]/ZIP Code Phon e Number [facility] [place] [address] [place] (ABNORMAL) Hemoglobin (01/08/2022 5:36 AM CDT) athologist Signature Hemoglobin 10.7 (L) 13.3 - 01/08/2022 [facility] 17.7 g/dL 5:42 AM CDT Specimen Anatomical Collection Method / Collection Time Recei ry Time (Source) Location / Volume Laterality Blood STRUCTURE OF RIGHT Venipuncture / 01/08/2022 5:36 12/24 5:39 UPPER LIMB / Unknown AM CDT AM CDT Unknown Jason Suero PA-C LAB - BLOOD ORDERABLES Performing Organization Address [facility]/ZIP [facility] [place] [place] Phon e Number [facility] [place] [address] [facility] Terre Hautetrace Hassan XR Surgery MARK Fluoro G/T 5 Min (01/07/2022 3:53 PM CDT) Specimen (Source) Anatomical Location Collection Method / Collectio n Time Received Time / Laterality Volume Narrative [facility] - 01/07/2022 3:56 PM CDT This exam was marked as non-reportable because it will not be read by a radiologist or a [facility] non-radiologis t provider. Wayne Humphries MD IMG DIAGNOSTIC IMAGING ORDER DUNG Performing Organization Address [facility] Phon e Number [facility] Spinal Block (01/07/2022 [...] Administration Time: 2:05 PM Coleman Oneill MD MD ANESTHESIA Adult Type and Screen (01/07/2022 12:13 PM CDT) [facility] Time Signature ABO/RH(D) O POS 01/07/2022 [facility] BLOOD 12:15 PM BANK CDT Antibody Negative Negative 01/07/2022 [facility] BLOOD Screen 12:15 PM BANK CDT SPECIMEN [id number] 01/07/2022 [facility] BLOOD EXPIRATION 12:15 PM BANK DATE CDT Specimen Anatomical Collection Method / Collection Time Recei ry Time (Source) Location / Volume Laterality Blood BLOOD SPECIMEN / Venipuncture / 01/07/2022 12:13 01/07 Unknown Unknown PM CDT 12:22 PM CDT Jason Suero PA-C LAB - BLOOD BANK TEST ORDER Performing Organization Address City/State/ZIP Code Phon e Number [facility] BLOOD BANK [address] [place], [place] [id number] Potassium (01/07/2022 12:13 PM CDT) P athologist Signature Potassium 4.3 3.5 - 5.0 01/07/2022 [facility] mmol/L 12:38 PM CDT Specimen Anatomical Collection Method / Collection Time Recei ry Time (Source) Location / Volume Laterality Blood BLOOD SPECIMEN / Venipuncture / 01/07/2022 12:13 01/07 Unknown Unknown PM CDT 12:22 PM CDT Jason Suero PA-C LAB - BLOOD ORDERABLES Performing Organization Address City/[facility]/ZIP Code Phon e Number [facility] [place] [address] (ABNORMAL) Erythrocyte sedimentation rate auto (01/07/2022 12:13 PM CDT) Patholo gist Method Time Signature Erythrocyte 25 (H) 0 - 15 01/07/2022 [facility] Sedimentation Rate mm/hr 1:07 PM CDT Specimen Anatomical Collection Method / Collection Time Recei ry Time (Source) Location / Volume Laterality Blood BLOOD SPECIMEN / Venipuncture / 01/07/2022 12:13 01/07 Unknown Unknown PM CDT 12:22 PM CDT Jason Suero PA-C LAB - BLOOD ORDERABLES Performing Organization Address City/[facility]/ZIP Code Phon e Number [facility] [place] [address] (ABNORMAL) Creatinine (01/07/2022 12:13 PM CDT) P athologist Signature Creatinine 0.69 (L) 0.70 - 01/07/2022 [facility] 1.30 mg/dL 12:38 PM CDT GFR Estimate >90 >60 01/07/2022 [facility] mL/min/1.7 12:38 PM CDT 3m2 Comment: Effective 2021 eGF Rcr in adults is calculated using the 2020 CKD-EPI creatinine equation which includ es age and gender (Megan et al., NEJM, DOI: 10.1056/JYDDti1258922) Specimen Anatomical Collection Method / Collection Time Recei ry Time (Source) Location / Volume Laterality Blood BLOOD SPECIMEN / Venipuncture / 01/07/2022 12:13 01/07 Unknown Unknown PM CDT 12:22 PM CDT Jason Suero PA-C LAB - BLOOD ORDERABLES Performing Organization Address City/State/ZIP Code Phon e Number [facility] [place] [address] [address] POC US Guidance Needle Placement [...] view procedure note a uthored by anesthesia. Cash Castillo MD IMG POCUS Performing Organization Address [...] Address T ype Group Dates MEDICARE MEDICARE [id number] 2021-Prese [phone] ATTN CLAI MS Medicare nt 40 [address] [place] [address] [place]BS [place] [id number] 2021-Prese [phone] [address] [place] [address] Indemnity nt [address] [place] [address] Advance Directives For more information, please contact: [phone] Latest Code Status on File Code Status Date Activated Date Inactivated Comments Full Code 02/07/2022 2:11 AM 02/08/2022 4:26 PM All basic and advanced life-sustaining interventions are performed as norbert ropriate Question Answer Comments Code status determined by: Discussion with patient/ legal de cision maker Code Status History Code Status Date Activated Date Inactivated Comments Full Code 01/07/2022 5:02 PM 01/08/2022 2:29 PM All basic an d advanced life-sustaining interventions are performed as norbert ropriate Question Answer Comments Code status determined by: Discussion with patient/ legal de cision maker Care Teams Policy Value Calculator Relationship Specialty Start Date End Date Tin Hernandez PCP - General Family Medicine 01/06/[address] [place] [address]
--- OUTSIDE RECORDS SUMMARY | 2022-02-25 11:24 | XMS_ITS | Encounter Summary ---
:1960 Author Organization [place] Address [address] [place] [address] Care Team Providers Name Role Phone Tin Hernandez Primary Care Provider Encounter Details Date Type Department Care Team Description 01/07/2022 Ancillary Procedure [facility] Ul[facility] [address] [place], [place] [phone] (Wo rk) [address] Social History Tobacco Use [...] on filedocumented in this encounter Care Teams Photographic Developer And Printer Relationship Specialty Start Date End Date Tin Hernandez PCP - General Family Medicine 01/06/[address] [place] [address] documented as of this encounter
--- OUTSIDE RECORDS SUMMARY | 2022-02-25 11:25 | XMS_ITS | Encounter Summary ---
:1960 Author Organization [facility] Address [address] [place] [address] Care Team Providers Name Role Phone Unavailable Primary Care Provider Unavailable Encounter Details Date Type Department Care Team Description 01/26/2022 Hospital Encounter Department of Radiation Delilah Sanchez I., Oncology in [place] [address] [facility] [address] [place] [address] [phone] Social History Tobacco Use Types Packs/Day Years [...] one Less than mo nthly 08/23/2021 occasion? Social Isolation Answer Date Recorded In a typical week, how many times do you More than three los es a week 08/23/2021 talk on the phone with family, friends, or neighbors? How often do you get together with friends Once a week 08/23/2021 or relatives? How often do you attend jew or Never 2021 oriental orthodox services? Do you belong to any clubs or No 08/23/2021 organizations such as jew groups, unions, fraternal or athletic groups, or [...] place to sleep or slept in a fci (including now)? Education Answer Date Recorded What [...]
--- OUTSIDE RECORDS SUMMARY | 2022-02-25 11:25 | XMS_ITS | Encounter Summary ---
:1960 Author Organization [facility] Address [address] [place] [address] Care Team Providers Name Role Phone Unavailable Primary Care Provider Unavailable Encounter Details Date Type Department Care Team Description 11/24/2021 Hospital Encounter Department of Radiation Delilah Sanchez I., Oncology in [place] [address] [facility] [address] [place] [address] [phone] Social History Tobacco Use Types Packs/Day Years [...] or relatives? How often do you attend scientologist or Never 2021 evangelical services? Do you belong to any clubs or No 08/23/2021 organizations such as scientologist groups, unions, fraternal or athletic groups, or [...] or the highest technical, or vocational p [facility] degree you have received? Sex Assigned at Date Recorded Male 08/23/2021 10:27 AM CDT documented as of this encounter Medications at Time of Discharge Medication Sig Dispensed Refills Start Date End Date albuterol 90 Inhale 2 puffs. 0 11/20/2021 mcg/actuation inhaler albuterol 90 Inhale 2 puffs as 0 11/20/2021 mcg/actuation inhaler needed. [id number]-yafyoynmkehbj-hu Take 1 tablet by 0 ffeine (EXCEDRIN [...]
--- OUTSIDE RECORDS SUMMARY | 2022-02-25 11:25 | XMS_ITS ---
:1960 Author Organization [facility] Address [address] [place] [address] Care Team Providers Name Role Phone Unavailable [...] Prescribed Total On Treated Fraction Dose Dose [id number] 01/27/2022 6 5 of 5 400 cGy 2,000 cGy [id number] 01/27/2022 6 5 of 5 400 cGy 2,000 cGy A8PcvaL 11/24/2021 13 5 of 5 400 cGy 2,000 cGy [id number] 11/11/2021 0 1 of 1 2,000 cGy 2,000 cGy Reference Point Last Treated On Elapsed Days Session Dose Total Dos e [id number] Lscap 01/27/2022 6 400 cGy 2,000 cGy [id number] Rfemur 01/27/2022 6 400 cGy 2,000 cGy dpv 2000x 11/24/2021 13 400 cGy 2,000 cGy dpv 2000x GRID 11/11/2021 0 2,000 cGy 2,000 cGy
--- OUTSIDE RECORDS SUMMARY | 2022-02-25 11:25 | XMS_ITS | Encounter Summary ---
:1960 Author Organization [facility] Address [address] [place] [address] Care Team Providers Name Role Phone Unavailable Primary Care Provider Unavailable Encounter Details Date Type Department Care Team Description 01/27/2022 Documentation Department of Radiation Aidee Sanchez I., [facility] [place] [address] [facility] [address] [place] [phone] (Wo rk) Social History Tobacco Use Types [...] or relatives? How often do you attend hoahaoism or Never 2021 protestant services? Do you belong to any clubs or No 08/23/2021 organizations such as hoahaoism groups, unions, fraternal or athletic groups, or [...] or the highest technical, or vocational p [facility] degree you have received? Sex Assigned at Date Recorded Male 08/23/2021 10:27 AM CDT documented as of this encounter Miscellaneous Notes Radiation Completion Notes - Lucero Whitaker R.N. - 01/27/2022 11:59 PM CDT DIAGNOSIS: 1. 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 Treatment Intent: Palliative Concomitant Therapy: None Single Plan Treatment Course: 2xMultiSite Plan ID Fractions Dose / Fraction (cGy) Dose Treated (cGy) Dose Planned (cGy) First Treatment Last Treatment Elapsed Days [id number] 5 / 400 199901/21/2022 01/27/2022 6 D7VkyllJ / 400 199901/21/2022 01/27/2022 6 Course Summary 01/21/2022 01/27/2022 6 Radiation Modality: Photons CLINICAL SUMMARY Mr. Hector Norris completed radiation treatment as planned without interruptions. The course of treatment was tolerated well. The patient experienced muscle aches during radiation treatment. TREATMENT RESPONSE: Response to treatment will be determined by post-treatment imaging and/or laboratory work. RECOMMENDED FOLLOW UP: Primary Medical Oncologist. Follow-up will be with Dr. Jarrett. Signed by: Lucero Whitaker R.N., 02/05/2022 10:24 AM CDT [facility] [address] [place] [address] documented in this encounter Plan of Treatment Not on filedocumented as of this encounter Visit Diagnoses Diagnosis Malignant Neoplasm Of Lung Middle Lobe O r Bronchus (HCC) - Primary documented in this encounter
--- OUTSIDE RECORDS SUMMARY | 2022-02-25 11:25 | XMS_ITS | Encounter Summary ---
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 [facility] Procedures Management Visit [address] [place] [address] Referral ID Status Reason Start Date Expiration Date Visits V isits Requested Authorized [id number] Authorized 11/03/2021 11/03/2022 10 10 Encounter Details Date Type Department Care Team Description 11/24/2021 - Hospital Encounter Department of Le[place], Malignan t Neoplasm 12/18/2021 Radiation Oncology Los Childress M.D. Of Right [facility] in [place], [facility] [address] [facility] Bronchus (HCC) [place], [place] [address] [facility] [address] [place], [place] [phone] [address] (Work) [phone] Social History Tobacco Use Types Packs/Day Years [...] or relatives? How often do you attend zoroastrian or Never 2021 taoism services? Do you belong to any clubs or No 08/23/2021 organizations such as zoroastrian groups, unions, fraternal or athletic groups, or [...] puffs as 0 11/20/2021 mcg/actuation inhaler needed. kmkjzfh-ifmpladdzpqxt-us Take 1 tablet by 0 ffeine (EXCEDRIN [...] (cGy) First Treatment Last Treatment Elapsed Days [id number] 199911/11/2021 11/11/2021 0 B6OtdmS 400 199911/12/2021 11/24/2021 12 Course Summary 11/11/2021 [...] Cycle 1 pemetrexed and carboplatin administered at [facility] in [place]. 10/05/21: Cycle 2 pemetrexed, carboplatin, and pembrolizumab administered at [facility]. Pembrolizumab / PEMEtrexed / CARBOplatin Start [...] doing well overall. We encouraged patient to coal picker DuoNeb prescription. [facility] will see patient next week to follow [...] with our colleagues in Medical Oncology at [facility] and likely with Dr. Sanchez in December. He will continue with treatment as planned. Signed by: Los Wen M.D. 12/18/2021 12:41 PM CDT [facility] [address] [place] [address] documented in this encounter Plan of Treatment [...]
--- OUTSIDE RECORDS SUMMARY | 2022-02-25 11:25 | XMS_ITS | Encounter Summary ---
:1960 Author Organization [facility] Address [address] [place] [address] Care Team Providers Name Role Phone Unavailable Primary Care Provider Unavailable Encounter Details Date Type Department Care Team Description 01/25/2022 Hospital Encounter Department of Radiation Delilah Sanchez I., Oncology in [place] [address] [facility] [address] [place] [phone] [phone] Social History Tobacco Use Types Packs/Day Years [...] do you attend anabaptism or Never 2021 latter-day services? Do you belong to any clubs [...] or the highest technical, or vocational p [facility] degree you have received? Sex Assigned at Date Recorded Male 08/23/2021 10:27 AM CDT documented as of this encounter Medications at Time of Discharge Medication Sig Dispensed Refills Start Date End Date albuterol 90 Inhale 2 puffs. 0 11/20/2021 mcg/actuation inhaler albuterol 90 Inhale 2 puffs as 0 11/20/2021 mcg/actuation inhaler needed. mdzaoet-vlzgvfsunruvg-vk Take 1 tablet by 0 ffeine (EXCEDRIN [...]
--- OUTSIDE RECORDS SUMMARY | 2022-02-25 11:25 | XMS_ITS | Encounter Summary ---
:1960 Author Organization [facility] Address [address] [place] [address] Care Team Providers Name Role Phone Unavailable Primary Care Provider Unavailable Reason for Visit Reason Comments Follow-up Encounter Details Date Type Department Care Team Description 12/09/2021 Clinical Communication Department of Aidee Sanchez Radiation Oncology in [place], [place] [address] [facility] [address] [place] [address] [phone] Social History Tobacco Use Types Packs/Day Years [...] do you attend gnosticism or Never 2021 buddhism services? Do you [...] this encounter Miscellaneous Notes Telephone Encounter - Lucero Whitaker R.N. - 12/09/2021 3:27 PM CDT [...] patient to answer his questions. Phone number: [phone] Is it okay to leave a voicemail on answering machine with test results? Yes Pharmacy (if medication related): N/A documented in this encounter Plan of Treatment Not on filedocumented as of this encounter Visit Diagnoses Not on filedocumented in this encounter
--- OUTSIDE RECORDS SUMMARY | 2022-02-25 11:25 | XMS_ITS | Encounter Summary ---
:1960 Author Organization [facility] Address [address] [place] [address] Care Team Providers Name Role Phone Unavailable Primary Care Provider Unavailable Encounter Details Date Type Department Care Team Description 01/21/2022 Hospital Encounter Department of Radiation Delilah Sanchez I., Oncology in [place] [address] [facility] [address] [place] [address] [phone] Social History Tobacco Use Types Packs/Day Years [...] do you attend rastafarian or Never 2021 judaism services? Do you [...] or the highest technical, or vocational p [facility] degree you have received? Sex Assigned at Date Recorded Male 08/23/2021 10:27 AM CDT documented as of this encounter Medications at Time of Discharge Medication Sig Dispensed Refills Start Date End Date albuterol 90 Inhale 2 puffs. 0 11/20/2021 mcg/actuation inhaler albuterol 90 Inhale 2 puffs as 0 11/20/2021 mcg/actuation inhaler needed. izwjqvv-wtfjodcymzrlp-ym Take 1 tablet by 0 ffeine (EXCEDRIN [...]
--- OUTSIDE RECORDS SUMMARY | 2022-02-25 11:25 | XMS_ITS | Clinical Summary ---
:1960 Author Organization [facility] Address [address] [place] [address] Care Team Providers Name Role Phone Unavailable Primary Care Provider Unavailable Source Comments Patient records contain information from all sites at [facility]. For routine questions regarding patient records, call [phone] during business hours, M-F 8:00 AM - 5:00 PM Central Time. Record requests for emergency care only can be directed to [phone] at any time.[facility] Allergies No known active allergies Medications Medication [...] Description 01/27/2022 Hospital Encounter Radiation Aidee Sanchez M.D. 01/27/2022 Documentation Radiation Aidee Sanchez M.D. 01/26/2022 Hospital Encounter Radiation Aidee Sanchez M.D. 01/26/2022 Hospital Encounter Radiation Aidee Sanchez Malign ant Neoplasm Of Lung Middle Lobe Or Bronchus (HCC); Oncology Tj Covarrubias Secondary Malig nant Neoplasm Bone (HCC) 01/25/2022 Hospital Encounter Radiation Aidee Sanchez M.D. 01/22/2022 Hospital Encounter Radiation Aidee Sanchez M.D. 01/21/2022 Hospital Encounter Radiation Aidee Sanchez M.D. 01/15/2022 Hospital Encounter Radiation Aidee Sanchez Malign [...] Sanchez Follow-up Communication Oncology Tj Covarrubias 11/24/2021 - Hospital Encounter Radiation Los Wen Malign ant Neoplasm 12/18/2021 Oncology Tj Childress Of Right Main Bronchus (HCC) from Last 3 Months Family History Medical [...] do you attend islam or Never 2021 mosque services? Do you belong to any clubs or No 08/23/2021 organizations such as islam groups, unions, fraMentor Me or athletic groups, or school groups? How [...] Screening 10/05/2022 10/05/2017 Fasting Glucose for Diabetes 02/08/2025 02/08/2022, 022, Screening 09/15/2021, Additional history exists DTaP,Tdap,and Td Vaccines (3 - Td 03/05/2031 03/05/2021, or Tdap) Medical Devices Implanted Type Area Chemistry Laboratory Technician Device Shelf Model / Identifier Expiration Serial / Date Lot Hardware E.G. Hardware e.g. Back Pins/Screws/Ro pins/screws/r ds ods Description: Pins in lower back. Knee Implant Knee Implant Knee Procedures Procedure Name Priority Date/Time Associated Comments Diagnosis ARIA COURSE COMPLETE Routine 01/27/2022 3:15 PM R esults for this TREATMENT INFORMATION CDT proced ure are in the results section. ARIA DAILY TREATMENT Routine 01/27/2022 3:15 PM R esults for this INFORMATION CDT procedure are i n the results section. ARIA DAILY TREATMENT Routine 01/26/2022 4:23 PM R esults for this INFORMATION CDT procedure are i n the results section. ARIA DAILY TREATMENT Routine 01/25/2022 10:21 Res ults for this INFORMATION AM CDT procedure are i n the results section. ARIA DAILY TREATMENT Routine 01/22/2022 10:05 Res ults for this INFORMATION AM CDT procedure are i n the results section. ARIA DAILY TREATMENT Routine 01/21/2022 1:30 PM R esults for this INFORMATION CDT procedure are i n the results section. ARIA COURSE COMPLETE Routine 01/21/2022 10:49 Res ults [...] section. from Last 3 Months Results Aria Course Complete Treatment Information (01/27/2022 3:15 PM CDT)Only the most recent of2 resultswithin the time period is included. Vitrina Method Time Signature Course ID [id number] BANEGAS ARIA e Course Start 01/15/2022 BANEGAS ARIA Date 12:13 CDT Course End Date 02/05/2022 BANEGAS ARIA 11:23 CDT First Treatment 01/21/2022 BANEGAS ARIA Date 12:57 CDT Last Treatment 01/27/2022 BANEGAS ARIA Date 15:15 CDT Treatment 6 BANEGAS ARIA Elapsed Days Reference Point [id number] BANEGAS ARIA Lscap Dosage Given to 1999 BANEGAS ARIA Date cGy Reference Point [id number] BANEGAS ARIA Rfemur Dosage Given to 1999 BANEGAS ARIA Date cGy Plan ID [id number] BANEGAS ARIA Fractions 5 BANEGAS ARIA Treated to Date Planned Total 5 BANEGAS ARIA Fractions Prescribed Dose 400 BANEGAS ARIA Per Fraction Prescription 1999 BANEGAS ARIA Dose in cGy Plan Primary [id number] BANEGAS ARIA Reference Point Lscap Plan ID [id number] BANEGAS ARIA Fractions 5 BANEGAS ARIA Treated to Date Planned Total 5 BANEGAS ARIA Fractions Prescribed Dose 400 BANEGAS ARIA Per Fraction Prescription 1999 BANEGAS ARIA Dose in cGy Plan Primary [id number] BANEGAS ARIA Reference Point Rfemur Specimen (Source) Anatomical Collection Method Collection Time Re ceived Time Location / / Volume Laterality 01/27/2022 3:15 PM CDT Provider Not In System RADIATION ONCOLOGY ORDERABLE S Performing Organization Address City/State/ZIP Code Phon e Number BANEGAS ARIA BANEGAS ARIA na Aria Daily Treatment Information (01/27/2022 3:15 PM CDT)Only the most recent of 5 resultswithin the time period is included. Vitrina Method Time Signature Course ID 2xMultiSit BANEGAS ARIA e Course Start 01/15/2022 BANEGAS ARIA Date 12:13 CDT First Treatment 01/21/2022 BANEGAS ARIA Date 12:57 CDT Last Treatment 01/27/2022 BANEGAS ARIA Date 15:15 CDT Treatment 6 BANEGAS ARIA Elapsed Days Reference Point [id number] BANEGAS ARIA Lscap Dosage Given to 1999 BANEGAS ARIA Date cGy Session Dosage 400 BANEGAS ARIA Given Reference Point [id number] BANEGAS ARIA Rfemur Dosage Given to 1999 BANEGAS ARIA Date cGy Session Dosage 400 BANEGAS ARIA Given Plan ID [id number] BANEGAS ARIA Fractions 5 BANEGAS ARIA Treated to Date Planned Total 5 BANEGAS ARIA Fractions Prescribed Dose 400 BANEGAS ARIA Per Fraction Prescription 1999 BANEGAS ARIA Dose in cGy Plan Primary [id number] BANEGAS ARIA Reference Point Rfemur Plan ID [id number] BANEGAS ARIA Fractions 5 BANEGAS ARIA Treated to Date Planned Total 5 BANEGAS ARIA Fractions Prescribed Dose 400 BANEGAS ARIA Per Fraction Prescription 1999 BANEGAS ARIA Dose in cGy Plan Primary [id number] BANEGAS ARIA Reference Point Lscap Specimen (Source) Anatomical Collection Method Collection Time Re ceived Time Location / / Volume Laterality 01/27/2022 3:15 PM CDT Provider Not In System RADIATION ONCOLOGY ORDERABLE S Performing Organization Address City/State/ZIP Code Phon e Number MAKENZIE KEN na Initial Rad Onc Treatment Planning CT [...] City/State/ZIP Code Phon e Number MAKENZIE KEN na Hip - Pelvis/ 2 Views Rt-Outside Skeletal Xray (12/29/2021 12:10 PM CDT) Specimen (Source) Anatomical Location Collection Method / Collectio n Time Received Time / Laterality Volume Narrative IIMS - 12/31/2021 11:57 AM CDT This order [...] DIAGNOSTIC IMAGING PROCE DURES Performing Organization Address City/State/ZIP Code Phon e Number II II NA PET SKULL to MID THIGH-Outside [place] Pet (12/24/2021 4:15 PM CDT) Specimen (Source) Anatomical Location Collection Method / Collectio n Time Received Time / Laterality Volume Narrative IIMS - 12/30/2021 3:27 PM CDT This order [...] System IMG NM PROCEDURES Performing Organization Address City/State/ZIP Code Phon e Number TEE II NA from Last 3 Months Insurance Payer Benefit Plan Subscriber ID Effective Phone Address Typ e / Group Dates MITCHELL MEDRANO [id number] 2021-Prese [phone] [address] O Indemnity BHAVANA BATEMAN nt [address] [place] [phone] MEDICARE MEDICARE A [id number] 2021-Prese [address] [place] [address]
--- OUTSIDE RECORDS SUMMARY | 2022-02-25 11:25 | XMS_ITS | Encounter Summary ---
:1960 Author Organization [facility] Address [address] [place] [address] Care Team Providers Name Role Phone Unavailable Primary Care Provider Unavailable Reason for Referral Outpatient (Routine) - Authorized Specialty Diagnoses / Procedures Referred By Contact Refer red To Contact Radiation Oncology Aidee Sanchez [facility] Jey Spencer [address] [place] [address] Referral ID Status Reason Start Date Expiration Date Visits V isits Requested Authorized [id number] Authorized 01/15/2022 01/14/2025 10 10 Radiation Therapy (Routine) - Authorized Specialty Diagnoses / Procedures Referred By Contact Refer red To Contact Diagnoses 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 [facility] [place] [facility] Procedures Initial Rad Onc Treatment Planning CT Simulation [address] [place], [place] [address] Referral ID Status Reason Start Date Expiration Date Visits Requ ested Visits Authorized [id number] Closed 01/15/2022 01/15/2023 1 1 Outpatient (Routine) - Closed Specialty Diagnoses / Procedures Referred By Contact Refer red To Contact Radiation Oncology Aidee Sanchez [facility] M.D. [address] [place] [address] Referral ID Status Reason Start Date Expiration Date Visits Requ ested Visits Authorized [id number] Closed 11/19/2021 11/19/2022 1 1 Scheduling Instructions Coordinate for same day he sees Dr. Jeff bloom at [facility], thanks! Reason for Visit Outpatient (Routine) - Closed Specialty Diagnoses / Procedures Referred By Contact Refer red To Contact Radiation Oncology Aidee Sanchez [facility] [place] Khanna M.D. [address] [place] [address] Referral ID Status Reason Start Date Expiration Date Visits Requ ested Visits Authorized [id number] Closed 11/19/2021 11/19/2022 1 1 Encounter Details Date Type Department Care Team Description 01/15/2022 - Hospital Encounter Department of Aidee Sanchez Neoplasm Of Lung Middle Lobe Or Bronchus (HCC) (Primary Dx); 01/16/2022 Radiation Oncology Tj Covarrubias Secondary Malignant Neoplasm Bone (HCC) in [place] [address] [place], [place] [address] [facility] [address] [place], [place] [phone] (Work) [phone] Social History Tobacco Use Types Packs/Day Years [...] or relatives? How often do you attend religious or Never 2021 temple services? Do you belong to any clubs or No 08/23/2021 organizations such as religious groups, unions, fraternal or athletic groups, or [...] puffs as 0 11/20/2021 mcg/actuation inhaler needed. [id number]-ul Take 1 tablet by 0 ffeine (EXCEDRIN [...] Cycle 1 pemetrexed and carboplatin administered at [facility] in [place]. 10/05/21: Cycle 2 pemetrexed, carboplatin, and pembrolizumab administered at [facility]. Pembrolizumab / PEMEtrexed / CARBOplatin [...] treatment due to hospitalization #4 Admission to [facility] with postobstructive pneumonia from November 17, [...] the patient will have follow-up scheduled with [facility] Medical Oncology providers at the [facility] for discussion on next systemic [...] Mejias P.A.-C., M.SAllen 01/15/2022 12:27 PM CDT [facility] [address] [place], [place] [id number] Associated attestation - Aidee Sanchez M.D. 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 01/15/2022 4:55 PM CDT Radiation Oncology [facility] [address] [place] [address] documented in this encounter Plan of Treatment [...] Time Received Time / Laterality Volume Narrative [facility] - 01/15/2022 12:00 PM CDT Hayley hCang, RTT ? 01/15/2022 12:44 PM Initial Rad Onc Treatment Planning CT Si mulation Performed by: Aidee Sanchez M.D. Authorized by: Aidee Sanchez M.D. Aidee I. Daniel M.D. RADIATION ONCOLOGY ORDERABLE S Performing Organization Address City/State/ZIP Code Phon e Number [place] documented in this encounter Visit Diagnoses Diagnosis Malignant Neoplasm Of Lung Middle Lobe O r Bronchus (HCC) - Primary Secondary Malignant Neoplasm Bone (HCC) Malignant Neoplasm Of Lung Middle Lobe O r Bronchus (HCC) Secondary Malignant Neoplasm Bone (HCC) documented in this encounter
--- OUTSIDE RECORDS SUMMARY | 2022-02-25 11:25 | XMS_ITS | Encounter Summary ---
:1960 Author Organization [place] Address [address] [place] [id number] Care Team Providers Name Role Phone Unavailable [...]
--- OUTSIDE RECORDS SUMMARY | 2022-02-25 11:25 | XMS_ITS | Encounter Summary ---
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 [facility] Region Procedures Initial Rad Onc Treatment Planning CT Simulation [address] [place], [place] [address] Referral ID Status Reason Start Date Expiration Date Visits Requ ested Visits Authorized [id number] Closed 01/15/2022 01/15/2023 1 1 Encounter Details Date Type Department Care Team Description 01/15/2022 Hospital Encounter Department of Aidee Sanchez Neoplasm Of Lung Middle Lobe Or Bronchus (HCC); Radiation Oncology I., M.D. Secondary Malignant Neoplasm Bone (HCC) in [place], [facility] [address] [place], [place] [address] [facility] [address] [place], [place] [phone] (Work) [phone] Social History Tobacco Use Types Packs/Day Years [...] or relatives? How often do you attend orthodox or Never 2021 congregational services? Do you belong to any clubs or No 08/23/2021 organizations such as orthodox groups, unions, fraternal or athletic groups, or [...] puffs as 0 11/20/2021 mcg/actuation inhaler needed. tevugel-olloisoysyynk-nx Take 1 tablet by 0 ffeine (EXCEDRIN [...] imaging was appropriate and completed without incident. 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
--- OUTSIDE RECORDS SUMMARY | 2022-02-25 11:25 | XMS_ITS | Encounter Summary ---
:1960 Author Organization [facility] Address [address] [place] [address] Care Team Providers Name Role Phone Unavailable Primary Care Provider Unavailable Encounter Details Date Type Department Care Team Description 11/24/2021 Documentation Department of Radiation [facility] [place] [address] [facility] [address] [place] [phone] (Wo rk) Social History Tobacco Use Types [...] or relatives? How often do you attend taoism or Never 2021 orthodox services? Do you belong to any clubs or No 08/23/2021 organizations such as taoism groups, unions, fraternal or athletic groups, or [...] or the highest technical, or vocational [facility] degree you have received? Sex Assigned [...] (cGy) First Treatment Last Treatment Elapsed Days [id number] 199911/11/2021 11/11/2021 0 [id number] 199911/12/2021 11/24/2021 12 Course Summary 11/11/2021 11/24/2021 [...] R.N., 12/08/2021 10:39 AM CDT [facility] [address] [place] [address] documented in this encounter Plan of Treatment Not on filedocumented as of this encounter Visit Diagnoses Diagnosis Malignant Neoplasm Of Lung Middle Lobe O r Bronchus (HCC) - Primary documented in this encounter
--- OUTSIDE RECORDS SUMMARY | 2022-02-25 11:25 | XMS_ITS | Encounter Summary ---
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) [C34.90, C79.51] Lesion of femur [M89.9] [facility] Periop Services Procedures ZZC OPEN FIX INTER/SUBTROCH FX,PLATE ZZC OPEN FIX INTER/SUBTROCH FX,IMPLNT ZZC OPEN TREATMENT GREATER TROCHANTERIC FRACTURE PROPHYLACTIC INTRAMEDULLARY NAILING OF RIGHT HIP [address] [place], [place] [phone] Phone: Referral ID Status Reason Start Date Expiration Date Visits Requ ested Visits Authorized [id number] 1 1 Encounter Details Date Type Department Care Team Description 01/07/2022 Surgery [facility] Wayne Humphries M D PROPHYLACTIC [facility] Periop [facility] INTRAMEDULLARY NAILING OF Services [address] [place] [address] [place], [place] [phone] (Wo rk) [address] [phone] Surgery Details Date/Time Status Location OR Service Patient Case Class Case Tr auma Class Type Case? 01/07/22 1:[address] [facility] OR Orthopedics Surgery Elective PM Main OR 02 Admit Panel 1 Procedure LRB Anes Op Region Wound Class Commen ts PROPHYLACTIC INTRAMEDULLARY NAILING OF Right Spinal Hip I-Clean RIGHT HIP Surgeon Surgeon Role Service Panel Wayne Humphries MD Primary Orthopedics 1 Jason Guzman PA-C Assisting 1 Case Notes SYNTHES RECON NAIL LOANERS.Jose R Humphreys [place] [phone] Ernestina ChildressAllen [phone] Special Needs C-Arm - Removed C-Arm (conflict) to get scheduled - ok to do per Jeannette [facility] in [facility] Social History [...] with his oncologist and radiation oncologist through [facility] after discharge. COMPLICATIONS/SIGNIFICANT FINDINGS None DISCHARGE INFORMATION [...] to metastasis (H) Nikky Encinas PA-C/Dr[facility] [phone] Date: 01/08/2022 Time: 9:02 AM documented in [...] daily as needed (90 Base) MCG/ACT inhaler zxhnqdi-lqgamuqprrufw-sa Take 1 tablet by 0 ffeine (EXCEDRIN [...] lower body dressing Lower Body Dressing Assessment/Training Paul[place] Level (Lower Body Dressing) minimum assist (75% [...] CO2 Report completed by: Nikky Encinas PA-C [facility] Date: 01/08/2022 Time: 8:59 AM Michael Mazariegos MD - 01/08/2022 8:57 AM CDT [facility] MEDICINE PROGRESS NOTE Identification/Summary: 61-year-old male with a history of metastatic adenocarcinoma of the lung presents for prophylactic intramedullary nailing of the hip. Doing all right postoperative day #1. Metastatic adenocarcinoma the right lung Status post prophylactic intramedullary nailing Patient will follow up with his oncologist through [facility] Acute blood loss anemia Mild and asymptomatic [...] care was discussed with the Bedside Nurse, Lamp Assembler/Centrifugal Casting Machine Tender and Patient. Michael Mazariegos MD [facility] Phone: #[phone] Interval History/Subjective: Patient feeling good. Eating. Urinating. [...] be read by a radiologist or a [place] non-radiologist provider. Labs: Most Recent 3 CBC's:Recent [...] Transfers Transfers sit-stand transfer Sit-Stand Transfer Sit-Stand [place] (Transfers) supervision;verbal cues Gait/Stairs (Locomotion) [place] Level (Gait) supervision;verbal cues;nonverbal cues (demo/gesture) Assistive Device (Gait) walker, front-wheeled Distance in Feet (Required for LE Total Joints) 100 Pattern (Gait) 3-point Deviations/Abnormal Patterns (Gait) gait speed decreased Maintains Weight-bearing Status (Gait) able to maintain;nonverbal cues (demo/gesture) to maintain;verbal cues to maintain Negotiation (Stairs) stairs independence;stairs assistive device;handrail location;number of steps;ascending technique;descending technique Paulding Level (Stairs) supervision;verbal cues;nonverbal cues (demo/gesture) Handrail Location (Stairs) both sides Number of Steps (Stairs) 4 Ascending Technique (Stairs) mbfw-ut-fpot Descending Technique (Stairs) worp-vm-cymd Clinical Impression Criteria for Skilled Therapeutic Intervention [...] 77.1 kg (170 lb). Source Note - Adelia Walter - 01/05/2022 3:02 PM CDT documented in this encounter Consult Notes Michael Mazariegos MD - 01/07/2022 5:42 PM CDTAssociated Order(s): HOSPITALIST IP CONSULT [facility] MEDICINE CONSULT NOTE Physician requesting consult: Wayne Humphries MD Reason for consult: Postoperative medical management of medical co-morbidities as below Assessment and Plan Hector Norris is a 61 year old old male with a history of metastatic adenocarcinoma of the right lung presents for prophylactic intramedullary nailing of the right hip due to metastases. [facility] service was asked to [...] will follow up with his oncologist through [facility] Rheumatoid arthritis Clinically stable Paroxysmal atrial fibrillation [...] Week at does not have with ??? dyxefzz-plyieoqwphbio-ojduvpma (EXCEDRIN MIGRAINE) 250-250-65 MG tablet Take 1 [...] mouth 3 times daily as needed 01/06/2022 [id number] ??? ipratropium - albuterol 0.5 mg/2.5 mg/3 [...] be read by a radiologist or a [place] non-radiologist provider. Labs Reviewed Personally By Myself [...] Abnormality Status --------- ------ Adult Type and Screen[[id number]] Final result Please view results for these tests on the individual orders. Adult Type and Screen Result Value Ref Range ABO/RH(D) O POS Antibody Screen Negative Negative SPECIMEN EXPIRATION DATE [id number] XR Surgery MARK Fluoro G/T 5 Min Narrative This exam was marked as non-reportable because it will not be read by a radiologist or a [place] non-radiologist provider. Preoperative Labs Reviewed Personally By [...] any questions or concerns. Michael Mazariegos MD [facility] Phone: #[phone] documented in this encounter Miscellaneous Notes Plan [...] goal(s). See goals on Care Plan in [facility] electronic health record for goal details. Goals met Therapy recommendation(s): No further therapy is recommended. Plan of Care - Tasha Mensah, PT - 01/08/2022 8:57 AM CDT Physical Therapy Discharge Summary Reason for therapy discharge: Goals met. Progress towards therapy goal(s). See goals on Care Plan in [facility] electronic health record for goal details. Goals [...] analgesics: Yes Does patient have an identified head coach: Yes Has goal D/C date and [...] analgesics: Yes Does patient have an identified head coach: Yes Has goal D/C date and time been discussed with patient: Yes Continue to monitor VS, labs, pain level, incision site and activity tolerance. Goal Outcome Evaluation: Provider Notification - Wendy Gregg RN - 01/07/2022 1:24 PM CDT Notified Jason JIM, regarding todays labs, WBC elevated from 2 days ago. Will proceed with OR today. Pharmacy-Admission Medication History - Autumn Holm, [facility] - 01/07/2022 12:29 PM CDT Pharmacy Note - Admission Medication History Pertinent Provider Information: n/a Prior To Admission (MOTORBOAT MECHANIC HELPER) med list completed and updated in EMR. MOTORBOAT MECHANIC HELPER Med List Medication Sig Last Dose ??? albuterol (PROAIR HFA/PROVENTIL HFA/VENTOLIN HFA) 108 (90 Base) MCG/ACT inhaler Inhale 2 puffs into the lungs 4 times daily as needed Past Week at does not have with ??? alibioe-abkulzyjpaidz-jxfcuiih (EXCEDRIN MIGRAINE) 250-250-65 MG tablet Take 1 [...] mouth 3 times daily as needed 01/06/2022 [id number] ??? ipratropium - albuterol 0.5 mg/2.5 mg/3 [...] Patient was asked about OTC/herbal products specifically. MOTORBOAT MECHANIC HELPER med list reflects this. Based on the pharmacist's assessment, the MOTORBOAT MECHANIC HELPER med list information appears reliable Allergies were reviewed, assessed, and updated with the patient. Patient did not bring any medications to the hospital and can't retrieve from home. No multi-dose medications are available for use during hospital stay. Thank you for the opportunity to participate in the care of this patient. Autumn Holm, AnnabelleD, [facility] 01/07/2022 12:29 PM Op Note [...] fascia iliac a block in preop per [facility]. He was appropriately premedicated. Consent obtained risks reviewed. Labswere checked. He was premedicated brought to the operative room undergoing anesthetic induction. Transferred to the [place] table. [place] boot was applied to the right lower [...] in the sagittal plane, using the perfect alakan[place] technique was used to drill the static transverse screw hole. This was measured and filled with the appropriately sized interlocking screw. Then, in likewise fashion using the C-arm in the sagittal plane, using the perfect alakanuk technique, the dynamic screw slot was predrilled [...] procedure well and was sent to the [place] in stable condition. Estimated Blood Loss: Less than 50 cc Specimens: No specimen Drains: No drain Complications: None Wayne Humphries MD Date: 01/07/2022 Time: 3:37 PM Implant Name Type Inv. Item Serial No. Residential Program Worker Lot No. LRB No. Used Action SYNTHES TITANIUM NAIL RT 12MM X 380MM [employer] [id number] Right 1 Implanted SYNTHES LOCKING SCREW IM NAIL 5 X 38MM SYNTHES [id number] Right 1 Implanted SYNTHES IM LOCKING SCREW 5 X 72MM SYNTHES [id number] Right 1 Implanted SYNTHES LOCKING SCREW IM NAIL 5 X 40MM SYNTHES [id number] Right 1 Implanted SYNTHES LOCKING SCREW IM NAIL 5 X 46MM SYNTHES [id number] Right 1 Implanted Provider Notification - Blaine Castillo APRN SUPERVISOR HOUSECLEANER - 01/06/2022 12:36 PM CDT I am evaluating this patient for upcoming Prophylactic Intramedullary Nailing of Right Hip with Dr. Humphries at [facility] on 01/07/22: - Notified by preop RNEllen, [...] tomorrow. OK to proceed. Blaine Castillo APRN, SUPERVISOR HOUSECLEANER Advanced Practice Nurse Navigator- Orthopedics [facility] Office Direct documented in this [...] Case Notes SYNTHES RECON NAIL LOANERS.N blayne HAllen [phone] [place] [phone] Ernestina Goodson [phone] Special Needs C-Arm - Removed C-Arm (confl [...] Signature Hemoglobin 10.7 (L) 13.3 - 01/08/2022 [facility] 17.7 g/dL 5:42 AM CDT Specimen Anatomical Collection Method / Collection Time Recei ry Time (Source) Location / Volume Laterality Blood STRUCTURE OF RIGHT Venipuncture / 01/08/2022 5:36 12/24 5:39 UPPER LIMB / Unknown AM CDT AM CDT Unknown Jason Guzman PA-C LAB - BLOOD ORDERABLES Performing Organization Address City/[facility]/ZIP Code Phon e Number [facility] [place] [address] [address] [facility] XR Surgery MARK Fluoro G/T 5 Min (01/07/2022 3:53 PM CDT) Specimen (Source) Anatomical Location Collection Method / Collectio n Time Received Time / Laterality Volume Narrative [facility] - 01/07/2022 3:56 PM CDT This exam was marked as non-reportable because it will not be read by a radiologist or a [facility] non-radiologis t provider. Wayne Humphries MD IMG DIAGNOSTIC IMAGING ORDER DUNG Performing Organization Address City/[facility]/ZIP Code Phon e Number [facility] Adult Type and Screen (01/07/2022 12:13 PM CDT) Patholo gist Method Time Signature ABO/RH(D) O POS 01/07/2022 [facility] BLO[facility] 12:15 PM BANK CDT Antibody Negative Negative 01/07/2022 [facility] BLO[facility] Screen 12:15 PM BANK CDT SPECIMEN [id number] 01/07/2022 [facility] BLOOD EXPIRATION 12:15 PM BANK DATE CDT Specimen Anatomical Collection Method / Collection Time Recei ry Time (Source) Location / Volume Laterality Blood BLOOD SPECIMEN / Venipuncture / 01/07/2022 12:13 01/07 Unknown Unknown PM CDT 12:22 PM CDT Jason Guzman PA-C LAB - BLOOD BANK TEST ORDER Performing Organization Address City/[facility]/ZIP Code Phon e Number [facility] BANK [address] [place] [address] (ABNORMAL) Erythrocyte sedimentation rate auto (01/07/2022 12:13 PM CDT) Patholo gist Method Time Signature Erythrocyte 25 (H) 0 - 15 01/07/2022 [facility] Sedimentation Rate mm/hr 1:07 PM CDT Specimen Anatomical Collection Method / Collection Time Recei ry Time (Source) Location / Volume Laterality Blood BLOOD SPECIMEN / Venipuncture / 01/07/2022 12:13 01/07 Unknown Unknown PM CDT 12:22 PM CDT Jason Guzman PA-C LAB - BLOOD ORDERABLES Performing Organization Address City/[facility]/ZIP Code Phon e Number [facility] [place] [address] (ABNORMAL) CRP inflammation (01/07/2022 12:13 PM CDT) P athologist Signature CRP 1.4 (H) 0.0 - <0.8 01/07/2022 [facility] mg/dL 12:38 PM CDT Specimen Anatomical Collection Method / Collection Time Recei ry Time (Source) Location / Volume Laterality Blood BLOOD SPECIMEN / Venipuncture / 01/07/2022 12:13 01/07 Unknown Unknown PM CDT 12:22 PM CDT Jason Guzman PA-C LAB - BLOOD ORDERABLES Performing Organization Address City/[facility]/ZIP Code Phon e Number [facility] [place] [address] INR (01/07/2022 12:13 PM CDT) athologist Signature INR 0.94 0.85 - 1.15 01/07/2022 [facility] 12:36 PM CDT Specimen Anatomical Collection Method / Collection Time Recei ry Time (Source) Location / Volume Laterality Blood BLOOD SPECIMEN / Venipuncture / 01/07/2022 12:13 01/07 Unknown Unknown PM CDT 12:22 PM CDT Jason Guzman PA-C LAB - BLOOD ORDERABLES Performing Organization Address City/[facility] Phon e Number [facility] [place] [address] (ABNORMAL) Creatinine (01/07/2022 12:13 PM CDT) athologist Signature Creatinine 0.69 (L) 0.70 - 01/07/2022 [facility] 1.30 mg/dL 12:38 PM CDT GFR Estimate >90 >60 01/07/2022 [facility] mL/min/1.7 12:38 PM CDT 3m2 Comment: Effective 2021 eGF Rcr in adults is calculated using the 2020 CKD-EPI creatinine equation which includ es age and gender (Megan et al., [place], DOI: 10.1056/QEPEoh6970349) Specimen Anatomical Collection Method / Collection Time Recei ry Time (Source) Location / Volume Laterality Blood BLOOD SPECIMEN / Venipuncture / 01/07/2022 12:13 01/07 Unknown Unknown PM CDT 12:22 PM CDT Jason Guzman PA-C LAB - BLOOD ORDERABLES Performing Organization Address City/[facility] Phon e Number [facility] [place] [address] Potassium (01/07/2022 12:13 PM CDT) athologist Signature Potassium 4.3 3.5 - 5.0 01/07/2022 [facility] mmol/L 12:38 PM CDT Specimen Anatomical Collection Method / Collection Time Recei ry Time (Source) Location / Volume Laterality Blood BLOOD SPECIMEN / Venipuncture / 01/07/2022 12:13 01/07 Unknown Unknown PM CDT 12:22 PM CDT Jason Guzman PA-C LAB - BLOOD ORDERABLES Performing Organization Address City/State/ZIP Code Phon e Number [facility] [place] [address] (ABNORMAL) CBC with platelets (01/07/2022 12:13 PM CDT) [facility] gist Method Time Signature WBC Count 13.2 (H) 4.0 - 11.0 01/07/2022 [facility] 10e3/uL 12:26 PM CDT RBC Count 4.02 (L) 4.40 - 01/07/2022 [facility] 5.90 12:26 PM CDT 10e6/uL Hemoglobin 12.0 (L) 13.3 - 01/07/2022 [facility] 17.7 g/dL 12:26 PM CDT Hematocrit 36.0 (L) 40.0 - 01/07/2022 [facility] 53.0 % 12:26 PM CDT MCV 90 78 - 100 01/07/2022 [facility] fL 12:26 PM CDT MCH 29.9 26.5 - 01/07/2022 [facility] 33.0 pg 12:26 PM CDT MCHC 33.3 31.5 - 01/07/2022 [facility] 36.5 g/dL 12:26 PM CDT RDW 15.2 (H) 10.0 - 01/07/2022 [facility] 15.0 % 12:26 PM CDT Platelet Count 417 150 - 450 01/07/2022 [facility] 10e3/uL 12:26 PM CDT Specimen Anatomical Collection Method / Collection Time Recei ry Time (Source) Location / Volume Laterality Blood BLOOD SPECIMEN / Venipuncture / 01/07/2022 12:13 01/07 Unknown Unknown PM CDT 12:22 PM CDT Jason Guzman PA-C LAB - BLOOD ORDERABLES Performing Organization Address City/State/ZIP Code Phon e Number [facility] [place] [address] POC US Guidance Needle [...] analgesic side effects. Hold while on IV RADIOLOGIC TECHNOLOGIST or with regular IV opioid dosing. Given [...] esic side effects. Hold while on IV RADIOLOGIC TECHNOLOGIST or with regular IV opioid dosing. pantoprazole [...] 10 mg, Oral, DAILY, First dose on Tue01/07/22 at 2200, For 35 days, Indications: Ortho post-op DVT Prophylaxis, Not recommended if CrCl less than 30 mL/min Given 01/07/2022 10:13 PM CDT 10 mg senna-docusate (SENOKOT-S/PERICOLACE) Given 01/08/2022 9:00 AM C DT 1 tablet 8.6-50 MG per tablet 1 tablet 1 tablet, Oral, 2 TIMES DAILY, First dose on Tue01/07/22 at 2100, To prevent constipation. Hold for loose stools Hold for loose stools. Given 01/07/2022 8:28 PM CDT 1 tablet sodium chloride (PF) 0.9% PF flush 3 mL Given 01/08/2022 9:02 AM CDT 3 mLs 3 mL, Intracatheter, EVERY 8 HOURS, First dose on Tue01/07/22 at 1730, to lock peripheral IV dormant line Given 01/08/2022 12:44 AM CDT 3 mLs sodium chloride (PF) 0.9% PF flush 3 mL 3 mL, Intracatheter, EVERY 1 MIN PRN, li ne flush, other, to ensure patency or to lock dormant line, Starting on Tue01/07/22 at 1701 sodium chloride 0.9% Given 01/07/2022 2:44 PM 400 mLs Operative Site/Surgical (bottle) irrigation CDT Site PRN, Starting on Tue01/07/22 at 1444, Intra-procedure documented in this encounter [...] 1400 (Given - Provider: Vandana Padilla APRN CONSTRUCTION PROJECT ASSISTANT) Routine, 2 g, Intravenous, PRE-OP/PRE-WA OCEDURE, Starting on Komal 01/07/22 at 1203, [...] out. rivaroxaban ANTICOAGULANT (XARELTO) tablet 10 mg 2212 (Given - Provider: Zara Barrios RN) 09 (Given - Provider: Fatou Trujillo RN) 10 mg, Oral, DAILY, First dose on Komal at 2200, For 35 days, Indications: Ortho post-op DVT Prophylaxis, Not recommended if CrCl less than 30 mL/min senna-docusate (SENOKOT-S/PERICOLACE) 8.6-50 MG per tablet 1 tablet 2027 (Given - Provider: Karen Feliz RN) 0900 (Given - Provider: Fatou Trujillo , ZAIN) 1 tablet, Oral, 2 TIMES DAILY, First dos e on Komal 01/07/22 at 2100, To prevent constipation. Hold for loose stools Hold for loose stools. sodium chloride (PF) 0.9% PF flush 3 mL 175 (Not Given - Provider: Lamar Drake RN - Reason: IV Infusing) 43 (Given - Provider: Kenna Carcamo N)09 (Given - Provider: Fatou Trujillo RN) 3 [...] Intravenous, CONTINUOUS, P re-procedure, Starting on Komal 15/22 at 1230, Until Tue01/07/22 at 1558 1557 (Anesthesia Volum e Adjustment - Provider: Vandana Padilla APRN CONSTRUCTION PROJECT ASSISTANT) lactated ringers infusion 1718 (Restarte d - Provider: Lamar Drake, RN)175 (New Bag - Provider: Lamar Drake, RN)2050 (Stopped - Provider: Karen Feliz, RN) at 125 mL/hr, Intravenous, CONTINUOUS, C hange to saline lock when PO well tolerated., Starting on Tue01/07/22 at 1730, Until Tue01/08/22 at 1429 PRN [...] mcg (CANCELED) 1303 (Given - Provider: Wendy Gregg, ZAIN)1304 (Given - Provider: Wendy Gregg, ZAIN) 50 mcg, Intravenous, EVERY 1 MIN PRN, ot her, procedural sedation/analgesia, Starting on Komal 01/07/22 at 1203, To be given under anesthesiologist supervision. Anesthesiologist will determine dosing at time of procedure. Max dose 100 mcg., Pre-procedure HYDROmorphone (DILAUDID) injection 0.2 mg(Linked Group 1) 171 (See Alternative - Provider: Lamar Drake, ZAIN)2027 (See Alternative - Provider: Karen Feliz, ZAIN) [...] HYDROmorphone (DILAUDID) injection 0.4 mg(Linked Group 1) 171 (Given - Provider: Lamar Drake, ZAIN)2027 (Given - Provider: Karen Feliz, ZAIN) 0.4 [...] 25 mg 1900 (Given - Provider: Lamar Drake, ZAIN) 25 [...] RN)1304 (Given - Provider: Wendy Gregg RN) 1 [...] sic side effects. Hold while on IV RADIOLOGIC TECHNOLOGIST or with regular IV opioid dosing. oxyCODONE (ROXICODONE) tablet 5 mg(Linked Group 4) 1858 (See Alternative - Provider: Lamar Drake RN)2313 [...] analgesic side effects. Hold while on IV RADIOLOGIC TECHNOLOGIST or with regular IV opioid dosing. sodium [...] after each naloxone dose. Consider transfer to [facility] if patient respiratory parameters hav e [...] side effects. Ho ld while on IV RADIOLOGIC TECHNOLOGIST or with regular IV opioid dosing.
Or oxyCODONE (ROXICODONE) tablet 10 mgJump to med 10 mg, Oral, EVERY 4 HOURS PRN, severe p ain, (pain rating 7-10), Starting on Komal 01/07/22 at 1701
Hold oral PRN dose for analgesic side effects. Notify provider to assess for uncontrolled pain o r analgesic side effects. Hold whi le on IV RADIOLOGIC TECHNOLOGIST or with regular IV opioid dosing.
documented in this encounter Care Teams General Road Production Manager Relationship Specialty Start Date End Date Tin Hernandez PCP - General Family Medicine 01/06/[address] [place] [address] documented as of this encounter
--- OUTSIDE RECORDS SUMMARY | 2022-02-25 11:25 | XMS_ITS | Encounter Summary ---
:1960 Author Organization [facility] Address [address] [place] [address] Care Team Providers Name Role Phone Unavailable Primary Care Provider Unavailable Encounter Details Date Type Department Care Team Description 01/22/2022 Hospital Encounter Department of Radiation Delilah Sanchez I., Oncology in [place] [address] [facility] [[email or web address]] [address] [place] [address] [phone] Social History Tobacco Use Types Packs/Day Years [...] or relatives? How often do you attend hinduism or Never 2021 episcopal services? Do you belong to any clubs or No 08/23/2021 organizations such as hinduism groups, unions, fraternal or athletic groups, or [...] the highest technical, or vocational p [facility] degree you have received? Sex Assigned at Date Recorded Male 08/23/2021 10:27 AM CDT documented as of this encounter Medications at Time of Discharge Medication Sig Dispensed Refills Start Date End Date albuterol 90 Inhale 2 puffs. 0 11/20/2021 mcg/actuation inhaler albuterol 90 Inhale 2 puffs as 0 11/20/2021 mcg/actuation inhaler needed. fvdsody-fqyvgxernatgg-jw Take 1 tablet by 0 ffeine (EXCEDRIN [...]
--- OUTSIDE RECORDS SUMMARY | 2022-02-25 11:25 | XMS_ITS | Encounter Summary ---
:1960 Author Organization [facility] Address [address] [place] [address] Care Team Providers Name Role Phone Unavailable Primary Care Provider Unavailable Encounter Details Date Type Department Care Team Description 11/23/2021 Hospital Encounter Department of Radiation Delilah Sanchez I., Oncology in [place] [address] [facility] [address] [place] [phone] Social History Tobacco Use Types Packs/Day Years [...] do you attend christianity or Never 2021 catholic services? Do you [...] place to sleep or slept in a [facility] (including now)? Education Answer Date Recorded What is the highest level of school Associate degree: julieta arreaga, 08/23/2021 you have completed or the highest technical, or vocational p [facility] degree you have received? Sex Assigned at Date Recorded Male 08/23/2021 10:27 AM CDT documented as of this encounter Medications at Time of Discharge Medication Sig Dispensed Refills Start Date End Date albuterol 90 Inhale 2 puffs. 0 11/20/2021 mcg/actuation inhaler albuterol 90 Inhale 2 puffs as 0 11/20/2021 mcg/actuation inhaler needed. muezhim-nupovhxwuzgkc-cd Take 1 tablet by 0 ffeine (EXCEDRIN [...]
--- OUTSIDE RECORDS SUMMARY | 2022-02-25 11:25 | XMS_ITS | Encounter Summary ---
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 [facility] Procedures Management Visit [address] [place] [phone] Referral ID Status Reason Start Date Expiration Date Visits V isits Requested Authorized [id number] Authorized 11/03/2021 11/03/2022 10 10 Encounter Details Date Type Department Care Team Description 11/23/2021 Hospital Encounter Department of Los Wen Neoplasm Radiation Oncology Tj Childress Of Right Main in [place], [address] [facility] Bronchus (HCC) [place], [place] [address] [facility] [address] [place], [place] [phone] [address] (Work) [phone] Social History Tobacco Use Types Packs/Day Years [...] do you attend taoist or Never 2021 protestant services? Do you [...] place to sleep or slept in a residential (including now)? Education Answer Date Recorded What [...] puffs as 0 11/20/2021 mcg/actuation inhaler needed. cfyufsk-yoqfywparfwwh-uu Take 1 tablet by 0 ffeine (EXCEDRIN [...] (cGy) First Treatment Last Treatment Elapsed Days [id number] 199911/11/2021 11/11/2021 0 H5SbvmR 4 / 5 400 1600 199911/12/2021 11/23/2021 [...] through November 16, 2021 #4 Admission to [facility] with postobstructive pneumonia from November 17, [...] will get him connected again over at [facility] and [facility] hopefully later this week. He understands that if he has recrudescence of his chest pain or tachycardia, he should present to the emergency room. The patient and his wifeverbalized satisfaction with this plan. Signed by: Los Wen M.D. 11/23/21 11:57 AM CDT [facility] [address] [place] [address] documented in this encounter Miscellaneous Notes Addendum [...]
--- OUTSIDE RECORDS SUMMARY | 2022-02-25 11:25 | XMS_ITS | Encounter Summary ---
:1960 Author Organization [facility] Address [address] [place] [address] Care Team Providers Name Role Phone Unavailable Primary Care Provider Unavailable Encounter Details Date Type Department Care Team Description 01/27/2022 Hospital Encounter Department of Radiation Delilah Sanchez I., Oncology in [place] [address] [facility] [address] [place] [address] [phone] Social History Tobacco Use Types Packs/Day Years [...] or relatives? How often do you attend sabianist or Never 2021 mosque services? Do you belong to any clubs or No 08/23/2021 organizations such as sabianist groups, unions, fraternal or athletic groups, or [...]
--- OUTSIDE RECORDS SUMMARY | 2022-02-25 11:25 | XMS_ITS | Encounter Summary ---
:1960 Author Organization [facility] Address [address] [place] [address] Care Team Providers Name Role Phone Unavailable Primary Care Provider Unavailable Reason for Referral Outpatient (Routine) - Closed Specialty Diagnoses / Procedures Referred By Contact Refer red To Contact Radiation Oncology Aidee Sanchez [facility] M.D. [address] [place] [address] Referral ID Status Reason Start Date Expiration Date Visits Requ ested Visits Authorized [id number] Closed 11/19/2021 11/19/2022 1 1 Scheduling Instructions Coordinate for same day he sees Dr. Jeff bloom at [facility], thanks! Encounter Details Date Type Department Care Team Description 11/19/2021 Orders Only Department of Radiation Aidee Sanchez, Oncology in [place] [address] [place] [address] [phone] (Wo rk) Social History Tobacco Use Types [...] or relatives? How often do you attend mormonism or Never 2021 rastafarian services? Do you belong to any clubs or No 08/23/2021 organizations such as mormonism groups, unions, fraternal or athletic groups, or [...] Name Type Priority Associated Diagnoses Order [facility] Radiation Oncology Outpatient Referral Routine Ex pected: office visit 12/07/2021 (clinic) (Approximate), Expires: 11/19/2022 documented as of this encounter Visit Diagnoses Not on filedocumented in this encounter
--- OUTSIDE RECORDS SUMMARY | 2022-02-25 11:25 | XMS_ITS | Encounter Summary ---
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 [facility] Procedures Management Visit [address] [place] [phone] Referral ID Status Reason Start Date Expiration Date Visits V isits Requested Authorized [id number] Authorized 01/15/2022 01/15/2023 10 10 Encounter Details Date Type Department Care Team Description 01/26/2022 Hospital Encounter Department of Aidee Sanchez Neoplasm Of Lung Middle Lobe Or Bronchus (HCC); Radiation Oncology Tj Covarrubias Secondary Malignant Neoplasm Bone (HCC) in [place], [address] [place] [address] [place] 1821 [facility] [address] [place], [place] [phone] [address] (Work) [phone] Social History Tobacco Use Types Packs/Day Years [...] do you attend jew or Never 2021 yazdanism services? Do you belong to any clubs [...] or the highest technical, or vocational p [facility] degree you have received? Sex Assigned at [...] puffs as 0 11/20/2021 mcg/actuation inhaler needed. nfdnykj-bogbxfkiexnsv-ur Take 1 tablet by 0 ffeine (EXCEDRIN [...] (cGy) First Treatment Last Treatment Elapsed Days X5DlhckjhX 400 1200 199901/21/2022 01/25/2022 4 U2GnckqN 400 1200 199901/21/2022 01/25/2022 4 Course Summary [...] treatment due to hospitalization #4 Admission to [facility] with postobstructive pneumonia from November 17, [...] for 1 Of Lung Middle Lobe Occurren baldomero starting Or Bronchus (HCC ) 01/26/2022 until Secondary Malignant 01/27/20 22 Neoplasm Bone (HCC) documented as of this encounter Visit Diagnoses Diagnosis Malignant Neoplasm Of Lung Middle Lobe O r Bronchus (HCC) Secondary Malignant Neoplasm Bone (HCC) documented in this encounter
--- OUTSIDE RECORDS SUMMARY | 2022-02-25 11:25 | XMS_ITS | Encounter Summary ---
:1960 Author Organization [facility] Address [address] [place] [address] Care Team Providers Name Role Phone Unavailable Primary Care Provider Unavailable Encounter Details Date Type Department Care Team Description 11/19/2021 Clinical Communication Department of Aidee Sanchez Radiation Oncology in [place]j Covarrubias [facility] [address] [facility] [address] [place] [phone] Social History Tobacco Use Types Packs/Day Years [...] do you attend moravian or Never 2021 hinduism services? Do you [...] in [address] Jarrett at [facility]. Her questions were answered; she was comfortable with this plan. documented in this encounter Plan of Treatment Not on filedocumented as of this encounter Visit Diagnoses Not on filedocumented in this encounter
--- OUTSIDE RECORDS SUMMARY | 2022-02-25 11:26 | XMS_ITS | Encounter Summary ---
:1960 Author Organization [facility] Address [address] [place] [address] Care Team Providers Name Role Phone Unavailable Primary Care Provider Unavailable Reason for Visit Reason Comments sx headache/body aches Encounter Details Date Type Department Care Team Description 09/18/2021 Clinical Communication Department of Zoila Infante headache/body Oncology in [place], R[place]aya [facility], [facility] [address] [place], [place] [address] [facility] [address] [place] [address] Social History Tobacco Use Types Packs/Day Years [...] or relatives? How often do you attend sikhism or Never 2021 episcopalian services? Do you belong to any clubs or No 08/23/2021 organizations such as sikhism groups, unions, fraternal or athletic groups, or [...] ok for headache - next treatment in [place] Disposition/Recommendation: self-care appropriate at this time, patient encouraged to call back withquestions Information/Education: patient/caller able to teach back Caller agreeable to plan of care: yes The following references were used: nursing clinical judgement Telephone Encounter - Hollie Syk - 09/18/2021 2:21 PM CDT Is there [...] on 09/15. Thank you, Hollie Medical Admin. Knitting Machine Fixer Head RST ONC NINFA FLORES AA POD 3 documented in this encounter Plan of Treatment Not on filedocumented as of this encounter Visit Diagnoses Not on filedocumented in this encounter
--- OUTSIDE RECORDS SUMMARY | 2022-02-25 11:26 | XMS_ITS | Encounter Summary ---
:1960 Author Organization [facility] Address [address] [place] [address] Care Team Providers Name Role Phone Unavailable Primary Care Provider Unavailable Encounter Details Date Type Department Care Team Description 09/01/2021 Lab RST RO Radha Liriano, Malignant Neoplasm Of [address] [place] [address].[facility] [place] [address] 200 [facility] Multiple Site Right [place], [place] ([facility]) [address] (Wo rk) Social History Tobacco Use Types [...] do you attend sikhism or Never 2021 voodoo services? Do you [...] DNA change: c.35G>A Amino Acid change: p.G12D ([id number]) Classification: MUTATION No additional reportable alterations were identified within the analyzed regions of the tested genes listed in the method description. Released By Justo Sierra, 09/16/2021 DTMonroe Spencer 12:47 PM CDT Additional CLINICAL TRIALS 09/16/2021 DTL Information Possible clinical trials of benefit for this patient c an be 12:47 PM found at the following sites: CDT 1) ClinicalTrials.gov: www.clinicaltrials.gov/ct2/search/advanced 2) [facility]: www.[facility]/research/clinical-trials/ 3) [facility] [place]: www.cancer.gov/clinicaltrials/search REFERENCE TRANSCRIPT(S) Mutation nomenclature is based on the following GenBank accession number(s) (build GRCh37 (hg19)): KRAS [id number]. Specimen Cells 09/16/2021 DTL 12:47 PM CDT Tissue ID [id number] 09/16/2021 DTL (smears 3 and 6) 12:47 [...] Caitlin Rev Clin Oncol. 2010Dec 15;8(11):661-8 (PMID [id number]) 3. Int J Cancer 2011;131(5):N800-775 (PMID [id number]) 4. Mod Pathol. 2008 August; Suppl 2:S16-22 (PMID [id number]) 5. J Clin Oncol. 2005 Dec 24;23(25):2807-9 (PMID [id number]) Comment: ----ADDITIONAL INFORMATION---- Microscopic examination was performed [...] and additional information about this test, see www.[employer] Zase (Test ID CAPN). CLINICAL CORRELATIONS Test results [...] and its performa nce characteristics determined by [facility] in a manner consistent with CLIA [...] Organization Address City/State/ZIP Code Phon e Number [facility] - [address] [place], [place] [address] [facility] [place] 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
--- OUTSIDE RECORDS SUMMARY | 2022-02-25 11:26 | XMS_ITS | Encounter Summary ---
:1960 Author Organization [facility] Address [address] [place] [address] Care Team Providers Name Role Phone Unavailable Primary Care Provider Unavailable Encounter Details Date Type Department Care Team Description 09/14/2021 Admin Visit Department of Oncology in [place], [place] [address] [place] [address] Social History Tobacco Use Types Packs/Day [...] or relatives? How often do you attend quaker or Never 2021 yazidi services? Do you belong to any clubs or No 08/23/2021 organizations such as quaker groups, unions, fraternal or athletic groups, or [...]
--- OUTSIDE RECORDS SUMMARY | 2022-02-25 11:26 | XMS_ITS | Encounter Summary ---
:1960 Author Organization [facility] Address [address] [place] [address] Care Team Providers Name Role Phone Unavailable Primary Care Provider Unavailable Reason for Referral Outpatient (Routine) - Authorized Specialty Diagnoses / Procedures Referred By Contact Refer red To Contact Radiation Oncology Aidee Sanchez [facility] Jey Spencer [address] [place] [address] Referral ID Status Reason Start Date Expiration Date Visits V isits Requested Authorized [id number] Authorized 11/03/2021 11/03/2022 10 10 Radiation Therapy (Routine) - Authorized Specialty Diagnoses / Procedures Referred By Contact Refer red To Contact Diagnoses 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 [facility] Region Procedures Initial Rad Onc Treatment Planning CT Simulation [address] [place] [address] Referral ID Status Reason Start Date Expiration Date Visits Requ ested Visits Authorized [id number] Closed 11/03/2021 11/03/2022 1 1 Encounter Details Date Type Department Care Team Description 11/03/2021 Orders Only Department of Aidee Sanchez Malignant N eoplasm Of Radiation Oncology in Tj Covarrubias Right Main Bronchus [place], [facility] a [address] [facility] (HCC) (Primary Dx) [address] [place] [address] [phone] Social History Tobacco Use Types Packs/Day Years [...] or relatives? How often do you attend alevism or Never 2021 christianity services? Do you belong to any clubs or No 08/23/2021 organizations such as alevism groups, unions, fraternal or athletic groups, or [...] MAKENZIE KEN - 11/05/2021 11:03 AM CDT Hayley Bergman, RTT ? 11/05/2021 11:03 AM Initial Rad Onc Treatment Planning CT Si mulation Date/Time: 11/05/2021 11:03 AM Performed by: Los Wen M.D. Authorized by: Aidee Sanchez M.D. Aidee Sanchez M.D. RADIATION ONCOLOGY ORDERABLE S Performing Organization Address City/State/ZIP Code Phon e Number [place] documented in this encounter Visit Diagnoses Diagnosis Malignant Neoplasm Of Right Main Bronchu s (HCC) - Primary Malignant Neoplasm Of Right Main Bronchu s (HCC) documented in this encounter
--- OUTSIDE RECORDS SUMMARY | 2022-02-25 11:26 | XMS_ITS | Encounter Summary ---
:1960 Author Organization [facility] Address [address] [place] [address] Care Team Providers Name Role Phone Unavailable Primary Care Provider Unavailable Reason for Visit Reason Comments sx dyspnea sx worsening cough Encounter Details Date Type Department Care Team Description 10/27/2021 Clinical Communication Department of Zoila Infante sx dyspnea; sx Oncology in [place], R.N. worsening cough [place], [facility] [address] [place], [place] [address] [facility] [address] [place] [address] Social History Tobacco Use Types Packs/Day Years [...] many times do you More than three ols es a week 08/23/2021 talk on the phone with family, friends, or neighbors? How often do you get together with friends Once a week 08/23/2021 or relatives? How often do you attend confucianism or Never 2021 mormonism services? Do you belong to any clubs or No 08/23/2021 organizations such as confucianism groups, unions, fraternal or athletic groups, or [...] call today. Thank you, Hollie Medical Admin. Fuller Brush Worker RST ONC NINFA MED AA POD 3 documented in this encounter Plan of Treatment Not on filedocumented as of this encounter Visit Diagnoses Not on filedocumented in this encounter
--- OUTSIDE RECORDS SUMMARY | 2022-02-25 11:26 | XMS_ITS | Encounter Summary ---
:1960 Author Organization [facility] Address [address] [place] [address] Care Team Providers Name Role Phone Unavailable Primary Care Provider Unavailable Reason for Visit Reason Comments Guardant 360 results Encounter Details Date Type Department Care Team Description 09/22/2021 Clinical Communication Department of Donna Mcqueen Oncology in [place] [facility] [place] M.S.N [address] [facility] [address] [place] [address] [phone] Social History Tobacco Use Types Packs/Day Years [...] do you attend taoist or Never 2021 episcopal services? Do you [...]
--- OUTSIDE RECORDS SUMMARY | 2022-02-25 11:26 | XMS_ITS | Encounter Summary ---
:1960 Author Organization [facility] Address [address] [place] [address] Care Team Providers Name Role Phone Unavailable Primary Care Provider Unavailable Encounter Details Date Type Department Care Team Description 09/08/2021 Patient Outreach Department of Oncology in [place], [place] M.S.N., R.N., [address] [facility] [place] [address] [address] [place] [address] [place] [address] Social History Tobacco Use Types Packs/Day Years [...] or relatives? How often do you attend mandaeism or Never 2021 muslim services? Do you belong to any clubs or No 08/23/2021 organizations such as mandaeism groups, unions, fraternal or athletic groups, or [...]
--- OUTSIDE RECORDS SUMMARY | 2022-02-25 11:26 | XMS_ITS | Encounter Summary ---
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 [facility] Procedures Initial Rad Onc Treatment Planning CT Simulation [address] [place] [address] Referral ID Status Reason Start Date Expiration Date Visits Requ ested Visits Authorized [id number] Closed 11/03/2021 11/03/2022 1 1 Encounter Details Date Type Department Care Team Description 11/05/2021 Hospital Encounter Department of Ryley Sanchez M.D. [address] [place] [address] Malignant Neoplasm Radiation Oncology Los Wen M.D. [address] [place] [address] Of Right Main in [place], [facility] [place] [address] [place] [phone] Social History Tobacco Use Types Packs/Day Years [...] do you attend zoroastrian or Never 2021 baptism services? Do you belong to any clubs [...] planning. CT images were transferred to the OpenCurriculum treatment planning system, after a reference isocenter was determined and marked. Segmentation and treatment planning will take place priorto treatment delivery. Patient set up and imaging was appropriate and completed without incident. Air Brake Man use:No documented in this encounter Plan of [...] Time / Laterality Volume Narrative [facility] - 11/05/2021 11:03 AM CDT Hayley Bergman, RTT ? 11/05/2021 11:03 AM Initial Rad Onc Treatment Planning CT Si mulation Date/Time: 11/05/2021 11:03 AM Performed by: Los Wen M.D. Authorized by: Aidee Sanchez M.D. Aidee Sanchez M.D. RADIATION ONCOLOGY ORDERABLE S Performing Organization Address City/State/ZIP Code Phon e Number [facility] na documented in this encounter Visit Diagnoses Diagnosis Malignant Neoplasm Of Right Main Bronchu s (HCC) documented in this encounter
--- OUTSIDE RECORDS SUMMARY | 2022-02-25 11:26 | XMS_ITS | Encounter Summary ---
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) [facility] 200 [place] [address] Referral ID Status Reason Start Date Expiration Date Visits Requ ested Visits Authorized [id number] Closed 09/01/2021 09/01/2022 1 1 Scheduling Instructions Patient would like to be called once norbert ointments scheduled Reason for Visit Outpatient (Routine) - Closed Specialty Diagnoses / Procedures Referred By Contact Refer red To Contact Radiation Oncology Diagnoses Malignant Neoplasm Of Bronchus And Lung Multiple Site Right (HCC) [facility] 200 [place] [address] Referral ID Status Reason Start Date Expiration Date Visits Requ ested Visits Authorized [id number] Closed 09/01/2021 09/01/2022 1 1 Encounter Details Date Type Department Care Team Description 09/10/2021 Hospital Encounter Department of Lamar Roque Malignan t Neoplasm Of Right Main Bronchus (HCC) (Primary Dx); Radiation Oncology MJono, Ph.D. Malignant Neoplasm Of Bronchus And Lung Multiple Site Right (HCC) in [place] [address] [place], [place] 200 [facility] [address] [place], [place] [phone] (Work) [phone] Social History Tobacco Use Types Packs/Day Years [...] do you attend caodaism or Never 2021 orthodoxy services? Do you belong to any clubs [...] M.D. SUPERVISING PHYSICIAN Lamar Roque MD, PhD ([phone]). 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 Asked to see patient with a recently diagnosed stage IIIB, [id number] vs stage IIIC [id number] right middle lobe lung adenocarcinoma for evaluation for radiation therapy. HISTORY OF PRESENT ILLNESS: History was obtained from the patient and his . Mr. Hector Norris is a 61-year-old male who was recently diagnosed with astage IIIB, [id number] middle lobe lung adenocarcinoma. He is a [...] to his diagnosis of lung cancer. Mr. Norris states that he can lie on his [...] He is interested in receiving treatment at [facility] as well as potential radiation therapy at our outreach radiation oncology practice in [place], [place]. REVIEW OF SYSTEMS: A complete 14-point [...] and Family: Once a week ??? Attends Confucianism Services: Never ??? 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 FAMILY HISTORY: ??? Cancer-prostate Father ??? Lung [...] with a recent diagnosis a stage IIIB, [id number] vs stage IIIC [id number] right middle lobe lung adenocarcinoma for evaluation [...] at our outreach radiation oncology practice in [place], [place]. I stated that we could refer him to them when it is time to proceed with radiation therapy. We also discussed the potential for proton beam radiation therapy as an option for treatment if necessary which could only be done in [place]. I informed them of the potential acute [...] he is interested in treatment at our [place] facility. We will see Mr. Norris again after 2-3 months of systemic therapy with restaging imaging to reassess him for chemoradiation. Lamar Roque MD, PhD Religion Professor Senior Business Architect Department of Radiation Oncology [facility] documented in this encounter Miscellaneous Notes Addendum Note - Lamar Roque M.D., Ph.D. - 09/10/2021 10:30 AM CDT Encounter addended by: Laamr Roque M.D., Ph.D. on: 09/10/2021 3:49 PM [...]
--- OUTSIDE RECORDS SUMMARY | 2022-02-25 11:26 | XMS_ITS | Encounter Summary ---
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 200 [facility] [address] [place] [phone] Referral ID Status Reason Start Date Expiration Date Visits V isits Requested Authorized [id number] Authorized 09/10/2021 09/10/2022 5 5 Encounter Details Date Type Department Care Team Description 09/15/2021 Infusion Department of Oncology Deepthi Mcqueen , Malignant Neoplasm Of in [facility] rotary swaging machine operator LAN, C.N.P., Right Main Bronchus 200 [facility] M.S.N. (HCC) (Primary Dx) [place], [place] [address] [facility] [address] [place], [place] [phone] (Wo rk) Social History Tobacco Use Types [...] do you attend muslim or Never 2021 lutheran services? Do you belong to any clubs [...] pembrolizumab and approximately 30 minutes prior to hopi agent sodium chloride 0.9 % injection 3 mL Given 09/15/2021 10:57 AM CDT 20 mL 3 mL, intra-catheter, As needed, line care, Starting on Tue09/15/21 at 0934, Prior to and following infusion and between multiple consecutive infusions. documented in this encounter
--- OUTSIDE RECORDS SUMMARY | 2022-02-25 11:26 | XMS_ITS | Encounter Summary ---
:1960 Author Organization [facility] Address [address] [place] [address] Care Team Providers Name Role Phone Unavailable Primary Care Provider Unavailable Encounter Details Date Type Department Care Team Description 11/11/2021 Hospital Encounter Department of Radiation Ruperto Wen, Oncology in [place] [address] [facility] [address] [place] [address] [phone] Social History Tobacco Use Types Packs/Day Years [...] or relatives? How often do you attend congregational or Never 2021 oriental orthodox services? Do you belong to any clubs or No 08/23/2021 organizations such as congregational groups, unions, fraternal or athletic groups, or [...] or the highest technical, or vocational p [facility] degree you have received? Sex Assigned at [...]
--- OUTSIDE RECORDS SUMMARY | 2022-02-25 11:26 | XMS_ITS | Encounter Summary ---
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 [address] [place] [address] 200 [place] [phone] Referral ID Status Reason Start Date Expiration Date Visits V isits Requested Authorized [id number] Authorized 09/10/2021 09/10/2022 5 5 Encounter Details Date Type Department Care Team Description 09/15/2021 Education Department of Oncology Deepthi Mcqueen APRN, C.NKatharine, M.S.N. [address] [place] [phone] Malignant Neoplasm Of in [place], Estefany Castillo R.N. [address] [place] [phone] Right Main Bronchus [place] (HCC) [address] [place] [phone] Social History Tobacco Use Types Packs/Day Years [...] do you attend protestant or Never 2021 jainism services? Do you belong to any clubs [...] team. He will betransitioned his care to [place] for the next cycle and already has [...] completed today. I did explain that the [place] team will have to review that with [...]
--- OUTSIDE RECORDS SUMMARY | 2022-02-25 11:26 | XMS_ITS | Encounter Summary ---
:1960 Author Organization [facility] Address [address] [place] [address] Care Team Providers Name Role Phone Unavailable Primary Care Provider Unavailable Encounter Details Date Type Department Care Team Description 11/16/2021 Hospital Encounter Department of Radiation Los Flores M.D. [address] [place] [address] Oncology in [facility] Aidee Sanchez M.D. [address] [place] [address] [address] Social History Tobacco Use Types [...] do you attend religious or Never 2021 yazidism services? Do you belong to any clubs [...]
--- OUTSIDE RECORDS SUMMARY | 2022-02-25 11:26 | XMS_ITS | Encounter Summary ---
:1960 Author Organization [facility] Address [address] [place] [address] Care Team Providers Name Role Phone Unavailable Primary Care Provider Unavailable Encounter Details Date Type Department Care Team Description 09/10/2021 Lab Department of Laboratory Deepthi Mcqueen, Malignant Neoplasm Of Medicine and Pathology, Deanna MONTENEGRO NAllenP., M.S.N. Right Main Bronchus [facility] in [address] [place] [address] ([facility]) [place], [place] [address] [place] [address] [place] [address] [phone] Social History Tobacco Use Types Packs/Day Years [...] or relatives? How often do you attend episcopal or Never 2021 methodist services? Do you belong to any clubs or No 08/23/2021 organizations such as episcopal groups, unions, fraternal or athletic groups, or [...] Name Priority Date/Time Associated Diagnosis Comme nts [id number] CDX Routine 09/10/2021 3:44 PM Malignant Neoplasm Of Results for this CDT Right Main Bronchus procedur e are in (HCC) the results section. documented in this encounter Results [id number] CDx - Sent Out Lab (09/10/2021 3:44 PM CDT) [facility] Method Time Signature [id number] SEE COMMENT 09/22/2021 GUAR CDx 10:40 AM CDT Comment: For final report, select Lab-Send Out L ab Results hyperlink below. Specimen Anatomical Collection Method Collection Time Receive d Time (Source) Location / / Volume Laterality Varies (Blood, 09/10/2021 3:44 PM 022 8:13 Venous) CDT AM CDT Narrative [facility] - 09/22/2021 10:40 AM CD T Specimen Information: Specimen ID: [id number] Specimen Type: Varies Specimen Collection Start Date: 09/11/19 ??3:44 PM Specimen Received Date: 09/11/2021 ??8:1 3 AM Specimen ID: [id number] Specimen Type: Varies Specimen Collection Start Date: 09/11/19 ??3:44 PM Specimen Received Date: 09/11/2021 ??8:1 3 AM Deepthi Mcqueen APRN, C.N.P., M.S.N. 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
--- OUTSIDE RECORDS SUMMARY | 2022-02-25 11:26 | XMS_ITS | Encounter Summary ---
:1960 Author Organization [facility] Address [address] [place] [address] Care Team Providers Name Role Phone Unavailable Primary Care Provider Unavailable Reason for Visit Reason Comments Triage Internal referral from Sonido angela Encounter Details Date Type Department Care Team Description 09/01/2021 Clinical Communication Department of Javon Gastelum (Internal Oncology in [place] Hickey APRN, referral from Bessy Bruner, M.S. Pulmonary) [address] [place] [phone] [phone] Social History Tobacco Use Types Packs/Day Years [...] or relatives? How often do you attend yarsani or Never 2021 muslim services? Do you belong to any clubs or No 08/23/2021 organizations such as yarsani groups, unions, fraternal or athletic groups, or [...]
--- OUTSIDE RECORDS SUMMARY | 2022-02-25 11:26 | XMS_ITS | Encounter Summary ---
:1960 Author Organization [facility] Address [address] [place] [address] Care Team Providers Name Role Phone Unavailable Primary Care Provider Unavailable Reason for Referral Specialty Diagnoses / Procedures Referred By Contact Refer red To Contact Deepthi Mcqueen APRN, [facility] C.N.Giancarlo, M.S.N. 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 Procedures US Lower Extremity Veins Left Bessy, M.S.N. 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 Edema Localized 200 [facility] 200 [place] [phone] Social History Tobacco Use Types Packs/Day Years [...] or relatives? How often do you attend cheondoism or Never 2021 faith services? Do you belong to any clubs or No 08/23/2021 organizations such as cheondoism groups, unions, fraternal or athletic groups, or [...] or the highest technical, or vocational p Beegitram degree you have received? Sex Assigned at [...] file. REQUESTING PROVIDER Radha Moore M.D. 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 Originally from [place], has been in [place] for the past 24 years. Usually when [...] immunohistochemistry studies (clone 22C3, [employer] [place], [place], [place]; using a proprietary detection system) (C1): [...] reagent. Its performance characteristics were determined by [facility] in a manner consistent with CLIA [...] cycle 1 next week Consult medical oncology [place] for continuity of care closer to home. I have requested from scheduling for him to start treatment here next week to allow for more time for him to establish with the care team at [facility] for subsequent cycles. Consider adding pembrolizumab with [...] physicians, nurse practitioners/physician assistants, nurses and other technical support representative that specialize in this cancer. Also, reviewed [...] as of this encounter Results Thyroid Function Se[place]our (09/15/2021 6:39 AM CDT) athologist Signature TSH, Sensitive 0.4 0.3 - 4.2 09/15/2021 DTL mIU/L 7:58 AM CDT Specimen Anatomical Collection Method Collection Time Receive d Time (Source) Location / / Volume Laterality Blood (Blood, 09/15/2021 6:39 AM 09/16/19 7:23 Venous) CDT AM CDT Deepthi Mcqueen APRN, C.N.P., M.S.N. LAB BLOOD ADD-O N Performing Organization Address City/State/ZIP Code Phon e Number [facility] - 200 [place], [place] [address] [facility] [place] [address] [facility] [address] [facility] (ABNORMAL) Comprehensive Metabolic Panel (09/15/2021 6:39 [...] 09/15/2021 DTL Black/ mL/min/BSA 7:58 AM CDT South African Comment: ----ADDITIONAL INFORMATION---- Estimated GFR calculated using [...] Organization Address City/State/ZIP Code Phon e Number [facility] - [address] [place], [place] [address] [facility] [place] [address] [facility] [address] (ABNORMAL) CBC with Differential, Blood (09/15/2021 6:39 AM CDT) [facility] [employer] Method Time Signature Hemoglobin 12.0 (L) 13.2 [...] Organization Address City/State/ZIP Code Phon e Number [facility] - [address] [place], [place] [address] [facility] [place] [address] [facility] [address] [place] [address] CDx - Sent Out Lab (09/10/2021 3:44 PM CDT) [facility] gist Method Time Signature [place] [address] SEE COMMENT 09/22/2021 GUAR CDx 10:40 AM CDT Comment: For final report, select Lab-Send Out L ab Results hyperlink below. Specimen Anatomical Collection Method Collection Time Receive d Time (Source) Location / / Volume Laterality Varies (Blood, 09/10/2021 3:44 PM 022 8:13 Venous) CDT AM CDT Narrative [facility] - 09/22/2021 10:40 AM CD T Specimen Information: Specimen ID: [id number] Specimen Type: Varies Specimen Collection Start Date: 09/11/19 ??3:44 PM Specimen Received Date: 09/11/2021 ??8:1 3 AM Specimen ID: [id number] Specimen Type: Varies Specimen Collection Start Date: 09/11/19 ??3:44 PM Specimen Received Date: 09/11/2021 ??8:1 3 AM Deepthi Mcqueen APRN C.N.PAllen, M.S.N. LAB GENETIC [facility] Performing Organization Address City/State/ZIP Code Phon e Number [facility] [address] [place] [address] [place], [place] [address] [place] [address] [place] Lower Extremity Veins Left (09/10/2021 3:13 [...] man agement can be found on the [employer] site. Link [email or web address]://Inspirato.[facility] hospitalFuture Simpleorg/topic/clinical-answers/cnt-16669448/[facility]-204 [address] Procedure Note Lele [place] M.B., B.Ch. - [...] man agement can be found on the [employer] site. Link [email or web address]://Inspir[employer].[facility].org/topic/clinical-answers/cnt-36318712/[facility]-204 [address] IMPRESSION: Negative for acute DVT. Deepthi Mcqueen [...]
--- OUTSIDE RECORDS SUMMARY | 2022-02-25 11:26 | XMS_ITS | Encounter Summary ---
:1960 Author Organization [facility] Address [address] [place] [address] Care Team Providers Name Role Phone Unavailable Primary Care Provider Unavailable Reason for Visit Appointment Request (Routine) - Closed Specialty Diagnoses / Procedures Referred By Contact Refer red To Contact Radiation Oncology Diagnoses Malignant Neoplasm Of Bronchus And Lung Right (HCC) Sara Jenkins APRN [address] [place] [phone] Referral ID Status Reason Start Date Expiration Date Visits Requ ested Visits Authorized [id number] Closed 11/04/2021 11/04/2022 1 1 Encounter Details Date Type Department Care Team Description 11/05/2021 Hospital Encounter Department of [place] Neoplasm Radiation Oncology Tj Childress Of Lung Middle Lobe in [address] Or Bronchus (HCC) [place], [place] (Primary Dx) [address] [facility] [address] [place], [place] [phone] [address] (Work) [phone] Social History Tobacco Use Types Packs/Day Years [...] do you attend caodaism or Never 2021 yazidism services? Do you belong to any clubs or No 08/23/2021 organizations such as caodaism groups, unions, fraSolvAxis or athletic groups, or school groups? How [...] Bronchus (HCC) SUPERVISED BY: [place] M.D. ([phone]) HISTORY OF PRESENT ILLNESS Mr. Hector Norris [...] 1 pemetrexed and carboplatin administered at [facility] in [place]. 10/05/21: Cycle 2 pemetrexed, carboplatin, and pembrolizumab administered at [facility]. Pembrolizumab / PEMEtrexed / CARBOplatin Start [...] case was reviewed by Dr. Roque in [place], who previously saw the patient, as well as Dr. Sanchez in [place]. We discussed the recommendation for palliative radiation [...] Mejias P.A.-C., M.S. 11/05/2021 1:11 PM CDT [facility] [address] [place] [address] Associated attestation - [place] M.D. - [...] [place] M.D. 11/05/21 7:01 PM CDT [facility] [place] documented in this encounter Miscellaneous Notes Addendum [...]
--- OUTSIDE RECORDS SUMMARY | 2022-02-25 11:26 | XMS_ITS | Encounter Summary ---
:1960 Author Organization [facility] Address [address] [place] [address] Care Team Providers Name Role Phone Unavailable Primary Care Provider Unavailable Encounter Details Date Type Department Care Team Description 11/13/2021 Hospital Encounter Department of Radiation Los Flores M.D. [address] [place] [address] Oncology in [facility] Aidee Sanchez M.D. [address] [place] [address] [address] Social History Tobacco Use Types [...] or relatives? How often do you attend restorationist or Never 2021 hinduism services? Do you belong to any clubs or No 08/23/2021 organizations such as restorationist groups, unions, fraternal or athletic groups, or [...]
--- OUTSIDE RECORDS SUMMARY | 2022-02-25 11:26 | XMS_ITS | Encounter Summary ---
:1960 Author Organization [facility] Address [address] [place] [address] Care Team Providers Name Role Phone Unavailable Primary Care Provider Unavailable Encounter Details Date Type Department Care Team Description 09/14/2021 Education Department of Patient Gabriele Juarez M.D., Ph.D. [address] [place] [address] Malignant Neoplasm Of Education in [facility], Mikayla ColbertSAllenN., R.N. [address] [place] [address] Bronchus And Lung [place] Multiple Site Left [address] [place] [address] ([facility] [place] [phone] Social History Tobacco Use Types Packs/Day Years [...] do you attend rastafari or Never 2021 caodaism services? Do you [...]
--- OUTSIDE RECORDS SUMMARY | 2022-02-25 11:26 | XMS_ITS | Encounter Summary ---
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 [address] [place] [phone] Referral ID Status Reason Start Date Expiration Date Visits Requ ested Visits Authorized [id number] Closed 09/10/2021 09/10/2022 1 1 Encounter Details Date Type Department Care Team Description 09/10/2021 Hospital Encounter Department of Deepthi Mcqueen Neoplasm Of Right Main Bronchus (HCC); Radiology, Gonda N, TRAFFIC SUPERVISOR, C.N.P., Edema L ocalized ; Building, in M.S.N. Edema Localized [place], [address] [place], [place] [address] [facility] [address] [place], [place] [phone] (Work) [phone] Social History Tobacco Use Types Packs/Day Years [...] do you attend mandaeism or Never 2021 church services? Do you [...] man agement can be found on the AVOB site. Link [email or web address]/clinical-[email or web address]/[email or web address] Procedure Note Lele Harrison M.B., B.Ch. - [...] man agement can be found on the AVOB site. Link [email or web address]/topic/clinical-answers/[email or web address] IMPRESSION: Negative for acute DVT. Deepthi Mcqueen APRN, C.N.P., M.S.N. IMG US PROCEDUR ES documented in this encounter Visit Diagnoses Diagnosis Malignant Neoplasm Of Right Main Bronchu s (HCC) Edema Localized documented in this encounter
--- OUTSIDE RECORDS SUMMARY | 2022-02-25 11:26 | XMS_ITS | Encounter Summary ---
:1960 Author Organization [facility] Address [address] [place] [address] Care Team Providers Name Role Phone Unavailable Primary Care Provider Unavailable Encounter Details Date Type Department Care Team Description 09/10/2021 Clinical Communication Department of Radiation Messi Roque, Oncology in [place], Tj, Ph. D. [place] [address] [address] [facility] [address] [place] [phone] [phone] Social History Tobacco Use Types Packs/Day Years [...] or relatives? How often do you attend latter day or Never 2021 amish services? Do you belong to any clubs or No 08/23/2021 organizations such as latter day groups, unions, fraternal or athletic groups, or [...] post systemic therapy. Lamar Roque MD, PhD Nurse Practitioner Manager [employer] Department of Radiation Oncology [facility] documented in this encounter Plan of Treatment Not on filedocumented as of this encounter Visit Diagnoses Not on filedocumented in this encounter
--- OUTSIDE RECORDS SUMMARY | 2022-02-25 11:26 | XMS_ITS | Encounter Summary ---
:1960 Author Organization [facility] Address [address] [place] [address] Care Team Providers Name Role Phone Unavailable Primary Care Provider Unavailable Encounter Details Date Type Department Care Team Description 09/04/2021 Orders Only Division of Pulmonary Radha Moore Malignant Neoplasm Of Medicine in B, MAllenD. Bronchus And Lung [place], [place] [address] [facility] Multiple Site Right [address] [place], [place] (HCC) (Primary Dx) [place] [address] [phone] Social History Tobacco Use Types Packs/Day Years [...] do you attend gnosticism or Never 2021 anglican services? Do you belong to any clubs [...]
--- OUTSIDE RECORDS SUMMARY | 2022-02-25 11:26 | XMS_ITS | Encounter Summary ---
:1960 Author Organization [facility] Address [address] [place] [address] Care Team Providers Name Role Phone Unavailable Primary Care Provider Unavailable Encounter Details Date Type Department Care Team Description 11/17/2021 Clinical Communication Department of Aidee Sanchez Radiation Oncology in [place] Cov[place] [facility] [address] [facility] [address] [place] [phone] Social History Tobacco Use Types Packs/Day Years [...] do you attend mormon or Never 2021 caodaism services? Do you [...] say that the patient was admitted to [facility] yesterday with breathing difficulties. He will not be in for treatment today and wanted the team to know what is going on. Phone number: [phone] Is it okay to leave a voicemail [...]
--- OUTSIDE RECORDS SUMMARY | 2022-02-25 11:26 | XMS_ITS | Encounter Summary ---
:1960 Author Organization [facility] Address [address] [place] [address] Care Team Providers Name Role Phone Unavailable Primary Care Provider Unavailable Encounter Details Date Type Department Care Team Description 11/18/2021 Clinical Communication Department of Adiee Sanchez Radiation Oncology in [place] [facility] [address] [facility] [address] [place] [address] [phone] Social History Tobacco Use Types Packs/Day Years [...] many times do you More than three lso es a week 08/23/2021 talk on the phone with family, friends, or neighbors? How often do you get together with friends Once a week 08/23/2021 or relatives? How often do you attend roman catholic or Never 2021 jain services? Do you belong to any clubs or No 08/23/2021 organizations such as roman catholic groups, unions, fraternal or athletic groups, or [...] phone call from Dr. Contreras, Mr. Norris's pipe stem sawyer. We discussed his care. I explained GRID [...] a CT chest on October 30 at [facility]. I don't think the November 17 CT looks very different. He has my number and can call me with more questions. documented in this encounter Plan of Treatment Not on filedocumented as of this encounter Visit Diagnoses Not on filedocumented in this encounter
--- OUTSIDE RECORDS SUMMARY | 2022-02-25 11:26 | XMS_ITS | Encounter Summary ---
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 [facility] Procedures MR Brain without and with IV Contrast MR Brain with IV Contrast SC MRI BRAIN W CNTRST [address] [place], [place] [address] Referral ID Status Reason Start Date Expiration Date Visits V isits Requested Authorized [id number] Modified 08/27/2021 08/27/2022 1 1 Order Encounter Details Date Type Department Care Team Description 09/10/2021 Hospital Encounter Department of Catia Moore Neoplasm Radiology, Mcrae Helena Radha B, M.D. Of Bronchus And Lung [place], in 200 [facility] Multiple Site Left [place], [place] ([facility]) [place] [address] 200 [facility] [phone] [place], [place] (Work) [phone] Social History Tobacco Use Types Packs/Day Years [...] or relatives? How often do you attend worship or Never 2021 confucianism services? Do you belong to any clubs or No 08/23/2021 organizations such as worship groups, unions, fraternal or athletic groups, or [...] or the highest technical, or vocational p [facility] degree you have received? Sex Assigned at [...]
--- OUTSIDE RECORDS SUMMARY | 2022-02-25 11:26 | XMS_ITS | Encounter Summary ---
:1960 Author Organization [facility] Address [address] [place] [address] Care Team Providers Name Role Phone Unavailable Primary Care Provider Unavailable Reason for Referral Specialty Diagnoses / Procedures Referred By Contact Refer red To Contact Gabriele Juarez M.D., [facility] Ph.D. [address] [place] [phone] Referral ID Status Reason Start Date Expiration Date Visits Requ ested Visits Authorized Reason for Visit Reason Comments NT needed 09/15 8am Encounter Details Date Type Department Care Team Description 09/10/2021 Clinical Communication Department of HUGO Juarez 09/15 8am Oncology in Franc Suazo M.D., Ph.D. [address] [place] [phone] Social History Tobacco Use Types Packs/Day Years [...] or relatives? How often do you attend anglican or Never 2021 confucianism services? Do you belong to any clubs or No 08/23/2021 organizations such as anglican groups, unions, [employer] or athletic groups, or school groups? How [...]
--- OUTSIDE RECORDS SUMMARY | 2022-02-25 11:26 | XMS_ITS | Encounter Summary ---
:1960 Author Organization [facility] Address [address] [place] [address] Care Team Providers Name Role Phone Unavailable Primary Care Provider Unavailable Encounter Details Date Type Department Care Team Description 11/12/2021 Hospital Encounter Department of Radiation [place] M.D. [address] [place] [address] Oncology in [facility] Aidee Sanchez M.D. [address] [place] [address] [address] Social History Tobacco Use Types [...] or relatives? How often do you attend bahai or Never 2021 voodoo services? Do you belong to any clubs or No 08/23/2021 organizations such as bahai groups, unions, fraternal or athletic groups, or [...]
--- OUTSIDE RECORDS SUMMARY | 2022-02-25 11:26 | XMS_ITS | Encounter Summary ---
:1960 Author Organization [facility] Address [address] [place] [address] Care Team Providers Name Role Phone Unavailable Primary Care Provider Unavailable Encounter Details Date Type Department Care Team Description 11/19/2021 Patient Outreach Department of Oncology in [place], [place] M.S.N., R.N., [address] [facility] [place] [phone] [phone] [place] [address] [place] [address] Social History Tobacco Use Types Packs/Day Years [...] do you attend sikhism or Never 2021 nondenominational services? Do you [...]
--- OUTSIDE RECORDS SUMMARY | 2022-02-25 11:27 | XMS_ITS | Encounter Summary ---
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 [facility] Procedures Bronchoscopy (Adult): 200 [place], [place] [address] Referral ID Status Reason Start Date Expiration Date Visits Requ ested Visits Authorized [id number] Closed 08/27/2021 08/27/2022 1 1 Encounter Details Date Type Department Care Team Description 08/28/2021 Hospital Encounter Division of Yoandy Birmingham Malignan t Neoplasm Of Pulmonary Medicine Tj Bronchus And Lung in [place], 200 [facility] Multiple Site Right [place], [place] (HCC) 200 [facility] [address] [place], [place] [phone] (Work) [phone] Social History Tobacco Use Types Packs/Day Years [...] do you attend islam or Never 2021 taoist services? Do you belong to any clubs or No 08/23/2021 organizations such as islam groups, unions, fraNet[employer] or athletic groups, or school groups? How [...] 12:51 PM 22C3, CDT [place], [place], [place]; using a proprietary detection system) (C1): [...] performance characteristics were determined by [facility] in a manner consistent with CLIA [...] Organization Address City/State/ZIP Code Phon e Number [facility] - [address] [place], [place] [address] [facility] [place] [address] Laboratories-[facility] [address] documented [...]
--- OUTSIDE RECORDS SUMMARY | 2022-02-25 11:27 | XMS_ITS | Encounter Summary ---
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 [facility] Procedures MR Brain without and with IV Contrast MR Brain with IV Contrast 200 [place] [address] Referral ID Status Reason Start Date Expiration Date Visits V isits Requested Authorized [id number] Modified 08/17/2021 08/17/2022 1 1 Order Encounter Details Date Type Department Care Team Description 08/17/2021 Documentation Division of Pulmonary Galen Potter M.D. Medicine in [address] [place] [address] [place] [address] [phone] Social History Tobacco Use Types Packs/Day Years [...] do you attend sabianism or Never 2021 adventist services? Do you belong to any clubs or No 08/23/2021 organizations such as sabianism groups, unions, [employer] or athletic groups, or school groups? How [...] slept in a long term (including now)? Sex Assigned at Date Recorded [...] Signature VC MAX POST 3.31 L 08/27/2021 [facility] 9:58 AM CDT SUITE PostFVC 3.31 L 08/27/2021 [facility] 9:58 AM CDT SUITE PostFEV1 2.39 L 08/27/2021 [facility] 9:58 AM CDT SUITE FEV1/FVC POST 72.39 % 08/27/2021 [facility] 9:58 AM CDT SUITE FEF 25-75 % 1.69 L/s 08/27/2021 [facility] POST 9:58 AM CDT SUITE PEF POST 6.24 L/s 08/27/2021 [facility] 9:58 AM CDT SUITE FET POST 10.91 sec 08/27/2021 [facility] 9:58 AM CDT SUITE DLCO SINGLE 18.04 ml/(min*mm 08/27/2021 [facility] BREATH POST Hg) 9:58 AM CDT SUITE DLCOC SINGLE 19.58 ml/(min*mm 08/27/2021 [facility] BREATH POST Hg) 9:58 AM CDT SUITE HB 12.10 g(Hb)/dL 08/27/2021 [facility] 9:58 AM CDT SUITE VA SINGLE 4.62 L 08/27/2021 [facility] BREATH POST 9:58 AM CDT SUITE [id number] 98.00 % 08/27/2021 [facility] [place] 9:58 AM CDT SUITE PulseRest 63.00 1/min 08/27/2021 [facility] [place] 9:58 AM CDT SUITE Y9WtjCxev 93.00 % 08/27/2021 [facility] 9:58 AM CDT SUITE PulseExer 103.00 1/min 08/27/2021 [facility] [place] 9:58 AM CDT SUITE EXER TIME 3.00 min 08/27/2021 [facility] 9:58 AM CDT SUITE STEP HEIGHT 9.00 Inch 08/27/2021 [facility] PRE 9:58 AM CDT SUITE TLC POST 4.93 L 08/27/2021 [facility] 9:58 AM CDT SUITE VC POST 3.34 L 08/27/2021 [facility] 9:58 AM CDT SUITE FRCPLETH POST 2.90 L 08/27/2021 [facility] 9:58 AM CDT SUITE RV 1.59 L 08/27/2021 [facility] SU[facility] RV % TLC POST 32.32 % 08/27/2021 [facility] 9:58 AM CDT SUITE VC MAX PRE 3.50 L 08/27/2021 [facility] 9:58 AM CDT SUITE FVC 3.50 L 08/27/2021 [facility] 9:58 AM CDT SUITE FEV1 2.25 L 08/27/2021 [facility] 9:58 AM CDT SUITE FEV1/FVC 64.11 % 08/27/2021 [facility] 9:58 AM CDT SUITE JSV75-53% 1.26 L/s 08/27/2021 [facility] 9:58 AM CDT SUITE PEF PRE 6.11 L/s 08/27/2021 [facility] 9:58 AM CDT SUITE FET PRE 9.65 sec 08/27/2021 [facility] 9:58 AM CDT SUITE SUBSTANCE POST Albuterol 08/27/2021 [facility] 9:58 AM CDT SUITE DOSE POST 2 Puff 08/27/2021 [facility] 9:58 AM CDT SUITE % PRED VC MAX 92 % % 08/27/2021 [facility] 9:58 AM CDT SUITE FVC% 92 % % 08/27/2021 [facility] 9:58 AM CDT SUITE FEV1% 75 % % 08/27/2021 [facility] 9:58 AM CDT SUITE % PRED 82 % % 08/27/2021 [facility] [place] FEV1/FVC 9:58 AM CDT SUITE % PRED FEF 49 % % 08/27/2021 [facility] 25-75% 9:58 AM CDT SUITE % PRED PEF 83 % % 08/27/2021 [facility] 9:58 AM CDT SUITE PRED TLC 6.05 08/27/2021 [facility] 9:58 AM CDT SUITE PRED RV 1.91 08/27/2021 [facility] 9:58 AM CDT SUITE PRED VC MAX 3.83 08/27/2021 [facility] 9:58 AM CDT SUITE PRED FVC 3.83 08/27/2021 [facility] 9:58 AM CDT SUITE PRED FEV 1 2.99 08/27/2021 [facility] 9:58 AM CDT SUITE PRED FEV1/FVC 78.2 08/27/2021 [facility] 9:58 AM CDT SUITE PRED FEF 2.56 08/27/2021 [facility] 25-75% 9:58 AM CDT SUITE PRED PEF 7.4 08/27/2021 [facility] 9:58 AM CDT SUITE PRED DLCO 23.3 08/27/2021 [facility] 9:58 AM CDT SUITE PRED DLCOc 23.3 08/27/2021 [facility] 9:58 AM CDT SUITE Specimen (Source) Anatomical Collection Method Collection Time Re ceived Time Location / / Volume Laterality 08/27/2021 7:04 AM CDT Impressions [facility] - 08/27/2021 9:58 AM C DT Abnormal [...] Organization Address City/State/ZIP Code Phon e Number [facility] NA MR Brain without and with [...] most prominent within the brainstem. Somewhat prominent offal icer poultry ior aspect of the pituitary gland, without [...] most prominent within the brainstem. Somewhat prominent offal icer poultry ior aspect of the pituitary gland, without [...] 08/26/2021 DTL Black/ mL/min/BSA 11:12 AM CDT Turkmen Comment: ----ADDITIONAL INFORMATION---- Estimated GFR calculated using [...] Organization Address City/State/ZIP Code Phon e Number [facility] - [facility] [address] [place], [place] [address] [facility] [place] [address] Laboratories-[facility] [address] (ABNORMAL) CBC with Differential, Blood (08/26/2021 10:16 AM CDT) [facility] gist Method Time Signature Hemoglobin 12.1 [...] Organization Address City/State/ZIP Code Phon e Number [facility] - [address] [place], [place] [address] 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
--- OUTSIDE RECORDS SUMMARY | 2022-02-25 11:27 | XMS_ITS | Encounter Summary ---
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 Do you belong to any clubs [...] or the highest technical, or vocational p [facility] degree you have received? Sex Assigned at [...] 08/26/2021 DTL Black/ mL/min/BSA 11:12 AM CDT Samoan Comment: ----ADDITIONAL INFORMATION---- Estimated GFR calculated using [...] Organization Address City/State/ZIP Code Phon e Number [facility] - [address] [place], [place] [address] [facility] [place] [place] [address] Laboratories-[facility] [address] [facility] (ABNORMAL) CBC with Differential, Blood (08/26/2021 10:16 AM CDT) [facility] gist Method Time Signature Hemoglobin 12.1 [...] Organization Address City/State/ZIP Code Phon e Number [facility] - [address] [place], [place] [address] [facility] [place] [address] Laboratories-[facility] [address] documented in this encounter Visit Diagnoses Diagnosis 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
--- OUTSIDE RECORDS SUMMARY | 2022-02-25 11:27 | XMS_ITS | Encounter Summary ---
:1960 Author Organization [facility] Address [address] [place] [address] Care Team Providers Name Role Phone Unavailable Primary Care Provider Unavailable Encounter Details Date Type Department Care Team Description 08/27/2021 Ancillary Department of Radha Moore Neop lasm Procedure Radiology in Radha Ladd M.D. Of Bronchus And Lung [place] [address] [address] [facility] Multiple Site Right [place], [place] ([facility] [address] [facility] [address] [place], [place] [phone] (Work) Social History Tobacco Use Types Packs/Day [...] or relatives? How often do you attend adventism or Never 2021 christianity services? Do you belong to any clubs or No 08/23/2021 organizations such as adventism groups, unions, fraternal or athletic groups, or [...]
--- OUTSIDE RECORDS SUMMARY | 2022-02-25 11:27 | XMS_ITS | Encounter Summary ---
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 [facility], in [place], [address] [place], [place] [address] [facility] [address] [place], [place] [phone] (Work) [phone] Social History Tobacco Use Types Packs/Day Years [...] do you attend confucianism or Never 2021 samaritan services? Do you [...] Neuroradiology [place] N/A Magnetic Resonance [place], Neuroradiology [facility] Specimen (Source) Anatomical Collection Method Collection Time [...] most prominent within the brainstem. Somewhat prominent customer operations representative ior aspect of the pituitary gland, without [...] most prominent within the brainstem. Somewhat prominent customer operations representative ior aspect of the pituitary gland, without [...]
--- OUTSIDE RECORDS SUMMARY | 2022-02-25 11:27 | XMS_ITS | Encounter Summary ---
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 [facility] Procedures MR Brain without and with IV Contrast MR Brain with IV Contrast MI MRI BRAIN [address] [facility] [address] [place] [address] Referral ID Status Reason Start Date Expiration Date Visits V isits Requested Authorized [id number] Modified 08/27/2021 08/27/2022 1 1 Order Outpatient (Routine) - Closed Specialty Diagnoses / Procedures Referred By Contact Refer red To Contact Radha Moore M.D. 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 [facility] Procedures ECG 12 Lead [address] [place] [address] Referral ID Status Reason Start Date Expiration Date Visits Requ ested Visits Authorized [id number] Closed 08/27/2021 08/27/2022 1 1 Reason for Visit Appointment Request (Routine) - Closed Specialty Diagnoses / Procedures Referred By Contact Refer red To Contact Pulmonary Medicine Diagnoses Malignant Neoplasm Of Unspecified Part Of Lung Laterality Unknown (HCC) Tin Hernandez M.D., M[facility]P.H[facility] 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 Do you [...] to percutaneous biopsy. He is presenting to [facility] for further workup of his lung nodule, [...] July of 2021. 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 He has been exposed to significant dust including still,iron, wood dust as well as pneumonia. 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 Family history Father with lung cancer [...] RST [place], Neuroradiology ARZ N/A Magnetic Resonance [facility], Neuroradiology [facility] Specimen (Source) Anatomical Collection Method [...] Signature Ventricular Rate 56 BPM MUSE ECG/Min MI Interval 172 ms MUSE QRSD Interval 96 ms MUSE QT Interval 444 ms MUSE QTC Interval 428 ms MUSE P [place] 18 degrees MUSE R [place] 6 degrees MUSE T Wave [place] 12 degrees MUSE Specimen Anatomical Collection Method [...] FDG avid distant metastatic disease. Radha RACHEL ID PROCEDURES documented in this encounter Visit Diagnoses [...]
--- OUTSIDE RECORDS SUMMARY | 2022-02-25 11:27 | XMS_ITS | Encounter Summary ---
:1960 Author Organization [facility] Address [address] [place] [address] Care Team Providers Name Role Phone Unavailable Primary Care Provider Unavailable Encounter Details Date Type Department Care Team Description 08/31/2021 Orders Only Division of Pulmonary Radha Carrizales Malignant Neoplasm Of Medicine in B, MAllenD. Bronchus And Lung [place], [place] [address] [facility] Multiple Site Right [address] [place], [place] (HCC) (Primary Dx) [place] [phone] Social History Tobacco Use Types Packs/Day Years [...] or relatives? How often do you attend faith or Never 2021 jew services? Do you belong to any clubs or No 08/23/2021 organizations such as faith groups, unions, fraternal or athletic groups, or [...] or the highest technical, or vocational [facility] degree you have received? Sex Assigned [...]
--- OUTSIDE RECORDS SUMMARY | 2022-02-25 11:27 | XMS_ITS | Encounter Summary ---
:1960 Author Organization [facility] Address [address] [place] [address] Care Team Providers Name Role Phone Unavailable [...] do you attend protestant or Never 2021 sabianism services? Do you belong to any clubs [...]
--- OUTSIDE RECORDS SUMMARY | 2022-02-25 11:27 | XMS_ITS | Encounter Summary ---
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 [facility] [address] [place] [phone] Referral ID Status Reason Start Date Expiration Date Visits Requ ested Visits Authorized [id number] Closed 08/27/2021 08/27/2022 1 1 Encounter Details Date Type Department Care Team Description 09/01/2021 Virtual Visit Division of Pulmonary Radha Moore Malignant Neoplasm Of Medicine in B, MEdison. Bronchus And Lung [place], [place] [address] [facility] Multiple Site Right [address] [place], [place] (HCC) (Primary Dx) [place] [phone] Social History Tobacco Use Types Packs/Day Years [...] do you attend holiness or Never 2021 yazdanism services? Do you [...] DNA change: c.35G>A Amino Acid change: p.G12D ([id number]) Classification: MUTATION No additional reportable alterations were identified within the analyzed regions of the tested genes listed in the method description. Released By Justo Sierra, 09/16/2021 MARIO Spencer 12:47 PM CDT Additional CLINICAL TRIALS 09/16/2021 DTL Information Possible clinical trials of benefit for this patient c an be 12:47 PM found at the following sites: CDT 1) ClinicalTrials.gov: www.clinicaltrials.gov/ct2/search/advanced 2) [facility]: www.[facility] [place]/research/clinical-trials/ 3) [employer] Cancer [place]: www.cancer.gov/clinicaltrials/search REFERENCE TRANSCRIPT(S) Mutation nomenclature is based on the following GenBank accession number(s) (build GRCh37 (hg19)): KRAS [id number]. Specimen Cells 09/16/2021 DTL 12:47 PM CDT Tissue ID [id number] 09/16/2021 DTL (smears 3 and 6) 12:47 [...] Rev Clin Oncol. 2011 Dec 15;8(11):661-8 (PMID [id number]) 3. Int J Cancer 2011;131(5):H104-916 (PMID [id number]) 4. Mod Pathol. 2007; Suppl 2:S16-22 (PMID [id number]) 5. J Clin Oncol. 2005 Dec 24;23(25):5900-9 (PMID [id number]) Comment: ----ADDITIONAL INFORMATION---- Microscopic examination was performed [...] and additional information about this test, see www.[employer]. [facility] (Test ID CAPN). 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
--- OUTSIDE RECORDS SUMMARY | 2022-02-25 11:28 | XMS_ITS | Clinical Summary ---
:1960 Author Organization [email or web address] [facility] [place] [address] Care Team Providers Name Role Phone Hakeem Cunningham [facility] Primary Care Provider [phone] Ray Corona MD Unavailable Alejandra Fam RN, BSN, OCN Unavailable [phone] Gabriele Juarez Unavailable Aidee Sanchez MD Unavailable Allergies No known active allergies Medications Medication Sig Dispensed Refills Start End Status Date Date omeprazole Take 1 Capsule 90 Capsule 3 Act giovanni (PRILOSEC) 40 mg (40 mg) by mouth 2 Delayed-Release once daily before capsuleIndications a meal. : Chronic GERD escitalopram Take 1 Tablet (10 90 Tablet 2 Active oxalate (LEXAPRO) mg) by mouth 2 10 mg every morning. tabletIndications: Major depressive disorder, recurrent, moderate (HC) benzonatate Take 1 Capsule 90 Capsule 2 Ac tive (TESSALON) 200 mg (200 mg) by mouth 2 capsuleIndications 3 times daily if : Cough needed for Cough. folic acid 1 mg Take 1 mg by 0 A ctive tablet mouth once daily. ondansetron Take 8 mg by 0 Activ e (Zofran) 8 mg mouth every 8 tablet hours if needed for Nausea/Vomiting. tadalafiL Take 20 mg by 0 Active (CIALIS;ADCIRCA) mouth once daily 20 mg tablet if needed for Erectile Dysfunction. Take 30 minutes before sexual activity. aspirin-acetaminop Take 1 Tablet by 0 Active hen-caffeine mouth every 6 (Excedrin hours if needed Migraine) for Headache. Max 250-250-65 mg acetaminophen dose: 4000mg in 24 hrs. albuterol HFA Inhale 2 Puffs by 8.5 g 0 Active (PRO-AIR; mouth every 4 2 VENTOLIN; hours while PROVENTIL) 90 awake. mcg/actuation inhalerIndications : Cough, Pneumonia, bacterial dilTIAZem CD Take 1 Capsule 90 Capsule 3 A ctive (CARDIZEM CD) 240 (240 mg) by mouth 2 mg extended once daily. release 24 hr Replaces previous capsuleIndications RX : PAF (paroxysmal atrial fibrillation) (HC) colchicine 0.6 mg Take 1 Tablet 120 Tablet 0 Active tabletIndications: (0.6 mg) by mouth 2 Pericarditis, in the morning unspecified and 1 Tablet (0.6 chronicity, mg) in the unspecified type evening. oxyCODONE-acetamin Take 1 Tablet by 17 Tablet 0 Active ophen (Percocet) mouth every 6 2 5-325 mg per hours if needed tabletIndications: for Pain. Max Malignant neoplasm acetaminophen of hilus of right dose: 4000mg in lung (HC) 24 hrs. codeine-guaiFENesi Take 10 mL by 373 mL 2 Active n (ROBITUSSIN AC) mouth every 4 2 10-100 mg/5 mL hours if needed liquidIndications: for Cough. Max Cough dose 60 mL per 24 hrs. oxyCODONE Take by mouth 0 Active (ROXICODONE) 5 mg every 4 hours if 2 immediate release needed. tablet magic mouthwash 5 ml swich and 300 mL 1 Active w/nystatin,benadry spit 5 times a 2 l,lidocaine,predni day solone & maaloxIndications: Oral thrush fluconazole Take 1 Tablet 14 Tablet 0 Acti ve (DIFLUCAN) 100 mg (100 mg) by mouth 2 tabletIndications: once daily. Oral thrush hydrocortisone Apply topically 30 g 2 Active 2.5% to affected 2 creamIndications: area(s) two times Hemorrhoids, daily. internal clotrimazole Dissolve 1 Tablet 70 Tablet 0 Active (MYCELEX JENNIFER) (10 mg) in the 2 10 mg mouth 5 times trocheIndications: daily. Oral thrush ibuprofen (ADVIL; Take 1 Tablet 360 Tablet 0 Discontinued MOTRIN) 800 mg (800 mg) by mouth 2 022 (*Med tabletIndications: every 6 hours if complete/Regime Pericarditis, needed for Pain. n unspecified complete /Level chronicity, of care change) unspecified type, Arthralgia, unspecified joint fluconazole Take 1 Tablet 14 Tablet 0 Disc ontinued (DIFLUCAN) 100 mg (100 mg) by mouth 2 022 (Reorder tabletIndications: once daily for 14 (E-cancel not Oral thrush days. sent)) dextromethorphan-g Take 10 mL by 472 mL 1 uaiFENesin mouth every 4 2 022 (ROBITUSSIN DM) hours if needed 10-100 mg/5 mL for Cough for up liquidIndications: to 4 days. Productive cough clotrimazole Dissolve 1 Tablet 70 Tablet 0 Discontinued (MYCELEX JENNIFER) (10 mg) in the 2 022 (Reorder 10 mg mouth 5 times (E-can inessa not trocheIndications: daily for 14 sent)) Oral thrush days. Active Problems Problem Noted Date Pleural effusion [...] Encounters Date Type Specialty Care Team Description 02/12/2022 Telephone Stephen Stone MD Appointme nt (F/u appt) 02/11/2022 Office Visit [facility] F/U (Pneumonia ) [facility] 02/11/2022 Travel 01/19/2022 Orders Only Scanner <No scans attac hed> 01/05/2022 Preop Visit Ruben Ruiz, Preoperative Ex am (DOS Kaley Azul MD 01/07 at [facility]); [facility] Update (COVID-19 test done Declines flu sh ot) 01/05/2022 Telephone Gomez Merchant MD 01/05/2022 Orders Only Ruben Ruiz, <No scans attac hed> Kaley Azul MD 01/05/2022 Travel 01/05/2022 Telephone Vivian, Appointment Redanis Lange NP 12/24/2021 Orders Only Scanner <No scans attac hed> 12/23/2021 Refill Hakeem Cunningham Refill Reques t Marty Byrd (codeine-g uaiFENesin (ROBITUSSIN AC) 10-100 mg/5 mL liquid & ibuprofen (ADVI L; MOTRIN) 800 mg tablet) 12/13/2021 Refill Hakeem Cunningham Refill Requjairo t Marty Byrd (Codeine-g uaifenesin) 12/11/2021 Office Visit Hakeem Cunningham Pain (Whole b tyron pain ) Marty Byrd 12/11/2021 Travel 12/09/2021 Orders Only Lab, [facility] Lab 12/09/2021 Office Visit Cathy Prather U p (Post hospital, [place] feeling better, still having feelings of heart racing. 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 UE[facility]); Cardiology Appo intment 11/25/2021 Office Visit Hakeem Cunningham [facility] F/U (DOD: Marty Byrd 11/19/21 - Pneumonia ) 11/25/2021 Travel from Last 3 Months Immunizations Name Administration Dates Next Due COVID-19 vaccine ([employer] 09/24/2020, 09/03/2020 30mcg/0.3mL) PF, MDV Hepatitis B [...] in contact with No / Unsu re 02/11/2022 3:46 PM CDT someone who was confirmed or suspected to have Coronavirus/COVID-19? 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 Milling Machine Operator Device Shelf Model / Identifier Expiration Serial / Date Lot Mesh Inguinal 1.8x4in Marlex Preshaped W/Opening - [id number] Ge neral Left: [employer] 12/21/2023 [id number] / Implanted: Qty: 1 on 03/10/2021 by Jonny Cerna MD at [facility] Surgery Abdomen / Implants [id number] Implant On The Fly - [id number] Left: Knee DEPUY 01/22/2019 [id number] / Implanted: Qty: 1 on 07/08/2010 at [facility] / [id number] Description: FEMORAL UNI COMPONENET SZ 4 LM/RL Insert Knee Rt Sz3 [employer] Unicondylar Uhmwpe - [id number] Right: Knee [employer]iki [employer] 12/28/2019 [id number] / Implanted: Qty: 1 on 07/04/2015 by Wayne Humphries MD at [facility] / [id number] Description: Implanted Right Medial Procedures Procedure Name [...] of2 resultswithin the time period is included. [facility] gist Method Time Signature SEDIMENTATION RATE 37 (H) <20 mm/hr 01/05/2022 [facility] 7:16 PM CDT [facility] TRAL LABORATORY Specimen Anatomical Collection Method / Collection Time Recei ry Time (Source) Location / Volume Laterality Blood BLOOD SPECIMEN / Venipuncture / 01/05/2022 2:06 2021 2:06 Unknown Unknown PM CDT PM CDT Kaley Ruiz MD HEMATOLOGY Performing Organization Address City/State/ZIP Code Phon e Number [facility] [address] [place] [address] LABORATORY-CENTRAL 2000 LABORATORY (ABNORMAL) CBC W PLT NO DIFF (01/05/2022 2:06 PM CDT) Analysis Performed At [facility] logist Time Signature WHITE BLOOD 10.5 4.5 - 11.0 01/05/2022 [facility] COUNT thou/cu mm 2:[address] [facility] RED BLOOD COUNT 3.86 (L) 4.30 - 01/05/2022 [facility] 5.90 2:46 PM CDT [facility] mil/cu [facility] HEMOGLOBIN 11.5 (L) 13.5 - 01/05/2022 [facility] 17.5 g/dL 2:[address] [facility] HEMATOCRIT 35.9 (L) 37.0 - 01/05/2022 [facility] 53.0 % 2:[address] [facility] MCV 93 80 - 100 01/05/2022 [facility] fL 2:[address] [facility] MCH 29.8 26.0 - 01/05/2022 [facility] 34.0 pg 2:[address] [facility] MCHC 32.0 32.0 - 01/05/2022 [facility] 36.0 g/dL 2:[address] [facility] RDW 15.9 (H) 11.5 - 01/05/2022 [email or web address] 15.5 % 2:[address] [facility] PLATELET COUNT 447 (H) 140 - 440 01/05/2022 [facility] thou/cu mm 2:[address] [facility] MPV 9.1 6.5 - 11.0 01/05/2022 [facility] fL 2:[address] [facility] Specimen Anatomical Collection Method / Collection Time Recei ry Time (Source) Location / Volume Laterality Blood BLOOD SPECIMEN / Venipuncture / 01/05/2022 2:06 2021 2:06 Unknown Unknown PM CDT PM CDT Kaley Ruiz MD HEMATOLOGY Performing Organization Address City/[facility]/ZIP Code Phon e Number [facility] [address] [place], [place] [phone] [facility] [address] (ABNORMAL) C-REACTIVE PROTEIN (01/05/2022 2:06 PM CDT)Only the most recent of2 resultswithin the time period is included. Analysis Performed At [facility] [employer] Time Signature C-REACTIVE 1.75 (H) <0.50 01/06/2022 [email or web address] PROTEIN mg/dL 3:52 AM CDT [facility] TRAL LABORATORY Specimen Anatomical Collection Method / Collection Time Recei ry Time (Source) Location / Volume Laterality Blood BLOOD SPECIMEN / Venipuncture / 01/05/2022 2:06 2021 2:06 Unknown Unknown PM CDT PM CDT Kaley Ruiz MD CHEMISTRY Performing Organization Address City/State/ZIP Code Phon e Number [facility] [address] [place], [place] [address] [address] LABORATORY-CENTRAL 2000 LABORATORY (ABNORMAL) BASIC METABOLIC PANEL (01/05/2022 2:06 PM CDT)Only the most recent of 2 resultswithin the time period is included. Analysis [facility]formed At [facility] Time Signature SODIUM 142 135 - 145 01/06/2022 [facility] mmol/L 3:53 AM CDT [facility] TRAL LABORATORY POTASSIUM 4.3 3.5 - 5.0 01/06/2022 [facility] mmol/L 3:53 AM CDT [facility] TRAL LABORATORY CHLORIDE 109 98 - 110 01/06/2022 [email or web address] mmol/L 3:53 AM CDT [facility] TRAL LABORATORY CO2,TOTAL 23 21 - 31 01/06/2022 [facility] [email or web address] mmol/L 3:53 AM CDT [facility] TRAL LABORATORY ANION GAP 10 5 - 18 01/06/2022 [email or web address] 3:53 AM CDT [facility] TRAL LABORATORY GLUCOSE 109 (H) 65 - 100 01/06/2022 [email or web address] mg/dL 3:53 AM CDT [facility] TRAL LABORATORY CALCIUM 9.6 8.5 - 10.5 01/06/2022 [facility] [email or web address] mg/dL 3:53 AM CDT [facility] TRAL LABORATORY BUN 25 8 - 25 01/06/2022 [email or web address] mg/dL 3:53 AM CDT [facility] TRAL LABORATORY CREATININE 1.14 0.72 - 01/06/2022 [email or web address] 1.25 mg/dL 3:53 AM CDT [facility] TRAL LABORATORY BUN/CREAT RATIO 22 (H) 10 - 20 01/06/2022 [facility] [email or web address] 3:53 AM CDT [facility] TRAL LABORATORY eGFR 73 (L) >90 01/06/2022 [email or web address] mL/min/1.7 3:53 AM CDT [facility] 3m2 TRAL [...] Organization Address City/State/ZIP Code Phon e Number [employer] [address] [place] [address] LABORATORY-CENTRAL 2000 LABORATORY COVID 19 (01/05/2022 1:35 PM CDT) Analysis Performed At [facility] logist Time Signature COVID 19 Negative Negative 01/06/2022 [facility] 7:55 PM CDT [facility] MOLECULAR TRAL LABORATORY Specimen Anatomical Location / Collection Method Collection Nikita e Received Time (Source) Laterality / Volume Other SPECIMEN FROM Non-Blood / 01/05/2022 1:35 01/05/2022 9:15 NASOPHARYNGEAL Unknown PM CDT PM CDT STRUCTURE / Unknown Narrative [facility] LABORATORY-CENTRAL LABORAT ORY - 01/06/2022 7:55 PM [...] Kaley Ruiz MD MICROBIOLOGY Performing Organization Address City/[facility]/ZIP Code Phon e Number [facility] [address] [place] [address] LABORATORY-CENTRAL [facility] LABORATORY COVID 19 COLLECTION (01/05/2022 1:35 PM CDT) [facility] Method Time Signature TESTING [facility] 01/05/2022 [facility] LABORATORY Laboratory 9:16 PM CDT LABORATORY-CE NTRAL LABORATORY Comment: Specimen submitted to [facility] Laboratory for testing. Specimen Anatomical Location / Collection Method Collection Nikita e Received Time (Source) Laterality / Volume Other SPECIMEN FROM Non-Blood / 01/05/2022 1:35 01/05/2022 2:45 NASOPHARYNGEAL Unknown PM CDT PM CDT STRUCTURE / Unknown Kaley Ruiz MD SEND OUTS Performing Organization Address City/[facility]/ZIP Code Phon e Number [facility] [address] [place] [address] [place] [address] LABORATORY-CENTRAL 2000 LABORATORY EKG 12 LEAD (01/05/2022) Narrative This result has an attachment that is no t available. Kaley Ruiz MD EKG ORD SCAN-OPERATIVE/PROCEDURE REPORT (12/24/2021 12:00 AM CDT) Narrative This result has an attachment that is no t available. Scanner OTHER (ABNORMAL) HEPATIC FUNCTION PANEL (12/09/2021 3:39 PM CDT) [facility] gist Method Time Signature ALBUMIN 3.3 3.2 - 4.6 12/09/2021 [facility] g/dL 4:14 PM [facility] PROTEIN,TOTAL 5.9 (L) 6.0 - 8.0 12/09/2021 [facility] g/dL 4:14 PM [facility] GLOBULIN 2.6 2.0 - 3.7 12/09/2021 [facility] g/dL 4:[address] [facility] A/G RATIO 1.3 1.0 - 2.0 12/09/2021 [facility] 4:[address] [facility] BILIRUBIN,TOTAL 0.3 0.2 - 1.2 12/09/2021 [facility] mg/dL 4:[address] [facility] BILIRUBIN,DIRECT 0.2 0.1 - 0.5 12/09/2021 [facility] mg/dL 4:[address] [facility] BILIRUBIN,INDIRE 0.1 (L) 0.2 - 0.8 12/09/[address] mg/dL 4:[address] [facility] ALK PHOSPHATASE 129 50 - 136 12/09/2021 [facility] IU/L 4:[address] [facility] ALT (SGPT) 24 8 - 45 12/09/2021 [facility] IU/L 4:[address] [facility] AST (SGOT) 20 2 - 40 12/09/2021 [facility] IU/L 4:[address] [facility] Specimen Anatomical Collection Method / Collection Time Recei ry Time (Source) Location / Volume Laterality Blood BLOOD SPECIMEN / Venipuncture / 12/09/2021 3:39 2021 3:40 Unknown Unknown PM CDT PM CDT Cathy JIM CHEMISTRY Performing Organization Address City/State/ZIP Code Phon e Number [facility] LABORATORY SENDOUT INTERNAL ZIP [place] [phone] [facility] WO CONTRAST (12/01/2021 11:37 AM CDT) P athologist Signature EJECTION 60% PROSOLV FRACTION Anatomical Region Laterality Modality HEART Ultrasound Specimen (Source) Anatomical Collection Method Collection Time Re ceived Time Location / / Volume Laterality 12/01/2021 10:48 AM CDT Narrative 12/01/2021 1:11 PM CDT [facility] [address], [place] [address] Main: ? Transthoracic Echo Report CASH TINOCO Zainabian ID: [id number] Age: 61 : 1 06/15/1959 Ordering Provider: HAKEEM CUNNINGHAM Exam Date: 12/01/2021 10:48 Gender: M S onographer: ESCOBAR Height: 65 in BS A: 1.88 m?? BP: 146 / 83 Weight: 178 lbs BMI: 29.6 kg/m?? HR: 77 Location: [facility] Rhythm: Normal Sinus Rhythm Procedure Components: [...] mmHg Earnest Del Real MD (Electronically Signed) Critical [facility] hospital Site Final Date: 01 December 2021 13:11 ICD-10 Codes: I31.3 Procedure Note Earnest Del Real MD - 12/01/2021Form atting of this note might be different from the original. [facility] [address], [place] [address] Main: Transthoracic Echo Report CASH TINOCO ID: [id number] Age: 61 : 1 06/15/1959 Ordering Provider: HAKEEM CUNNINGHAM Exam Date: 12/01/2021 10:48 Gender: M S onographer: ESCOBAR Height: 65 in BS A: 1.88 m?? BP: 146 / 83 Weight: 178 lbs BMI: 29.6 kg/m?? HR: 77 Location: [facility] Rhythm: Normal Sinus Rhythm Procedure Components: [...] inspiratory collapse. MEASUREMENTS (Male / Female) Normal [place] ues 2D MEASUREMENTS AND LV FUNCTION IVS [...] mmHg Earnest Del Real MD (Electronically Signed) [facility] d Site Final Date: 01 December 2021 13:11 ICD-10 Codes: I31.3 [facility]em Davisrobson [facility] from Last 3 Months Insurance Payer Benefit Plan / Subscriber ID Effective Dates Phone Addre ss Type Group MEDICARE PART A MEDICARE PART A [id number] 2021-Presen ATTN: CLAIMS - HB USE ONLY HB ONLY t [address] [place] [address] BLUE CROSS BLUE CROSS OF [id number] 2021-Presen [address] [place] [phone] MEDICARE PART B MEDICARE PART B [id number] 2021-Presen ATTN: CLAIMS - HB USE ONLY HB ONLY t [address] [place] [address] MEDICARE - PB MEDICARE PB [id number] 2021-Presen ATTN : CLAIMS USE ONLY ONLY t [address] [place] [address] [place] (Home) [place] [address] Advance Directives Latest Code Status on File [...] 8:10 PM 06/06/2015 2:49 PM Care Teams Mdm Developer Relationship Specialty Start Date End Date Hakeem Cunningham PCP - General 05/09/07 [facility] [address] [place] [address] Ray Corona, Rheumatology Rheumatology 11/25/11 Alejandra Fam, RN, Nurse Navigator - Registered Nurse 08/13/21 BSN, OCN Oncology [address] [place] [address] Larry Medical Oncologist Internal Medicine 11/17/21 Gabriele [address] [place] [phone] Aidee Sanchez MD Radiation Oncologist Radiation Oncology 11/17/21 [address] [place] [phone]
--- OUTSIDE RECORDS SUMMARY | 2022-02-25 11:28 | XMS_ITS | Encounter Summary ---
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
--- OUTSIDE RECORDS SUMMARY | 2022-02-25 11:28 | XMS_ITS | Encounter Summary ---
:1960 Author Organization [facility] Address [address] [address] Care Team Providers Name Role Phone Unassigned, Provider Primary Care Provider Unavailable Reason for Visit Reason Comments EYE IRRITATION Encounter Details Date Type Department Care Team Description 10/30/2018 Emergency HH Emergency Burke Griffin, Chemical exposure of [address] eye (Primary Dx) [place], [place] [phone] [facility] [phone] [place], [place] [phone] (Wo rk) Social History Tobacco Use Types [...] be sent through Care Everywhere. Chemical Keratitis (Greek)documented in this encounter ED Notes Jaci Worthington RN - 10/30/2018 8:20 AM CDT [facility] ED Nursing Discharge Note BP 134/84 Pulse [...] Tracy MD - 10/30/2018 8:18 AM CDT [facility] Emergency Department Visit Note Chief Complaint: [...] troubling symptoms develop. Condition on disposition: Stable Jaci Worthington RN - 10/30/2018 8:06 AM CDT Provider [...] to arrival. 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
--- OUTSIDE RECORDS SUMMARY | 2022-02-25 11:28 | XMS_ITS | Encounter Summary ---
:1960 Author Organization [facility] Address [address], [place] [address] Care Team Providers Name Role Phone Unassigned, Provider Primary Care Provider Unavailable Encounter Details Date Type Department Care Team Description 05/20/2005 Emergency Room Emergency Dept Emergency, [facility] [address] [place] [address] Provider ORDERS/[place] [address] Social History Tobacco Use Types Packs/Day Years Used Date Smoking Tobacco: Never Assessed Sex Assigned at Date Recorded Not on file documented as of this encounter Progress Notes Emergency, Provider - 05/20/2005 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
--- OUTSIDE RECORDS SUMMARY | 2022-02-25 11:28 | XMS_ITS | Encounter Summary ---
:1960 Author Organization [facility] Address [address], [place] [address] Care Team Providers Name Role Phone Unassigned, Provider Primary Care Provider Unavailable Reason for Visit Reason Comments CHEMICAL EXPOSURE 11/2 hour ago Encounter Details Date Type Department Care Team Description 05/20/2005 Emergency [facility] Emergency [facility] [place], TOXIC EFFECT [facility] [address] [place], [place] [id number] [place] [address] [place] [address] Social History Tobacco Use Types Packs/Day Years Used Date Smoking Tobacco: Never Assessed Sex Assigned at Date Recorded Not on file documented as of this encounter Last Filed Vital Signs Vital Sign Reading Time Taken Comments Blood Pressure 117/58 05/20/2005 12:06 PM MANAGER DEVELOPMENT Pulse 53 05/20/2005 12:06 PM MANAGER DEVELOPMENT Temperature 36.5 ??C (97.7 ??F) 05/20/2005 12:06 PM MANAGER DEVELOPMENT Respiratory Rate 20 05/20/2005 12:06 PM MANAGER DEVELOPMENT Oxygen Saturation 100% 05/20/2005 12:06 PM MANAGER DEVELOPMENT Inhaled Oxygen Concentration - - Weight - - Height - - Body Mass Index - - documented in this encounter Discharge Instructions Discharge InstructionsFaby Heredia - 05/20/2005 2:43 PM MANAGER DEVELOPMENT Dear Ms. Norris, Thank you for choosing [facility] for your emergency medical needs. You have received emergency care only and your condition may change. Therefore, we highly recommend you follow-up with your physician as directed. For follow-up care contact: Please follow up with your primary care clinic/provider. Occupational Health [phone] For follow-up care, you should be seen [...] would like to be seen in a [facility] clinic, please call the [facility] Appointment Desk at [phone] anytime between 7:00 AM and 9:00 PM, 7 days a week, 365 days a year (Hearing Impaired: [phone]). Please bring these instructions with you when [...] observation and/or treatment. ExitCare(R) Patient Information (C)2004 [employer]. \\\epic\ExitcareNonfieldFull\NonFields\di\Welsh - No Hess\[email or web address].htm GER DEVELOPMENT documented in this encounter Consult Notes Nii Kruger R - 05/20/2005 3:10 PM MANAGER DEVELOPMENT [facility] Toxicology Consult Note Patient Name: Hector Norris [...] taken from the patient. 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 The pipes may not have been fully flushed before [employer] crew moved in. 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 Electronically Signed by: Nii Kruger MD - 05/20/2005 - 3:10 PM Director, Clinical Toxicology Service Pager: [phone] GER DEVELOPMENT documented in this encounter ED Notes [place] - 06/01/2005 3:19 AM [facility] Emergency Department Attending Supervision Note Patient Name: Hector Norris Date of : 1960 I have personally seen and examined patient. Case reviewed and discussed with Faby Heredia PA-C. PMH, FH, SOC, ROS reviewed. Please see today's note by MARGARITO. MARGARITO Care under my supervision. This electronic signature covers the nursing and ancillary testing orders for this visit. Author: [place] [facility] GER DEVELOPMENT Faby Heredia - 05/20/2005 2:43 PM [facility] Emergency Department Work Slip Patient Name: Hector Norris Date of : 1960 Date of Evaluation: 05/20/2005 Patient states this injury/illness is work related and occurred on 05/20/05 Follow-up with [facility] [phone] Tuesday or Tuesday. Return to work on 05/24/05 if the following restrictions can be met: symptoms resolved and able to be seen in the clinic Faby Heredia Attending Physician: [place] GER DEVELOPMENT Patricia Luciano - 05/20/2005 2:35 PM MANAGER DEVELOPMENT 1405 Toxicology here to see pt. Pt admits to breathing better after neb. Peak flow - 500 with little effort. Pt states he is so much better than was b/4.1445 D/C instructions given to pt. He had no fur ther questions. Pt will f/u tomorrow of Tue. with Occ. med. Left knowing what to return to ED for ifany SOB, or trouble breathing. GER DEVELOPMENT Fayb Heredia - 05/20/2005 1:52 PM [facility] Emergency Department Visit Note Patient Name: Hector Norris Date of : 1960 Chief Complaint: Patient presents with: CHEMICAL EXPOSURE--ED - 11/2 hour ago HPI: 45yo male presents to ED for chemical exposure. 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 [...] file FH-n/c Review of Systems: Please see [employer] flowsheet for review of systems. Physical Exam: [...] neck/chest/throat tightness, dizziness. Pt to otherwise f/u [facility] tomorrow. Pt agreed with plan and questions answered. Assessment: 45yo male chlorine gas exposure Plan: as above Condition on disposition: Stable Patient seen with: [place] [facility] This electronic signature covers the nursing and ancillary testing orders for this visit. Author: Faby Heredia - 05/20/2005 1:52 PM [facility] - 05/20/2005 1:15 PM [facility] Emergency Department Visit Note Patient Name: Millie Norris Date of : 1960 Chief Complaint: Patient presents with: CHEMICAL EXPOSURE--ED - 11/2 hour ago HPI: 45 year old male exposed to chlorine gas at 10:30. Mr Norris states he was at the [employer] working on [employer]. 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 Pt [...] smoker previously. Review of Systems: Please see [employer] flowsheet for review of systems. Physical Exam: [...] asymptomatic. He was seen by the [employer] team member by Dr. Kruger who felt pt could [...] neck/chest/throat tightness, dizziness. Pt to otherwise f/u [facility] tomorrow. Pt agreed with plan and questions answered. Plan: Re-check Vitals Imaging: Plain Radiograph(s): chest Consultation: Toxicology Medication: Albuterol Philosophy Specialist patient/family Re-evaluate patient Check response to treatment Planned Disposition: home Condition on disposition: Stable This electronic signature covers the nursing and ancillary testing orders for this visit. Author: [place] - 05/20/2005 1:15 PM GER DEVELOPMENT Mustapha Patricia Waqas - 05/20/2005 12:57 PM MANAGER DEVELOPMENT BETY AGS EXPOSURE WHILE CLEANING OUT LINES FOR DEMOLITION. C/O OF COUGH AND SOME IRRITAION. LUNGS CLEAR AT THIS TIME. GER DEVELOPMENT Shanthi Stanford - 05/20/2005 12:04 PM MANAGER DEVELOPMENT Chlorine gas GER DEVELOPMENT documented in this encounter Plan of Treatment Not on filedocumented as of this encounter Procedures Procedure Name Priority Date/Time Associated Diagnosis Comme nts CHEST PA/LATERAL Routine 05/20/2005 1:41 PM Resul ts for this MANAGER DEVELOPMENT procedure are i n the results section. documented in this encounter Results CHEST PA/LATERAL (05/20/2005 1:41 PM MANAGER DEVELOPMENT) Component Value Ref Test Analysis Performed At [...] / / Volume Laterality 05/20/2005 1:41 PM MANAGER DEVELOPMENT [facility] MD RAD GENERAL DIAGNOSTIC/RH documented in this encounter Visit Diagnoses Diagnosis Toxic effect of chlorine gas(987.6) Toxic effect of chlorine gas documented in this encounter Care Teams Studio Grip Relationship Specialty Start Date End Date Unassigned, Provider PCP - General 09/19/02 10/29/[address] [place] [id number] documented as of this encounter
--- OUTSIDE RECORDS SUMMARY | 2022-02-25 11:28 | XMS_ITS | Encounter Summary ---
:1960 Author Organization [facility] Address [address] [place] [address] Care Team Providers Name Role Phone Unassigned, Provider Primary Care Provider Unavailable Encounter Details Date Type Department Care Team Description 05/20/2005 Correspondence Emergency Dept Patricia Luciano, RN [facility] D/C PATIENT [address] [facility] ACKNOWLEDGEMENT [place], [place] [facility] [address] [address] [phone] [place] [address] Social History Tobacco Use Types Packs/Day Years Used Date Smoking Tobacco: Never Assessed Sex Assigned at Date Recorded Not on file documented as of this encounter Progress Notes Patricia Luciano - 05/20/2005 12:00 AM COAL EQUIPMENT OPERATOR EQUIPMENT OPERATOR documented in this encounter Plan of Treatment Not on filedocumented as of this encounter Visit Diagnoses Not on filedocumented in this encounter Care Teams Lighting Engineer Relationship Specialty Start Date End Date Unassigned, Provider PCP - General 09/19/02 10/29/18 [address] [place] [address] documented as of this encounter
--- OUTSIDE RECORDS SUMMARY | 2022-02-25 11:28 | XMS_ITS ---
:1960 Author Care Team Providers Name Role Phone HAKEEM CUNNINGHAM MD Primary Care Provider [phone] Allergies Code Code System Name Reaction Severity [...] - COLONOSCOPY THRU S CONNER SPX 06/05/2015 [facility] S[facility] [id number] Rpbic Rad Information not available Notes: 06/05/2015 - LAPARO RADICAL PRO STATECTOMY 05/13/2015 Biopsy of Prostate Information not jona reece Notes: 05/13/2015 - BIOPSY OF PROSTATE [...] Total, BLDV ? PSA, <0.10 <4.0 NG/mL [place] Serum or Total NG/mL Urology - Plasma [place]: [address] [place] [address] Past Encounters 01/14/2021 History of Malignant Neoplasm of Prostat e; Erectile Dysfunction Following Radical Prostatectomy Lele Mendoza, PAC: [address] [facility], u[address] [place] [phone], Ph. Social History Tobacco Smoking Status Light [...]
--- OUTSIDE RECORDS SUMMARY | 2022-02-25 11:28 | XMS_ITS | Clinical Summary ---
:1960 Author Organization [facility] Address [address] [place] [address] Care Team Providers Name Role Phone Unassigned, [...] e / Group Dates [facility] [employer] SELF [id number] 2017-Pre Co mmercial INSURED sent MISC INS WORK MISC INS [id number] 1999-Pre CLAIMS Wor kers Comp COMP WC WORK COMP WC sent DEPT [address] [place] [address] [facility] 2005-Pr [phone] B[address] Workers Comp WC MUTUAL WC esent [phone] [place] [address] AMER[employer] AMERISURE 2018-Pre [phone] [address]OX Workers Comp INSURANCE WC INSURANCE WC sent [id number] [place] [id number] BCBS BCBS CCS [id number] 2018-Pr [address] Com mercial BLUE LINK 01 esent [address] [place] [address] Cash Norris Personal/Famil Self [id number] (Home) [facility] [phone] [place], [place] (Work[place] [phone] CASH NORRIS Comp Self [address] (Home) [place] [address] Cash Norris Workers Comp Self [address] (Home) [place] [address] Care Teams Lean Coach Relationship Specialty Start Date End Date Unassigned, Provider PCP - General Unknown Physician 10/30/[address] [place] [address] [place] [address]
--- NOTE | 2022-02-25 11:30 | CRLHL7_ITS ---
For Patients: As a result of the Century Cures Act, medical imaging exams and procedure reports are released immediately into your electronic medical record. You may view this report before your referring provider. If you have questions, please contact your health care provider. INDICATION: Cough TECHNIQUE: Chest 2 views COMPARISON: 02/01/2022 FINDINGS: Increased right pleural effusion. Right hilar mass again noted with postobstructive volume loss. Diminished patchy parenchymal densities elsewhere. Similar contour of the aorta. No pneumothorax. Osseous structures similar. IMPRESSION: Right hilar mass again noted with postobstructive atelectasis. Increased right pleural effusion. The postobstructive atelectasis appears to have increased. Dictated by Jason Perez MD @ 02/25/2022 12:28:57 PM (Electronically Signed)
== END 2022-02-25 11:19 | disposition home or self-care (01) ==
LOC: RAD 11:21
PROVIDERS: PCP Internal Medicine Medical Oncology; Visit Provider Nurse Practitioner Family
DX: R05.9 Cough, unspecified (principal); R91.8 Other nonspecific abnormal finding of lung field; J90 Pleural effusion, not elsewhere classified; C34.91 Malignant neoplasm of unspecified part of right bronchus or lung
CPT/HCPCS: 71046

== ENCOUNTER 2022-03-02 19:23 | Inpatient (IN) | payer BC, MEDICARE, SELFPAY ==
[2022-03-02] VITALS (12 sets, daily range): BP systolic 103–117; BP diastolic 61–77; PULSE 86–105; RESP 20–22; TEMP 37.1; O2SAT 83–93; BMI 25.8
--- NOTE | 2022-03-02 19:49 | CRLHL7_ITS ---
For Patients: As a result of the Cures Act, medical imaging exams and procedure reports are released immediately into your electronic medical record. You may view this report before your referring provider. If you have questions, please contact your health care provider. INDICATION: Shortness of breath, history of lung cancer. TECHNIQUE: Chest 1 view. COMPARISON: Chest radiograph 02/25/2022. FINDINGS: Slightly increased moderate right pleural effusion. Increased right perihilar patchy consolidation in the region of known mass could represent a superimposed infectious process. Reticular opacities in the upper lungs bilaterally. Probable small left pleural effusion. No pneumothorax. The cardiac silhouette appears enlarged. Tortuous aorta. The bones are unremarkable. IMPRESSION: 1. Slightly increased moderate right pleural effusion. Probable small left pleural effusion. 2. Increased right perihilar patchy consolidation in the region of known mass could represent a superimposed infectious process. 3. Cardiomegaly. Dictated by Alejandra Pedraza MD @ 03/02/2022 9:03:43 PM (Electronically Signed)
--- OUTSIDE RECORDS SUMMARY | 2022-03-02 20:14 | XMS_ITS | Encounter Summary ---
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iop [facility] INTRAMEDULLARY NAILING OF Services [address] RIGHT [address] [place] [address] [place], [place] [phone] (Wo rk) [id number] [phone] Surgery Details Date/Time Status Location OR Service Patient Case Class Case Tr auma Class Type Case? 01/07/22 1:50 Posted [facility] OR Orthopedics Surgery Elective PM Main OR 02 Admit Panel 1 Procedure LRB Anes Op Region Wound Class Commen ts PROPHYLACTIC INTRAMEDULLARY NAILING OF Right Spinal Hip I-Clean RIGHT HIP Surgeon Surgeon Role Service Panel Wayne Humphries MD Primary Orthopedics 1 Jason Guzman PA-C Assisting 1 Case Notes SYNTHES RECON NAIL LOANERS.Jose R Humprheys [place] [phone] Ernestina ChildressAllen [phone] Special Needs C-Arm - Removed C-Arm (conflict) to get scheduled - ok to do per [facility] Social [...] with his oncologist and radiation oncologist through [facility] after discharge. COMPLICATIONS/SIGNIFICANT FINDINGS None DISCHARGE INFORMATION [...] to metastasis (H) Nikky Encinas PA-C/Dr[facility] [phone] Date: 01/08/2022 Time: 9:02 AM documented in [...] daily as needed (90 Base) MCG/ACT inhaler ijauoxc-fscmjdfdwswyn-ed Take 1 tablet by 0 ffeine (EXCEDRIN [...] lower body dressing Lower Body Dressing Assessment/Training [place] Level (Lower Body Dressing) minimum assist (75% [...] CO2 Report completed by: Nikky Encinas PA-C [facility] Date: 01/08/2022 Time: 8:59 AM Michael Mazariegos MD - 01/08/2022 8:57 AM CDT [facility] MEDICINE PROGRESS NOTE Identification/Summary: 61-year-old male with a history of metastatic adenocarcinoma of the lung presents for prophylactic intramedullary nailing of the hip. Doing all right postoperative day #1. Metastatic adenocarcinoma the right lung Status post prophylactic intramedullary nailing Patient will follow up with his oncologist through [facility] Acute blood loss anemia Mild and asymptomatic [...] care was discussed with the Bedside Nurse, Polysomnographic Tech/Graduation Coach and Patient. Michael Mazariegos MD [facility] Phone: #[phone] Interval History/Subjective: Patient feeling good. Eating. Urinating. [...] be read by a radiologist or a [facility] non-radiologist provider. Labs: Most Recent 3 CBC's:Recent [...] Transfers Transfers sit-stand transfer Sit-Stand Transfer Sit-Stand [place] (Transfers) supervision;verbal cues Gait/Stairs (Locomotion) [place] Level (Gait) supervision;verbal cues;nonverbal cues (demo/gesture) Assistive Device (Gait) walker, front-wheeled Distance in Feet (Required for LE Total Joints) 100 Pattern (Gait) 3-point Deviations/Abnormal Patterns (Gait) gait speed decreased Maintains Weight-bearing Status (Gait) able to maintain;nonverbal cues (demo/gesture) to maintain;verbal cues to maintain Negotiation (Stairs) stairs independence;stairs assistive device;handrail location;number of steps;ascending technique;descending technique [place] Level (Stairs) supervision;verbal cues;nonverbal cues (demo/gesture) Handrail Location (Stairs) both sides Number of Steps (Stairs) 4 Ascending Technique (Stairs) zvqe-ou-reec Descending Technique (Stairs) xzph-dv-zlxx Clinical Impression Criteria for Skilled Therapeutic Intervention [...] 5:42 PM CDTAssociated Order(s): HOSPITALIST IP CONSULT [facility] MEDICINE CONSULT NOTE Physician requesting consult: Wayne Humphries MD Reason for consult: Postoperative medical management of medical co-morbidities as below Assessment and Plan Hector Norris is a 61 year old old male with a history of metastatic adenocarcinoma of the right lung presents for prophylactic intramedullary nailing of the right hip due to metastases. [facility] service was asked to evaluate patient for [...] will follow up with his oncologist through [facility] Rheumatoid arthritis Clinically stable Paroxysmal atrial fibrillation [...] Week at does not have with ??? fgimkow-xxwjtyksealjm-zxshdlkx (EXCEDRIN MIGRAINE) 250-250-65 MG tablet Take 1 [...] mouth 3 times daily as needed 01/06/2022 [id number] ??? ipratropium - albuterol 0.5 mg/2.5 mg/3 [...] be read by a radiologist or a [facility] non-radiologist provider. Labs Reviewed Personally By Myself [...] Abnormality Status --------- ------ Adult Type and Screen[[id number]] Final result Please view results for these tests on the individual orders. Adult Type and Screen Result Value Ref Range ABO/RH(D) O POS Antibody Screen Negative Negative SPECIMEN EXPIRATION DATE [id number] XR Surgery MARK Fluoro G/T 5 Min Narrative This exam was marked as non-reportable because it will not be read by a radiologist or a [facility] non-radiologist provider. Preoperative Labs Reviewed Personally By [...] any questions or concerns. Michael Mazariegos MD [facility] Phone: #[phone] documented in this encounter Miscellaneous Notes Plan [...] goal(s). See goals on Care Plan in [facility] electronic health record for goal details. Goals met Therapy recommendation(s): No further therapy is recommended. Plan of Care - Tasha Mensah, PT - 01/08/2022 8:57 AM CDT Physical Therapy Discharge Summary Reason for therapy discharge: Goals met. Progress towards therapy goal(s). See goals on Care Plan in [facility] electronic health record for goal details. [...] Yes Does patient have an identified head girls golf coach: Yes Has goal D/C date and [...] Yes Does patient have an identified head girls golf coach: Yes Has goal D/C date and time been discussed with patient: Yes Continue to monitor VS, labs, pain level, incision site and activity tolerance. Goal Outcome Evaluation: Provider Notification - Wendy Gregg RN - 01/07/2022 1:24 PM CDT Notified Jason JIM, regarding todays labs, WBC elevated from 2 days ago. Will proceed with OR today. Pharmacy-Admission Medication History - Autumn Holm, [facility] - 01/07/2022 12:29 PM CDT Pharmacy Note - Admission Medication History Pertinent Provider Information: n/a Prior To Admission (DATA SERVICES DEVELOPER) med list completed and updated in EMR. DATA SERVICES DEVELOPER Med List Medication Sig Last Dose ??? albuterol (PROAIR HFA/PROVENTIL HFA/VENTOLIN HFA) 108 (90 Base) MCG/ACT inhaler Inhale 2 puffs into the lungs 4 times daily as needed Past Week at does not have with ??? ieaktxy-edlalauoggydd-opoxfsce (EXCEDRIN MIGRAINE) 250-250-65 MG tablet Take 1 [...] mouth 3 times daily as needed 01/06/2022 [id number] ??? ipratropium - albuterol 0.5 mg/2.5 mg/3 [...] Patient was asked about OTC/herbal products specifically. DATA SERVICES DEVELOPER med list reflects this. Based on the pharmacist's assessment, the DATA SERVICES DEVELOPER med list information appears reliable Allergies were reviewed, assessed, and updated with the patient. Patient did not bring any medications to the hospital and can't retrieve from home. No multi-dose medications are available for use during hospital stay. Thank you for the opportunity to participate in the care of this patient. Autumn Holm, AnnabelleD, [facility] 01/07/2022 12:29 PM Op Note - Wayne [...] fascia iliac a block in preop per [facility]. He was appropriately premedicated. Consent obtained risks reviewed. Labswere checked. He was premedicated brought to the operative room undergoing anesthetic induction. Transferred to the [place] table. [place] boot was applied to the right lower [...] in the sagittal plane, using the perfect [place] technique was used to drill the static transverse screw hole. This was measured and filled with the appropriately sized interlocking screw. Then, in likewise fashion using the C-arm in the sagittal plane, using the perfect [place] technique, the dynamic screw slot was predrilled [...] procedure well and was sent to the HI in stable condition. Estimated Blood Loss: Less than 50 cc Specimens: No specimen Drains: No drain Complications: None Wayne Humphries MD Date: 01/07/2022 Time: 3:37 PM Implant Name Type Inv. Item Serial No. Head Tennis Professional Lot No. LRB No. Used Action SYNTHES TITANIUM NAIL RT 12MM X 380MM [employer] [id number] Right 1 Implanted SYNTHES LOCKING SCREW IM NAIL 5 X 38MM SYNTHES [id number] Right 1 Implanted SYNTHES IM LOCKING SCREW 5 X 72MM SYNTHES [id number] Right 1 Implanted SYNTHES LOCKING SCREW IM NAIL 5 X 40MM SYNTHES [id number] Right 1 Implanted SYNTHES LOCKING SCREW IM NAIL 5 X 46MM SYNTHES [id number] Right 1 Implanted Provider Notification - Blaine Castillo APRN WHITE WASHER - 01/06/2022 12:36 PM CDT I am evaluating this patient for upcoming Prophylactic Intramedullary Nailing of Right Hip with Dr. Humphries at [facility] on 01/07/22: - Notified by preop [...] tomorrow. OK to proceed. Blaine Castillo APRN, WHITE WASHER Advanced Practice Nurse Navigator- Orthopedics [facility] Office Direct documented in this encounter [...] Notes SYNTHES RECON NAIL LOANERS.N blayne HAllen [phone] [place] [phone] Ernestina Goodson [phone] Special Needs C-Arm - Removed C-Arm (confl [...] Signature Hemoglobin 10.7 (L) 13.3 - 01/08/2022 [facility] 17.7 g/dL 5:42 AM CDT Specimen Anatomical Collection Method / Collection Time Recei ry Time (Source) Location / Volume Laterality Blood STRUCTURE OF RIGHT Venipuncture / 01/08/2022 5:36 12/24 5:39 UPPER LIMB / Unknown AM CDT AM CDT Unknown Jason Guzman PA-C LAB - BLOOD ORDERABLES Performing Organization Address City/[facility]/ZIP Code Phon e Number [facility] [address] [facility] XR Surgery MARK Fluoro G/T 5 Min (01/07/2022 3:53 PM CDT) Specimen (Source) Anatomical Location Collection Method / Collectio n Time Received Time / Laterality Volume Narrative [facility] - 01/07/2022 3:56 PM CDT This exam was marked as non-reportable because it will not be read by a radiologist or a [facility] non-radiologis t provider. Wayne Humphries MD IMG DIAGNOSTIC IMAGING ORDER DUNG Performing Organization Address City/[facility]/ZIP Code Phon e Number [facility] Adult Type and Screen (01/07/2022 12:13 PM CDT) Patholo gist Method Time Signature ABO/RH(D) O POS 01/07/2022 [facility] 12:15 PM BANK CDT Antibody Negative Negative 01/07/2022 [facility] Screen 12:15 PM BANK CDT SPECIMEN [id number] 01/07/2022 [facility] EXPIRATION 12:15 PM BANK DATE CDT Specimen Anatomical Collection Method / Collection Time Recei ry Time (Source) Location / Volume Laterality Blood BLOOD SPECIMEN / Venipuncture / 01/07/2022 12:13 01/07 Unknown Unknown PM CDT 12:22 PM CDT Jason Guzman PA-C LAB - BLOOD BANK TEST ORDER Performing Organization Address City/[facility]/ZIP Code Phon e Number [facility]ANK [address] [place] [address] (ABNORMAL) Erythrocyte sedimentation rate auto (01/07/2022 12:13 PM CDT) Patholo gist Method Time Signature Erythrocyte 25 (H) 0 - 15 01/07/2022 [facility] Sedimentation Rate mm/hr 1:07 PM CDT Specimen Anatomical Collection Method / Collection Time Recei ry Time (Source) Location / Volume Laterality Blood BLOOD SPECIMEN / Venipuncture / 01/07/2022 12:13 01/07 Unknown Unknown PM CDT 12:22 PM CDT Jason Guzman PA-C LAB - BLOOD ORDERABLES Performing Organization Address City/[facility]/ZIP Code Phon e Number [facility] [address] (ABNORMAL) CRP inflammation (01/07/2022 12:13 PM CDT) P athologist Signature CRP 1.4 (H) 0.0 - <0.8 01/07/2022 [facility] mg/dL 12:38 PM CDT Specimen Anatomical Collection Method / Collection Time Recei ry Time (Source) Location / Volume Laterality Blood BLOOD SPECIMEN / Venipuncture / 01/07/2022 12:13 01/07 Unknown Unknown PM CDT 12:22 PM CDT Jason Guzman PA-C LAB - BLOOD ORDERABLES Performing Organization Address City/[facility]/ZIP Code Phon e Number [facility] [address] INR (01/07/2022 12:13 PM CDT) athologist Signature INR 0.94 0.85 - 1.15 01/07/2022 [facility] 12:36 PM CDT Specimen Anatomical Collection Method / Collection Time Recei ry Time (Source) Location / Volume Laterality Blood BLOOD SPECIMEN / Venipuncture / 01/07/2022 12:13 01/07 Unknown Unknown PM CDT 12:22 PM CDT Jason Guzman PA-C LAB - BLOOD ORDERABLES Performing Organization Address City/[facility] Phon e Number [facility] [address] (ABNORMAL) Creatinine (01/07/2022 12:13 PM CDT) athologist Signature Creatinine 0.69 (L) 0.70 - 01/07/2022 [facility] 1.30 mg/dL 12:38 PM CDT GFR Estimate >90 >60 01/07/2022 [facility] mL/min/1.7 12:38 PM CDT 3m2 Comment: Effective 2021 eGF Rcr in adults is calculated using the 2020 CKD-EPI creatinine equation which includ es age and gender (Megan et al., [place], DOI: 10.1056/CJXSqt8832180) Specimen Anatomical Collection Method / Collection Time Recei ry Time (Source) Location / Volume Laterality Blood BLOOD SPECIMEN / Venipuncture / 01/07/2022 12:13 01/07 Unknown Unknown PM CDT 12:22 PM CDT Jason Guzman PA-C LAB - BLOOD ORDERABLES Performing Organization Address City/[facility] Phon e Number [facility] [address] Potassium (01/07/2022 12:13 PM CDT) athologist Signature Potassium 4.3 3.5 - 5.0 01/07/2022 [facility] mmol/L 12:38 PM CDT Specimen Anatomical Collection Method / Collection Time Recei ry Time (Source) Location / Volume Laterality Blood BLOOD SPECIMEN / Venipuncture / 01/07/2022 12:13 01/07 Unknown Unknown PM CDT 12:22 PM CDT Jason Guzman PA-C LAB - BLOOD ORDERABLES Performing Organization Address City/State/ZIP Code Phon e Number [facility] [address] (ABNORMAL) CBC with platelets (01/07/2022 12:13 PM CDT) [facility] gist Method Time Signature WBC Count 13.2 (H) 4.0 - 11.0 01/07/2022 [facility] 10e3/uL 12:26 PM CDT RBC Count 4.02 (L) 4.40 - 01/07/2022 [facility] 5.90 12:26 PM CDT 10e6/uL Hemoglobin 12.0 (L) 13.3 - 01/07/2022 [facility] 17.7 g/dL 12:26 PM CDT Hematocrit 36.0 (L) 40.0 - 01/07/2022 [facility] 53.0 % 12:26 PM CDT MCV 90 78 - 100 01/07/2022 [facility] fL 12:26 PM CDT MCH 29.9 26.5 - 01/07/2022 [facility] 33.0 pg 12:26 PM CDT MCHC 33.3 31.5 - 01/07/2022 [facility] 36.5 g/dL 12:26 PM CDT RDW 15.2 (H) 10.0 - 01/07/2022 [facility] 15.0 % 12:26 PM CDT Platelet Count 417 150 - 450 01/07/2022 [facility] 10e3/uL 12:26 PM CDT Specimen Anatomical Collection Method / Collection Time Recei ry Time (Source) Location / Volume Laterality Blood BLOOD SPECIMEN / Venipuncture / 01/07/2022 12:13 01/07 Unknown Unknown PM CDT 12:22 PM CDT Jason Guzman PA-C LAB - BLOOD ORDERABLES Performing Organization Address City/State/ZIP Code Phon e Number [facility] [address] POC US Guidance Needle [...] analgesic side effects. Hold while on IV LOBSTER FISHERMAN or with regular IV opioid dosing. Given [...] esic side effects. Hold while on IV LOBSTER [place]ER[place] or with regular IV opioid dosing. pantoprazole [...] 1400 (Given - Provider: Vandana Padilla APRN CARBONATOR) Routine, 2 g, Intravenous, PRE-OP/PRE-HI OCEDURE, Starting on Komal 01/07/22 at 1203, [...] e Adjustment - Provider: Vandana Padilla APRN CARBONATOR) lactated ringers infusion 1718 (Restarte d - [...] sic side effects. Hold while on IV LOBSTER [place]ER[place] or with regular IV opioid dosing. oxyCODONE [...] analgesic side effects. Hold while on IV LOBSTER [place]ER[place] or with regular IV opioid dosing. sodium [...] after each naloxone dose. Consider transfer to [facility] if patient respiratory parameters hav e [...] side effects. Ho ld while on IV LOBSTER [place]ER[place] or with regular IV opioid dosing.
Or oxyCODONE (ROXICODONE) tablet 10 mgJump to med 10 mg, Oral, EVERY 4 HOURS PRN, severe p ain, (pain rating 7-10), Starting on [place] 01/07/22 at 1701
Hold oral PRN dose for analgesic side effects. Notify provider to assess for uncontrolled pain o r analgesic side effects. Hold whi le on IV LOBSTER [place]ER[place] or with regular IV opioid dosing.
documented in this encounter Care Teams Professor Of Biology Relationship Specialty Start Date End Date Tin Hernandez PCP - General Family Medicine 01/06/[address] [place] [address] documented as of this encounter
--- OUTSIDE RECORDS SUMMARY | 2022-03-02 20:14 | XMS_ITS | Encounter Summary ---
:1960 Author Organization [facility] Address [address] [place] [address] Care Team Providers Name Role Phone Tin Hernandez Primary Care Provider Encounter Details Date Type Department Care Team Description 01/07/2022 Ancillary Procedure M [facility] Ultrasound [facility] [address] [place], [place] [phone] (Wo rk) [phone] Social History Tobacco Use [...] on filedocumented in this encounter Care Teams Independent Beauty Consultant Relationship Specialty Start Date End Date Tin Hernandez PCP - General Family Medicine 01/06/22 [address] [place] [address] documented as of this encounter
--- OUTSIDE RECORDS SUMMARY | 2022-03-02 20:14 | XMS_ITS | Clinical Summary ---
:1960 Author Organization [place] Address [address] [place] [id number] Care Team Providers Name Role Phone Tin [...] this topic Medical Devices Implanted Type Area Loan Workout Officer Device Identifier Shelf Model / Expiration Serial / Date Lot Synthes Locking Screw Im Nail 5 X 46mm Metallic Right: SYNTHES [id number] 08/23/2031 [id number] / Implanted: Qty: 1 on 01/07/2022 by Wayne Humphries MD at [facility] Hardware/Anc Hip / hor [id number] Procedures Procedure Name Priority Date/Time Associated Comments [...] Notes SYNTHES RECON NAIL LOANERS.N blayne H. [phone] John Wells [phone] Ernestina Goodson [phone] Special Needs C-Arm - Removed C-Arm (confl [...] of2 resultswithin the time period is included. [facility] Method Time Signature Sodium 135 (L) 136 - 145 02/08/2022 [facility] mmol/L 7:45 AM CDT Potassium 3.9 3.5 - 5.0 02/08/2022 [facility] mmol/L 7:45 AM CDT Chloride 102 98 - 107 02/08/2022 [facility] mmol/L 7:45 AM CDT Carbon Dioxide 22 22 - 31 02/08/2022 [facility] (CO2) mmol/L 7:45 AM CDT Anion Gap 11 5 - 18 02/08/2022 [facility] mmol/L 7:45 AM CDT Urea Nitrogen 17 8 - 22 02/08/2022 [facility] mg/dL 7:45 AM CDT Creatinine 0.60 (L) 0.70 - 02/08/2022 [facility] 1.30 7:45 AM CDT mg/dL Calcium 9.5 8.5 - 02/08/2022 [facility] 10.5 7:45 AM CDT mg/dL Glucose 107 70 - 125 02/08/2022 [facility] mg/dL 7:45 AM CDT Alkaline 106 45 - 120 02/08/2022 [facility] Phosphatase U/L 7:45 AM CDT AST 14 0 - 40 02/08/2022 [facility] U/L 7:45 AM CDT ALT 19 0 - 45 02/08/2022 [facility] U/L 7:45 AM CDT Protein Total 5.7 (L) 6.0 - 8.0 02/08/2022 [facility] g/dL 7:45 AM CDT Albumin 2.0 (L) 3.5 - 5.0 02/08/2022 [facility] g/dL 7:45 AM CDT Bilirubin Total 0.3 0.0 - 1.0 02/08/2022 [facility] mg/dL 7:45 AM CDT GFR Estimate >90 >60 02/08/2022 [facility] mL/min/1. 7:45 AM CDT 73m2 Comment: Effective 2021 eGF Rcr in adults is calculated using the 2020 CKD-EPI creatinine equation which includ es age and gender (Megan et al., NEJM, DOI: 10.1056/NZFNwm1299445) Specimen Anatomical Collection Method / Collection Time Recei ry Time (Source) Location / Volume Laterality Blood STRUCTURE OF LEFT Venipuncture / 02/08/2022 6:23 02/08 7:15 HAND / Unknown Unknown AM CDT AM CDT [place] DO LAB - BLOOD ORDERABLES Performing Organization Address City/State/ZIP Code Phon e Number [facility] [place] [address] [address] (ABNORMAL) CBC with platelets (02/08/2022 6:23 AM CDT)Only the most recent of2 resultswithin the time period is included. [facility] gist Method Time Signature WBC Count 3.5 (L) 4.0 - 11.0 02/08/2022 [facility] 10e3/uL 7:19 AM CDT RBC Count 3.39 (L) 4.40 - 02/08/2022 [facility] 5.90 7:19 AM CDT 10e6/uL Hemoglobin 9.8 (L) 13.3 - 02/08/2022 [facility] 17.7 g/dL 7:19 AM CDT Hematocrit 30.7 (L) 40.0 - 02/08/2022 [facility] 53.0 % 7:19 AM CDT MCV 91 78 - 100 02/08/2022 [facility] fL 7:19 AM CDT MCH 28.9 26.5 - 02/08/2022 [facility] 33.0 pg 7:19 AM CDT MCHC 31.9 31.5 - 02/08/2022 [facility] 36.5 g/dL 7:19 AM CDT RDW 14.7 10.0 - 02/08/2022 [facility] 15.0 % 7:19 AM CDT Platelet Count 241 150 - 450 02/08/2022 [facility] 10e3/uL 7:19 AM CDT Specimen Anatomical Collection Method / Collection Time Recei ry Time (Source) Location / Volume Laterality Blood STRUCTURE OF LEFT Venipuncture / 02/08/2022 6:23 02/08 7:15 HAND / Unknown Unknown AM CDT AM CDT [place] DO LAB - BLOOD ORDERABLES Performing Organization Address City/State/ZIP Code Phon e Number [facility] [place] [address] [place] [address] ECHO COMPLETE WITH CONTRAST (02/07/2022 2:39 PM CDT) athologist Signature LVEF 55-60% CARDIOLOGY RESULTS Anatomical Region Laterality Modality Ultrasound Specimen (Source) Anatomical Collection Method Collection Time Re ceived Time Location / / Volume Laterality 02/07/2022 1:33 PM CDT Narrative 02/08/2022 8:39 AM CDT [id number]^OREN^[place] [address] Name: CASH TINOCO : 1960 Study Date: 02/07/2022 01:33 PM Age: 61 yrs Gender: Male Patient Location: [facility] Reason For Study: Chest Pain Ordering Physician: STEPH LOTT Performed By: PILY BSA: 1.8 m2 Height: 65 in Weight: 165 lb HR: 80 Procedure Complete Echo Adult. Definity ([facility] #[id number]) given intravenously. Interpretation Summary Left ventricular size, [...] Procedure Note Ele Slade MD - 02/08/2022 [id number]^OREN^[place] [address] Name: CASH TINOCO : 1960 Study Date: 02/07/2022 01:33 PM Age: 61 yrs Gender: Male Patient Location: [facility] Reason For Study: Chest Pain Ordering Physician: STEPH LOTT Performed By: PILY BSA: 1.8 m2 Height: 65 in Weight: 165 lb HR: 80 Procedure Complete Echo Adult. Definity ([facility] #[id number]) given intravenously. Interpretation Summary Left [...] Signature SARS CoV2 PCR Negative Negative 02/07/2022 [facility] 10:19 AM CDT Comment: NEGATIVE: SARS-CoV-2 (COVID-19) RNA not detected, presumed negative. Specimen Anatomical Collection Method Collection Time Receive d Time (Source) Location / / Volume Laterality Swab NASAL STRUCTURE / Non-blood 02/07/2022 9:26 AM 01/23 9:31 Unknown Collection / CDT AM CDT Unknown Narrative [facility] - 02/07/2022 10:19 AM CDT Testing was performed using the Xpert Xpress SARS-CoV-2 Assay on the [employer]. A dditional information about this [...] COVID-19. This test was validated by the [facility]. This laboratory is certified under the Clinical Laboratory Improvement Amendments of 1988 (CLIA-88) as qualified to perform high complexity laboratory testing. Steph Lott MD LAB - MICRO GENERAL ORDERABL ES Performing Organization Address City/State/ZIP Code Phon e Number [facility] [address] [facility] Rocky Hassan (ABNORMAL) Respiratory Panel PCR (02/07/2022 9:26 AM CDT) [facility] Method Time Signature Adenovirus Not Detected Not [...] ap proval for the testing of nasopharyngeal (PUBLIC POLICY MEDIATOR) swabs only. The Infectious Diseases Diag nostic Laboratory at [facility] has validated the performance characteristic s for [...] Code Phon e Number [facility] [place] [address] Diag. Lab [address] [facility], Room [address] (ABNORMAL) Respiratory Aerobic Bacterial Culture [...] Code Phon e Number [facility] [place] [address] Diag. Lab [address] [facility], Room D297 CT Abdomen Pelvis w Contrast [...] CT CHEST PULMONARY EMBOLISM W CONTRAST [facility] DATE/TIME: 02/07/2022 12:22 AM INDICATION: Right [...] ng 2.9 cm which destroys the left aerial photograph interpreter ior 12th rib was not included in the [id number]-rm-[id number] o n 11/17/2021 but is new from [...] C HEST PULMONARY EMBOLISM W CONTRAST LOCATION: [facility] DATE/TIME: 02/07/2022 12:22 AM INDICATION: Right [...] 12th rib was not included in the pvwjb-gv-debi o n 11/17/2021 but is new from [...] is probably a metastasis. Burke Morelos MD [facility] CT ORDERABLES CT Chest Pulmonary Embolism w [...] CT CHEST PULMONARY EMBOLISM W CONTRAST LOCATION: [facility] DATE/TIME: 02/07/2022 12:22 AM INDICATION: Right [...] ng 2.9 cm which destroys the left aerial photograph interpreter ior 12th rib was not included in the lqalh-ub-vuwd o n 11/17/2021 but is new from [...] C HEST PULMONARY EMBOLISM W CONTRAST LOCATION: [facility] DATE/TIME: 02/07/2022 12:22 [...] 12th rib was not included in the lkmfx-yt-[id number] o n 11/17/2021 but is new from [...] is probably a metastasis. Burke Morelos MD [facility] CT ORDERABLES B-Type Natriuretic Peptide ([facility] Only) (02/06/2022 11:03 PM CDT) athologist Signature BNP 33 0 - 53 02/07/2022 [facility] pg/mL 2:47 AM CDT Specimen Anatomical Collection Method / Collection Time Recei ry Time (Source) Location / Volume Laterality Blood STRUCTURE OF RIGHT Venipuncture / 02/06/2022 11:03 UPPER LIMB / Unknown PM CDT 11:08 PM CDT Unknown [place] DO LAB - BLOOD ORDERABLES Performing Organization Address City/State/ZIP Code Phon e Number [facility] [address] [facility] Rocky Hassan (ABNORMAL) CBC with platelets and differential (02/06/2022 11:03 PM CDT) Patholo gist Method Time Signature WBC Count 5.7 4.0 - 11.0 02/07/2022 [facility] 10e3/uL 12:04 AM CDT RBC Count 3.63 (L) 4.40 - 02/07/2022 [facility] 5.90 12:04 AM CDT 10e6/uL Hemoglobin 10.7 (L) 13.3 - 02/07/2022 [facility] 17.7 g/dL 12:04 AM CDT Hematocrit 32.9 (L) 40.0 - 02/07/2022 [facility] 53.0 % 12:04 AM CDT MCV 91 78 - 100 02/07/2022 [facility] fL 12:04 AM CDT MCH 29.5 26.5 - 02/07/2022 [facility] 33.0 pg 12:04 AM CDT MCHC 32.5 31.5 - 02/07/2022 [facility] 36.5 g/dL 12:04 AM CDT RDW 14.6 10.0 - 02/07/2022 [facility] 15.0 % 12:04 AM CDT Platelet Count 213 150 - 450 02/07/2022 [facility] 10e3/uL 12:04 AM CDT Specimen Anatomical Collection Method / Collection Time Recei ry Time (Source) Location / Volume Laterality Blood STRUCTURE OF RIGHT Venipuncture / 02/06/2022 11:03 UPPER LIMB / Unknown PM CDT 11:08 PM CDT Unknown Burke Morelos MD LAB - BLOOD ORDERABLES Performing Organization Address City/State/ZIP Code Phon e Number [facility] [place] [address] [facility] [address] Troponin I (02/06/2022 11:03 PM CDT) P athologist Signature Troponin I 0.02 0.00 - 0.29 02/06/2022 [facility] ng/mL 11:38 PM CDT Specimen Anatomical Collection Method / Collection Time Recei ry Time (Source) Location / Volume Laterality Blood STRUCTURE OF RIGHT Venipuncture / 02/06/2022 11:03 UPPER LIMB / Unknown PM CDT 11:08 PM CDT Unknown Burke Morelos MD LAB - BLOOD ORDERABLES Performing Organization Address City/[facility]/ZIP [place] [address] INR (02/06/2022 11:03 PM CDT)Only the most recent of2 resultswithin the time period is included. P athologist Signature INR 1.10 0.85 - 1.15 02/06/2022 [facility] 11:19 PM CDT Specimen Anatomical Collection Method / Collection Time Recei ry Time (Source) Location / Volume Laterality Blood STRUCTURE OF RIGHT Venipuncture / 02/06/2022 11:03 UPPER LIMB / Unknown PM CDT 11:08 PM CDT Unknown Burke Morelos MD LAB - BLOOD ORDERABLES Performing Organization Address City/[facility]/ZIP [place] [address] Lactic acid whole blood (02/06/2022 11:03 PM CDT) athologist Signature Lactic Acid 0.9 0.7 - 2.0 02/06/2022 [facility] mmol/L 11:17 PM CDT Specimen Anatomical Collection Method / Collection Time Recei ry Time (Source) Location / Volume Laterality Blood STRUCTURE OF RIGHT Venipuncture / 02/06/2022 11:03 UPPER LIMB / Unknown PM CDT 11:08 PM CDT Unknown Burke Morelos MD LAB - BLOOD ORDERABLES Performing Organization Address City/[facility]/ZIP [place] [address] (ABNORMAL) Manual Differential (02/06/2022 11:03 PM CDT) [facility] gist Method Time Signature % Neutrophils 85 % 02/07/2022 [facility] 12:04 AM LABORATORY CDT % Lymphocytes 7 % 02/07/2022 [facility] 12:04 AM LABORATORY CDT % Monocytes 8 % 02/07/2022 [facility] 12:04 AM LABORATORY CDT % Eosinophils 0 % 02/07/2022 [facility] 12:04 AM LABORATORY CDT % Basophils 0 % 02/07/2022 [facility] 12:04 AM LABORATORY CDT Absolute 4.8 1.6 - 8.3 02/07/2022 [facility] Neutrophils 10e3/uL 12:04 AM LABORATORY CDT Absolute 0.4 (L) 0.8 - 5.3 02/07/2022 [facility] Lymphocytes 10e3/uL 12:04 AM LABORATORY CDT Absolute 0.5 0.0 - 1.3 02/07/2022 [facility] Monocytes 10e3/uL 12:04 AM LABORATORY CDT Absolute 0.0 0.0 - 0.7 02/07/2022 [facility] Eosinophils 10e3/uL 12:04 AM LABORATORY CDT Absolute 0.0 0.0 - 0.2 02/07/2022 [facility] Basophils 10e3/uL 12:04 AM LABORATORY CDT RBC Morphology Confirmed RBC 02/07/2022 [facility] Indices 12:04 AM LABORATORY CDT Platelet Automated Automated 02/07/2022 [facility] Assessment Count Count 12:04 AM LABORATORY [...] Organization Address City/State/ZIP Code Phon e Number [facility] [place] [address] [facility] [address] (ABNORMAL) CRP inflammation (02/06/2022 11:03 PM CDT)Only the most recent of2 resultswithin the time period is included. P athologist Signature CRP 29.2 (H) 0.0 - <0.8 02/06/2022 [facility] mg/dL 11:28 PM CDT Specimen Anatomical Collection Method / Collection Time Recei ry Time (Source) Location / Volume Laterality Blood STRUCTURE OF RIGHT Venipuncture / 02/06/2022 11:03 UPPER LIMB / Unknown PM CDT 11:08 PM CDT Unknown Burke Morelos MD LAB - BLOOD ORDERABLES Performing Organization Address [facility]/ZIP Code Phon e Number [facility] [place] [address] [place] Hassan (ABNORMAL) Hemoglobin (01/08/2022 5:36 AM CDT) athologist Signature Hemoglobin 10.7 (L) 13.3 - 01/08/2022 [facility] 17.7 g/dL 5:42 AM CDT Specimen Anatomical Collection Method / Collection Time Recei ry Time (Source) Location / Volume Laterality Blood STRUCTURE OF RIGHT Venipuncture / 01/08/2022 5:36 12/24 5:39 UPPER LIMB / Unknown AM CDT AM CDT Unknown Jason Suero PA-C LAB - BLOOD ORDERABLES Performing Organization Address [facility]/ZIP [facility] Phon e Number [facility] [place] [address] [facility] Gibsontrace Hassan XR Surgery MARK Fluoro G/T 5 Min (01/07/2022 3:53 PM CDT) Specimen (Source) Anatomical Location Collection Method / Collectio n Time Received Time / Laterality Volume Narrative [facility] - 01/07/2022 3:56 PM CDT This exam was marked as non-reportable because it will not be read by a radiologist or a [facility] non-radiologis t provider. Wayne Humphries MD IMG DIAGNOSTIC IMAGING ORDER DUNG Performing Organization Address [facility] Phon e Number [facility] Spinal Block [...] Administration Time: 2:05 PM Coleman Oneill MD [place] ANESTHESIA Adult Type and Screen (01/07/2022 12:13 PM CDT) [facility] Time Signature ABO/RH(D) O POS 01/07/2022 [facility] BLOOD 12:15 PM BANK CDT Antibody Negative Negative 01/07/2022 [facility] B[facility] Screen 12:15 PM BANK CDT SPECIMEN [id number] 01/07/2022 [facility] EXPIRATION 12:15 PM BANK DATE CDT Specimen Anatomical Collection Method / Collection Time Recei ry Time (Source) Location / Volume Laterality Blood BLOOD SPECIMEN / Venipuncture / 01/07/2022 12:13 01/07 Unknown Unknown PM CDT 12:22 PM CDT Jason Suero PA-C LAB - BLOOD BANK TEST ORDER Performing Organization Address City/State/ZIP Code Phon e Number [facility]ANK [address] [place] [address] Potassium (01/07/2022 12:13 PM CDT) P athologist Signature Potassium 4.3 3.5 - 5.0 01/07/2022 [facility] mmol/L 12:38 PM CDT Specimen Anatomical Collection Method / Collection Time Recei ry Time (Source) Location / Volume Laterality Blood BLOOD SPECIMEN / Venipuncture / 01/07/2022 12:13 01/07 Unknown Unknown PM CDT 12:22 PM CDT Jason Suero PA-C LAB - BLOOD ORDERABLES Performing Organization Address City/[facility]/ZIP Code Phon e Number [facility] [place] [address] (ABNORMAL) Erythrocyte sedimentation rate auto (01/07/2022 12:13 PM CDT) Patholo gist Method Time Signature Erythrocyte 25 (H) 0 - 15 01/07/2022 [facility] Sedimentation Rate mm/hr 1:07 PM CDT Specimen Anatomical Collection Method / Collection Time Recei ry Time (Source) Location / Volume Laterality Blood BLOOD SPECIMEN / Venipuncture / 01/07/2022 12:13 01/07 Unknown Unknown PM CDT 12:22 PM CDT Jason Suero PA-C LAB - BLOOD ORDERABLES Performing Organization Address City/[facility]/ZIP Code Phon e Number [facility] [place] [address] (ABNORMAL) Creatinine (01/07/2022 12:13 PM CDT) P athologist Signature Creatinine 0.69 (L) 0.70 - 01/07/2022 [facility] 1.30 mg/dL 12:38 PM CDT GFR Estimate >90 >60 01/07/2022 [facility] mL/min/1.7 12:38 PM CDT 3m2 Comment: Effective 2021 eGF Rcr in adults is calculated using the 2020 CKD-EPI creatinine equation which includ es age and gender (Megan et al., NEJM, DOI: 10.1056/XJKKsv8709716) Specimen Anatomical Collection Method / Collection Time Recei ry Time (Source) Location / Volume Laterality Blood BLOOD SPECIMEN / Venipuncture / 01/07/2022 12:13 01/07 Unknown Unknown PM CDT 12:22 PM CDT Jason Suero PA-C LAB - BLOOD ORDERABLES Performing Organization Address City/State/ZIP Code Phon e Number [facility] [place] [address] [place] POC US Guidance Needle [...] Address T ype Group Dates MEDICARE MEDICARE [id number] 2021-Prese [phone] ATTN CLAI MS Medicare nt 40 [address] [facility] [place] [address] BC[place] [id number] 2021-Prese [phone] [address] [address] [address] nt [address] [place] [address] Advance Directives For more information, please contact: [phone] Latest Code Status on File Code Status [...] 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
--- OUTSIDE RECORDS SUMMARY | 2022-03-02 20:14 | XMS_ITS | Encounter Summary ---
:1960 Author Organization [facility] Address [address] [place] [address] Care Team Providers Name Role Phone Hakeem [...] (H) Acute respiratory failure with hypoxia (H) [address] Malignant neoplasm of lung, unspecified laterality, unspecified part of lung (H) SIRS (systemic inflammatory response syndrome) (H) [address] [place], [place] [address] Phone: Fax: Referral ID Status Reason Start Date Expiration Date Visits Requ ested Visits Authorized [id number] 1 1 Encounter Details Date Type Department Care Team Description 02/06/2022 - [facility] Burke Morelos MD [address] [place], [place] [id number] Acute respiratory failure with hypoxia ( H); 02/08/2022 Encounter [facility] Gomez Leong MD [address] [place], [place] [id number] Malignant neoplasm of lung, unspecified laterality, unspecified part of lung (H); [place] [address] [place] Los Del Real DO [address] [facility] [address] [place] [id number] SIRS (systemic inflammatory response syn drome) (H) [address] [facility] Steph Lott MD [address] [place], [place] [id number] [place] [address] Social History Tobacco Use Types [...] Lott MD - 02/08/2022 2:21 PM CDT [facility] Hospitalist Discharge Summary Date of Admission: 02/06/2022 [...] Metastatic lung cancer Getting chemotherapy, radiation at [facility] Having some slight diarrhea from chemotherapy Monitor for excessive watery stools Discussed that patient could meet with palliative care within the [facility] system for ongoing symptom management and goals [...] 30 minutes dischargingthis patient. Steph Lott MD [address] [address] Physical Exam Vital Signs: Weight: 165 lbs [...] lungs 4 times daily as needed, Historical pcdjhwo-zzckbowommelx-corrtbrz (EXCEDRIN MIGRAINE) 250-250-65 MG tablet Take 1 [...] encounter Discharge Instructions Discharge InstructionsAva Diamond APRN BOTTLE LABELER - 02/08/2022 1:33 PM CDT Pain Team Instructions - You were prescribed Oxycodone for pain. - Acetaminophen (Tylenol) may be used as needed for pain. Do not exceed more than 3000 mg of Tylenolper day in a 24 hour period. Many prescription pain medications contain Tylenol?? (acetaminophen), including Vicodin??, Tylenol #3??, [place]??, Lortab??, and Percocet??. You should not take [...] of any unused medications in your home. Mmip-syf-gqrollw medications and prescription drugs can pollute yin and be harmful to humans, fish, and other wildlife when disposed of improperly -- do not flush medications down the toilet or place in the trash. Properly disposing of medicines is important to prevent abuse or poisoning and protect the environment. Prescription and lftu-rcw-flogfaa medications are collected anonymously from residents for free at [facility] drop-off locations usually located at your local [...] (90 daily as needed Base) MCG/ACT inhaler mlpxnlz-gwzivpkyssilu-jjr Take 1 tablet by 0 feine (EXCEDRIN [...] of this encounter Progress Notes Leida Finn, BUILDING CONSTRUCTION SUPERVISOR - 02/08/2022 1:35 PM CDT Palliative Care [...] afternoon. No follow up necessary. Megan Finn BUILDING CONSTRUCTION SUPERVISOR Palliative Care Office # [phone] Rosette Balderas RN - 02/08/2022 1:35 PM [...] Metastatic lung cancer Getting chemotherapy, radiation at [facility] Having some slight diarrhea from chemotherapy Monitor [...] Real DO - 02/07/2022 1:47 AM CDT [facility] ADMISSION HISTORY AND PHYSICAL Assessment & [...] Metastatic lung cancer Getting chemotherapy, radiation at [facility] Having some slight diarrhea from chemotherapy Monitor [...] RIGHT HIP; Surgeon: Wayne Humphries MD; Location: [facility] Main OR Family History No family history [...] the lungs 4 times daily as needed vzrciqf-arslgrwlgqklg-aekvfask (EXCEDRIN MIGRAINE) 250-250-65 MG tablet Yes No [...] CT CHEST PULMONARY EMBOLISM W CONTRAST LOCATION: [facility] DATE/TIME: 02/07/2022 12:22 AM INDICATION: Right [...] 12th rib was not included in the ukvrx-tf-zpzz on 11/17/2021 but is new from PET/CT [...] CT CHEST PULMONARY EMBOLISM W CONTRAST LOCATION: [facility] DATE/TIME: 02/07/2022 12:22 AM INDICATION: Right [...] 12th rib was not included in the qmpln-yc-odpl on 11/17/2021 but is new from PET/CT [...] Care Planning Los Del Real DO Hospitalist [facility] Phone: #[phone] documented in this encounter Consult Notes Ava Diamond APRN BOTTLE LABELER - 02/08/2022 11:40 AM CDT [facility] ACUTE PAIN SERVICE CONSULTATION Date of Admission: [...] -Opioid prescriber has been Charan Burgos -JACQUELINE SAND SCREENER OPERATOR pulled from system on 02/08. This indicates [...] 6-9/10 and goal is 2-4/10. Per [place] SAND SCREENER OPERATOR review, the patient does have an opioid [...] RIGHT HIP; Surgeon: Wayne Humphries MD; Location: [facility] Main OR FAMILY HISTORY: No family history [...] by mouth 2 times daily 02/06/2022 ??? nvgazto-tmiyiykcffzqi-upigtjof (EXCEDRIN MIGRAINE) 250-250-65 MG tablet Take 1 [...] patient's chart. Echocardiogram Complete Result Date: 02/07/2022 [id number]^OREN^[place] [address] Name: CASH TINOCO : 1960 Study Date: 02/07/2022 01:33 PM Age:61 yrs Gender: Male Patient Location: [facility] Reason For Study: Chest Pain Ordering Physician: STEPH LOTT Performed By: PILY BSA: 1.8 m2 Height: 65 in Weight: 165 lb HR: 80 Procedure Complete Echo Adult. Definity ([facility]NOTE 3[facility] #[id number]) given intravenously. Interpretation Summary Left ventricular size, [...] CT CHEST PULMONARY EMBOLISM W CONTRAST LOCATION: [facility] DATE/TIME: 02/07/2022 12:22 AM INDICATION: Right [...] 12th rib was not included in the cxsyo-fa-hjgk on 11/17/2021 but is new from PET/CT [...] CT CHEST PULMONARY EMBOLISM W CONTRAST LOCATION: [facility] DATE/TIME: 02/07/2022 12:22 AM INDICATION: Right [...] 12th rib was not included in the zrasv-tm-kpeq on 11/17/2021 but is new from PET/CT [...] you for this consultation. Ava Diamond APRN, MECHANICAL EQUIPMENT TEST ENGINEER-C Acute Care Pain Management Program [facility] (Nitish Hidalgo Johns) Tuesday-Tuesday 8a-4p Page via online [employer] system or call [phone] Adriana Shaw CNS - 02/08/2022 8:30 AM CDTAssociated Order(s): PALLIATIVE CARE ADULT IP CONSULT [facility] Palliative Care Consultation Note Patient: Cash Tinoco [...] - Continue current cares and treatment with [facility]. - Discussed that patient could meet with palliative care within the [facility] system for ongoing symptom management and goals [...] directly at the Palliative Care Main Line [phone] ?? After regular work hours and on weekends/holidays, you can leave a message at [phone] History of Present Illness: History gathered today from: patient, medical chart, outside records including Care Everywhere Cash Tinoco is a 61 year old male admitted to [facility] on 02/06/2022 with c/o right flank and rib pain. Patient has H metastatic lung cancer and undergoing Chemotherapy with carboplatin and Keytruda through [facility] in [place] patient is status post radiation treatment to [...] inpatient room with patient and Armin Burdick [facility] palliative care. Reviewed Palliative Care is specialized [...] RIGHT HIP; Surgeon: Wayne Humphries MD; Location: [facility] Main OR Family History: No family history [...] 12th rib was not included in the vatbr-wd-prbs on 11/17/2021 but is new from PET/CT [...] CT CHEST PULMONARY EMBOLISM W CONTRAST [facility]ATION: [facility] DATE/TIME: 02/07/2022 12:22 AM INDICATION: Right [...] 12th rib was not included in the tnfsi-rz-vhjh on 11/17/2021 but is new from PET/CT [...] development of plan of care as noted aboveAllen Shaw APRN, [facility] Palliative Care [phone] YT Ruth Burciaga APRN CNS - 02/07/2022 3:22 PM CDTAssociated Order(s): PAIN MANAGEMENT ADULT IP CONSULT Will not see today: PAIN MANAGEMENT SERVICE CHART CHECK This patient's chart has been reviewed by the Pain Service. Reviewed pain medications currently available for patient and discussed with RN. Patient's pain at this time appears to be under good controlwill not make any changes and plan to see patient in AM for full Consult. Thank you! Ruth Burciaga APRN, MALVIN-BC, DNP Acute Care Pain Management Program [facility] (Nitish JENSEN JNs) With questions call [phone] Preference if for [employer] Paging - Gualberto Click HERE to page Kay Shae Gutiérrez RN - 02/07/2022 11:59 AM CDTAssociated Order(s): [...] Communication Assessment Patient's communication style: spoken language ([place] Islander or Bilingual) Cognitive Cognitive/Neuro/Behavioral: WDL Living Environment: [...] discharge plan pending progression and recommendations. Shae Knight, RN documented in this encounter ED Notes [...] metastasis. Echocardiogram Complete (Results Pending) Gomez Leong DO [facility] EMERGENCY ROOM [address] [facility] [address] Gomez Leong MD 02/08/22 0359 Laly Talley RN - 02/06/2022 10:15 PM CDT Patient reports right sided pain, patient unable to localize pain to a specific spot but appears to be pointing to the right flank/rib area Reports pain started this morning after coughing and describes as sharp Denies N/V/ symptoms Took 5mg oxycodone [address] SUPERVISOR with no relief Hx stage IV lung cancer with metastasis and is currently going through chemo Triage Assessment Row Name 02/06/22 8630 Triage Assessment (Adult) Airway WDL WDL Respiratory [...] BOLUS (1,000 mLs Intravenous New Bag 02/06/22 9292) Followed by sodium chloride 0.9% infusion (has no administration in time range) morphine (PF) injection 4 mg (has no administration in time range) iopamidol (ISOVUE-370) solution 100 mL (has no administration in time range) acetaminophen (TYLENOL) tablet 650 mg (650 mg Oral Given 02/06/22 3329) Final Impression 1. Acute respiratory failure with [...] N/V/ symptoms Took 5mg oxycodone [address] SUPERVISOR with no relief Hx stage IV lung cancer with metastasis and is currently going through chemo Triage Assessment Row Name 02/06/22 2814 Triage Assessment (Adult) Airway WDL WDL Respiratory [...] observation and the provider's statements to me. I, Burke Morelos M.D attest that Noah Arpita is acting in a scribe capacity, has observed my performance of the services and has documented them in accordance with my direction. Past Medical History Past Medical History: Diagnosis Date ??? Cancer (H) Past Surgical History: Procedure Laterality Date ??? OPEN REDUCTION INTERNAL FIXATION HIP NAILING Right 01/07/2022 Procedure: PROPHYLACTIC INTRAMEDULLARY NAILING OF RIGHT HIP; Surgeon: Wayne Humphries MD; Location: [facility] Main OR No family history on file. [...] HFA/VENTOLIN HFA) 108 (90 Base) MCG/ACT inhaler nsaryxm-vjrjhkrofqktn-dekzclsw (EXCEDRIN MIGRAINE) 250-250-65 MG tablet celecoxib (CELEBREX) [...] is normal. Burke Morelos MD Emergency Medicine [facility] EMERGENCY ROOM [address] [facility] [address] 02/06/2022 Burke Morelos MD 02/07/22 0013 documented [...] Manage Fall Risk Recent Flowsheet Documentation Taken 02/07/2022 1708 by Shana Whitehead RN Safety Promotion/Fall Prevention: ??? activity supervised ??? clutter free environment maintained ??? fall prevention program maintained ??? room organization consistent Problem: Plan of Care - These are the overarching goals to be used throughout the patient stay. Goal: Optimal Comfort and Wellbeing Outcome: Progressing Intervention: Monitor Pain and Promote Comfort Recent Flowsheet Documentation Taken 02/07/2022 1708 by Shana Whitehead RN Pain Management Interventions: [...] is slightly wheezy. Provider Notification - Shira Rocha RT - 02/07/2022 1:48 PM CDT Pt [...] Prevent atelectasis Pharmacy-Admission Medication History - Elizabeth Whaley, [facility] - 02/07/2022 10:32 AM CDT Pharmacy Note - Admission Medication History Pertinent Provider Information: was prescribed augmentin & zpak 02/01. Zpak is complete Prior To Admission (RIGHT OF WAY SUPERVISOR) med list completed and updated in EMR. RIGHT OF WAY SUPERVISOR Med List Medication Sig Last Dose ??? [...] by mouth 2 times daily 02/06/2022 ??? rofqzik-phwxnnedkzstx-tpxxcpwk (EXCEDRIN MIGRAINE) 250-250-65 MG tablet Take 1 [...] as needed PRN Information source(s): Patient and CareEverywhere/[facility] Method of interview communication: in-person Summary of Changes to RIGHT OF WAY SUPERVISOR Med List New: colchicine, augmentin Discontinued: miralax, celebrex Changed: oxycodone increased Patient was asked about OTC/herbal products specifically. RIGHT OF WAY SUPERVISOR med list reflects this. In the past week, patient estimated taking medication this percent of the time: greater than 90%. Allergies were reviewed, assessed, and updated with the patient. Medications currently not available for use during hospital stay. Family/Patient commercial sales representative states they will bring albuterol to [facility]. The information provided in this note is only as accurate as the sources available at the time of the update(s). Thank you for the opportunity to participate in the care of this patient. Elizabeth Whaley [facility] 02/07/2022 10:32 AM Plan of Care - [...] Comprehensive metabolic panel (02/08/2022 6:23 AM CDT) [facility] Method Time Signature Sodium 135 (L) 136 - 145 02/08/2022 [facility] mmol/L 7:45 AM CDT Potassium 3.9 3.5 - 5.0 02/08/2022 [facility] mmol/L 7:45 AM CDT Chloride 102 98 - 107 02/08/2022 [facility] mmol/L 7:45 AM CDT Carbon Dioxide 22 22 - 31 02/08/2022 [facility] (CO2) mmol/L 7:45 AM CDT Anion Gap 11 5 - 18 02/08/2022 [facility] mmol/L 7:45 AM CDT Urea Nitrogen 17 8 - 22 02/08/2022 [facility] mg/dL 7:45 AM CDT Creatinine 0.60 (L) 0.70 - 02/08/2022 [facility] 1.30 7:45 AM CDT mg/dL Calcium 9.5 8.5 - 02/08/2022 [facility] 10.5 7:45 AM CDT mg/dL Glucose 107 70 - 125 02/08/2022 [facility] mg/dL 7:45 AM CDT Alkaline 106 45 - 120 02/08/2022 [facility] Phosphatase U/L 7:45 AM CDT AST 14 0 - 40 02/08/2022 [facility] U/L 7:45 AM CDT ALT 19 0 - 45 02/08/2022 [facility] U/L 7:45 AM CDT Protein Total 5.7 (L) 6.0 - 8.0 02/08/2022 [facility] g/dL 7:45 AM CDT Albumin 2.0 (L) 3.5 - 5.0 02/08/2022 [facility] g/dL 7:45 AM CDT Bilirubin Total 0.3 0.0 - 1.0 02/08/2022 [facility] Y mg/dL 7:45 AM CDT GFR Estimate >90 >60 02/08/2022 [facility] mL/min/1. 7:45 AM CDT 73m2 Comment: Effective 2021 eGF Rcr in adults is calculated using the 2020 CKD-EPI creatinine equation which includ es age and gender (Megan et al., NEJM, DOI: 10.1056/PDCSbg1431243) Specimen Anatomical Collection Method / Collection Time Recei ry Time (Source) Location / Volume Laterality Blood STRUCTURE OF LEFT Venipuncture / 02/08/2022 6:23 02/08 7:15 HAND / Unknown Unknown AM CDT AM CDT Los Del Real DO LAB - BLOOD ORDERABLES Performing Organization Address City/State/ZIP Code Phon e Number [facility] [place] [address] [facility] [address] (ABNORMAL) CBC with platelets (02/08/2022 6:23 AM CDT) [facility] gist Method Time Signature WBC Count 3.5 (L) 4.0 - 11.0 02/08/2022 [facility] 10e3/uL 7:19 AM CDT RBC Count 3.39 (L) 4.40 - 02/08/2022 [facility] 5.90 7:19 AM CDT 10e6/uL Hemoglobin 9.8 (L) 13.3 - 02/08/2022 [facility] 17.7 g/dL 7:19 AM CDT Hematocrit 30.7 (L) 40.0 - 02/08/2022 [facility] 53.0 % 7:19 AM CDT MCV 91 78 - 100 02/08/2022 [facility] fL 7:19 AM CDT MCH 28.9 26.5 - 02/08/2022 [facility] 33.0 pg 7:19 AM CDT MCHC 31.9 31.5 - 02/08/2022 [facility] 36.5 g/dL 7:19 AM CDT RDW 14.7 10.0 - 02/08/2022 [facility] 15.0 % 7:19 AM CDT Platelet Count 241 150 - 450 02/08/2022 [facility] 10e3/uL 7:19 AM CDT Specimen Anatomical Collection Method / Collection Time Recei ry Time (Source) Location / Volume Laterality Blood STRUCTURE OF LEFT Venipuncture / 02/08/2022 6:23 02/08 7:15 HAND / Unknown Unknown AM CDT AM CDT Los Del Real DO LAB - BLOOD ORDERABLES Performing Organization Address City/State/ZIP Code Phon e Number [facility] [place] [address] [place] [address] ECHO COMPLETE WITH CONTRAST (02/07/2022 2:39 PM CDT) athologist Signature LVEF 55-60% CARDIOLOGY RESULTS Anatomical Region Laterality Modality Ultrasound Specimen (Source) Anatomical Collection Method Collection Time Re ceived Time Location / / Volume Laterality 02/07/2022 1:33 PM CDT Narrative 02/08/2022 8:39 AM CDT [id number]^OREN^[address] [address] Name: CASH TINOCO : 1960 Study Date: 02/07/2022 01:33 PM Age: 61 yrs Gender: Male Patient Location: [facility] Reason For Study: Chest Pain Ordering Physician: STEPH LOTT Performed By: PLIY BSA: 1.8 m2 Height: 65 in Weight: 165 lb HR: 80 Procedure Complete Echo Adult. Definity ([facility]NOTE 3[facility] #[id number]) given intravenously. Interpretation Summary Left ventricular [...] Procedure Note Ele Slade MD - 02/08/2022 [id number]^OREN^[place] [address] Name: CASH TINOCO : 1960 Study Date: 02/07/2022 01:33 PM Age: 61 yrs Gender: Male Patient Location: [facility] Reason For Study: Chest Pain Ordering Physician: STEPH LOTT Performed By: PILY BSA: 1.8 m2 Height: 65 in Weight: 165 lb HR: 80 Procedure Complete Echo Adult. Definity ([facility][NOTE 3[facility] #[id number]) given intravenously. Interpretation Summary Left [...] Respiratory Panel PCR (02/07/2022 9:26 AM CDT) [facility] Method Time Signature Adenovirus Not Detected Not [...] ap proval for the testing of nasopharyngeal (BRUSH SANDER) swabs only. The Infectious Diseases Diag nostic Laboratory at [facility] has validated the performance characteristic s for [...] IDD LABORATORY [facility] [place] [id number] Diag. Lab [address] [facility] Asymptomatic COVID-19 Virus (Coronavirus) by PCR Nose (02/07/2022 9:26 AM CDT) Analysis Performed At Patho logist Time Signature SARS CoV2 PCR Negative Negative 02/07/2022 [facility] 10:19 AM CDT Comment: NEGATIVE: SARS-CoV-2 (COVID-19) RNA not detected, presumed negative. Specimen Anatomical Collection Method Collection Time Receive d Time (Source) Location / / Volume Laterality Swab NASAL STRUCTURE / Non-blood 02/07/2022 9:26 AM 01/23 9:31 Unknown Collection / CDT AM CDT Unknown Narrative [facility] - 02/07/2022 10:19 AM CDT Testing was performed using the Xpert Xpress SARS-CoV-2 Assay on the [employer]. A dditional information about this [...] COVID-19. This test was validated by the [facility]. This laboratory is certified under the Clinical Laboratory Improvement Amendments of 1988 (CLIA-88) as qualified to perform high complexity laboratory testing. Steph Lott MD LAB - MICRO GENERAL ORDERABL ES Performing Organization Address City/[facility]/ZIP Code Phon e Number [facility] [place] [address] [facility] CenterGreyson Days Creektrace Hassan (ABNORMAL) Respiratory Aerobic Bacterial Culture with [...] Collection / CDT AM CDT Unknown Los De lReal DO LAB - MICRO GENERAL ORDERABL ES Performing Organization Address City/State/ZIP Code Phon e Number [facility] IDD [facility]ORAT[facility] [place] [address] Diag. Lab [address] [facility], [address] CT Abdomen Pelvis w Contrast (02/07/2022 12:22 AM CDT) Anatomical Region Laterality Modality Abdomen/Pelvis, SUBRAD CT BODY, [facility] CT ABDOMEN PELVIS, Computed Tomography RAD CT [...] CT CHEST PULMONARY EMBOLISM W CONTRAST LOCATION: [facility] DATE/TIME: 02/07/2022 12:22 AM INDICATION: Right chest [...] ng 2.9 cm which destroys the left insurance claim auditor ior 12th rib was not included in the vkdkj-fz-bqwu o n 11/17/2021 but is new from [...] C HEST PULMONARY EMBOLISM W CONTRAST LOCATION: [facility] DATE/TIME: 02/07/2022 12:22 AM INDICATION: Right chest [...] 12th rib was not included in the loeky-bo-pcio o n 11/17/2021 but is new from [...] CT CHEST PULMONARY EMBOLISM W CONTRAST LOCATION: [facility] DATE/TIME: 02/07/2022 12:22 AM INDICATION: Right chest [...] ng 2.9 cm which destroys the left insurance claim auditor ior 12th rib was not included in the btzlu-yr-kfwg o n 11/17/2021 but is new from [...] C HEST PULMONARY EMBOLISM W CONTRAST LOCATION: [facility] DATE/TIME: 02/07/2022 12:22 AM INDICATION: Right chest [...] 12th rib was not included in the rvntr-vd-cwyj o n 11/17/2021 but is new from [...] is probably a metastasis. Burke Morelos MD [facility] ORDERABLES B-Type Natriuretic Peptide ([facility] Only) (02/06/2022 11:03 PM CDT) athologist Signature BNP 33 0 - 53 02/07/2022 [facility] pg/mL 2:47 AM CDT Specimen Anatomical Collection Method / Collection Time Recei ry Time (Source) Location / Volume Laterality Blood STRUCTURE OF RIGHT Venipuncture / 02/06/2022 11:03 UPPER LIMB / Unknown PM CDT 11:08 PM CDT Unknown Los Del Real DO LAB - BLOOD ORDERABLES Performing Organization Address City/State/ZIP Code Phon e Number [facility] [place] [address] [address] [facility] (ABNORMAL) Manual Differential (02/06/2022 11:03 PM CDT) [facility] Method Time Signature % Neutrophils 85 % 02/07/2022 [facility] 12:04 AM LABORATORY CDT % Lymphocytes 7 % 02/07/2022 [facility] 12:04 AM LABORATORY CDT % Monocytes 8 % 02/07/2022 [facility] 12:04 AM LABORATORY CDT % Eosinophils 0 % 02/07/2022 [facility] 12:04 AM LABORATORY CDT % Basophils 0 % 02/07/2022 [facility] 12:04 AM LABORATORY CDT Absolute 4.8 1.6 - 8.3 02/07/2022 [facility] Neutrophils 10e3/uL 12:04 AM LABORATORY CDT Absolute 0.4 (L) 0.8 - 5.3 02/07/2022 [facility] Lymphocytes 10e3/uL 12:04 AM LABORATORY CDT Absolute 0.5 0.0 - 1.3 02/07/2022 [facility] Monocytes 10e3/uL 12:04 AM LABORATORY CDT Absolute 0.0 0.0 - 0.7 02/07/2022 [facility] Eosinophils 10e3/uL 12:04 AM LABORATORY CDT Absolute 0.0 0.0 - 0.2 02/07/2022 [facility] Basophils 10e3/uL 12:04 AM LABORATORY CDT RBC Morphology Confirmed RBC 02/07/2022 [facility] Indices 12:04 AM LABORATORY CDT Platelet Automated Automated 02/07/2022 [facility] Assessment Count Count 12:04 AM LABORATORY Confirmed. [...] Organization Address City/State/ZIP Code Phon e Number [facility] [place] [address] (ABNORMAL) CBC with platelets and differential (02/06/2022 11:03 PM CDT) Patholo gist Method Time Signature WBC Count 5.7 4.0 - 11.0 02/07/2022 [facility] LABORATORY 10e3/uL 12:04 AM CDT RBC Count 3.63 (L) 4.40 - 02/07/2022 [facility] LABORATORY 5.90 12:04 AM CDT 10e6/uL Hemoglobin 10.7 (L) 13.3 - 02/07/2022 [facility] LABORATORY 17.7 g/dL 12:04 AM CDT Hematocrit 32.9 (L) 40.0 - 02/07/2022 [facility] LABORATORY 53.0 % 12:04 AM CDT MCV 91 78 - 100 02/07/2022 [facility] LABORATORY fL 12:04 AM CDT MCH 29.5 26.5 - 02/07/2022 [facility] LABORATORY 33.0 pg 12:04 AM CDT MCHC 32.5 31.5 - 02/07/2022 [facility] LABORATORY 36.5 g/dL 12:04 AM CDT RDW 14.6 10.0 - 02/07/2022 [facility] LABORATORY 15.0 % 12:04 AM CDT Platelet Count 213 150 - 450 02/07/2022 [facility] LABORATORY 10e3/uL 12:04 AM CDT Specimen Anatomical Collection Method / Collection Time Recei ry Time (Source) Location / Volume Laterality Blood STRUCTURE OF RIGHT Venipuncture / 02/06/2022 11:03 UPPER LIMB / Unknown PM CDT 11:08 PM CDT Unknown Burke Morelos MD LAB - BLOOD ORDERABLES Performing Organization Address City/State/ZIP Code Phon e Number [facility] [place] [address] INR (02/06/2022 11:03 PM CDT) P athologist Signature INR 1.10 0.85 - 1.15 02/06/2022 [facility] LABORATORY 11:19 PM CDT Specimen Anatomical Collection Method / Collection Time Recei ry Time (Source) Location / Volume Laterality Blood STRUCTURE OF RIGHT Venipuncture / 02/06/2022 11:03 UPPER LIMB / Unknown PM CDT 11:08 PM CDT Unknown Burke Morelos MD LAB - BLOOD ORDERABLES Performing Organization Address City/[facility]/ZIP [place] [address] Troponin I (02/06/2022 11:03 PM CDT) athologist Signature Troponin I 0.02 0.00 - 0.29 02/06/2022 [facility] LABORATORY ng/mL 11:38 PM CDT Specimen Anatomical Collection Method / Collection Time Recei ry Time (Source) Location / Volume Laterality Blood STRUCTURE OF RIGHT Venipuncture / 02/06/2022 11:03 UPPER LIMB / Unknown PM CDT 11:08 PM CDT Unknown Burke Morelos MD LAB - BLOOD ORDERABLES Performing Organization Address City/[facility]/[place]IP [place] [address] Lactic acid whole blood (02/06/2022 11:03 PM CDT) athologist Signature Lactic Acid 0.9 0.7 - 2.0 02/06/2022 [facility] LABORATORY mmol/L 11:17 PM CDT Specimen Anatomical Collection Method / Collection Time Recei ry Time (Source) Location / Volume Laterality Blood STRUCTURE OF RIGHT Venipuncture / 02/06/2022 11:03 UPPER LIMB / Unknown PM CDT 11:08 PM CDT Unknown Burke Morelos MD LAB - BLOOD ORDERABLES Performing Organization Address City/[facility]/[place]IP [place] [address] (ABNORMAL) CRP inflammation (02/06/2022 11:03 PM CDT) athologist Signature CRP 29.2 (H) 0.0 - <0.8 02/06/2022 [facility] LABORATORY mg/dL 11:28 PM CDT Specimen Anatomical Collection Method / Collection Time Recei ry Time (Source) Location / Volume Laterality Blood STRUCTURE OF RIGHT Venipuncture / 02/06/2022 11:03 UPPER LIMB / Unknown PM CDT 11:08 PM CDT Unknown Burke Morelos MD LAB - BLOOD ORDERABLES Performing Organization Address City/State/ZIP Code Phon e Number [facility] LABORATORY [facility] [place] [address] [facility] (ABNORMAL) Comprehensive metabolic panel (02/06/2022 11:03 PM CDT) [facility] Method Time Signature Sodium 133 (L) 136 - 145 02/06/2022 [facility] LABORATORY mmol/L 11:28 PM CDT Potassium 3.9 3.5 - 5.0 02/06/2022 [facility] LABORATORY mmol/L 11:28 PM CDT Chloride 100 98 - 107 02/06/2022 [facility] LABORATORY mmol/L 11:28 PM CDT Carbon Dioxide 25 22 - 31 02/06/2022 [facility] LABORATORY (CO2) mmol/L 11:28 PM CDT Anion Gap 8 5 - 18 02/06/2022 [facility] LABORATORY mmol/L 11:28 PM CDT Urea Nitrogen 24 (H) 8 - 22 02/06/2022 [facility] LABORATORY mg/dL 11:28 PM CDT Creatinine 0.57 (L) 0.70 - 02/06/2022 [facility] LABORATORY 1.30 11:28 PM CDT mg/dL Calcium 9.3 8.5 - 02/06/2022 [facility] LABORATORY 10.5 11:28 PM CDT mg/dL Glucose 98 70 - 125 02/06/2022 [facility] LABORATORY mg/dL 11:28 PM CDT Alkaline 122 (H) 45 - 120 02/06/2022 [facility] LABORATORY Phosphatase U/L 11:28 PM CDT AST 14 0 - 40 02/06/2022 [facility] LABORATORY U/L 11:28 PM CDT ALT 21 0 - 45 02/06/2022 [facility] LABORATORY U/L 11:28 PM CDT Protein Total 5.7 (L) 6.0 - 8.0 02/06/2022 [facility] LABORATORY g/dL 11:28 PM CDT Albumin 2.3 (L) 3.5 - 5.0 02/06/2022 [facility] LABORATORY g/dL 11:28 PM CDT Bilirubin Total 0.5 0.0 - 1.0 02/06/2022 [facility] LABORATOR Y mg/dL 11:28 PM CDT GFR Estimate >90 >60 02/06/2022 [facility] LABORATORY mL/min/1. 11:28 PM CDT 73m2 Comment: Effective 2021 eGF Rcr in adults is calculated using the 2020 CKD-EPI creatinine equation which includ es age and gender (Megan et al., NEJM, DOI: 10.1056/XGXSwh7448112) Specimen Anatomical Collection Method / Collection Time Recei ry Time (Source) Location / Volume Laterality Blood STRUCTURE OF RIGHT Venipuncture / 02/06/2022 11:03 UPPER LIMB / Unknown PM CDT 11:08 PM CDT Unknown Burke Morelos MD LAB - BLOOD ORDERABLES Performing Organization Address City/State/ZIP Code Phon e Number [facility] [place] [address] [place], [place] [address]joe Hassan documented in this encounter Visit Diagnoses [...] analgesic side effects. Hold while on IV TELECOMMUNICATION SYSTEMS DESIGNER or with regular IV opioid dosing. Given [...] 2 MIN PRN, opioid reversal, Starting on Tue02/07/22 at 1859, Administer intramuscular if an intravenous ro [place] is not available and notify provider when [...] MIN PRN, op ioid reversal, Starting on Tue02/07/22 at 1859, Administer intravenous route when available [...] 2 MIN PRN, opioid reversal, Starting on 10/16/22 at 1859, Administer intramuscular if an intravenous ro [place] is not available and notify provider when [...] 02/07/2022 02/08/2022 0.9% sodium chloride BOLUS (COMPLETED) 8714 (New Bag - Provider: Mari Mosley RN) 004 (Stopped - Provider: Mari Mosley RN) Intravenous, 1,000 mL, ONCE, at 1,000 mL /hr, Administer over 1 Hours, On 02/06/22 at 2300, For 1 dose acetaminophen (TYLENOL) tablet 650 mg (COMPLETED) 2256 (Given - Provider: Mari Mosley, RN) 650 mg, Oral, ONCE, On 02/06/22 at 2 300, For 1 dose, Maximum acetaminophen dose from all sources = 75 mg/kg/day not to exceed 4 grams/day. azithromycin 500 mg (ZITHROMAX) in 0.9% NaCl 250 mL intermittent infusion 500 mg (CANCELED) 226 (New Bag - Provider: [place] Mosley, RN)0330 (Stopped - Provider: Fatou Tian, ZAIN) STAT, 500 mg, Intravenous, EVERY 24 HOUR S, First dose on 02/07/22 at 0230, Indications: Community Acquired Pneumonia colchicine (COLCYRS) tablet 0.6 mg 2200 (Given - Provider: Shana Whitehead RN) 0848 [...] mL, Intramuscular, PRIOR TO DISCHARG E, On Tue22 at 1000, For 1 dose, - Administer [...] 100 mL (COMPLETED) 0000 (Given - Provider: Shelby Roque ARRT) 100 mL, Intravenous, ONCE, On 02/07/22 at 0000, For 1 dose ipratropium - albuterol 0.5 mg/2.5 mg/3 mL (DUONEB) neb solu tion 3 mL 0845 (Given - Provider: Shira Rocha, RT)1202 (Given - Provider: Shira Rocha RT)1602 (Given - Provider: Shira Rocha, RT)2000 (Canceled Entry - Provider: Cesia Martin RT - Comment: PRN Duoneb given) 0742 (Given - Provider: Cesia Martin RT)1157 (Given - Provider: Cesia Martin RT)1600 [...] 1329 (Patch in Place - Provider: Francie Segundo, ZAIN)2202 (Patch in Place - Provider: Shana Whitehead, ZAIN) 0501 (Patch Free Period - Provider: Rosaura Loera RN)1400 (Canceled Entry - Provider: Orders Generic Provider [...] Nikki Ackerman RN)1932 (Given - Provider: Shana Whitehead, ZAIN) 0847 (Given - Provider: Simona Santoro RN) [...] attach to NS 100 mL bag (COMPLETED) 012 (Given - Provider: Mari Mosley, ZAIN) STAT, 3.375 g, Intravenous, ONCE, On 02/07/22 [...] RN) 0848 (Given - Provider: Kenna Moran) 10 mg, [...] infusing) 0207 (Given - Provider: Rosaura Loera, ZAIN)1001 (Given - Provider: Simona Santoro RN) 3 mL, Intracatheter, EVERY 8 HOURS, Firs t dose on 02/07/22 at 0230, to lock peripheral IV dormant line Continuous Medication Order 02/06/2022 02/07/2022 02/08/2022 sodium chloride 0.9% infusion (CANCELED) 0048 (New Bag - Provider: Mari Mosley RN)0400 (Rate/Dose Change - Provider: Fatou Tian, ZAIN)0654 (Rate/Dose Verify - Provider: Fatou Tian RN)0800 (Rate/Dose Verify - Provider: Nikki Ackerman RN) at 50 mL/hr, Intravenous, CONTINUOUS, Ad equipment operator wage hand after the bolus., Starting on 02/07/22 at [...] Whitehead RN) 0037 (Given - Provider: Rosaura Loera RN)0852 (Given - Provider: Simona Santoro RN) 650 mg, Oral, EVERY 4 HOURS PRN, [...] 0 mL 1213 (Given - Provider: Nikki Ackerman RN) 0037 (Given - Provider: Rosaura Loera, ZAIN - Comment: patient refused full dose)0958 (Given - Provider: Simona Santoro, ZAIN) 10 mL, Oral, 2 TIMES DAILY PRN, cough, Starting on 02/07/22 at 1035 HYDROmorphone (PF) (DILAUDID) injection 0.5 mg 1218 (Not Given - Provider: Nikki Ackerman RN - Reason: Other - Comment: pt wanted oxy at this time)1326 (Given - Provider: Francie Segundo RN)1932 (Given - Provider: Shana Whitehead RN) 003 (Given - Provider: Rosaura Loera, ZAIN) 0.5 mg, Intravenous, EVERY 2 HOURS PRN, moderate to severe pain, Starting on 02/07/22 at 0206 ipratropium - albuterol 0.5 mg/2.5 mg/3 mL (JOIB) neb solu tion 3 mL 2041 (Given [...] expected. morphine (PF) injection 4 mg (COMPLETED) 0018 (Given - Provider: Mari Mosley RN)0806 (Given - Provider: Nikki Ackerman RN)1052 (Given - Provider: Nikki Ackerman RN) 4 mg, Intravenous, EVERY 15 MIN PRN, mod erate to severe pain, Starting on 02/06/22 at 2332, For 3 doses, Notify the provider to assess for uncontrolled pain or analgesic side effects. Hold while on IV TELECOMMUNICATION SYSTEMS DESIGNER or with regular IV opioid dosing. naloxone [...] mg (CANCELED) 0233 (Given - Provider: Mari Mosley, RN)0658 (Given - Provider: Fatou Tian RN) 10 mg, Oral, EVERY 4 HOURS PRN, moderate to severe pain, Starting on 02/07/22 at 0206 oxyCODONE (ROXICODONE) tablet 10-20 mg 1 217 (Given - Provider: Nikki Ackerman, ZAIN)1701 (Given - Provider: Maria Luisa Cota, ZAIN)2159 (Given - Provider: Shana Whitehead, ZAIN) 0205 (Given - Provider: Rosaura Loera, ZAIN)0552 (Given - Provider: Camelia Jones, ZAIN)0959 (Given - Provider: Simona Santoro, ZAIN) 10-20 [...] documented as of this encounter Care Teams Framer Relationship Specialty Start Date End Date Hakeem Cunningham PCP - General Family Medicine 01/06/22 [address] [place] [address] documented as of this encounter
--- OUTSIDE RECORDS SUMMARY | 2022-03-02 20:14 | XMS_ITS | Encounter Summary ---
:1960 Author Organization [place] Address [address] [place] [address] Care Team Providers Name Role Phone Tin Hernandez Primary Care Provider Reason for Visit Auth/Cert Specialty Diagnoses / Procedures Referred By Contact Refer red To Contact Surgery Diagnoses Lung cancer metastatic to bone (H) Lesion of femur Lung cancer metastatic to bone (H) [C34.90, C79.51] Lesion of femur [M89.9] [facility] [place] Periop Services Procedures ZZC OPEN FIX INTER/SUBTROCH FX,PLATE ZZC OPEN FIX INTER/SUBTROCH FX,IMPLNT ZZC OPEN TREATMENT GREATER TROCHANTERIC FRACTURE PROPHYLACTIC INTRAMEDULLARY NAILING OF RIGHT HIP [address] [place], [place] [phone] Phone: Referral ID Status Reason Start Date Expiration Date Visits Requ ested Visits Authorized [id number] 1 1 Encounter Details Date Type Department Care Team Description 01/07/2022 Anesthesia Event [facility] Mina Castillo [facility] [address] [place] [address] [place], [place] [phone] (Wo rk) [id number] [phone] Anesthesia Record Procedure Summary Procedure Name Responsible Anesthesia Start Anesthesia Stop Anesthesiologist Time Time PROPHYLACTIC Hector Castillo, 01/07/22 1400 01/07/22 1605 INTRAMEDULLARY NAILING MD OF RIGHT HIP (Right: Hip) Events Date Time Event Comment 01/07/2022 1236 1253 CHAINSTITCH HEMMER Ready for Procedure 1400 An Start 1401 AN REASSESS I attest that I have identified and re-evaluated the patient immediately before the induction of anesthesia and I am satisfied that t he anesthetic plan is suitable for the patient's condition and procedure. The f irst vital signs recorded are pre- inducti on. Vandana Padilla APRN CHAINSTITCH HEMMER 1401 An Start Data 1404 MD Present 1410 Anesthesia Complete 1501 MD Present 1538 MD Present 1556 an stop data 1605 An Stop Electronically s igned by Vandana Padilla APRN CHAINSTITCH HEMMER on 2021 4:05 PM Name Total midazolam [...] and realistic alternatives discussed. 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 - Discussed: Risks, Benefits [...] Care Transfer Note - Vandana Padilla APRN CHAINSTITCH HEMMER - 01/07/2022 4:05 PM CDT Patient: Hector [...] Administration Time: 2:05 PM Coleman Oneill MD [place] ANESTHESIA documented in this encounter Visit Diagnoses [...] mL/hr documented in this encounter Care Teams Control Clerk Relationship Specialty Start Date End Date Tin Hernandez PCP - General Family Medicine 01/06/[address] [place] [address] documented as of this encounter
--- OUTSIDE RECORDS SUMMARY | 2022-03-02 20:14 | XMS_ITS | Encounter Summary ---
:1960 Author Organization [facility] Address [address] [place] [id number] Care Team Providers Name Role Phone Unavailable [...]
--- OUTSIDE RECORDS SUMMARY | 2022-03-02 20:14 | XMS_ITS | Encounter Summary ---
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 COMPLICATIONS/SIGNIFICANT FINDINGS None DISCHARGE INFORMATION [...] to metastasis (H) Nikky Encinas PA-C/Dr. Humphries [facility] [phone] Date: 01/08/2022 Time: 9:02 AM documented in [...] daily as needed (90 Base) MCG/ACT inhaler oluxwhu-kgmfkyuvjllcy-vg Take 1 tablet by 0 ffeine (EXCEDRIN [...] lower body dressing Lower Body Dressing Assessment/Training Beckham Level (Lower Body Dressing) minimum assist (75% [...] CO2 Report completed by: Nikky Encinas PA-C [facility] Date: 01/08/2022 Time: 8:59 AM Michael Mazariegos MD - 01/08/2022 8:57 AM CDT [facility] MEDICINE PROGRESS NOTE Identification/Summary: 61-year-old male with a history of metastatic adenocarcinoma of the lung presents for prophylactic intramedullary nailing of the hip. Doing all right postoperative day #1. Metastatic adenocarcinoma the right lung Status post prophylactic intramedullary nailing Patient will follow up with his oncologist through [facility] Acute blood loss anemia Mild and asymptomatic [...] care was discussed with the Bedside Nurse, Uniform Cap Operator/Refinery Operator Helper Crude Unit and Patient. Michael Mazariegos MD [facility] Phone: #[phone] Interval History/Subjective: Patient feeling good. Eating. Urinating. [...] be read by a radiologist or a [place] non-radiologist provider. Labs: Most Recent 3 CBC's:Recent [...] Transfers Transfers sit-stand transfer Sit-Stand Transfer Sit-Stand Beckham (Transfers) supervision;verbal cues Gait/Stairs (Locomotion) Beckham Level (Gait) supervision;verbal cues;nonverbal cues (demo/gesture) Assistive Device (Gait) walker, front-wheeled Distance in Feet (Required for LE Total Joints) 100 Pattern (Gait) 3-point Deviations/Abnormal Patterns (Gait) gait speed decreased Maintains Weight-bearing Status (Gait) able to maintain;nonverbal cues (demo/gesture) to maintain;verbal cues to maintain Negotiation (Stairs) stairs independence;stairs assistive device;handrail location;number of steps;ascending technique;descending technique Beckham Level (Stairs) supervision;verbal cues;nonverbal cues (demo/gesture) Handrail Location (Stairs) both sides Number of Steps (Stairs) 4 Ascending Technique (Stairs) chit-ki-gwgj Descending Technique (Stairs) mmuy-dy-wizy Clinical Impression Criteria for Skilled Therapeutic Intervention [...] 5:42 PM CDTAssociated Order(s): HOSPITALIST IP CONSULT [facility] MEDICINE CONSULT NOTE Physician requesting consult: Wayne Humphries MD Reason for consult: Postoperative medical management of medical co-morbidities as below Assessment and Plan Hector Norris is a 61 year old old male with a history of metastatic adenocarcinoma of the right lung presents for prophylactic intramedullary nailing of the right hip due to metastases. [facility] service was asked to [...] will follow up with his oncologist through [facility] Rheumatoid arthritis Clinically stable Paroxysmal atrial fibrillation [...] Week at does not have with ??? vniymuj-tjdolghwkufxu-roaiagep (EXCEDRIN MIGRAINE) 250-250-65 MG tablet Take 1 [...] mouth 3 times daily as needed 01/06/2022 [id number] ??? ipratropium - albuterol 0.5 mg/2.5 mg/3 [...] be read by a radiologist or a [place] non-radiologist provider. Labs Reviewed Personally By Myself [...] Abnormality Status --------- ------ Adult Type and Screen[[id number]] Final result Please view results for these tests on the individual orders. Adult Type and Screen Result Value Ref Range ABO/RH(D) O POS Antibody Screen Negative Negative SPECIMEN EXPIRATION DATE [id number] XR Surgery MARK Fluoro G/T 5 Min Narrative This exam was marked as non-reportable because it will not be read by a radiologist or a [place] non-radiologist provider. Preoperative Labs Reviewed Personally By [...] questions or concerns. Michael Mazariegos MD [facility] Phone: #[phone] documented in this encounter Miscellaneous Notes Plan [...] See goals on Care Plan in [facility] electronic health record for goal details. Goals met Therapy recommendation(s): No further therapy is recommended. Plan of Care - Tasha Mensah, PT - 01/08/2022 8:57 AM CDT Physical Therapy Discharge Summary Reason for therapy discharge: Goals met. Progress towards therapy goal(s). See goals on Care Plan in [facility] electronic health record for goal details. Goals [...] analgesics: Yes Does patient have an identified wellness health coach: Yes Has goal D/C date and [...] analgesics: Yes Does patient have an identified wellness health coach: Yes Has goal D/C date and time been discussed with patient: Yes Continue to monitor VS, labs, pain level, incision site and activity tolerance. Goal Outcome Evaluation: Provider Notification - Wendy Gregg RN - 01/07/2022 1:24 PM CDT Notified Jason JIM, regarding todays labs, WBC elevated from 2 days ago. Will proceed with OR today. Pharmacy-Admission Medication History - Autumn Holm [facility] - 01/07/2022 12:29 PM CDT Pharmacy Note - Admission Medication History Pertinent Provider Information: n/a Prior To Admission (YARN INSPECTOR) med list completed and updated in EMR. [facility] Med List Medication Sig Last Dose ??? albuterol (PROAIR HFA/PROVENTIL HFA/VENTOLIN HFA) 108 (90 Base) MCG/ACT inhaler Inhale 2 puffs into the lungs 4 times daily as needed Past Week at does not have with ??? qjfvmuo-kyzemzsdccgsg-yxdhnhct (EXCEDRIN MIGRAINE) 250-250-65 MG tablet Take 1 [...] mouth 3 times daily as needed 01/06/2022 [id number] ??? ipratropium - albuterol 0.5 mg/2.5 mg/3 [...] Patient was asked about OTC/herbal products specifically. YARN INSPECTOR med list reflects this. Based on the pharmacist's assessment, the YARN INSPECTOR med list information appears reliable Allergies were reviewed, assessed, and updated with the patient. Patient did not bring any medications to the hospital and can't retrieve from home. No multi-dose medications are available for use during hospital stay. Thank you for the opportunity to participate in the care of this patient. Autumn Holm, PharmD, [facility] 01/07/2022 12:29 PM Op Note - Wayne [...] fascia iliac a block in preop per [facility]. He was appropriately premedicated. Consent obtained risks reviewed. Labswere checked. He was premedicated brought to the operative room undergoing anesthetic induction. Transferred to the Standish table. Standish boot was applied to the right lower [...] in the sagittal plane, using the perfect wampanoag technique was used to drill the static transverse screw hole. This was measured and filled with the appropriately sized interlocking screw. Then, in likewise fashion using the C-arm in the sagittal plane, using the perfect wampano[place] technique, the dynamic screw slot was predrilled [...] procedure well and was sent to the [place] in stable condition. Estimated Blood Loss: Less than 50 cc Specimens: No specimen Drains: No drain Complications: None Wayne Humphries MD Date: 01/07/2022 Time: 3:37 PM Implant Name Type Inv. Item Serial No. Mechanic Helper Lot No. LRB No. Used Action SYNTHES TITANIUM NAIL RT 12MM X 380MM SYNTHES [id number] Right 1 Implanted SYNTHES LOCKING SCREW IM NAIL 5 X 38MM SYNTHES [id number] Right 1 Implanted SYNTHES IM LOCKING SCREW 5 X 72MM SYNTHES [id number] Right 1 Implanted SYNTHES LOCKING SCREW IM NAIL 5 X 40MM SYNTHES [id number] Right 1 Implanted SYNTHES LOCKING SCREW IM NAIL 5 X 46MM SYNTHES [id number] Right 1 Implanted Provider Notification - Blaine Castillo APRN CNP - 01/06/2022 12:36 PM CDT I am evaluating this patient for upcoming Prophylactic Intramedullary Nailing of Right Hip with Dr. Humphries at [facility] on 01/07/22: - Notified by preop [...] APRN, CNP Advanced Practice Nurse Navigator- Orthopedics [facility] Office Direct documented in this encounter [...] Notes SYNTHES RECON NAIL LOANERS.N blayne Carnes. [phone] John Wells [phone] Ernestina Goodson [phone] Special Needs C-Arm - Removed C-Arm (confl [...] Signature Hemoglobin 10.7 (L) 13.3 - 01/08/2022 [facility] 17.7 g/dL 5:42 AM CDT Specimen Anatomical Collection Method / Collection Time Recei ry Time (Source) Location / Volume Laterality Blood STRUCTURE OF RIGHT Venipuncture / 01/08/2022 5:36 /09/2021 5:39 UPPER LIMB / Unknown AM CDT AM CDT Unknown Jason Guzman PA-C LAB - BLOOD ORDERABLES Performing Organization Address City/State/ZIP Code Phon e Number [facility] [place] [address] [place] [address] XR Surgery MARK Fluoro G/T 5 Min (01/07/2022 3:53 PM CDT) Specimen (Source) Anatomical Location Collection Method / Collectio n Time Received Time / Laterality Volume Narrative [facility] - 01/07/2022 3:56 PM CDT This exam was marked as non-reportable because it will not be read by a radiologist or a [place] non-radiologis t provider. Wayne Humphries MD IMG DIAGNOSTIC IMAGING ORDER DUNG Performing Organization Address City/[facility]/ZIP Code Phon e Number [facility] Adult Type and Screen (01/07/2022 12:13 PM CDT) [facility] Method Time Signature ABO/RH(D) O POS 01/07/2022 [facility] 12:15 PM BANK CDT Antibody Negative Negative 01/07/2022 [facility] Screen 12:15 PM BANK CDT SPECIMEN [id number] 01/07/2022 [facility] EXPIRATION 12:15 PM BANK DATE CDT Specimen Anatomical Collection Method / Collection Time Recei ry Time (Source) Location / Volume Laterality Blood BLOOD SPECIMEN / Venipuncture / 01/07/2022 12:13 01/07 Unknown Unknown PM CDT 12:22 PM CDT Jason Guzman PA-C LAB - BLOOD BANK TEST ORDER Performing Organization Address City/[facility]/ZIP Code Phon e Number [facility] [address] [place] [address] (ABNORMAL) Erythrocyte sedimentation rate auto (01/07/2022 12:13 PM CDT) Patholo gist Method Time Signature Erythrocyte 25 (H) 0 - 15 01/07/2022 [facility] Sedimentation Rate mm/hr 1:07 PM CDT Specimen Anatomical Collection Method / Collection Time Recei ry Time (Source) Location / Volume Laterality Blood BLOOD SPECIMEN / Venipuncture / 01/07/2022 12:13 01/07 Unknown Unknown PM CDT 12:22 PM CDT Jason Guzman PA-C LAB - BLOOD ORDERABLES Performing Organization Address City/[facility]/[place] [address] (ABNORMAL) CRP inflammation (01/07/2022 12:13 PM CDT) athologist Signature CRP 1.4 (H) 0.0 - <0.8 01/07/2022 [facility] mg/dL 12:38 PM CDT Specimen Anatomical Collection Method / Collection Time Recei ry Time (Source) Location / Volume Laterality Blood BLOOD SPECIMEN / Venipuncture / 01/07/2022 12:13 01/07 Unknown Unknown PM CDT 12:22 PM CDT Jason Guzman PA-C LAB - BLOOD ORDERABLES Performing Organization Address City/[facility]/[place] [address] INR (01/07/2022 12:13 PM CDT) athologist Signature INR 0.94 0.85 - 1.15 01/07/2022 [facility] 12:36 PM CDT Specimen Anatomical Collection Method / Collection Time Recei ry Time (Source) Location / Volume Laterality Blood BLOOD SPECIMEN / Venipuncture / 01/07/2022 12:13 01/07 Unknown Unknown PM CDT 12:22 PM CDT Jason Guzman PA-C LAB - BLOOD ORDERABLES Performing Organization Address City/[facility]/[place] [address] (ABNORMAL) Creatinine (01/07/2022 12:13 PM CDT) athologist Signature Creatinine 0.69 (L) 0.70 - 01/07/2022 [facility] 1.30 mg/dL 12:38 PM CDT GFR Estimate >90 >60 01/07/2022 [facility] mL/min/1.7 12:38 PM CDT 3m2 Comment: Effective 2021 eGF Rcr in adults is calculated using the 2020 CKD-EPI creatinine equation which includ es age and gender (Megan et al., [place], DOI: 10.1056/JTVYkd0288205) Specimen Anatomical Collection Method / Collection Time Recei yr Time (Source) Location / Volume Laterality Blood BLOOD SPECIMEN / Venipuncture / 01/07/2022 12:13 01/07 Unknown Unknown PM CDT 12:22 PM CDT Jason Guzman PA-C LAB - BLOOD ORDERABLES Performing Organization Address City/[facility]/ZIP Code Phon e Number [facility] [place] [address] Potassium (01/07/2022 12:13 PM CDT) athologist Signature Potassium 4.3 3.5 - 5.0 01/07/2022 [facility] mmol/L 12:38 PM CDT Specimen Anatomical Collection Method / Collection Time Recei ry Time (Source) Location / Volume Laterality Blood BLOOD SPECIMEN / Venipuncture / 01/07/2022 12:13 01/07 Unknown Unknown PM CDT 12:22 PM CDT Jason Guzman PA-C LAB - BLOOD ORDERABLES Performing Organization Address City/State/ZIP Code Phon e Number [facility] [place] [address] (ABNORMAL) CBC with platelets (01/07/2022 12:13 PM CDT) [facility] gist Method Time Signature WBC Count 13.2 (H) 4.0 - 11.0 01/07/2022 [facility] 10e3/uL 12:26 PM CDT RBC Count 4.02 (L) 4.40 - 01/07/2022 [facility] 5.90 12:26 PM CDT 10e6/uL Hemoglobin 12.0 (L) 13.3 - 01/07/2022 [facility] 17.7 g/dL 12:26 PM CDT Hematocrit 36.0 (L) 40.0 - 01/07/2022 [facility] 53.0 % 12:26 PM CDT MCV 90 78 - 100 01/07/2022 [facility] fL 12:26 PM CDT MCH 29.9 26.5 - 01/07/2022 [facility] 33.0 pg 12:26 PM CDT MCHC 33.3 31.5 - 01/07/2022 [facility] 36.5 g/dL 12:26 PM CDT RDW 15.2 (H) 10.0 - 01/07/2022 [facility] 15.0 % 12:26 PM CDT Platelet Count 417 150 - 450 01/07/2022 [facility] 10e3/uL 12:26 PM CDT Specimen Anatomical Collection Method / Collection Time Recei ry Time (Source) Location / Volume Laterality Blood BLOOD SPECIMEN / Venipuncture / 01/07/2022 12:13 01/07 Unknown Unknown PM CDT 12:22 PM CDT Jason Guzman PA-C LAB - BLOOD ORDERABLES Performing Organization Address City/State/ZIP Code Phon e Number [facility] [place] [address] [place] [address] POC US Guidance Needle Placement (01/07/2022 12:03 [...] management to improve pain control., Starting on [place] at 0000, May give first dose 4 hours after last scheduled dose of acetaminophen (TYLENOL). Maximum acetaminophen dose from all sources = 75 mg/kg/day not to exceed 4 grams/day. acetaminophen (TYLENOL) tablet 975 mg Given 01/07/2022 12:23 PM CDT 975 mg 975 mg, Oral, ONCE, On [facility] 01/07/22 at 1230, For 1 dose, Maximum acetaminophen dose from all sources = 75 mg/kg/day not to exceed 4 grams/day., Pre-procedure alum & mag hydroxide-simethicone (MAALOX ) suspension 30 mL 30 mL, Oral, EVERY 4 HOURS PRN, indigest ion, Starting on [facility] 01/07/22 at 1701, Shake well. benzocaine-menthol (CEPACOL) [...] analgesic side effects. Hold while on IV JUNIOR MECHANICAL ENGINEER or with regular IV opioid dosing. Given [...] esic side effects. Hold while on IV JUNIOR MECHANICAL ENGINEER or with regular IV opioid dosing. pantoprazole [...] Padilla APRN CRNA) Routine, 2 g, Intravenous, PRE-OP/PRE-LA OCEDURE, Starting on [place] 01/07/22 at 1203, [...] tablet 40 mg 0632 (Given - Provider: Zraa Barrios RN) 40 mg, Oral, EVERY MORNING [...] oxyCODONE (ROXICODONE) tablet 10 mg(Linked Group 4) 550 (Given - Provider: [place]ar Drake RN)2313 (Given [...] sic side effects. Hold while on IV JUNIOR MECHANICAL ENGINEER or with regular IV opioid dosing. oxyCODONE [...] analgesic side effects. Hold while on IV JUNIOR MECHANICAL ENGINEER or with regular IV opioid dosing. sodium [...] after each naloxone dose. Consider transfer to [facility] if patient respiratory parameters hav e [...] side effects. Ho ld while on IV JUNIOR MECHANICAL ENGINEER or with regular IV opioid dosing.
Or oxyCODONE (ROXICODONE) tablet 10 mgJump to med 10 mg, Oral, EVERY 4 HOURS PRN, severe p ain, (pain rating 7-10), Starting on [place] 01/07/22 at 1701
Hold oral PRN dose for analgesic side effects. Notify provider to assess for uncontrolled pain o r analgesic side effects. Hold whi le on IV JUNIOR MECHANICAL ENGINEER or with regular IV opioid dosing.
documented in this encounter Care Teams Adjunct Faculty Instructor Relationship Specialty Start Date End Date Tin Hernandez PCP - General Family Medicine 01/06/[address] [place] [address] documented as of this encounter
--- OUTSIDE RECORDS SUMMARY | 2022-03-02 20:14 | XMS_ITS | Encounter Summary ---
:1960 Author Organization [place] Address [address] [place] [address] Care Team Providers Name Role Phone Tin [...] on filedocumented in this encounter Care Teams Lead Injection Mold Technician Relationship Specialty Start Date End Date Tin Hernandez PCP - General Family Medicine 01/06/[address] [place], [place] [id number] documented as of this encounter
--- OUTSIDE RECORDS SUMMARY | 2022-03-02 20:14 | XMS_ITS | Encounter Summary ---
:1960 Author Organization [place] Address [address] [place] [address] Care Team Providers Name Role Phone Tin [...] on filedocumented in this encounter Care Teams Safety Net Maker Relationship Specialty Start Date End Date Tin Hernandez PCP - General Family Medicine 01/06/[address] [place], [place] [id number] documented as of this encounter
--- OUTSIDE RECORDS SUMMARY | 2022-03-02 20:15 | XMS_ITS | Encounter Summary ---
:1960 Author Organization [facility] Address [address] [place] [address] Care Team Providers Name Role Phone Unavailable Primary Care Provider Unavailable Encounter Details Date Type Department Care Team Description 11/19/2021 Patient Outreach Department [place] M.S.N., R.N., [address] [facility] [place] [address] [address] [place] [address] [place] [address] Social History Tobacco Use Types Packs/Day Years [...]
--- OUTSIDE RECORDS SUMMARY | 2022-03-02 20:15 | XMS_ITS | Encounter Summary ---
:1960 Author Organization [facility] Address [address] [place] [address] Care Team Providers Name Role Phone Unavailable Primary Care Provider Unavailable Encounter Details Date Type Department Care Team Description 01/21/2022 Hospital Encounter Department of Radiation Delilah Sanchez I., Oncology in [place] [address] [facility] [address] [place] [id number] [phone] Social History Tobacco Use Types Packs/Day Years [...] do you attend mandaeism or Never 2021 gnosticist services? Do you [...] or the highest technical, or vocational p [facility] [employer] [facility] [employer] degree you have received? Sex Assigned at Date Recorded Male 08/23/2021 10:27 AM CDT documented as of this encounter Medications at Time of Discharge Medication Sig Dispensed Refills Start Date End Date albuterol 90 Inhale 2 puffs. 0 11/20/2021 mcg/actuation inhaler albuterol 90 Inhale 2 puffs as 0 11/20/2021 mcg/actuation inhaler needed. popyten-zrktnfbxmbxlg-ir Take 1 tablet by 0 ffeine (EXCEDRIN [...]
--- OUTSIDE RECORDS SUMMARY | 2022-03-02 20:15 | XMS_ITS | Encounter Summary ---
:[address] [facility] Address [address] [place] [address] Care Team Providers Name Role Phone Unavailable Primary Care Provider Unavailable Reason for Referral Outpatient (Routine) - Authorized Specialty Diagnoses / Procedures Referred By Contact Refer red To Contact Radiation Oncology Aidee Sanchez [facility] Jey Spencer [address] [place] [address] Referral ID Status Reason Start Date Expiration Date Visits V isits Requested Authorized [id number] Authorized 01/15/2022 01/14/2025 10 10 Radiation Therapy (Routine) - Authorized Specialty Diagnoses / Procedures Referred By Contact Refer red To Contact Diagnoses 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 [facility] Procedures Initial Rad Onc Treatment Planning CT Simulation [address] [place], [place] [address] Referral ID Status Reason Start Date Expiration Date Visits Requ ested Visits Authorized [id number] Closed 01/15/2022 01/15/2023 1 1 Outpatient (Routine) - Closed Specialty Diagnoses / Procedures Referred By Contact Refer red To Contact Radiation Oncology Aidee Sanchez [facility] M.D. [address] [place] [address] Referral ID Status Reason Start Date Expiration Date Visits Requ ested Visits Authorized [id number] Closed 11/19/2021 11/19/2022 1 1 Scheduling Instructions Coordinate for same day he sees Dr. Jeff bloom at [facility], thanks! Reason for Visit Outpatient (Routine) - Closed Specialty Diagnoses / Procedures Referred By Contact Refer red To Contact Radiation Oncology Aidee Sanchez [facility] [place] Khanna M.D. [address] [place] [address] Referral ID Status Reason Start Date Expiration Date Visits Requ ested Visits Authorized [id number] Closed 11/19/2021 11/19/2022 1 1 Encounter Details Date Type Department Care Team Description 01/15/2022 - Hospital Encounter Department of Aidee Sanchez Neoplasm Of Lung Middle Lobe Or Bronchus (HCC) (Primary Dx); 01/16/2022 Radiation Oncology Tj Covarrubias Secondary Malignant Neoplasm Bone (HCC) in [place] [address] [place], [place] [address] [facility] [address] [place], [place] [phone] [address] (Work) [phone] Social History Tobacco Use Types Packs/Day Years [...] do you attend sabianist or Never 2021 mormonism services? Do you [...] puffs as 0 11/20/2021 mcg/actuation inhaler needed. jctfagh-jznqnpmcvexum-jr Take 1 tablet by 0 ffeine (EXCEDRIN [...] Cycle 1 pemetrexed and carboplatin administered at [facility] in [place]. 10/05/21: Cycle 2 pemetrexed, carboplatin, and pembrolizumab administered at [facility]. Pembrolizumab / PEMEtrexed / CARBOplatin [...] treatment due to hospitalization #4 Admission to [facility] with postobstructive pneumonia from November 17, 2021 [...] the patient will have follow-up scheduled with [facility] Medical Oncology providers at the [facility] for discussion on next systemic [...] Mejias P.A.-C., M.SAllen 01/15/2022 12:[address] [facility] Radiation Therapy Center [address] [place], [place] [id number] Associated attestation - Aidee Sanchez M.D. 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 01/15/2022 4:55 PM CD[address] Radiation Oncology [facility] Radiation Therapy Center [address] [place] [address] documented in this encounter Plan of Treatment [...] Time Received Time / Laterality Volume Narrative [facility] - 01/15/2022 12:00 PM CDT Hayley Chang, RTT ? 01/15/2022 12:44 PM Initial Rad Onc Treatment Planning CT Si mulation Performed by: Aidee Sanchez M.D. Authorized by: Aidee Sanchez M.D. Aidee I. Daniel M.D. RADIATION ONCOLOGY ORDERABLE S Performing Organization Address City/State/ZIP Code Phon e Number [place] documented in this encounter Visit Diagnoses Diagnosis Malignant Neoplasm Of Lung Middle Lobe O r Bronchus (HCC) - Primary Secondary Malignant Neoplasm Bone (HCC) Malignant Neoplasm Of Lung Middle Lobe O r Bronchus (HCC) Secondary Malignant Neoplasm Bone (HCC) documented in this encounter
--- OUTSIDE RECORDS SUMMARY | 2022-03-02 20:15 | XMS_ITS | Encounter Summary ---
:1960 Author Organization [facility] Address [address] [place] [address] Care Team Providers Name Role Phone Unavailable Primary Care Provider Unavailable Encounter Details Date Type Department Care Team Description 11/24/2021 Hospital Encounter Department of Radiation Delilah Sanchez I., Oncology in [place] [address] [facility] [address] [place] [address] [phone] Social History Tobacco Use Types Packs/Day Years [...] do you attend temple or Never 2021 quaker services? Do you [...] or the highest technical, or vocational p [facility] degree you have received? Sex Assigned at Date Recorded Male 08/23/2021 10:27 AM CDT documented as of this encounter Medications at Time of Discharge Medication Sig Dispensed Refills Start Date End Date albuterol 90 Inhale 2 puffs. 0 11/20/2021 mcg/actuation inhaler albuterol 90 Inhale 2 puffs as 0 11/20/2021 mcg/actuation inhaler needed. nohkdce-btsnnqafdpfuc-ff Take 1 tablet by 0 ffeine (EXCEDRIN [...]
--- OUTSIDE RECORDS SUMMARY | 2022-03-02 20:15 | XMS_ITS | Encounter Summary ---
:1960 Author Organization [facility] Address [address] [place] [address] Care Team Providers Name Role Phone Unavailable Primary Care Provider Unavailable Encounter Details Date Type Department Care Team Description 01/26/2022 Hospital Encounter Department of Radiation Delilah Sanchez I., Oncology in [place] [address] [facility] [address] [place] [address] [phone] Social History Tobacco Use Types Packs/Day Years [...] or relatives? How often do you attend pentecostalism or Never 2021 oriental orthodox services? Do you belong to any clubs or No 08/23/2021 organizations such as pentecostalism groups, unions, fraternal or athletic groups, or [...] puffs as 0 11/20/2021 mcg/actuation inhaler needed. synrctb-hykzhldpksibj-ok Take 1 tablet by 0 ffeine (EXCEDRIN [...]
--- OUTSIDE RECORDS SUMMARY | 2022-03-02 20:15 | XMS_ITS | Encounter Summary ---
:1960 Author Organization [facility] Address [address] [place] [address] Care Team Providers Name Role Phone Unavailable Primary Care Provider Unavailable Encounter Details Date Type Department Care Team Description 11/23/2021 Hospital Encounter Department of Radiation Delilah Sanchez I., Oncology in [place] [address] [facility] [address] [place] [address] [phone] Social History Tobacco Use Types Packs/Day Years [...] do you attend hoahaoism or Never 2021 worship services? Do you belong to any clubs [...] or the highest technical, or vocational p [facility] degree you have received? Sex Assigned at Date Recorded Male 08/23/2021 10:27 AM CDT documented as of this encounter Medications at Time of Discharge Medication Sig Dispensed Refills Start Date End Date albuterol 90 Inhale 2 puffs. 0 11/20/2021 mcg/actuation inhaler albuterol 90 Inhale 2 puffs as 0 11/20/2021 mcg/actuation inhaler needed. xmfowlb-pllyaduxtgfcn-kv Take 1 tablet by 0 ffeine (EXCEDRIN [...]
--- OUTSIDE RECORDS SUMMARY | 2022-03-02 20:15 | XMS_ITS ---
:1960 Author Organization [facility] Address [address] [place] [address] Care Team Providers Name Role Phone Unavailable [...] Prescribed Total On Treated Fraction Dose Dose [id number] 01/27/2022 6 5 of 5 400 cGy 2,000 cGy [id number] 01/27/2022 6 5 of 5 400 cGy 2,000 cGy H5DjdfN 11/24/2021 13 5 of 5 400 cGy 2,000 cGy [id number] 11/11/2021 0 1 of 1 2,000 cGy 2,000 cGy Reference Point Last Treated On Elapsed Days Session Dose Total Dos e [id number] Lscap 01/27/2022 6 400 cGy 2,000 cGy [id number] Rfemur 01/27/2022 6 400 cGy 2,000 cGy dpv 2000x 11/24/2021 13 400 cGy 2,000 cGy dpv 2000x GRID 11/11/2021 0 2,000 cGy 2,000 cGy
--- OUTSIDE RECORDS SUMMARY | 2022-03-02 20:15 | XMS_ITS | Encounter Summary ---
:1960 Author Organization [facility] Address [address] [place] [address] Care Team Providers Name Role Phone Unavailable Primary Care Provider Unavailable Reason for Referral Outpatient (Routine) - Closed Specialty Diagnoses / Procedures Referred By Contact Refer red To Contact Radiation Oncology Aidee Sanchez [facility] M.D. [address] [place] [address] Referral ID Status Reason Start Date Expiration Date Visits Requ ested Visits Authorized [id number] Closed 11/19/2021 11/19/2022 1 1 Scheduling Instructions Coordinate for same day he sees Dr. Jeff bloom at [facility], thanks! Encounter Details Date Type Department Care Team Description 11/19/2021 Orders Only Department of Radiation Aidee Sanchez, [place]cology [place] [address] [place] [address] [phone] (Wo rk) Social History Tobacco Use Types [...] do you attend taoism or Never 2021 bahai services? Do you belong to any clubs [...] Name Type Priority Associated Diagnoses Order S [facility] Radiation Oncology Outpatient Referral Routine Ex pected: office visit 12/07/2021 (clinic) (Approximate), Expires: 11/19/2022 documented as of this encounter Visit Diagnoses Not on filedocumented in this encounter
--- OUTSIDE RECORDS SUMMARY | 2022-03-02 20:15 | XMS_ITS | Encounter Summary ---
:1960 Author Organization [facility] Address [address] [place] [address] Care Team Providers Name Role Phone Unavailable Primary Care Provider Unavailable Encounter Details Date Type Department Care Team Description 01/27/2022 Hospital Encounter Department of Radiation Delilah Sanchez I., Oncology in [place] [address] [facility] [address] [place] [address] [phone] Social History Tobacco Use Types Packs/Day Years [...] do you attend protestant or Never 2021 roman catholic services? Do you belong to any [...] or the highest technical, or vocational p [facility] degree you have received? Sex Assigned at Date Recorded Male 08/23/2021 10:27 AM CDT documented as of this encounter Medications at Time of Discharge Medication Sig Dispensed Refills Start Date End Date albuterol 90 Inhale 2 puffs. 0 11/20/2021 mcg/actuation inhaler albuterol 90 Inhale 2 puffs as 0 11/20/2021 mcg/actuation inhaler needed. qtjvwdq-lkccgbsgiuxeh-mj Take 1 tablet by 0 ffeine (EXCEDRIN [...]
--- OUTSIDE RECORDS SUMMARY | 2022-03-02 20:15 | XMS_ITS | Encounter Summary ---
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 [facility] Procedures Management Visit [address] [place] [phone] Referral ID Status Reason Start Date Expiration Date Visits V isits Requested Authorized [id number] Authorized 11/03/2021 11/03/2022 10 10 Encounter Details Date Type Department Care Team Description 11/24/2021 - Hospital Encounter Department of Leenstra, Malignan t Neoplasm 12/18/2021 Radiation Oncology Los Childress M.D. Of Right [facility] in [place], [facility] [address] [facility] Bronchus (HCC) [place], [place] [address] [facility] [address] [place], [place] [phone] [address] (Work) [phone] Social History Tobacco Use Types Packs/Day Years [...] or relatives? How often do you attend baptism or Never 2021 pentecostalism services? Do you belong to any clubs or No 08/23/2021 organizations such as baptism groups, unions, fraternal or athletic groups, or [...] puffs as 0 11/20/2021 mcg/actuation inhaler needed. ixjzvoj-jmlvorrqiealm-bq Take 1 tablet by 0 ffeine (EXCEDRIN [...] November 17 through November 19, 2021 at [facility] for postobstructive pneumonia. Treatment Course: 1xLung Plan ID Fractions Dose / Fraction (cGy) Dose Treated (cGy) Dose Planned (cGy) First Treatment Last Treatment Elapsed Days [id number] 199911/11/2021 11/11/2021 0 Q6KzrrL 400 199911/12/2021 11/24/2021 12 Course Summary 11/11/2021 [...] Cycle 1 pemetrexed and carboplatin administered at [facility] in [place]. 10/05/21: Cycle 2 pemetrexed, carboplatin, and pembrolizumab administered at [facility]. Pembrolizumab / PEMEtrexed / [...] treatment due to hospitalization #4 Admission to [facility] with postobstructive pneumonia from November 17, 2021 through November 19, 2021 The patient is doing well overall. We encouraged patient to rock picker DuoNeb prescription. [facility] will see patient next week to [...] our colleagues in Medical Oncology at [facility] and likely with Dr. Sanchez in December. He will continue with treatment as planned. Signed by: Los Wen M.D. 12/18/2021 12:41 PM CDT [facility] Radiation Therapy Center [address] [place] [address] documented in this encounter Plan of Treatment [...]
--- OUTSIDE RECORDS SUMMARY | 2022-03-02 20:15 | XMS_ITS | Encounter Summary ---
:1960 Author Organization [facility] Address [address] [place] [address] Care Team Providers Name Role Phone Unavailable Primary Care Provider Unavailable Encounter Details Date Type Department Care Team Description 11/19/2021 Clinical Communication Department of Aidee Sanchez Radiation Oncology in [place] [facility] [address] [facility] [address] [place] [phone] Social History Tobacco Use Types Packs/Day Years [...] or relatives? How often do you attend yazidi or Never 2021 druze services? Do you belong to any clubs or No 08/23/2021 organizations such as yazidi groups, unions, fraternal or athletic groups, or [...] radiation on Tuesday. He will see Dr. eWn that day. I will see him back in [address] Jarrett at [facility]. Her questions were answered; she was comfortable with this plan. documented in this encounter Plan of Treatment Not on filedocumented as of this encounter Visit Diagnoses Not on filedocumented in this encounter
--- OUTSIDE RECORDS SUMMARY | 2022-03-02 20:15 | XMS_ITS | Clinical Summary ---
:1960 Author Organization [facility] Address [address] [place] [address] Care Team Providers Name Role Phone Unavailable Primary Care Provider Unavailable Source Comments Patient records contain information from all sites at [facility]. For routine questions regarding patient records, call [phone] during business hours, M-F 8:00 AM - 5:00 PM Central Time. Record requests for emergency care only can be directed to [phone] at any time.[facility] Allergies No known active allergies Medications Medication [...] Tj Covarrubias 11/24/2021 - Hospital Encounter Radiation Lso Wen Malign ant Neoplasm 12/18/2021 Oncology Tj [...] do you attend hinduism or Never 2021 mu-ism services? Do you belong to any clubs or No 08/23/2021 organizations such as hinduism groups, unions, fraLimeRoad or athletic groups, or school groups? How [...] or Tdap) Medical Devices Implanted Type Area Perioperative Tech Device Shelf Model / Identifier Expiration Serial [...] of2 resultswithin the time period is included. [employer] Method Time Signature Course ID 2xMultiSit BANEGAS ARIA e Course Start 01/15/2022 BANEGAS ARIA Date 12:13 CDT Course End Date 02/05/2022 BANEGAS ARIA 11:23 CDT First Treatment 01/21/2022 BANEGAS ARIA Date 12:57 CDT Last Treatment 01/27/2022 BANEGAS ARIA Date 15:15 CDT Treatment 6 BANEGAS ARIA Elapsed Days Reference Point [id number] BANEGAS ARIA Lscap Dosage Given to 1999 BANEGAS ARIA Date cGy Reference Point [id number] BANEGAS ARIA Rfemur Dosage Given to 1999 BANEGAS ARIA Date cGy Plan ID [id number] BANEGAS ARIA Fractions 5 BANEGAS ARIA Treated to Date Planned Total 5 BAENGAS ARIA Fractions Prescribed Dose 400 BANEGAS ARIA Per Fraction Prescription 1999 BANEGAS ARIA Dose in cGy Plan Primary [id number] BANEGAS ARIA Reference Point Lscap Plan ID [id number] BANEGAS ARIA Fractions 5 BANEGAS ARIA Treated to Date Planned Total 5 BANEGAS ARIA Fractions Prescribed Dose 400 BANEGAS ARIA Per Fraction Prescription 1999 BANEGAS ARIA Dose in cGy Plan Primary [id number] BANEGAS ARIA Reference Point Rfemur Specimen (Source) [...] 5 resultswithin the time period is included. [employer] Method Time Signature Course ID 2xMultiSit BANEGAS ARIA e Course Start 01/15/2022 BANEGAS ARIA Date 12:13 CDT First Treatment 01/21/2022 BANEGAS ARIA Date 12:57 CDT Last Treatment 01/27/2022 BANEGAS ARIA Date 15:15 CDT Treatment 6 BANEGAS ARIA Elapsed Days Reference Point [id number] BANEGAS ARIA Lscap Dosage Given to 1999 BANEGAS ARIA Date cGy Session Dosage 400 BANEGAS ARIA Given Reference Point [id number] BANEGAS ARIA Rfemur Dosage Given to 1999 BANEGAS ARIA Date cGy Session Dosage 400 BANEGAS ARIA Given Plan ID [id number] BANEGAS ARIA Fractions 5 BANEGAS ARIA Treated to Date Planned Total 5 BANEGAS ARIA Fractions Prescribed Dose 400 BANEGAS ARIA Per Fraction Prescription 1999 BANEGAS ARIA Dose in cGy Plan Primary [id number] BANEGAS ARIA Reference Point Rfemur Plan ID [id number] BANEGAS ARIA Fractions 5 BANEGAS ARIA Treated to Date Planned Total 5 BANEGAS ARIA Fractions Prescribed Dose 400 BANEGAS ARIA Per Fraction Prescription 1999 BANEGAS ARIA Dose in cGy Plan Primary [id number] BANEGAS ARIA Reference Point Lscap Specimen (Source) [...] Typ e / Group Dates [employer]LL [employer] [id number] 2021-Prese [phone] METR O Indemnity BHAVANA BATEMAN [address] [place] [phone] MEDICARE MEDICARE A [id number] 2021-Prese [address] [place] [address]
--- OUTSIDE RECORDS SUMMARY | 2022-03-02 20:15 | XMS_ITS | Encounter Summary ---
:1960 Author Organization [facility] Address [address] [place] [address] Care Team Providers Name Role Phone Unavailable Primary Care Provider Unavailable Encounter Details Date Type Department Care Team Description 11/24/2021 Documentation Department of Radiation Aidee Sanchez I., [facility] [place] [address] [facility] [address] [place] [address] [phone] (Wo rk) Social History Tobacco Use Types [...] do you attend taoist or Never 2021 muslim services? Do you [...] the highest technical, or vocational p [facility] degree you have received? 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
--- OUTSIDE RECORDS SUMMARY | 2022-03-02 20:15 | XMS_ITS | Encounter Summary ---
:1960 Author Organization [facility] Address [address] [place] [address] Care Team Providers Name Role Phone Unavailable Primary Care Provider Unavailable Encounter Details Date Type Department Care Team Description 01/22/2022 Hospital Encounter Department of Radiation Delilah Sanchez I., Oncology in [place] [address] [facility] [address] [place] [address] [phone] Social History Tobacco Use Types Packs/Day Years [...] do you attend alevism or Never 2021 hoahaoism services? Do you [...] puffs as 0 11/20/2021 mcg/actuation inhaler needed. melvxry-qfxankxloauay-xp Take 1 tablet by 0 ffeine (EXCEDRIN [...]
--- OUTSIDE RECORDS SUMMARY | 2022-03-02 20:15 | XMS_ITS | Encounter Summary ---
:1960 Author Organization [facility] Address [address] [place] [address] Care Team Providers Name Role Phone Unavailable Primary Care Provider Unavailable Encounter Details Date Type Department Care Team Description 01/27/2022 Documentation Department of Radiation Aidee Sanchez I., [facility] [place] [address] [facility] [address] [place] [address] [phone] (Wo rk) Social History Tobacco Use Types [...] or relatives? How often do you attend druze or Never 2021 restorationist services? Do you belong to any clubs or No 08/23/2021 organizations such as druze groups, unions, fraternal or athletic groups, or [...] or the highest technical, or vocational p [facility] degree you have received? 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
--- OUTSIDE RECORDS SUMMARY | 2022-03-02 20:15 | XMS_ITS | Encounter Summary ---
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 [facility] Procedures Management Visit [address] [place] [phone] Referral ID Status Reason Start Date Expiration Date Visits V isits Requested Authorized [id number] Authorized 01/15/2022 01/15/2023 10 10 Encounter Details Date Type Department Care Team Description 01/26/2022 Hospital Encounter Department of Aidee Sanchez Neoplasm Of Lung Middle Lobe Or Bronchus (HCC); Radiation Oncology Tj Covarrubias Secondary Malignant Neoplasm Bone (HCC) in [place], [address] [place] [address] [place] 1821 [facility] [address] [place], [place] [phone] [address] (Work) [phone] Social History Tobacco Use Types Packs/Day Years [...] do you attend episcopal or Never 2021 scientology services? Do you [...] or the highest technical, or vocational p [facility] degree you have received? Sex Assigned at [...] puffs as 0 11/20/2021 mcg/actuation inhaler needed. jurzlwe-ekmgswrqtscyn-fk Take 1 tablet by 0 ffeine (EXCEDRIN [...] (cGy) First Treatment Last Treatment Elapsed Days A5WxykbzpH 400 1200 199901/21/2022 01/25/2022 4 T6WhqzwN 400 1200 199901/21/2022 01/25/2022 4 Course Summary [...] treatment due to hospitalization #4 Admission to [facility] with postobstructive pneumonia from November [...]
--- OUTSIDE RECORDS SUMMARY | 2022-03-02 20:15 | XMS_ITS | Encounter Summary ---
:1960 Author Organization [facility] Address [address] [place] [address] Care Team Providers Name Role Phone Unavailable Primary Care Provider Unavailable Reason for Visit Reason Comments Follow-up Encounter Details Date Type Department Care Team Description 12/09/2021 Clinical Communication Department of Aidee Sanchez Radiation Oncology in Tj Covarrubias [place], [place] [address] [facility] [address] [place] [address] [phone] Social History Tobacco Use Types Packs/Day Years [...] do you attend holiness or Never 2021 jew services? Do you [...] patient to answer his questions. Phone number: [phone] Is it okay to leave a voicemail on answering machine with test results? Yes Pharmacy (if medication related): N/A documented in this encounter Plan of Treatment Not on filedocumented as of this encounter Visit Diagnoses Not on filedocumented in this encounter
--- OUTSIDE RECORDS SUMMARY | 2022-03-02 20:15 | XMS_ITS | Encounter Summary ---
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 [facility] Region Procedures Initial Rad Onc Treatment Planning CT Simulation [address] [place], [place] [address] Referral ID Status Reason Start Date Expiration Date Visits Requ ested Visits Authorized [id number] Closed 01/15/2022 01/15/2023 1 1 Encounter Details Date Type Department Care Team Description 01/15/2022 Hospital Encounter Department of Aidee Sanchez Neoplasm Of Lung Middle Lobe Or Bronchus (HCC); Radiation Oncology I., M.D. Secondary Malignant Neoplasm Bone (HCC) in [place], [facility]note 2] [address] [place], [place] 1821 [facility] [address] [place], [place] [phone] [address] (Work) [phone] Social History Tobacco Use Types Packs/Day Years [...] do you attend hoahaoism or Never 2021 baptism services? Do you [...] puffs as 0 11/20/2021 mcg/actuation inhaler needed. dgjlzzr-axnqstajewkuq-zj Take 1 tablet by 0 ffeine (EXCEDRIN [...] imaging was appropriate and completed without incident. 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
--- OUTSIDE RECORDS SUMMARY | 2022-03-02 20:15 | XMS_ITS | Encounter Summary ---
:1960 Author Organization [facility] Address [address] [place] [address] Care Team Providers Name Role Phone Unavailable Primary Care Provider Unavailable Encounter Details Date Type Department Care Team Description 01/25/2022 Hospital Encounter Department of Radiation Delilah Sanchez I., Oncology in [place] [address] [place] [address] [place] [address] [phone] Social History Tobacco Use Types Packs/Day Years [...] do you attend druze or Never 2021 islam services? Do you belong to any clubs [...] or the highest technical, or vocational p [facility] degree you have received? Sex Assigned at Date Recorded Male 08/23/2021 10:27 AM CDT documented as of this encounter Medications at Time of Discharge Medication Sig Dispensed Refills Start Date End Date albuterol 90 Inhale 2 puffs. 0 11/20/2021 mcg/actuation inhaler albuterol 90 Inhale 2 puffs as 0 11/20/2021 mcg/actuation inhaler needed. imydjvc-iuokqubavlqsa-am Take 1 tablet by 0 ffeine (EXCEDRIN [...]
--- OUTSIDE RECORDS SUMMARY | 2022-03-02 20:15 | XMS_ITS | Encounter Summary ---
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 [facility] Procedures Management Visit [address] [place] [phone] Referral ID Status Reason Start Date Expiration Date Visits V isits Requested Authorized [id number] Authorized 11/03/2021 11/03/2022 10 10 Encounter Details Date Type Department Care Team Description 11/23/2021 Hospital Encounter Department of Los Wen Neoplasm Radiation Oncology Tj Childress Of Right Main in [place], [address] [facility] Bronchus (HCC) [place], [place] 1821 [facility] [address] [place], [place] [phone] [address] (Work) [phone] Social History Tobacco Use Types Packs/Day Years [...] or relatives? How often do you attend catholic or Never 2021 druze services? Do you belong to any clubs or No 08/23/2021 organizations such as catholic groups, unions, fraternal or athletic groups, [...] puffs as 0 11/20/2021 mcg/actuation inhaler needed. mughick-jbnzrrcwhrohz-fz Take 1 tablet by 0 ffeine (EXCEDRIN [...] (cGy) First Treatment Last Treatment Elapsed Days F1GlytMDIAG 199911/11/2021 11/11/2021 0 H0PnwxP 4 / 5 400 1600 199911/12/2021 11/23/2021 [...] through November 16, 2021 #4 Ad[facility] [...] will get him connected again over at [facility] hopefully later this week. He understands that if he has recrudescence of his chest pain or tachycardia, he should present to the emergency room. The patient and his wifeverbalized satisfaction with this plan. Signed by: Los Wen M.D. 11/23/21 11:57 AM CDT [facility] [address] [place] [address] documented in this encounter Miscellaneous Notes Addendum [...]
--- OUTSIDE RECORDS SUMMARY | 2022-03-02 20:16 | XMS_ITS | Encounter Summary ---
:1960 Author Organization [facility] Address [address] [place] [address] Care Team Providers Name Role Phone Unavailable Primary Care Provider Unavailable Encounter Details Date Type Department Care Team Description 11/13/2021 Hospital Encounter Department of Radiation Los Flores M.D. [address] [place] [address] Oncology in [facility] Aidee Sanchez M.D. [address] [place] [address] [phone] Social History Tobacco Use Types [...] do you attend lutheran or Never 2021 catholic services? Do you [...]
--- OUTSIDE RECORDS SUMMARY | 2022-03-02 20:16 | XMS_ITS | Encounter Summary ---
:1960 Author Organization [facility] Address [address] [place] [address] Care Team Providers Name Role Phone Unavailable Primary Care Provider Unavailable Reason for Visit Reason Comments Guardant 360 results Encounter Details Date Type Department Care Team Description 09/22/2021 Clinical Communication Department of Donna Mcqueen Oncology in m[place] Julian [facility] [place] M.S.N [address] [facility] [address] [place] [phone] Social History Tobacco Use Types Packs/Day Years [...] do you attend buddhist or Never 2021 latter day services? Do you belong to any clubs [...]
--- OUTSIDE RECORDS SUMMARY | 2022-03-02 20:16 | XMS_ITS | Encounter Summary ---
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 [facility] Procedures MR Brain without and with IV Contrast MR Brain with IV Contrast VA MRI BRAIN W CNTRST [address] [place], [place] [address] Referral ID Status Reason Start Date Expiration Date Visits V isits Requested Authorized [id number] Modified 08/27/2021 08/27/2022 1 1 Order Encounter Details Date Type Department Care Team Description 09/10/2021 Hospital Encounter Department of Catia Moore Neoplasm Radiology, [place] Radha B, M.D. Of Bronchus And Lung North, in 200 [facility] Multiple Site Left [place], [place] ([facility] [place] [address] 200 [facility] [phone] [place], [place] (Work) [phone] Social History Tobacco Use Types Packs/Day Years [...] you attend latter day or Never 2021 religion services? Do you belong to any clubs [...] or the highest technical, or vocational p [facility] degree you have received? Sex Assigned at [...]
--- OUTSIDE RECORDS SUMMARY | 2022-03-02 20:16 | XMS_ITS | Encounter Summary ---
:1960 Author Organization [facility] Address [address] [place] [address] Care Team Providers Name Role Phone Unavailable Primary Care Provider Unavailable Encounter Details Date Type Department Care Team Description 11/18/2021 Clinical Communication Department of Aidee Sanchez Radiation Oncology in Tj Covarrubias [facility] [address] [facility] 18[address] [place] [phone] Social History Tobacco Use Types Packs/Day Years [...] do you attend protestant or Never 2021 voodoo services? Do you [...] phone call from Dr. Contreras, Mr. Norris's linoleum mechanic. We discussed his care. I explained GRID [...] a CT chest on October 30 at [facility]. I don't think the November 17 CT looks very different. He has my number and can call me with more questions. documented in this encounter Plan of Treatment Not on filedocumented as of this encounter Visit Diagnoses Not on filedocumented in this encounter
--- OUTSIDE RECORDS SUMMARY | 2022-03-02 20:16 | XMS_ITS | Encounter Summary ---
:1960 Author Organization [facility] Address [address] [place] [address] Care Team Providers Name Role Phone Unavailable Primary Care Provider Unavailable Reason for Visit Reason Comments sx headache/body aches Encounter Details Date Type Department Care Team Description 09/18/2021 Clinical Communication Department of Zoila Infante headache/body Oncology in [place], [facility], [facility] [address] [place], [place] [address] [facility] [address] [place] [address] Social History Tobacco Use Types Packs/Day Years [...] ok for headache - next treatment in [place] Disposition/Recommendation: self-care appropriate at this time, patient [...] on 09/15. Thank you, Hollie Medical Admin. Casket Trimmer RST ONC NINFA FLORES AA POD 3 documented in this encounter Plan of Treatment Not on filedocumented as of this encounter Visit Diagnoses Not on filedocumented in this encounter
--- OUTSIDE RECORDS SUMMARY | 2022-03-02 20:16 | XMS_ITS | Encounter Summary ---
:1960 Author Organization [facility] Address [address] [place] [address] Care Team Providers Name Role Phone Unavailable Primary Care Provider Unavailable Reason for Referral Outpatient (Routine) - Authorized Specialty Diagnoses / Procedures Referred By Contact Refer red To Contact Radiation Oncology Aidee Sanchez [facility] Jey Spencer [address] [place] [address] Referral ID Status Reason Start Date Expiration Date Visits V isits Requested Authorized [id number] Authorized 11/03/2021 11/03/2022 10 10 Radiation Therapy (Routine) - Authorized Specialty Diagnoses / Procedures Referred By Contact Refer red To Contact Diagnoses 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 [facility] Region Procedures Initial Rad Onc Treatment Planning CT Simulation [address] [place] [address] Referral ID Status Reason Start Date Expiration Date Visits Requ ested Visits Authorized [id number] Closed 11/03/2021 11/03/2022 1 1 Encounter Details Date Type Department Care Team Description 11/03/2021 Orders Only Department of Aidee Sanchez Malignant N eoplasm Of Radiation Oncology in Tj Covarrubias Right Main Bronchus [place], [facility] a [address] [facility] (HCC) (Primary Dx) [address] [place] [address] [phone] Social History Tobacco Use Types Packs/Day Years [...] do you attend episcopalian or Never 2021 denominational services? Do you [...] Organization Address City/State/ZIP Code Phon e Number [facility] documented in this encounter Visit Diagnoses Diagnosis Malignant Neoplasm Of Right Main Bronchu s (HCC) - Primary Malignant Neoplasm Of Right Main Bronchu s (HCC) documented in this encounter
--- OUTSIDE RECORDS SUMMARY | 2022-03-02 20:16 | XMS_ITS | Encounter Summary ---
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 [address] [place] [phone] Referral ID Status Reason Start Date Expiration Date Visits Requ ested Visits Authorized [id number] Closed 09/10/2021 09/10/2022 1 1 Encounter Details Date Type Department Care Team Description 09/10/2021 Hospital Encounter Department of Deepthi Mcqueen Neoplasm Of Right Main Bronchus (HCC); Radiology, Gonda N, OUTCOMES ANALYST, C.N.P., Edema L ocalized ; Building, in M.S.N. Edema Localized [place], [address] [place], [place] [address] [facility] [address] [place], [place] [phone] (Work) [phone] Social History Tobacco Use Types Packs/Day Years [...] do you attend yarsani or Never 2021 restorationism services? Do you [...] man agement can be found on the [employer] site. Link [email or web address]/topic/clinical-[email or web address] Procedure Note Lele Harrison M.B., B.Ch. - [...] man agement can be found on the [employer] site. Link [email or web address]/clinical-answers/[email or web address]/[email or web address] IMPRESSION: Negative for acute DVT. Deepthi Mcqueen APRN, C.N.P., M.S.N. IMG US PROCEDUR ES documented in this encounter Visit Diagnoses Diagnosis Malignant Neoplasm Of Right Main Bronchu s (HCC) Edema Localized documented in this encounter
--- OUTSIDE RECORDS SUMMARY | 2022-03-02 20:16 | XMS_ITS | Encounter Summary ---
:1960 Author Organization [facility] Address [address] [place] [address] Care Team Providers Name Role Phone Unavailable Primary Care Provider Unavailable Reason for Visit Reason Comments sx dyspnea sx worsening cough Encounter Details Date Type Department Care Team Description 10/27/2021 Clinical Communication Department of Zoila Infante sx dyspnea; sx Oncology in D, R.N. worsening cough [place], [facility] [address] [place], [place] [address] [facility] [address] [place] [address] Social History Tobacco Use Types Packs/Day Years [...] do you attend gnosticism or Never 2021 mandaeism services? Do you [...] call today. Thank you, Hollie Medical Admin. Glue Clamp Operator RST ONC NINFA MED AA POD 3 documented in this encounter Plan of Treatment Not on filedocumented as of this encounter Visit Diagnoses Not on filedocumented in this encounter
--- OUTSIDE RECORDS SUMMARY | 2022-03-02 20:16 | XMS_ITS | Encounter Summary ---
:1960 Author Organization [facility] Address [address] [place] [address] Care Team Providers Name Role Phone Unavailable Primary Care Provider Unavailable Encounter Details Date Type Department Care Team Description 11/17/2021 Clinical Communication Department of Aidee Sanchez Radiation Oncology in Tj Covarrubias [facility] [address] [facility] 1821 [place] [phone] Social History Tobacco Use Types Packs/Day Years [...] or relatives? How often do you attend samaritan or Never 2021 advent services? Do you belong to any clubs or No 08/23/2021 organizations such as samaritan groups, unions, fraternal or athletic groups, or [...] say that the patient was admitted to [facility] yesterday with breathing difficulties. He will not be in for treatment today and wanted the team to know what is going on. Phone number: [phone] Is it okay to leave a voicemail [...]
--- OUTSIDE RECORDS SUMMARY | 2022-03-02 20:16 | XMS_ITS | Encounter Summary ---
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 [address] [place] [address] 200 [place] [phone] Referral ID Status Reason Start Date Expiration Date Visits V isits Requested Authorized [id number] Authorized 09/10/2021 09/10/2022 5 5 Encounter Details Date Type Department Care Team Description 09/15/2021 Education Department of Oncology Deepthi Mcqueen APRN, C.NKatharine, M.S.N. [address] [place] [phone] Malignant Neoplasm Of in Franc, Estefany Castillo R.N. [address] [place] [phone] Right Main Bronchus [place] (HCC) [address] [place] [phone] Social History Tobacco Use Types Packs/Day Years [...] or relatives? How often do you attend methodist or Never 2021 voodoo services? Do you belong to any clubs or No 08/23/2021 organizations such as methodist groups, unions, fraternal or athletic groups, or [...] team. He will betransitioned his care to [place] for the next cycle and already has [...] completed today. I did explain that the [place] team will have to review that with [...]
--- OUTSIDE RECORDS SUMMARY | 2022-03-02 20:16 | XMS_ITS | Encounter Summary ---
:1960 Author Organization [facility] Address [address] [place] [address] Care Team Providers Name Role Phone Unavailable Primary Care Provider Unavailable Reason for Visit Reason Comments Triage Internal referral from Sonido angela Encounter Details Date Type Department Care Team Description 09/01/2021 Clinical Communication Department of Javon Gastelum (Internal Oncology in [place] Hickey APRN, referral from Bessy Bruner, M.S. Pulmonary) [address] [place] [phone] Social History Tobacco Use Types Packs/Day Years [...] do you attend sikhism or Never 2021 sikh services? Do you belong to any clubs [...]
--- OUTSIDE RECORDS SUMMARY | 2022-03-02 20:16 | XMS_ITS | Encounter Summary ---
:1960 Author Organization [facility] Address [address] [place] [address] Care Team Providers Name Role Phone Unavailable Primary Care Provider Unavailable Encounter Details Date Type Department Care Team Description 09/14/2021 Education Department of Patient Gabriele Juarez M.D., Ph.D. [address] [place] [address] Malignant Neoplasm Of Education in [facility], Mikayla ColbertSAllenN., R.N. [address] [place] [address] Bronchus And Lung [place] Multiple Site Left [address] [place] [address] ([facility]) [place] [phone] Social History Tobacco Use Types Packs/Day Years [...] do you attend confucianism or Never 2021 buddhism services? Do you [...]
--- OUTSIDE RECORDS SUMMARY | 2022-03-02 20:16 | XMS_ITS | Encounter Summary ---
:1960 Author Organization [facility] Address [address] [place] [address] Care Team Providers Name Role Phone Unavailable Primary Care Provider Unavailable Encounter Details Date Type Department Care Team Description 09/14/2021 Admin Visit Department of Oncology in [place], [place] [address] [place] [address] Social History Tobacco Use Types Packs/Day [...] do you attend jew or Never 2021 sabianist services? Do you [...]
--- OUTSIDE RECORDS SUMMARY | 2022-03-02 20:16 | XMS_ITS | Encounter Summary ---
:1960 Author Organization [facility] Address [address] [place] [address] Care Team Providers Name Role Phone Unavailable Primary Care Provider Unavailable Reason for Visit Appointment Request (Routine) - Closed Specialty Diagnoses / Procedures Referred By Contact Refer red To Contact Radiation Oncology Diagnoses Malignant Neoplasm Of Bronchus And Lung Right (HCC) Sara Jenkins APRN [address] [place] [phone] Referral ID Status Reason Start Date Expiration Date Visits Requ ested Visits Authorized [id number] Closed 11/04/2021 11/04/2022 1 1 Encounter Details Date Type Department Care Team Description 11/05/2021 Hospital Encounter Department of [place] Neoplasm Radiation Oncology Tj Childress Of Lung Middle Lobe in [address] Or Bronchus (HCC) [place], [place] (Primary Dx) [address] [facility] [address] [place], [place] [phone] [address] (Work) [phone] Social History Tobacco Use Types Packs/Day Years [...] do you attend buddhist or Never 2021 holiness services? Do you belong to any clubs or No 08/23/2021 organizations such as buddhist groups, unions, fraDGIT or athletic groups, or school groups? How [...] Bronchus (HCC) SUPERVISED BY: Los Wen M.D. ([id number]) HISTORY OF PRESENT ILLNESS Mr. Hector Norris [...] 1 pemetrexed and carboplatin administered at [facility] in [place]. 10/05/21: Cycle 2 pemetrexed, carboplatin, and pembrolizumab administered at [facility]. Pembrolizumab / PEMEtrexed / CARBOplatin [...] case was reviewed by Dr. Roque in [place], who previously saw the patient, as well as Dr. Sanchez in [place]. We discussed the recommendation for palliative radiation [...] P.A.-C., M.S. 11/05/2021 1:11 PM CDT [facility] [address] [place] [address] Associated attestation - [place] Wen M.D. - [...] Wen M.D. 11/05/21 7:01 PM CDT [facility] [place] documented in this encounter Miscellaneous Notes Addendum [...]
--- OUTSIDE RECORDS SUMMARY | 2022-03-02 20:16 | XMS_ITS | Encounter Summary ---
:1960 Author Organization [facility] Address [address] [place] [address] Care Team Providers Name Role Phone Unavailable Primary Care Provider Unavailable Encounter Details Date Type Department Care Team Description 11/16/2021 Hospital Encounter Department of Radiation Los Flores M.D. [address] [place] [address] Oncology in [facility] Aidee Sanchez M.D. [address] [place] [address] [address] Social History Tobacco Use Types [...] do you attend mandaeism or Never 2021 tenriism services? Do you belong to any clubs [...]
--- OUTSIDE RECORDS SUMMARY | 2022-03-02 20:16 | XMS_ITS | Encounter Summary ---
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 [facility] Procedures Initial Rad Onc Treatment Planning CT Simulation 200 [place] [address] Referral ID Status Reason Start Date Expiration Date Visits Requ ested Visits Authorized [id number] Closed 11/03/2021 11/03/2022 1 1 Encounter Details Date Type Department Care Team Description 11/05/2021 Hospital Encounter Department of Ryley Sanchez M.D. [address] [place] [phone] Malignant Neoplasm Radiation Oncology [place] Wen M.D. [address] [place] [address] Of Right Main in [place], [facility] [place] [address] [place] [address] Social History Tobacco Use Types Packs/Day Years [...] do you attend taoism or Never 2021 hoahaoism services? Do you [...] planning. CT images were transferred to the Zones treatment planning system, after a reference isocenter was determined and marked. Segmentation and treatment planning will take place priorto treatment delivery. Patient set up and imaging was appropriate and completed without incident. Door To Door Selling Agent use:No documented in this encounter Plan of [...] Time Received Time / Laterality Volume Narrative [facility] - 11/05/2021 11:03 AM CDT Hayley Bergmna, RTT ? 11/05/2021 11:03 AM Initial Rad Onc Treatment Planning CT Si mulation Date/Time: 11/05/2021 11:03 AM Performed by: Los Wen M.D. Authorized by: Aidee Sanchez M.D. Aidee Sanchez M.D. RADIATION ONCOLOGY ORDERABLE S Performing Organization Address City/State/ZIP Code Phon e Number [facility] na documented in this encounter Visit Diagnoses Diagnosis Malignant Neoplasm Of Right Main Bronchu s (HCC) documented in this encounter
--- OUTSIDE RECORDS SUMMARY | 2022-03-02 20:16 | XMS_ITS | Encounter Summary ---
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) [facility] 200 [place] [address] Referral ID Status Reason Start Date Expiration Date Visits Requ ested Visits Authorized [id number] Closed 09/01/2021 09/01/2022 1 1 Scheduling Instructions Patient would like to be called once norbert ointments scheduled Reason for Visit Outpatient (Routine) - Closed Specialty Diagnoses / Procedures Referred By Contact Refer red To Contact Radiation Oncology Diagnoses 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 Do you [...] M.D. SUPERVISING PHYSICIAN Lamar Roque MD, PhD ([phone]). 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 Asked to see patient with a recently diagnosed stage IIIB, [id number] vs stage IIIC [id number] right middle lobe lung adenocarcinoma for evaluation for radiation therapy. HISTORY OF PRESENT ILLNESS: History was obtained from the patient and his . Mr. Hector Norris is a 61-year-old male who was recently diagnosed with astage IIIB, [id number] middle lobe lung adenocarcinoma. He is a [...] He is interested in receiving treatment at [facility] as well as potential radiation therapy at our outreach radiation oncology practice in [place], [place]. REVIEW OF SYSTEMS: A complete 14-point [...] and Family: Once a week ??? Attends Moravian Services: Never ??? 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 FAMILY HISTORY: ??? Cancer-prostate Father ??? Lung [...] with a recent diagnosis a stage IIIB, [id number] vs stage IIIC [id number] right middle lobe lung adenocarcinoma for evaluation [...] at our outreach radiation oncology practice in [place], [place]. I stated that we could refer him to them when it is time to proceed with radiation therapy. We also discussed the potential for proton beam radiation therapy as an option for treatment if necessary which could only be done in [place]. I informed them of the potential acute [...] he is interested in treatment at our [place] facility. We will see Mr. Norris again after 2-3 months of systemic therapy with restaging imaging to reassess him for chemoradiation. Lamar Roque MD, PhD Turret Punch Operator Abrading Machine Tender Department of Radiation Oncology [facility] documented in this encounter Miscellaneous Notes [...]
--- OUTSIDE RECORDS SUMMARY | 2022-03-02 20:16 | XMS_ITS | Encounter Summary ---
:1960 Author Organization [facility] Address [address] [place] [address] Care Team Providers Name Role Phone Unavailable Primary Care Provider Unavailable Encounter Details Date Type Department Care Team Description 11/12/2021 Hospital Encounter Department of Radiation Los Flores M.D. [address] [place] [address] Oncology in [facility] Aidee Sanchez M.D. [address] [place] [address] [address] Social History Tobacco Use Types [...]
--- OUTSIDE RECORDS SUMMARY | 2022-03-02 20:16 | XMS_ITS | Encounter Summary ---
:[address] [facility] Address [address] [place] [address] Care Team Providers Name Role Phone Unavailable Primary Care Provider Unavailable Encounter Details Date Type Department Care Team Description 09/10/2021 Lab Department of Laboratory Deepthi Mcqueen, Malignant Neoplasm Of Medicine and Pathology, Deanna MONTENEGRO NAllenP., M.S.N. Right Main Bronchus [facility], in [address] [place] [address] ([facility]) [place], [place] [address] [place] [address] [place] [address] [phone] Social History Tobacco Use Types Packs/Day Years [...] do you attend bahai or Never 2021 faith services? Do you [...] Name Priority Date/Time Associated Diagnosis Comme nts [id number] CDX Routine 09/10/2021 3:44 PM Malignant Neoplasm Of Results for this CDT Right Main Bronchus procedur e are in (HCC) the results section. documented in this encounter Results [id number] CDx - Sent Out Lab (09/10/2021 3:44 PM CDT) [facility] Method Time Signature [id number] SEE COMMENT 09/22/2021 GUAR CDx 10:40 AM CDT Comment: For final report, select Lab-Send Out L ab Results hyperlink below. Specimen Anatomical Collection Method Collection Time Receive d Time (Source) Location / / Volume Laterality Varies (Blood, 09/10/2021 3:44 PM 022 8:13 Venous) CDT AM CDT Narrative [facility] - 09/22/2021 10:40 AM CD T Specimen Information: Specimen ID: [id number] Specimen Type: Varies Specimen Collection Start Date: 09/11/19 ??3:44 PM Specimen Received Date: 09/11/2021 ??8:1 3 AM Specimen ID: [id number] Specimen Type: Varies Specimen Collection Start Date: 09/11/19 ??3:44 PM Specimen Received Date: 09/11/2021 ??8:1 3 AM Deepthi Mcqueen APRN, C.N.P., M.S.N. LAB GENETIC CURT BHAVNA Performing Organization Address City/State/ZIP Code Phon e Number [facility] [address] [place] [address] GUAR [place], [place] [address] [address] documented in this encounter Visit Diagnoses Diagnosis Malignant Neoplasm Of Right Main Bronchu s (HCC) documented in this encounter
--- OUTSIDE RECORDS SUMMARY | 2022-03-02 20:16 | XMS_ITS | Encounter Summary ---
:1960 Author Organization [facility] Address [address] [place] [address] Care Team Providers Name Role Phone Unavailable Primary Care Provider Unavailable Encounter Details Date Type Department Care Team Description 09/04/2021 Orders Only Division of Pulmonary Radha Moore Malignant Neoplasm Of Medicine in B, MAllenD. Bronchus And Lung [place], [place] [address] [facility] Multiple Site Right [address] [place], [place] (HCC) (Primary Dx) [place] [phone] Social History Tobacco Use Types Packs/Day Years [...] do you attend mormonism or Never 2021 denominational services? Do you [...]
--- OUTSIDE RECORDS SUMMARY | 2022-03-02 20:16 | XMS_ITS | Encounter Summary ---
:1960 Author Organization [facility] Address [address] [place] [address] Care Team Providers Name Role Phone Unavailable Primary Care Provider Unavailable Encounter Details Date Type Department Care Team Description 11/11/2021 Hospital Encounter Department of Radiation Ruperto Wen, Oncology in [place] [address] [facility] [address] [place] [address] [phone] Social History Tobacco Use Types Packs/Day Years [...] do you attend methodist or Never 2021 muslim services? Do you [...] or the highest technical, or vocational p located within [facility] degree you have received? Sex [...]
--- OUTSIDE RECORDS SUMMARY | 2022-03-02 20:16 | XMS_ITS | Encounter Summary ---
:1960 Author Organization [facility] Address [address] [place] [address] Care Team Providers Name Role Phone Unavailable Primary Care Provider Unavailable Reason for Referral Specialty Diagnoses / Procedures Referred By Contact Refer red To Contact Deepthi Mcqueen APRN, [facility] C.N.Giancarlo, M.S.N. 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 Oncology BTj 200 [place] [address] Referral ID Status Reason Start Date Expiration Date Visits Requ ested Visits Authorized [id number] Closed 09/01/2021 09/01/2022 1 1 Encounter Details Date Type Department Care Team Description 09/10/2021 Comprehensive Visit Department of Nell Juarez nt Neoplasm Of Right Main Bronchus (HCC) (Primary Dx); Oncology in [facility], Malignant Neop lasm Of Bronchus And Lung Multiple Site Right (HCC); [place], [place] Tj, Ph.D. Edema Localized 200 [facility] 200 [place] [phone] Social History Tobacco Use Types Packs/Day Years [...] do you attend zoroastrianism or Never 2021 zoroastrianism services? Do you [...] or the highest technical, or vocational p [employer] degree you have received? Sex Assigned at [...] file. REQUESTING PROVIDER Radha Moore M.D. [address] [place] [phone] LOCAL ONCOLOGIST No care recruiting team lead to display PRIMARY GREEN ISLE ONCOLOGIST Primary Oncology Team (Lung Care Team [...] turkey at time of diagnosis. Originally from [place], has been in [place] for the past [...] immunohistochemistry studies (clone 22C3, [employer] [place], [place], [place]; using a proprietary detection system) (C1): [...] reagent. Its performance characteristics were determined by [facility] in a manner consistent with CLIA requirements. [...] cycle 1 next week Consult medical oncology [place] for continuity of care closer to home. I have requested from scheduling for him to start treatment here next week to allow for more time for him to establish with the care team at [place] for subsequent cycles. Consider adding pembrolizumab with [...] physicians, nurse practitioners/physician assistants, nurses and other child support case officer that specialize in this cancer. Also, reviewed [...] as of this encounter Results Thyroid Function [place] (09/15/2021 6:39 AM CDT) athologist Signature TSH, Sensitive 0.4 0.3 - 4.2 09/15/2021 DTL mIU/L 7:58 AM CDT Specimen Anatomical Collection Method Collection Time Receive d Time (Source) Location / / Volume Laterality Blood (Blood, 09/15/2021 6:39 AM 09/16/19 7:23 Venous) CDT AM CDT Deepthi Mcqueen APRN, C.N.P., M.S.N. LAB BLOOD ADD-O N Performing Organization Address City/State/ZIP Code Phon e Number [facility] - 200 [place], [place] [address] [facility] [place] [address] Laboratories-[facility] 200 [facility] (ABNORMAL) Comprehensive Metabolic Panel (09/15/2021 6:39 AM [...] 09/15/2021 DTL Black/ mL/min/BSA 7:58 AM CDT Swedish Comment: ----ADDITIONAL INFORMATION---- Estimated GFR calculated using [...] City/State/ZIP Code Phon e Number [facility] - [address] [place], [place] [address] [facility] [place] [address] [facility] [address] (ABNORMAL) CBC with Differential, Blood (09/15/2021 6:39 AM CDT) [facility] Method Time Signature Hemoglobin 12.0 (L) 13.2 [...] City/State/ZIP Code Phon e Number [facility] - 200 [address] [place], [place] [address] [facility] [place] [address] [facility] [address] [place] [address] CDx - Sent Out Lab (09/10/2021 3:44 PM CDT) [facility] gist Method Time Signature [place] [address] SEE COMMENT 09/22/2021 GUAR CDx 10:40 AM CDT Comment: For final report, select Lab-Send Out L ab Results hyperlink below. Specimen Anatomical Collection Method Collection Time Receive d Time (Source) Location / / Volume Laterality Varies (Blood, 09/10/2021 3:44 PM 022 8:13 Venous) CDT AM CDT Narrative [facility] - 09/22/2021 10:40 AM CD T Specimen Information: Specimen ID: [id number] Specimen Type: Varies Specimen Collection Start Date: 09/11/19 ??3:44 PM Specimen Received Date: 09/11/2021 ??8:1 3 AM Specimen ID: [id number] Specimen Type: Varies Specimen Collection Start Date: 09/11/19 ??3:44 PM Specimen Received Date: 09/11/2021 ??8:1 3 AM Deepthi Mcqueen APRN C.N.PAllen, M.S.N. LAB GENETIC [facility] Performing Organization Address City/State/ZIP Code Phon e Number [facility] [address] [place] [address] GU[place], [place] [address] [address] [place] Lower Extremity Veins Left (09/10/2021 3:13 [...] man agement can be found on the [place] site. Link [email or web address]/topic/clinical-answers/[email or web address]/[email or web address] [address] Procedure Note Lele Harrison M.B., B.Ch. - [...] man agement can be found on the [employer] site. Link [email or web address]/[email or web address]/[email or web address]/[email or web address] [address] IMPRESSION: Negative for acute DVT. Deepthi Mcqueen [...]
--- OUTSIDE RECORDS SUMMARY | 2022-03-02 20:16 | XMS_ITS | Encounter Summary ---
:1960 Author Organization [facility] Address [address] [place] [address] Care Team Providers Name Role Phone Unavailable Primary Care Provider Unavailable Reason for Referral Specialty Diagnoses / Procedures Referred By Contact Refer red To Contact Gabriele Juarez M.D., [facility] Ph.D. [address] [place] [phone] Referral ID Status Reason Start Date Expiration Date Visits Requ ested Visits Authorized Reason for Visit Reason Comments NT needed 09/15 8am Encounter Details Date Type Department Care Team Description 09/10/2021 Clinical Communication Department of HUGO Juarez 09/15 8am Oncology in [place] M.D., Ph.D. [address] [place] [phone] Social History Tobacco Use Types Packs/Day Years [...] do you attend mu-ism or Never 2021 mosque services? Do you belong to any clubs or No 08/23/2021 organizations such as mu-ism groups, unions, fraTuneWiki or athletic groups, or school groups? How [...]
--- OUTSIDE RECORDS SUMMARY | 2022-03-02 20:16 | XMS_ITS | Encounter Summary ---
:1960 Author Organization [facility] Address [address] [place] [address] Care Team Providers Name Role Phone Unavailable Primary Care Provider Unavailable Reason for Visit Episode Based Medications (Routine) - Authorized Specialty Diagnoses / Procedures Referred By Contact Refer red To Contact Diagnoses Malignant Neoplasm Of Lung Middle Lobe Or Bronchus (HCC) Deepthi Mcqueen, Rst Onc Rogo Procedures DC ONDANSETRON HCL INJECTION DC PEMBROLIZUMAB INJ DC CARBOPLATIN INJECTION DC PEMETREXED INJECTION LAN, C.N.P., M.S.N. 200 [facility] [address] [place] [phone] Referral ID Status Reason Start Date Expiration Date Visits V isits Requested Authorized [id number] Authorized 09/10/2021 09/10/2022 5 5 Encounter Details Date Type Department Care Team Description 09/15/2021 Infusion Department of Oncology Deepthi Mcqueen , Malignant Neoplasm Of in [facility] potato chip maker LAN, C.N.P., Right Main Bronchus 200 [facility] M.S.N. (HCC) (Primary Dx) [place], [place] [address] [facility] [address] [place], [place] [phone] (Wo rk) Social History Tobacco Use Types [...] or relatives? How often do you attend oriental orthodox or Never 2021 protestant services? Do you belong to any clubs or No 08/23/2021 organizations such as oriental orthodox groups, unions, fraternal or athletic groups, [...] pembrolizumab and approximately 30 minutes prior to ag[place] agent sodium chloride 0.9 % injection 3 mL Given 09/15/2021 10:57 AM CDT 20 mL 3 mL, intra-catheter, As needed, line care, Starting on Tue09/15/21 at 0934, Prior to and following infusion and between multiple consecutive infusions. documented in this encounter
--- OUTSIDE RECORDS SUMMARY | 2022-03-02 20:17 | XMS_ITS | Encounter Summary ---
:1960 Author Organization [facility] Address [address] [place] [address] Care Team Providers Name Role Phone Unavailable Primary Care Provider Unavailable Encounter Details Date Type Department Care Team Description 09/01/2021 Lab RST RO Radha Liriano, Malignant Neoplasm Of [address] [place] [address].DAllen [place] [address] 200 [facility] Multiple Site Right [place], [place] ([facility]) [phone] (Wo rk) Social History Tobacco Use Types [...] do you attend jew or Never 2021 orthodoxy services? Do you [...] DNA change: c.35G>A Amino Acid change: p.G12D ([id number]) Classification: MUTATION No additional reportable alterations were identified within the analyzed regions of the tested genes listed in the method description. Released By Justo Sierra, 09/16/2021 DTMonroe Spencer 12:47 PM CDT Additional CLINICAL TRIALS 09/16/2021 DTL Information Possible clinical trials of benefit for this patient c an be 12:47 PM found at the following sites: CDT 1) ClinicalTrials.gov: www.clinicaltrials.gov/ct2/search/advanced 2) [facility]: www.[facility]/research/clinical-trials/ 3) National Cancer [place]: www.cancer.gov/clinicaltrials/search REFERENCE TRANSCRIPT(S) Mutation nomenclature is based on the following GenBank accession number(s) (build GRCh37 (hg19)): KRAS [id number]. Specimen Cells 09/16/2021 DTL 12:47 PM CDT Tissue ID [id number] 09/16/2021 DTL (smears 3 and 6) 12:47 [...] Caitlin Rev Clin Oncol. 2010Dec 15;8(11):661-8 (PMID [id number]) 3. Int J Cancer 2011;131(5):O217-173 (PMID [id number]) 4. Mod Pathol. 2008 August; Suppl 2:S16-22 (PMID [id number]) 5. J Clin Oncol. 2005 Dec 24;23(25):1179-9 (PMID [id number]) Comment: ----ADDITIONAL INFORMATION---- Microscopic examination was performed [...] and additional information about this test, see www.[email or web address]. [employer] (Group) (Test ID CAPN). CLINICAL CORRELATIONS Test results [...] and its performa nce characteristics determined by [facility] in a manner consistent with CLIA requirements. 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
--- OUTSIDE RECORDS SUMMARY | 2022-03-02 20:17 | XMS_ITS | Encounter Summary ---
:1960 Author Organization [facility] Address [address] [place] [address] Care Team Providers Name Role Phone Unavailable Primary Care Provider Unavailable Reason for Referral MRI/CAT/PET Scan (Routine) - Modified Order Specialty Diagnoses / Procedures Referred By Contact Refer red To Contact Radiology Diagnoses Malignant Neoplasm Of Bronchus And Lung Multiple Site Left (HCC) Radha Moore M.D. [facility] Procedures MR Brain without and with IV Contrast MR Brain with IV Contrast NV MRI BRAIN W CNTRST 200 [place] [address] Referral ID Status Reason Start Date Expiration Date Visits V isits Requested Authorized [id number] Modified 08/27/2021 08/27/2022 1 1 Order Outpatient (Routine) - Closed Specialty Diagnoses / Procedures Referred By Contact Refer red To Contact Radha Moore M.D. 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 [facility] Procedures ECG 12 Lead 200 [place] [address] Referral ID Status Reason Start Date Expiration Date Visits Requ ested Visits Authorized [id number] Closed 08/27/2021 08/27/2022 1 1 Reason for Visit Appointment Request (Routine) - Closed Specialty Diagnoses / Procedures Referred By Contact Refer red To Contact Pulmonary Medicine Diagnoses Malignant Neoplasm Of Unspecified Part Of Lung Laterality Unknown (HCC) Tin Hernandez M.D., M.P.H. [address] [place] [address] Referral ID Status Reason Start Date Expiration Date Visits Requ ested Visits Authorized [id number] Closed 08/11/2021 08/11/2022 1 1 Encounter Details Date Type Department Care Team Description 08/27/2021 Comprehensive Visit Division of Catia Moore Neoplasm Of Bronchus And Lung Multiple Site Right (HCC) (Primary Dx); Pulmonary Radha Ladd, Malignant Neopl asm Of Bronchus And Lung Multiple Site Left (HCC); Medicine in M.DAllen Lymphadenopathy H[place]; [place], [facility] Lymphaden[facility] Mediastinum; [place], [place] Smoking Tobacco Use Personal History [facility] [address] [place], [place] [phone] [phone] (Work) [phone] Social History Tobacco Use Types Packs/Day Years [...] do you attend jainism or Never 2021 moravian services? Do you [...] to percutaneous biopsy. He is presenting to [place] for further workup of his lung nodule, [...] July of 2021. 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 He has been exposed to significant dust including still,iron, wood dust as well as pneumonia. 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 Family history Father with lung cancer [...] RST [place], Neuroradiology ARZ N/A Magnetic Resonance [facility], Neuroradiology [facility] Specimen (Source) Anatomical Collection Method Collection Time [...] Signature Ventricular Rate 56 BPM MUSE ECG/Min NV Interval 172 ms MUSE QRSD Interval 96 ms MUSE QT Interval 444 ms MUSE QTC Interval 428 ms MUSE P [place] 18 degrees MUSE R [place] 6 degrees MUSE T Wave [place] 12 degrees MUSE Specimen Anatomical Collection Method [...] FDG avid distant metastatic disease. Radha RACHEL CA PROCEDURES documented in this encounter Visit Diagnoses [...]
--- OUTSIDE RECORDS SUMMARY | 2022-03-02 20:17 | XMS_ITS | Encounter Summary ---
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 [facility] [address] [place] [phone] Referral ID Status Reason Start Date Expiration Date Visits Requ ested Visits Authorized [id number] Closed 08/27/2021 08/27/2022 1 1 Encounter Details Date Type Department Care Team Description 09/01/2021 Virtual Visit Division of Pulmonary Radha Moore Malignant Neoplasm Of Medicine in [place], [place]. Bronchus And Lung [place], [place] [address] [facility] Multiple [facility] Right [address] [place], [place] (HCC) (Primary Dx) [place] [phone] Social History Tobacco Use Types Packs/Day Years [...] or relatives? How often do you attend yazdanism or Never 2021 pentecostalism services? Do you belong to any clubs or No 08/23/2021 organizations such as yazdanism groups, unions, fraternal or athletic groups, or [...] DNA change: c.35G>A Amino Acid change: p.G12D ([id number]) Classification: MUTATION No additional reportable alterations were identified within the analyzed regions of the tested genes listed in the method description. Released By Justo Sierra, 09/16/2021 MARIO Spencer 12:47 PM CDT Additional CLINICAL TRIALS 09/16/2021 DTL Information Possible clinical trials of benefit for this patient c an be 12:47 PM found at the following sites: CDT 1) ClinicalTrials.gov: www.clinicaltrials.gov/ct2/search/advanced 2) [facility]: www.[facility]/research/clinical-trials/ 3) National Cancer [place]: www.cancer.gov/clinicaltrials/search REFERENCE TRANSCRIPT(S) Mutation nomenclature is based on the following GenBank accession number(s) (build GRCh37 (hg19)): KRAS [id number]. Specimen Cells 09/16/2021 DTL 12:47 PM CDT Tissue ID [id number] 09/16/2021 DTL (smears 3 and 6) 12:47 [...] Rev Clin Oncol. 2011 Dec 15;8(11):661-8 (PMID [id number]) 3. Int J Cancer 2011;131(5):R990-047 (PMID [id number]) 4. Mod Pathol. 2007; Suppl 2:S16-22 (PMID [id number]) 5. J Clin Oncol. 2005 Dec 24;23(25):5900-9 (PMID [id number]) Comment: ----ADDITIONAL INFORMATION---- Microscopic examination was performed [...] and additional information about this test, see [email or web address]. rumr: turn off the lights (Test ID CAPN). CLINICAL CORRELATIONS Test results [...] and its performa nce characteristics determined by [facility] in a manner consistent with CLIA requirements. 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
--- OUTSIDE RECORDS SUMMARY | 2022-03-02 20:17 | XMS_ITS | Encounter Summary ---
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 [facility], in [place], [address] [place], [place] [address] [facility] [address] [place], [place] [phone] (Work) [phone] Social History Tobacco Use Types Packs/Day Years [...] or relatives? How often do you attend restoration or Never 2021 latter-day services? Do you belong to any clubs or No 08/23/2021 organizations such as restoration groups, unions, fraternal or athletic groups, or [...] Neuroradiology AR N/A Magnetic Resonance [place], Neuroradiology [facility] Specimen (Source) Anatomical Collection Method [...] most prominent within the brainstem. Somewhat prominent ammunition components inspector ior aspect of the pituitary gland, without [...] most prominent within the brainstem. Somewhat prominent ammunition components inspector ior aspect of the pituitary gland, without [...]
--- OUTSIDE RECORDS SUMMARY | 2022-03-02 20:17 | XMS_ITS | Encounter Summary ---
:1960 Author Organization [facility] Address [address] [place] [address] Care Team Providers Name Role Phone Unavailable Primary Care Provider Unavailable Encounter Details Date Type Department Care Team Description 08/26/2021 Hospital Encounter Department of Catia Potter Neoplasm Of Bronchus And Lung Multiple Site Right (HCC); Laboratory Medicine Tj Orourke [facility], [address] [facility], in [place], [place] [address] [place] [address] [place], [place] (Work) [phone] Social History Tobacco Use Types Packs/Day Years [...] do you attend mormonism or Never 2021 gnosticist services? Do you [...] or the highest technical, or vocational p [facility] [place] degree you [...] 08/26/2021 DTL Black/ mL/min/BSA 11:12 AM CDT Senegalese Comment: ----ADDITIONAL INFORMATION---- Estimated GFR calculated using [...] City/State/ZIP Code Phon e Number [facility] - [address] [place], [place] [address] [facility] [place] [address] Laboratories-[facility] [address] [facility] (ABNORMAL) CBC with Differential, Blood (08/26/2021 10:16 AM CDT) [facility] gist Method Time Signature Hemoglobin 12.1 (L) [...] City/State/ZIP Code Phon e Number [facility] - [address] [place], [place] [address] [facility] [place] [address] [facility] [address] documented in this encounter Visit Diagnoses Diagnosis 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
--- OUTSIDE RECORDS SUMMARY | 2022-03-02 20:17 | XMS_ITS | Encounter Summary ---
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 [facility] Procedures MR Brain without and with IV Contrast MR Brain with IV Contrast 200 [place] [address] Referral ID Status Reason Start Date Expiration Date Visits V isits Requested Authorized [id number] Modified 08/17/2021 08/17/2022 1 1 Order Encounter Details Date Type Department Care Team Description 08/17/2021 Documentation Division of Pulmonary Galen Potter M.D. Medicine in [address] [place] [address] [place] [address] [phone] Social History Tobacco Use Types Packs/Day Years [...] do you attend hinduism or Never 2021 hindu services? Do you belong to any clubs or No 08/23/2021 organizations such as hinduism groups, unions, [employer] or athletic groups, or school groups? How [...] or slept in a chcf (including now)? Sex Assigned at Date Recorded [...] Signature VC MAX POST 3.31 L 08/27/2021 [facility] 9:58 AM CDT SUITE PostFVC 3.31 L 08/27/2021 [facility] 9:58 AM CDT SUITE PostFEV1 2.39 L 08/27/2021 [facility] 9:58 AM CDT SUITE FEV1/FVC POST 72.39 % 08/27/2021 [facility] 9:58 AM CDT SUITE FEF 25-75 % 1.69 L/s 08/27/2021 [facility] POST 9:58 AM CDT SUITE PEF POST 6.24 L/s 08/27/2021 [facility] 9:58 AM CDT SUITE FET POST 10.91 sec 08/27/2021 [facility] 9:58 AM CDT SUITE DLCO SINGLE 18.04 ml/(min*mm 08/27/2021 [facility] BREATH POST Hg) 9:58 AM CDT SUITE DLCOC SINGLE 19.58 ml/(min*mm 08/27/2021 [facility] BREATH POST Hg) 9:58 AM CDT SUITE HB 12.10 g(Hb)/dL 08/27/2021 [facility] 9:58 AM CDT SUITE VA SINGLE 4.62 L 08/27/2021 [facility] BREATH POST 9:58 AM CDT SUITE Q7ZpnYgis 98.00 % 08/27/2021 [facility] [place] 9:58 AM CDT SUITE PulseRest 63.00 1/min 08/27/2021 [facility] [place] 9:58 AM CDT SUITE I8XdnLyfn 93.00 % 08/27/2021 [facility] 9:58 AM CDT SUITE PulseExer 103.00 1/min 08/27/2021 [facility] 9:58 AM CDT SUITE EXER TIME 3.00 min 08/27/2021 [facility] 9:58 AM CDT SUITE STEP HEIGHT 9.00 Inch 08/27/2021 [facility] PRE 9:58 AM CDT SUITE TLC POST 4.93 L 08/27/2021 [facility] 9:58 AM CDT SUITE VC POST 3.34 L 08/27/2021 [facility] [place] 9:58 AM CDT SUITE FRCPLETH POST 2.90 L 08/27/2021 [facility] 9:58 AM CDT SUITE RV 1.59 L 08/27/2021 [facility] 9:58 AM CDT SUITE RV % TLC POST 32.32 % 08/27/2021 [facility] 9:58 AM CDT SUITE VC MAX PRE 3.50 L 08/27/2021 [facility] 9:58 AM CDT SUITE FVC 3.50 L 08/27/2021 [facility] 9:58 AM CDT SUITE FEV1 2.25 L 08/27/2021 [facility] 9:58 AM CDT SUITE FEV1/FVC 64.11 % 08/27/2021 [facility] 9:58 AM CDT SUITE EPO72-89% 1.26 L/s 08/27/2021 [facility] 9:58 AM CDT SUITE PEF PRE 6.11 L/s 08/27/2021 [facility] 9:58 AM CDT SUITE FET PRE 9.65 sec 08/27/2021 [facility] 9:58 AM CDT SUITE SUBSTANCE POST Albuterol 08/27/2021 [facility] 9:58 AM CDT SUITE DOSE POST 2 Puff 08/27/2021 [facility] 9:58 AM CDT SUITE % PRED VC MAX 92 % % 08/27/2021 [facility] 9:58 AM CDT SUITE FVC% 92 % % 08/27/2021 [facility] 9:58 AM CDT SUITE FEV1% 75 % % 08/27/2021 [facility] 9:58 AM CDT SUITE % PRED 82 % % 08/27/2021 [facility] [place] FEV1/FVC 9:58 AM CDT SUITE % PRED FEF 49 % % 08/27/2021 [facility] 25-75% 9:58 AM CDT SUITE % PRED PEF 83 % % 08/27/2021 [facility] 9:58 AM CDT SUITE PRED TLC 6.05 08/27/2021 [facility] 9:58 AM CDT SUITE PRED RV 1.91 08/27/2021 [facility] 9:58 AM CDT SUITE PRED VC MAX 3.83 08/27/2021 [facility] 9:58 AM CDT SUITE PRED FVC 3.83 08/27/2021 [facility] 9:58 AM CDT SUITE PRED FEV 1 2.99 08/27/2021 [facility] 9:58 AM CDT SUITE PRED FEV1/FVC 78.2 08/27/2021 [facility] 9:58 AM CDT SUITE PRED FEF 2.56 08/27/2021 [facility] 25-75% 9:58 AM CDT SUITE PRED PEF 7.4 08/27/2021 [facility] 9:58 AM CDT SUITE PRED DLCO 23.3 08/27/2021 [facility] 9:58 AM CDT SUITE PRED DLCOc 23.3 08/27/2021 [facility] 9:58 AM CDT SUITE Specimen (Source) Anatomical Collection Method Collection Time Re ceived Time Location / / Volume Laterality 08/27/2021 7:04 AM CDT Impressions [facility] - 08/27/2021 9:58 AM C DT Abnormal [...] Organization Address City/State/ZIP Code Phon e Number [facility] NA MR Brain without and with IV [...] most prominent within the brainstem. Somewhat prominent colorectal surgeon ior aspect of the pituitary gland, without [...] most prominent within the brainstem. Somewhat prominent colorectal surgeon ior aspect of the pituitary gland, without [...] 08/26/2021 DTL Black/ mL/min/BSA 11:12 AM CDT Cambodian Comment: ----ADDITIONAL INFORMATION---- Estimated GFR calculated using [...] City/State/ZIP Code Phon e Number [facility] - [facility] [address] [place], [place] [address] [facility] [place] [address] [facility] [address] (ABNORMAL) CBC with Differential, Blood (08/26/2021 10:16 AM CDT) [facility] [employer] gist Method Time Signature Hemoglobin 12.1 (L) [...] City/State/ZIP Code Phon e Number [facility] - [address] [place], [place] [address] [facility] [place] [address] [facility] [address] documented in this encounter Visit Diagnoses Diagnosis Mass Lung - Primary 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
--- OUTSIDE RECORDS SUMMARY | 2022-03-02 20:17 | XMS_ITS | Encounter Summary ---
:1960 Author Organization [facility] Address [address] [place] [address] Care Team Providers Name Role Phone Unavailable [...] do you attend yarsanism or Never 2021 taoism services? Do you [...]
--- OUTSIDE RECORDS SUMMARY | 2022-03-02 20:17 | XMS_ITS | Encounter Summary ---
:1960 Author Organization [facility] Address [address] [place] [address] Care Team Providers Name Role Phone Unavailable Primary Care Provider Unavailable Encounter Details Date Type Department Care Team Description 08/31/2021 Orders Only Division of Pulmonary Radha Carrizales Malignant Neoplasm Of Medicine in B, MAllenD. Bronchus And Lung [place], [place] [address] [facility] Multiple Site Right [address] [place], [place] (HCC) (Primary Dx) [place] [address] [phone] Social History Tobacco Use Types Packs/Day Years [...] you attend oriental orthodox or Never 2021 anabaptism services? Do you belong to any clubs [...] or the highest technical, or vocational [facility] degree you have received? Sex Assigned [...]
--- OUTSIDE RECORDS SUMMARY | 2022-03-02 20:17 | XMS_ITS | Encounter Summary ---
:1960 Author Organization [facility] Address [address] [place] [address] Care Team Providers Name Role Phone Unavailable Primary Care Provider Unavailable Encounter Details Date Type Department Care Team Description 08/27/2021 Ancillary Department of Radha Moore Neop lasm Procedure Radiology in Radha Ladd M.D. Of Bronchus And Lung [place] [address] [address] [facility] Multiple Site Right [place], [place] ([facility]) [address] [facility] [address] [place], [place] [phone] (Work) Social History Tobacco Use Types Packs/Day [...] or relatives? How often do you attend orthodoxy or Never 2021 pentecostalism services? Do you belong to any clubs or No 08/23/2021 organizations such as orthodoxy groups, unions, fraternal or athletic groups, or [...]
--- OUTSIDE RECORDS SUMMARY | 2022-03-02 20:17 | XMS_ITS | Encounter Summary ---
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 [facility] Procedures Bronchoscopy (Adult): [address] [place], [place] [address] Referral ID Status Reason Start Date Expiration Date Visits Requ ested Visits Authorized [id number] Closed 08/27/2021 08/27/2022 1 1 Encounter Details Date Type Department Care Team Description 08/28/2021 Hospital Encounter Division of Yoandy Birmingham Malignan t Neoplasm Of Pulmonary Medicine Tj Bronchus And Lung in [place], 200 [facility] Multiple Site Right [place], [place] (HCC) 200 [facility] [address] [place], [place] [phone] (Work) [phone] Social History Tobacco Use Types Packs/Day Years [...] do you attend sikhism or Never 2021 confucianism services? Do you belong to any clubs or No 08/23/2021 organizations such as sikhism groups, unions, [employer] or athletic groups, or school groups? How [...] 12:51 PM 22C3, CDT [place], [place], [place]; using a proprietary detection system) (C1): [...] Its performance characteristics were determined by [facility] in a manner consistent with CLIA requirements. [...] City/State/ZIP Code Phon e Number [facility] - [address] [place], [place] [address] [employer] [facility] [place] [address] Laboratories-[employer] [facility] [address] documented in this encounter [...]
--- OUTSIDE RECORDS SUMMARY | 2022-03-02 20:18 | XMS_ITS ---
:1960 Author Care Team Providers Name Role Phone HAKEEM CUNNINGHAM MD Primary Care Provider [phone] Allergies Code Code System Name Reaction Severity [...] THRU S CONNER SPX 06/05/2015 Laps Surg [id number] Rpbic Rad Information not available Notes: 06/05/2015 [...] ? PSA, <0.10 <4.0 NG/mL Laurence l [place] Serum or Total NG/mL Urology - Plasma [place] [facility]: [address] [place] [address] Past Encounters 01/14/2021 History of Malignant Neoplasm of Prostat e; Erectile Dysfunction Following Radical Prostatectomy Lele Mendoza, PAC: [address] [facility], uite [address] [place] [phone], Ph. Social History Tobacco Smoking Status Light [...]
--- OUTSIDE RECORDS SUMMARY | 2022-03-02 20:18 | XMS_ITS | Encounter Summary ---
:1960 Author Organization [facility] Address [address] [address] Care Team Providers Name Role Phone Unassigned, Provider Primary Care Provider Unavailable Encounter Details Date Type Department Care Team Description 05/20/2005 Emergency Room Emergency Dept Emergency, [facility] EMERGENCY [address] [place] [address] Provider ORDERS/[place] [address] Social History Tobacco Use Types Packs/Day Years Used Date Smoking Tobacco: Never Assessed Sex Assigned at Date Recorded Not on file documented as of this encounter Progress Notes Emergency, Provider - 05/20/2005 12:00 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
--- OUTSIDE RECORDS SUMMARY | 2022-03-02 20:18 | XMS_ITS | Clinical Summary ---
:1960 Author Organization [facility] Address [address] [place] [address] Care Team Providers Name Role Phone Unassigned, [...] e / Group Dates [facility] HP SELF [id number] 2017-Pre Co mmercial INSURED sent MISC INS WORK MISC INS [id number] 1999-Pre CLAIMS Wor kers Comp COMP WC WORK COMP WC sent DEPT [address] [place] [address] [facility] 2005-Pr [phone] Workers Comp WC MUTUAL WC esent [address] [place] [address] AMERISURE AMERISURE 2018-Pre [phone] BOX Workers Comp INSURANCE WC INSURANCE WC sent [phone] [place] [address] BCBS BCBS CCS [id number] 2018-Pr [address] Com mercial BLUE LINK 01 esent [address] [place] [address] Cash Norris Personal/Famil Self [address] A y (Home) [facility] [phone] [place], [place] (Work) [phone] CASH NORIRS Comp Self [address] (Home) [place] [address] Cash Norris Workers Comp Self [address] A (Home) [place] [address] Care Teams Novelty Candy Maker Relationship Specialty Start Date End Date Unassigned, Provider PCP - General Unknown Physician 10/30/[address] [place] [address] [place] [address]
--- OUTSIDE RECORDS SUMMARY | 2022-03-02 20:18 | XMS_ITS | Clinical Summary ---
:1960 Author Organization [facility] [place] [address] Care Team Providers Name Role Phone Hakeem Cunningham Edmundeunice [facility] Primary Care Provider [phone] Ray Corona MD Unavailable Alejandra Fam RN, BSN, OCN Unavailable [phone] Gabriele Juarez Unavailable Aidee Sanchez MD [...] Appointme nt (F/u appt) 02/11/2022 Office Visit [facility] F/U (Pneumonia Aboelkhier, [facility] ) 02/11/2022 Travel 01/19/2022 Orders Only Scanner <No scans attac hed> 01/05/2022 Preop Visit Kaley Balderrama Preope rative Exam (Mast MD 01/07 at [facility]); [facility] Update (COVID-1 9 test done Declines f melly shot) 01/05/2022 Telephone Gomez Merchant cardiac baiel Royal MD 01/05/2022 Orders Only Kaley Balderrama <No sc ans attached> MD Latha 01/05/2022 Travel 01/05/2022 Telephone Vivian, Appointment Redanis Lange NP 12/24/2021 Orders Only Scanner <No scans attac hed> 12/23/2021 Refill Hakeem Cunningham Refill Reques t Marty Byrd (codeine-g uaiFENesin (ROBITUSSIN AC) 10-100 mg/5 mL liquid & ibuprofen (ADVI L; MOTRIN) 800 mg tablet) 12/13/2021 Refill Hakeem Cunningham Refill RequMarty [place] (Codeine-g uaifenesin) 12/11/2021 Office Visit Hakeem Cunningham Pain (Whole b tyron pain ) Marty Byrd 12/11/2021 Travel 12/09/2021 Orders Only Lab, [facility] 12/09/2021 Office Visit Cathy Prather p (Post Chanelle, [facility], feeli ng better, still h aving feelings of hea rt racing. 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 located within [facility]) 12/01/2021 Travel from Last 3 Months Immunizations Name Administration Dates Next Due COVID-19 vaccine (Mavatar 09/24/2020, 09/03/2020 30mcg/0.3mL) PF, MDV Hepatitis B [...] Former Smoker Cigarettes 0.9 45 Quit: 07/29/19 Smokeless Tobacco: Never Used Tobacco Cessation: Ready [...] wt on same day) for 01/05/2023 01/05/2022, 04/12/2021, age 18+ 03/05/2021, Additional history exists Colonoscopy through age 75 02/24/2028 02/23/2018, 3 Tetanus booster 03/05/2031 03/05/2021, 12/09/2008 Hepatitis C screening for age Completed 05/17/2013, 2013, 18-79 05/17/2013, Additional history exists Tdap Completed 03/05/2021, 12/09/2008 Medical Devices Implanted Type Area Driver Engineer Device Shelf Model / Identifier Expiration Serial / Date Lot Mesh Inguinal 1.8x4in Marlex Preshaped W/Opening - [id number] Ge neral Left: [employer] 12/21/2023 [id number] / Implanted: Qty: 1 on 03/10/2021 by Jonny Ceran MD at [facility] Surgery Abdomen / Implants [id number] Implant On The Fly - [id number] Left: Knee DEPUY 01/22/2019 [id number] / Implanted: Qty: 1 on 07/08/2010 at [facility] / [id number] Description: FEMORAL UNI COMPONENET SZ 4 LM/RL Insert Knee Rt Sz3 Wylie Unicondylar [facility] - [id number] Right: Knee Miki [employer] 12/28/2019 [id number] / Implanted: Qty: 1 on 07/04/2015 by Wayne Humphries MD at [facility] / [id number] Description: Implanted Right Medial Procedures Procedure Name [...] of2 resultswithin the time period is included. [facility] gist Method Time Signature SEDIMENTATION RATE 37 (H) <20 mm/hr 01/05/2022 [facility] 7:16 PM CDT [facility] TRAL LABORATORY Specimen Anatomical Collection Method / Collection Time Recei ry Time (Source) Location / Volume Laterality Blood BLOOD SPECIMEN / Venipuncture / 01/05/2022 2:06 2021 2:06 Unknown Unknown PM CDT PM CDT Kaley Ruiz MD HEMATOLOGY Performing Organization Address City/State/ZIP Code Phon e Number [facility] [address] [place] [address] LABORATORY-CENTRAL 2000 LABORATORY (ABNORMAL) CBC W PLT NO DIFF (01/05/2022 2:06 PM CDT) Analysis Performed At [facility] logist Time Signature WHITE BLOOD 10.5 4.5 - 11.0 01/05/2022 [facility] COUNT thou/cu mm 2:46 PM CDT [facility] RED BLOOD COUNT 3.86 (L) 4.30 - 01/05/2022 [facility] 5.90 2:46 PM CDT [facility] mil/cu [facility] HEMOGLOBIN 11.5 (L) 13.5 - 01/05/2022 [facility] 17.5 g/dL 2:46 PM CDT [facility] HEMATOCRIT 35.9 (L) 37.0 - 01/05/2022 [facility] 53.0 % 2:46 PM CDT [facility] MCV 93 80 - 100 01/05/2022 [facility] fL 2:46 PM CDT [facility] MCH 29.8 26.0 - 01/05/2022 [facility] 34.0 pg 2:46 PM CDT [facility] MCHC 32.0 32.0 - 01/05/2022 [facility] 36.0 g/dL 2:46 PM CDT [facility] RDW 15.9 (H) 11.5 - 01/05/2022 [facility] 15.5 % 2:46 PM CDT [facility] PLATELET COUNT 447 (H) 140 - 440 01/05/2022 [facility] thou/cu mm 2:46 PM CDT [facility] MPV 9.1 6.5 - 11.0 01/05/2022 [facility] fL 2:46 PM CDT [facility] Specimen Anatomical Collection Method / Collection Time Recei ry Time (Source) Location / Volume Laterality Blood BLOOD SPECIMEN / Venipuncture / 01/05/2022 2:06 2021 2:06 Unknown Unknown PM CDT PM CDT Kaley Ruiz MD HEMATOLOGY Performing Organization Address City/[facility]/[place]IP [facility] [place] e Number [facility] [address] [place], [place] [phone] [facility] [address] (ABNORMAL) C-REACTIVE PROTEIN (01/05/2022 2:06 PM CDT)Only the most recent of2 resultswithin the time period is included. Analysis Performed At [facility] Time Signature C-REACTIVE 1.75 (H) <0.50 01/06/2022 [facility] PROTEIN mg/dL 3:52 AM CDT [facility] TRAL LABORATORY Specimen Anatomical Collection Method / Collection Time Recei ry Time (Source) Location / Volume Laterality Blood BLOOD SPECIMEN / Venipuncture / 01/05/2022 2:06 2021 2:06 Unknown Unknown PM CDT PM CDT Kaley Riuz MD CHEMISTRY Performing Organization Address City/[facility]/ZIP Code Phon e Number [employer] [address] [facility] [place] [address] LABORATORY-CENTRAL 2000 LABORATORY (ABNORMAL) BASIC METABOLIC PANEL (01/05/2022 2:06 PM CDT)Only the most recent of 2 resultswithin the time period is included. Analysis Performed At [facility] Time Signature SODIUM 142 135 - 145 01/06/2022 [facility] mmol/L 3:53 AM CDT [facility] TRAL LABORATORY POTASSIUM 4.3 3.5 - 5.0 01/06/2022 [facility] mmol/L 3:53 AM CDT [facility] TRAL LABORATORY CHLORIDE 109 98 - 110 01/06/2022 [facility] mmol/L 3:53 AM CDT [facility] LABOR[facility] CO2,TOTAL 23 21 - 31 01/06/2022 [facility] mmol/L 3:53 AM CDT [facility] TRAL LABORATORY ANION GAP 10 5 - 18 01/06/2022 [facility] 3:53 AM CDT [facility] TRAL LABORATORY GLUCOSE 109 (H) 65 - 100 01/06/2022 [facility] mg/dL 3:53 AM CDT [facility] TRAL LABORATORY CALCIUM 9.6 8.5 - 10.5 01/06/2022 [facility] mg/dL 3:53 AM CDT [facility] TRAL LABORATORY BUN 25 8 - 25 01/06/2022 [facility] mg/dL 3:53 AM CDT [facility]OR[facility] CREATININE 1.14 0.72 - 01/06/2022 [facility] 1.25 mg/dL 3:53 AM CDT [facility] LAB[facility] BUN/CREAT RATIO 22 (H) 10 - 20 01/06/2022 [facility] 3:53 AM CDT [facility] TRAL LABORATORY eGFR 73 (L) >90 01/06/2022 [facility] mL/min/1.7 3:53 AM CDT [facility] 3m2 TRAL [...] Organization Address City/State/ZIP Code Phon e Number [facility] [address] [place] [address] LABORATORY-CENTRAL 2000 LABORATORY COVID 19 (01/05/2022 1:35 PM CDT) Analysis Performed At Patho logist Time Signature COVID 19 Negative Negative 01/06/2022 [facility] 7:55 PM CDT [facility] MOLECULAR TRAL LABORATORY Specimen Anatomical Location / Collection Method Collection Nikita e Received Time (Source) Laterality / Volume Other SPECIMEN FROM Non-Blood / 01/05/2022 1:35 01/05/2022 9:15 NASOPHARYNGEAL Unknown PM CDT PM CDT STRUCTURE / Unknown Narrative [facility] LABORATORY-CENTRAL LABORAT ORY - 01/06/2022 [...] Kaley Ruiz MD MICROBIOLOGY Performing Organization Address [facility]/ZIP [facility] [place] Ph[place] e Number [facility] [address] [place] [address] LABORATORY-CENTRAL [facility] LABORATORY COVID 19 COLLECTION (01/05/2022 1:35 PM CDT) [facility] Method Time Signature TESTING [facility] 01/05/2022 [facility] LABORATORY Laboratory 9:16 PM CDT LABORATORY-CE NTRAL LABORATORY Comment: Specimen submitted to [facility] Laboratory for testing. Specimen Anatomical Location / Collection Method Collection Nikita e Received Time (Source) Laterality / Volume Other SPECIMEN FROM Non-Blood / 01/05/2022 1:35 01/05/2022 2:45 NASOPHARYNGEAL Unknown PM CDT PM CDT STRUCTURE / Unknown Kaley Ruiz MD SEND OUTS Performing Organization Address [facility] Phon e Number [facility] [address] [place] [address] [place] [address] LABORATORY-CENTRAL 2000 LABORATORY EKG 12 LEAD (01/05/2022) Narrative This result has an attachment that is no t available. Kaley Ruiz MD EKG ORD SCAN-OPERATIVE/PROCEDURE REPORT (12/24/2021 12:00 AM CDT) Narrative This result has an attachment that is no t available. Scanner OTHER (ABNORMAL) HEPATIC FUNCTION PANEL (12/09/2021 3:39 PM CDT) Patholo gist Method Time Signature ALBUMIN 3.3 3.2 - 4.6 12/09/2021 [facility] g/dL 4:14 PM [facility] PROTEIN,TOTAL 5.9 (L) 6.0 - 8.0 12/09/2021 [facility] g/dL 4:14 PM [facility] LABORATORY GLOBULIN 2.6 2.0 - 3.7 12/09/2021 [facility] g/dL 4:14 PM [facility] LABORATORY A/G RATIO 1.3 1.0 - 2.0 12/09/2021 [facility] 4:14 PM [facility] LABORATORY BILIRUBIN,TOTAL 0.3 0.2 - 1.2 12/09/2021 [facility] mg/dL 4:14 PM [facility] LABORATORY BILIRUBIN,DIRECT 0.2 0.1 - 0.5 12/09/2021 [facility] mg/dL 4:14 PM [facility] LABORATORY BILIRUBIN,INDIRE 0.1 (L) 0.2 - 0.8 12/09/[address] mg/dL 4:14 PM [facility] LABORATORY ALK PHOSPHATASE 129 50 - 136 12/09/2021 [facility] IU/L 4:14 PM [facility] LABORATORY ALT (SGPT) 24 8 - 45 12/09/2021 [facility] IU/L 4:14 PM [facility] LABORATORY AST (SGOT) 20 2 - 40 12/09/2021 [facility] IU/L 4:14 PM [facility] LABORATORY Specimen Anatomical Collection Method / Collection Time Recei ry Time (Source) Location / Volume Laterality Blood BLOOD SPECIMEN / Venipuncture / 12/09/2021 3:39 2021 3:40 Unknown Unknown PM CDT PM CDT Cathy JIM CHEMISTRY Performing Organization Address City/State/ZIP Code Phon e Number [facility] LABORATORY SENDOUT INTERNAL ZIP [place] [phone] [facility] WO CONTRAST (12/01/2021 11:37 AM CDT) P athologist Signature EJECTION 60% PROSOLV FRACTION Anatomical Region Laterality Modality HEART Ultrasound Specimen (Source) Anatomical Collection Method Collection Time Re ceived Time Location / / Volume Laterality 12/01/2021 10:48 AM CDT Narrative 12/01/2021 1:11 PM CDT [facility] [address], [place] [address] Main: ? Transthoracic Echo Report CASH TINOCO Excellian ID: [id number] Age: 61 : 1 06/15/1959 Ordering Provider: HAKEEM CUNNINGHAM Exam Date: 12/01/2021 10:48 Gender: M S onographer: ESCOBAR Height: 65 in BS A: 1.88 m?? BP: 146 / 83 Weight: 178 lbs BMI: 29.6 kg/m?? HR: 77 Location: [facility] Rhythm: Normal Sinus Rhythm Procedure Components: [...] mmHg Earnest Del Real MD (Electronically Signed) [facility] d Site Final Date: 01 December 2021 13:11 ICD-10 Codes: I31.3 Procedure Note Earnest Del Real MD - 12/01/2021Form atting of this note might be different from the original. [facility] [address], [place] [address] Main: Transthoracic Echo Report CASH TINOCOian ID: [id number] Age: 61 : 1 06/15/1959 Ordering Provider: HAKEEM CUNNINGHAM Exam Date: 12/01/2021 10:48 Gender: M S onographer: ESCOBAR Height: 65 in BS A: 1.88 m?? BP: 146 / 83 Weight: 178 lbs BMI: 29.6 kg/m?? HR: 77 Location: [facility] Rhythm: Normal Sinus Rhythm Procedure Components: [...] mmHg Earnest Del Real MD (Electronically Signed) [facility] d Site Final Date: 01 December 2021 13:11 ICD-10 Codes: I31.3 aHkeem Cunningham MBChB ECHO ORD from Last 3 Months Insurance Payer Benefit Plan / Subscriber ID Effective Dates Phone Addre ss Type Group MEDICARE PART A MEDICARE PART A [id number] 2021-Presen ATTN: CLAIMS - HB USE ONLY HB ONLY t [address] [place] [address] BLUE CROSS BLUE CROSS OF [id number] 2021-Presen [address] [place] [phone] MEDICARE PART B MEDICARE PART B [id number] 2021-Presen ATTN: CLAIMS - HB USE ONLY HB ONLY t [address] [place] [address] MEDICARE - PB MEDICARE PB [id number] 2021-Presen ATTN : CLAIMS USE ONLY ONLY t [address] [place] [address] (Home) [place] [address] Advance Directives Latest Code Status on File [...] 8:10 PM 06/06/2015 2:49 PM Care Teams Guitar Repair Technician Relationship Specialty Start Date End Date Hakeem Cunningham PCP - General 05/09/07 [place] [facility] [address] [place] [address] Ray Corona, Rheumatology Rheumatology 11/25/11 Alejandra Fam, RN, Nurse Navigator - Registered Nurse 08/13/21 BSN, OCN Oncology [address] [facility] [address] [place] [address] Larry Medical Oncologist Internal Medicine 11/17/21 Gabriele [address] [place] [phone] Aidee Sanchez MD Radiation Oncologist Radiation Oncology 11/17/[address] [place] [phone]
--- OUTSIDE RECORDS SUMMARY | 2022-03-02 20:18 | XMS_ITS | Encounter Summary ---
:1960 Author Organization [employer] Address [address], [place] [address] Care Team Providers Name Role Phone Unassigned, Provider Primary Care Provider Unavailable Reason for Visit Reason Comments CHEMICAL EXPOSURE 11/2 hour ago Encounter Details Date Type Department Care Team Description 05/20/2005 Emergency [facility] [place], TOXIC EFFECT [facility] [address] [place], [place] [id number] [place] [address] [place] [address] Social History Tobacco Use Types Packs/Day Years Used Date Smoking Tobacco: Never Assessed Sex Assigned at Date Recorded Not on file documented as of this encounter Last Filed Vital Signs Vital Sign Reading Time Taken Comments Blood Pressure 117/58 05/20/2005 12:06 PM [facility] TEACHER Pulse 53 05/20/2005 12:06 PM [facility] TEACHER Temperature 36.5 ??C (97.7 ??F) 05/20/2005 12:06 PM TM[facility] TEACHER Respiratory Rate 20 05/20/2005 12:06 PM TMH TEACHER Oxygen Saturation 100% 05/20/2005 12:06 PM TM[facility] TEACHER Inhaled Oxygen Concentration - - Weight - - Height - - Body Mass Index - - documented in this encounter Discharge Instructions Discharge InstructionsFaby Heredia - 05/20/2005 2:43 PM TMH TEACHER Dear Ms. Norris, Thank you for choosing [facility] for your emergency medical needs. You have received emergency care only and your condition may change. Therefore, we highly recommend you follow-up with your physician as directed. For follow-up care contact: Please follow up with your primary care clinic/provider. Occupational Health [phone] For follow-up care, you should be seen [...] would like to be seen in a On license of [facility] clinic, please call the [facility] Appointment Desk at [phone] anytime between 7:00 AM and 9:00 PM, 7 days a week, 365 days a year (Hearing Impaired: [phone]). Please bring these instructions with you when [...] observation and/or treatment. ExitCare(R) Patient Information (C)2004 [employer]. \\[email or web address]\[email or web address] - No [email or web address] TEACHER documented in this encounter Consult Notes Nii Kruger R - 05/20/2005 3:10 PM TMH TEACHER [facility] Toxicology Consult Note Patient Name: Hector Norris [...] taken from the patient. 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 The pipes may not have been fully flushed before [employer] crew moved in. 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 Electronically Signed by: Nii Kruger MD - 05/20/2005 - 3:10 PM Director, Clinical Toxicology Service Pager: [phone] TEACHER documented in this encounter ED Notes [place] - 06/01/2005 3:19 AM [facility] Emergency Department Attending Supervision Note Patient Name: Hector Norris Date of : 1960 I have personally seen and examined patient. Case reviewed and discussed with Faby Heredia PA-C. PMH, FH, SOC, ROS reviewed. Please see today's note by MARGARITO. MARGARITO Care under my supervision. This electronic signature covers the nursing and ancillary testing orders for this visit. Author: [place] TEACHER Faby Heredia - 05/20/2005 2:43 PM [facility] Emergency Department Work Slip Patient Name: Hector Norris Date of : 1960 Date of Evaluation: 05/20/2005 Patient states this injury/illness is work related and occurred on 05/20/05 Follow-up with [facility] [phone] Tuesday or Tuesday. Return to work on 05/24/05 if the following restrictions can be met: symptoms resolved and able to be seen in the clinic Faby Heredia Attending Physician: [place] TEACHER Patricia Luciano - 05/20/2005 2:35 PM TM[facility] TEACHER 1405 Toxicology here to see pt. Pt admits to breathing better after neb. Peak flow - 500 with little effort. Pt states he is so much better than was b/[id number] D/C instructions given to pt. He had no fur ther questions. Pt will f/u tomorrow of Tue. with Occ. med. Left knowing what to return to ED for ifany SOB, or trouble breathing. TEACHER Faby Heredia - 05/20/2005 1:52 PM [facility] Emergency Department Visit Note Patient Name: Hector Norris Date of : 1960 Chief Complaint: Patient presents with: CHEMICAL EXPOSURE--ED - 11/2 hour ago HPI: 45yo male presents to ED for chemical exposure. 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 [...] file FH-n/c Review of Systems: Please see [employer] flowsheet for review of systems. Physical Exam: [...] neck/chest/throat tightness, dizziness. Pt to otherwise f/u [facility] tomorrow. Pt agreed with plan and questions answered. Assessment: 45yo male chlorine gas exposure Plan: as above Condition on disposition: Stable Patient seen with: [place] [facility] This electronic signature covers the nursing and ancillary testing orders for this visit. Author: Faby Heredia - 05/20/2005 1:52 PM [place] [facility] - 05/20/2005 1:15 PM [facility] Emergency Department Visit Note Patient Name: Millie Norris Date of : 1960 Chief Complaint: Patient presents with: CHEMICAL EXPOSURE--ED - 11/2 hour ago HPI: 45 year old male exposed to chlorine gas at 10:30. Mr Norris states he was at the [employer] working on [employer]. 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 Pt [...] smoker previously. Review of Systems: Please see [employer] flowsheet for review of systems. Physical Exam: [...] asymptomatic. He was seen by the [employer] steam engineer by Dr. Kruger who felt pt could [...] neck/chest/throat tightness, dizziness. Pt to otherwise f/u [facility] tomorrow. Pt agreed with plan and questions answered. Plan: Re-check Vitals Imaging: Plain Radiograph(s): chest Consultation: Toxicology Medication: Albuterol Medical Stenographer patient/family Re-evaluate patient Check response to treatment Planned Disposition: home Condition on disposition: Stable This electronic signature covers the nursing and ancillary testing orders for this visit. Author: [place] - 05/20/2005 1:15 PM TEACHER Mustapha Patricia Waqas - 05/20/2005 12:57 PM TMH TEACHER BETY AGS EXPOSURE WHILE CLEANING OUT LINES FOR DEMOLITION. C/O OF COUGH AND SOME IRRITAION. LUNGS CLEAR AT THIS TIME. TEACHER Shanthi Stanford - 05/20/2005 12:04 PM TMH TEACHER Chlorine gas TEACHER documented in this encounter Plan of Treatment Not on filedocumented as of this encounter Procedures Procedure Name Priority Date/Time Associated Diagnosis Comme nts CHEST PA/LATERAL Routine 05/20/2005 1:41 PM Resul ts for this TMH TEACHER procedure are i n the results section. documented in this encounter Results CHEST PA/LATERAL (05/20/2005 1:41 PM TMH TEACHER) Component Value Ref Test Analysis Performed At [...] / / Volume Laterality 05/20/2005 1:41 PM TMH TEACHER [facility] MD RAD GENERAL DIAGNOSTIC/RH documented in this encounter Visit Diagnoses Diagnosis Toxic effect of chlorine gas(987.6) Toxic effect of chlorine gas documented in this encounter Care Teams Legal Service Specialist Relationship Specialty Start Date End Date Unassigned, Provider PCP - General 09/19/02 10/29/[address] [place] [id number] documented as of this encounter
--- OUTSIDE RECORDS SUMMARY | 2022-03-02 20:18 | XMS_ITS | Encounter Summary ---
:1960 Author Organization [facility] Address [address] [address] Care Team Providers Name Role Phone Unassigned, Provider Primary Care Provider Unavailable Encounter Details Date Type Department Care Team Description 05/20/2005 Correspondence None [facility] Social History Tobacco Use Types Packs/Day Years Used Date Smoking Tobacco: Never Assessed Sex Assigned at Date Recorded Not on file documented as of this encounter Progress Notes [facility] ROMELIA, PROVIDER - 05/20/2005 12:00 AM SPEECH TEACHER documented in this encounter Plan of Treatment Not on filedocumented as of this encounter Visit Diagnoses Not on filedocumented in this encounter Care Teams Fire Coordinator Relationship Specialty Start Date End Date Unassigned, Provider PCP - General 09/19/02 10/29/[address] [place] [id number] documented as of this encounter
[2022-03-02 20:28] LABS: Eosinophils Absolute Auto 0.03 K/uL (0.00-0.50); Eosinophils Percent Auto 0.3 % (0.0-7.0); Hematocrit 29.9 % (37.0-53.0); Hemoglobin* 9.4 gm/dL (13.5-17.5); Immature Granulocytes Abs Auto 0.88 K/uL (0.00-0.30); Immature Granulocytes Pct Auto 9.4 %; Lymphocytes Percent Auto 2.8 % (20-44); Mean Corpuscular HGB Conc 31 gm/dL (32-36); Mean Corpuscular Hemoglobin 29 pg (26-34); Mean Corpuscular Volume 92 fL (80-100); Monocytes Percent Auto 5.9 % (0.0-11.0); Neutrophils Percent Auto 81.6 % (42.0-72.0); Platelet Count* 258 K/uL (140-440); RDW Coefficient of Variation % 16.3 % (11.5-15.5); Red Blood Count 3.26 m/uL (4.30-5.90)
[2022-03-02 20:31] LABS: Slide Review Reflex No
[2022-03-02 20:34] LABS: PCR FLU A Negative PCR FLU A (Negative); PCR FLU B Negative PCR FLU B (Negative); SARS PCR* Negative SARS-CoV-2 (Negative)
[2022-03-02 20:52] LABS: Albumin* 3.1 g/dL (3.3-5.0); Chloride* 99 mmol/L (96-114)
[2022-03-02 20:53] LABS: Potassium* 3.8 mmol/L (3.6-5.1); Sodium* 133 mmol/L (135-149)
[2022-03-02 20:55] LABS: Aspartate Amino Transferase* 22 U/L (12-35); Bilirubin Total* 0.5 mg/dL (0.1-1.5); Carbon Dioxide* 26 mmol/L (20-32); Creatinine* 0.5 mg/dL (0.5-1.5); Est. Creatinine Clearance* 67.48; Estimated Glomerular Filt Rate 116 ml/min; Total Protein* 5.8 g/dL (6.0-8.3)
[2022-03-02 20:56] LABS: Alanine Aminotransferase* 18 U/L (4-50); Alkaline Phosphatase* 155 U/L (40-150); Blood Urea Nitrogen* 26 mg/dL (7-30); Calcium* 9.4 mg/dL (8.4-10.6); Glucose* 101 mg/dL (60-115)
[2022-03-02 21:09] LABS: Troponin I* < 0.01 ng/mL (0.01-0.04)
--- NOTE | 2022-03-02 21:22 | ED.SOB ---
HPI - SOB/Dyspnea General Chief Complaint: Shortness of Breath/Dyspnea Stated Complaint: Breathing Problems (Post Chemo) Time Seen by Provider: 03/02/22 19:42 History of Present Illness HPI Narrative: Pt is a 61 year old gentleman who is currently being treated for adenocarcinoma of the lung with metastasis who presents with increasing shortness of breath of one day duration. No chest pain. Pt has a history of pneumonia in the recent past but has been able to continue his oncology treatment. Pt has an oxygen saturation of 83% on room air upon arrival and does not have supplemental oxygen at home. Pt tried nebulizer treatments at home with no improvement. Pt has had minimal cough. No sputum production. Pt has been eating and drinking normally but has been increasingly weak. No fever or chills. Related Data Home Medications Medication Instructions Recorded Confirmed escitalopram oxalate 10 mg tablet 10 mg PO DAILY 10/28/21 03/02/22 omeprazole 40 mg capsule,delayed 40 mg PO DAILY 10/28/21 03/02/22 release ondansetron 8 mg disintegrating 8 mg PO Q8H PRN 10/28/21 02/25/22 tablet prochlorperazine maleate 10 mg 10 mg PO Q6H PRN 10/28/21 02/25/22 tablet tadalafil 20 mg tablet 20 mg PO DAILY PRN 10/28/21 02/25/22 colchicine 0.6 mg tablet 0.6 mg PO BID PRN 12/14/21 03/02/22 folic acid 400 mcg tablet 0.4 mg PO QDAY 12/14/21 03/02/22 ibuprofen 800 mg tablet 800 mg PO Q8H 12/14/21 02/25/22 diltiazem HCl 240 mg 240 mg PO Q24H 02/01/22 03/02/22 capsule,extended release 24 hr diltiazem HCl 60 mg tablet mg 02/01/22 02/25/22 aspirin 81 mg tablet,delayed 81 mg PO QDAY 02/19/22 03/02/22 release dextromethorphan-guaifenesin 10 10 ml PO Q4-6H PRN 02/25/22 03/02/22 mg-100 mg/5 mL oral syrup Previous Rx's Medication Instructions Recorded codeine 10 mg-guaifenesin 100 mg/5 10 ml PO Q4-6H PRN cough #473 mL 02/19/22 mL oral liquid oxycodone 10 mg tablet 10 mg PO Q4-6H PRN pain #30 tabs 02/25/22 Allergies Allergy/AdvReac Type Severity Reaction Status Date / Time No Known Drug Allergies Allergy Verified 03/02/22 19:40 Review of Systems Status of ROS: Reports: 10 or more systems reviewed and unremarkable except as noted in History and below PFSH [facility] Medical History Hx of prostatic malignancy Hx of rheumatoid arthritis 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 Left inguinal hernia Lumbago Lung neoplasm Myalgia and myositis, unspecified Thoracic or lumbosacral neuritis or radiculitis Surgical History History of total right knee replacement S/P prostatectomy S/P rotator cuff repair Social History Smoking Status: Former smoker What tobacco products do you use: cigarettes Smoking quit date/years: <= 15 years ago Do you use any of these nicotine containing products: None Second hand tobacco smoke exposure: No How often do you have a drink containing alcohol: 2-3 times a week How many standard drinks containing alcohol do you have on a typical day: 3 or 4 AUDIT-C Alcohol total score: 4 Non-prescribed substance use: denies use service: Yes Exam Narrative: Exam Narrative: EXAM GENERAL: Patient appears cachectic and emaciated EYES: No scleral icterus. LYMPH: No supraclavicular or cervical lymphadenopathy. SKIN: Visible skin seen during exam normal or with benign process only. EXT: No dependent lower extremity pedal edema. HEART: Regular rate and rhythm with no murmurs, rubs, or gallops. LUNGS: Decreased breath sounds throughout with scattered rhonchi noted. ABD: Soft, non tender, non distended. PSYCH: Good eye contact, speech is not pressured. Const: Vital Signs, click to edit/add: Vital Signs - 24 hr 03/02/22 19:38 03/02/22 19:52 03/02/22 20:06 Temperature 98.7 F Pulse Rate Pulse Rate [Right Pulse Oximeter] 105 H Respiratory Rate 22 Blood Pressure Blood Pressure [Ri ght Upper Arm] 117/77 Pulse Oximetry 83 L 91 91 Oxygen Delivery Me thod Room Air Nasal Cannula Oxygen Flow Rate 2 03/02/22 20:32 03/02/22 21:02 03/02/22 21:32 Temperature Pulse Rate 92 94 92 Pulse Rate [Right Pulse Oximeter] Respiratory Rate 20 20 20 Blood Pressure 117/69 116/75 107/69 Blood Pressure [Ri ght Upper Arm] Pulse Oximetry 91 91 92 Oxygen Delivery Me thod Nasal Cannula Nasal Cannula Nasal Cannula Oxygen Flow Rate 2 2 2 03/02/22 22:02 Temperature Pulse Rate 91 Pulse Rate [Right Pulse Oximeter] Respiratory Rate Blood Pressure 103/61 Blood Pressure [Ri ght Upper Arm] Pulse Oximetry 91 Oxygen Delivery Me thod Nasal Cannula Oxygen Flow Rate 2 Course Course Hospital Course: Pt seen and examined. Medical record reviewed. Reevaluation(s) Reevaluation #1: Pt requiring 2 liters oxygen per nc. Xray shows right sided pneumonia. Time: 22:05 Reevaluation #2: Labs reassuring upon my review. Blood cultures collected. Time: 22:37 Vital Signs Vital signs: Initial Vital Signs Temperature 98.7 F 03/02/22 19:38 Temperature Source Temporal Artery Scan 03/02/22 19:38 Pulse Rate 105 H 03/02/22 19:38 Respiratory Rate 22 03/02/22 19:38 Blood Pressure 117/77 03/02/22 19:38 Blood Pressure Mean 90 03/02/22 19:38 Blood Pressure Position Sitting 03/02/22 19:38 Pulse Oximetry 83 L 03/02/22 19:38 Oxygen Delivery Method 03/02/22 19:38 Vital Signs Temperature 98.7 F 03/02/22 19:38 Pulse Rate 105 H 03/02/22 19:38 Respiratory Rate 22 03/02/22 19:38 Blood Pressure 117/77 03/02/22 19:38 Pulse Oximetry 83 L 03/02/22 19:38 Oxygen Delivery Method 03/02/22 19:38 Temperature 98.7 F 03/02/22 19:38 Pulse Rate 91 03/02/22 22:02 Respiratory Rate 20 03/02/22 21:32 Blood Pressure 103/61 03/02/22 22:02 Pulse Oximetry 91 03/02/22 22:02 Oxygen Delivery Method 03/02/22 22:02 Oxygen Flow Rate 2 11/08/22 22:02 MDM - SOB/Dyspnea MDM Narrative Medical decision making narrative: Pt is a 61 actively going through treatment for metastatic adenocarcinoma of the lung who presents hypoxic at 83% on room air with increased work of breathing. Pts troponin is negative. Hgb 9.4. Viral studies negative. Chest x ray shows right sided pneumonia. Blood cultures collected. Pt comfortable on 2 liters oxygen. Pt started on Rocephin and Zithromax and will need to be admitted as he is hypoxic and has no home oxygen. Differential Diagnosis Differential diagnosis: Likely acute exacerbation of chronic obstructive airways disease, congestive heart failure, community acquired pneumonia and asthma with exacerbation Medical Records Attestation: I reviewed the patient's medical records. Lab Data Labs: Lab Results 03/02/22 03/02/22 03/02/22 Range/Units 20:00 20:00 20:24 WBC 9.40 (4.50-11.00) K/uL RBC 3.26 L (4.30-5.90) m/uL Hgb 9.4 L (13.5-17.5) gm/dL Hct 29.9 L (37.0-53.0) % MCV 92 (80-100) fL MCH 29 (26-34) pg MCHC 31 L (32-36) gm/dL RDW Coeff of Rosalva 16.3 H (11.5-15.5) % Plt Count 258 (140-440) K/uL Neut % (Auto) 81.6 H (42.0-72.0) % Lymph % (Auto) 2.8 L (20-44) % [place] % (Auto) 5.9 (0.0-11.0) % Eos % (Auto) 0.3 (0.0-7.0) % Baso % (Auto) 0.0 (0.0-3.0) % Neut # (Auto) 7.70 H (1.7-7.0) K/uL Lymph # (Auto) 0.30 L (0.90-2.90) K/uL [place] # (Auto) 0.60 (0.00-0.90) K/UL Eos # (Auto) 0.03 (0.00-0.50) K/uL Baso # (Auto) 0.00 (0.00-0.30) K/uL Abs Immat Gran (auto) 0.88 H (0.00-0.30) K/uL Imm/Tot Granulo (auto) 9.4 % Sodium 133 L (135-149) mmol/L Potassium 3.8 (3.6-5.1) mmol/L Chloride 99 (96-114) mmol/L Carbon Dioxide 26 (20-32) mmol/L BUN 26 (7-30) mg/dL Creatinine 0.5 (0.5-1.5) mg/dL Estimated Creat Clear 67.48 Estimated GFR 116 ml/min Glucose 101 (60-115) mg/dL Calcium 9.4 (8.4-10.6) mg/dL Total Bilirubin 0.5 (0.1-1.5) mg/dL AST 22 (12-35) U/L ALT 18 (4-50) U/L Alkaline Phosphatase 155 H (40-150) U/L Troponin I < 0.01 L (0.01-0.04) ng/mL Total Protein 5.8 L (6.0-8.3) g/dL Albumin 3.1 L (3.3-5.0) g/dL SARS-CoV-2 (PCR) Negative SARS-CoV-2 (Negative) Influenza Type A (PCR) Negative PCR FLU A (Negative) Influenza Type B (PCR) Negative PCR FLU B (Negative) Discharge Plan Discharge Clinical Impression: Lung cancer metastatic to bone, Pneumonia Patient Disposition: Admitted As Inpatient Condition: Stable Activity Level: Other Discharge Diet: Other Prescriptions: No Action ibuprofen 800 mg tablet 800 mg PO Q8H Hold Instructions: off since on blood thinner colchicine 0.6 mg tablet 0.6 mg PO BID PRN Hold Instructions: pharm notes interaction folic acid 400 mcg tablet 0.4 mg PO QDAY dextromethorphan-guaifenesin 10-100 mg/5 mL syrup 10 ml PO Q4-6H PRN oxycodone 10 mg tablet 10 mg PO Q4-6H PRN (Reason: pain) Qty: 30 0RF aspirin 81 mg tablet,delayed release (DR/EC) 81 mg PO QDAY codeine-guaifenesin 10-100 mg/5 mL liquid 10 ml PO Q4-6H PRN (Reason: cough) Qty: 473 1RF escitalopram oxalate 10 mg tablet 10 mg PO DAILY omeprazole 40 mg capsule,delayed release(DR/EC) 40 mg PO DAILY ondansetron 8 mg tablet,disintegrating 8 mg PO Q8H PRN prochlorperazine maleate 10 mg tablet 10 mg PO Q6H PRN tadalafil 20 mg tablet 20 mg PO DAILY PRN Rx Instructions: administer approximately 30min before sexual activity; do not use more than 1 dose per 24hrs diltiazem HCl 60 mg tablet Hold Instructions: Order Change diltiazem HCl 240 mg capsule,extended release 24hr 240 mg PO Q24H Label Comments: Take 1 Capsule (240 mg) by mouth once daily. Follow Up/Referrals: Marco Jarrett MD [Primary Care Provider] -
[2022-03-02] MEDS: cefTRIAXone 1 GM in 0.9 % SODIUM CHLORIDE Mini-bag 100 ML IVPB (21:39)
[2022-03-02] MEDS: AZITHROMYCIN 500 MG in 0.9 % SODIUM CHLORIDE 250 ml 250 ML 255 MG IVPB (22:20)
--- NOTE | 2022-03-02 23:33 | ED.NURSE ---
report to ms anya.
[2022-03-03] VITALS (8 sets, daily range): BP systolic 103–112; BP diastolic 63–74; PULSE 81–89; RESP 18–26; TEMP 36.4–36.9; O2SAT 88–94; BMI 26.3
--- NOTE | 2022-03-03 00:29 | P.IMCN_ITS ---
Date of Consult Consult date: 03/03/22 Primary Care Provider: Marco Jarrett MD Consult Narrative Narrative: Hector Norris is a 61 year old male 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 Left inguinal hernia Lumbago Lung neoplasm Myalgia and myositis, unspecified Thoracic or lumbosacral neuritis or radiculitis Surgical History History of total right knee replacement S/P prostatectomy S/P rotator cuff repair Social History Smoking Status: Former smoker What tobacco products do you use: cigarettes Smoking quit date/years: <= 15 years ago Do you use any of these nicotine containing products: None Second hand tobacco smoke exposure: No How often do you have a drink containing alcohol: 2-3 times a week How many standard drinks containing alcohol do you have on a typical day: 3 or 4 AUDIT-C Alcohol total score: 4 Non-prescribed substance use: denies use service: Yes Meds Home Medications and Allergies Home Medications Medication Instructions Recorded Confirmed Type escitalopram oxalate 10 mg tablet 10 mg PO DAILY 10/28/21 03/02/22 History omeprazole 40 mg capsule,delayed 40 mg PO DAILY 10/28/21 03/02/22 History release ondansetron 8 mg disintegrating 8 mg PO Q8H PRN 10/28/21 02/25/22 History tablet prochlorperazine maleate 10 mg 10 mg PO Q6H PRN 10/28/21 02/25/22 History tablet tadalafil 20 mg tablet 20 mg PO DAILY PRN 10/28/21 02/25/22 History colchicine 0.6 mg tablet 0.6 mg PO BID PRN 12/14/21 03/02/22 History folic acid 400 mcg tablet 0.4 mg PO QDAY 12/14/21 03/02/22 History ibuprofen 800 mg tablet 800 mg PO Q8H 12/14/21 02/25/22 History diltiazem HCl 240 mg 240 mg PO Q24H 02/01/22 03/02/22 History capsule,extended release 24 hr diltiazem HCl 60 mg tablet mg 02/01/22 02/25/22 History aspirin 81 mg tablet,delayed 81 mg PO QDAY 02/19/22 03/02/22 History release dextromethorphan-guaifenesin 10 10 ml PO Q4-6H PRN 02/25/22 03/02/22 History mg-100 mg/5 mL oral syrup Allergies Allergy/AdvReac Type Severity Reaction Status Date / Time No Known Drug Allergies Allergy Verified 03/02/22 19:40 Exam Const: Vital Signs, click to edit/add: Vital Signs - 24 hr 03/02/22 19:38 03/02/22 19:52 03/02/22 20:06 Temperature 98.7 F Pulse Rate Pulse Rate [Right Pulse Oximeter] 105 H Respiratory Rate 22 Blood Pressure Blood Pressure [Ri ght Upper Arm] 117/77 Pulse Oximetry 83 L 91 91 Oxygen Delivery Me thod Room Air Nasal Cannula Oxygen Flow Rate 2 03/02/22 20:32 03/02/22 21:02 03/02/22 21:32 Temperature Pulse Rate 92 94 92 Pulse Rate [Right Pulse Oximeter] Respiratory Rate 20 20 20 Blood Pressure 117/69 116/75 107/69 Blood Pressure [Ri ght Upper Arm] Pulse Oximetry 91 91 92 Oxygen Delivery Me thod Nasal Cannula Nasal Cannula Nasal Cannula Oxygen Flow Rate 2 2 2 03/02/22 22:02 03/02/22 22:32 03/02/22 23:02 Temperature Pulse Rate 91 90 90 Pulse Rate [Right Pulse Oximeter] Respiratory Rate Blood Pressure 103/61 110/74 106/66 Blood Pressure [Ri ght Upper Arm] Pulse Oximetry 91 90 93 Oxygen Delivery Me thod Nasal Cannula Nasal Cannula Nasal Cannula Oxygen Flow Rate 2 2 2 03/02/22 23:03 03/02/22 23:30 03/02/22 23:31 Temperature Pulse Rate 95 86 88 Pulse Rate [Right Pulse Oximeter] Respiratory Rate Blood Pressure 104/72 Blood Pressure [Ri ght Upper Arm] Pulse Oximetry 93 92 93 Oxygen Delivery Me thod Oxygen Flow Rate Labs Labs: Short CBC 03/02/22 Range/Units 20:00 WBC 9.40 (4.50-11.00) K/uL Hgb 9.4 L (13.5-17.5) gm/dL Hct 29.9 L (37.0-53.0) % Plt Count 258 (140-440) K/uL BMP 03/02/22 20:00 Sodium 133 L Potassium 3.8 Chloride 99 Carbon Dioxide 26 BUN 26 Creatinine 0.5 Glucose 101 Calcium 9.4 Cardiac Enzymes 03/02/22 Range/Units 20:00 Troponin I < 0.01 L (0.01-0.04) ng/mL Liver Function 03/02/22 Range/Units 20:00 Total Bilirubin 0.5 (0.1-1.5) mg/dL AST 22 (12-35) U/L ALT 18 (4-50) U/L Alkaline Phosphatase 155 H (40-150) U/L Albumin 3.1 L (3.3-5.0) g/dL Assessment and Plan Assessment and plan (1) Lung cancer metastatic to bone: Status: Acute (2) Pneumonia: Status: Acute Plan [facility] Hospitalist CONSULTATION NOTE: Reason for consult: Pneumonia HPI: Patient is a pleasant 61-year-old gentleman with a history of lung adenocarcinoma actively on chemotherapy and COPD who presents for worsening shortness of breath, cough, and some fevers and chills over the last several days. He has had some chest discomfort with coughing but no cardiac pain. He denies any headache or significant lightheadedness. He has not had abdominal pain, nausea, vomiting. He has had a lack of appetite. He denies any diarrhea. He has not had a measured fevers at home but has been chilled. Patient is a former smoker quitting around 9 months ago. He drinks alcohol on occasion. He does not use recreational drugs. He is undergoing chemotherapy for his lung cancer and his last chemo was around 4 days ago. We discussed CODE STATUS and patient is a DNR. Exam: For exam please see ED provider note Assessment and Plan: 1. Pneumonia [Patient is a pleasant 61-year-old male admitted for pneumonia with likely COPD exacerbation. For his pneumonia we will continue Rocephin and azithromycin started in the ER. For COPD exacerbation we will place him on DuoNebs and as needed albuterol. If he does worsen or is failing to improve we could consider steroids. We will keep him on continuous pulse ox and work to titrate oxygen off as able. His chronic outpatient medications need to be restarted as appropriate once fully verified. He will PRNs available for pain and nausea. Enoxaparin has been placed for DVT prophylaxis. Patient is a DNR. Thank you for [facility]. This service is available for further assistance as requested by your care team by calling [phone].
[2022-03-03] MEDS: FUROSEMIDE 10 MG/ML inj 20 MG IVP (01:06)
[2022-03-03] MEDS: IPRAT-ALBUT 0.5-2.5 MG/3 ML NEB 1 NEB IH ×5 (01:07→21:23)
[2022-03-03] MEDS: MORPHINE 4 MG/ML INJ IVP ×4 (01:07→22:44)
[2022-03-03] MEDS: OXYCODONE 5 MG TABLET PO ×3 (06:04→19:04)
--- NOTE | 2022-03-03 07:41 | PC.NURSE ---
pleasant and cooperative. [place]. Left hearing aid battery is . SBA to assist with O2 tubing. 3+ pitting edema to bilat LE, pt states this is new and had started a couple days ago. 20mg Lasix given, reminded pt to use urinal to measure urine output. LS = crackles&rhonchi, neb given x2, pt able to cough up thick clear mucous. Pt on 2L via NC and maintaining 91-92% when up in chair. When pt got into bed and fell asleep sats dropped into the low 80s, titrated O2 to 3L and maintaining 88-92%. Pt c/o chest pain ? relating it to coughing, morphine given with relief although it did cause some nausea initially, resolved with a cool wash cloth to the neck/forehead, 10mg Oxy given, pt states he usually takes 10mg oxy q4h at home. Pt reported chills, warm blankets applied. Temp 98.2-98.4. Pt expressing concern for developing thrush, PRN swish/swal ordered.
[2022-03-03] MEDS: AZITHROMYCIN 250 MG TABLET PO (08:45)
[2022-03-03] MEDS: 0.9 % SODIUM CHLORIDE 250 ml IV (08:55)
[2022-03-03] MEDS: cefTRIAXone 2 GM in 0.9 % SODIUM CHLORIDE Mini-bag 100 ML IVPB (08:56)
[2022-03-03] MEDS: ACETAMINOPHEN 325 MG TABLET PO ×2 (10:28→16:21)
[2022-03-03] MEDS: TRAMADOL HCL 50 MG TABLET PO (10:28)
[2022-03-03] MEDS: ALBUTEROL SULFATE 2.5 MG/3 ML VIAL.NEB NEB (10:29)
--- NOTE | 2022-03-03 10:30 | CRLHL7_ITS ---
For Patients: As a result of the Cures Act, medical imaging exams and procedure reports are released immediately into your electronic medical record. You may view this report before your referring provider. If you have questions, please contact your health care provider. INDICATION: Chest pain. TECHNIQUE: AP portable chest. COMPARISON: March 02, 2022. FINDINGS: Progressive dense infiltrate and atelectasis right lower lobe and right middle lobe with right suprahilar/perihilar infiltrate. Minimal infiltrate or atelectasis left lung base. Cardiac enlargement. Degenerative change of the shoulders. Postsurgical changes of the lumbar spine from fusion, incompletely visualized. IMPRESSION: Progressive infiltrate/volume loss right lower lobe and right mid lung. Continued radiographic followup after appropriate treatment. Dictated by Derek Headley MD @ 03/03/2022 10:58:45 AM (Electronically Signed)
[2022-03-03 11:11] LABS: HCO3 VBG 29 mmol/L (21-28); Lactate* 1.2 mmol/L (0.5-1.9); PCO2 VBG 44 mmHG (40-50); PO2 VBG 30.3 mmHG (25-47); pH VBG 7.425 (7.32-7.43)
[2022-03-03 11:15] LABS: Hematocrit 29.1 % (37.0-53.0); Hemoglobin* 9.3 gm/dL (13.5-17.5); Mean Corpuscular HGB Conc 32 gm/dL (32-36); Mean Corpuscular Hemoglobin 29 pg (26-34); Mean Corpuscular Volume 92 fL (80-100); Platelet Count* 249 K/uL (140-440); Red Blood Count 3.17 m/uL (4.30-5.90); White Blood Count* 6.07 K/uL (4.50-11.00)
[2022-03-03 11:22] LABS: Slide Review Reflex No
[2022-03-03 11:26] LABS: Albumin* 2.9 g/dL (3.3-5.0); Chloride* 98 mmol/L (96-114); Sodium* 133 mmol/L (135-149)
[2022-03-03 11:27] LABS: Potassium* 3.7 mmol/L (3.6-5.1)
[2022-03-03 11:29] LABS: Alkaline Phosphatase* 144 U/L (40-150); Aspartate Amino Transferase* 24 U/L (12-35); Bilirubin Total* 0.3 mg/dL (0.1-1.5); Carbon Dioxide* 27 mmol/L (20-32); Creatinine* 0.5 mg/dL (0.5-1.5); Est. Creatinine Clearance* 67.48; Estimated Glomerular Filt Rate 116 ml/min; Total Protein* 5.6 g/dL (6.0-8.3)
[2022-03-03 11:30] LABS: Alanine Aminotransferase* 18 U/L (4-50); Blood Urea Nitrogen* 24 mg/dL (7-30); Glucose* 88 mg/dL (60-115); Lipase* 15 U/L (23-300); Magnesium* 1.8 mg/dL (1.5-2.6)
[2022-03-03 11:39] LABS: NT Pro B Type NatriureticPept* 406 PG/mL (0-125)
[2022-03-03 11:41] LABS: C Reactive Protein* 21.7 mg/dL (0.5-1.0)
[2022-03-03 11:43] LABS: Procalcitonin* 0.39 ng/mL (<0.50)
[2022-03-03 11:44] LABS: C Reactive Protein* 22.1 mg/dL (0.5-1.0); Troponin I* < 0.01 ng/mL (0.01-0.04)
[2022-03-03 11:54] LABS: Procalcitonin* 0.42 ng/mL (<0.50)
--- NOTE | 2022-03-03 12:25 | NUTR.NU ---
RDN with nutrition screen related to history of lung cancer with mets, actively receiving chemotherapy with weight loss. RDN visited with patient whom reported his taste has changed due to treatment which is making it difficult for him to eat adequate amounts. Patient's current weight 158 lbs; weight 11/30/21 166 lbs (-8lbs, 4.8%); weight 10/27/21 175.5 lbs (-17 lbs, 9.6%). BMI is currently overweight at 26.3 kg/m2. Weight loss is not significant at this time, however has been a gradual loss. RDN offered diet education, however patient declined. RDN offered supplements/snacks, patient declined. RDN informed patient to let staff know of any questions or concerns. RDN will continue to monitor and follow-up prn.
--- NOTE | 2022-03-03 12:50 | PM.IMHP1 ---
Hospitalist- H&P: HPI History of Present Illness Date Seen: 03/03/22 Chief complaint: Breathing Problems (Post Chemo) Narrative: ADMISSION HISTORY AND PHYSICAL - HOSPITALIST Chief Complaint: coughing more, more SOB HPI: Gene has known stage IV lung cancer, RML and has been coughing more than usual and more short of breath than baseline. He has had pneumonia before (after 1st round of chemo) and thinks he has this again. has felt hot, low energy, and poor appetite. He recently completed a round of pallative chemo therapy. No coughing blood. In ED Baseline anemia has gotten a little bit worse 10.7 down to 9.4 PH is normal this morning Mildly hyponatremic Elevated CRP Negative respiratory panel Chest x-ray showed: 1. Slightly increased moderate right pleural effusion. Probable small left pleural effusion. 2. Increased right perihilar patchy consolidation in the region of known mass could represent a superimposed infectious process. 3. Cardiomegaly. I've updated the PFSH, medications and allergies in the [facility] tabs. INVESTIGATIONS: LABS/MICRO/ECG/IMAGING This morning I repeated some of his labs to reveal a negative troponin, stable but still elevated CRP, no change in his white blood cell count which is normal. X-ray shows Progressive dense infiltrate and atelectasis right lower lobe and right middle lobe with right suprahilar/perihilar infiltrate. Minimal infiltrate or atelectasis left lung base. Cardiac enlargement. Degenerative change of the shoulders. Postsurgical changes of the lumbar spine from fusion,incompletely visualized. EKG NSR, Nml rate. REVIEW OF SYSTEMS: 12-point ROS completed with patient and negative unless otherwise stated in HPI or below. PHYSICAL EXAM: CODE STATUS: DNR/DNI CONSTITUTIONAL: [place]. initially when I came in - he seemed to be having a lot of pleuritic chest pain in the left chest. VITAL SIGNS: see record. HEENT: Normocephalic, atraumatic. PERRL, EOMI, conjunctivae pink, no scleral icterus. Ears and nose externally normal. Pharynx normal. NECK: No JVD. No carotid bruit, no thyromegaly, no adenopathy. CHEST: decreased globally on the right; no wheeze. HEART: S1 and S2 normal. No harsh murmurs. Edema MUSCULOSKELETAL: No gross joint deformity or swelling. NEURO: Cranial nerves intact. Grossly intact. No asymmetric findings. SKIN: No rashes, petechiae, concerning changes PSYCHIATRIC: Euthymic. ADMIT TO MEDSURG: FLOOR CARE DVT: Lovenox GI: PO intake Time spent: 70 minutes examining patient, conferring with family and patient, care staff, developing care plan 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 Left inguinal hernia Lumbago Lung neoplasm Myalgia and myositis, unspecified Stage IV adenocarcinoma of lung Thoracic or lumbosacral neuritis or radiculitis Surgical History History of total right knee replacement S/P prostatectomy S/P rotator cuff repair Social History Smoking Status: Former smoker What tobacco products do you use: cigarettes Smoking quit date/years: <= 15 years ago Do you use any of these nicotine containing products: None Nicotine containing products detail: Quit smoking in May 2021 Second hand tobacco smoke exposure: No How often do you have a drink containing alcohol: 2-3 times a week Alcohol type: beer How many standard drinks containing alcohol do you have on a typical day: 1 or 2 How often do you have six or more drinks on one occasion: Never AUDIT-C Alcohol total score: 3 Non-prescribed substance use: denies use Caffeine: Yes (1 cup coffee/day) service: Yes Meds Home Medications and Allergies Home Medications Medication Instructions Recorded Confirmed Type escitalopram oxalate 10 mg tablet 10 mg PO DAILY 10/28/21 03/02/22 History omeprazole 40 mg capsule,delayed 40 mg PO DAILY 10/28/21 03/02/22 History release ondansetron 8 mg disintegrating 8 mg PO Q8H PRN 10/28/21 02/25/22 History tablet tadalafil 20 mg tablet 20 mg PO DAILY PRN 10/28/21 03/03/22 History colchicine 0.6 mg tablet 0.6 mg PO BID PRN 12/14/21 03/02/22 History folic acid 400 mcg tablet 0.4 mg PO DAILY 12/14/21 03/03/22 History diltiazem HCl 240 mg 240 mg PO Q24H 02/01/22 03/02/22 History capsule,extended release 24 hr aspirin 81 mg tablet,delayed 81 mg PO DAILY 02/19/22 03/03/22 History release dextromethorphan-guaifenesin 10 10 ml PO Q4-6H PRN 02/25/22 03/02/22 History mg-100 mg/5 mL oral syrup Allergies Allergy/AdvReac Type Severity Reaction Status Date / Time No Known Drug Allergies Allergy Verified 03/02/22 19:40 Exam Const: Vital Signs, click to edit/add: Vital Signs - 24 hr 03/02/22 19:38 03/02/22 19:52 03/02/22 20:06 Temperature 98.7 F Pulse Rate Pulse Rate [Left P ulse Oximeter] Pulse Rate [Right Pulse Oximeter] 105 H Respiratory Rate 22 Blood Pressure Blood Pressure [Le ft Arm] Blood Pressure [Ri ght Arm] Blood Pressure [Ri ght Upper Arm] 117/77 Pulse Oximetry 83 L 91 91 Oxygen Delivery Me thod Room Air Nasal Cannula Oxygen Flow Rate 2 03/02/22 20:32 03/02/22 21:02 03/02/22 21:32 Temperature Pulse Rate 92 94 92 Pulse Rate [Left P ulse Oximeter] Pulse Rate [Right Pulse Oximeter] Respiratory Rate 20 20 20 Blood Pressure 117/69 116/75 107/69 Blood Pressure [Le ft Arm] Blood Pressure [Ri ght Arm] Blood Pressure [Ri ght Upper Arm] Pulse Oximetry 91 91 92 Oxygen Delivery Me thod Nasal Cannula Nasal Cannula Nasal Cannula Oxygen Flow Rate 2 2 2 03/02/22 22:02 03/02/22 22:32 03/02/22 23:02 Temperature Pulse Rate 91 90 90 Pulse Rate [Left P ulse Oximeter] Pulse Rate [Right Pulse Oximeter] Respiratory Rate Blood Pressure 103/61 110/74 106/66 Blood Pressure [Le ft Arm] Blood Pressure [Ri ght Arm] Blood Pressure [Ri ght Upper Arm] Pulse Oximetry 91 90 93 Oxygen Delivery Me thod Nasal Cannula Nasal Cannula Nasal Cannula Oxygen Flow Rate 2 2 2 03/02/22 23:03 03/02/22 23:30 03/02/22 23:31 Temperature Pulse Rate 95 86 88 Pulse Rate [Left P ulse Oximeter] Pulse Rate [Right Pulse Oximeter] Respiratory Rate Blood Pressure 104/72 Blood Pressure [Le ft Arm] Blood Pressure [Ri ght Arm] Blood Pressure [Ri ght Upper Arm] Pulse Oximetry 93 92 93 Oxygen Delivery Me thod Oxygen Flow Rate 03/03/22 01:51 03/03/22 01:57 03/03/22 00:18 Temperature 98.2 F Pulse Rate Pulse Rate [Left P ulse Oximeter] 89 Pulse Rate [Right Pulse Oximeter] Respiratory Rate 26 H 26 H Blood Pressure Blood Pressure [Le ft Arm] Blood Pressure [Ri ght Arm] 106/74 Blood Pressure [Ri ght Upper Arm] Pulse Oximetry 89 89 92 Oxygen Delivery Me thod Nasal Cannula Nasal Cannula Oxygen Flow Rate 2 2 03/03/22 03:00 03/03/22 07:00 03/03/22 07:00 Temperature 98.4 F Pulse Rate Pulse Rate [Left P ulse Oximeter] 89 87 Pulse Rate [Right Pulse Oximeter] Respiratory Rate 26 H 24 24 Blood Pressure Blood Pressure [Le ft Arm] Blood Pressure [Ri ght Arm] 111/68 Blood Pressure [Ri ght Upper Arm] Pulse Oximetry 91 88 Oxygen Delivery Me thod Nasal Cannula Nasal Cannula Oxygen Flow Rate 3 3 03/03/22 07:00 03/03/22 11:00 Temperature 98.4 F 98.1 F Pulse Rate Pulse Rate [Left P ulse Oximeter] 87 81 Pulse Rate [Right Pulse Oximeter] Respiratory Rate 24 20 Blood Pressure Blood Pressure [Le ft Arm] 112/72 Blood Pressure [Ri ght Arm] 106/63 Blood Pressure [Ri ght Upper Arm] Pulse Oximetry 88 94 Oxygen Delivery Me thod Nasal Cannula Nasal Cannula Oxygen Flow Rate 3 3 Hospitalist - H&P: Result Labs Labs: Short CBC 03/02/22 03/03/22 Range/Units 20:00 11:02 WBC 9.40 6.07 (4.50-11.00) K/uL Hgb 9.4 L 9.3 L (13.5-17.5) gm/dL Hct 29.9 L 29.1 L (37.0-53.0) % Plt Count 258 249 (140-440) K/uL BMP 03/02/22 03/03/22 20:00 11:02 Sodium 133 L 133 L Potassium 3.8 3.7 Chloride 99 98 Carbon Dioxide 26 27 BUN 26 24 Creatinine 0.5 0.5 Glucose 101 88 Calcium 9.4 9.0 Cardiac Enzymes 03/02/22 03/03/22 Range/Units 20:00 11:02 Troponin I < 0.01 L < 0.01 L (0.01-0.04) ng/mL Liver Function 03/02/22 03/03/22 Range/Units 20:00 11:02 Total Bilirubin 0.5 0.3 (0.1-1.5) mg/dL AST 22 24 (12-35) U/L ALT 18 18 (4-50) U/L Alkaline Phosphatase 155 H 144 (40-150) U/L Albumin 3.1 L 2.9 L (3.3-5.0) g/dL Assessment and Plan Assessment and plan (1) Acute respiratory failure with hypoxia: Problem comment: PNA superimposed on known RML stage IV adenoca of the lung. CXR this morning shows worsening disease: Progressive infiltrate/volume loss right lower lobe and right mid lung. -rocephin, azithromycin -NC oxygen support -IV solu-medrol -nebs -RT to eval, aerobika/ISP Status: Acute (2) Stage IV adenocarcinoma of lung: Problem comment: Stage IV lung cancer, mets to the right hip and left shoulder. S/P treatment with chemotherapy and radiation therapy Carboplatin, pemetrexed and pembrolizumab, status post 2 cycles, radiation from 11/11-11/25/2021 PET imaging showing progressive metastatic disease in the bone. Status post surgery at [facility] and initiation of ramcirumab and docetaxel Status: Acute (3) Pneumonia: Problem comment: right perihilar infiltrate Status: Acute (4) Bone metastases: Status: Acute (5) Hearing loss: Status: Acute
[2022-03-03] MEDS: dilTIAZem 240 MG CAP (CD) PO (13:41)
[2022-03-03] MEDS: METHYLPREDNISOLONE SOD SUCC 62.5 MG/ML (125) 125 MG IVP ×2 (13:42→19:04)
[2022-03-03] MEDS: ENOXAPARIN 40 MG/0.4 ML INJ SUBCUT (14:23)
[2022-03-03] MEDS: fentaNYL 25 MCG/HR PATCH 1 PATCH TRANSDERMA (14:23)
--- NOTE | 2022-03-03 14:45 | PC.NURSE ---
End of Shift: Patient pleasant, cooperative, and [place]. Patient vitally stable, lung course and with wheezes, BS WNL, IV intact. patient has rated pain at most an 8/10, chest pain due to coughing. Patient was given tylenol once, 10 mg oxy once, 50mg of tramadol once, 4 mg of morphine once, and a fentanyl patch applied to the right shoulder. Patient 1 assist, walker, gb. Patient currently on 2 L of oxygen by [place] with sats in the low 90's. Patient tolerating regular diet. Patient has not urinated this shift, patient encouraged to drink more water, as he has drank minimal fluids. Patient has intermittent, moist, productive cough, with clear, thick sputum.
[2022-03-03] MEDS: BUDESONIDE 0.5 MG/2ML NEB NEB ×2 (16:20→21:13)
--- NOTE | 2022-03-03 22:24 | PC.NURSE ---
Nursing Care Hours: [id number] Pt this shift calm and cooperative with cares, pleasant and conversational. Titrate supplemental oxygen from 2L to 1L, maintain spO2 above 88% while sitting up in chair. Extension piece for oxygen attached so pt can walk to bathroom with nasal cannula. Pt walking independently in room with walker, insurance writer observed first, gait steady. Educated on pursed lip breathing, especially when ambulating in room and use of tripod stance when SOB to aid in more effective breathing. Pt receptive but needs to practice when not SOB as pt struggles to use technique when hungry for air per pt. Educated on Aerobika use and benefit. Used with nebulizers, encouraged to rinse mouth after use Middle and lower lung sounds have fine crackles. Productive cough, thick cream colored mucus expelled. Declines guaifenesin d/t taste. Pain reported in chest from coughing, shoulders, and R hip. Surgery to R hip less than 1 month per pt. Pt prefers oxycodone over morphine for pain. Pain rating constant at 5/10. Encouraged to increase fluid intake. Pt compliant and voided moderate amount of dark bhakti urine. Edema bilat legs managed with TEDs
[2022-03-04] VITALS (7 sets, daily range): BP systolic 101–126; BP diastolic 65–79; PULSE 77–94; RESP 16–22; TEMP 36.4–36.8; O2SAT 90–92
[2022-03-04] MEDS: IPRAT-ALBUT 0.5-2.5 MG/3 ML NEB 1 NEB IH ×6 (00:20→20:35)
[2022-03-04] MEDS: METHYLPREDNISOLONE SOD SUCC 62.5 MG/ML (125) 125 MG IVP ×2 (01:32→07:27)
[2022-03-04] MEDS: OXYCODONE 5 MG TABLET PO ×2 (01:33→07:32)
[2022-03-04] MEDS: MORPHINE 4 MG/ML INJ IVP ×2 (03:59→19:45)
[2022-03-04] MEDS: OMEPRAZOLE 20 MG CAPSULE DR 40 MG PO (06:30)
[2022-03-04 06:53] LABS: Hemoglobin* 9.8 gm/dL (13.5-17.5); Mean Corpuscular HGB Conc 33 gm/dL (32-36); Mean Corpuscular Hemoglobin 29 pg (26-34); Mean Corpuscular Volume 89 fL (80-100); Platelet Count* 284 K/uL (140-440); Red Blood Count 3.37 m/uL (4.30-5.90); White Blood Count* 10.28 K/uL (4.50-11.00)
[2022-03-04 06:55] LABS: HCO3 VBG 27 mmol/L (21-28); PCO2 VBG 39 mmHG (40-50); PO2 VBG 48.7 mmHG (25-47); pH VBG 7.455 (7.32-7.43)
--- NOTE | 2022-03-04 07:00 | PC.NURSE ---
END OF SHIFT NOTE: PT PLEASANT AND COOPERATIVE. PT AMBULATES INDEPENDENTLY WITH WALKER FROM CHAIR TO BED. PT ENCOURAGED ORAL INTAKE. PT ENCOURAGED AEROBIKA USE. PT VSS ON 1L SUPPLEMENTAL OXYGEN VIA NC. AFEBRILE. 3+ PITTING EDEMA TO BLE. FENTANYL PATCH TO RIGHT SHOULDER IN PLACE. PT [place]; USES HEARING AIDS.
[2022-03-04 07:03] LABS: Slide Review Reflex No
[2022-03-04 07:20] LABS: Chloride* 97 mmol/L (96-114)
[2022-03-04 07:21] LABS: Potassium* 3.8 mmol/L (3.6-5.1); Sodium* 132 mmol/L (135-149)
[2022-03-04 07:23] LABS: Creatinine* 0.4 mg/dL (0.5-1.5); Est. Creatinine Clearance* 67.48; Estimated Glomerular Filt Rate 124 ml/min
[2022-03-04 07:24] LABS: Blood Urea Nitrogen* 24 mg/dL (7-30); Calcium* 9.4 mg/dL (8.4-10.6); Carbon Dioxide* 27 mmol/L (20-32); Glucose* 183 mg/dL (60-115)
[2022-03-04 07:25] LABS: Magnesium* 1.9 mg/dL (1.5-2.6)
[2022-03-04] MEDS: ACETAMINOPHEN 325 MG TABLET PO (07:28)
[2022-03-04 07:32] LABS: NT Pro B Type NatriureticPept* 337 PG/mL (0-125)
[2022-03-04 07:40] LABS: Procalcitonin* 0.29 ng/mL (<0.50)
[2022-03-04 07:41] LABS: C Reactive Protein* 20.9 mg/dL (0.5-1.0)
[2022-03-04] MEDS: dilTIAZem 240 MG CAP (CD) PO (08:42)
[2022-03-04] MEDS: ESCITALOPRAM 10 MG TABLET PO (08:43)
[2022-03-04] MEDS: ASPIRIN 81 MG TABLET EC PO (08:43)
[2022-03-04] MEDS: AZITHROMYCIN 250 MG TABLET PO (08:43)
[2022-03-04] MEDS: FOLIC ACID 1 MG TABLET 0.5 MG PO (08:43)
[2022-03-04] MEDS: BUDESONIDE 0.5 MG/2ML NEB NEB ×2 (08:43→20:36)
[2022-03-04] MEDS: cefTRIAXone 2 GM in 0.9 % SODIUM CHLORIDE Mini-bag 100 ML IVPB (08:49)
--- NOTE | 2022-03-04 11:12 | PM.IMPN1 ---
Progress Note: A&P Assessment and plan (1) Acute respiratory failure with hypoxia: Problem details: PNA superimposed on known RML stage IV adenoca of the lung. CXR yesterday shows worsening disease: Progressive infiltrate/volume loss right lower lobe and right mid lung. -rocephin, azithromycin -NC oxygen support -IV solu-medrol -nebs -RT to eval, aerobika/ISP Status: Acute (2) Stage IV adenocarcinoma of lung: Problem details: Stage IV lung cancer, mets to the right hip and left shoulder. S/P treatment with chemotherapy and radiation therapy -fentanyl for better pain management. Carboplatin, pemetrexed and pembrolizumab, status post 2 cycles, radiation from 11/11-11/25/2021 PET imaging showing progressive metastatic disease in the bone. Status post surgery at [facility] and initiation of ramcirumab and docetaxel Status: Acute (3) Pneumonia: Problem details: right middle and lower lobe consolidation. Status: Acute (4) Bone metastases: Status: Acute (5) Hearing loss: Status: Acute Plan home tomorrow, with or without oxygen. improving rapidly. Subjective Date Seen: 03/04/22 Interval history: Daily Progress Note - Hospital Medicine Day #: 3 CC: stage IV lung cancer, pneumonia, hypoxia OVERNIGHT UPDATES FROM STAFF & MED, LAB, IMAGING UPDATES pt feels much improved, pain in chest/pleurisy is improving. placed fentanyl patch last night. continuing treatment for RML and RLL pneumonia. down to 1L support. CBC reflects stable white blood cell count, hemoglobin, platelets PH is 7.5, stable pCO2 and bicarb Stable chronic hyponatremia CRP down trending, BNP down trending Procalcitonin down trending Review of Systems: See subjective Cardiac: No new chest pain/pressure/palpitations. Respiratory: no new dyspnea. GI: No abdominal bloating Objective: much more alert; talking without dyspnea. 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 Vitals: see above Lungs: congest; wheezy Cardiac: S1S2. Disposition/Potential discharge - Likely to return to previous living situation. Total time is 35 minutes with greater than 50% spent in counseling and coordination of care. Exam Const: Vital Signs, click to edit/add: Vital Signs - 24 hr 03/03/22 15:00 03/03/22 15:00 03/03/22 15:00 Temperature 97.5 F L Pulse Rate [Left P ulse Oximeter] 81 81 Respiratory Rate 18 18 Blood Pressure [Le ft Arm] Blood Pressure [Ri ght Arm] 103/66 Pulse Oximetry 92 92 Oxygen Delivery Me thod Nasal Cannula Nasal Cannula Oxygen Flow Rate 2 2 03/03/22 19:00 03/04/22 00:10 03/04/22 00:10 Temperature 97.8 F Pulse Rate [Left P ulse Oximeter] 81 78 Respiratory Rate 24 20 20 Blood Pressure [Le ft Arm] Blood Pressure [Ri ght Arm] 103/64 Pulse Oximetry 89 91 Oxygen Delivery Me thod Nasal Cannula Nasal Cannula Oxygen Flow Rate 1 1 03/04/22 00:10 03/04/22 00:10 03/04/22 03:50 Temperature 97.6 F 97.6 F Pulse Rate [Left P ulse Oximeter] 78 85 Respiratory Rate 20 20 Blood Pressure [Le ft Arm] 119/78 Blood Pressure [Ri ght Arm] 104/70 Pulse Oximetry 91 91 92 Oxygen Delivery Me thod Nasal Cannula Nasal Cannula Oxygen Flow Rate 1 1 03/04/22 07:00 03/04/22 07:00 03/04/22 07:00 Temperature 98.2 F Pulse Rate [Left P ulse Oximeter] 94 94 Respiratory Rate 20 20 20 Blood Pressure [Le ft Arm] Blood Pressure [Ri ght Arm] 115/65 Pulse Oximetry 90 90 Oxygen Delivery Me thod Nasal Cannula Nasal Cannula Oxygen Flow Rate 1 1 Labs Labs: Laboratory Results - last 24 hr 03/02/22 03/03/22 03/03/22 20:00 11:02 11:02 WBC 6.07 RBC 3.17 L Hgb 9.3 L Hct 29.1 L MCV 92 MCH 29 MCHC 32 Plt Count 249 VBG pH VBG pCO2 VBG pO2 VBG HCO3 Sodium 133 L Potassium 3.7 Chloride 98 Carbon Dioxide 27 BUN 24 Creatinine 0.5 Estimated Creat Clear 67.48 Estimated GFR 116 Glucose 88 Lactate Calcium 9.0 Magnesium 1.8 Total Bilirubin 0.3 AST 24 ALT 18 Alkaline Phosphatase 144 Troponin I < 0.01 L C-Reactive Protein 21.7 H 22.1 H NT-Pro-B Natriuret Pep 406 H Total Protein 5.6 L Albumin 2.9 L Lipase 15 L Procalcitonin 0.39 0.42 03/03/22 03/04/22 03/04/22 11:02 06:40 06:40 WBC 10.28 RBC 3.37 L Hgb 9.8 L Hct 30.0 L MCV 89 MCH 29 MCHC 33 Plt Count 284 VBG pH 7.425 VBG pCO2 44 VBG pO2 30.3 VBG HCO3 29 H Sodium 132 L Potassium 3.8 Chloride 97 Carbon Dioxide 27 BUN 24 Creatinine 0.4 L Estimated Creat Clear 67.48 Estimated GFR 124 Glucose 183 H Lactate 1.2 Calcium 9.4 Magnesium 1.9 Total Bilirubin AST ALT Alkaline Phosphatase Troponin I C-Reactive Protein 20.9 H NT-Pro-B Natriuret Pep 337 H Total Protein Albumin Lipase Procalcitonin 0.29 03/04/22 06:40 WBC RBC Hgb Hct MCV MCH MCHC Plt Count VBG pH 7.455 H VBG pCO2 39 L VBG pO2 48.7 H VBG HCO3 27 Sodium Potassium Chloride Carbon Dioxide BUN Creatinine Estimated Creat Clear Estimated GFR Glucose Lactate Calcium Magnesium Total Bilirubin AST ALT Alkaline Phosphatase Troponin I C-Reactive Protein NT-Pro-B Natriuret Pep Total Protein Albumin Lipase Procalcitonin
[2022-03-04] MEDS: OXYCODONE 5 MG TABLET 10 MG PO ×3 (11:22→20:36)
[2022-03-04] MEDS: ENOXAPARIN 40 MG/0.4 ML INJ SUBCUT (14:30)
--- NOTE | 2022-03-04 18:31 | PC.NURSE ---
End of Shift: Patient pleasant and cooperative. Patient vitally stable, lungs with crackles, BS WNL, IV SL, and intact. Patient on 1 L O2 nasal cannula with sats in low to mid 90's. While patient was sleeping 3 L O2 was used with sats in low 90's. Patient independent with walker in room. Patient rates pain at most 8/10, tylenol given once, and 10mg of oxy given twice.
--- NOTE | 2022-03-04 22:56 | PC.NURSE ---
End of Shift ([id number]): Patient pleasant and cooperative. Afebrile. O2 sats low 90s on 1L. SOB with any activity. PRN Morphine x1 for pain 9/10 and SOB at start of shift. Pain decreased to 6/10 and PRN oxycodone given with night time medications.
[2022-03-05] MEDS: IPRAT-ALBUT 0.5-2.5 MG/3 ML NEB 1 NEB IH ×3 (00:25→07:32)
[2022-03-05] MEDS: OXYCODONE 5 MG TABLET 10 MG PO ×2 (00:26→07:30)
[2022-03-05 03:00] VITALS: RESP 20; O2SAT 92
[2022-03-05] MEDS: OMEPRAZOLE 20 MG CAPSULE DR 40 MG PO (05:58)
--- NOTE | 2022-03-05 06:55 | PC.NURSE ---
END OF SHIFT NOTE: PT PLEASANT AND COOPERATIVE WITH CARES. VSS ON 1L NC. LS WITH ANTERIOR CRACKLES AND POSTERIOR MID LOBE EXP CRACKLES. PT DESATS OFF OF OXYGEN TO MID 80'S. PT SOB WITH ACTIVITY. PT [place]. PT IS TO DISCHARGE HOME TODAY WITH .
[2022-03-05 07:00] VITALS: BP 104/69; PULSE 82; RESP 20; TEMP 36.6; O2SAT 92
[2022-03-05 07:24] LABS: HCO3 VBG 28 mmol/L (21-28); PCO2 VBG 39 mmHG (40-50); PO2 VBG 38.1 mmHG (25-47); pH VBG 7.456 (7.32-7.43)
[2022-03-05] MEDS: predniSONE 20 MG TABLET 40 MG PO (07:31)
[2022-03-05] MEDS: ACETAMINOPHEN 325 MG TABLET PO (07:32)
[2022-03-05 07:42] LABS: Chloride* 98 mmol/L (96-114); Sodium* 134 mmol/L (135-149)
[2022-03-05 07:43] LABS: Potassium* 3.7 mmol/L (3.6-5.1)
[2022-03-05 07:45] LABS: Creatinine* 0.5 mg/dL (0.5-1.5); Est. Creatinine Clearance* 67.48; Estimated Glomerular Filt Rate 116 ml/min
[2022-03-05 07:46] LABS: Blood Urea Nitrogen* 26 mg/dL (7-30); Calcium* 9.9 mg/dL (8.4-10.6); Carbon Dioxide* 27 mmol/L (20-32); Glucose* 150 mg/dL (60-115)
[2022-03-05 07:49] LABS: C Reactive Protein* 8.2 mg/dL (0.5-1.0)
[2022-03-05] MEDS: dilTIAZem 240 MG CAP (CD) PO (08:50)
[2022-03-05] MEDS: ASPIRIN 81 MG TABLET EC PO (08:50)
[2022-03-05] MEDS: ESCITALOPRAM 10 MG TABLET PO (08:51)
[2022-03-05] MEDS: levoFLOXacin 500 MG TABLET PO (08:51)
[2022-03-05] MEDS: FOLIC ACID 1 MG TABLET 0.5 MG PO (08:52)
[2022-03-05] MEDS: BUDESONIDE 0.5 MG/2ML NEB NEB (08:52)
[2022-03-05 09:21] VITALS: O2SAT 85; O2SAT 90; O2SAT 92
--- NOTE | 2022-03-05 09:44 | W.PM.HOT ---
Acute Home Oxygen Therapy Acute Home Oxygen Therapy Provider Note Provider Note: Patient was admitted on 03/03/22 at 09:05 and will be discharging on 03/05/22 Patient is desaturating with SATs of 85% on room air due to stage IV lung cancer. Alternative therapies have been attempted and have not been successful in maintaining the patient's saturation level above 88%. Supplemental O2 is required. This patient is mobile within the home and requires portability.
[2022-03-05] MEDS: MORPHINE 4 MG/ML INJ IVP (10:03)
--- NOTE | 2022-03-05 10:08 | PC.SOCIAL ---
Social work: Per MD order for home oxygen, met with pt regarding options for home delivered oxygen agencies. Pt states he wants to use [facility]. Called and confirmed [facility] pt's area and is contracted with his insurance. Faxed information to [facility]. Pt will be given a portable concentrator unit stocked by [facility] at the hospital prior to discharge. Pt has a family member arranged to pick him up for discharge at noon today and no concerns or questions for social work. tailings worker to follow up as needed.
[2022-03-05 11:00] VITALS: PULSE 87; RESP 22; O2SAT 90
--- NOTE | 2022-03-05 12:20 | PC.NURSE ---
Patient on 1 liter of oxygen this morning. Oxygen saturations 93% at rest. Pt has a cough that is moist and productive. At start of the shift, patient had a hard time clearing secretions/breathing. Nebulizer given at that time and that helped patient to loosen and clear secretions. Up with SBA, GB and walker. Oxycodone given for pain management along with IV morphine. Fentanyl patch remains in place to patient's right shoulder. Pt instructed that the patch is due to be changed tomorrow. Pt plans to follow up this afternoon at a Pain clinic in [place] - Apt is set for 2pm to adjust pain medications/plan. All discharge instructions given to patient. RT educated patient on oxygen use. Pt sent with the portable oxygen unit. Daughter also present for discharge instructions. All questions were answered and patient was escorted to front entrance via wheelchair with all belongings.
--- NOTE | 2022-03-05 12:34 | P.DS_ITS ---
DS: Providers Provider Date Seen: 03/05/22 Date of admission: 03/03/22 09:05 Primary care physician: Marco Jarrett MD Admitting Clinician: Sedrick Ricardo MD Attending Physician on discharge: KINJAL FINK MD [facility] Date of Discharge: 03/05/22 DS: Diagnosis Discharge Diagnosis (1) Acute respiratory failure with hypoxia: Status: Acute Problem details: PNA superimposed on known RML stage IV adenoca of the lung. CXR yesterday shows worsening disease: Progressive infiltrate/volume loss right lower lobe and right mid lung. -rocephin, azithromycin - TRANSITIONED to oral Levaquin -NC oxygen support -IV solu-medrol TRANSITION -to oral prednisone -nebs (2) Stage IV adenocarcinoma of lung: Status: Acute Problem details: Stage IV lung cancer, mets to the right hip and left shoulder. S/P treatment with chemotherapy and radiation therapy -fentanyl for better pain management. Carboplatin, pemetrexed and pembrolizumab, status post 2 cycles, radiation from 11/11-11/25/2021 PET imaging showing progressive metastatic disease in the bone. Status post surgery at [facility] and initiation of ramcirumab and docetaxel (3) Pneumonia: Status: Acute Problem details: right middle and lower lobe consolidation. (4) Bone metastases: Status: Acute DS: Summary Hospital Course Hospital Course: HOSPITALIST DISCHARGE SUMMARY ATTENDING PHYSICIAN: Kinjal Fink MD FINAL DIAGNOSIS: Right middle and lower lobe pneumonia superimposed on known stage IV adenocarcinoma of the right perihilar middle lobe. Chronic pain with bone metastasis COPD HOSPITAL FOLLOWUP ISSUES: 1. Palliative care verses active treatment versus hospice. We went through his choices. At this time he would like to combine active treatment with palliative care. 2. Home O2 prescribed with the need for 3 L with activity - follow-up with Oncology, primary care and palliative care. REFERRALS WHILE ADMITTED: RT, PT, OT REFERRALS AFTER DISCHARGE: Palliative care BRIEF HOSPITAL COURSE: Gene came in with a new hypoxia and worsening chest pain. He was diagnosed with a pneumonia in the right middle and lower lobes. He was given IV ceftriaxone and azithromycin. His max oxygen needs for about 3 L. He had a tremendous cough and chest pain, multifactorial in nature. He has bone Mets, pleurisy, inflammation. In addition to antibiotics, nebulizers, aerobic he was also placed on a fentanyl patch. This seemed id cyst his recovery. He had less chest pain. He had less air hunger. He was discharged on oral Levaquin, oral steroids, p.r.n. Ativan fentanyl patch. Prior authorization was requested through his insurance carrier. SUBSTANTIVE NOTATIONS ON IMAGING, LAB, MICROBIOLOGY/PATHOLOGY STUDIES: Last chest x-ray done well in inpatient showed progressive infiltrates in the right middle and lower lobes. DISCHARGE MEDICATIONS: See Reconciled list - SIGNIFICANT CHANGES: Fentanyl 25 mcg Q 72 hours via transdermal patch Ativan 0.5-1 mg q.4-6 hours p.r.n. air hunger Prednisone taper Levaquin 500 mg x 7 days REVIEW OF SYSTEMS Stable chronic chest pain dyspnea Pain controlled No voiding difficulties Tolerating diet challenge PHYSICAL EXAM: CONSTITUTIONAL: Chronically ill appearing. Alopecia. VITAL SIGNS: see record. HEENT: Normocephalic, atraumatic. PERRL, EOMI, conjunctivae pink, no scleral icterus. Ears and nose externally normal. Pharynx normal. NECK: No JVD. No carotid bruit, no thyromegaly, no adenopathy. CHEST: Respiratory wheezes. HEART: S1 and S2 normal. Edema ABDOMEN: Soft, nontender. Normal bowel sounds. MUSCULOSKELETAL: No gross joint deformity or swelling. NEURO: Cranial nerves intact. Grossly intact. No asymmetric findings. SKIN: No rashes, petechiae, concerning changes PSYCHIATRIC: Mood euthymic. DISPOSITION: Home with Time spent on discharge 37 minutes. Status at Discharge Functional status at discharge: uses cane/walker Overall status at discharge: patient is progressing back to baseline Time Spent with Patient Time attestation: Total time spent providing and/or coordinating discharge services: Time spent: Greater than 30 minutes Exam Const: Vital Signs, click to edit/add: Vital Signs - 24 hr 03/04/22 15:00 03/04/22 15:00 03/04/22 15:00 Temperature 98.2 F Pulse Rate [Left P ulse Oximeter] 77 77 Respiratory Rate 16 16 16 Blood Pressure [Le ft Arm] 105/66 Pulse Oximetry 91 91 Oxygen Delivery Me thod Nasal Cannula Nasal Cannula Oxygen Flow Rate 1 1 03/04/22 19:00 03/04/22 23:40 03/04/22 23:40 Temperature 98.1 F Pulse Rate [Left P ulse Oximeter] 89 80 Respiratory Rate 22 20 20 Blood Pressure [Le ft Arm] 126/79 Pulse Oximetry 90 92 Oxygen Delivery Me thod Nasal Cannula Nasal Cannula Oxygen Flow Rate 1 1 03/04/22 23:40 03/04/22 23:40 03/05/22 03:00 Temperature 98.2 F Pulse Rate [Left P ulse Oximeter] 89 Respiratory Rate 20 20 Blood Pressure [Le ft Arm] 101/70 Pulse Oximetry 92 92 92 Oxygen Delivery Me thod Nasal Cannula Nasal Cannula Oxygen Flow Rate 1 1 03/05/22 07:00 03/05/22 07:00 03/05/22 07:00 Temperature 98 F Pulse Rate [Left P ulse Oximeter] 82 82 Respiratory Rate 20 20 20 Blood Pressure [Le ft Arm] 104/69 Pulse Oximetry 92 92 Oxygen Delivery Me thod Nasal Cannula Nasal Cannula Oxygen Flow Rate 1 1 03/05/22 11:00 Temperature Pulse Rate [Left P ulse Oximeter] 87 Respiratory Rate 22 Blood Pressure [Le ft Arm] Pulse Oximetry 90 Oxygen Delivery Me thod Room Air Oxygen Flow Rate DS: Data Data Completed and Pending Labs on day of discharge: Labs from last 24 hours 03/05/22 03/05/22 07:08 07:08 VBG pH 7.456 H VBG pCO2 39 L VBG pO2 38.1 VBG HCO3 28 Sodium 134 L Potassium 3.7 Chloride 98 Carbon Dioxide 27 BUN 26 Creatinine 0.5 Estimated Creat Clear 67.48 Estimated GFR 116 Glucose 150 H Calcium 9.9 C-Reactive Protein 8.2 H Preliminary micro results at discharge 03/02/22 20:00 Blood Culture - Preliminary Blood - Picc Line NO GROWTH AFTER 48 HOURS 03/02/22 20:00 Blood Culture - Preliminary Blood - Picc Line NO GROWTH AFTER 48 HOURS Discharge Plan Discharge Disposition: Home, Self-Care Date of Admission: 03/03/22 09:05 Primary Care Provider: Marco Jarrett Condition: Stable Anticipated Discharge Date/Time: 03/05/22 09:17 Discharge Medications: New fentanyl 25 mcg/hr Patch 72 Hour 1 patch transdermal Q72H Qty: 10 0RF lorazepam 0.5 mg Tablet 0.5 - 1 mg PO Q4H PRNQty: 30 0RF Rx Instructions: as needed for anxiety levofloxacin 500 mg Tablet 500 mg PO Q24H Qty: 7 0RF prednisone 20 mg Tablet 40 mg PO DAILYWM Qty: 11 0RF Rx Instructions: take 2 tabs (40mg) daily for three days, take 1 tab (20mg) for three days. Then take 1/2 tab (10mg) for 4 days (DME) Home Oxygen Misc See Rx Instructions .Route Qty: 1 0RF Rx Instructions: 3L NCO2 with activity Continued colchicine 0.6 mg tablet 0.6 mg PO BID PRN Hold Instructions: pharm notes interaction folic acid 400 mcg tablet 0.4 mg PO DAILY dextromethorphan-guaifenesin 10-100 mg/5 mL syrup 10 ml PO Q4-6H PRN oxycodone 10 mg tablet 10 mg PO Q4-6H PRN (Reason: pain) Qty: 30 0RF aspirin 81 mg tablet,delayed release (DR/EC) 81 mg PO DAILY codeine-guaifenesin 10-100 mg/5 mL liquid 10 ml PO Q4-6H PRN (Reason: cough) Qty: 473 1RF escitalopram oxalate 10 mg tablet 10 mg PO DAILY omeprazole 40 mg capsule,delayed release(DR/EC) 40 mg PO DAILY ondansetron 8 mg tablet,disintegrating 8 mg PO Q8H PRN tadalafil 20 mg tablet 20 mg PO DAILY PRN Rx Instructions: administer approximately 30min before sexual activity; do not use more than 1 dose per 24hrs diltiazem HCl 240 mg capsule,extended release 24hr 240 mg PO Q24H Label Comments: Take 1 Capsule (240 mg) by mouth once daily. Discharge Orders: Discharge Order (Routine); Ordered 03/05/22 Ordered By: Kinjal Fink Patient Education: Lorazepam (By mouth) (Ativan, LORazepam Intensol), Prednisone (By mouth) (predniSONE Intensol, Prednicot, Deltasone, Kirk), Fentanyl (Absorbed through the skin) (Duragesic, Ionsys, Novaplus..., Levofloxacin (By mouth) (Levaquin, Levaquin Leva-michael), COPD (Chronic Obstructive Pulmonary Disease) (DC), Pneumonia (DC) Additional Instructions: Let Pain management know you have a fentanyl patch, 25mcg, on now as of this hospitalization. Prior approval was sent for this medication to your insurance. Finish your antibiotic, prednisone taper Ativan (lorazepam) is a new med as needed for anxiety; air hunger Activity Level: Activity as Tolerated and Other Discharge Diet: Regular Follow Up Appointments: Marco Jarrett MD [Primary Care Provider] - 03/08/22 12:00 pm (Tuesday appointment as previously scheduled. 2 weeks - pt can make his own follow up appts) Forms: [employer] Info Instructions
== END 2022-03-05 12:00 | disposition home or self-care (01) | DRG 140 ==
LOC: ED 22:38 → MEDSURG 23:53
PROVIDERS: Family Medicine; Admitting Provider Internal Medicine; Emergency Provider Internal Medicine; PCP Internal Medicine Medical Oncology; Visit Provider Internal Medicine
DX: J44.0 Chronic obstructive pulmonary disease with (acute) lower respiratory infection (principal); J44.1 Chronic obstructive pulmonary disease with (acute) exacerbation; Z87.891 Personal history of nicotine dependence; J96.01 Acute respiratory failure with hypoxia; C34.81 Malignant neoplasm of overlapping sites of right bronchus and lung; C79.51 Secondary malignant neoplasm of bone; J18.9 Pneumonia, unspecified organism; E87.1 Hypo-osmolality and hyponatremia; Z99.81 Dependence on supplemental oxygen; G89.3 Neoplasm related pain (acute) (chronic); F41.9 Anxiety disorder, unspecified; M06.9 Rheumatoid arthritis, unspecified; Z85.46 Personal history of malignant neoplasm of prostate; H91.90 Unspecified hearing loss, unspecified ear
CPT/HCPCS: 36415; 71045; 80048; 80053; 82803; 83605; 83690; 83735; 83880; 84145; 84484; 85025; 85027; 86140; 87040; 87631; 93005; 94640; 94664; 94761; 99253; 99284; 99285; G0378; A9270; J0456; J0696; J1650; J1940; J2270; J2930; J7050; J7512; J7626

== ENCOUNTER 2022-03-29 10:45 | Outpatient (RCR) | payer BC, MEDICARE, SELFPAY ==
--- NOTE | 2022-01-13 15:25 | ONC.NURNOTE ---
Pt called with concerns of rib pain with taking deep breaths. Pt states he recently had femur surgery and doesn't recall having these breathing issues before surgery. Central Sterile Technician instructed pt to be evaluated in the Emergency dept. Pt verbalized understanding of plan of care.
--- NOTE | 2022-01-29 12:22 | URNOTE ---
Received request for prior auth for Docetaxel (J9171), Ramucirumab (J9308), Palonosetron (J2469) and Pegfilgrasim (J2506). Per Iris at [facility] [phone], Prior authorization is not needed for any of these medications. Call ref #[id number].
[2022-02-01 11:00] VITALS: BP 125/75; PULSE 84; RESP 20; TEMP 37.2; O2SAT 97
[2022-02-01 11:03] LABS: Hematocrit 32.2 % (37.0-53.0); Hemoglobin* 10.5 gm/dL (13.5-17.5); Immature Granulocytes Abs Auto 0.13 K/uL (0.00-0.30); Lymphocytes Percent Auto 1.5 % (20-44); Mean Corpuscular HGB Conc 33 gm/dL (32-36); Mean Corpuscular Hemoglobin 30 pg (26-34); Mean Corpuscular Volume 91 fL (80-100); Monocytes Percent Auto 4.5 % (0.0-11.0); Platelet Count* 486 K/uL (140-440); RDW Coefficient of Variation % 14.3 % (11.5-15.5); Red Blood Count 3.54 m/uL (4.30-5.90); White Blood Count* 12.51 K/uL (4.50-11.00)
[2022-02-01 11:11] LABS: Slide Review Reflex No
[2022-02-01 11:22] LABS: Albumin* 3.7 g/dL (3.3-5.0); Chloride* 100 mmol/L (96-114); Sodium* 136 mmol/L (135-149)
[2022-02-01 11:23] LABS: Potassium* 4.2 mmol/L (3.6-5.1)
[2022-02-01 11:25] LABS: Alanine Aminotransferase* 32 U/L (4-50); Alkaline Phosphatase* 148 U/L (40-150); Aspartate Amino Transferase* 30 U/L (12-35); Bilirubin Total* 0.2 mg/dL (0.1-1.5); Blood Urea Nitrogen* 21 mg/dL (7-30); Carbon Dioxide* 26 mmol/L (20-32); Creatinine* 0.5 mg/dL (0.5-1.5); Estimated Glomerular Filt Rate 116 ml/min; Glucose* 129 mg/dL (60-115); Total Protein* 6.6 g/dL (6.0-8.3)
[2022-02-01 11:26] LABS: Calcium* 10.5 mg/dL (8.4-10.6)
[2022-02-01 12:30] VITALS: PULSE 78; RESP 20; TEMP 37.4; O2SAT 97
--- NOTE | 2022-02-01 13:03 | ONC.NURNOTE ---
Patient brought to ED for further evaluation. Patient comes in today for a new chemo. Patient complained of being very short of breath and having a terrible cough, specifically when he lays down at night. States My tells me i turn purple and it scares her. Lung sounds were clear bilaterally. Lower extremity pitting edema noted R>L. Denies fever at home. Is on a blood thinner for his recent surgery he had 3 weeks ago. Report given to ZAIN Arteaga in ED. Patient and belongings brought to ED room 2. Patient was in agreeable to be evaluated in ED.
--- NOTE | 2022-02-01 15:26 | ONC.NURNOTE ---
message left for pt to have chemo tomorrow per Dr. Jarrett. pt to take his dex tonight and in am. Marixa will call in more to his pharmacy.
--- NOTE | 2022-02-02 11:06 | ONC.NURNOTE ---
Patient in ED 02/01/22 due to SOB etc and discharged with diagnosis of pneumonia. Dr. Jarrett reviewed ED note and chest x-ray and stated as long as patient did not have a fever he could be treated today. Dr. Jarrett did state he is available for any questions today if needed.
[2022-02-02 11:08] VITALS: BP 121/76; RESP 16; TEMP 36.8; O2SAT 97
--- NOTE | 2022-02-02 12:01 | ONC.NURNOTE ---
New Chemotherapy Teaching- treatment change -Reviewed self care at home -after hours management - go to local ER -reviewed possible side effects of cyramza and taxotere -consent signed -discussed nutrition, fatigue and exercise -pending MNT Consult if weight loss
[2022-02-02] MEDS: diphenhydrAMINE 25 MG in 0.9 % SODIUM CHLORIDE 100 ml 100 ML 402 MG IVPB (12:11)
[2022-02-02] MEDS: PALONOSETRON 0.25 MG/5 ML inj IVP (12:12)
[2022-02-02] MEDS: DOCEtaxeL 140 MG, TUBING SECONDARY 1 EACH in 0.9 % SODIUM CHL 250 ml Excel 250 ML 257 MG IVPB (13:53)
--- NOTE | 2022-02-02 15:41 | ONC.NURNOTE ---
Pt here for C1 Cyramza/Taxotere; tolerated well. Pt took/will take oral Dex Sun/Mon/Tue/Tue, as chemo was delayed from yesterday. Pt very sleepy throughout infusion d/t IV Benadryl prior to Cyramza. Reviewed using Compazine and Zofran PRN nausea at home. Pt to return tomorrow for Neulasta.
[2022-02-03 13:45] VITALS: BP 129/82; PULSE 78; RESP 16; TEMP 36.8; O2SAT 96
--- NOTE | 2022-02-03 13:47 | ONC.NURNOTE ---
Per Dr Jarrett- one more day of dexamethasone called to [facility] pharmacy 4 mg - 2 tabs BID the day after chemotherapy disp #4 with no refills this is an extra day of dosing due to chemotherapy held X 24 hours and patient needs one more day of dex to cover the day after chemo
[2022-02-03] MEDS: PEGFILGRASTIM 6 MG/0.6 ML SYRINGE SUBCUT (14:05)
--- NOTE | 2022-02-08 08:29 | ONC.NURNOTE ---
called to say Gene was admitted to [facility]. His cough increased. he had chest pain. states he is on antibiotics and has Rhinovirus. states he is going to be on Palative care. enc her to keep us informed.
--- NOTE | 2022-02-12 16:37 | ONC.NURNOTE ---
Patient called to ask if he would still need to be on his blood thinner. Patient on Eliquis and I'm not sure why he's on it and asked patient if his surgeon put him on it. Patient doesn't know who or why he's on it but thinks he has a week left so he is calling his surgeon and investment underwriter will also check next week to see if he needs to continue. He also states he has had a bad week but feels like he's turned the corner because he wasn't eating and went to his primary and found out he has thrush. State's the medicine is helping but also ask now if he gets pain he needs to know if he can get more pain pills. Has been out for 1 week and is fine now but wondering about this. Herbarium Curator told him to call Tuesday am if weekend is problematic with eating/pain or anything and we can get him into a provider. Herbarium Curator put him in for Monday 02/19 at 1100
--- NOTE | 2022-02-15 15:24 | ONC.NURNOTE ---
Gene phoned in today with follow up He feels his appetite and food intake has improved reports eating whole sandwiches thrush is responding to treatment and taste and swallowing has improved so he can better tolerate food now reports that everything tasted terrible with active thrush Re: pain he has no oxy for 3-4 days which he states was tough talked to his ortho at [place] that placed the steel leilani fixation Gene's ortho filled a RX for #30 Oxy 10mg Gene is using 1/2 tab 3 times a day or less he has been cleared to add Ibuprofen now post op for pain management gene asks about next refills -he sees Cecilia VicenteGonzales this week and can talk to her about our clinic filling oxycodone -marketing writer also encouraged Gene to connect with his PCP about managing his pain medication- that is usually a better option PCP is Dr Martin in [place] chis will contact his
[2022-02-25 10:16] LABS: Basophils Percent Auto 0.2 % (0.0-3.0); Eosinophils Percent Auto 0.5 % (0.0-7.0); Hematocrit 33.7 % (37.0-53.0); Hemoglobin* 10.7 gm/dL (13.5-17.5); Immature Granulocytes Pct Auto 6.2 %; Lymphocytes Percent Auto 5.2 % (20-44); Mean Corpuscular HGB Conc 32 gm/dL (32-36); Mean Corpuscular Hemoglobin 29 pg (26-34); Mean Corpuscular Volume 92 fL (80-100); Monocytes Percent Auto 10.4 % (0.0-11.0); Neutrophils Percent Auto 77.5 % (42.0-72.0); Platelet Count* 366 K/uL (140-440); RDW Coefficient of Variation % 16.2 % (11.5-15.5); Red Blood Count 3.67 m/uL (4.30-5.90); White Blood Count* 11.01 K/uL (4.50-11.00)
[2022-02-25 10:29] LABS: Albumin* 3.5 g/dL (3.3-5.0); Chloride* 101 mmol/L (96-114)
[2022-02-25 10:30] LABS: Potassium* 3.9 mmol/L (3.6-5.1); Sodium* 138 mmol/L (135-149)
[2022-02-25 10:32] LABS: Bilirubin Total* 0.3 mg/dL (0.1-1.5); Carbon Dioxide* 26 mmol/L (20-32); Creatinine* 0.6 mg/dL (0.5-1.5); Estimated Glomerular Filt Rate 110 ml/min
[2022-02-25 10:33] LABS: Alanine Aminotransferase* 19 U/L (4-50); Alkaline Phosphatase* 130 U/L (40-150); Aspartate Amino Transferase* 25 U/L (12-35); Blood Urea Nitrogen* 22 mg/dL (7-30); Calcium* 9.5 mg/dL (8.4-10.6); Glucose* 101 mg/dL (60-115); Total Protein* 6.4 g/dL (6.0-8.3)
[2022-02-25 10:46] LABS: Slide Review Reflex No
[2022-02-25] MEDS: PALONOSETRON 0.25 MG/5 ML inj IVP (13:21)
[2022-02-25] MEDS: dexAMETHasone 20 MG in 0.9 % SODIUM CHLORIDE 100 ml 100 ML 408 MG IVPB (13:21)
[2022-02-25] MEDS: diphenhydrAMINE 25 MG in 0.9 % SODIUM CHLORIDE 100 ml 100 ML 402 MG IVPB (13:42)
[2022-02-25] MEDS: DOCEtaxeL 140 MG, TUBING SECONDARY 1 EACH in 0.9 % SODIUM CHL 250 ml Excel 250 ML 257 MG IVPB (14:56)
--- NOTE | 2022-02-26 16:26 | ONC.NURNOTE ---
Pt missed appt for Neulasta. Coordinated with Med Surg unit to receive Neulasta injection tomorrow Tuesday 02/27 @ 1000; LM for pt of timing with contact info for Med Surg. Pharmacy updated.
[2022-02-27] MEDS: PEGFILGRASTIM 6 MG/0.6 ML SYRINGE SUBCUT (10:18)
[2022-02-27 10:30] VITALS: BP 108/69; PULSE 80; RESP 20; TEMP 36.6; O2SAT 90
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
--- NOTE | 2022-03-09 09:13 | ONC.NURNOTE ---
Prior authorization required for patients morphine ER. This was approved by a call to [employer] [facility] through 03/09/2023. PA: [id number]
--- NOTE | 2022-03-11 09:03 | ONC.NURNOTE ---
called stating Gene was in pain. Per Sara Howard APRN patient is to take oxy every 4 hr prn. not every 2 hrs as Luiza instructed him. Pt recently put on MS ER for better pain relief. enc to call us if pt not getting pain controlled.
--- NOTE | 2022-03-15 15:54 | ONC.NURNOTE ---
Patient's left message on machine over the weekend about patient holding off on hospice care, as he would like to have his PET scan prior to this decision. They left message about needing pain medications, but that they have reached out to their primary care as well. Asian Studies Professor attempted to contact patient and spouse about the above and education on using only one provider for providing pain medications. No return call at end of the day.
== END 2022-05-29 23:59 | disposition home or self-care (01) ==
LOC: CCIC 10:45
PROVIDERS: Clinical Nurse Specialist; PCP Internal Medicine Medical Oncology; Referring Provider Internal Medicine Medical Oncology; Visit Provider Internal Medicine Medical Oncology
DX: C34.91 Malignant neoplasm of unspecified part of right bronchus or lung (principal)
CPT/HCPCS: 36415; 80053; 85025; 96372; 96376; 96413; 96415; 96417; 99211; 99212; 99213; 99214; 99215; J2506; J1100; J1200; J2469; J7050; J9171; J9308